=== PATIENT | female | born 1955 | race Caucasian/White ===

== ENCOUNTER → 2016-05-12 | Outpatient (CLI) | payer OTHER ==
[~2016-05-12] MED LIST: CHOL100027 PO; CLC100X PO; CLON1TAB3 PO; CLTP PO; EFFSR75 PO; FURO20TA PO; IBUP-1050 PO; LEVO100T PO; LISI-792 PO; NRN/300 PO; OMEP40CA41 PO; POTA-327 PO; ULT/50 PO
--- NOTE | 2016-05-12 13:16 | MAMMOGRAPHY REPORT ---
BILATERAL DIGITAL SCREENING MAMMOGRAM TOMOSYNTHESIS WITH CAD: 05/12/2016 CLINICAL HISTORY: Routine screening. Patient has no complaints. TECHNIQUE: Breast tomosynthesis in addition to standard 2D mammography was performed. Current study was also evaluated with a Computer Aided Detection (CAD) system. COMPARISON: Comparison is made to exams dated: 04/24/2015 mammogram, 02/10/2014 mammogram, 01/15/2013 mammogram, 01/17/2012 mammogram, 12/24/2010 mammogram, and 12/17/2009 mammogram - [facility]. BREAST COMPOSITION: There are scattered areas of fibroglandular density in both breasts. FINDINGS: No suspicious masses, calcifications, or areas of architectural distortion are noted in e ither breast. There has been no significant interval change compared to prior exams. IMPRESSION: ACR BI-RADS CATEGORY 1: NEGATIVE There is no mammographic evidence of malignancy. A 1 year screening mammogram is recommended. The p atient will receive written notification of the results. Approximately 10% of breast cancers are not detected with mammography. A negative mammographic repor t should not delay biopsy if a clinically suggestive mass is present. Ingris Noble M.D. ah/:05/12/2016 12:46:22 General Cargo Clerk: Shala VILLASENOR(Romero)(M), [facility] letter sent: Normal 1/2 BI-RADS Code: ACR BI-RADS Category 1: Negative
== END | disposition home or self-care (01) ==
LOC: C.MAMM 11:32
PROVIDERS: ATTEND Family Medicine
DX: Z12.31 Encounter for screening mammogram for malignant neoplasm of breast (principal)

== ENCOUNTER 2020-11-02 00:29 | Inpatient (IN) ==
[2020-11-02] MEDS ORDERED: SODIUM CHLORIDE 0.9% 1000ML 1,000 ML IV ONE (00:55)
[2020-11-02] MEDS ORDERED: KETOROLAC TROMETHAMINE 15 MG/ML VIAL IV STA (00:55)
[2020-11-02] MEDS ORDERED: ACETAMINOPHEN 500 MG TAB PO STA (00:55)
--- NOTE | 2020-11-02 01:00 | Emergency Department Note ---
Impression & Plan Pneumonia due to COVID-19 virus, Total body pain, Hypoxia ED Provider Note Name: FILIBERTO SIMMONS Age: 65 Sex: F Arrives Via: Ambulance Informant: Patient ED Provider: Reagan Galeana MD Chief Complaint: Shortness of breath Impression: See Above Medical Decision Makin yr old female with extensive PMH who arrives with 10 days of covid symptoms, weakness and worsening breathing difficulty last few days. Arrives via ems as too shob and weak to get around at home. Exam with diffuse crackles throughout the no wheezing, TTP anywhere on body, and generally weak. Unable to ambulate due to weakness thsu given IV fluids. Labs obtained with elevated dimer. CXR with covid findings. EKG without ischemia. CTA chest with covid pneumonia without pe. Patient a bit improved with fluids though sats starting to trend down. She is not tolerating outpatient management and I do not feel she will do well with attempt to send home. With worsening sats seems reasonable trying steroids thus Decadron given. Prior Medical Record and Triage/Nursing Notes reviewed by Me Additional history obtained from chart Differentials:Reactive airway disease, pneumonia, pneumothorax, COPD, CHF, infections, cardiac ischemia, pulmonary embolism, musculoskeletal, gastrointestinal, as well as other pathologies. Vital Signs: reviewed and remarkable for mild hypoxia Interventions: saline lock, nss bolus, tylenol po, toradol iv, morphine iv, decadron iv Labs:Reviewed and remarkable for +dimer Imaging:X ray results are stated below per my interpretation: Chest: 1 view: Covid pnuemonia pattern [facility] Radiologist interpretation reviewed by me: CT A Chest No acute PE. Diffuse multifocal viral pattern EKG:Per My Interpretation: Indication SOB: NSR 81 bpm, qtc 455. No Ectopy. No Ischemia. Compared to EKG 05/03/11, no significant changes. Cardiac/Tele Monitoring: Cardiac Monitoring: An Order was placed for continuous cardiac monitoring. The monitor shows a rate of 80 with a normal sinus rhythm. Consults:Dr Aram Solomon hospitalist Plan: Disposition:Hospitalization. Condition: Good History of Present Illness:65 yr old female arrives for evaluation of covid symptoms. Patient positive for covid about 10 days ago. She has had coughs, chills, chest pains, headaches, shortness of breath, body aches, fevers, weakness. No syncope, abdominal pain, nausea, vomiting, urinary/bowel symptoms, leg swelling, rashes, nor other symptoms. No medications taken for this. Exertion makes body aches worse, rest makes better. Arrives as symptoms have not yet resolved. Did not receive covid vaccination. ROS: See above HPI for pertinent positives & negatives. A total of 10 systems reviewed and were otherwise negative. Past Medical History:See Below Past Surgical History:See Below Family History:See Below Social History:See Below Home Medications:See Below Allergies:Paroxetine Vitals:Blood Pressure: 165/77, Pulse 79, RR 22, T 37.1C, O2 92% on RA Physical Exam: GENERAL: Patient is tired appearing and in minimal distress. EYES: No scleral icterus, unremarkable pupils. ENT: Mucous membranes moist, no nasal congestion. NECK: No masses appreciated, nomeningismus, trachea is midline. RESPIRATORY: No dyspnea. Clear to auscultation and equal bilaterally. No wheeze, no rhonchi. CARDIOVASCULAR: Regular rate and rhythm.No murmurs, rubs, gallops appreciated. GASTROINTESTINAL: Abdomen soft, non-tender, no peritonitis.Bowel sounds positive.No masses appreciated. BACK: No midline tenderness, no CVA tenderness EXTREMITIES: Normal motion all extremities, no cyanosis, no edema. NEUROLOGIC: Alert and oriented, no acute motor or sensory deficits, no focal weakness, cranial nerves grossly intact. SKIN: No rash, no jaundice, no diaphoresis. PSYCH: Appropriate GCS: 15 ED Course: Times/Reassessments: gradually improving weakness though sats trending down. Too weak to even walk to bathroom unassisted Reagan Galeana MD Past Med/Surg History Medical History Carpal tunnel syndrome Depression Fibromyalgia Heart disease Hypertension Surgical History History of cholecystectomy History of hand surgery Social History Smoking Status: Never smoker Second Hand Exposure: No; Do You Dip or Chew Tobacco: No; Hx Alcohol Use: Yes Alcohol type: wine Hx Substance Use: No Preferred Language: Uzbek Communication Ability: Effective Visual Impairment: No Limitations Hearing Ability: Normal Theatrical Dresser Required: No Beliefs That Will Affect Care: None Current Living Situation: Family current occupational status: unemployed Other Information That Helps Us Care for You: No Feels Safe at Home: Yes Safety Concerns: Feels Safe At This Time Assistive Devices: Denture - Upper, Denture - Lower, Glasses and Hearing Aid - Bilateral Allergies Allergies Allergy/AdvReac Type Severity Reaction Status Date / Time paroxetine AdvReac Unknown Dizziness. Verified 11/02/20 02:11 Home Meds Home Medications Medication Instructions Recorded Confirmed aspirin 81 mg tablet,delayed 81 mg PO DAILY 10/12/18 11/02/20 release (Aspir-) atorvastatin 20 mg tablet 20 mg PO PM 10/12/18 11/02/20 cholecalciferol (vitamin D3) 25 1,000 unit PO DAILY 10/12/18 11/02/20 mcg (1,000 unit) capsule (Vitamin D3) diclofenac sodium 1 % topical gel 2 g TOPICAL QID PRN 10/12/18 11/02/20 (Voltaren) furosemide 20 mg tablet (Lasix) 20 mg PO DAILY 10/12/18 11/02/20 levothyroxine 100 mcg tablet 100 mcg PO QAM 10/12/18 11/02/20 (Synthroid) losartan 25 mg tablet (Cozaar) 25 mg PO DAILY 10/12/18 11/02/20 omeprazole 20 mg capsule,delayed 40 mg PO DAILY 10/12/18 11/02/20 release potassium chloride 10 mEq 10 meq PO DAILY 10/12/18 11/02/20 tablet,extended release(part/cryst) (Klor-Con M) doxepin 50 mg capsule 50 mg PO BID 11/02/20 11/02/20 gabapentin 300 mg capsule 300 mg PO BID 11/02/20 11/02/20 levalbuterol tartrate 45 1 puff INHALATION Q4 PRN 11/02/20 11/02/20 mcg/actuation aerosol inhaler topiramate 100 mg tablet 200 mg PO BID 11/02/20 11/02/20 venlafaxine 150 mg 150 mg PO DAILY 11/02/20 11/02/20 capsule,extended release 24 hr venlafaxine 37.5 mg 37.5 mg PO DAILY 11/02/20 11/02/20 capsule,extended release 24 hr Results & Data (ED) Vital Signs Vital Signs - 24 hr 11/02/20 00:52 11/02/20 01:00 11/02/20 01:11 Temperature 36.8 C Temperature Source Oral Pulse Rate 83 79 Pulse Rate from SpO2 Sensor Respiratory Rate 18 17 Respiratory Effort / Characteristics Short of Breath Respiratory Depth Normal Respiratory Pattern Regular Blood Pressure 147/97 H 124/89 Blood Pressure Mean 113 100 Pulse Oximetry 93 93 93 Oxygen Delivery Method Room Air Room Air Room Air Sepsis Recent Fever Within 48 Hours No Sepsis New/Unexplained Change in Mental Status No Sepsis Action Taken by Nursing No Action Required 11/02/20 01:30 11/02/20 02:00 11/02/20 02:30 Temperature Temperature Source Pulse Rate 74 74 76 Pulse Rate from SpO2 Sensor 76 Respiratory Rate 18 18 14 Respiratory Effort / Characteristics Respiratory Depth Respiratory Pattern Blood Pressure 146/92 H 133/74 135/76 Blood Pressure Mean 110 93 95 Pulse Oximetry 95 97 96 Oxygen Delivery Method Room Air Room Air Sepsis Recent Fever Within 48 Hours Sepsis New/Unexplained Change in Mental Status Sepsis Action Taken by Nursing 11/02/20 03:00 11/02/20 03:30 11/02/20 04:00 Temperature Temperature Source Pulse Rate 71 74 68 Pulse Rate from SpO2 Sensor 71 69 Respiratory Rate 20 23 21 Respiratory Effort / Characteristics Respiratory Depth Respiratory Pattern Blood Pressure 136/78 115/76 136/89 Blood Pressure Mean 97 89 104 Pulse Oximetry 94 95 91 Oxygen Delivery Method Room Air Sepsis Recent Fever Within 48 Hours Sepsis New/Unexplained Change in Mental Status Sepsis Action Taken by Nursing 11/02/20 05:00 Temperature Temperature Source Pulse Rate 67 Pulse Rate from SpO2 Sensor Respiratory Rate 16 Respiratory Effort / Characteristics Respiratory Depth Respiratory Pattern Blood Pressure 149/96 H Blood Pressure Mean 113 Pulse Oximetry 92 Oxygen Delivery Method Sepsis Recent Fever Within 48 Hours Sepsis New/Unexplained Change in Mental Status Sepsis Action Taken by Nursing Laboratory Data Result diagrams: 11/02/20 00:45 11/02/20 00:45 Lab Results 11/02/20 11/02/20 11/02/20 Range/Units 00:45 00:45 00:45 WBC 3.84 L (4.8-10.8) K/uL RBC 4.22 (4.2-5.4) M/uL Hgb 12.3 (12.0-16.0) g/dL Hct 36.6 L (37-47) % MCV 86.7 (80-100) fL MCH 29.1 (25-34) pg MCHC 33.6 (32-36) g/dL RDW Std Deviation 47.5 H (36.4-46.3) fL RDW Coeff of Marielos 14.9 H (11.5-14.5) % Plt Count 230 (130-400) K/uL MPV 10.9 H (7.4-10.4) fL Immature Gran % (Auto) 0.5 % Neut % (Auto) 58.6 % Lymph % (Auto) 29.7 % [place] % (Auto) 10.7 % Eos % (Auto) 0.5 % Baso % (Auto) 0.0 % Neut # (Auto) 2.25 (1.4-6.5) K/uL Lymph # (Auto) 1.14 L (1.2-3.4) K/uL [place] # (Auto) 0.41 (0.11-0.59) K/uL Eos # (Auto) 0.02 (0-0.5) K/uL Baso # (Auto) 0.00 (0-0.2) K/uL Immature Gran # (Auto) 0.02 (0.00-0.02) K/uL D-Dimer 1750 H* (0-500) ug/L FEU Sodium 145 (136-145) mmol/L Potassium 3.5 (3.5-5.1) mmol/L Chloride 117 H (98-107) mmol/L Carbon Dioxide 17 L (21-32) mmol/L Anion Gap 11.0 (3-11) BUN 28 H (7-18) mg/dl Creatinine 1.15 (0.6-1.2) mg/dl Est Cr Clr Drug Dosing Not Reportable Est GFR ( Amer) 58.6 ml/min Est GFR (Non-Af Amer) 50.6 ml/min BUN/Creatinine Ratio 24.3 H (10-20) Glucose 97 (70-99) mg/dl Calcium 8.6 (8.5-10.1) mg/dl Total Bilirubin 0.4 (0.2-1) mg/dl Direct Bilirubin 0.2 (0-0.2) mg/dl AST 68 H (15-37) U/L ALT 57 (12-78) U/L Alkaline Phosphatase 58 (45-117) U/L Troponin I < 0.015 (0-0.045) ng/ml Total Protein 7.8 (6.4-8.2) gm/dl Albumin 3.2 L (3.4-5.0) gm/dl Administered Medications Potassium Chloride 40 meq/ (Lactated Ringer's) 1,020 mls @ 80 mls/hr IV .[id number] ONE Stop: 11/02/20 18:18 Last Admin: 11/02/20 05:55 Dose: 80 mls/hr Documented by: [id number] Remdesivir 200 mg/ Sodium (Chloride) 250 mls @ 125 mls/hr IV ONE STA; Protocol Stop: 11/02/20 07:33 Last Admin: 11/02/20 05:55 Dose: 125 mls/hr Documented by: [id number] Tramadol HCl (Tramadol Hcl 50 Mg Tablet) 25 - 50 mg PO Q4H PRN PRN Reason: Pain Stop: 12/02/20 05:33 Last Admin: 11/02/20 05:42 Dose: 50 mg Documented by: [id number] Discontinued Medications Acetaminophen (Acetaminophen 500 Mg Tab) 1,000 mg PO NOW STA Stop: 11/02/20 00:56 Last Admin: 11/02/20 01:24 Dose: 1,000 mg Documented by: [id number] Dexamethasone Sodium Phosphate (DexamethasonePf 10 Mg/Ml Vial) 10 mg IV NOW ONE Stop: 11/02/20 04:33 Last Admin: 11/02/20 04:40 Dose: 10 mg Documented by: [id number] Doxycycline Hyclate (Doxycycline Hyclate 100 Mg Cap) 100 mg PO NOW STA Stop: 11/02/20 05:35 Last Admin: 11/02/20 05:42 Dose: 100 mg Documented by: [id number] Sodium Chloride (Nss 1000ml) 1,000 mls @ 999 mls/hr IV .Q1H1M ONE Stop: 11/02/20 01:55 Last Infusion: 11/02/20 02:25 Dose: 0 mls/hr Documented by: [id number] Admin: 11/02/20 01:24 Dose: 999 mls/hr Documented by: [id number] Ioversol (Optiray 320 125ml) 125 ml IV ONCE ONE Stop: 11/02/20 02:32 Last Admin: 11/02/20 02:31 Dose: 119 ml Documented by: [id number] Ketorolac Tromethamine (Ketorolac Tromethamine 15 Mg/Ml Vial) 10 mg IV NOW STA Stop: 11/02/20 00:56 Last Admin: 11/02/20 01:23 Dose: 10 mg Documented by: [id number] Morphine Sulfate (Morphine Sulfate 10 Mg/Ml Carp/Vial) 6 mg IV NOW STA Stop: 11/02/20 03:23 Last Admin: 11/02/20 03:30 Dose: 6 mg Documented by: [id number] Ondansetron HCl (Ondansetron Inj 2 Mg/Ml 2 Ml Vial) 4 mg IV NOW STA Stop: 11/02/20 03:23 Last Admin: 11/02/20 03:30 Dose: 4 mg Documented by: [id number] Discharge Plan Visit Data Chief Complaint: Shortness of Breath/Dyspnea Stated Complaint: +COVID; CHEST PAIN;SHORT OF BREATH; DIARRHEA ED Provider: Reagan Galeana Discharge Problem: Pneumonia due to COVID-19 virus, Total body pain, Hypoxia Patient Disposition: Admitted As Inpatient Discharge Instructions Interventions: ED Discharge Assessment Last Done: 11/02/20 06:08
[2020-11-02 01:09] LABS: Eosinophils # (auto) 0.02 K/uL (0-0.5); Eosinophils % (auto) 0.5 %; Hematocrit (blood only) 36.6 % (37-47); Hemoglobin 12.3 g/dL (12.0-16.0); Immature Granulocytes # (auto) 0.02 K/uL (0.00-0.02); Immature Granulocytes % (auto) 0.5 %; Lymphocytes # (auto) 1.14 K/uL (1.2-3.4); Lymphocytes % (auto) 29.7 %; Mean Corpuscular Hemoglobin 29.1 pg (25-34); Mean Corpuscular Hgb Conc 33.6 g/dL (32-36); Mean Corpuscular Volume 86.7 fL (80-100); Mean Platelet Volume 10.9 fL (7.4-10.4); Monocytes # (auto) 0.41 K/uL (0.11-0.59); Monocytes % (auto) 10.7 %; Neutrophils # (auto) 2.25 K/uL (1.4-6.5); Neutrophils % (auto) 58.6 %; Platelet Count 230 K/uL (130-400); RDW Coefficient of Variation 14.9 % (11.5-14.5); RDW Standard Deviation 47.5 fL (36.4-46.3); Red Blood Count 4.22 M/uL (4.2-5.4); White Blood Count 3.84 K/uL (4.8-10.8)
[2020-11-02 01:18] LABS: Alanine Aminotransferase 57 U/L (12-78); Albumin Level 3.2 gm/dl (3.4-5.0); Aspartate Aminotransferase 68 U/L (15-37); BUN Creatinine Ratio 24.3 (10-20); Bilirubin Direct 0.2 mg/dl (0-0.2); Blood Urea Nitrogen 28 mg/dl (7-18); Calcium 8.6 mg/dl (8.5-10.1); Carbon Dioxide 17 mmol/L (21-32); Chloride 117 mmol/L (98-107); Est GFR (African American) 58.6 ml/min; Est GFR (Non-African American) 50.6 ml/min; Glucose 97 mg/dl (70-99); Potassium 3.5 mmol/L (3.5-5.1); Sodium 145 mmol/L (136-145)
[2020-11-02 01:23] LABS: Alkaline Phosphatase 58 U/L (45-117); Bilirubin,Total 0.4 mg/dl (0.2-1); Total Protein 7.8 gm/dl (6.4-8.2); Troponin I < 0.015 ng/ml (0-0.045)
[2020-11-02 01:32] LABS: D Dimer 1750 ug/L FEU (0-500)
[2020-11-02] MEDS ORDERED: OPTIRAY 320 125ml IV ONE (02:31)
[2020-11-02] MEDS ORDERED: MoRPHine SULFATE 10 MG/ML CARP/VIAL IV STA (03:22)
[2020-11-02] MEDS ORDERED: ONDANSETRON INJ 2 MG/ML 2 ML VIAL IV STA (03:22)
[2020-11-02] MEDS ORDERED: dexAMETHasone**PF** 10 MG/ML VIAL IV ONE (04:32)
--- NOTE | 2020-11-02 05:22 | History & Physical Report ---
Date of Service November 02, 2020 Assessment & Plan (1) Pneumonia due to COVID-19 virus: Plan: Severe illness given O2 sats less than 94% Complicated bronchitis, patient not septic chronic diastolic heart failure (EF 55%, TTE 2019), patient on the dry side hx nonocclusive CAD/PVD hypertension, slightly elevated secondary to illness mood disorder/schizophrenia/fibromyalgia, at baseline hypothyroidism, euthyroid as of recent outpatient TSH Medical telemetry Decadron, Remdesivir for severe COVID-19 pneumonia (Patient was counseled regarding potential adverse effects from Remdesivir therapy and provided with patient education sheet.) Facilitate home BP meds, may be dose titration IVF, hold home diuretic until patient euvolemic DVT prophylaxis. Lovenox subcu Full code Text document was generated using iWelcome voice recognition software. It may contain grammatical or spelling errors. Kindly contact undersigned for clarification of any documentation item in question. History of Present Illness Chief Complaint: Worsening shortness of breath, Covid Primary Care Provider: Kennedy Brooks MD History obtained from patient and records. Medical history significant for chronic diastolic heart failure (EF 55%, TTE 2019), nonocclusive CAD, hypertension, PVD, mood disorder/schizophrenia/fibromya lgia, hypothyroidism. Last confinement 2006 for headache, possibly psychogenic. Plan 10 days ago, patient noted flulike illness after being at the [employer] [place] with her daughter. Dry cough symptoms, congestion, body aches and pain. Patient received COVID-19 vaccine at [facility] few months back. Patient seen at the ER. COVID-19 test was positive. Patient discharged home and advised to self quarantine and return to ER for worsening symptoms. Worsening cough symptoms productive of yellow sputum with chills. Worsening shortness of breath. Chest pain from coughing as per patient Patient returned to the ER last night. Lowest O2 sats at the ER was 92 on room air IV Decadron given at the ER. 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 Verified 11/02/20 02:11 Home Medications Medication Instructions Recorded Confirmed Type aspirin 81 mg tablet,delayed 81 mg PO DAILY 10/12/18 11/02/20 History release (Aspir-) atorvastatin 20 mg tablet 20 mg PO PM 10/12/18 11/02/20 History cholecalciferol (vitamin D3) 25 1,000 unit PO DAILY 10/12/18 11/02/20 History mcg (1,000 unit) capsule (Vitamin D3) diclofenac sodium 1 % topical gel 2 g TOPICAL QID PRN 10/12/18 11/02/20 History (Voltaren) furosemide 20 mg tablet (Lasix) 20 mg PO DAILY 10/12/18 11/02/20 History levothyroxine 100 mcg tablet 100 mcg PO QAM 10/12/18 11/02/20 History (Synthroid) losartan 25 mg tablet (Cozaar) 25 mg PO DAILY 10/12/18 11/02/20 History omeprazole 20 mg capsule,delayed 40 mg PO DAILY 10/12/18 11/02/20 History release potassium chloride 10 mEq 10 meq PO DAILY 10/12/18 11/02/20 History tablet,extended release(part/cryst) (Klor-Con M) doxepin 50 mg capsule 50 mg PO BID 11/02/20 11/02/20 History gabapentin 300 mg capsule 300 mg PO BID 11/02/20 11/02/20 History levalbuterol tartrate 45 1 puff INHALATION Q4 PRN 11/02/20 11/02/20 History mcg/actuation aerosol inhaler topiramate 100 mg tablet 200 mg PO BID 11/02/20 11/02/20 History venlafaxine 150 mg 150 mg PO DAILY 11/02/20 11/02/20 History capsule,extended release 24 hr venlafaxine 37.5 mg 37.5 mg PO DAILY 11/02/20 11/02/20 History capsule,extended release 24 hr Past Med/Surg History Medical History Carpal tunnel syndrome Depression Fibromyalgia Heart disease Hypertension Surgical History History of cholecystectomy History of hand surgery Social History Smoking Status: Never smoker Second Hand Exposure: No; Do You Dip or Chew Tobacco: No; Hx Alcohol Use: Yes Alcohol type: wine Hx Substance Use: No Preferred Language: Romanian Communication Ability: Effective Visual Impairment: No Limitations Hearing Ability: Normal Asbestos Cloth Inspector Required: No Beliefs That Will Affect Care: None Current Living Situation: Family current occupational status: unemployed Other Information That Helps Us Care for You: No Feels Safe at Home: Yes Safety Concerns: Feels Safe At This Time Assistive Devices: Denture - Upper, Denture - Lower, Glasses and Hearing Aid - Bilateral Review of Systems Review of Systems: As per HPI, all 10 systems reviewed, all other ROS negative Physical Exam Physical Exam: GENERAL: Anxious, morbidly obese, pleasant, slightly hard of hearing, no respiratory distress SKIN: Normal color, warm HEENT: [place] palpebral conjunctivae, no ptosis, dry buccal mucosa NECK : Supple, short neck, no tenderness CHEST : Decreased breath sounds, no tenderness HEART : RRR, no obvious murmurs ABDOMEN: Some distention, nontender EXTREMITIES : Minimal LE swelling, no LE tenderness, no other conspicuous defo rmities noted NEUROLOGIC : Coherent, no facial asymmetry, mild hearing impairment, no other gross focality Results & Data Results & Data ([facility]) Vital Signs (Past 12 Hours) Vital Signs Temp Pulse Resp BP Pulse Ox 11/02/20 04:00 68 21 136/89 91 11/02/20 03:30 74 23 115/76 95 11/02/20 03:00 71 20 136/78 94 11/02/20 02:30 76 14 135/76 96 11/02/20 02:00 74 18 133/74 97 11/02/20 01:30 74 18 146/92 H 95 11/02/20 01:11 93 11/02/20 01:00 79 17 124/89 93 11/02/20 00:52 36.8 C 83 18 147/97 H 93 Laboratory Results Laboratory Results WBC 3.84 K/uL (4.8-10.8) L 11/02/20 00:45 RBC 4.22 M/uL (4.2-5.4) 11/02/20 00:45 Hgb 12.3 g/dL (12.0-16.0) 11/02/20 00:45 Hct 36.6 % (37-47) L 11/02/20 00:45 MCV 86.7 fL (80-100) 11/02/20 00:45 MCH 29.1 pg (25-34) 11/02/20 00:45 MCHC 33.6 g/dL (32-36) 11/02/20 00:45 RDW Std Deviation 47.5 fL (36.4-46.3) H 11/02/20 00:45 RDW Coeff of Marielos 14.9 % (11.5-14.5) H 11/02/20 00:45 Plt Count 230 K/uL (130-400) 11/02/20 00:45 MPV 10.9 fL (7.4-10.4) H 11/02/20 00:45 Immature Gran % (Auto) 0.5 % 11/02/20 00:45 Neut % (Auto) 58.6 % 11/02/20 00:45 Lymph % (Auto) 29.7 % 11/02/20 00:45 [place] % (Auto) 10.7 % 11/02/20 00:45 Eos % (Auto) 0.5 % 11/02/20 00:45 Baso % (Auto) 0.0 % 11/02/20 00:45 Neut # (Auto) 2.25 K/uL (1.4-6.5) 11/02/20 00:45 Lymph # (Auto) 1.14 K/uL (1.2-3.4) L 11/02/20 00:45 [place] # (Auto) 0.41 K/uL (0.11-0.59) 11/02/20 00:45 Eos # (Auto) 0.02 K/uL (0-0.5) 11/02/20 00:45 Baso # (Auto) 0.00 K/uL (0-0.2) 11/02/20 00:45 Immature Gran # (Auto) 0.02 K/uL (0.00-0.02) 11/02/20 00:45 D-Dimer 1750 ug/L FEU (0-500) H* 11/02/20 00:45 Sodium 145 mmol/L (136-145) 11/02/20 00:45 Potassium 3.5 mmol/L (3.5-5.1) 11/02/20 00:45 Chloride 117 mmol/L (98-107) H 11/02/20 00:45 Carbon Dioxide 17 mmol/L (21-32) L 11/02/20 00:45 Anion Gap 11.0 (3-11) 11/02/20 00:45 BUN 28 mg/dl (7-18) H 11/02/20 00:45 Creatinine 1.15 mg/dl (0.6-1.2) 11/02/20 00:45 Est Cr Clr Drug Dosing Not Reportable 11/02/20 00:45 Est GFR ( Amer) 58.6 ml/min 11/02/20 00:45 Est GFR (Non-Af Amer) 50.6 ml/min 11/02/20 00:45 BUN/Creatinine Ratio 24.3 (10-20) H 11/02/20 00:45 Glucose 97 mg/dl (70-99) 11/02/20 00:45 Calcium 8.6 mg/dl (8.5-10.1) 11/02/20 00:45 Total Bilirubin 0.4 mg/dl (0.2-1) 11/02/20 00:45 Direct Bilirubin 0.2 mg/dl (0-0.2) 11/02/20 00:45 AST 68 U/L (15-37) H 11/02/20 00:45 ALT 57 U/L (12-78) 11/02/20 00:45 Alkaline Phosphatase 58 U/L (45-117) 11/02/20 00:45 Troponin I < 0.015 ng/ml (0-0.045) 11/02/20 00:45 Total Protein 7.8 gm/dl (6.4-8.2) 11/02/20 00:45 Albumin 3.2 gm/dl (3.4-5.0) L 11/02/20 00:45 Diagnostic Findings CTA chest initial read: No previous studyfor comparison. Heart is mildlyenlarged with a left ventricular configuration. Proximal thoracic aorta is mildlydistended measuring 4.6 x 4.2 cm. Evaluation of the pulmonaryarteries is mildlylimited bydelayed phase of contrast enhancement (195 pound 40 units in the main pulmonaryartery. Some contrast is visualized within segmental vessels without filling defect. Thoracic esophagus appears normal. Mediastinal lymph nodes are not enlarged. Central airways appear normal. There are multifocal patchyairspace opacities. There is no pneumothorax or pleural fluid collection. Impression: Multifocal airspace opacitysuggesting multifocal pneumonia such as a Covid pneumonia EKG as per my interpretation rate 80, NSR, LAD, LAFB, LVH, serial abnormalities inferior leads
[2020-11-02] MEDS ORDERED: REMDESIVIR 200 MG in SODIUM CHLORIDE 0.9% 210 ML IV STA (05:34)
[2020-11-02] MEDS ORDERED: POTASSIUM CHLORIDE 40 MEQ in LACTATED RINGER'S 1,000 ML IV ONE (05:34)
[2020-11-02] MEDS ORDERED: DOXYCYCLINE HYCLATE 100 MG CAP PO STA (05:34)
[2020-11-02] MEDS: traMADol HCL 50 MG TABLET PO PRN ×2 (05:42→17:08)
[2020-11-02] MEDS ORDERED: PROMETHAZINE HCL 12.5 MG in SODIUM CHLORIDE 0.9% 50 ML IV PRN (06:28)
[2020-11-02] MEDS ORDERED: ACETAMINOPHEN 325 MG TAB PO PRN (06:28)
[2020-11-02] MEDS: LEVOTHYROXINE SODIUM 100 MCG TABLET PO SCH (07:30)
[2020-11-02] MEDS: PANTOprazole 40 MG TAB PO SCH (07:30)
[2020-11-02] MEDS: LEVALBUTEROL TARTRATE 15 GM HFA.AER.AD INH SCH ×3 (07:53→19:21)
--- NOTE | 2020-11-02 08:46 | XRay Report ---
XR chest 1V portable CLINICAL HISTORY: covid, chest pain COMPARISON STUDY: October 24, 2020 FINDINGS: No pneumothorax. No pleural effusion. Interval worsening of previously seen reticular opacities with interval development of superimposed patchy airspace component involving predominantly bilateral mid to lower lungs. Cardiomediastinal silhouette is slightly enlarged since prior study which could be exaggerated by por table technique and slightly decreased inspiratory effort. Minimal pulmonary vascular congestion is seen. Aorta is tortuous.. Osseous structures: Minimal degenerative changes of the spine. IMPRESSION: 1. Interval worsening of infiltrative opacities within bilateral lungs which might represent multifo reginald pneumonia. 2. Mild interval prominence of cardiomediastinal silhouette and pulmonary vascular congestion. Pleas e correlate above-mentioned findings with clinical presentation of cardiac abnormalities. Attention o n follow-up imaging. ACT 112: Negative or not required by law. The above report was generated using voice recognition software. It may contain grammatical, syntax o r spelling errors. Electronically signed by: Deisy Pérez DO 11/02/2020 8:45 AM
[2020-11-02] MEDS: TOPIRAMATE 100 MG TAB PO SCH ×2 (09:00→19:49)
[2020-11-02] MEDS: ENOXAPARIN INJ 40 MG/0.4 ML SYR SQ SCH (09:00)
[2020-11-02] MEDS: VENLAFAXINE HCL XR 37.5 MG CAPXR PO SCH (09:01)
[2020-11-02] MEDS: ASPIRIN 81 MG ECTAB PO SCH (09:01)
[2020-11-02] MEDS: guaiFENesin 600 MG TABCR PO SCH ×2 (09:01→19:49)
[2020-11-02] MEDS: VENLAFAXINE HCL XR 150 MG CAPXR PO SCH (09:01)
[2020-11-02] MEDS: LOSARTAN POTASSIUM 25 MG TAB PO SCH (09:01)
[2020-11-02] MEDS: GABAPENTIN 300 MG CAP PO SCH ×2 (09:01→19:48)
--- NOTE | 2020-11-02 09:08 | CT Scan Report ---
CT ANGIOGRAM OF THE CHEST CLINICAL HISTORY: PE. COVID + COMPARISON STUDY: No previous studies for comparison. TECHNIQUE: Following the IV administration of 119 mL of Optiray, CT angiogram of the thorax was perfo rmed from the thoracic inlet to the lung bases utilizing the pulmonary embolus protocol. Images are r eviewed in the axial, sagittal, and coronal planes. IV contrast was administered without complication . MIP imaging was performed. A dose lowering technique was utilized adhering to the principles of [place] SHREYA. CT DOSE: 738.07 mGy.cm FINDINGS: No definite pulmonary embolus is seen however opacification within main pulmonary artery is insuffici ent for adequate evaluation for pulmonary embolus. Main pulmonary artery is normal in caliber. Right and left pulmonary arteries are mildly dilated. No evidence of right heart strain. Ascending and descending portion of thoracic aorta are ectatic, measuring up to 4.4 cm within its asc ending portion and 3.1 cm within this descending aspect. No significant atherosclerotic involvement o f aortic wall is seen. No dissection is seen. Visualized greater arteries are patent. There is common origin of the right brachial and and left internal carotid arteries. There is no axillary, supra clavicle or internal mammary lymphadenopathy seen. Mediastinal lymph node s are not significantly enlarged. There is mild prominence of the right hilar lymph node measuring up to 1.6 cm in size, likely reactive. There is mild four-chamber cardiomegaly. No pericardial effusion. Mild coronary calcifications. Visualized portion of thyroid gland shows heterogeneous attenuation, enlarged left thyroid lobe and 1 .4 cm left thyroid nodule. Evaluation of esophagus shows mild hiatal hernia. Tracheobronchial tree is patent. There are multiple irregular centrilobular and peribronchovascular infiltrative opacities with surrou nding groundglass attenuation and minimal septal thickening are seen throughout bilateral lungs, most prominent within left lower lobe in this patient with history of Covid pneumonia. No pleural effusion seen. -4 mm pulmonary nodule is seen within right middle lobe (4/126) Limited evaluation of upper abdominal viscera shows no evidence of acute abnormalities. Concentric ca lcification is seen within subdiaphragmatic aspect of the right liver lobe. Osseous structures: Multilevel degenerative changes of the spine. Multiple subchondral cysts within t he right and left humeral heads. IMPRESSION: 1. No definite evidence of pulmonary embolus however opacification within main pulmonary artery is i nsufficient for adequate evaluation for pulmonary embolus. No evidence of right heart strain. Dilated right and left pulmonary arteries could be seen in pulmonary hypertension. 2. Multifocal pneumonia in this patient with history of Covid pneumonia. Small pulmonary nodule with in the right middle lobe might be due to infectious/inflammatory etiology. Short-term follow-up in 4- [address] of the chest on nonemergency basis is recommended. 3. Ectasia of ascending and descending portion of thoracic aorta without significant atherosclerotic involvement. Attention on follow-up imaging. 4. Large left thyroid lobe and 1.4 cm left thyroid nodule. Please correlate above-mentioned findings with prior history of thyroid disease. Further evaluation with thyroid ultrasound might be considere d. 5. The rest of findings as above. ACT 112: Positive. There are findings on this exam that require communication between the performing entity and the patient following Patient Test Result Information Act ([place] Act 112) guidelines. The above report was generated using voice recognition software. It may contain grammatical, syntax o r spelling errors. Electronically signed by: Deisy Pérez DO 11/02/2020 9:07 AM
[2020-11-02] MEDS: SODIUM CHLORIDE 0.9% 10ML FLUSH IV SCH (11:50)
--- NOTE | 2020-11-02 12:40 | Electrocardiogram Report ---
Test Reason : Blood Pressure : / mmHG Vent. Rate : 081 BPM Atrial Rate : 081 BPM P-R Int : 170 ms QRS Dur : 100 ms QT Int : 392 ms P-R-T Axes : 028 -19 020 degrees QTc Int : 455 ms Poor data quality, interpretation may be adversely affected Normal sinus rhythm Moderate voltage criteria for LVH, may be normal variant Borderline ECG When compared with ECG of 03-MAY-2011 11:40, Borderline criteria for Inferior infarct are no longer Present T wave amplitude has decreased in Anterior leads Confirmed by Jb Jackman ([id number]) on 11/02/2020 12:39:37 PM Referred By: REFERRED SELF Confirmed By:Jb Jackman
[2020-11-02] MEDS ORDERED: LEVALBUTEROL TARTRATE 15 GM HFA.AER.AD INH SCH (15:00)
--- NOTE | 2020-11-02 16:26 | Hospitalist Progress Note ---
Date of Service November 02, 2020 Assessment & Plan (1) Pneumonia due to COVID-19 virus: Plan: present on admission with worsening SOB, dry cough and chills COVID 19 positive on 10/24/20 CTA chest showed no definite evidence of pulmonary embolus however opacification within main pulmonary artery is insufficient for adequate evaluation for pulmonary embolus. No evidence of right heart strain. Multifocal pneumonia in this patient with history of Covid pneumonia. Started on dexamethasone and remdesivir on 11/02 (day#1) Continue oxygen supplement and guaifenesin Will monitor LFT while on Remdesivir Will follow inflammatory marker such as ESR, Ferritin, CRP Continue encourage patient about proning Continue doxycycline for possible bronchitis, will reassess Continue monitor closely Chronic diastolic heart failure No sign of volume overload Most recent EF 55%, TTE 2019) Will resume lasix in am Continue monitor Elevated D-dimer Due to acute illness with COVID 19 CTA chest showed no evidence of PE CAD Will hold statin while on Remdesivir Continue aspirin 81mg daily DVT prophylaxis. Lovenox subq Full code Admission and Anticipated Discharge Date Admission Date: November 02, 2020 Subjective Patient was seen and examined for follow-up of shortness of breath due to Covid 19 Lying in bed with no acute distress Patient said that she is having a hard time to bring up the phlegm She said that she has a dry cough Continue to require oxygen supplement Denies any chest pain, palpitation, dizziness, and fever. Physical Exam Physical Exam: General- No acute distress Head- atraumatic Eyes- PERRL, EOMI, ENT- oropharynx clear Neck- supple, no JVD Lungs- decrease BS Heart- regular rhythm; no murmur Abdomen- normal bowel sounds, soft, nontender Extremities- no calf tenderness Neuro- alert, oriented x 3; PERRL, EOMI; no facial palsy; no dysarthria Skin- warm & dry Results & Data Results & Data ([facility]) Vital Signs (Past 12 Hours) Vital Signs Temp Pulse Pulse Resp BP BP Pulse Ox 11/02/20 15:39 36.7 C 63 19 137/86 95 11/02/20 11:37 73 18 94 11/02/20 11:11 36.9 C 72 19 106/74 93 11/02/20 07:53 68 18 94 11/02/20 07:27 72 18 132/77 92 11/02/20 06:22 37.1 C 79 22 165/77 H 92 11/02/20 06:00 67 18 143/87 H 91 11/02/20 05:30 67 16 125/71 91 11/02/20 05:00 67 16 149/96 H 92
[2020-11-02] MEDS: DOXYCYCLINE HYCLATE 100 MG CAP PO SCH (19:48)
[2020-11-02] MEDS ORDERED: ATORVASTATIN 20 MG TAB PO SCH (21:00)
[2020-11-03] MEDS: LEVOTHYROXINE SODIUM 100 MCG TABLET PO SCH (05:48)
[2020-11-03] MEDS: PANTOprazole 40 MG TAB PO SCH (05:48)
[2020-11-03] MEDS: traMADol HCL 50 MG TABLET PO PRN ×2 (05:55→19:50)
[2020-11-03 06:22] LABS: Eosinophils # (auto) 0.02 K/uL (0-0.5); Eosinophils % (auto) 0.4 %; Hematocrit (blood only) 35.2 % (37-47); Hemoglobin 11.3 g/dL (12.0-16.0); Immature Granulocytes # (auto) 0.02 K/uL (0.00-0.02); Immature Granulocytes % (auto) 0.4 %; Lymphocytes # (auto) 1.23 K/uL (1.2-3.4); Lymphocytes % (auto) 25.4 %; Mean Corpuscular Hemoglobin 28.4 pg (25-34); Mean Corpuscular Hgb Conc 32.1 g/dL (32-36); Mean Corpuscular Volume 88.4 fL (80-100); Mean Platelet Volume 10.9 fL (7.4-10.4); Monocytes # (auto) 0.47 K/uL (0.11-0.59); Monocytes % (auto) 9.7 %; Neutrophils % (auto) 64.1 %; Platelet Count 231 K/uL (130-400); RDW Coefficient of Variation 15.1 % (11.5-14.5); RDW Standard Deviation 49.3 fL (36.4-46.3); Red Blood Count 3.98 M/uL (4.2-5.4); White Blood Count 4.84 K/uL (4.8-10.8)
[2020-11-03 06:52] LABS: Albumin Level 2.7 gm/dl (3.4-5.0); BUN Creatinine Ratio 24.4 (10-20); C Reactive Protein 0.9 mg/dl (0-0.29); Calcium 7.8 mg/dl (8.5-10.1); Creatinine Clr Calc Pharmacy 76.2 ml/min; Est GFR (African American) 71.2 ml/min; Est GFR (Non-African American) 61.4 ml/min; Potassium 3.5 mmol/L (3.5-5.1)
[2020-11-03 06:58] LABS: Albumin Globulin Ratio 0.7 (0.9-2); Bilirubin,Total 0.3 mg/dl (0.2-1); Ferritin 109.4 ng/ml (8-388); Globulin 3.9 gm/dl (2.5-4.0); Total Protein 6.6 gm/dl (6.4-8.2)
[2020-11-03] MEDS: LEVALBUTEROL TARTRATE 15 GM HFA.AER.AD INH SCH ×2 (07:16→19:56)
[2020-11-03] MEDS ORDERED: FUROSEMIDE 20 MG in SYRINGE 0 ML IV ONE (08:45)
[2020-11-03] MEDS: dexAMETHasone 6 MG in SYRINGE 0 ML IV SCH (09:08)
[2020-11-03] MEDS: ASPIRIN 81 MG ECTAB PO SCH (09:08)
[2020-11-03] MEDS: ENOXAPARIN INJ 40 MG/0.4 ML SYR SQ SCH (09:08)
[2020-11-03] MEDS: GABAPENTIN 300 MG CAP PO SCH ×2 (09:09→20:54)
[2020-11-03] MEDS: TOPIRAMATE 100 MG TAB PO SCH ×2 (09:09→20:54)
[2020-11-03] MEDS: guaiFENesin 600 MG TABCR PO SCH ×2 (09:09→20:54)
[2020-11-03] MEDS: VENLAFAXINE HCL XR 150 MG CAPXR PO SCH (09:10)
[2020-11-03] MEDS: LOSARTAN POTASSIUM 25 MG TAB PO SCH (09:10)
[2020-11-03] MEDS: VENLAFAXINE HCL XR 37.5 MG CAPXR PO SCH (09:10)
[2020-11-03] MEDS: FUROSEMIDE 20 MG TAB PO SCH (09:10)
[2020-11-03] MEDS: DOXYCYCLINE HYCLATE 100 MG CAP PO SCH ×2 (09:13→20:54)
[2020-11-03] MEDS: REMDESIVIR 100 MG in SODIUM CHLORIDE 0.9% 230 ML IV SCH (12:42)
[2020-11-03] MEDS: SODIUM CHLORIDE 0.9% 10ML FLUSH IV SCH (14:19)
--- NOTE | 2020-11-03 18:16 | Hospitalist Progress Note ---
Date of Service November 03, 2020 Assessment & Plan (1) Pneumonia due to COVID-19 virus: Plan: present on admission with worsening SOB, dry cough and chills COVID 19 positive on 10/24/20 CTA chest showed no definite evidence of pulmonary embolus however opacification within main pulmonary artery is insufficient for adequate evaluation for pulmonary embolus. No evidence of right heart strain. Multifocal pneumonia in this patient with history of Covid pneumonia. Started on dexamethasone and remdesivir on 11/02 (day#1) Continue oxygen supplement and guaifenesin Continue monitor LFT while on Remdesivir will follow inflammatory marker such as ESR, Ferritin, CRP Continue encourage patient about proning Continue doxycycline for possible bronchitis, will reassess Continue monitor closely Chronic diastolic heart failure No sign of volume overload Most recent EF 55%, TTE 2019) Lasix 20mg IV x1 given Will resume PO lasix Continue monitor Elevated D-dimer Due to acute illness with COVID 19 CTA chest showed no evidence of PE CAD Will hold statin while on Remdesivir Continue aspirin 81mg daily DVT prophylaxis. Lovenox subq Full code Admission and Anticipated Discharge Date Admission Date: November 02, 2020 Subjective Patient was seen and examined for follow-up of shortness of breath due to Covid 19 Lying in bed with no acute distress Patient said that she is having a hard time to bring up the phlegm She was saturated well on RA Denies any chest pain, palpitation, dizziness, and fever. Physical Exam Physical Exam: General- No acute distress Head- atraumatic Eyes- PERRL, EOMI, ENT- oropharynx clear Neck- supple, no JVD Lungs- decrease BS Heart- regular rhythm; no murmur Abdomen- normal bowel sounds, soft, nontender Extremities- no calf tenderness Neuro- alert, oriented x 3; PERRL, EOMI; no facial palsy; no dysarthria Skin- warm & dry Results & Data Results & Data ([facility]) Vital Signs (Past 12 Hours) Vital Signs Temp Pulse Pulse Resp BP Pulse Ox Pulse Ox 11/03/20 15:46 37.1 C 77 18 128/77 94 11/03/20 11:53 36.9 C 73 18 128/78 93 11/03/20 08:00 68 11/03/20 07:29 36.9 C 68 20 111/63 92 11/03/20 07:16 67 18 94 11/03/20 06:28 94
[2020-11-04] MEDS: PANTOprazole 40 MG TAB PO SCH (06:23)
[2020-11-04] MEDS: LEVOTHYROXINE SODIUM 100 MCG TABLET PO SCH (06:24)
[2020-11-04] MEDS: LEVALBUTEROL TARTRATE 15 GM HFA.AER.AD INH SCH (07:19)
[2020-11-04] MEDS ORDERED: LEVALBUTEROL TARTRATE 15 GM HFA.AER.AD INH PRN ×3 (07:38→07:49)
[2020-11-04] MEDS: ASPIRIN 81 MG ECTAB PO SCH (08:12)
[2020-11-04] MEDS: ENOXAPARIN INJ 40 MG/0.4 ML SYR SQ SCH (08:12)
[2020-11-04] MEDS: FUROSEMIDE 20 MG TAB PO SCH (08:12)
[2020-11-04] MEDS: VENLAFAXINE HCL XR 150 MG CAPXR PO SCH (08:12)
[2020-11-04] MEDS: VENLAFAXINE HCL XR 37.5 MG CAPXR PO SCH (08:12)
[2020-11-04] MEDS: TOPIRAMATE 100 MG TAB PO SCH ×2 (08:13→20:13)
[2020-11-04] MEDS: LOSARTAN POTASSIUM 25 MG TAB PO SCH (08:13)
[2020-11-04] MEDS: dexAMETHasone 6 MG in SYRINGE 0 ML IV SCH (08:13)
[2020-11-04] MEDS: DOXYCYCLINE HYCLATE 100 MG CAP PO SCH (08:13)
[2020-11-04] MEDS: guaiFENesin 600 MG TABCR PO SCH ×2 (08:13→20:13)
[2020-11-04] MEDS: GABAPENTIN 300 MG CAP PO SCH ×2 (08:13→20:13)
[2020-11-04] MEDS: traMADol HCL 50 MG TABLET PO PRN ×2 (08:27→20:12)
[2020-11-04 08:47] LABS: Albumin Level 2.9 gm/dl (3.4-5.0); BUN Creatinine Ratio 27.8 (10-20); C Reactive Protein 0.8 mg/dl (0-0.29); Calcium 8.2 mg/dl (8.5-10.1); Creatinine Clr Calc Pharmacy 75.9 ml/min; Est GFR (African American) 70.3 ml/min; Est GFR (Non-African American) 60.6 ml/min; Potassium 3.2 mmol/L (3.5-5.1)
[2020-11-04 08:50] LABS: Albumin Globulin Ratio 0.7 (0.9-2); Bilirubin,Total 0.4 mg/dl (0.2-1); Globulin 3.9 gm/dl (2.5-4.0); Total Protein 6.8 gm/dl (6.4-8.2)
[2020-11-04] MEDS: SODIUM CHLORIDE 0.9% 10ML FLUSH IV SCH (12:10)
[2020-11-04] MEDS: REMDESIVIR 100 MG in SODIUM CHLORIDE 0.9% 230 ML IV SCH (12:10)
[2020-11-04] MEDS ORDERED: POTASSIUM CHLORIDE CRTAB 20 MEQ TABCR PO STA (14:29)
--- NOTE | 2020-11-04 14:36 | Hospitalist Progress Note ---
Date of Service November 04, 2020 Assessment & Plan (1) Pneumonia due to COVID-19 virus: Plan: Presented with worsening SOB, dry cough and chills COVID 19 positive on 10/24/20 CTA chest showed no definite evidence of pulmonary embolus however opacification within main pulmonary artery is insufficient for adequate evaluation for pulmonary embolus. No evidence of right heart strain. Multifocal pneumonia in this patient with history of Covid pneumonia. Started on dexamethasone and remdesivir on 11/03 (day#2) Currently on room air Continue guaifenesin Continue monitor LFT while on Remdesivir Currently on doxycycline. Procal from yesterday is negative, will discontinue for now and monitor Patient encouraged to get OOB to chair PT Chronic diastolic heart failure Euvolemic Most recent EF 55%, TTE 2019) Continue po lasix Hypokalemic this morning. Replete Continue monitor Elevated D-dimer Due to acute illness with COVID 19 CTA chest showed no evidence of PE CAD Statin held while on Remdesivir Continue aspirin 81mg daily DVT prophylaxis. Lovenox subq Full code Admission and Anticipated Discharge Date Admission Date: November 02, 2020 Subjective 65-year-old woman with history of chronic diastolic heart failure, nonocclusive CAD, hypertension, PVD, mood disorder/schizophrenia/fibromyalgia, hypothyroidism who presented with dry cough, congestion, body aches and pains. Being managed for COVID-19 pneumonia. Patient seen and examined this morning. Reports persistent cough. No nausea or vomiting. Reports diffuse abdominal pain. Reports generalized body aches. Denies any diarrhea Review of Systems Review of Systems: Other review of systems negative except as stated in subjective above Physical Exam Constitutional: + well hydrated and + obese; no acute distress Eyes: PERRL, conjunctivae normal, anicteric sclerae ENMT: external ear and nose normal, oropharynx normal Respiratory: normal respiratory effort; no respiratory distress Auscultation: + diminished lung sounds On room air Cardiovascular: Rate/Rhythm: regular rate and regular rhythm S1-S2 Gastrointestinal (Abdomen): normal bowel sounds, soft, nontender, no hepatosplenomegaly Musculoskeletal: no cyanosis or clubbing, extremities motor strength 5/5 Neurologic: PERRL, EOMI, accommodation nl, no face palsy, no dysarthria Psychiatric: A+Ox3, euthymic affect Results & Data Results & Data ([facility]) Vital Signs (Past 12 Hours) Vital Signs Temp Pulse Resp BP Pulse Ox Pulse Ox 11/04/20 12:00 94 11/04/20 11:44 36.6 C 84 24 153/89 H 94 11/04/20 08:01 37.0 C 74 20 131/78 95 11/04/20 07:19 75 16 94 11/04/20 03:00 36.9 C 75 19 145/90 H 95 Laboratory Results Abnormal lab results 11/04/20 11/04/20 Range/Units 07:18 07:18 ESR 49 H (0-30) mm/hr Potassium 3.2 L (3.5-5.1) mmol/L Chloride 120 H (98-107) mmol/L Carbon Dioxide 18 L (21-32) mmol/L BUN 27 H (7-18) mg/dl BUN/Creatinine Ratio 27.8 H (10-20) Calcium 8.2 L (8.5-10.1) mg/dl C-Reactive Protein 0.80 H (0-0.29) mg/dl Albumin 2.9 L (3.4-5.0) gm/dl Albumin/Globulin Ratio 0.7 L (0.9-2)
[2020-11-05] MEDS: PANTOprazole 40 MG TAB PO SCH (05:22)
[2020-11-05] MEDS: LEVOTHYROXINE SODIUM 100 MCG TABLET PO SCH (05:22)
[2020-11-05 06:29] LABS: Hematocrit (blood only) 35.5 % (37-47); Hemoglobin 11.8 g/dL (12.0-16.0); Mean Corpuscular Hemoglobin 28.4 pg (25-34); Mean Corpuscular Hgb Conc 33.2 g/dL (32-36); Mean Corpuscular Volume 85.5 fL (80-100); Mean Platelet Volume 10.5 fL (7.4-10.4); Platelet Count 267 K/uL (130-400); RDW Coefficient of Variation 14.8 % (11.5-14.5); RDW Standard Deviation 46.1 fL (36.4-46.3); Red Blood Count 4.15 M/uL (4.2-5.4); White Blood Count 4.93 K/uL (4.8-10.8)
[2020-11-05 06:55] LABS: BUN Creatinine Ratio 29.7 (10-20); C Reactive Protein 0.44 mg/dl (0-0.29); Calcium 8.4 mg/dl (8.5-10.1); Creatinine Clr Calc Pharmacy 77.8 ml/min; Est GFR (Non-African American) 62.2 ml/min; Potassium 3.3 mmol/L (3.5-5.1)
[2020-11-05 08:13] LABS: Magnesium 1.8 mg/dl (1.8-2.4); Phosphorus 2.5 mg/dl (2.5-4.9)
[2020-11-05] MEDS: TOPIRAMATE 100 MG TAB PO SCH ×2 (08:20→20:19)
[2020-11-05] MEDS: VENLAFAXINE HCL XR 37.5 MG CAPXR PO SCH (08:20)
[2020-11-05] MEDS: ASPIRIN 81 MG ECTAB PO SCH (08:20)
[2020-11-05] MEDS: LOSARTAN POTASSIUM 25 MG TAB PO SCH (08:20)
[2020-11-05] MEDS: GABAPENTIN 300 MG CAP PO SCH ×2 (08:20→20:19)
[2020-11-05] MEDS: FUROSEMIDE 20 MG TAB PO SCH (08:20)
[2020-11-05] MEDS: dexAMETHasone 6 MG in SYRINGE 0 ML IV SCH (08:21)
[2020-11-05] MEDS: ENOXAPARIN INJ 40 MG/0.4 ML SYR SQ SCH (08:21)
[2020-11-05] MEDS: VENLAFAXINE HCL XR 150 MG CAPXR PO SCH (08:21)
[2020-11-05] MEDS: traMADol HCL 50 MG TABLET PO PRN ×2 (08:21→17:20)
[2020-11-05] MEDS: guaiFENesin 600 MG TABCR PO SCH ×2 (08:21→20:19)
[2020-11-05] MEDS: REMDESIVIR 100 MG in SODIUM CHLORIDE 0.9% 230 ML IV SCH (11:31)
[2020-11-05] MEDS: SODIUM CHLORIDE 0.9% 10ML FLUSH IV SCH (11:31)
--- NOTE | 2020-11-05 14:59 | Hospitalist Progress Note ---
Date of Service November 05, 2020 Assessment & Plan (1) Pneumonia due to COVID-19 virus: Plan: Presented with worsening SOB, dry cough and chills COVID 19 positive on 10/24/20 CTA chest showed no definite evidence of pulmonary embolus however opacification within main pulmonary artery is insufficient for adequate evaluation for pulmonary embolus. No evidence of right heart strain. Multifocal pneumonia in this patient with history of Covid pneumonia. Started on dexamethasone and remdesivir on 11/03 (day#4) Currently on room air Continue guaifenesin Continue supportive care Continue monitor LFT while on Remdesivir Will check ambulatory pulse ox in AM Chronic diastolic heart failure Euvolemic Most recent EF 55%, TTE 2019) Continue po lasix Hypokalemic this morning. Replete Continue monitor Elevated D-dimer Due to acute illness with COVID 19 CTA chest showed no evidence of PE CAD Statin held while on Remdesivir Continue aspirin 81mg daily DVT prophylaxis. Lovenox subq Full code Plan: Possible dc tomorrow Admission and Anticipated Discharge Date Admission Date: November 02, 2020 Subjective 65-year-old woman with history of chronic diastolic heart failure, nonocclusive CAD, hypertension, PVD, mood disorder/schizophrenia/fibromyalgia, hypothyroidism who presented with dry cough, congestion, body aches and pains. Being managed for COVID-19 pneumonia. Patient seen and examined this morning. Reports persistent cough. No nausea or vomiting. Reports abd pain is mildly improved Reports poor appetite and food tastes differently Denies any diarrhea Review of Systems Review of Systems: Other review of systems negative except as stated in subjective above Physical Exam Constitutional: + well hydrated and + obese; no acute distress Eyes: PERRL, conjunctivae normal, anicteric sclerae ENMT: external ear and nose normal, oropharynx normal Respiratory: normal respiratory effort; no respiratory distress Auscultation: + diminished lung sounds Cardiovascular: Rate/Rhythm: regular rate and regular rhythm S1 S2 Gastrointestinal (Abdomen): normal bowel sounds, soft, nontender, no hepatosplenomegaly Musculoskeletal: no cyanosis or clubbing, extremities motor strength 5/5 Neurologic: PERRL, EOMI, accommodation nl, no face palsy, no dysarthria Psychiatric: A+Ox3, euthymic affect Results & Data Results & Data ([facility]) Vital Signs (Past 12 Hours) Vital Signs Temp Pulse Pulse Resp BP Pulse Ox Pulse Ox 11/05/20 12:00 94 11/05/20 11:00 36.5 C 93 H 20 165/83 H 94 11/05/20 07:58 61 11/05/20 07:00 36.8 C 75 18 157/81 H 95 11/05/20 03:26 36.7 C 68 17 149/91 H 94 Laboratory Results Abnormal lab results 11/05/20 11/05/20 11/05/20 Range/Units 05:44 05:44 05:44 RBC 4.15 L (4.2-5.4) M/uL Hgb 11.8 L (12.0-16.0) g/dL Hct 35.5 L (37-47) % RDW Coeff of Marielos 14.8 H (11.5-14.5) % MPV 10.5 H (7.4-10.4) fL ESR 42 H (0-30) mm/hr Sodium 146 H (136-145) mmol/L Potassium 3.3 L (3.5-5.1) mmol/L Chloride 121 H (98-107) mmol/L Carbon Dioxide 19 L (21-32) mmol/L BUN 29 H (7-18) mg/dl BUN/Creatinine Ratio 29.7 H (10-20) Calcium 8.4 L (8.5-10.1) mg/dl C-Reactive Protein 0.44 H (0-0.29) mg/dl
[2020-11-05] MEDS: POTASSIUM ACETATE 10 MEQ in 0.9 % SODIUM CHLORIDE 100 ML IV SCH ×2 (15:39→16:43)
[2020-11-06] MEDS: PANTOprazole 40 MG TAB PO SCH (05:55)
[2020-11-06] MEDS: LEVOTHYROXINE SODIUM 100 MCG TABLET PO SCH (05:55)
[2020-11-06 07:40] LABS: Hemoglobin 11.9 g/dL (12.0-16.0); Mean Corpuscular Hemoglobin 28.2 pg (25-34); Mean Corpuscular Hgb Conc 33.1 g/dL (32-36); Mean Corpuscular Volume 85.3 fL (80-100); Mean Platelet Volume 10.6 fL (7.4-10.4); Platelet Count 289 K/uL (130-400); RDW Standard Deviation 46.2 fL (36.4-46.3); Red Blood Count 4.22 M/uL (4.2-5.4); White Blood Count 5.21 K/uL (4.8-10.8)
[2020-11-06 08:09] LABS: BUN Creatinine Ratio 26.3 (10-20); C Reactive Protein 0.31 mg/dl (0-0.29); Calcium 8.6 mg/dl (8.5-10.1); Creatinine Clr Calc Pharmacy 74.5 ml/min; Est GFR (African American) 70.3 ml/min; Est GFR (Non-African American) 60.6 ml/min; Potassium 3.2 mmol/L (3.5-5.1)
[2020-11-06 08:10] LABS: D Dimer 1430 ug/L FEU (0-500)
[2020-11-06] MEDS: VENLAFAXINE HCL XR 37.5 MG CAPXR PO SCH (08:32)
[2020-11-06] MEDS: VENLAFAXINE HCL XR 150 MG CAPXR PO SCH (08:32)
[2020-11-06] MEDS: TOPIRAMATE 100 MG TAB PO SCH (08:32)
[2020-11-06] MEDS: LOSARTAN POTASSIUM 25 MG TAB PO SCH (08:32)
[2020-11-06] MEDS: GABAPENTIN 300 MG CAP PO SCH (08:33)
[2020-11-06] MEDS: ASPIRIN 81 MG ECTAB PO SCH (08:33)
[2020-11-06] MEDS: ENOXAPARIN INJ 40 MG/0.4 ML SYR SQ SCH (08:33)
[2020-11-06] MEDS: dexAMETHasone 6 MG in SYRINGE 0 ML IV SCH (08:33)
[2020-11-06] MEDS: guaiFENesin 600 MG TABCR PO SCH (08:33)
[2020-11-06] MEDS ORDERED: POTASSIUM CHLORIDE CRTAB 20 MEQ TABCR PO STA (08:38)
[2020-11-06 09:14] LABS: Magnesium 1.9 mg/dl (1.8-2.4); Phosphorus 2.9 mg/dl (2.5-4.9)
[2020-11-06] MEDS: POTASSIUM ACETATE/NSS 10 MEQ/105 ML BAG IV SCH ×2 (09:39→10:39)
[2020-11-06] MEDS: FUROSEMIDE 20 MG TAB PO SCH (10:38)
[2020-11-06] MEDS: REMDESIVIR 100 MG in SODIUM CHLORIDE 0.9% 230 ML IV SCH (11:21)
--- NOTE | 2020-11-06 11:42 | XRay Report ---
KUB HISTORY: Generalized abdominal pain. COMPARISON: None. FINDINGS: The bowel gas pattern is unremarkable. There are no dilated loops of small bowel to suggest an obstruction. No renal calculi. No ureteral calculi. No pneumoperitoneum or pneumatosis. Prior ch olecystectomy. Mild osteoarthritis within the bilateral hips. 1.9 cm peripheral calcification overlyi ng the right hepatic dome. The heart is mildly enlarged. IMPRESSION: No evidence for bowel obstruction. ACT 112: Negative or not required by law. Electronically signed by: Geovanni Cheney M.D. 11/06/2020 11:40 AM
[2020-11-06] MEDS: SODIUM CHLORIDE 0.9% 10ML FLUSH IV SCH (13:35)
--- NOTE | 2020-11-06 14:40 | Discharge Summary ---
Date of Service November 06, 2020 Admission HPI Per Admitting Provider History obtained from patient and records. Medical history significant for chronic diastolic heart failure (EF 55%, TTE 2019), nonocclusive CAD, hypertension, PVD, mood disorder/schizophrenia/fibromyalgia, hypothyroidism. Last confinement 2006 for headache, possibly psychogenic. Plan 10 days ago, patient noted flulike illness after being at the [employer] with her daughter. Dry cough symptoms, congestion, body aches and pain. Patient received COVID-19 vaccine at [facility] few months back. Patient seen at the ER. COVID-19 test was positive. Patient discharged home and advised to self quarantine and return to ER for worsening symptoms. Worsening cough symptoms productive of yellow sputum with chills. Worsening shortness of breath. Chest pain from coughing as per patient Patient returned to the ER last night. Lowest O2 sats at the ER was 92 on room air IV Decadron given at the ER. Medical History as above Surgical History : Dental surgery, hand/finger surgery, hysterectomy, laparoscopic cholecystectomy, cataract surgeries, umbilical hernia repair Family History : Lung cancer, ovarian cancer, liver cancer, heart disease Personal/Social history : Non-smoker, no EtOH intake, retired [email or web address] Admission Exam Per Admitting Provider GENERAL: Anxious, morbidly obese, pleasant, slightly hard of hearing, no respiratory distress SKIN: Normal color, warm HEENT: Mccall palpebral conjunctivae, no ptosis, dry buccal mucosa NECK : Supple, short neck, no tenderness CHEST : Decreased breath sounds, no tenderness HEART : RRR, no obvious murmurs ABDOMEN: Some distention, nontender EXTREMITIES : Minimal LE swelling, no LE tenderness, no other conspicuous deformities noted NEUROLOGIC : Coherent, no facial asymmetry, mild hearing impairment, no other gross focality Principal Diagnosis COVID 19 pneumonia Discharge Exam Constitutional + well hydrated and + obese; no acute distress Eyes PERRL, conjunctivae normal, anicteric sclerae ENMT external ear and nose normal, oropharynx normal Respiratory normal respiratory effort; no respiratory distress Auscultation: + diminished lung sounds Cardiovascular Rate/Rhythm: regular rate and regular rhythm S1 S2 Gastrointestinal (Abdomen) normal bowel sounds, soft, nontender, no hepatosplenomegaly Musculoskeletal no cyanosis or clubbing, extremities motor strength 5/5 Neurologic PERRL, EOMI, accommodation nl, no face palsy, no dysarthria Psychiatric A+Ox3, euthymic affect Discharge Data Allergies Allergy/AdvReac Type Severity Reaction Status Date / Time paroxetine AdvReac Unknown Dizziness. Verified 11/02/20 02:11 Consultations 11/02/20 04:37 ED Decision to Admit Stat Ordered Studies 11/02/20 01:51 CT angio chest PE protocol Urgent No definite pulmonary embolus is seen however opacification within main pulmonary artery is insufficient for adequate evaluation for pulmonary embolus. Main pulmonary artery is normal in caliber. Right and left pulmonary arteries are mildly dilated. No evidence of right heart strain. Ascending and descending portion of thoracic aorta are ectatic, measuring up to 4.4 cm within its ascending portion and 3.1 cm within this descending aspect. No significant atherosclerotic involvement of aortic wall is seen. No dissection is seen. Visualized greater arteries are patent. There is common origin of the right brachial and and left internal carotid arteries. There is no axillary, supra clavicle or internal mammary lymphadenopathy seen. Mediastinal lymph nodes are not significantly enlarged. There is mild prominence of the right hilar lymph node measuring up to 1.6 cm in size, likely reactive. There is mild four-chamber cardiomegaly. No pericardial effusion. Mild coronary calcifications. Visualized portion of thyroid gland shows heterogeneous attenuation, enlarged left thyroid lobe and 1.4 cm left thyroid nodule. Evaluation of esophagus shows mild hiatal hernia. Tracheobronchial tree is patent. There are multiple irregular centrilobular and peribronchovascular infiltrative opacities with surrounding groundglass attenuation and minimal septal thickening are seen throughout bilateral lungs, most prominent within left lower lobe in this patient with history of Covid pneumonia. No pleural effusion seen. -4 mm pulmonary nodule is seen within right middle lobe (4/126) Limited evaluation of upper abdominal viscera shows no evidence of acute abnormalities. Concentric calcification is seen within subdiaphragmatic aspect of the right liver lobe. Osseous structures: Multilevel degenerative changes of the spine. Multiple subchondral cysts within the right and left humeral heads. IMPRESSION: 1. No definite evidence of pulmonary embolus however opacification within main pulmonary artery is insufficient for adequate evaluation for pulmonary embolus. No evidence of right heart strain. Dilated right and left pulmonary arteries could be seen in pulmonary hypertension. 2. Multifocal pneumonia in this patient with history of Covid pneumonia. Small pulmonary nodule within the right middle lobe might be due to infectious/inflammatory etiology. Short-term follow-up in 4-[address] of the chest on nonemergency basis is recommended. 3. Ectasia of ascending and descending portion of thoracic aorta without significant atherosclerotic involvement. Attention on follow-up imaging. 4. Large left thyroid lobe and 1.4 cm left thyroid nodule. Please correlate above-mentioned findings with prior history of thyroid disease. Further eval uation with thyroid ultrasound might be considered. 5. The rest of findings as above. Hospital Course (1) Pneumonia due to COVID-19 virus: Presented with worsening SOB, dry cough and chills COVID 19 positive on 10/24/20 CTA chest showed no definite evidence of pulmonary embolus however opacification within main pulmonary artery is insufficient for adequate evaluation for pulmonary embolus. No evidence of right heart strain. Multifocal pneumonia in this patient with history of Covid pneumonia. Was treated with dexamethasone and remdesivir while inpatient Has been on room air Symptoms improving. Patient still has some cough, fatigue and poor appetite due to changes in taste Chronic diastolic heart failure Euvolemic Most recent EF 55%, TTE 2019) Continue home lasix Was hypokalemic and required multiple repletions Home potassium increased to 20mEq daily Elevated D-dimer Due to acute illness with COVID 19 CTA chest showed no evidence of PE CAD Continue home aspirin 81mg daily and statin Patient provided home isolation instructions and advised to follow up with PCP Total Time Total Time Spent Total Time Spent (In Minutes): 50 Total Time Includes: Examination of the Patient, Discharge Planning and Medication Reconciliation Discharge Plan Discharge Items Patient Disposition: Home - Self-Care Reason For Visit: Cough and body aches Discharge Diagnosis: COVID 19 pneumonia Activity: Resume your previous activity Non-emergency contact: Primary Care Provider Call non-emergency contact if: you have any medication questions and your symptoms worsen Follow-up/Referrals: Kennedy Brooks MD [Primary Care Provider] - (Date & Time 11/13/2020 10:00 AM Provider Faraz Youssef MD [facility] PLEASE NOTE THAT THIS IS A TELEPHONE APPOINTMENT. YOUR PROVIDER WILL CALL YOU AT THE APPOINTMENT TIME. IF YOU HAVE ANY QUESTIONS REGARDING THIS APPOINTMENT, PLEASE CALL ) Diet: Heart Healthy Addtl Attending Provider Instructions: Mrs Hendricks. You came to the hospital complaining about cough, shortness of breath and body aches. You were evaluated and managed for COVID 19 pneumonia. You are being discharged home. Please adhere to home isolation instructions as we discussed. Your home potassium was increased to 20mEq daily. Please ensure follow up with your Primary Doctor as we discussed. It was a pleasure taking care of you. Addtl Obgyn Hospitalist Physician Provider Instructions: Home Isolation COVID-19 Instructions The following information about Home Isolation is from the CDC Website: https://www.cdc.gov/coronavirus/2019-ncov/hcp/evajbzwu-cgdjpvk-bahvay.html Stay home except to get medical care People who are mildly ill with COVID-19 are able to isolate at home during their illness. You should restrict activities outside your home, except for getting medical care. Do not go to work, school, or public areas. Avoid using public transportation, ride-sharing, or taxis. Separate yourself from other people and animals in your home People: As much as possible, you should stay in a specific room and away from other people in your home. Also, you should use a separate bathroom, if available. Animals: You should restrict contact with pets and other animals while you are sick with COVID-19, just like you would around other people. Although there have not been reports of pets or other animals becoming sick with COVID-19, it is still recommended that people sick with COVID-19 limit contact with animals until more information is known about the virus. When possible, have another member of your household care for your animals while you are sick. If you are sick with COVID-19, avoid contact with your pet, including petting, snuggling, being kissed or licked, and sharing food. If you must care for your pet or be around animals while you are sick, wash your hands before and after you interact with pets and wear a face mask. Call ahead before visiting your doctor If you have a medical appointment, call the healthcare provider and tell them that you have or may have COVID-19. This will help the healthcare providers office take steps to keep other people from getting infected or exposed. Wear a face mask You should wear a face mask when you are around other people (e.g., sharing a room or vehicle) or pets and before you enter a healthcare providers office. If you are not able to wear a face mask (for example, because it causes trouble br eathing), then people who live with you should not stay in the same room with you, or they should wear a face mask if they enter your room. Cover your coughs and sneezes Cover your mouth and nose with a tissue when you cough or sneeze. Throw used tissues in a lined trash can. Immediately wash your hands with soap and water for at least 20 seconds or, if soap and water are not available, clean your hands with an alcohol-based hand animal husbandry manager that contains at least 60% alcohol. Clean your hands often Wash your hands often with soap and water for at least 20 seconds, especially after blowing your nose, coughing, or sneezing; going to the bathroom; and before eating or preparing food. If soap and water are not readily available, use an alcohol-based hand animal husbandry manager with at least 60% alcohol, covering all surfaces of your hands and rubbing them together until they feel dry. Soap and water are the best option if hands are visibly dirty. Avoid touching your eyes, nose, and mouth with unwashed hands. Avoid sharing personal household items You should not share dishes, drinking glasses, cups, eating utensils, towels, or bedding with other people or pets in your home. After using these items, they should be washed thoroughly with soap and water. Clean all high-touch surfaces everyday High touch surfaces include counters, tabletops, doorknobs, bathroom fixtures, toilets, phones, keyboards, tablets, and bedside tables. Also, clean any surfaces that may have blood, stool, or body fluids on them. Use a household cleaning spray or wipe, according to the label instructions. Labels contain instructions for safe and effective use of the cleaning product including precautions you should take when applying the product, such as wearing gloves and making sure you have good ventilation during use of the product. Monitor your symptoms Seek prompt medical attention if your illness is worsening (e.g., difficulty breathing).Beforeseeking care, call your healthcare provider and tell them that you have, or are being evaluated for, COVID-19. Put on a face mask before you enter the facility. These steps will help the healthcare providers office to keep other people in the office or waiting room from getting infected or exposed. Ask your healthcare provider to call the local or state health department. Persons who are placed under active monitoring or facilitated self- monitoring should follow instructions provided by their local health department or occupational health professionals, as appropriate. When working with your local health department check their available hours. If you have a medical emergency and need to call 911, notify the dispatch personnel that you have, or are being evaluated for COVID-19. If possible, put on a face mask before emergency medical services arrive. Discontinuing home isolation Patients with confirmed COVID-19 should remain under home isolation precautions until the risk of secondary transmission to others is thought to be low. The decision to discontinue home isolation precautions should be made on a [id number] basis, in consultation with healthcare providers and [facility] and local health departments. Pending Studies at Discharge: No Stand-Alone Forms: [facility], Smoking Cessation Medications and DC Order Prescriptions: Continued atorvastatin 20 mg Tablet 20 mg PO PM RF: 0 aspirin [Aspir-81] 81 mg Tablet,Delayed Release (Dr/Ec) 81 mg PO DAILY RF: 0 levothyroxine [Synthroid] 100 mcg tablet 100 mcg PO QAM RF: 0 losartan [Cozaar] 25 mg Tablet 25 mg PO DAILY RF: 0 omeprazole 20 mg Capsule,Delayed Release(Dr/Ec) 40 mg PO DAILY RF: 0 furosemide [Lasix] 20 mg Tablet 20 mg PO DAILY RF: 0 cholecalciferol (vitamin D3) [Vitamin D3] 1,000 unit Capsule 1,000 unit PO DAILY RF: 0 diclofenac sodium [Voltaren] 1 % Gel 2 g TOPICAL QID PRN (Reason: Pain) RF: 0 doxepin 50 mg capsule 50 mg PO BID RF: 0 venlafaxine 37.5 mg capsule,extended release 24hr 37.5 mg PO DAILY RF: 0 venlafaxine 150 mg capsule,extended release 24hr 150 mg PO DAILY RF: 0 gabapentin 300 mg capsule 300 mg PO BID RF: 0 topiramate 100 mg tablet 200 mg PO BID RF: 0 levalbuterol tartrate 45 mcg/actuation HFA aerosol inhaler 1 puff INHALATION Q4 PRN (Reason: Wheezing) RF: 0 Changed potassium chloride [Klor-Con M10] 10 mEq tablet,ER particles/crystals 20 meq PO DAILY Qty: 60 RF: 0 Discharge Orders: Discharge Order (Routine); Ordered 11/06/20 Ordered By: Nasima Torres Admission Data Admit Date/Time: 11/02/20 05:29 Attending Provider: Nasima Torres I. Admit Provider: Nhan Chiu Primary Care Provider: Kennedy Brooks Other Providers: Nhan Chiu ; Harrison Xiao Other Interventions: Discharge Summary Assessment (RN) Last Done: 11/06/20 14:59
== END 2020-11-06 15:48 | disposition home or self-care (01) | DRG 177 ==
LOC: ED 00:29 → SUATTDRO 05:29 → 2E 05:29 → 2S 11-03 18:28

== ENCOUNTER 2024-01-16 19:02 | Inpatient (IN) ==
--- NOTE | 2024-01-16 19:42 | Emergency Department Note ---
Impression & Plan Weakness, Fall, Acute UTI, Foot pain, left, Confusion, Hypokalemia ED Provider Note Provider: Kam Browne MD DATE OF SERVICE: 01/16/2024 CHIEF COMPLAINT: Falls, shakiness, chest pain/shortness of breath HISTORY OF PRESENT ILLNESS: Patient is a 68-year-old female past medical history including hypertension and hypothyroidism presenting here today brought by family for evaluation. There are multiple complaints at play. Injured her left foot and ankle several months ago had some bruising and has had some ongoing issues with intermittent pain here. Has done physical therapy without much improvement and is having pain at times in the ankle and some tenderness here. Patient evidently was to the doctor and had x-rays at some point according to her. No new further injury here. Over the past month has been had several falls. Did strike the head at least 1 occasion but no loss of consciousness. Has been quite shaky according to family. Evidently did get the RSV flu shot around January 02 then family states since then they are unsure if this caused but she did not so much more shaky. Complaining intermittently again of pain in the left ankle. Having increased pain left 3 days across the chest and upper back with some shortness of breath associated. Not eating so well according to family but the patient denies significant abdominal pain to me. Again does report some low back pain. Had some transient numbness in the left leg but that is no longer present after one of the falls. Reports a little bit of neck soreness. Family stated seems at times he seems to be searching for words and will slow respond but no radha elucidation's reported. Patient evidently was at her primary doctor today but did not mention all these complaints and family was not there with her. They were concerned about her and convinced her to come to the emergency department tonight. She has been having issues with the shaking even driving and ended up on the median 1 time but did not lose consciousness. PAST MEDICAL HISTORY: As noted above MEDICATIONS: Reviewed home medication list includes aspirin 81 mg SOCIAL HISTORY: Non-smoker PHYSICAL EXAM: GENERAL: alert and oriented in no acute distress on stretcher family at bedside Head: normocephalic and atraumatic EYES: No injection, discharge or icterus. PERRL, EOMI. NECK: Trachea midline. Supple some slight pain in the posterior neck. ENT: Mucous membranes pink and moist. LUNGS: Airway patent. No retractions. Breath sounds clear with good air entry bilaterally. HEART: Regular rate and rhythm. Upper particulate right chest wall tenderness without crepitus ABDOMEN: Soft and non-tender, without guarding or rebound. No hepatosplenomegaly or masses BACK: No significant flank tenderness with some tenderness in the lumbar spine. No step-off. SKIN: Acyanotic, warm, dry, without rashes EXTREMITIES: Without swelling, tenderness or deformity with some mild tenderness of the left ankle but no crepitus or swelling or erythema appreciable. No significant tenderness of the bilateral calves or knees. NEUROLOGICAL: No focal deficits moving all extremities with occasionally slight tremor with movement. No aphasia. No facial droop or slurred speech. Sensation to gross touch normal. Ambulatory. EK bpm normal sinus rhythm. No PVC or PAC. No acute ST segment elevation or depression QTc of 459. CONTINUOUS CARDIAC MONITORING: was ordered and showed a heart rate of 70s to 90s bpm in normal sinus rhythm with a lot of artifact GCS 15. Patient's laboratory studies and imaging reviewed. Differential includes traumatic injury, fracture, dislocation, ICH, infection, dehydration, metabolic abnormality, hypo/hyperglycemia, electrolyte disturbance, anemia, hypoxia, cardiac sources, neurologic, as well as other pathologies. IMPRESSION/MEDICAL DECISION MAKING: Patient in no acute distress. Some of the symptoms appear to have developed over the course of some weeks to months particular with regard to the ankle and left foot. No clinical evidence of DVT on exam. Does have last several days some upper chest and back pain with some shortness of breath and given her limited mobility strongly considered completing a CTA of the chest to exclude PE. Given the fall CT of the head, cervical spine, chest abdomen pelvis and low back OB obtained. Neurologically intact at this time although occasionally little slow to answer. They states she has had some word finding but this has been again more chronic and not an acute change. No indication for thrombolytics or stroke alert at this point. Denies to me any significant URI symptoms but respiratory viral panel was completed. Blood work here without significant anemia leukocytosis. Normal platelet count. Mild hypokalemia potassium of 3 but otherwise fairly normal electrolytes at the magnesium 1.6 borderline. Creatinine elevated at 2 today BUN 14. It is worse than our prior laboratory studies but looking in the [facility] system with assistance of case management, creatinine 1.7 in the end of November. Thus not that far off from baseline. Laboratory CK and troponin not significantly elevated at this time. Lipase noted no significant transaminitis. Procalcitonin elevated doubt sepsis. Negative respiratory viral panel. Given the elevated creatinine, noncontrast CTs ordered instead of contrasted studies with his poor renal function. This does limit some evaluation of acute PE although my suspicions are bit lower as she is not particularly hypoxic or tachycardic. Chest wall pain is somewhat reproducible on palpation. Patient later requests something to help with the shaking and informed her that I do not have have an anti-shaking medicine. I specifically want to be careful with significant controlled substance in the 68-year-old with renal dysfunction and multiple falls. Will give some IV Tylenol she denied anything for pain does complain of some pain in the left ankle. Ankle x-ray from radiology question navicular fracture. Obtain dedicated foot images but will place in a short splint in the meantime as she does have some pain here. CT reports from radiology without acute intracranial bleed on the head. Age- indeterminate C7 compression fracture on the cervical spine images and believe this is more chronic. No specific neurological deficit the extremity. Family again does report that she seemed just a little bit off or confused at times. UA sent to exclude infection and does have some white blood cells and 3+ leuk esterase. Will give a dose of ceftriaxone pending culture results here but again the patient does not appear septic. Discussed with patient and family findings. Patient again with episodes of shaking and falls and significant difficulty with caring for self at home; family again concerned that the patient seems somewhat confused. Could not walk to the bathroom 1 assist to bedside commode. Patient with multiple flights of steps to get to her home. Discussed possible further observation here and they wish for this very much. Hospitalist team was consulted. DIAGNOSIS: Shakiness, falls, ambulatory dysfunction, left foot pain, chest pain, hypokalemia, UTI DISPOSITION: Hospitalist will evaluate Patient was agreeable with this plan. Past Med/Surg History Problem List (Updated 01/17/24 @ 05:43 by Nhan Chiu MD) Atypical chest pain Chest pain Hypokalemia (Acute) Confusion (Acute) Foot pain, left (Acute) Acute UTI (Acute) Fall (Acute) Weakness (Acute) Hypoxia (Acute) Total body pain (Acute) Pneumonia due to COVID-19 virus (Acute) Medical History Carpal tunnel syndrome Depression Fibromyalgia Heart disease Hypertension Surgical History History of cholecystectomy History of hand surgery Social History Smoking Status: Never smoker Second Hand Exposure: No; Do You Dip or Chew Tobacco: No; Hx Alcohol Use: No Hx Substance Use: No Preferred Language: Romansh Communication Ability: Effective Visual Impairment: No Limitations Hearing Ability: Normal Brake Repairer Required: No Beliefs That Will Affect Care: None Current Living Situation: Alone current occupational status: unemployed Other Information That Helps Us Care for You: No Feels Safe at Home: Yes Safety Concerns: Feels Safe At This Time Assistive Devices: Walker Allergies Allergies Allergy/AdvReac Type Severity Reaction Status Date / Time paroxetine AdvReac Unknown Dizziness. Verified 11/02/20 02:11 Home Meds Home Medications Medication Instructions Recorded Confirmed aspirin 81 mg tablet,delayed 81 mg PO DAILY 10/12/18 01/17/24 release (Aspir-) atorvastatin 20 mg tablet 40 mg PO PM 10/12/18 11/02/20 cholecalciferol (vitamin D3) 25 1,000 unit PO DAILY 10/12/18 01/17/24 mcg (1,000 unit) capsule (Vitamin D3) diclofenac sodium 1 % topical gel 2 g topical QID PRN Pain 10/12/18 11/02/20 (Voltaren) furosemide 20 mg tablet (Lasix) 20 mg PO DAILY 10/12/18 11/02/20 levothyroxine 100 mcg tablet 100 mcg PO QAM 10/12/18 01/16/24 (Synthroid) omeprazole 20 mg capsule,delayed 20 mg PO DAILY 10/12/18 11/02/20 release gabapentin 300 mg capsule 400 mg PO BID 11/02/20 11/02/20 venlafaxine 150 mg 150 mg PO DAILY 11/02/20 11/02/20 capsule,extended release 24 hr venlafaxine 37.5 mg 37.5 mg PO DAILY 11/02/20 11/02/20 capsule,extended release 24 hr amoxicillin 500 mg-potassium tab 01/16/24 clavulanate 125 mg tablet bupropion HCl 100 mg tablet,12 hr 100 mg PO 01/16/24 sustained-release calcium 200 mg (as tab 01/16/24 citrate)-vitamin D3 6.25 mcg (250 unit) tablet (Citracal-D3 Petites) doxepin 25 mg capsule 25 mg PO HS 01/16/24 01/16/24 levocetirizine 5 mg tablet 5 mg 01/16/24 losartan 25 mg tablet mg 01/16/24 multivitamin 01/16/24 nystatin 1 million unit capsule 100,000 unit PO 01/16/24 quetiapine 100 mg tablet 300 mg 01/16/24 semaglutide (weight loss) 0.5 mg subcut 01/16/24 mg/0.5 mL subcutaneous pen injector (Weadrianvy) spironolactone 25 mg tablet 25 mg 01/16/24 tizanidine 4 mg tablet 4 mg 01/16/24 torsemide 20 mg tablet 20 mg 01/16/24 triamcinolone acetonide 0.1 % applic topical 01/16/24 topical cream Probiotic 01/17/24 fluticasone furoate 100 inhalation 01/17/24 mcg-vilanterol 25 mcg/dose inhalation powder fluticasone furoate 100 inhalation 01/17/24 mcg-vilanterol 25 mcg/dose inhalation powder lifitegrast 5 % eye drops in a drp 01/17/24 dropperette (Xiidra) polyethylene glycol ea miscellaneous 01/17/24 Results & Data (ED) Vital Signs Vital Signs - 24 hr 01/16/24 19:05 01/16/24 19:41 01/16/24 19:42 Temperature 36.6 C Temperature Source Temporal Artery Scan Pulse Rate 99 H 88 93 H Pulse Rate [Apical] Pulse Rate from SpO2 Sensor Respiratory Rate 18 Respiratory Effort / Characteristics Non-Labored Spontaneous Respiratory Depth Normal Respiratory Pattern Regular Blood Pressure 121/81 Blood Pressure Mean 94 Blood Pressure Position Sitting Pulse Oximetry 94 94 Oxygen Delivery Method Room Air Room Air Sepsis Recent Fever Within 48 Hours No Sepsis New/Unexplained Change in Mental Status N/A Sepsis Action Taken by Nursing No Action Required 01/16/24 19:57 01/16/24 21:00 01/16/24 21:43 Temperature Temperature Source Pulse Rate 84 Pulse Rate [Apical] 87 86 Pulse Rate from SpO2 Sensor 84 Respiratory Rate 16 16 20 Respiratory Effort / Characteristics Respiratory Depth Respiratory Pattern Blood Pressure 144/86 H Blood Pressure Mean 105 Blood Pressure Position Pulse Oximetry 96 96 Oxygen Delivery Method Room Air Room Air Sepsis Recent Fever Within 48 Hours Sepsis New/Unexplained Change in Mental Status Sepsis Action Taken by Nursing 01/16/24 22:02 01/16/24 22:32 01/16/24 23:39 Temperature Temperature Source Pulse Rate 82 88 90 Pulse Rate [Apical] Pulse Rate from SpO2 Sensor 82 87 Respiratory Rate 15 22 Respiratory Effort / Characteristics Respiratory Depth Respiratory Pattern Blood Pressure 147/86 H Blood Pressure Mean 106 Blood Pressure Position Pulse Oximetry 95 94 Oxygen Delivery Method Room Air Room Air Sepsis Recent Fever Within 48 Hours Sepsis New/Unexplained Change in Mental Status Sepsis Action Taken by Nursing Laboratory Data 01/16/24 19:53 01/16/24 19:53 Lab Results 01/16/24 01/16/24 01/16/24 Range/Units 19:42 19:53 22:12 WBC 6.43 (4.8-10.8) K/ul RBC 4.75 (4.20-5.40) M/uL Hgb 14.2 (12.0-16.0) g/dl Hct 42.1 (37.0-47.0) % MCV 88.6 (80.0-100.0) fL MCH 29.9 (25.0-34.0) pg MCHC 33.7 (32.0-36.0) g/dL RDW Std Deviation 44.5 (36.4-46.3) fL RDW Coeff of Marielos 13.6 (11.5-14.5) % Plt Count 241 (130-400) K/uL MPV 11.0 (9.4-12.4) fL Immature Gran % (Auto) 0.2 % Neut % (Auto) 58.5 % Lymph % (Auto) 28.5 % Geary % (Auto) 12.0 % Eos % (Auto) 0.5 % Baso % (Auto) 0.3 % Neut # (Auto) 3.77 (1.40-6.50) K/uL Lymph # (Auto) 1.83 (1.20-3.40) K/uL Geary # (Auto) 0.77 H (0.11-0.59) K/uL Eos # (Auto) 0.03 (0.00-0.50) K/uL Baso # (Auto) 0.02 (0.00-0.20) K/uL Immature Gran # (Auto) 0.01 (0.01-0.20) K/uL PT 11.8 (9.0-12.0) Seconds INR 1.1 (0.9-1.1) Sodium 142 (136-145) mmol/L Potassium 3.0 L (3.5-5.1) mmol/L Chloride 102 (98-107) mmol/L Carbon Dioxide 31 (21-32) mmol/L Anion Gap 9 (3-11) BUN 14 (6-23) mg/dl Creatinine 2.08 H (0.6-1.2) mg/dl Est Cr Clr Drug Dosing 35.3 ml/min eGFR 25.80 BUN/Creatinine Ratio 6.7 L (10-20) Glucose 105 H (70-99(Fasting)) mg/dl Calcium 9.5 (8.6-10.3) mg/dl Magnesium 1.6 L (1.7-2.4) mg/dl Total Bilirubin 0.9 (0.2-1.0) mg/dl AST 20 (13-39) U/L ALT 14 (7-52) U/L Alkaline Phosphatase 60 (34-104) U/L Total Creatine Kinase 149 (26-192) U/L Troponin I High Sens 16.9 H (0-14) pg/ml Total Protein 6.9 (6.0-8.3) gm/dl Albumin 4.0 (3.4-5.0) gm/dl Globulin 2.9 (2.5-4.0) gm/dl Albumin/Globulin Ratio 1.4 (0.9-2) Lipase 33 (11-82) U/L Procalcitonin < 0.02 (0-0.5) ng/ml TSH 4.520 H (0.300-4.500) uIu/ml Free T4 0.92 (0.61-1.60) ng/dl Urine Color Yellow Urine Appearance Cloudy A (Clear) Urine pH 5.5 (4.5-7.5) Ur Specific [employer] 1.015 (1.000-1.030) Urine Protein Trace H (Negative) Urine Glucose (UA) Negative (Negative) Urine Ketones Trace H (Negative) Urine Blood Negative (Negative) Urine Nitrite Negative (Negative) Urine Bilirubin Negative (Negative) Urine Urobilinogen Negative (Negative) Ur Leukocyte Esterase 3+ H (Negative) Urine WBC (Auto) 21-50 H (0-5) /hpf Urine RBC (Auto) 3-5 H (0-2) /hpf U Hyaline Cast (Auto) >20 H (0-2) /lpf U Epithel Cells (Auto) 3-5 H (0-2) /hpf Urine Bacteria (Auto) None Seen (None Seen) Calcium Oxalate Crystal Present A (None Prsent) Hyaline Casts Present A (None Presnt) /lpf Adenovirus (PCR) Not Detected (NotDetected) B. pertussis DNA (PCR) Not Detected (NotDetected) B.parapertussis DNA PCR Not Detected (NotDetected) C. pneumoniae DNA (PCR) Not Detected (NotDetected) Coronavirus OC43 (PCR) Not Detected (NotDetected) Coronavirus HKU1 (PCR) Not Detected (NotDetected) Coronavirus 229E (PCR) Not Detected (NotDetected) SARS-CoV-2 (PCR) Not Detected (NotDetected) Coronavirus NL63 (PCR) Not Detected (NotDetected) Human Metapneumovir PCR Not Detected (NotDetected) Influenza Type A (PCR) Not Detected (NotDetected) Influenza Type B (PCR) Not Detected (NotDetected) M. pneumoniae (PCR) Not Detected (NotDetected) Parainfluenza 1 (PCR) Not Detected (NotDetected) Parainfluenza 2 (PCR) Not Detected (NotDetected) Parainfluenza 3 (PCR) Not Detected (NotDetected) Parainfluenza 4 (PCR) Not Detected (NotDetected) RSV (PCR) Not Detected (NotDetected) Entero/Rhino (PCR) Not Detected (NotDetected) Administered Medications Potassium Chloride 20 meq/ (Lactated Ringer's) 1,010 mls @ 75 mls/hr IV .[id number] STA Stop: 01/17/24 14:04 Last Admin: 01/17/24 01:58 Dose: 75 mls/hr Documented By: VICTOR HUGO Heparin Sodium/Dextrose (Heparin Sodium/Dextrose) 25,000 units in 500 mls @ 20 mls/hr IV .Q24H SHAWN; Protocol Stop: 02/16/24 02:14 Last Titration: 01/17/24 07:06 Dose: 1,000 units/hr, 20 mls/hr Documented By: VICTOR HUGO Co-signed By: MICHELE Admin: 01/17/24 02:28 Dose: 1,000 units/hr, 20 mls/hr Documented By: VICTOR HUGO Co-signed By: AUBRIE Lorazepam (Lorazepam 0.5 Mg Tab) 0.5 mg PO HS PRN PRN Reason: insomnia Stop: 02/16/24 00:28 Last Admin: 01/17/24 01:24 Dose: 0.5 mg Documented By: VICTOR HUGO Discontinued Medications Acetaminophen (Ofirmev) 1,000 mg in 100 mls @ 400 mls/hr IV NOW STA Stop: 01/16/24 22:00 Last Infusion: 01/16/24 22:37 Dose: Infused Documented By: Admin: 01/16/24 21:57 Dose: 400 mls/hr Documented By: AGATA Ceftriaxone Sodium (Rocephin) 2,000 mg in 50 mls @ 100 mls/hr IV NOW STA Stop: 01/16/24 23:46 Last Infusion: 01/17/24 02:47 Dose: Infused Documented By: VICTOR HUGO Admin: 01/17/24 02:16 Dose: 100 mls/hr Documented By: VICTOR HUGO Magnesium Sulfate/Dextrose (Magnesium Sulfate / D5w) 1 gm in 100 mls @ 50 mls/hr IV ONE STA Stop: 01/17/24 01:48 Last Infusion: 01/17/24 03:38 Dose: Infused Documented By: VICTOR HUGO Admin: 01/17/24 01:24 Dose: 50 mls/hr Documented By: VICTOR HUGO Potassium Chloride (Potassium Chloride Crtab 20 Meq Tabcr) 40 meq PO NOW STA Stop: 01/16/24 23:47 Last Admin: 01/17/24 00:30 Dose: 40 meq Documented By: AGATA Imaging Data Radiologist's Impression: Chest X-Ray 01/16/24 19:19 Exam(s): XR CXR 1 VIEW EXAM: XR Chest, 1 View CLINICAL HISTORY: Reason for exam: weakness. TECHNIQUE: Frontal view of the chest. COMPARISON: X-ray chest: 11/02/2020 FINDINGS: Lungs: Demonstrates prominent perihilar bronchovascular/interstitial markings in both lung de jesus. No consolidation. Pleural space: No pleural effusion. No pneumothorax. Heart: Mild cardiomegaly. Mediastinum: Atherosclerotic tortuosity of the thoracic aorta. Normal mediastinal contour. Bones/joints: Osteopenia. No obvious acute fracture. Degenerative changes of the spine and shoulders. IMPRESSION: Bilateral bronchial wall thickening and perihilar bronchovascular/increased interstitial markings. No consolidation or pleural effusion. . Electronically signed by: Jonathan Thao MD, DABR 01/16/24 21:06 PM Ankle X-Ray 01/16/24 19:37 Exam(s): XR RIGHT ANKLE, 3+ views EXAM: XR Right Ankle Complete, 3 or More Views CLINICAL HISTORY: Reason for exam: fall. TECHNIQUE: Frontal, lateral and oblique views of the right ankle. COMPARISON: None. FINDINGS: Bones/joints: Osseous demineralization. No acute left ankle fracture. No dislocation. Plantar calcaneal spur. Posterior calcaneal enthesophyte. Suspect fracture of the medial cortex of the navicular bone. Soft tissues: Soft tissue swelling of the ankle more medially/anteriorly. IMPRESSION: Suspect fracture of the medial cortex of the left navicular bone. Recommend clinical correlation. No acute left ankle fracture identified. Medially soft tissue edema/swelling of the left ankle. . Electronically signed by: Jonathan Thao MD, DABR 01/16/24 23:[address] 01/16/24 19:37 Exam(s): CT C SPINE EXAM: CT Cervical Spine Without Intravenous Contrast CLINICAL HISTORY: Reason for exam: falls, pain. TECHNIQUE: Axial computed tomography images of the cervical spine without intravenous contrast. CTDI is 29.22 mGy and DLP is 573 mGy-cm. Automated exposure control was utilized for the study. A dose lowering technique was utilized adhering to the principles of ALARA. COMPARISON: None. FINDINGS: Motion-induced image degradation. Vertebrae: Normal alignment of the spine. No malalignment. A C7 vertebral superior endplate mild compression deformity/ fracture of indeterminant age (series 603 image 48). No other cervical vertebral acute fracture identified. Discs/spinal canal/neural foramina: No acute findings. No spinal canal stenosis. Soft tissues: Unremarkable. Lung apices: Interstitial thickening/patchy parenchymal groundglass opacities. IMPRESSION: Demonstrates a C7 vertebral superior endplate mild compression deformity/fracture of indeterminant age. Recommend clinical correlation. Otherwise no acute osseous injury to the cervical spine identified. . Electronically signed by: Jonathan Thao MD, AMADOU 01/16/24 22:[address] 01/16/24 19:37 Exam(s): CT HEAD Without Contrast EXAM: CT Head Without Intravenous Contrast CLINICAL HISTORY: Reason for exam: falls, shaky. TECHNIQUE: Axial computed tomography images of the head/brain without intravenous contrast. CTDI is 65.68 mGy and DLP is 961.59 mGy-cm. Automated exposure control was utilized for the study. A dose lowering technique was utilized adhering to the principles of ALARA. COMPARISON: MRI brain: 10/21/2006 FINDINGS: Image diagnostic quality is reduced by motion and beam hardening artifacts. Brain: There is no acute intracranial hemorrhage, mass-effect or midline shift. Focal zone of decreased attenuation in the left basal ganglia, likely an old infarct. Ventricles: Age-related mild/moderate cerebral atrophy with widening of the extra-axial spaces/ventricular dilatation. Periventricular/subcortical areas of decreased attenuation, from likely chronic microvascular disease. Bones/joints: Unremarkable. No acute fracture. Soft tissues: Unremarkable. Sinuses: Unremarkable as visualized. No acute sinusitis. Mastoid air cells: Unremarkable as visualized. No mastoid effusion.. IMPRESSION: Limited exam No acute intracranial abnormality is evident . Electronically signed by: Jonathan Thao MD, AMADOU 01/16/24 22:45 PM Abdomen/Pelvis CT 01/16/24 20:34 Exam(s): CT ABDOMEN + PELVIS Without Contrast EXAM: CT Abdomen and Pelvis Without Intravenous Contrast CLINICAL HISTORY: Reason for exam: falls, low back pain, MADAN. TECHNIQUE: Axial computed tomography images of the abdomen and pelvis without intravenous contrast. CTDI is 33.6 mGy and DLP is 2248 mGy-cm. Automated exposure control was utilized for the study. A dose lowering technique was utilized adhering to the principles of ALARA. COMPARISON: None. FINDINGS: Lack of IV contrast limits evaluation of soft tissues/vascular structures. Lung bases: No mass. No consolidation. No pleural effusion. Proximal ascending aortic mild aneurysm: 42 mm. Calcified right coronary artery visualized. 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 ABDOMEN: Liver: A 1.9 cm ring calcified structure is seen in the dome of the right hepatic lobe, most likely benign (series 1000 image 44).. Gallbladder and bile ducts: Prior cholecystectomy. No ductal dilation. Pancreas: Pancreatic fatty infiltration , mild/moderate atrophy. No ductal dilation. Spleen: Unremarkable. No splenomegaly. Adrenals: Unremarkable. No mass. Kidneys and ureters: A 2.5 x 2.2 cm ring calcified exophytic structure is seen laterally from the mid right kidney (series 11 image 36, series 1000, image 65). No obstructing stones. No hydronephrosis. Stomach and bowel: A small hiatal hernia. Nonspecific mucosal/wall thickening of the cecum/ascending colon, this could be related to acute colitis versus incomplete distention (series 11 image 54, series 1000 image 52). No obstruction. PELVIS: Appendix: No findings to suggest acute appendicitis. Bladder: Unremarkable. No stones. Reproductive: Prior hysterectomy. ABDOMEN and PELVIS: Intraperitoneal space: No free air. No significant fluid collection. Bones/joints: No acute fracture. No dislocation. At T9-T10: Moderate degenerative spondylitic changes. Lower lumbosacral facet osteoarthropathy. Moderate bilateral hip osteoarthrosis. Soft tissues: Unremarkable. Vasculature: Mild/moderate infrarenal aortic atherosclerosis. No abdominal aortic aneurysm. Lymph nodes: No enlarged lymph nodes.. IMPRESSION: Nonspecific mucosal/wall thickening of the cecum/ascending colon, could be related to acute colitis versus incomplete distention. Recommend clinical correlation. A 2.5 x 2.2 cm ring calcified exophytic structure seen laterally a from the mid right kidney, likely a complex cyst. Renal ultrasound correlation is advised. . Electronically signed by: Jonathan Thao MD, DABR 01/17/24 00:[address] 01/16/24 20:34 Exam(s): CT CHEST Without Contrast EXAM: CT Chest Without Intravenous Contrast CLINICAL HISTORY: Reason for exam: falls, CP. TECHNIQUE: Axial computed tomography images of the chest without intravenous contrast. CTDI is 33.67 mGy and DLP is 2248 mGy-cm. Automated exposure control was utilized for the study. A dose lowering technique was utilized adhering to the principles of ALARA. COMPARISON: CTA chest 11/02/2020 FINDINGS: Lungs: No pulmonary contusion. Unchanged 5 mm pulmonary nodular in the periphery of the right upper lobe. Pleural space: No pleural effusion or pneumothorax. Heart: Unremarkable. Bones/joints: No acute fracture. Soft tissues: Unremarkable. Vasculature: Aneurysmal ascending thoracic aorta up to 4.7 cm. Lymph nodes: Unremarkable. IMPRESSION: 1. No acute abnormality. 2. Aneurysmal ascending thoracic aorta up to 4.7 cm. Electronically signed by: Gurjit Dickson MD 01/17/24 00:[address] 01/16/24 20:39 Exam(s): CT L SPINE EXAM: CT Lumbar Spine Without Intravenous Contrast CLINICAL HISTORY: Reason for exam: fall, pain. TECHNIQUE: Axial computed tomography images of the lumbar spine without intravenous contrast. CTDI is 29 mGy and DLP is 573 mGy-cm. Automated exposure control was utilized for the study. A dose lowering technique was utilized adhering to the principles of ALARA. COMPARISON: No relevant prior studies available. FINDINGS: Vertebrae: No acute fracture or malalignment. Soft tissues: Unremarkable. IMPRESSION: No acute findings in the lumbar spine. Electronically signed by: Gurjit Dickson MD 01/17/24 00:38 AM Foot X-Ray 01/16/24 23:06 Exam(s): XR LEFT FOOT EXAM: XR Left Foot Complete, 3 or More Views CLINICAL HISTORY: Reason for exam: pain ?frx. TECHNIQUE: Frontal, lateral and oblique views of the left foot. COMPARISON: No relevant prior studies available. FINDINGS: Bones/joints: No acute fracture or malalignment. Pes cavus. Calcaneal enthesophytes. Soft tissues: Unremarkable. IMPRESSION: No acute fracture or malalignment. Electronically signed by: Gurjit Dickson MD 01/17/24 00:47 AM Discharge Plan Visit Data Chief Complaint: Illness Stated Complaint: SHAKING, FLU SYMPTOMS, CHEST PAINS, DIARRHEA ED Provider: Kam Browne Discharge Problem: Weakness, Fall, Acute UTI, Foot pain, left, Confusion, Hypokalemia Patient Disposition: Admitted As Inpatient Discharge Instructions Interventions: ED Discharge Assessment Last Done: 01/17/24 00:25 Discharge Problem: Fall Qualifiers: Encounter type: initial encounter Qualified Code(s): W19.XXXA - Unspecified fall, initial encounter
[2024-01-16 20:17] LABS: Basophils # (auto) 0.02 K/uL (0.00-0.20); Basophils % (auto) 0.3 %; Eosinophils # (auto) 0.03 K/uL (0.00-0.50); Eosinophils % (auto) 0.5 %; Hematocrit (blood only) 42.1 % (37.0-47.0); Hemoglobin 14.2 g/dl (12.0-16.0); Immature Granulocytes # (auto) 0.01 K/uL (0.01-0.20); Immature Granulocytes % (auto) 0.2 %; Lymphocytes # (auto) 1.83 K/uL (1.20-3.40); Lymphocytes % (auto) 28.5 %; Mean Corpuscular Hemoglobin 29.9 pg (25.0-34.0); Mean Corpuscular Hgb Conc 33.7 g/dL (32.0-36.0); Mean Corpuscular Volume 88.6 fL (80.0-100.0); Monocytes # (auto) 0.77 K/uL (0.11-0.59); Neutrophils # (auto) 3.77 K/uL (1.40-6.50); Neutrophils % (auto) 58.5 %; Platelet Count 241 K/uL (130-400); RDW Coefficient of Variation 13.6 % (11.5-14.5); RDW Standard Deviation 44.5 fL (36.4-46.3); Red Blood Count 4.75 M/uL (4.20-5.40); White Blood Count 6.43 K/ul (4.8-10.8)
[2024-01-16 20:29] LABS: Albumin Globulin Ratio 1.4 (0.9-2); BUN Creatinine Ratio 6.7 (10-20); Bilirubin,Total 0.9 mg/dl (0.2-1.0); Calcium 9.5 mg/dl (8.6-10.3); Creatinine Clr Calc Pharmacy 35.3 ml/min; Globulin 2.9 gm/dl (2.5-4.0); Magnesium 1.6 mg/dl (1.7-2.4); Total Protein 6.9 gm/dl (6.0-8.3)
[2024-01-16 20:36] LABS: Troponin I High Sensitivity 16.9 pg/ml (0-14)
[2024-01-16 20:37] LABS: Adenovirus PCR Not Detected (NotDetected); Bordetella parapertussis PCR Not Detected (NotDetected); Bordetella pertussis PCR Not Detected (NotDetected); Chlamydia pneumoniae PCR Not Detected (NotDetected); Coronavirus 229E PCR Not Detected (NotDetected); Coronavirus CoV-2 (COVID19)PCR Not Detected (NotDetected); Coronavirus HKU1 PCR Not Detected (NotDetected); Coronavirus NL63 PCR Not Detected (NotDetected); Coronavirus OC43PCR Not Detected (NotDetected); Human Metapneumovirus PCR Not Detected (NotDetected); Influenza A PCR Not Detected (NotDetected); Influenza B PCR Not Detected (NotDetected); Mycoplasma pneumoniae PCR Not Detected (NotDetected); Parainfluenza Virus 1 PCR Not Detected (NotDetected); Parainfluenza Virus 2 PCR Not Detected (NotDetected); Parainfluenza Virus 3 PCR Not Detected (NotDetected); Parainfluenza Virus 4 PCR Not Detected (NotDetected); Respiratory Syncytial VirusPCR Not Detected (NotDetected); Rhinovirus/Enterovirus PCR Not Detected (NotDetected)
[2024-01-16 20:45] LABS: Thyroid Stimulating Hormone 4.52 uIu/ml (0.300-4.500)
[2024-01-16 20:54] LABS: INR 1.1 (0.9-1.1); Prothrombin Time 11.8 Seconds (9.0-12.0)
--- NOTE | 2024-01-16 21:06 | XRay Report ---
Exam(s): XR CXR 1 VIEW EXAM: XR Chest, 1 View CLINICAL HISTORY: Reason for exam: weakness. TECHNIQUE: Frontal view of the chest. COMPARISON: X-ray chest: 11/02/2020 FINDINGS: Lungs: Demonstrates prominent perihilar bronchovascular/interstitial markings in both lung de jesus. No consolidation. Pleural space: No pleural effusion. No pneumothorax. Heart: Mild cardiomegaly. Mediastinum: Atherosclerotic tortuosity of the thoracic aorta. Normal mediastinal contour. Bones/joints: Osteopenia. No obvious acute fracture. Degenerative changes of the spine and shoulders. IMPRESSION: Bilateral bronchial wall thickening and perihilar bronchovascular/increased interstitial markings. No consolidation or pleural effusion. . Electronically signed by: Jonathan Thao MD, SANDEEPR 01/16/24 21:06 PM
[2024-01-16 21:20] LABS: T4 Free Thyroxine 0.92 ng/dl (0.61-1.60)
[2024-01-16] MEDS: ACETAMINOPHEN 1,000 MG/100 ML VIAL IV STA (21:57)
--- NOTE | 2024-01-16 22:46 | CT Scan Report ---
Exam(s): CT HEAD Without Contrast EXAM: CT Head Without Intravenous Contrast CLINICAL HISTORY: Reason for exam: falls, shaky. TECHNIQUE: Axial computed tomography images of the head/brain without intravenous contrast. CTDI is 65.68 mGy and DLP is 961.59 mGy-cm. Automated exposure control was utilized for the study. A dose lowering technique was utilized adhering to the principles of ALARA. COMPARISON: MRI brain: 10/21/2006 FINDINGS: Image diagnostic quality is reduced by motion and beam hardening artifacts. Brain: There is no acute intracranial hemorrhage, mass-effect or midline shift. Focal zone of decreased attenuation in the left basal ganglia, likely an old infarct. Ventricles: Age-related mild/moderate cerebral atrophy with widening of the extra-axial spaces/ventricular dilatation. Periventricular/subcortical areas of decreased attenuation, from likely chronic microvascular disease. Bones/joints: Unremarkable. No acute fracture. Soft tissues: Unremarkable. Sinuses: Unremarkable as visualized. No acute sinusitis. Mastoid air cells: Unremarkable as visualized. No mastoid effusion.. IMPRESSION: Limited exam No acute intracranial abnormality is evident . Electronically signed by: Jonathan Thao MD, DABR 01/16/24 22:45 PM
--- NOTE | 2024-01-16 22:55 | CT Scan Report ---
Exam(s): CT C SPINE EXAM: CT Cervical Spine Without Intravenous Contrast CLINICAL HISTORY: Reason for exam: falls, pain. TECHNIQUE: Axial computed tomography images of the cervical spine without intravenous contrast. CTDI is 29.22 mGy and DLP is 573 mGy-cm. Automated exposure control was utilized for the study. A dose lowering technique was utilized adhering to the principles of ALARA. COMPARISON: None. FINDINGS: Motion-induced image degradation. Vertebrae: Normal alignment of the spine. No malalignment. A C7 vertebral superior endplate mild compression deformity/ fracture of indeterminant age (series 603 image 48). No other cervical vertebral acute fracture identified. Discs/spinal canal/neural foramina: No acute findings. No spinal canal stenosis. Soft tissues: Unremarkable. Lung apices: Interstitial thickening/patchy parenchymal groundglass opacities. IMPRESSION: Demonstrates a C7 vertebral superior endplate mild compression deformity/fracture of indeterminant age. Recommend clinical correlation. Otherwise no acute osseous injury to the cervical spine identified. . Electronically signed by: Jonathan Thao MD, SANDEEPR 01/16/24 22:54 PM
--- NOTE | 2024-01-16 23:01 | XRay Report ---
Exam(s): XR RIGHT ANKLE, 3+ views EXAM: XR Right Ankle Complete, 3 or More Views CLINICAL HISTORY: Reason for exam: fall. TECHNIQUE: Frontal, lateral and oblique views of the right ankle. COMPARISON: None. FINDINGS: Bones/joints: Osseous demineralization. No acute left ankle fracture. No dislocation. Plantar calcaneal spur. Posterior calcaneal enthesophyte. Suspect fracture of the medial cortex of the navicular bone. Soft tissues: Soft tissue swelling of the ankle more medially/anteriorly. IMPRESSION: Suspect fracture of the medial cortex of the left navicular bone. Recommend clinical correlation. No acute left ankle fracture identified. Medially soft tissue edema/swelling of the left ankle. . Electronically signed by: Jonathan Thao MD, SANDEEPR 01/16/24 23:01 PM
[2024-01-16 23:11] LABS: Appearance Urine Cloudy (Clear); Bacteria Urine Automated None Seen (None Seen); Bilirubin Urine Negative (Negative); Blood Urine Negative (Negative); Calcium Oxalate Crystals Urine Present (None Prsent); Cast Urine Automated >20 /lpf (0-2); Color Urine Yellow; Glucose Urine UA Negative (Negative); Hyaline Casts Urine Present /lpf (None Presnt); Ketones Urine Trace (Negative); Leukocyte Esterase Urine 3+ (Negative); Nitrite Urine Negative (Negative); Protein Urine Trace (Negative); Specific Gravity Urine 1.015 (1.000-1.030); Urobilinogen Urine Negative (Negative); WBC Urine Automated 21-50 /hpf (0-5); pH Urine 5.5 (4.5-7.5)
--- NOTE | 2024-01-16 23:53 | History & Physical Report ---
Date of Service January 16, 2024 Assessment & Plan (1) Atypical chest pain: Plan: Atypical chest pain with exertional SOB and troponin elevation Viral bronchitis, no sepsis for now rule out PE given abnormal D-dimer Complicated UTI Diarrhea secondary to viral illness, rule out C. difficile given recent antibiotic Rx chronic diastolic heart failure (EF 61%, TTE 2022), patient on the dry side ARF on CKD secondary to illness nonocclusive CAD/PVD hypertension, stable AMIRA on CPAP GERD, chest pain reminiscent of GERD attack as per patient anxiety/mood disorder/schizophrenia/fibromyalgia hypothyroidism, TSH slightly elevated prediabetes, hemoglobin A1c of 5.9 last June 2023 Right kidney cyst, incidental finding on CT Left navicular fracture Ambulatory dysfunction PCU Supportive management for viral bronchitis IV heparin until PE ruled out by VQ scan and LE venous Dopplers (CT angio precluded by abnormal kidney function) Follow troponin, TTE Urine CS, ceftriaxone Stool C. difficile Monitor creatinine response to IVF, hold home diuretic and losartan until creatinine back to baseline Orthopedics consult Re: Left navicular fracture Outpatient urology eval for right kidney cyst PT OT eval once medically stable DVT prophylaxis. IV heparin Full code Text document was generated using [employer] voice recognition software. It may contain grammatical or spelling errors. Kindly contact undersigned for clarification of any documentation item in question. History of Present Illness Chief Complaint: Shakiness, weakness, chest pain, SOB Primary Care Provider: Kennedy Brooks MD History obtained from patient and records. Medical history significant for chronic diastolic heart failure (EF 61%, TTE 2022), nonocclusive CAD, PVD, hypertension, CRI (baseline creatinine 1.7), AMIRA on CPAP, GERD, anxiety/mood disorder/schizophrenia/fibromyalgia, hypothyroidism, prediabetes. Last confinement November 2020 for COVID-19 pneumonia. Patient received flu and RSV vaccines at local pharmacy 2 weeks ago. A few days later she noted shakiness and upset stomach. Outpatient UA grew E. coli UTI. Patient completed Augmentin course. Symptoms later followed by cough symptoms productive of clear sputum, chest pain similar to heartburn, and SOB symptoms mostly on exertion. Watery loose stools.. Falling at home with resulting head trauma without LOC. Worsening of achy left foot pain which has been bothering her for a few months now. Increased generalized weakness. IV ceftriaxone administered at the ER for possible UTI. 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 Verified 11/02/20 02:11 Home Medications Medication Instructions Recorded Confirmed Type aspirin 81 mg tablet,delayed 81 mg PO DAILY 10/12/18 01/17/24 History release (Aspir-) atorvastatin 20 mg tablet 40 mg PO PM 10/12/18 11/02/20 History cholecalciferol (vitamin D3) 25 1,000 unit PO DAILY 10/12/18 01/17/24 History mcg (1,000 unit) capsule (Vitamin D3) diclofenac sodium 1 % topical gel 2 g topical QID PRN Pain 10/12/18 11/02/20 History (Voltaren) furosemide 20 mg tablet (Lasix) 20 mg PO DAILY 10/12/18 11/02/20 History levothyroxine 100 mcg tablet 100 mcg PO QAM 10/12/18 01/16/24 History (Synthroid) omeprazole 20 mg capsule,delayed 20 mg PO DAILY 10/12/18 11/02/20 History release gabapentin 300 mg capsule 400 mg PO BID 11/02/20 11/02/20 History venlafaxine 150 mg 150 mg PO DAILY 11/02/20 11/02/20 History capsule,extended release 24 hr venlafaxine 37.5 mg 37.5 mg PO DAILY 11/02/20 11/02/20 History capsule,extended release 24 hr amoxicillin 500 mg-potassium tab 01/16/24 History clavulanate 125 mg tablet bupropion HCl 100 mg tablet,12 hr 100 mg PO 01/16/24 History sustained-release calcium 200 mg (as tab 01/16/24 History citrate)-vitamin D3 6.25 mcg (250 unit) tablet (Citracal-D3 Petites) doxepin 25 mg capsule 25 mg PO HS 01/16/24 01/16/24 History levocetirizine 5 mg tablet 5 mg 01/16/24 History losartan 25 mg tablet mg 01/16/24 History multivitamin 01/16/24 History nystatin 1 million unit capsule 100,000 unit PO 01/16/24 History quetiapine 100 mg tablet 300 mg 01/16/24 History semaglutide (weight loss) 0.5 mg subcut 01/16/24 History mg/0.5 mL subcutaneous pen injector (Jenna) spironolactone 25 mg tablet 25 mg 01/16/24 History tizanidine 4 mg tablet 4 mg 01/16/24 History torsemide 20 mg tablet 20 mg 01/16/24 History triamcinolone acetonide 0.1 % applic topical 01/16/24 History topical cream Probiotic 01/17/24 History fluticasone furoate 100 inhalation 01/17/24 History mcg-vilanterol 25 mcg/dose inhalation powder fluticasone furoate 100 inhalation 01/17/24 History mcg-vilanterol 25 mcg/dose inhalation powder lifitegrast 5 % eye drops in a drp 01/17/24 History dropperette (Xiidra) polyethylene glycol ea miscellaneous 01/17/24 History Past Med/Surg History Problem List (Updated 01/17/24 @ 05:43 by Nhan Chiu MD) Atypical chest pain Chest pain Hypokalemia (Acute) Confusion (Acute) Foot pain, left (Acute) Acute UTI (Acute) Fall (Acute) Weakness (Acute) Hypoxia (Acute) Total body pain (Acute) Pneumonia due to COVID-19 virus (Acute) Medical History Carpal tunnel syndrome Depression Fibromyalgia Heart disease Hypertension Surgical History History of cholecystectomy History of hand surgery Social History Smoking Status: Never smoker Second Hand Exposure: No; Do You Dip or Chew Tobacco: No; Hx Alcohol Use: No Hx Substance Use: No Preferred Language: Persian Communication Ability: Effective Visual Impairment: No Limitations Hearing Ability: Normal 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 Beliefs That Will Affect Care: None Current Living Situation: Alone current occupational status: unemployed Feels Safe at Home: Yes Assistive Devices: Walker Review of Systems Review of Systems: As per HPI, all other systems reviewed and negative Physical Exam Physical Exam: GENERAL: Anxious, morbidly obese, pleasant, no respiratory distress SKIN: Normal color, warm HEENT: Luther palpebral conjunctivae, no ptosis, dry buccal mucosa NECK : Supple, short neck, no tenderness CHEST : Decreased breath sounds, no tenderness HEART : RRR, no obvious murmurs ABDOMEN: distention, minimal epigastric tenderness EXTREMITIES : LLE splint, no other conspicuous deformities noted NEUROLOGIC : Coherent, no facial asymmetry, gait and stance not assessed Results & Data Results & Data Vital Signs (Past 12 Hours) Vital Signs Temp Pulse Pulse Resp BP Pulse Ox O2 Del Method 01/16/24 23:39 90 01/16/24 22:32 88 22 94 Room Air 01/16/24 22:02 82 15 147/86 H 95 Room Air 01/16/24 21:43 86 20 96 Room Air 01/16/24 21:00 84 16 144/86 H 96 Room Air 01/16/24 19:57 87 16 01/16/24 19:42 93 H 01/16/24 19:41 88 94 Room Air 01/16/24 19:05 36.6 C 99 H 18 121/81 94 Room Air Laboratory Results Laboratory Results WBC 6.43 K/ul (4.8-10.8) 01/16/24 19:53 RBC 4.75 M/uL (4.20-5.40) 01/16/24 19:53 Hgb 14.2 g/dl (12.0-16.0) 01/16/24 19:53 Hct 42.1 % (37.0-47.0) 01/16/24 19:53 MCV 88.6 fL (80.0-100.0) 01/16/24 19:53 MCH 29.9 pg (25.0-34.0) 01/16/24 19:53 MCHC 33.7 g/dL (32.0-36.0) 01/16/24 19:53 RDW Std Deviation 44.5 fL (36.4-46.3) 01/16/24 19:53 RDW Coeff of Marielos 13.6 % (11.5-14.5) 01/16/24 19:53 Plt Count 241 K/uL (130-400) 01/16/24 19:53 MPV 11.0 fL (9.4-12.4) 01/16/24 19:53 Immature Gran % (Auto) 0.2 % 01/16/24 19:53 Neut % (Auto) 58.5 % 01/16/24 19:53 Lymph % (Auto) 28.5 % 01/16/24 19:53 Villalba % (Auto) 12.0 % 01/16/24 19:53 Eos % (Auto) 0.5 % 01/16/24 19:53 Baso % (Auto) 0.3 % 01/16/24 19:53 Neut # (Auto) 3.77 K/uL (1.40-6.50) 01/16/24 19:53 Lymph # (Auto) 1.83 K/uL (1.20-3.40) 01/16/24 19:53 Villalba # (Auto) 0.77 K/uL (0.11-0.59) H 01/16/24 19:53 Eos # (Auto) 0.03 K/uL (0.00-0.50) 01/16/24 19:53 Baso # (Auto) 0.02 K/uL (0.00-0.20) 01/16/24 19:53 Immature Gran # (Auto) 0.01 K/uL (0.01-0.20) 01/16/24 19:53 PT 11.8 Seconds (9.0-12.0) 01/16/24 19:53 INR 1.1 (0.9-1.1) 01/16/24 19:53 Sodium 142 mmol/L (136-145) 01/16/24 19:53 Potassium 3.0 mmol/L (3.5-5.1) L 01/16/24 19:53 Chloride 102 mmol/L (98-107) 01/16/24 19:53 Carbon Dioxide 31 mmol/L (21-32) 01/16/24 19:53 Anion Gap 9 (3-11) 01/16/24 19:53 BUN 14 mg/dl (6-23) 01/16/24 19:53 Creatinine 2.08 mg/dl (0.6-1.2) H 01/16/24 19:53 Est Cr Clr Drug Dosing 35.3 ml/min 01/16/24 19:53 eGFR 25.80 01/16/24 19:53 BUN/Creatinine Ratio 6.7 (10-20) L 01/16/24 19:53 Glucose 105 mg/dl (70-99(Fasting)) H 01/16/24 19:53 Calcium 9.5 mg/dl (8.6-10.3) 01/16/24 19:53 Magnesium 1.6 mg/dl (1.7-2.4) L 01/16/24 19:53 Total Bilirubin 0.9 mg/dl (0.2-1.0) 01/16/24 19:53 AST 20 U/L (13-39) 01/16/24 19:53 ALT 14 U/L (7-52) 01/16/24 19:53 Alkaline Phosphatase 60 U/L (34-104) 01/16/24 19:53 Total Creatine Kinase 149 U/L (26-192) 01/16/24 19:53 Troponin I High Sens 16.9 pg/ml (0-14) H 01/16/24 19:53 Total Protein 6.9 gm/dl (6.0-8.3) 01/16/24 19:53 Albumin 4.0 gm/dl (3.4-5.0) 01/16/24 19:53 Globulin 2.9 gm/dl (2.5-4.0) 01/16/24 19:53 Albumin/Globulin Ratio 1.4 (0.9-2) 01/16/24 19:53 Lipase 33 U/L (11-82) 01/16/24 19:53 Procalcitonin < 0.02 ng/ml (0-0.5) 01/16/24 19:53 TSH 4.520 uIu/ml (0.300-4.500) H 01/16/24 19:53 Free T4 0.92 ng/dl (0.61-1.60) 01/16/24 19:53 Urine Color Yellow 01/16/24 22:12 Urine Appearance Cloudy (Clear) A 01/16/24 22:12 Urine pH 5.5 (4.5-7.5) 01/16/24 22:12 Ur Specific Loring 1.015 (1.000-1.030) 01/16/24 22:12 Urine Protein Trace (Negative) H 01/16/24 22:12 Urine Glucose (UA) Negative (Negative) 01/16/24 22:12 Urine Ketones Trace (Negative) H 01/16/24 22:12 Urine Blood Negative (Negative) 01/16/24 22:12 Urine Nitrite Negative (Negative) 01/16/24 22:12 Urine Bilirubin Negative (Negative) 01/16/24 22:12 Urine Urobilinogen Negative (Negative) 01/16/24 22:12 Ur Leukocyte Esterase 3+ (Negative) H 01/16/24 22:12 Urine WBC (Auto) 21-50 /hpf (0-5) H 01/16/24 22:12 Urine RBC (Auto) 3-5 /hpf (0-2) H 01/16/24 22:12 U Hyaline Cast (Auto) >20 /lpf (0-2) H 01/16/24 22:12 U Epithel Cells (Auto) 3-5 /hpf (0-2) H 01/16/24 22:12 Urine Bacteria (Auto) None Seen (None Seen) 01/16/24 22:12 Calcium Oxalate Crystal Present (None Prsent) A 01/16/24 22:12 Hyaline Casts Present /lpf (None Presnt) A 01/16/24 22:12 Adenovirus (PCR) Not Detected (NotDetected) 01/16/24 19:42 B. pertussis DNA (PCR) Not Detected (NotDetected) 01/16/24 19:42 B.parapertussis DNA PCR Not Detected (NotDetected) 01/16/24 19:42 C. pneumoniae DNA (PCR) Not Detected (NotDetected) 01/16/24 19:42 Coronavirus OC43 (PCR) Not Detected (NotDetected) 01/16/24 19:42 Coronavirus HKU1 (PCR) Not Detected (NotDetected) 01/16/24 19:42 Coronavirus 229E (PCR) Not Detected (NotDetected) 01/16/24 19:42 SARS-CoV-2 (PCR) Not Detected (NotDetected) 01/16/24 19:42 Coronavirus NL63 (PCR) Not Detected (NotDetected) 01/16/24 19:42 Human Metapneumovir PCR Not Detected (NotDetected) 01/16/24 19:42 Influenza Type A (PCR) Not Detected (NotDetected) 01/16/24 19:42 Influenza Type B (PCR) Not Detected (NotDetected) 01/16/24 19:42 M. pneumoniae (PCR) Not Detected (NotDetected) 01/16/24 19:42 Parainfluenza 1 (PCR) Not Detected (NotDetected) 01/16/24 19:42 Parainfluenza 2 (PCR) Not Detected (NotDetected) 01/16/24 19:42 Parainfluenza 3 (PCR) Not Detected (NotDetected) 01/16/24 19:42 Parainfluenza 4 (PCR) Not Detected (NotDetected) 01/16/24 19:42 RSV (PCR) Not Detected (NotDetected) 01/16/24 19:42 Entero/Rhino (PCR) Not Detected (NotDetected) 01/16/24 19:42 Impressions Chest X-Ray 01/16/24 19:19 Exam(s): XR CXR 1 VIEW EXAM: XR Chest, 1 View CLINICAL HISTORY: Reason for exam: weakness. TECHNIQUE: Frontal view of the chest. COMPARISON: X-ray chest: 11/02/2020 FINDINGS: Lungs: Demonstrates prominent perihilar bronchovascular/interstitial markings in both lung de jesus. No consolidation. Pleural space: No pleural effusion. No pneumothorax. Heart: Mild cardiomegaly. Mediastinum: Atherosclerotic tortuosity of the thoracic aorta. Normal mediastinal contour. Bones/joints: Osteopenia. No obvious acute fracture. Degenerative changes of the spine and shoulders. IMPRESSION: Bilateral bronchial wall thickening and perihilar bronchovascular/increased interstitial markings. No consolidation or pleural effusion. . Electronically signed by: Jonathan Thao MD, DABR 01/16/24 21:06 PM Ankle X-Ray 01/16/24 19:37 Exam(s): XR LEFT ANKLE, 3+ views EXAM: XR Right Ankle Complete, 3 or More Views CLINICAL HISTORY: Reason for exam: fall. TECHNIQUE: Frontal, lateral and oblique views of the left ankle. COMPARISON: None. FINDINGS: Bones/joints: Osseous demineralization. No acute left ankle fracture. No dislocation. Plantar calcaneal spur. Posterior calcaneal enthesophyte. Suspect fracture of the medial cortex of the navicular bone. Soft tissues: Soft tissue swelling of the ankle more medially/anteriorly. IMPRESSION: Suspect fracture of the medial cortex of the left navicular bone. Recommend clinical correlation. No acute left ankle fracture identified. Medially soft tissue edema/swelling of the left ankle. . Electronically signed by: Jonathan Thao MD, DABR 01/16/24 23:[address] 01/16/24 19:37 Exam(s): CT C SPINE EXAM: CT Cervical Spine Without Intravenous Contrast CLINICAL HISTORY: Reason for exam: falls, pain. TECHNIQUE: Axial computed tomography images of the cervical spine without intravenous contrast. CTDI is 29.22 mGy and DLP is 573 mGy-cm. Automated exposure control was utilized for the study. A dose lowering technique was utilized adhering to the principles of ALARA. COMPARISON: None. FINDINGS: Motion-induced image degradation. Vertebrae: Normal alignment of the spine. No malalignment. A C7 vertebral superior endplate mild compression deformity/ fracture of indeterminant age (series 603 image 48). No other cervical vertebral acute fracture identified. Discs/spinal canal/neural foramina: No acute findings. No spinal canal stenosis. Soft tissues: Unremarkable. Lung apices: Interstitial thickening/patchy parenchymal groundglass opacities. IMPRESSION: Demonstrates a C7 vertebral superior endplate mild compression deformity/fracture of indeterminant age. Recommend clinical correlation. Otherwise no acute osseous injury to the cervical spine identified. . Electronically signed by: Jonathan Thao MD, DABR 01/16/24 22:[address] 01/16/24 19:37 Exam(s): CT HEAD Without Contrast EXAM: CT Head Without Intravenous Contrast CLINICAL HISTORY: Reason for exam: falls, shaky. TECHNIQUE: Axial computed tomography images of the head/brain without intravenous contrast. CTDI is 65.68 mGy and DLP is 961.59 mGy-cm. Automated exposure control was utilized for the study. A dose lowering technique was utilized adhering to the principles of ALARA. COMPARISON: MRI brain: 10/21/2006 FINDINGS: Image diagnostic quality is reduced by motion and beam hardening artifacts. Brain: There is no acute intracranial hemorrhage, mass-effect or midline shift. Focal zone of decreased attenuation in the left basal ganglia, likely an old infarct. Ventricles: Age-related mild/moderate cerebral atrophy with widening of the extra-axial spaces/ventricular dilatation. Periventricular/subcortical areas of decreased attenuation, from likely chronic microvascular disease. Bones/joints: Unremarkable. No acute fracture. Soft tissues: Unremarkable. Sinuses: Unremarkable as visualized. No acute sinusitis. Mastoid air cells: Unremarkable as visualized. No mastoid effusion.. IMPRESSION: Limited exam No acute intracranial abnormality is evident . Electronically signed by: Jonathan Thao MD, DABR 01/16/24 22:45 PM Diagnostic Findings EKG as per my interpretation : Rate 90, NSR, LAD, LAFB, T wave abnormality septal leads
--- NOTE | 2024-01-17 00:21 | CT Scan Report ---
Exam(s): CT ABDOMEN + PELVIS Without Contrast EXAM: CT Abdomen and Pelvis Without Intravenous Contrast CLINICAL HISTORY: Reason for exam: falls, low back pain, MADAN. TECHNIQUE: Axial computed tomography images of the abdomen and pelvis without intravenous contrast. CTDI is 33.6 mGy and DLP is 2248 mGy-cm. Automated exposure control was utilized for the study. A dose lowering technique was utilized adhering to the principles of ALARA. COMPARISON: None. FINDINGS: Lack of IV contrast limits evaluation of soft tissues/vascular structures. Lung bases: No mass. No consolidation. No pleural effusion. Proximal ascending aortic mild aneurysm: 42 mm. Calcified right coronary artery visualized. 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 ABDOMEN: Liver: A 1.9 cm ring calcified structure is seen in the dome of the right hepatic lobe, most likely benign (series 1000 image 44).. Gallbladder and bile ducts: Prior cholecystectomy. No ductal dilation. Pancreas: Pancreatic fatty infiltration , mild/moderate atrophy. No ductal dilation. Spleen: Unremarkable. No splenomegaly. Adrenals: Unremarkable. No mass. Kidneys and ureters: A 2.5 x 2.2 cm ring calcified exophytic structure is seen laterally from the mid right kidney (series 11 image 36, series 1000, image 65). No obstructing stones. No hydronephrosis. Stomach and bowel: A small hiatal hernia. Nonspecific mucosal/wall thickening of the cecum/ascending colon, this could be related to acute colitis versus incomplete distention (series 11 image 54, series 1000 image 52). No obstruction. PELVIS: Appendix: No findings to suggest acute appendicitis. Bladder: Unremarkable. No stones. Reproductive: Prior hysterectomy. ABDOMEN and PELVIS: Intraperitoneal space: No free air. No significant fluid collection. Bones/joints: No acute fracture. No dislocation. At T9-T10: Moderate degenerative spondylitic changes. Lower lumbosacral facet osteoarthropathy. Moderate bilateral hip osteoarthrosis. Soft tissues: Unremarkable. Vasculature: Mild/moderate infrarenal aortic atherosclerosis. No abdominal aortic aneurysm. Lymph nodes: No enlarged lymph nodes.. IMPRESSION: Nonspecific mucosal/wall thickening of the cecum/ascending colon, could be related to acute colitis versus incomplete distention. Recommend clinical correlation. A 2.5 x 2.2 cm ring calcified exophytic structure seen laterally a from the mid right kidney, likely a complex cyst. Renal ultrasound correlation is advised. . Electronically signed by: Jonathan Thao MD, DABR 01/17/24 00:19 AM
[2024-01-17] MEDS ORDERED: PROMETHAZINE 12.5 MG/50.5 ML BAG IV PRN (00:29)
[2024-01-17] MEDS: POTASSIUM CHLORIDE CRTAB 20 MEQ TABCR PO STA ×2 (00:30→13:32)
--- NOTE | 2024-01-17 00:36 | CT Scan Report ---
Exam(s): CT CHEST Without Contrast EXAM: CT Chest Without Intravenous Contrast CLINICAL HISTORY: Reason for exam: falls, CP. TECHNIQUE: Axial computed tomography images of the chest without intravenous contrast. CTDI is 33.67 mGy and DLP is 2248 mGy-cm. Automated exposure control was utilized for the study. A dose lowering technique was utilized adhering to the principles of ALARA. COMPARISON: CTA chest 11/02/2020 FINDINGS: Lungs: No pulmonary contusion. Unchanged 5 mm pulmonary nodular in the periphery of the right upper lobe. Pleural space: No pleural effusion or pneumothorax. Heart: Unremarkable. Bones/joints: No acute fracture. Soft tissues: Unremarkable. Vasculature: Aneurysmal ascending thoracic aorta up to 4.7 cm. Lymph nodes: Unremarkable. IMPRESSION: 1. No acute abnormality. 2. Aneurysmal ascending thoracic aorta up to 4.7 cm. Electronically signed by: Gurjit Dickson MD 01/17/24 00:35 AM
--- NOTE | 2024-01-17 00:40 | CT Scan Report ---
Exam(s): CT L SPINE EXAM: CT Lumbar Spine Without Intravenous Contrast CLINICAL HISTORY: Reason for exam: fall, pain. TECHNIQUE: Axial computed tomography images of the lumbar spine without intravenous contrast. CTDI is 29 mGy and DLP is 573 mGy-cm. Automated exposure control was utilized for the study. A dose lowering technique was utilized adhering to the principles of ALARA. COMPARISON: No relevant prior studies available. FINDINGS: Vertebrae: No acute fracture or malalignment. Soft tissues: Unremarkable. IMPRESSION: No acute findings in the lumbar spine. Electronically signed by: Gurjit Dickson MD 01/17/24 00:38 AM
--- NOTE | 2024-01-17 00:48 | XRay Report ---
Exam(s): XR LEFT FOOT EXAM: XR Left Foot Complete, 3 or More Views CLINICAL HISTORY: Reason for exam: pain ?frx. TECHNIQUE: Frontal, lateral and oblique views of the left foot. COMPARISON: No relevant prior studies available. FINDINGS: Bones/joints: No acute fracture or malalignment. Pes cavus. Calcaneal enthesophytes. Soft tissues: Unremarkable. IMPRESSION: No acute fracture or malalignment. Electronically signed by: Gurjit Dickson MD 01/17/24 00:47 AM
[2024-01-17] MEDS: MAGNESIUM SULFATE / D5W 1 GM/100 ML BAG IV STA (01:24)
[2024-01-17] MEDS: LORazepam 0.5 MG TAB PO PRN (01:24)
[2024-01-17 01:52] LABS: D Dimer 650 ug/L FEU (0-500)
[2024-01-17] MEDS ORDERED: Heparin IV Adult Wt-Based Low-Dose *NO* INITIAL Bolus Protocol IV STA (01:55)
[2024-01-17] MEDS: POTASSIUM CHLORIDE 20 MEQ in LACTATED RINGER'S 1,000 ML IV STA (01:58)
[2024-01-17] MEDS: cefTRIAXone SODIUM 2,000 MG/50 ML BAG IV STA (02:16)
[2024-01-17] MEDS: HEPARIN SODIUM/DEXTROSE 25,000 UNITS/500 ML BAG IV SCH (02:28)
[2024-01-17 02:40] LABS: Partial Thromboplastin Ratio 0.9; Partial Thromboplastin Time 23 Seconds (21-31)
--- NOTE | 2024-01-17 05:11 | Ultrasound Report ---
EXAM: US venous doppler LE BI CLINICAL HISTORY: HX: NO PREV. ELEVATED D DIMER. EXAM LIMITED BY INCREASED BODY HABITUS, BMI 42. TECH NOTES: NO OBVIOUS DVT BILAT LOWER EXT. TECHNIQUE: Ultrasound examination of bilateral lower extremity veins was performed in real time and duplex. One or more of the following were performed- spectral analysis, resistive index, waveform analysis, and pulsed Doppler. COMPARISON: None. FINDINGS: Normal phasic, non-pulsatile and spontaneous flow is noted in bilateral GSV, common femoral, superficial femoral, popliteal and posterior tibial, anterior tibial and peroneal veins. Visualized veins of both lower extremities demonstrate normal compressibility. No sonographic evidence of acute deep vein thrombosis (DVT) is detected in the visualized veins of both lower extremities. Compression and Augmentation: All evaluated veins compress fully with applied transducer pressure. Augmentation of venous flow is noted with distal compression. Additional Findings: No evidence of intraluminal thrombus. IMPRESSION: No sonographic evidence of acute DVT detected in bilateral lower extremity veins, at the time of examination. Disclaimer: DVT could be missed early in the disease when clot burden is minimal. For patients with moderate and high pretest probability of DVT and negative ultrasound, the [employer] clinical guidelines recommend testing with a D-dimer assay or repeat ultrasound in 5-7 days. If symptoms worsen, the Society of radiologists in ultrasound recommends repeating ultrasound even earlier. Electronically signed by Bob Adams 01-17-2024 05:11 AM
[2024-01-17 08:59] LABS: Basophils # (auto) 0.03 K/uL (0.00-0.20); Basophils % (auto) 0.5 %; Eosinophils % (auto) 1.7 %; Hematocrit (blood only) 36.9 % (37.0-47.0); Hemoglobin 12.6 g/dl (12.0-16.0); Immature Granulocytes # (auto) 0.06 K/uL (0.01-0.20); Lymphocytes # (auto) 2.08 K/uL (1.20-3.40); Lymphocytes % (auto) 34.8 %; Mean Corpuscular Hemoglobin 30.1 pg (25.0-34.0); Mean Corpuscular Hgb Conc 34.1 g/dL (32.0-36.0); Mean Corpuscular Volume 88.3 fL (80.0-100.0); Mean Platelet Volume 11.4 fL (9.4-12.4); Monocytes # (auto) 0.71 K/uL (0.11-0.59); Monocytes % (auto) 11.9 %; Neutrophils # (auto) 2.99 K/uL (1.40-6.50); Neutrophils % (auto) 50.1 %; Platelet Count 212 K/uL (130-400); RDW Coefficient of Variation 13.7 % (11.5-14.5); RDW Standard Deviation 44.7 fL (36.4-46.3); Red Blood Count 4.18 M/uL (4.20-5.40); White Blood Count 5.97 K/ul (4.8-10.8)
[2024-01-17 09:05] LABS: BUN Creatinine Ratio 8.5 (10-20); Calcium 8.9 mg/dl (8.6-10.3); Creatinine Clr Calc Pharmacy 41.3 ml/min; Magnesium 1.8 mg/dl (1.7-2.4); Potassium 2.9 mmol/L (3.5-5.1)
[2024-01-17 09:18] LABS: ANTI-Xa, UFH(UnfractionatedHep 0.22 IU/ml (0.3-0.7)
--- NOTE | 2024-01-17 09:18 | Orthopedic Consultation ---
Date of Consultation January 17, 2024 Assessment & Plan (1) Foot pain, left: IMPRESSION: Left foot pain secondarily to Accessary Navicular versus sprain Acute vs Acute on chronic Goals: Decrease pain PLAN: RICE. Continue pain control. Will obtain a high tide cam boot, wear net solutions architect except for bathing, icing, and rehab. PT/OT WBAT in the boot Continue care per primary service History of Present Illness Reason for Consultation: Left foot pain Requesting Physician: Soledad Stroud MD Attending Physician: Kathryn Mayen MD History of Present Illness 68 yo female Allergies Allergy/AdvReac Type Severity Reaction Status Date / Time paroxetine AdvReac Unknown Dizziness. Verified 11/02/20 02:11 Home Medications Medication Instructions Recorded Confirmed Type aspirin 81 mg tablet,delayed 81 mg PO DAILY 10/12/18 01/17/24 History release (Aspir-) atorvastatin 20 mg tablet 40 mg PO PM 10/12/18 11/02/20 History cholecalciferol (vitamin D3) 25 1,000 unit PO DAILY 10/12/18 01/17/24 History mcg (1,000 unit) capsule (Vitamin D3) diclofenac sodium 1 % topical gel 2 g topical QID PRN Pain 10/12/18 11/02/20 History (Voltaren) furosemide 20 mg tablet (Lasix) 20 mg PO DAILY 10/12/18 11/02/20 History levothyroxine 100 mcg tablet 100 mcg PO QAM 10/12/18 01/16/24 History (Synthroid) omeprazole 20 mg capsule,delayed 20 mg PO DAILY 10/12/18 11/02/20 History release gabapentin 300 mg capsule 400 mg PO BID 11/02/20 11/02/20 History venlafaxine 150 mg 150 mg PO DAILY 11/02/20 11/02/20 History capsule,extended release 24 hr venlafaxine 37.5 mg 37.5 mg PO DAILY 11/02/20 11/02/20 History capsule,extended release 24 hr amoxicillin 500 mg-potassium tab 01/16/24 History clavulanate 125 mg tablet bupropion HCl 100 mg tablet,12 hr 100 mg PO 01/16/24 History sustained-release calcium 200 mg (as tab 01/16/24 History citrate)-vitamin D3 6.25 mcg (250 unit) tablet (Citracal-D3 Petites) doxepin 25 mg capsule 25 mg PO HS 01/16/24 01/16/24 History levocetirizine 5 mg tablet 5 mg 01/16/24 History losartan 25 mg tablet mg 01/16/24 History multivitamin 01/16/24 History nystatin 1 million unit capsule 100,000 unit PO 01/16/24 History quetiapine 100 mg tablet 300 mg 01/16/24 History semaglutide (weight loss) 0.5 mg subcut 01/16/24 History mg/0.5 mL subcutaneous pen injector (Wegovy) spironolactone 25 mg tablet 25 mg 01/16/24 History tizanidine 4 mg tablet 4 mg 01/16/24 History torsemide 20 mg tablet 20 mg 01/16/24 History triamcinolone acetonide 0.1 % applic topical 01/16/24 History topical cream Probiotic 01/17/24 History fluticasone furoate 100 inhalation 01/17/24 History mcg-vilanterol 25 mcg/dose inhalation powder fluticasone furoate 100 inhalation 01/17/24 History mcg-vilanterol 25 mcg/dose inhalation powder lifitegrast 5 % eye drops in a drp 01/17/24 History dropperette (Xiidra) polyethylene glycol ea miscellaneous 01/17/24 History Patient History Medical History Carpal tunnel syndrome Depression Fibromyalgia Heart disease Hypertension Surgical History History of cholecystectomy History of hand surgery Social History Smoking Status: Never smoker Second Hand Exposure: No; Do You Dip or Chew Tobacco: No; Hx Alcohol Use: No Hx Substance Use: No Preferred Language: Albanian Communication Ability: Effective Visual Impairment: No Limitations Hearing Ability: Normal Glassware Selector Required: No Beliefs That Will Affect Care: None Current Living Situation: Alone current occupational status: unemployed Feels Safe at Home: Yes Assistive Devices: CPAP and Oxygen - at Night Review of Systems Review of Systems: All systems reviewed & are unremarkable except as noted in HPI & below Physical Exam Physical Exam: LLE: Sensation to light touch unchanged. BCR < 2 sec. Able to wiggle toes and ankle. + tenderness to palpation over the Navicular and posterior Tib tendon. - Forefoot squeeze test. + Calf squeeze test. Stable anterior drawer. Results & Data Vital Signs (Past 12 Hours) Vital Signs Temp Pulse Pulse Resp BP BP Pulse Ox 01/17/24 07:38 36.2 C L 73 16 132/72 95 01/17/24 07:17 74 01/17/24 02:45 36.7 C 76 18 112/68 94 01/17/24 01:10 82 01/17/24 01:08 01/17/24 01:08 01/17/24 00:59 36.6 C 82 18 151/85 H 96 01/17/24 00:02 85 14 133/80 94 01/16/24 23:39 90 01/16/24 22:32 88 22 94 01/16/24 22:02 82 15 147/86 H 95 01/16/24 21:43 86 20 96 O2 Del Method O2 Del Method 01/17/24 07:38 Room Air 01/17/24 07:17 01/17/24 02:45 Room Air 01/17/24 01:10 01/17/24 01:08 Room Air 01/17/24 01:08 Room Air 01/17/24 00:59 Room Air 01/17/24 00:02 Room Air 01/16/24 23:39 01/16/24 22:32 Room Air 01/16/24 22:02 Room Air 01/16/24 21:43 Room Air Laboratory Results Laboratory Results WBC 5.97 K/ul (4.8-10.8) 01/17/24 08:31 RBC 4.18 M/uL (4.20-5.40) L 01/17/24 08:31 Hgb 12.6 g/dl (12.0-16.0) 01/17/24 08:31 Hct 36.9 % (37.0-47.0) L 01/17/24 08:31 MCV 88.3 fL (80.0-100.0) 01/17/24 08:31 MCH 30.1 pg (25.0-34.0) 01/17/24 08:31 MCHC 34.1 g/dL (32.0-36.0) 01/17/24 08:31 RDW Std Deviation 44.7 fL (36.4-46.3) 01/17/24 08:31 RDW Coeff of Marielos 13.7 % (11.5-14.5) 01/17/24 08:31 Plt Count 212 K/uL (130-400) 01/17/24 08:31 MPV 11.4 fL (9.4-12.4) 01/17/24 08:31 Immature Gran % (Auto) 1.0 % 01/17/24 08:31 Neut % (Auto) 50.1 % 01/17/24 08:31 Lymph % (Auto) 34.8 % 01/17/24 08:31 [place] % (Auto) 11.9 % 01/17/24 08:31 Eos % (Auto) 1.7 % 01/17/24 08:31 Baso % (Auto) 0.5 % 01/17/24 08:31 Neut # (Auto) 2.99 K/uL (1.40-6.50) 01/17/24 08:31 Lymph # (Auto) 2.08 K/uL (1.20-3.40) 01/17/24 08:31 [place] # (Auto) 0.71 K/uL (0.11-0.59) H 01/17/24 08:31 Eos # (Auto) 0.10 K/uL (0.00-0.50) 01/17/24 08:31 Baso # (Auto) 0.03 K/uL (0.00-0.20) 01/17/24 08:31 Immature Gran # (Auto) 0.06 K/uL (0.01-0.20) 01/17/24 08:31 PT 11.8 Seconds (9.0-12.0) 01/16/24 19:53 INR 1.1 (0.9-1.1) 01/16/24 19:53 APTT 23 Seconds (21-31) 01/17/24 01:01 PTT Ratio 0.9 01/17/24 01:01 D-Dimer 650 ug/L FEU (0-500) H* 01/17/24 01:01 Sodium 142 mmol/L (136-145) 01/17/24 08:31 Potassium 2.9 mmol/L (3.5-5.1) L 01/17/24 08:31 Chloride 105 mmol/L (98-107) 01/17/24 08:31 Carbon Dioxide 29 mmol/L (21-32) 01/17/24 08:31 Anion Gap 8 (3-11) 01/17/24 08:31 BUN 15 mg/dl (6-23) 01/17/24 08:31 Creatinine 1.77 mg/dl (0.6-1.2) H D 01/17/24 08:31 Est Cr Clr Drug Dosing 41.3 ml/min 01/17/24 08:31 eGFR 31.32 01/17/24 08:31 BUN/Creatinine Ratio 8.5 (10-20) L 01/17/24 08:31 Glucose 106 mg/dl (70-99(Fasting)) H 01/17/24 08:31 Calcium 8.9 mg/dl (8.6-10.3) 01/17/24 08:31 Magnesium 1.8 mg/dl (1.7-2.4) 01/17/24 08:31 Total Bilirubin 0.9 mg/dl (0.2-1.0) 01/16/24 19:53 AST 20 U/L (13-39) 01/16/24 19:53 ALT 14 U/L (7-52) 01/16/24 19:53 Alkaline Phosphatase 60 U/L (34-104) 01/16/24 19:53 Total Creatine Kinase 149 U/L (26-192) 01/16/24 19:53 Troponin I High Sens 16.1 pg/ml (0-14) H 01/17/24 08:31 Total Protein 6.9 gm/dl (6.0-8.3) 01/16/24 19:53 Albumin 4.0 gm/dl (3.4-5.0) 01/16/24 19:53 Globulin 2.9 gm/dl (2.5-4.0) 01/16/24 19:53 Albumin/Globulin Ratio 1.4 (0.9-2) 01/16/24 19:53 Lipase 33 U/L (11-82) 01/16/24 19:53 Procalcitonin < 0.02 ng/ml (0-0.5) 01/16/24 19:53 TSH 4.520 uIu/ml (0.300-4.500) H 01/16/24 19:53 Free T4 0.92 ng/dl (0.61-1.60) 01/16/24 19:53 Urine Color Yellow 01/16/24 22:12 Urine Appearance Cloudy (Clear) A 01/16/24 22:12 Urine pH 5.5 (4.5-7.5) 01/16/24 22:12 Ur Specific Reliance 1.015 (1.000-1.030) 01/16/24 22:12 Urine Protein Trace (Negative) H 01/16/24 22:12 Urine Glucose (UA) Negative (Negative) 01/16/24 22:12 Urine Ketones Trace (Negative) H 01/16/24 22:12 Urine Blood Negative (Negative) 01/16/24 22:12 Urine Nitrite Negative (Negative) 01/16/24 22:12 Urine Bilirubin Negative (Negative) 01/16/24 22:12 Urine Urobilinogen Negative (Negative) 01/16/24 22:12 Ur Leukocyte Esterase 3+ (Negative) H 01/16/24 22:12 Urine WBC (Auto) 21-50 /hpf (0-5) H 01/16/24 22:12 Urine RBC (Auto) 3-5 /hpf (0-2) H 01/16/24 22:12 U Hyaline Cast (Auto) >20 /lpf (0-2) H 01/16/24 22:12 U Epithel Cells (Auto) 3-5 /hpf (0-2) H 01/16/24 22:12 Urine Bacteria (Auto) None Seen (None Seen) 01/16/24 22:12 Calcium Oxalate Crystal Present (None Prsent) A 01/16/24 22:12 Hyaline Casts Present /lpf (None Presnt) A 01/16/24 22:12 Adenovirus (PCR) Not Detected (NotDetected) 01/16/24 19:42 B. pertussis DNA (PCR) Not Detected (NotDetected) 01/16/24 19:42 B.parapertussis DNA PCR Not Detected (NotDetected) 01/16/24 19:42 C. pneumoniae DNA (PCR) Not Detected (NotDetected) 01/16/24 19:42 Coronavirus OC43 (PCR) Not Detected (NotDetected) 01/16/24 19:42 Coronavirus HKU1 (PCR) Not Detected (NotDetected) 01/16/24 19:42 Coronavirus 229E (PCR) Not Detected (NotDetected) 01/16/24 19:42 SARS-CoV-2 (PCR) Not Detected (NotDetected) 01/16/24 19:42 Coronavirus NL63 (PCR) Not Detected (NotDetected) 01/16/24 19:42 Human Metapneumovir PCR Not Detected (NotDetected) 01/16/24 19:42 Influenza Type A (PCR) Not Detected (NotDetected) 01/16/24 19:42 Influenza Type B (PCR) Not Detected (NotDetected) 01/16/24 19:42 M. pneumoniae (PCR) Not Detected (NotDetected) 01/16/24 19:42 Parainfluenza 1 (PCR) Not Detected (NotDetected) 01/16/24 19:42 Parainfluenza 2 (PCR) Not Detected (NotDetected) 01/16/24 19:42 Parainfluenza 3 (PCR) Not Detected (NotDetected) 01/16/24 19:42 Parainfluenza 4 (PCR) Not Detected (NotDetected) 01/16/24 19:42 RSV (PCR) Not Detected (NotDetected) 01/16/24 19:42 Entero/Rhino (PCR) Not Detected (NotDetected) 01/16/24 19:42 Impressions Chest X-Ray 01/16/24 19:19 Exam(s): XR CXR 1 VIEW EXAM: XR Chest, 1 View CLINICAL HISTORY: Reason for exam: weakness. TECHNIQUE: Frontal view of the chest. COMPARISON: X-ray chest: 11/02/2020 FINDINGS: Lungs: Demonstrates prominent perihilar bronchovascular/interstitial markings in both lung de jesus. No consolidation. Pleural space: No pleural effusion. No pneumothorax. Heart: Mild cardiomegaly. Mediastinum: Atherosclerotic tortuosity of the thoracic aorta. Normal mediastinal contour. Bones/joints: Osteopenia. No obvious acute fracture. Degenerative changes of the spine and shoulders. IMPRESSION: Bilateral bronchial wall thickening and perihilar bronchovascular/increased interstitial markings. No consolidation or pleural effusion. Electronically signed by: Jonathan Thao MD, DABR 01/16/24 21:06 PM Ankle X-Ray 01/16/24 19:37 Exam(s): XR RIGHT ANKLE, 3+ views EXAM: XR Right Ankle Complete, 3 or More Views CLINICAL HISTORY: Reason for exam: fall. TECHNIQUE: Frontal, lateral and oblique views of the right ankle. COMPARISON: None. FINDINGS: Bones/joints: Osseous demineralization. No acute left ankle fracture. No dislocation. Plantar calcaneal spur. Posterior calcaneal enthesophyte. Suspect fracture of the medial cortex of the navicular bone. Soft tissues: Soft tissue swelling of the ankle more medially/anteriorly. IMPRESSION: Suspect fracture of the medial cortex of the left navicular bone. Recommend clinical correlation. No acute left ankle fracture identified. Medially soft tissue edema/swelling of the left ankle. Electronically signed by: Jonathan Thao MD, DABR 01/16/24 23:01 PM Agree with above findings, except the medial cortex concern is an Accessory Navicular Cervical Spine CT 01/16/24 19:37 Exam(s): CT C SPINE EXAM: CT Cervical Spine Without Intravenous Contrast CLINICAL HISTORY: Reason for exam: falls, pain. TECHNIQUE: Axial computed tomography images of the cervical spine without intravenous contrast. CTDI is 29.22 mGy and DLP is 573 mGy-cm. Automated exposure control was utilized for the study. A dose lowering technique was utilized adhering to the principles of ALARA. COMPARISON: None. FINDINGS: Motion-induced image degradation. Vertebrae: Normal alignment of the spine. No malalignment. A C7 vertebral superior endplate mild compression deformity/ fracture of indeterminant age (series 603 image 48). No other cervical vertebral acute fracture identified. Discs/spinal canal/neural foramina: No acute findings. No spinal canal stenosis. Soft tissues: Unremarkable. Lung apices: Interstitial thickening/patchy parenchymal groundglass opacities. IMPRESSION: Demonstrates a C7 vertebral superior endplate mild compression deformity/fracture of indeterminant age. Recommend clinical correlation. Otherwise no acute osseous injury to the cervical spine identified. Electronically signed by: Jonathan Thao MD, DABR 01/16/24 22:[address] 01/16/24 19:37 Exam(s): CT HEAD Without Contrast EXAM: CT Head Without Intravenous Contrast CLINICAL HISTORY: Reason for exam: falls, shaky. TECHNIQUE: Axial computed tomography images of the head/brain without intravenous contrast. CTDI is 65.68 mGy and DLP is 961.59 mGy-cm. Automated exposure control was utilized for the study. A dose lowering technique was utilized adhering to the principles of ALARA. COMPARISON: MRI brain: 10/21/2006 FINDINGS: Image diagnostic quality is reduced by motion and beam hardening artifacts. Brain: There is no acute intracranial hemorrhage, mass-effect or midline shift. Focal zone of decreased attenuation in the left basal ganglia, likely an old infarct. Ventricles: Age-related mild/moderate cerebral atrophy with widening of the extra-axial spaces/ventricular dilatation. Periventricular/subcortical areas of decreased attenuation, from likely chronic microvascular disease. Bones/joints: Unremarkable. No acute fracture. Soft tissues: Unremarkable. Sinuses: Unremarkable as visualized. No acute sinusitis. Mastoid air cells: Unremarkable as visualized. No mastoid effusion.. IMPRESSION: Limited exam No acute intracranial abnormality is evident Electronically signed by: Jonathan Thao MD, DABR 01/16/24 22:45 PM Abdomen/Pelvis CT 01/16/24 20:34 Exam(s): CT ABDOMEN + PELVIS Without Contrast EXAM: CT Abdomen and Pelvis Without Intravenous Contrast CLINICAL HISTORY: Reason for exam: falls, low back pain, MADAN. TECHNIQUE: Axial computed tomography images of the abdomen and pelvis without intravenous contrast. CTDI is 33.6 mGy and DLP is 2248 mGy-cm. Automated exposure control was utilized for the study. A dose lowering technique was utilized adhering to the principles of ALARA. COMPARISON: None. FINDINGS: Lack of IV contrast limits evaluation of soft tissues/vascular structures. Lung bases: No mass. No consolidation. No pleural effusion. Proximal ascending aortic mild aneurysm: 42 mm. Calcified right coronary artery visualized. 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 ABDOMEN: Liver: A 1.9 cm ring calcified structure is seen in the dome of the right hepatic lobe, most likely benign (series 1000 image 44).. Gallbladder and bile ducts: Prior cholecystectomy. No ductal dilation. Pancreas: Pancreatic fatty infiltration , mild/moderate atrophy. No ductal dilation. Spleen: Unremarkable. No splenomegaly. Adrenals: Unremarkable. No mass. Kidneys and ureters: A 2.5 x 2.2 cm ring calcified exophytic structure is seen laterally from the mid right kidney (series 11 image 36, series 1000, image 65). No obstructing stones. No hydronephrosis. Stomach and bowel: A small hiatal hernia. Nonspecific mucosal/wall thickening of the cecum/ascending colon, this could be related to acute colitis versus incomplete distention (series 11 image 54, series 1000 image 52). No obstruction. PELVIS: Appendix: No findings to suggest acute appendicitis. Bladder: Unremarkable. No stones. Reproductive: Prior hysterectomy. ABDOMEN and PELVIS: Intraperitoneal space: No free air. No significant fluid collection. Bones/joints: No acute fracture. No dislocation. At T9-T10: Moderate degenerative spondylitic changes. Lower lumbosacral facet osteoarthropathy. Moderate bilateral hip osteoarthrosis. Soft tissues: Unremarkable. Vasculature: Mild/moderate infrarenal aortic atherosclerosis. No abdominal aortic aneurysm. Lymph nodes: No enlarged lymph nodes.. IMPRESSION: Nonspecific mucosal/wall thickening of the cecum/ascending colon, could be related to acute colitis versus incomplete distention. Recommend clinical correlation. A 2.5 x 2.2 cm ring calcified exophytic structure seen laterally a from the mid right kidney, likely a complex cyst. Renal ultrasound correlation is advised. Electronically signed by: Jonathan Thao MD, DABR 01/17/24 00:[address] 01/16/24 20:34 Exam(s): CT CHEST Without Contrast EXAM: CT Chest Without Intravenous Contrast CLINICAL HISTORY: Reason for exam: falls, CP. TECHNIQUE: Axial computed tomography images of the chest without intravenous contrast. CTDI is 33.67 mGy and DLP is 2248 mGy-cm. Automated exposure control was utilized for the study. A dose lowering technique was utilized adhering to the principles of ALARA. COMPARISON: CTA chest 11/02/2020 FINDINGS: Lungs: No pulmonary contusion. Unchanged 5 mm pulmonary nodular in the periphery of the right upper lobe. Pleural space: No pleural effusion or pneumothorax. Heart: Unremarkable. Bones/joints: No acute fracture. Soft tissues: Unremarkable. Vasculature: Aneurysmal ascending thoracic aorta up to 4.7 cm. Lymph nodes: Unremarkable. IMPRESSION: 1. No acute abnormality. 2. Aneurysmal ascending thoracic aorta up to 4.7 cm. Electronically signed by: Gurjit Dickson MD 01/17/24 00:[address] 01/16/24 20:39 Exam(s): CT L SPINE EXAM: CT Lumbar Spine Without Intravenous Contrast CLINICAL HISTORY: Reason for exam: fall, pain. TECHNIQUE: Axial computed tomography images of the lumbar spine without intravenous contrast. CTDI is 29 mGy and DLP is 573 mGy-cm. Automated exposure control was utilized for the study. A dose lowering technique was utilized adhering to the principles of ALARA. COMPARISON: No relevant prior studies available. FINDINGS: Vertebrae: No acute fracture or malalignment. Soft tissues: Unremarkable. IMPRESSION: No acute findings in the lumbar spine. Electronically signed by: Gurjit Dickson MD 01/17/24 00:38 AM Foot X-Ray 01/16/24 23:06 Exam(s): XR LEFT FOOT EXAM: XR Left Foot Complete, 3 or More Views CLINICAL HISTORY: Reason for exam: pain ?frx. TECHNIQUE: Frontal, lateral and oblique views of the left foot. COMPARISON: No relevant prior studies available. FINDINGS: Bones/joints: No acute fracture or malalignment. Pes cavus. Calcaneal enthesophytes. Soft tissues: Unremarkable. IMPRESSION: No acute fracture or malalignment. Electronically signed by: Gurjit Dickson MD 01/17/24 00:47 AM Agree with above findings and noted Accessary Navicular. Venous Doppler Study 01/17/24 01:55 EXAM: US venous doppler LE BI CLINICAL HISTORY: HX: NO PREV. ELEVATED D DIMER. EXAM LIMITED BY INCREASED BODY HABITUS, BMI 42. TECH NOTES: NO OBVIOUS DVT BILAT LOWER EXT. TECHNIQUE: Ultrasound examination of bilateral lower extremity veins was performed in real time and duplex. One or more of the following were performed- spectral analysis, resistive index, waveform analysis, and pulsed Doppler. COMPARISON: None. FINDINGS: Normal phasic, non-pulsatile and spontaneous flow is noted in bilateral GSV, common femoral, superficial femoral, popliteal and posterior tibial, anterior tibial and peroneal veins. Visualized veins of both lower extremities demonstrate normal compressibility. No sonographic evidence of acute deep vein thrombosis (DVT) is detected in the visualized veins of both lower extremities. Compression and Augmentation: All evaluated veins compress fully with applied transducer pressure. Augmentation of venous flow is noted with distal compression. Additional Findings: No evidence of intraluminal thrombus. IMPRESSION: No sonographic evidence of acute DVT detected in bilateral lower extremity veins, at the time of examination. Disclaimer: DVT could be missed early in the disease when clot burden is minimal. For patients with moderate and high pretest probability of DVT and negative ultrasound, the [employer] clinical guidelines recommend testing with a D-dimer assay or repeat ultrasound in 5-7 days. If symptoms worsen, the Society of radiologists in ultrasound recommends repeating ultrasound even earlier. Electronically signed by Bob Adams 01-17-2024 05:11 AM
--- OUTSIDE RECORDS SUMMARY | 2024-01-17 10:31 | External Medical Summary | Summary of Care ---
Author Name Unknown Organization [facility] Address [address] [place] [address] Phone [phone] Care Team Providers Care Cardiology Nurse Practitioner Name Role Phone Kennedy Brooks MD Primary Care Provider Reason for Visit * Reason Onset Date Comments Advice 01/04/2024 Encounter Details Date Type Department Care Team (Late st Contact Info) Description 01/04/2024 Telephone [facility] [address] [place] [address] Kennedy Brooks MD [address] [place] [address] Advice Allergies Active Allergy Reactions Criticality Noted Date Comments Paroxetine Hydrochloride Hives 06/07/2007 documented as of this encounter (statuses as of 01/04/2024) Medications Medication Sig Dispensed Refills Start Date End Date Status VITAMIN D 1000 UNIT PO CAPS Take 1 Capsule by mouth in the morning and 1 Capsule before bedtime. 30 Cap 11 08/30/2011 Active aspirin enteric coated 81 MG TBECIndications:Pre-o p testing,Abnormal nuclear stress test,HUGHES (dyspnea on exertion) Take 1 Tablet by mouth at bedtime. 12/07/2017 Active Diclofenac Sodium 1 % gelIndications:CMC arthritis Place 2 g topically on the skin 4 times a day as needed (arthritis). 100 g 11 04/23/2018 Active venlafaxine XR (EFFEXOR XR) 150 MG CP24 Take 1 Capsule by mouth in the morning. Take with 37.5 mg take with food. 30 Cap 5 10/29/2018 Active triamcinolone acetonide (ARISTOCORT) 0.1 % creamIndications:Chig elissa bite Apply topically to affected area 2 times a day. To affected area. 80 g 5 04/29/2019 Active Additional Information Patient taking differently:TopicalPRN, To affected area., Reported on 10/09/2023 Levalbuterol Tartrate 45 MCG/ACT Inhalation Aerosol (Xopenex HFA) Inhale 1 Puff by mouth every 4 hours as needed for Wheezing. 15 g 12 05/11/2020 Active Fluticasone Propionate 50 MCG/ACT Nasal SuspensionIndications :Chronic rhinitis Administer into each nostril 2 Sprays in the morning. 18.2 mL 11 06/04/2021 Active CPAP every night at bedtime . Active Polyethylene Glycol 3350 17 GM Oral Packet Take 1 Packet by mouth in the morning. Active Xiidra 5 % Ophthalmic Solution (Lifitegrast) Instill 1 Drop into eye in the morning and 1 Drop before bedtime. 1 drop each eye in am and at bedtime. Active Probiotic Daily Oral Capsule Take 1 Capsule by mouth in the morning. Active Fluticasone Furoate-Vilanterol 100-25 MCG/ACT Inhalation Aerosol Powder Breath Activated (BREO ellipta)Indications:M ild persistent asthma without complication Inhale 1 Puff by mouth in the morning. 60 Each 5 11/23/2022 Active Nystatin 311253 UNIT/GM External Powder (Nystop) Apply topically to affected area 3 times a day. 60 g 2 06/01/2023 Active Additional Information Patient taking differently:TopicalPRN, Reported on 10/09/2023 tiZANidine HCl 4 MG Oral Tablet (Zanaflex) Take 1 Tablet by mouth every 12 hours as needed for Muscle spasms. 40 Tablet 06/23/2023 Active buPROPion HCl ER (SR) 100 MG Oral Tablet Extended Release 12 Hour (Wellbutrin SR)Indications:HTN, goal below 140/90 Take 1 Tablet by mouth in the morning. 06/16/2023 Active Gabapentin 400 MG Oral Capsule (Neurontin)Indication s:HTN, goal below 140/90 Take 1 Capsule by mouth in the morning and 1 Capsule before bedtime. 06/08/2023 Active oxygen IN GAS 2 LPM bled through auto CPAP 7-12 cm H2O 1 Each 07/06/2023 Active Multi Vitamin Daily Oral Tablet Take 1 Tablet by mouth in the morning. Active Citracal Petites/Vitamin D 200-6.25 MG-MCG Oral Tablet (Calcium Citrate-Vitamin D) Take 1 Tablet by mouth in the morning. Active Atorvastatin Calcium 40 MG Oral Tablet (Lipitor)Indications: Other hyperlipidemia,Dyslip idemia, goal LDL below 70 Take 1 Tablet by mouth every evening. 90 Tablet 3 08/25/2023 Active Omeprazole 20 MG Oral Capsule Delayed Release (PriLOSEC)Indications :Heartburn TAKE 1 CAPSULE BY MOUTH IN THE MORNING AND 1 CAPSULE BEFORE BEDTIME. TAKE 30 MINUTES BEFORE A MEAL.. 180 Capsule 1 09/12/2023 Active Levothyroxine Sodium 100 MCG Oral Tablet (Levoxyl)Indications: Acquired hypothyroidism TAKE 1 TABLET BY MOUTH EVERY DAY FIRST THING IN THE MORNING 90 Tablet 3 09/18/2023 Active Spironolactone 25 MG Oral Tablet (Aldactone)Indication s:Hypertensive heart and kidney disease with chronic diastolic congestive heart failure and stage 3b chronic kidney disease (HCC),Chronic diastolic heart failure (HCC) TAKE 1 TABLET BY MOUTH EVERY DAY IN THE MORNING 90 Tablet 3 11/15/2023 Active Venlafaxine HCl ER 37.5 MG Oral Capsule Extended Release 24 Hour (Effexor XR) Take 1 Capsule by mouth in the morning. 11/11/2023 Active Torsemide 20 MG Oral Tablet (Demadex)Indications: Chronic diastolic heart failure (HCC) 1 tab daily in Morning 90 Tablet 3 12/01/2023 Active Amoxicillin-Pot Clavulanate 500-125 MG Oral Tablet (Augmentin) Take 1 Tablet by mouth in the morning and 1 Tablet before bedtime. 14 Tablet 12/04/2023 Active Losartan Potassium 25 MG Oral Tablet (Cozaar)Indications:H TN, goal below 140/90 TAKE ONE TABLET BY MOUTH EVERY DAY 90 Tablet 2 12/16/2023 Active Levocetirizine Dihydrochloride 5 MG Oral Tablet every evening. 11/26/2023 Active QUEtiapine Fumarate 300 MG Oral Tablet (SEROquel) TAKE 1 TABLET BY MOUTH EVERYDAY AT BEDTIME 12/10/2023 Active Wegovy 0.5 MG/0.5ML Subcutaneous Solution Auto-injector (Semaglutide-Weight Management) Inject 0.5 mg under the skin once a week. 2 mL 3 01/02/2024 Active documented as of this encounter (statuses as of 01/04/2024) Active Problems Problem Noted Date Diagnosed Date Food insecurity 09/11/2023 Overview: Per [facility] Protocol Morbid obesity with BMI of 45.0-49.9, adult 08/05 Atherosclerosis of coronary artery 08/25/2023 Aortic root enlargement 08/22/2023 Prediabetes 07/17/2023 Overview: Per Prediabetes protocol AMIRA (obstructive sleep apnea) 01/13/2023 Overview: aPAP to 8-15 cmH2O with ramp 4 cmH2O when awake Last Assessment & Plan: aPAP to 8-15 cmH2O with ramp 4 cmH2O when awake PAD (peripheral artery disease) 08/12/2022 Major depressive disorder, recurrent, moderate 1 04/23/2021 Lung nodule 06/04/2021 Chronic kidney disease, stage 3b 07/14/2020 Overview: Per CKD protocol Mild persistent asthma without complication 11/2019 Last Assessment & Plan: "RED FLAG" symptoms: Increased shortness of breath at rest ("I struggle to breathe even when watching TV", "I have to wear or turn up my oxygen just when I'm sitting on the couch") Cough ("I get a different kind of cough than what I' have every day") Wheezing ("You can hear the whistling across the room") Medication Regimen Class D, Asthma/COPD Overlap - Inhaled Glucocorticoid-LABA Combination Inhaler Self-Management plan High frequency nebulizer treatments every 4-6 hours around the clock Exacerbation plan Other/Additional Comments: zithromax and medrol dose pack Additional Comments: Hypertensive heart and kidne y disease with chronic diastolic congestive heart failure and stage 3b chronic kidney disease 01/13/2020 Overview: Per CKD protocol Last Assessment & Plan: "RED FLAG" HF Symptoms: Leg Swelling (Examples: "I can't wear certain socks or shoes", "My pants feel tight") Increased dyspnea on exertion (Example: "I can't walk to the kitchen or up the stairs") Orthopnea (Examples: "I have to sleep with more pillows than usual", "I sleep worse than normal") Medication Regimen: Beta Zakiya Therapy: No beta-zakiya secondary to stress testing LISA Inhibitor/ARB Therapy: Losartan Diuretic therapy: Torsemide Aldactone Self - Management Plan Double dose of Torsemide for 3 days Exacerbation Plan Anticipated IV Lasix dose: 80 mg Additional Comments: AMC scale in place Chronic diastolic heart failure 10/29/2019 Bipolar II disorder 04/29/2019 Dyslipidemia, goal LDL below 70 04/29/2019 Other schizophrenia 04/29/2019 Last Assessment & Plan: On effexor and seroquel Follows with non [facility], Rehana MATHIS Seroquel recently increased to 200mg Fibromyalgia 10/29/2018 Posterior interosseous nerve pain 09/30/2015 CMC arthritis 06/25/2015 Acquired autoimmune hypothyroidism 10/02/2014 Vitamin D deficiency 06/24/2014 Non-toxic multinodular goiter 09/26/2013 Gastroesophageal reflux disease without esophagi tis 08/25/2011 Chronic constipation 08/25/2011 Last Assessment & Plan: Encouraged use of miralax up to 2 times daily, can adjust as needed to maintain routine BM HTN, goal below 140/90 06/25/2009 Menopause 05/15/2007 ADVANCE DIRECTIVE INFORMATION 11/30/2006 Overview: No, Advance Directive brochure offered , patient declined. documented as of this encounter (statuses as of 01/04/2024) Resolved Problems Problem Noted Date Diagnosed Date Resolved Date Body mass index (BMI) of 45. 0 to 49.9 in adult 05/15/2023 09/14/2023 Overview: Per Obesity protocol - Per Obesity protocol - Per Obesity protocol - Per Obesity protocol Body mass index (BMI) of 50. 0 to 59.9 in adult 06/13/2022 05/18/2023 Overview: Per Obesity protocol - Per Obesity protocol - Per Obesity protocol Last Assessment & Plan: Following with weight management Consider bariatric surgery if approved Body mass index (BMI) of 45. 0 to 49.9 in adult 08/16/2021 06/16/2022 Overview: Per Obesity protocol - Per Obesity protocol Body mass index (BMI) of 40. 0 to 44.9 in adult 07/12/2021 08/19/2021 Overview: Per Obesity protocol Hilar adenopathy 06/04/2021 11/27/2023 Morbid obesity 06/04/2021 07/15/2021 Overview: Per Obesity protocol Body mass index (BMI) of 40. 0 to 44.9 in adult 04/19/2021 06/17/2021 Overview: Per Obesity protocol - Per Obesity protocol Body mass index (BMI) of 45. 0 to 49.9 in adult 09/14/2020 04/21/2021 Overview: Per Obesity protocol Morbid obesity with body mas s index (BMI) of 40.0 to 44.9 in adult 04/29/2019 09/17/2020 Overview: Per Obesity protocol Aortic root dilatation 04/29/201902/20 Cough 10/29/2018 01/04/2019 Overview: acute Hypertensive kidney disease with chronic kidney disease stage III 05/25/2018 01/16/2020 Overview: Per CKD protocol Body mass index (BMI) of 40. 0 to 44.9 in adult 12/05/2016 05/16/2019 Overview: Per Obesity protocol #1 Schizophrenia 06/24/2014 10/15/2019 Overview: history Shoulder joint pain 04/03/2012 05/26/19 19 KIDNEY DISEASE, CHRONIC, STA GE III (GFR 30-59 ML/MIN) 07/25/2011 06/13/2018 Overview: Per CKD protocol #1 LOC PRIM OSTEOARTH-HAND - CMC grade 1-2 10/22/2010 09/28/2022 Overview: duplicate Cyst of thyroid 05/10/2008 05/25/2018 Obesity, BMI not known 05/15/200712/08 Hypothyroidism 05/15/2007 05/25/2018 Headache 05/15/2007 05/25/2018 Overview: ICD-10 update of inactive term documented as of this encounter (statuses as of 01/04/2024) Immunizations Name Administration Dates Next Due COVID-19 mRNA, LNP-s, No Pre serve, 2-Dose Series (P-Commerce) 01/08/2022,05/06/2021 COVID-19, MRNA-LNP, PF, 50 M CG/0.5 mL, 12 YRS AND ABOVE, IM (MODERNA-Spikevax) 02/28/2023 Pneumococcal Conjugate Vaccine, 20-valent (Prevn ar20) 09/16/2022 Pneumococcal Polysaccharide PPV23 (Pneumovax) Seasonal Influenza, Quadrivalent Hd (Fluzone Hd) 02/22/2023 TD, Preservative Free 10/29/2019 TDAP, Age 7 and older, IM (Adacel) 08/21/2007 Zoster Vaccine Recombinant (Shingrix) 06/04/2020 ,03/03/2020 documented as of this encounter Social History Tobacco Use Types Packs/Day Years Used Date Smoking Tobacco: Never Smokeless Tobacco: Never Alcohol Use Standard Drinks/Week Comments No 0 (1 standard drink = 0.6 oz pur e alcohol) PHQ-2 Answer Date Recorded PHQ Adult Total Score 2 08/30/2023 Hunger Vital Sign Answer Date Recorded Within the past 12 months, y ou worried that your food would run out before you got the money to buy more. Sometimes true Within the past 12 months, t he food you bought just didn't last and you didn't have money to get more. Never true Childcare Answer Date Recorded Do you feel overwhelmed with taking care of a child, family member or friend? No 08/30/2023 Does your family need help f inding childcare? (Household - for ages 0-17 years) Not on file 08/30/2023 Clothing Answer Date Recorded Have you been unable to get clothing when it was really needed? Yes 08/30/2023 Is your family able to get c lothes or diapers when needed? (Household - for ages 0-17 years) Not on file 08/30/2023 Personal Safety Answer Date Recorded Do you feel unsafe or have concerns for your saf ety? No 08/30/2023 Do you have concerns for you r family's safety? (Household - for ages 0-17 years) Not on file 08/30/2023 Utilities Answer Date Recorded Do you have trouble paying y our heating, water, or electric bill? No 08/30/2023 Is your family able to pay t he heat, water, or electric bill? (Household - for ages 0-17 years) Not on file 08/30/2023 Does your family have access to good internet? (Household - for ages 0-17 years) Not on file 08/30/2023 Employment Status Answer Date Recorded Are you unemployed or without regular income? No 08/30/2023 Does the household have a re lar source of income? (Household - for ages 0-17 years) Not on file 08/30/2023 Social Connections Answer Date Recorded How often do you feel lonely or isolated from those around you? Sometimes 08/30/2023 Financial Resource Strain Answer Date R ecorded Do you have any trouble payi ng for your medications, or do you think you might in the future? No 08/30/2023 Does your family have troubl e paying for medicine? (Household - for ages 0-17 years) Not on file 08/30/2023 Transportation Needs Answer Date Record ed READ ONLY Do you have troubl e getting a ride to medical visits or work? Never True 08/30/2023 Does your family have a hard time getting a ride to doctors visits? (Household - for ages 0-17 years) Not on file 08/30/2023 Has lack of transportation k ept you from medical appointments, meetings, work, or from getting things needed for daily living? Check all that apply. No 08/30/2023 Do you (or your family) have trouble finding or paying for a ride (transportation)? (Household - for ages 0-17 years) Not on file 08/30/2023 Housing Stability Answer Date Recorded Do you currently live in a s helter or have no steady place to sleep at night? No 08/30/2023 READ ONLY Do you think you a re at risk of becoming homeless? No 08/30/2023 Does your family worry about paying for your home or becoming homeless? (Household - for ages 0-17 years) Not on file 0 08/30/2023 Are you homeless or worried that you might be in the future? No 08/30/2023 Are you (or your family) grecia eless or worried that you might be in the future? (Household - for ages 0-17 years) Not on file Food Insecurity Answer Date Recorded Do you need food for this week? No 08/30/2023 Are you able to get enough f ood for your family? (Household - for ages 0-17 years) Not on file 08/30/2023 Does your family need food t his week? (Household - for ages 0-17 years) Not on file 08/30/2023 Do you always have enough fo od for your family? (Household - for ages 0-17 years) Not on file 08/30/2023 Sex and Gender Information Value Date Recorded Sex Assigned at Female 10/29/2018 9:59 AM EDT Gender Identity Female 10/29/2018 9:59 AM EDT Sexual Orientation Straight 10/29/2018 9: 59 AM EDT Job Start Date Occupation Industry Not on file Not on file Not on file documented as of this encounter Miscellaneous Notes * Telephone Encounter - Dora Lawton OSA - 01/04/2024 3:29 PM EDT Pt received flu and RSV shot yesterday. Pt says she doesn't feel herself, shot sight is warm to thetouch and it is sore. She is very sleepy. Please advise. Please call daughter [phone] Charley documented in this encounter Plan of Treatment Upcoming Encounters Date Type Department Care Team (Latest Contact Info) Description 02/07/2024 10:15 AM EST Office Visit General Surgery, [facility] [address] [place] [address] Ben Ochoa MD [address] [place] [address] 02/07/2024 12:45 PM EST Pre-Admission Testing [facility] [place], [place] [address] [place] [address] [facility] [address] [place] [address] 02/07/2024 2:00 PM EST Office Visit Cardiology, [facility] [address] [place] [address] Clementine Wang PA-C [address] [place] [address] 02/15/2024 12:40 PM EST Office Visit Podiatry [facility] [address] [place] [address] Samantha Borden DPM [address] [place] [address] 02/21/2024 9:00 AM EST Telemedicine Nutrition & Weight Management, [address] [address] Emi Chandra CRNP [address] [place] [address] 02/26/2024 2:00 PM EST Office Visit [facility] [address] [place] [phone] Kennedy Brooks MD [address] [place] [address] 03/12/2024 7:15 AM EST Hospital Encounter [facility], OPERATING ROOM GM, [facility] [address] [place] [phone] Ben Ochoa MD [address] [place] [address] 03/12/2024 7:15 AM EST - 03/12/2024 11:13 AM EST Surgery [facility], OPERATING ROOM [facility] [address] [place] [phone] Ben Ochoa MD [address] [place] [address] LAPAROSCOPIC GASTRIC RESTRICTIVE BYPASS MALIKA EN Y 03/28/2024 11:30 AM EST Office Visit General Surgery, [facility] [address] [place] [address] Ben Ochoa MD [address] [place] [address] 04/25/2024 2:00 PM EST Nurse Only Ancillary Department, [address] [address] 06/11/2024 12:30 PM EDT Office Visit Sleep Disorders [facility] [address] [place] [phone] Iwona Yanez CRNP [address] [place] [address] 07/03/2024 3:40 PM EDT Office Visit Nephrology, [facility] [address] [place] [address] Joaquin Shelley MD [address] [place] [address] Scheduled Procedures Name Priority Associated Diagnoses Date/Ti me LAPAROSCOPIC GASTRIC RESTRIC TIVE BYPASS MALIKA EN Y Morbid obesity with BMI of 45.0-49.9, adult ([facility]) 03/12/2024 7:15 AM EST ESOPHAGOGASTRODUODENOSCOPY ( EGD), FLEXIBLE, TRANSORAL, DIAGNOSTIC Morbid obesity with BMI of 45.0-49.9, adult ([facility]) 03/12/2024 7:15 AM EST UNLISTED LAPAROSCOPIC PROCEDURE LIVER Morbid obesity with BMI of 45.0-49.9, adult ([facility]) 03/12/2024 7:15 AM EST COLONOSCOPY FLEXIBLE PROXIMA L DIAGNOSTIC Recall History of colon polyps Health Maintenance Due Date Last Done Comments Cologuard 2002 Fecal Occult Blood Test 2002 Sigmoidoscopy 2002 Colonoscopy 05/10/2023 05/09/2018, 05/09/2018 Colorectal Cancer Screening 05/10/2023 Mammogram 09/02/2023 09/01/2022, 08/05, 06/16/2021, Additional history exists COVID-19 Vaccine ( season) 2023 02/28/2023, 01/08/2022, 05/06/2021 Influenza Vaccine (FLU shot) (#1) 2023 02/22/2023 Albumin/Creatinine Ratio 02/04/2024 023, 05/20/2021, 11/13/2017, Additional history exists Adult Wellness Visit 04/21/2024 04/21/2023 GFR 05/30/2024 12/01/2023, 06/05, 04/21/2023, Additional history exists HbA1c 06/26/2024 06/27/2023, 11/18/2010 TSH 06/26/2024 06/27/2023, 05/05, 09/23/2021, Additional history exists Depression Monitoring 08/29/2024 08/30/2023 CKD HGB USE SMARTSET 68461 11/30/202411/30, 12/01/2023, 06/27/2023, Additional history exists CKD PHOS USE SMARTSET 14493 11/30/20242 09/2023, 06/27/2023, 09/09/2020, Additional history exists DTap/Tdap Vaccines (3 - Td or Tdap) 10/28/2029 10/29/2019, 08/21/2007 DXA Scan 08/27/2033 08/28/2023, 08/05, 07/25/2007 RETIRED - COLONOSCOPY-EVERY 5 YRS AGES 18-100 Discontinued 05/09/2018, 05/09/2018 Zoster Vaccines Completed 06/04/2020, 03/03/2020 Pneumococcal Vaccine: 65+ Years Completed 09/16/2022, 09/10/2013 HPV (Gardasil) Vaccine Aged Out No lo nger eligible based on patient's age to complete this topic Hepatitis B Vaccine Aged Out No longe r eligible based on patient's age to complete this topic MENINGOCOCCAL (MENACTRA/MENVEO) Aged Out No longer eligible based on patient's age to complete this topic documented as of this encounter Medical Devices Implanted Type Area [employer] Device Identifier Shelf Expiration Date Model / Serial / Lot Lens Intraoc 20.0 - [id number] - [id number] Implanted:Qty: 1 on 01/02/2020 by Guero Bell MD at OR [facility] Left: Eye [employer] 07/03/2024 [id number] / [id number] / [id number] Lens Intraoc 20.0 - [id number] - [id number] Implanted:Qty: 1 on 01/16/2020 by Guero Bell MD at OR [facility] Right: Eye [employer] 08/03/2024 [id number] / [id number] / [id number] documented as of this encounter Advance Directives * Full Code (Latest Code Status on File) Date Activated Date Inactivated Comments 10/11/2023 1:13 PM 10/11/2023 5:36 PM This order ref lects the patients wishes and were consensually agreed upon. Question Answer Comments Discussion of Advance Direct maciel occurred with: Not Discussed due to patient's condition * Full Code Date Activated Date Inactivated Comments 10/11/2023 12:15 PM 10/11/2023 1:13 PM This order re flects the patients wishes and were consensually agreed upon. Question Answer Comments Discussion of Advance Direct maciel occurred with: Not Discussed due to patient's condition Care Teams Cardiology Nurse Practitioner Relationship Specialty Start Date End Date Kennedy Brooks MD [address] [place] [address] PCP - General Family Medicine 04/23/18 documented as of this encounter
--- OUTSIDE RECORDS SUMMARY | 2024-01-17 10:31 | External Medical Summary | Summary of Care ---
Author Name Unknown Organization [facility] Address [address] [place] [address] Phone [phone] Care Team Providers Care Business Intelligence Manager Name Role Phone Kennedy Brooks MD Primary Care Provider Reason for Visit * Reason Onset Date Comments Health Maintenance 01/01/2024 Encounter Details Date Type Department Care Team (Late st Contact Info) Description 01/01/[address] [facility] [address] [place] [address] Kennedy Brooks MD [address] [place] [address] Health Maintenance Allergies Active Allergy Reactions Criticality Noted Date Comments Paroxetine Hydrochloride Hives 06/07/2007 documented as of this encounter (statuses as of 01/11/2024) Medications Medication Sig Dispensed Refills Start Date End Date Status VITAMIN D 1000 UNIT PO CAPS Take 1 Capsule by mouth in the morning and 1 Capsule before bedtime. 30 Cap 11 2 Active aspirin enteric coated 81 MG TBECIndications:Pre -op testing,Abnormal nuclear stress test,HUGHES (dyspnea on exertion) Take 1 Tablet by mouth at bedtime. 8 Active Diclofenac Sodium 1 % gelIndications:CMC arthritis Place 2 g topically on the skin 4 times a day as needed (arthritis). 100 g 11 9 Active venlafaxine XR (EFFEXOR XR) 150 MG CP24 Take 1 Capsule by mouth in the morning. Take with 37.5 mg take with food. 30 Cap 5 9 Active triamcinolone acetonide (ARISTOCORT) 0.1 % creamIndications:Ch igger bite Apply topically to affected area 2 times a day. To affected area. 80 g 5 0 Active Additional Information Patient taking differently:TopicalPRN, To affected area., Reported on 10/09/2023 Levalbuterol Tartrate 45 MCG/ACT Inhalation Aerosol (Xopenex HFA) Inhale 1 Puff by mouth every 4 hours as needed for Wheezing. 15 g 12 1 Active Fluticasone Propionate 50 MCG/ACT Nasal SuspensionIndicatio ns:Chronic rhinitis Administer into each nostril 2 Sprays in the morning. 18.2 mL 11 2 Active CPAP every night at bedtime . [...] MCG/ACT Inhalation Aerosol Powder Breath Activated (BREO ellipta)Indications :Mild persistent asthma without complication Inhale 1 Puff by mouth in the morning. 60 Each 5 3 Active Nystatin 592989 UNIT/GM External Powder (Nystop) Apply topically to affected area 3 times a day. 60 g 2 4 Active Additional Information Patient taking differently:TopicalPRN, Reported on 10/09/2023 tiZANidine HCl 4 MG Oral Tablet (Zanaflex) Take 1 Tablet by mouth every 12 hours as needed for Muscle spasms. 40 Tablet 4 Active buPROPion HCl ER (SR) 100 MG Oral Tablet Extended Release 12 Hour (Wellbutrin SR)Indications:HTN, goal below 140/90 Take 1 Tablet by mouth in the morning. 4 Active Gabapentin 400 MG Oral Capsule (Neurontin)Indicati ons:HTN, goal below 140/90 Take 1 Capsule by mouth in the morning and 1 Capsule before bedtime. 4 Active oxygen IN GAS 2 LPM bled through auto CPAP 7-12 cm H2O 1 Each 4 Active Multi Vitamin Daily Oral Tablet Take 1 Tablet by mouth in the morning. Active Citracal Petites/Vitamin D 200-6.25 MG-MCG Oral Tablet (Calcium Citrate-Vitamin D) Take 1 Tablet by mouth in the morning. Active Atorvastatin Calcium 40 MG Oral Tablet (Lipitor)Indication s:Other hyperlipidemia,Dysl ipidemia, goal LDL below 70 Take 1 Tablet by mouth every evening. 90 Tablet 3 4 Active Omeprazole 20 MG Oral Capsule Delayed Release (PriLOSEC)Indicatio ns:Heartburn TAKE 1 CAPSULE BY MOUTH IN THE MORNING AND 1 CAPSULE BEFORE BEDTIME. TAKE 30 MINUTES BEFORE A MEAL.. 180 Capsule 1 4 Active Levothyroxine Sodium 100 MCG Oral Tablet (Levoxyl)Indication s:Acquired hypothyroidism TAKE 1 TABLET BY MOUTH EVERY DAY FIRST THING IN THE MORNING 90 Tablet 3 4 Active Spironolactone 25 MG Oral Tablet (Aldactone)Indicati ons:Hypertensive heart and kidney disease with chronic diastolic congestive heart failure and stage 3b chronic kidney disease (HCC),Chronic diastolic heart failure (HCC) TAKE 1 TABLET BY MOUTH EVERY DAY IN THE MORNING 90 Tablet 3 4 Active Venlafaxine HCl ER 37.5 MG Oral Capsule Extended Release 24 Hour (Effexor XR) Take 1 Capsule by mouth in the morning. 4 Active Torsemide 20 MG Oral Tablet (Demadex)Indication s:Chronic diastolic heart failure (HCC) 1 tab daily in Morning 90 Tablet 3 4 Active Amoxicillin-Pot Clavulanate 500-125 MG Oral Tablet (Augmentin) Take 1 Tablet by mouth in the morning and 1 Tablet before bedtime. 14 Tablet 4 Active Losartan Potassium 25 MG Oral Tablet (Cozaar)Indications :HTN, goal below 140/90 TAKE ONE TABLET BY MOUTH EVERY DAY 90 Tablet 2 4 Active QUEtiapine Fumarate 200 MG Oral Tablet (SEROquel) Take 1 Tablet by mouth at bedtime. 90 Tablet 3 4 01/02/20 24 Discontinued Wegovy 0.25 MG/0.5ML Subcutaneous Solution Auto-injector (Semaglutide-Weight Management)Indicati ons:PAD (peripheral artery disease) (HCC) Inject 0.25 mg under the skin once a week. 6 mL 3 4 01/02/20 24 Discontinued Wegovy 0.5 MG/0.5ML Subcutaneous Solution Auto-injector (Semaglutide-Weight Management) Inject 0.5 mg under the skin once a week for 28 days. 2 mL 4 01/02/20 24 Discontinued documented as of this encounter (statuses as of 01/11/2024) Active Problems Problem Noted Date Diagnosed Date [...] HTN, goal below 140/90 06/25/2009 Menopause 05/15/2007 documented as of this encounter (statuses as of 01/11/2024) Resolved Problems Problem Noted Date Diagnosed Date [...] 05/25/2018 Overview: ICD-10 update of inactive term ADVANCE DIRECTIVE INFORMATION 11/30/2006 01/08/2024 Overview: No, Advance Directive brochure offered , patient declined. documented as of this encounter (statuses as of 01/11/2024) Immunizations Name Administration Dates Next Due COVID-19 mRNA, LNP-s, No Pre serve, 2-Dose Series ([employer]zle) 01/08/2022,05/06/2021 COVID-19, MRNA-LNP, PF, 52 M CG/0.5 [...] 08/30/2023 Does the household have a re gular source of income? (Household - for ages [...] encounter Miscellaneous Notes * Telephone Encounter - Gianna CalvoJESUS - 01/11/2024 2:55 PM EST Patient left me a vm. When I try to call her back I just get a busy signal. * Telephone Encounter - Gianna Calvo LPN - 01/01/2024 3:44 PM EDT Patient called back. I tried to return her call. Busy signal * Telephone Encounter - Gianna Calvo LPN - 01/01/2024 9:30 AM EDT Care Gaps Comprehensive Care Outreach Last Office/Telemedicine Visit: 08/25/2023 (in office), 11/13/2020 (telemedicine) Next Office Visit: 02/26/2024 Hemoglobin AIC Results: Lab Results Component Value Date/Time HEMOGLOBIN A1C - [facility] 5.9 (H) 06/27/2023 02:59 PM HEMOGLOBIN A1C - [facility] 5.7 11/18/2010 11:07 AM BP Readings from Last 1 Encounters: 12/07/23 112/66 Reviewed Health Maintenance below: Health Maintenance Topic Date Due Colorectal Cancer Screening 05/10/2023 Mammogram 09/02/2023 Influenza Vaccine (FLU shot) (1) 11/05/2023 COVID-19 Vaccine ( season) 2023 Albumin/Creatinine Ratio 02/04/2024 Colon Mamm urine Care Gap Outreach Action Taken: Left message documented in this encounter Plan of Treatment Upcoming Encounters Date Type Department Care Team (Latest Contact Info) Description 02/07/2024 10:15 AM EST Office Visit General Surgery, [place] [address] [place] [address] Ben Ochoa MD [address] [place] [address] 02/07/2024 12:45 PM EST Pre-Admission Testing [facility] [place] [address] [place] [address] [facility] [address] [place] [address] 02/07/2024 2:00 PM EST Office Visit Cardiology, [facility] [address] [facility] [place] [address] Clementine Wang PA-C [address] [place] [address] 02/15/2024 12:40 PM EST Office Visit Podiatry [facility] [address] [facility] [place] [address] Samantha Borden, DPAndreina [address] [place] [address] 02/21/2024 9:00 AM EST Telemedicine Nutrition & Weight Management, [place] [address], [place] [id number] Emi Chandra CRNP [address] [place] [address] 02/26/2024 2:00 PM EST Office Visit [facility] [address] [place] [address] Kennedy Brooks MD [address] [place] [address] 03/12/2024 7:15 AM EST Hospital Encounter [place] [facility] [facility] [address] [place] [phone] Ben Ochoa MD [address], [place] [phone] 03/12/2024 7:15 AM EST - 03/12/2024 11:13 AM EST Surgery [place] [facility] [address] [place] [address] Ben Ochoa MD [address] [place] [address] LAPAROSCOPIC GASTRIC RESTRICTIVE BYPASS MALIKA EN Y 03/28/2024 11:30 AM EST Office Visit General Surgery, [facility] [address] [place] [address] Ben Ochoa MD [address] [place] [address] 04/25/2024 2:00 PM EST Nurse Only Ancillary Department, [facility] [address] [place] [address] [place], Nurse [facility] [address] [place] [address] 06/11/2024 12:30 PM EDT Office Visit [facility] 132 [facility] [phone] Iwona Yanez CRNP [address] [place] [address] 07/03/2024 3:40 PM EDT Office Visit Nephrology, [facility] [address] [place] [address] Joaquin Shelley MD [address] [place] [address] Scheduled Procedures Name Priority Associated Diagnoses Date/Ti me LAPAROSCOPIC GASTRIC RESTRIC TIVE BYPASS MALIKA EN Y Morbid obesity with BMI of 45.0-49.9, adult ([facility]) 03/12/2024 7:15 AM EST ESOPHAGOGASTRODUODENOSCOPY ( EGD), FLEXIBLE, TRANSORAL, DIAGNOSTIC Morbid obesity with BMI of 45.0-49.9, adult ([facility]) 03/12/2024 7:15 AM EST UNLISTED LAPAROSCOPIC PROCEDURE LIVER Morbid obesity with BMI of 45.0-49.9, adult ([facility]) 03/12/2024 7:15 AM EST COLONOSCOPY FLEXIBLE PROXIMA [...] Monitoring 08/29/2024 08/30/2023 CKD HGB USE SMARTSET 65771 11/30/202411/30, 12/01/2023, 06/27/2023, Additional history exists CKD PHOS USE SMARTSET 57909 11/30/202411/05, 06/27/2023, 09/09/2020, Additional history exists DTap/Tdap Vaccines [...] this encounter Medical Devices Implanted Type Area Changer Fixer Device Identifier Shelf Expiration Date Model / Serial / Lot Lens Intraoc 20.0 - [id number] - [id number] Implanted:Qty: 1 on 01/02/2020 by Guero Bell MD at OR [facility] Left: Eye [employer]OM[employer] 07/03/2024 [id number] / [id number] / [id number] Lens Intraoc 20.0 - [id number] - [id number] Implanted:Qty: 1 on 01/16/2020 by Guero Bell MD at OR [facility] Right: Eye [employer] 08/03/2024 [id number] / [id number] / [id number] documented as of this encounter Advance Directives [...] Discussed due to patient's condition Care Teams Business Intelligence Manager Relationship Specialty Start Date End Date Kennedy Brooks MD [address] [place] [address] PCP - General Family Medicine 04/23/18 documented as of this encounter
--- OUTSIDE RECORDS SUMMARY | 2024-01-17 10:31 | External Medical Summary | Summary of Care ---
Author Name Unknown Organization [facility] Address [address] [place] [address] Phone [phone] Care Team Providers Care Loan Auditor Name Role Phone Kennedy Brooks MD Primary Care Provider Reason for Visit * Reason Onset Date Comments Advice 01/04/2024 Encounter Details Date Type Department Care Team (Late st Contact Info) Description 01/04/2024 Telephone [facility] [address] [place] [facility] [place] [address] Kennedy Brooks MD [address] [place] [address] Advice Allergies Active Allergy Reactions [...] morning. 60 Each 5 11/23/2022 Active Nystatin 458784 UNIT/GM External Powder (Nystop) Apply topically to [...] mRNA, LNP-s, No Pre serve, 2-Dose Series ([employer]) 01/08/2022,05/06/2021 COVID-19, MRNA-LNP, PF, 50 M CG/0.5 [...] encounter Miscellaneous Notes * Telephone Encounter - Ana Gomez LPN - 01/04/2024 3:51 PM EDT Spoke to pt's daughter. Pt is not having any difficulty breathing, no fever. Pt was advised to use a cool compress on her arm and take tylenol or what ever pt uses for discomfort. Also, advised to call us back if she is not getting better after a week or her symptoms would worsen. Pt's daughter stated understanding. * Telephone Encounter - Dora Lawton OSA - 01/04/2024 3:29 PM EDT Pt received flu and RSV shot yesterday. Pt says she doesn't feel herself, shot sight is warm to thetouch and it is sore. She is very sleepy. Please advise. Please call daughter [phone] Charley documented in this encounter Plan of Treatment Upcoming Encounters Date Type Department Care Team (Latest Contact Info) Description 02/07/2024 10:15 AM EST Office Visit General Surgery, [address] [address] Ben Ochoa MD [facility] [place] [address] 02/07/2024 12:45 PM EST Pre-Admission Testing [facility], [id number] [address] 02/07/2024 2:00 PM EST Office Visit Cardiology, [facility] [place] [phone] Clementine Wang PA-C 132 [facility] [place] [address] 02/15/2024 12:40 PM EST Office Visit Podiatry [facility] 132 [facility] [place] [address] Samantha Borden DPM 132 [place] [address] 02/21/2024 9:00 AM EST Telemedicine Nutrition & Weight Management, [address] [phone] Emi Chandra CRNP [address] [place] [phone] 02/26/2024 2:00 PM EST Office Visit [facility] [place] [address] [place] [address] Kennedy Brooks MD [address] [place] [address] 03/12/2024 7:15 AM EST Hospital Encounter [place] [facility] [address] [place] [address] Ben Ochoa MD [address] [place], [place] [address] 03/12/2024 7:15 AM EST - 03/12/2024 11:13 AM EST Surgery [place] [facility] [address] [place] [phone] Ben Ochoa MD [address] [place] [address] LAPAROSCOPIC GASTRIC RESTRICTIVE BYPASS MALIKA EN Y 03/28/2024 11:30 AM EST Office Visit General Surgery, [facility] [address] [place] [address] Ben Ochoa MD [address] [place], [place] [phone] 04/25/2024 2:00 PM EST Nurse Only Ancillary Department, [place] [address] [place] [address] [place], Nurse [facility] [address] [place] [address] 06/11/2024 12:30 PM EDT Office Visit [facility] [phone] Iwona Yanez CRNP [address] [place] [address] 07/03/2024 3:40 PM EDT Office Visit Nephrology, [facility] 200 [facility] [place] [address] Joaquin Shelley MD [address] [facility] [place] [address] Scheduled Procedures Name Priority Associated Diagnoses Date/Ti me LAPAROSCOPIC GASTRIC RESTRIC TIVE BYPASS MALIKA EN Y Morbid obesity with BMI of 45.0-49.9, adult ([facility]) 03/12/2024 7:15 AM EST ESOPHAGOGASTRODUODENOSCOPY ( EGD), FLEXIBLE, TRANSORAL, DIAGNOSTIC Morbid obesity with BMI of 45.0-49.9, adult ([facility]) 03/12/2024 7:15 AM EST UNLISTED LAPAROSCOPIC PROCEDURE LIVER Morbid obesity with BMI of 45.0-49.9, adult ([facility]) 03/12/2024 7:15 AM EST COLONOSCOPY FLEXIBLE PROXIMA [...] Monitoring 08/29/2024 08/30/2023 CKD HGB USE SMARTSET 79103 11/30/202411/30, 12/01/2023, 06/27/2023, Additional history exists CKD PHOS USE SMARTSET 81125 11/30/202411/05, 06/27/2023, 09/09/2020, Additional history exists DTap/Tdap [...] this encounter Medical Devices Implanted Type Area Supervisor Operations Device Identifier Shelf Expiration Date Model / Serial / Lot Lens Intraoc 20.0 - [id number] - [id number] Implanted:Qty: 1 on 01/02/2020 by Guero Bell MD at OR [facility] Left: Eye [employer] 07/03/2024 [id number] / [id number] / [id number] Lens Intraoc 20.0 - [id number] - [id number] Implanted:Qty: 1 on 01/16/2020 by Guero Bell MD at OR [facility] Right: Eye [employer] 08/03/2024 [id number] / [id number] / [id number] documented as of this encounter Advance Directives [...] Discussed due to patient's condition Care Teams Loan Auditor Relationship Specialty Start Date End Date Kennedy Brooks MD [address] [facility] [place] [address] PCP - General Family Medicine 04/23/18 documented as of this encounter
--- OUTSIDE RECORDS SUMMARY | 2024-01-17 10:32 | External Medical Summary | Summary of Care ---
Author Name Unknown Organization [facility] Address [address] [place] [address] Phone [phone] Care Team Providers Care Toll Collector Supervisor Name Role Phone Kennedy Brooks MD Primary Care Provider [phone] Reason for Visit * Reason Onset Date Comments Health Maintenance 01/01/2024 Encounter Details Date Type Department Care Team (Late st Contact Info) Description 01/01/2024 Telephone [facility] [address] [place] [address] Kennedy Brooks MD [address] [place] [address] Health Maintenance Allergies Active Allergy Reactions Criticality Noted Date Comments Paroxetine Hydrochloride Hives 06/07/2007 documented as of this encounter (statuses as of 01/01/2024) Medications Medication Sig Dispensed Refills Start Date End Date Status VITAMIN D 1000 UNIT PO CAPS Take 1 Capsule by mouth in the morning and 1 Capsule before bedtime. 30 Cap 11 08/30/2011 Active aspirin enteric coated 81 MG TBECIndications:Pre- op testing,Abnormal nuclear stress test,HUGHES (dyspnea on exertion) [...] 10/29/2018 Active triamcinolone acetonide (ARISTOCORT) 0.1 % creamIndications:Chi gger bite Apply topically to affected area 2 times a day. To affected area. 80 g 5 04/29/2019 Active Additional Information Patient taking differently:TopicalPRN, To affected area., Reported on 10/09/2023 Levalbuterol Tartrate 45 MCG/ACT Inhalation Aerosol (Xopenex HFA) Inhale 1 Puff by mouth every 4 hours as needed for Wheezing. 15 g 12 05/11/2020 Active Fluticasone Propionate 50 MCG/ACT Nasal SuspensionIndication s:Chronic rhinitis Administer into each nostril 2 Sprays [...] MCG/ACT Inhalation Aerosol Powder Breath Activated (BREO ellipta)Indications: Mild persistent asthma without complication Inhale 1 Puff by mouth in the morning. 60 Each 5 11/23/2022 Active QUEtiapine Fumarate 200 MG Oral Tablet (SEROquel) Take 1 Tablet by mouth at bedtime. 90 Tablet 3 05/04/2023 Active Nystatin 622475 UNIT/GM External Powder (Nystop) Apply topically to affected area 3 times a day. 60 g 2 06/01/2023 Active Additional Information Patient taking differently:TopicalPRN, Reported on 10/09/2023 tiZANidine HCl 4 MG Oral Tablet (Zanaflex) Take 1 Tablet by mouth every 12 hours as needed for Muscle spasms. 40 Tablet 06/23/2023 Active Additional Information Patient not taking.Reported on 12/01/2023 buPROPion HCl ER (SR) 100 MG Oral Tablet Extended Release 12 Hour (Wellbutrin SR)Indications:HTN, goal below 140/90 Take 1 Tablet by mouth in the morning. 06/16/2023 Active Gabapentin 400 MG Oral Capsule (Neurontin)Indicatio ns:HTN, goal below 140/90 Take 1 Capsule by [...] Tablet by mouth in the morning. Active Wegovy 0.25 MG/0.5ML Subcutaneous Solution Auto-injector (Semaglutide-Weight Management)Indicatio ns:PAD (peripheral artery disease) ([facility]) Inject 0.25 mg under the skin once a week. 6 mL 3 08/25/2023 Active Atorvastatin Calcium 40 MG Oral Tablet (Lipitor)Indications :Other hyperlipidemia,Dysli pidemia, goal LDL below 70 Take 1 Tablet by mouth every evening. 90 Tablet 3 08/25/2023 Active Omeprazole 20 MG Oral Capsule Delayed Release (PriLOSEC)Indication s:Heartburn TAKE 1 CAPSULE BY MOUTH IN THE MORNING AND 1 CAPSULE BEFORE BEDTIME. TAKE 30 MINUTES BEFORE A MEAL.. 180 Capsule 1 09/12/2023 Active Levothyroxine Sodium 100 MCG Oral Tablet (Levoxyl)Indications :Acquired hypothyroidism TAKE 1 TABLET BY MOUTH EVERY DAY FIRST THING IN THE MORNING 90 Tablet 3 09/18/2023 Active Wegovy 0.5 MG/0.5ML Subcutaneous Solution Auto-injector (Semaglutide-Weight Management) Inject 0.5 mg under the skin once a week for 28 days. 2 mL 10/17/2023 Active Spironolactone 25 MG Oral Tablet (Aldactone)Indicatio ns:Hypertensive heart and kidney disease with chronic diastolic [...] 11/11/2023 Active Torsemide 20 MG Oral Tablet (Demadex)Indications :Chronic diastolic heart failure (HCC) 1 tab daily in Morning 90 Tablet 3 12/01/2023 Active Amoxicillin-Pot Clavulanate 500-125 MG Oral Tablet (Augmentin) Take 1 Tablet by mouth in the morning and 1 Tablet before bedtime. 14 Tablet 12/04/2023 Active Losartan Potassium 25 MG Oral Tablet (Cozaar)Indications: HTN, goal below 140/90 TAKE ONE TABLET BY MOUTH EVERY DAY 90 Tablet 2 12/16/2023 Active documented as of this encounter (statuses as of 01/01/2024) Active Problems Problem Noted Date Diagnosed Date [...] as of this encounter (statuses as of 01/01/2024) Resolved Problems Problem Noted Date Diagnosed Date [...] as of this encounter (statuses as of 01/01/2024) Immunizations Name Administration Dates Next Due COVID-19 mRNA, LNP-s, No Pre serve, 2-Dose Series (Novavax AB) 01/08/2022,05/06/2021 COVID-19, MRNA-LNP, 23-24, P F, 50 MCG/0.5 mL, 12 YRS AND ABOVE, IM (MODERNA-Spikevax) [...] Miscellaneous Notes * Telephone Encounter - Gianna Calvo LPN [...] Department Care Team (Latest Contact Info) Description 01/02/2024 11:00 AM EDT Office Visit Nutrition & Weight Management, [facility] [address] [place] [address] Sallie Marrero PA-C [address] [place] [address] 02/07/2024 10:15 AM EST Office Visit General Surgery, [address] [address] Ben Ochoa MD [facility] [place] [address] 02/07/2024 12:45 PM EST Pre-Admission Testing Pre Surgery Center, [address] [address] [place] [address] [place] [address] 02/07/2024 2:00 PM EST Office Visit Cardiology, [facility] [address] [place] [address] Clementine Wang, PACadenC [address] [place] [address] 02/15/2024 12:40 PM EST Office Visit Podiatry [facility] [address] [facility] [place] [address] Samantha Borden DPM [address] [place] [address] 02/21/2024 9:00 AM EST Telemedicine Nutrition & Weight Management, [place] [address] [place], [place] [phone] Emi Chandra CRNP [address] [place], [place] [phone] 02/26/2024 2:00 PM EST Office Visit [place] [address] [place] [phone] Kennedy Brooks MD [address] [place] [address] 03/12/2024 7:15 AM EST Hospital Encounter OR [facility], OPERATING ROOM [facility] [address] [place] [phone] Ben Ochoa MD [address] [place], [place] [phone] 03/12/2024 7:15 AM EST - 03/12/2024 11:13 AM EST Surgery OR [facility], OPERATING ROOM [facility] [address] [place] [address] Ben Ochoa MD [address] [place] [address] LAPAROSCOPIC GASTRIC RESTRICTIVE BYPASS MAL[place]A [place] Y 03/28/2024 11:30 AM EST Office Visit General Surgery, [facility] [address] [facility] [place] [address] Ben Ochoa MD [address] [place] [address] 04/25/2024 2:00 PM EST Nurse Only Ancillary Department, [place] [address] [place] [address] [place], Nurse Annual [facility] [address] [place] [address] 06/11/2024 12:30 PM EDT Office Visit Sleep Disorders Ctr [facility] [place] [address] [place] [phone] Iwona Yanez CRNP [facility] [place] [address] 07/03/2024 3:40 PM EDT Office Visit Nephrology, [facility] [address] [facility] [place] [address] Joaquin Shelley MD [address] [facility] [place] [address] Scheduled Procedures Name Priority Associated Diagnoses Date/Ti me LAPAROSCOPIC GASTRIC RESTRIC TIVE BYPASS MALIKA EN Y Morbid obesity with BMI of 45.0-49.9, adult ([facility]) 03/12/2024 7:15 AM EST ESOPHAGOGASTRODUODENOSCOPY ( EGD), FLEXIBLE, TRANSORAL, DIAGNOSTIC Morbid obesity with BMI of 45.0-49.9, adult ([facility]) 03/12/2024 7:15 AM EST UNLISTED LAPAROSCOPIC PROCEDURE LIVER Morbid obesity with BMI of 45.0-49.9, adult ([facility]) 03/12/2024 7:15 AM EST COLONOSCOPY [...] Monitoring 08/29/2024 08/30/2023 CKD HGB USE SMARTSET 43587 11/30/202411/30, 12/01/2023, 06/27/2023, Additional history exists CKD PHOS USE SMARTSET 58861 11/30/202411/05, 06/27/2023, 09/09/2020, Additional history exists DTap/Tdap [...] this encounter Medical Devices Implanted Type Area Plastic Injection Mold Maker Device Identifier Shelf Expiration Date Model / Serial / Lot Lens Intraoc 20.0 - [id number] - [id number] Implanted:Qty: 1 on 01/02/2020 by Guero Bell MD at OR [facility] Left: Eye [employer] LOMB 07/03/2024 [id number] / [id number] / [id number] Lens Intraoc 20.0 - [id number] - [id number] Implanted:Qty: 1 on 01/16/2020 by Guero Bell MD at OR [facility] Right: Eye BAUSCH [employer] LOMB 08/03/2024 [id number] / [id number] / [id number] documented as of this encounter Advance Directives [...] Discussed due to patient's condition Care Teams Toll Collector Supervisor Relationship Specialty Start Date End Date Kennedy Brooks MD [address] [place] [address] PCP - General Family Medicine 04/23/18 documented as of this encounter
--- OUTSIDE RECORDS SUMMARY | 2024-01-17 10:32 | External Medical Summary | Summary of Care ---
Author Name Unknown Organization [facility] Address [address] [place] [address] Phone [phone] Care Team Providers Care Product Marketing Engineer Name Role Phone Kennedy Brooks MD Primary Care Provider Reason for Visit * Reason Onset Date Comments Health Maintenance 01/01/2024 Encounter Details Date Type Department Care Team (Late st Contact Info) Description 01/01/2024 Telephone [facility] [address] [place] [address] Kennedy Brooks MD [address] [place] [address] Health Maintenance Allergies Active Allergy [...] bedtime. 90 Tablet 3 05/04/2023 Active Nystatin 342871 UNIT/GM External Powder (Nystop) Apply topically to [...] Auto-injector (Semaglutide-Weight Management)Indicatio ns:PAD (peripheral artery disease) ([facility]) Inject 0.25 mg under the [...] mRNA, LNP-s, No Pre serve, 2-Dose Series (mangofizz jobs) 01/08/2022,05/06/2021 COVID-19, MRNA-LNP, 23-24, P F, 50 [...] EDT Office Visit Nutrition & Weight Management, [facility] [place] [address] Sallie Marrero PA-C [address] [facility] [place] [address] 02/07/2024 10:15 AM EST Office Visit General Surgery, [place] [address] [place] [address] Ben Ochoa MD [facility] [place] [address] 02/07/2024 12:45 PM EST Pre-Admission Testing Pre Surgery [place], [place] [address] [place] [address] [facility] [place] [address] 02/07/2024 2:00 PM EST Office Visit Cardiology, [facility] [address] [place] [address] Clementine Wang PA-C [address] [place] [address] 02/15/2024 12:40 PM EST Office Visit Podiatry [facility] [address] [facility] [place] [address] Samantha Borden, DPAndreina [address] [place] [address] 02/21/2024 9:00 AM EST Telemedicine Nutrition & Weight Management, [place] [address] [place], [place] [phone] Emi Chandra CRNP [address] [place] [address] 02/26/2024 2:00 PM EST Office Visit [facility] [address] [place] [phone] Kennedy Brooks MD [address] [place] [address] 03/12/2024 7:15 AM EST Hospital Encounter [place] [facility]PER[facility] ROOM [facility] [address] [place] [address] Ben Ochoa MD [address] [place] [address] 03/12/2024 7:15 AM EST - 03/12/2024 11:13 AM EST Surgery OR [facility], OPERATING ROOM [facility] [address] [place] [address] Ben Ochoa MD [address] [place] [address] LAPAROSCOPIC GASTRIC RESTRICTIVE BYPASS MALIKA EN Y 03/28/2024 11:30 AM EST Office Visit General Surgery, [facility] [address] [place] [address] Ben Ochoa MD [address] [place] [address] 04/25/2024 2:00 PM EST Nurse Only Ancillary Department, [place] [address] [place] [address] [facility] [address] [place] [address] 06/11/2024 12:30 PM EDT Office Visit Sleep Disorders [facility] [address] [place] [address] Iwona Yanez CRNP [address] [place] [address] 07/03/2024 3:40 PM EDT Office Visit Nephrology, [facility] [address] [place] [address] Joaquin Shelley MD [address] [place] [address] Scheduled Procedures Name Priority Associated Diagnoses Date/Ti me LAPAROSCOPIC GASTRIC RESTRIC TIVE BYPASS MALIKA EN Y Morbid obesity with BMI of 45.0-49.9, adult ([facility]) 03/12/2024 7:15 AM EST ESOPHAGOGASTRODUODENOSCOPY ( EGD), FLEXIBLE, TRANSORAL, DIAGNOSTIC Morbid obesity with BMI of 45.0-49.9, adult ([facility]) 03/12/2024 7:15 AM EST UNLISTED LAPAROSCOPIC PROCEDURE LIVER Morbid obesity with BMI of 45.0-49.9, adult ([facility]) 03/12/2024 7:15 AM EST COLONOSCOPY [...] Monitoring 08/29/2024 08/30/2023 CKD HGB USE SMARTSET 79722 11/30/202411/30, 12/01/2023, 06/27/2023, Additional history exists CKD PHOS USE SMARTSET 51797 11/30/202411/05, 06/27/2023, 09/09/2020, Additional history exists DTap/Tdap [...] this encounter Medical Devices Implanted Type Area Regulatory Associate Device Identifier Shelf Expiration Date Model / Serial / Lot Lens Intraoc 20.0 - [id number] - [id number] Implanted:Qty: 1 on 01/02/2020 by Guero Bell MD at OR [facility] Left: Eye BAUSCH [employer] LOMB 07/03/2024 [id number] / [id number] / [id number] Lens Intraoc 20.0 - [id number] - [id number] Implanted:Qty: 1 on 01/16/2020 by Guero Bell MD at OR [facility] Right: Eye BAUSCH [employer] LOMB 08/03/2024 [id number] / [id number] / [id number] documented as of this encounter Advance Directives [...] Discussed due to patient's condition Care Teams Product Marketing Engineer Relationship Specialty Start Date End Date Kennedy Brooks MD [address] [place] [address] PCP - General Family Medicine 04/23/18 documented as of this encounter
--- OUTSIDE RECORDS SUMMARY | 2024-01-17 10:32 | External Medical Summary | Summary of Care ---
Author Name Unknown Organization [facility] Address [address] [place] [address] Phone [phone] Care Team Providers Care Bungy Jump Master Name Role Phone Kaitlin Brooks MD Primary Care Provider Reason for Visit * Reason Comments eRx-Medication Refill Encounter Details Date Type Department Care Team (Late st Contact Info) Description 12/15/2023 Refill [facility] [address] [place] [address] Kaitlin Brooks MD [address] [place] [address] HTN, goal below 140/90 Allergies Active Allergy Reactions Criticality Noted Date Comments Paroxetine Hydrochloride Hives 06/07/2007 documented as of this encounter (statuses as of 12/16/2023) Medications Medication Sig Dispensed Refills Start Date [...] the morning. 60 Each 5 3 Active QUEtiapine Fumarate 200 MG Oral Tablet (SEROquel) Take 1 Tablet by mouth at bedtime. 90 Tablet 3 4 Active Nystatin 993730 UNIT/GM External Powder (Nystop) Apply topically to affected area 3 times a day. 60 g 2 4 Active Additional Information Patient taking differently:TopicalPRN, Reported on 10/09/2023 tiZANidine HCl 4 MG Oral Tablet (Zanaflex) Take 1 Tablet by mouth every 12 hours as needed for Muscle spasms. 40 Tablet 4 Active Additional Information Patient not taking.Reported on [...] Auto-injector (Semaglutide-Weight Management)Indicati ons:PAD (peripheral artery disease) ([facility]) Inject 0.25 mg under the skin once a week. 6 mL 3 4 Active Atorvastatin Calcium 40 MG Oral Tablet [...] THE MORNING 90 Tablet 3 4 Active Wegovy 0.5 MG/0.5ML Subcutaneous Solution Auto-injector (Semaglutide-Weight Management) Inject 0.5 mg under the skin once a week for 28 days. 2 mL 4 Active Spironolactone 25 MG Oral Tablet [...] EVERY DAY 90 Tablet 2 4 Active Losartan Potassium 25 MG Oral Tablet (Cozaar)Indications :HTN, goal below 140/90 TAKE ONE TABLET BY MOUTH EVERY DAY 90 Tablet 2 4 12/16/19 24 Discontinued documented as of this encounter (statuses as of 12/16/2023) Active Problems Problem Noted Date Diagnosed Date [...] as of this encounter (statuses as of 12/16/2023) Resolved Problems Problem Noted Date Diagnosed Date [...] as of this encounter (statuses as of 12/16/2023) Immunizations Name Administration Dates Next Due COVID-19 mRNA, LNP-s, No Pre serve, 2-Dose Series (Medi[employer]eting) 01/08/2022,05/06/2021 COVID-19, MRNA-LNP, 23-24, P F, 52 [...] encounter Miscellaneous Notes * Telephone Encounter - Jazzy Beckett RPh - 12/16/2023 2:48 PM EDTSigned Prescriptions: Disp Refills Losartan Potassium 25 MG Oral Tablet (Coza*90 Tab*2 Sig: TAKE ONE TABLET BY MOUTH EVERY DAYAuthorizing Provider: KAITLIN BROOKS User: JAZZY BECKETT----- documented in this encounter Plan of Treatment Upcoming Encounters Date Type Department Care Team (Late st Contact Info) Description 01/02/2024 11:00 AM EDT Office Visit Nutrition & Weight Management, [facility] [address] [facility] [place] [address] Sallie Marrero PA-C [facility] [place] [address] 02/07/2024 2:00 PM EST Office Visit [facility]iology, [facility] [place] [address] Clementine Wang PA-C [address] [place] [address] 02/15/2024 12:40 PM EST Office Visit Podiatry [facility] [place] [address] Samantha Borden DPM [address] [place] [address] 02/26/2024 2:00 PM EST Office Visit [address] [place] [phone] Kaitlin Brooks MD [address] [place] [address] 03/12/2024 7:15 AM EST Hospital Encounter OR [facility], OPERATING ROOM [facility] [address] [place] [address] Ben Ochoa MD [address] [place], [place] [address] 03/12/2024 7:15 AM EST - 03/12/2024 11:13 AM EST Surgery OR [facility], OPERATING ROOM [facility] [address] [place] [phone] Ben Ochoa MD [address] [place], [place] [phone] LAPAROSCOPIC GASTRIC RESTRICTIVE BYPASS MALIKA EN Y 04/25/2024 2:00 PM EST Nurse Only Ancillary Department, [address] [address] [place], [facility] Annual Wellness [address] [place] [address] 06/11/2024 12:30 PM EDT [facility] [address] [place] [phone] Iwona Yanez CRNP [address] [place] [address] 07/03/2024 3:40 PM EDT Office Visit Nephrology, [facility] [address] [place] [address] Joaquin Shelley MD 200 [facility] [place] [address] Scheduled Procedures Name Priority Associated Diagnoses Date/Ti me LAPAROSCOPIC GASTRIC RESTRIC TIVE BYPASS MALIKA EN Y Morbid obesity with BMI of 45.0-49.9, adult (HCC) 03/12/2024 7:15 AM EST ESOPHAGOGASTRODUODENOSCOPY ( EGD), FLEXIBLE, TRANSORAL, DIAGNOSTIC Morbid obesity with BMI of 45.0-49.9, adult ([facility]) 03/12/2024 7:15 AM EST UNLISTED LAPAROSCOPIC PROCEDURE LIVER Morbid obesity with BMI of 45.0-49.9, adult ([facility]) 03/12/2024 7:15 AM EST COLONOSCOPY [...] Monitoring 08/29/2024 08/30/2023 CKD HGB USE SMARTSET 48026 11/30/202411/30, 12/01/2023, 06/27/2023, Additional history exists CKD PHOS USE SMARTSET 69932 11/30/20242 09/2023, 06/27/2023, 09/09/2020, Additional history exists [...] this encounter Medical Devices Implanted Type Area Marketing Project Manager Device Identifier Shelf Expiration Date Model / Serial / Lot Lens Intraoc 20.0 - [id number] - [id number] Implanted:Qty: 1 on 01/02/2020 by Guero Bell MD at OR [facility] Left: Eye [employer]CH [employer] LOMB 07/03/2024 [id number] / [id number] / [id number] Lens Intraoc 20.0 - [id number] - [id number] Implanted:Qty: 1 on 01/16/2020 by Guero Bell MD at OR [facility] Right: Eye BAUSCH & LOMB 08/03/2024 [id number] / [id number] / [id number] documented as of this encounter Visit Diagnoses Diagnosis Morbid obesity with BMI of 45.0-49.9, adult (HCC)- Primary Morbid obesity HTN, goal below 140/90 Unspecified essential hypertension Morbid obesity with BMI of 45.0-49.9, adult (HCC) Morbid obesity documented in this encounter Advance Directives * Full Code [...] Discussed due to patient's condition Care Teams Bungy Jump Master Relationship Specialty Start Date End Date Kaitlin Brooks MD [address] [place] [address] PCP - General Family Medicine 04/23/18 documented as of this encounter
--- OUTSIDE RECORDS SUMMARY | 2024-01-17 10:32 | External Medical Summary | Summary of Care ---
Author Name Unknown Organization [facility] Address [address] [place] [address] Phone [phone] Care Team Providers Care Wheat Buyer Name Role Phone Kennedy Brooks MD Primary Care Provider Reason for Visit * Reason Onset Date Comments Order Request 09/20/2023 CPAP Encounter Details Date Type Department Care Team (Late st Contact Info) Description 09/20/2023 Telephone [facility] [address] [place] [address] Kennedy Brooks MD [address] [place] [address] Order Request (CPAP) Allergies Active Allergy Reactions Criticality Noted Date Comments Paroxetine Hydrochloride Hives 06/07/2007 documented as of this encounter (statuses as of 12/20/2023) Medications Medication Sig Dispensed Refills Start Date [...] bedtime. 90 Tablet 3 05/04/2023 Active Nystatin 460751 UNIT/GM External Powder (Nystop) Apply topically to [...] Auto-injector (Semaglutide-Weight Management)Indicatio ns:PAD (peripheral artery disease) (HCC) Inject 0.25 mg [...] THE MORNING 90 Tablet 3 09/18/2023 Active documented as of this encounter (statuses as of 12/20/2023) Active Problems Problem Noted Date Diagnosed Date [...] as of this encounter (statuses as of 12/20/2023) Resolved Problems Problem Noted Date Diagnosed Date [...] as of this encounter (statuses as of 12/20/2023) Immunizations Name Administration Dates Next Due COVID-19 mRNA, LNP-s, No Pre serve, 2-Dose Series (SportID) 01/08/2022,05/06/2021 COVID-19, MRNA-LNP, 23-24, P F, 52 [...] encounter Miscellaneous Notes * Telephone Encounter - Maia Julio LPN - 09/20/2023 11:52 AM EDT Order was placed by sleep medicine, please have your nurses send DME. * Telephone Encounter - Marisela Batista OSA - 09/20/2023 10:56 AM EDT Order on file for a cpap machine, please sign the order and fax to EDMdesigner. Please put [facility] provider, and attach office notes Office notes on or after apr 2023 documented in this encounter Plan of Treatment Upcoming Encounters Date Type Department Care Team (Latest Contact Info) Description 01/02/2024 11:00 AM EDT Office Visit Nutrition & Weight Management, [facility] [address] [address] Sallie Marrero PA-C [address] [address] 02/07/2024 10:15 AM EST Office Visit General Surgery, [address] [place] [address] Ben Ochoa MD [address] [place] [address] 02/07/2024 12:45 PM EST Pre-Admission Testing [facility], [place] [address] [place] [address] [facility] [address] [place] [address] 02/07/2024 2:00 PM EST Office Visit Cardiology, [facility] [address] [place] [address] Clementine Wang PA-C [address] [facility] [place] [address] 02/15/2024 12:40 PM EST Office Visit Podiatry [facility] [address] [place] [address] Samantha Borden DPM [address] [place] [address] 02/21/2024 9:00 AM EST Telemedicine Nutrition & Weight Management, [place] [address] [place] [address] Emi Chandra CRNP [address] [place] [address] 02/26/2024 2:00 PM EST Office Visit [facility] [address] [place] [phone] Kennedy Brooks MD [address], [place] [phone] 03/12/2024 7:15 AM EST Hospital Encounter [facility], OPERATING ROOM [facility], [facility] [address] [place] [phone] Ben Ochoa MD [address] [place] [address] 03/12/2024 7:15 AM EST - 03/12/2024 11:13 AM EST Surgery OR [facility], OPERATING ROOM [facility], [facility] [address] [place] [address] Ben Ochoa MD [address] [place] [address] LAPAROSCOPIC GASTRIC RESTRICTIVE BYPASS MALIKA EN Y 03/28/2024 11:30 AM EST Office Visit General Surgery, [facility] [address] [place] [address] Ben Ochoa MD [address] [place] [address] 04/25/2024 2:00 PM EST Nurse Only Ancillary Department, [address] [address] [facility] [address] [place] [address] 06/11/2024 12:30 PM EDT Office Visit Sleep Disorders [facility] [address] [place] [phone] Iwona aYnez CRNP [address] [place] [address] 07/03/2024 3:40 PM EDT Office Visit Nephrology, [facility] [address] [place] [address] Joaquin Shelley MD [address] [place] [address] Scheduled Procedures Name Priority Associated Diagnoses Date/Ti [...] Monitoring 08/29/2024 08/30/2023 CKD HGB USE SMARTSET 51937 11/30/202411/30, 12/01/2023, 06/27/2023, Additional history exists CKD PHOS USE SMARTSET 21855 11/30/202411/05, 06/27/2023, 09/09/2020, Additional history exists DTap/Tdap [...] encounter Medical Devices Implanted Type Area Plastic Surgery Coordinator Device Identifier Shelf Expiration Date Model / Serial / Lot Lens Intraoc 20.0 - [id number] - [id number] Implanted:Qty: 1 on 01/02/2020 by Guero Bell MD at OR [facility] Left: Eye [employer] 07/03/2024 [id number] / [id number] / [id number] Lens Intraoc 20.0 - [id number] - [id number] Implanted:Qty: 1 on 01/16/2020 by Guero Bell MD at OR [facility] Right: Eye [employer] 08/03/2024 [id number] / [id number] / [id number] documented as of this encounter Advance Directives [...] Discussed due to patient's condition Care Teams Wheat Buyer Relationship Specialty Start Date End Date Kennedy Brooks MD [address] [place] [address] PCP - General Family Medicine 04/23/18 documented as of this encounter
--- OUTSIDE RECORDS SUMMARY | 2024-01-17 10:32 | External Medical Summary | Summary of Care ---
Author Name Unknown Organization [facility] Address [address] [facility] [place] [address] Phone [phone] Care Team Providers Care Steam Bone Press Tender Name Role Phone Kennedy Brooks MD Primary Care Provider [phone] Reason for Referral * Evaluate & Treat - Unlimited Visits (Within 10 days (routine)) - Authorized Specialty Diagnoses / Procedures Referred By Ana cornelius Referred To Contact Physical Therapy / Physical Medicine And Rehab Diagnoses Acute left ankle pain Injury of left ankle, initial encounter Sprain of anterior talofibular ligament of left ankle, initial encounter Samantha Borden DPM [address] [place] [address] Referral ID Status Reason Start Date Expiration Date Visits Requested Visits Authorized [id number] Authorized Specialty Services Required 12/12/2023 999 999 Question Answer Referral Priority Within 10 days (routine) Where should this appointment be scheduled? Juanito Comments Please evaluate and treat Reason for Visit * Reason Comments Follow Up L ankle Encounter Details Date Type Department Care Team (Late st Contact Info) Description 12/12/2023 12:40 PM EDT Office Visit Podiatry [facility] [address] [place] [address] Samantha Borden DPM [address] [place] [address] Acute left ankle pain*; Injury of left ankle, initial encounter; Sprain of anterior talofibular ligament of left ankle, initial encounter Allergies Active Allergy Reactions Criticality Noted Date Comments Paroxetine Hydrochloride Hives 06/07/2007 documented as of this encounter (statuses as of 12/12/2023) Medications Medication Sig Dispensed Refills Start Date [...] the morning. 60 Each 5 11/23/2022 Active Losartan Potassium 25 MG Oral Tablet (Cozaar)Indications: HTN, goal below 140/90 TAKE ONE TABLET BY MOUTH EVERY DAY 90 Tablet 2 04/03/2023 Active Additional Information Patient taking differently: 25 mg Oral Daily(AM), Reported on 12/01/2023 QUEtiapine Fumarate 200 MG Oral Tablet (SEROquel) Take 1 Tablet by mouth at bedtime. 90 Tablet 3 05/04/2023 Active Nystatin 116468 UNIT/GM External Powder (Nystop) Apply topically to [...] Tablet before bedtime. 14 Tablet 12/04/2023 Active documented as of this encounter (statuses as of 12/12/2023) Active Problems Problem Noted Date Diagnosed Date Food insecurity 09/11/2023 Overview: Per [facility] Protocol Morbid obesity with BMI of 45.0-49.9, adult /2 03/2023 Atherosclerosis of coronary artery 08/25/2023 Aortic root [...] seroquel Follows with non [facility], Rehana DELFINA Seroquel recently increased to 200mg Fibromyalgia 10/29/2018 [...] as of this encounter (statuses as of 12/12/2023) Resolved Problems Problem Noted Date Diagnosed Date [...] as of this encounter (statuses as of 12/12/2023) Immunizations Name Administration Dates Next Due COVID-19 mRNA, LNP-s, No Pre serve, 2-Dose Series ([employer]) 01/08/2022,05/06/2021 COVID-19, MRNA-LNP, 23-24, P F, 52 [...] on file documented as of this encounter Progress Notes * Samantha Borden, KRYSTEN - 12/12/2023 12:42 PM EDT Podiatry Established Patient Note [facility] Name: Paige Hendricks : 1955 Date: 11/07/2023 CHIEF COMPLAINT: Left ankle injury DOI: 10/18/23 HISTORY OF PRESENT ILLNESS: This patient is a 68 year old female who presents today with complaintsof left ankle injury. Pt states she was sitting and her foot fell asleep. When she stood up her ankle twisted and she had immediate pain. She was seen by Dr. Decker who advised her to remain NWB to the LLE and use a CAM boot. She told him at the time that she had a boot, but was unable to locate this. She is still having some pain and swelling. Not wearing compression, but states she was given a compression sock to wear. Presents today walking to tolerance in flip flops. Denies any other complaints. 12/12/2023- Today, pt presents for follow up. She states she was doing well in the brace until it broke last week. Still has pain when standing. She did not bring the brace with her today. Denies any other complaints. Past Medical History: Diagnosis Date Acquired absence of both cervix and uterus 2001 ovaries removed Depressive disorder, not elsewhere classified Fibromyalgia GERD (gastroesophageal reflux disease) HTN, goal below 130/80 Hypothyroidism LOC PRIM OSTEOARTH-HAND - [facility] grade 1-2 10/22/2010 duplicate Osteoarthrosis involving, or with mention of more than one site, but not specified as generalized, site unspecified(715.80) Sleep apnea, obstructive Past Surgical History: Procedure Laterality Date COLONOSCOPY, DIAGNOSTIC (RECTUM) 05/09/2018 adenomatous polyp, repeat 5 yrs/COLONOSCOPY FLEXIBLE PROXIMAL DIAGNOSTIC performed by Edgardo Messer MD at ENDOSCOPY [facility] DENTAL SURGERY PROCEDURE NEC Dental Surgery Procedure EGD, FLEXIBLE, DIAGNOSTIC N/A 10/11/2023 biopsies show mild gastritis/ESOPHAGOGASTRODUODENOSCOPY (EGD), FLEXIBLE, TRANSORAL, DIAGNOSTIC performed by Jan Haynes DO at OR [facility] HAND/FINGER SURGERY NEC 06/01/2011 right hand--Dr. Fuentes INJECT DX/THER SUBSTANCE INTERLAMINAR CERVICAL/THORACIC W IMAGE GUIDE 04/07/2022 INJECTION SPINE LUMBAR CERVICAL OR THORACIC performed by Ezra Harris DO at OR [facility] INJECT DX/THER SUBSTANCE INTERLAMINAR LUMBAR/SACRAL W IMAGE GUIDE 12/06/2021 INJECTION SPINE LUMBAR OR SACRAL performed by Ezra Harris DO at OR [facility] INJECT DX/THER SUBSTANCE INTERLAMINAR LUMBAR/SACRAL W IMAGE GUIDE 10/10/2022 INJECTION SPINE LUMBAR OR SACRAL performed by Ezra Harris DO at OR [facility] LAP;W/HYSTERECTOMY 2001 Hysterectomy Complete LAPAROSCOPY; CHOLECYSTECTOMY 2001 Cholecystectomy, Laproscopic MISCELLANEOUS ORDER ([facility] ONLY) colonoscopy 2011 [place] EXCISION OF LESION OF EYELID,(EXCEPT CHALAZION) WITHOUT CLOSURE OR WITH SIMPLE DIRECT CLOSURE. Bilateral 06/22/2022 Dr. Braun-excision both eyes REMOVAL OF EYELID LESION Bilateral 11/09/2022 Dr. Braun-excision of lesion OU REMOVE CATARACT, INSERT LENS PROSTH Left 01/02/2020 leftEXTRACAPSULAR CATARACT REMOVAL WITH INTRAOCULAR LENS performed by Guero Bell MD at[facility] REMOVE CATARACT, INSERT LENS PROSTH Right 01/16/2020 rightEXTRACAPSULAR CATARACT REMOVAL WITH INTRAOCULAR LENS performed by Guero Bell MD at OR [facility] UMBIL HERNIA REPAIR (REDUCIBLE) AGE 5+YR 2001 Umbilical Hernia Repair, age 5+ yr Family History Problem Relation Name Age of Onset Cancer Mother ovarian, liver Cancer Father lung, esophageal, liver ca Heart Disorder Father Heart disease Sister Stents Social History Socioeconomic History Marital status: Number of children: 2 Occupational History Occupation: [employer] Employer: [employer] Tobacco Use Smoking status: Never Smokeless tobacco: Never Vaping Use Vaping status: Never Used Substance and Sexual Activity Alcohol use: No Drug use: No Social Determinants of Health Financial Resource Strain: Low Risk (08/30/2023) Financial Resource Strain Do you have any trouble paying for your medications, or do you think you might in the future? (Adult - for ages 18 years and over): No Food Insecurity: No Food Insecurity (08/30/2023) Food Insecurity Do you need food for this week? (Adult - for ages 18 years and over): No Recent Concern: Food Insecurity - Food Insecurity Present (08/30/2023) Hunger Vital Sign Worried About Running Out of Food in the Last Year: Sometimes true Ran Out of Food in the Last Year: Never true Transportation Needs: No Transportation Needs (08/30/2023) Transportation Needs Do you have trouble getting a ride to medical visits or work? (Adult - for ages 18 years and over):Never True Has lack of transportation kept you from medical appointments, meetings, work, or from getting things needed for daily living? Check all that apply. (Adult - for ages 18 years and over): No Social Connections: Socially Integrated (08/30/2023) Social Connections How often do you feel lonely or isolated from those around you? (Adult - for ages 18 years and over): Sometimes Housing Stability: Low Risk (08/30/2023) Housing Stability Do you currently live in a long term or have no steady place to sleep at night? (Adult - for ages 18 years and over): No Do you think you are at risk of becoming homeless? (Adult - for ages 18 years and over): No Are you homeless or worried that you might be in the future? (Adult - for ages 18 years and over): No Current Outpatient Medications Medication Sig Dispense Refill VITAMIN D 1000 UNIT PO CAPS Take 1 Capsule by mouth in the morning and 1 Capsule before bedtime. 30Cap 11 aspirin enteric coated 81 MG TBEC Take 1 Tablet by mouth at bedtime. Diclofenac Sodium 1 % gel Place 2 g topically on the skin 4 times a day as needed (arthritis). 100 g 11 venlafaxine XR (EFFEXOR XR) 150 MG CP24 Take 1 Capsule by mouth in the morning. Take with 37.5 mg take with food. (Patient not taking: Reported on 12/01/2023) 30 Cap 5 triamcinolone acetonide (ARISTOCORT) 0.1 % cream Apply topically to affected area 2 times a day. Toaffected area. (Patient taking differently: Apply topically to affected area as needed. To affectedarea.) 80 g 5 Levalbuterol Tartrate 45 MCG/ACT Inhalation Aerosol (Xopenex HFA) Inhale 1 Puff by mouth every 4 hours as needed for Wheezing. 15 g 12 Fluticasone Propionate 50 MCG/ACT Nasal Suspension Administer into each nostril 2 Sprays in the morning. 18.2 mL 11 CPAP every night at bedtime . Polyethylene Glycol 3350 17 GM Oral Packet Take 1 Packet by mouth in the morning. Xiidra 5 % Ophthalmic Solution (Lifitegrast) Instill 1 Drop into eye in the morning and 1 Drop before bedtime. 1 drop each eye in am and at bedtime. Probiotic Daily Oral Capsule Take 1 Capsule by mouth in the morning. Fluticasone Furoate-Vilanterol 100-25 MCG/ACT Inhalation Aerosol Powder Breath Activated (BREO ellipta) Inhale 1 Puff by mouth in the morning. 60 Each 5 Losartan Potassium 25 MG Oral Tablet (Cozaar) TAKE ONE TABLET BY MOUTH EVERY DAY (Patient taking differently: Take 1 Tablet by mouth in the morning.) 90 Tablet 2 QUEtiapine Fumarate 200 MG Oral Tablet (SEROquel) Take 1 Tablet by mouth at bedtime. 90 Tablet 3 Nystatin 845001 UNIT/GM External Powder (Nystop) Apply topically to affected area 3 times a day. (Patient taking differently: Apply topically to affected area as needed.) 60 g 2 tiZANidine HCl 4 MG Oral Tablet (Zanaflex) Take 1 Tablet by mouth every 12 hours as needed for Muscle spasms. (Patient not taking: Reported on 12/01/2023) 40 Tablet 0 buPROPion HCl ER (SR) 100 MG Oral Tablet Extended Release 12 Hour (Wellbutrin SR) Take 1 Tablet by mouth in the morning. Gabapentin 400 MG Oral Capsule (Neurontin) Take 1 Capsule by mouth in the morning and 1 Capsule before bedtime. oxygen IN GAS 2 LPM bled through auto CPAP 7-12 cm H2O 1 Each 0 Multi Vitamin Daily Oral Tablet Take 1 Tablet by mouth in the morning. Citracal Petites/Vitamin D 200-6.25 MG-MCG Oral Tablet (Calcium Citrate-Vitamin D) Take 1 Tablet bymouth in the morning. Wegovy 0.25 MG/0.5ML Subcutaneous Solution Auto-injector (Semaglutide-Weight Management) Inject 0.25 mg under the skin once a week. 6 mL 3 Atorvastatin Calcium 40 MG Oral Tablet (Lipitor) Take 1 Tablet by mouth every evening. 90 Tablet 3 Omeprazole 20 MG Oral Capsule Delayed Release (PriLOSEC) TAKE 1 CAPSULE BY MOUTH IN THE MORNING AND1 CAPSULE BEFORE BEDTIME. TAKE 30 MINUTES BEFORE A MEAL.. 180 Capsule 1 Levothyroxine Sodium 100 MCG Oral Tablet (Levoxyl) TAKE 1 TABLET BY MOUTH EVERY DAY FIRST THING IN THE MORNING 90 Tablet 3 Wegovy 0.5 MG/0.5ML Subcutaneous Solution Auto-injector (Semaglutide-Weight Management) Inject 0.5 mg under the skin once a week for 28 days. 2 mL 0 Spironolactone 25 MG Oral Tablet (Aldactone) TAKE 1 TABLET BY MOUTH EVERY DAY IN THE MORNING 90 Tablet 3 Venlafaxine HCl ER 37.5 MG Oral Capsule Extended Release 24 Hour (Effexor XR) Take 1 Capsule by mouth in the morning. Torsemide 20 MG Oral Tablet (Demadex) 1 tab daily in Morning 90 Tablet 3 Amoxicillin-Pot Clavulanate 500-125 MG Oral Tablet (Augmentin) Take 1 Tablet by mouth in the morning and 1 Tablet before bedtime. 14 Tablet 0 No current facility-administered medications for this visit. ALLERGIES: Review of patient's allergies indicates: Allergen Reactions Paxil [Paroxetine Hydrochloride] Hives REVIEW OF SYSTEMS: CONSTITUTIONAL: No change in weight, No weakness, No fatigue, and No fevers, sweats, or chills EYE: No recent significant change in vision and No eye pain, redness, discharge NOSE: No history of frequent colds or sinusitis and No nasal stuffiness PULMONARY: No cough, sputum, or hemoptysis and No recent change in breathing CARDIOVASCULAR: No chest pain and No shortness of breath EXTREMITIES: Left ankle pain SKIN/INTEGUMENTARY: No rash and No itching NEUROLOGIC: Normal balance, No headaches, No seizures, and No weakness PSYCHIATRIC: No depression, No anxiety, and No psychosis LEFT FOCUSED PODIATRIC EXAM: Vitals: There were no vitals filed for this visit. General: Patient is awake alert oriented to person place time. No apparent distress. Vascular: DP/PT pulses palpable. CFT < 3 sec 1-5. Edema noted. Temperature gradient is normal warm to cold. Neurologic: Protective sensation intact to light touch. Sensation to sharp/dull is intact. Dermatological: Skin is normal in appearance with no open lesions or interdigital macerations. Nails 1-5 are normalin length and thickness. Pedal hair is noted. Musculoskeletal: POP noted to the ATFL and with inversion. No pain with active or passive ROM of the digits or anklejoint. Muscle strength is 5/5 for all muscle groups of the lower extremity. DIAGNOSTIC STUDIES: 3 views of the left foot/ankle (11/02/23) FINDINGS: Bones/joints: Multiple views were obtained. The osseous structures appear intact with no evidence of acute fracture, dislocation, or malalignment. Degenerative changes are noted, consistent with age-related wear and tear. Joint spaces are generally preserved. No abnormal bone density or destructive lesions are noted. Soft tissues: Soft tissue swelling is observed, warranting further clinical correlation. IMPRESSION IMPRESSION: At the time of imaging, the skeletal radiograph demonstrates no acute osseous abnormalities but shows signs of degenerative changes and soft tissue swelling. ASSESSMENT: Left ankle pain Left ankle injury Left ankle sprain- ATFL PLAN: - Xrays personally reviewed and discussed with the pt. All questions answered. - Will have patient bring in brace to have this replaced. - Referral for PT placed. - WBAT in good, supportive shoes. - OTC pain medication PRN. - Note given for work. - Pt to RTC in 8 weeks. Instructed to call with any problems or questions. Possible PT if no improvement. Samantha Borden DPM documented in this encounter Nursing Notes * Karuna Zazueta LPN - 12/12/2023 12:33 PM EDT Pt presents for 4 week follow up L ankle sprain, DOI: 10/18/23. Received lace up ankle brace 11/07/2023, wore it until it 'came apart' last week. Has pain when going without the brace. documented in this encounter Plan of Treatment Upcoming Encounters Date Type Department Care Team (Late st Contact Info) Description 01/02/2024 11:00 AM EDT Office Visit Nutrition & Weight Management, [facility] [address] [facility] [place] [address] Sallie Marrero PA-C [facility] [address] 02/07/2024 2:00 PM EST Office Visit Cardiology, [facility] [address] [facility] [address] Clementine Wang PA-C [address] [facility] [address] 02/15/2024 12:40 PM EST Office Visit Podiatry [facility] [address] [place] [address] Samantha [facility]orden DPM [facility] [address] 02/26/2024 2:00 PM EST Office Visit [facility] [address] [place] [id number] Kennedy Brooks MD [address] [place] [address] 03/12/2024 7:15 AM EST Hospital Encounter [facility], [facility] [address] [place] [address] Ben Ocoha MD [address] [place] [address] 03/12/2024 7:15 AM EST - 03/12/2024 11:13 AM EST Surgery OR [facility], OPERATING ROOM [facility], [facility] [address] [place] [address] Ben Ochoa MD [address] [place], [place] [id number] LAPAROSCOPIC GASTRIC RESTRICTIVE BYPASS MALIKA EN Y 04/25/2024 2:00 PM EST Nurse Only Ancillary Department, [address] [address] [place], [facility] [address] [place] [address] 06/11/2024 12:30 PM EDT Office Visit Sleep Disorders [facility] [address] [place] [id number] Iwona Yanez CRNP [address] [place] [address] 07/03/2024 3:40 PM EDT Office Visit Nephrology, [facility] [address] [facility] [place] [address] Joaquin Shelley MD [address] [facility] [place] [address] Scheduled Procedures Name Priority Associated Diagnoses Date/Ti me LAPAROSCOPIC GASTRIC RESTRIC TIVE BYPASS MALIKA EN Y Morbid obesity with BMI of 45.0-49.9, adult ([facility]) 03/12/2024 7:15 AM EST ESOPHAGOGASTRODUODENOSCOPY ( EGD), FLEXIBLE, TRANSORAL, DIAGNOSTIC Morbid obesity with BMI of 45.0-49.9, adult ([facility]) 03/12/2024 7:15 AM EST UNLISTED LAPAROSCOPIC PROCEDURE LIVER Morbid obesity with BMI of 45.0-49.9, adult ([facility]) 03/12/2024 7:15 AM EST COLONOSCOPY FLEXIBLE PROXIMA L DIAGNOSTIC Recall History of colon polyps Scheduled Referrals Name Type Priority Associated Diagnoses Orde r Schedule PHYSICAL THERAPY REFERRAL OP Referral Within 10 days (routine) Acute left ankle pain Injury of left ankle, initial encounter Sprain of anterior talofibular ligament of left ankle, initial encounter Ordered: 12/12/2023 Health Maintenance Due Date Last Done Comments [...] Monitoring 08/29/2024 08/30/2023 CKD HGB USE SMARTSET 17629 11/30/202411/30, 12/01/2023, 06/27/2023, Additional history exists CKD PHOS USE SMARTSET 17724 11/30/202411/05, 06/27/2023, 09/09/2020, Additional history exists DTap/Tdap [...] this encounter Medical Devices Implanted Type Area Assistant Media Planner Device Identifier Shelf Expiration Date Model / Serial / Lot Lens Intraoc 20.0 - [id number] - [id number] Implanted:Qty: 1 on 01/02/2020 by Guero Bell MD at OR [facility] Left: Eye [employer] 07/03/2024 [id number] / [id number] / [id number] Lens Intraoc 20.0 - [id number] - [id number] Implanted:Qty: 1 on 01/16/2020 by Guero Bell MD at OR [facility] Right: Eye [employer] 08/03/2024 [id number] / [id number] / [id number] documented as of this encounter Visit Diagnoses Diagnosis Morbid obesity with BMI of 45.0-49.9, adult (HCC)- Primary Morbid obesity Acute left ankle pain- Primary Injury of left ankle, initial encounter Sprain of anterior talofibular ligament of left ankle, initial encounter Morbid obesity with BMI of 45.0-49.9, adult [...] Discussed due to patient's condition Care Teams Steam Bone Press Tender Relationship Specialty Start Date End Date Kennedy Brooks MD [address] [place] [address] PCP - General Family Medicine 04/23/18 documented as of this encounter
--- OUTSIDE RECORDS SUMMARY | 2024-01-17 10:32 | External Medical Summary | Summary of Care ---
Author Name Unknown Organization [facility] Address [address] [place] [address] Phone [phone] Care Team Providers Care Reimbursement Spec Name Role Phone Kennedy Brooks MD Primary Care Provider [phone] Reason for Visit * Reason Comments NEW PATIENT Evaluation of morbid obesity. * Evaluate & Treat - Unlimited Visits (Within 30 days (routine)) - Authorized Specialty Diagnoses / Procedures Referred By Ana cornelius Referred To Contact General Surgery Diagnoses Morbid obesity with BMI of 45.0-49.9, adult (HCC) Madhu Portillo DO [address] [place] [address] Ben Ochoa MD [address] [facility] [place] [address] Referral ID Status Reason Start Date Expiration Date Visits Requested Visits Authorized [id number] Authorized Specialty Services Required 11/28/2023 [id number] Encounter Details Date Type Department Care Team (Late st Contact Info) Description 12/07/2023 12:45 PM EDT Office Visit General Surgery, [facility] [address] [place] [facility] [place] [address] Ben Ochoa MD [address] [place] [address] Morbid obesity with BMI of 45.0-49.9, adult (HCC)*; Atherosclerosis of ak chin coronary artery of ak chin heart without angina pectoris; Bipolar II disorder (HCC); Chronic diastolic heart failure (HCC); Chronic kidney disease, stage 3b (HCC); Dyslipidemia, goal LDL below 70; Gastroesophageal reflux disease without esophagitis; HTN, goal below 140/90; Major depressive disorder, recurrent, moderate ([facility]); AMIRA (obstructive sleep apnea); PAD (peripheral artery disease) ([facility]); Prediabetes; Vitamin D deficiency Allergies Active Allergy Reactions Criticality Noted Date Comments Paroxetine Hydrochloride Hives 06/07/2007 documented as of this encounter (statuses as of 12/11/2023) Medications Medication Sig Dispensed Refills Start Date [...] bedtime. 90 Tablet 3 05/04/2023 Active Nystatin 927372 UNIT/GM External Powder (Nystop) Apply topically to [...] Auto-injector (Semaglutide-Weight Management)Indicatio ns:PAD (peripheral artery disease) ([facility]) Inject 0.25 mg under the skin once [...] as of this encounter (statuses as of 12/11/2023) Active Problems Problem Noted Date Diagnosed Date [...] as of this encounter (statuses as of 12/11/2023) Resolved Problems Problem Noted Date Diagnosed Date [...] as of this encounter (statuses as of 12/11/2023) Immunizations Name Administration Dates Next Due COVID-19 mRNA, LNP-s, No Pre serve, 2-Dose Series ([employer]) 01/08/2022,05/06/2021 COVID-19, MRNA-LNP, 23-24, P F, 52 [...] on file documented as of this encounter Last Filed Vital Signs Vital Sign Reading Time Taken Comments Blood Pressure 112/66 12/07/2023 12:37 PM EDT Pulse 88 12/07/2023 12:37 PM EDT Temperature - - Respiratory Rate - - Oxygen Saturation - - Inhaled Oxygen Concentration - - Weight 126.1 kg (278 lb) 12/07/2023 12:37 PM EDT Height - - Body Mass Index 49.4 11/27/2023 10:12 AM EDT documented in this encounter Progress Notes * Ben Ochoa MD - 12/07/2023 12:45 PM EDT Images from the original note were not included. [facility] VISIT AT [facility] 12/07/2023 Paige Hendricks [id number] 68 year old PCP: Kennedy Brooks MD Consult requested by: JACKIE Dover PA-C CC: Paige Hendricks comes to see me in Bariatric Surgical Clinic for evaluation of morbid obesity. HPI: This patient has been successfully treated in the [facility] for the past (Duration) 7 months and now presents for consideration of bariatric surgery. H/O Previous Bariatric Surgery: NONE Modifying Factor: Are you exercising? YES walking; Associated Signs and Symptoms: The patient suffers from Heartburn, Regurgitation, and Constipation. In addition, she experiences Dry cough and Sputum. This patient denies any history of Water brash, Abdominal Pain , Chest Pain , Sore throat or mouth,chronic, Ear pain, Sinusitis, chronic, Anorexia, Early satiety, Diarrhea, Globus, Dysphagia, Odynophagia, Gas bloat, Nausea, Vomiting, Hoarseness, Hallitosis, and Poor dentition or Dyspnea at rest, Dyspnea with exertion, Fatigue, Hematemesis, Hematochezia, Hemoptysis, Jaundice, Melena, Len coloredor light stools, Tea colored or dark urine, Productive cough, and Wheezing. DIAGNOSTIC TESTS: 07/27/23: US ABDOMEN LIMITED FINDINGS: Gallbladder: Not identified compatible with patient's history of prior cholecystectomy. There is no intrahepatic biliary dilatation. No extrahepatic biliary dilatation with common duct measuring approximally 7 mm. This is mildly prominent but within normal limits post cholecystectomy state. There is no gross choledocholithiasis. Liver: Size length: Right lobe approximate 16.2 cm; prominent Visualized parenchyma relatively homogeneous but somewhat diffusely increased in echotexture; a nonspecific finding but often can reflect fatty infiltration among other etiologies including chronic inflammation, cirrhosis and etc.. Currently, however, visualized surface contour is smooth without nodularity. Again in the right lobe there is a echogenic focus compatible with prior ascribed calcification measuring approximally 1.7 cm greatest diameter no new focal lesion identified. Ascites: None demonstrated right upper quadrant Pancreas: Unfortunately, pancreatic bed somewhat obscured by overlying bowel and particularly distal body/tail of pancreas obscured. Visualized parenchyma demonstrates no discrete focal lesion or pancreatic ductal dilatation. Right Kidney: Size length: 10.6 cm. Contour maintained. Cortex relatively maintained as to thickness/echotexture. In the mid aspect kidney there is again an ovoid peripherally calcified lesion which has previouslybeen felt to be complicated cyst such as Bosniak CT class 2 on prior studies i.e. MRI dated 08/08/2022. This measures approximally 3.0 cm x 2.3 cm x 2.1 cm. No other focal lesion identified. No hydronephrosis. Right renal pelvis mildly prominent which may reflect extrarenal pelvis. Again no significant hydronephrosis. No demonstrable intrarenal calculus or perinephric abnormality. Right pleural effusion: None demonstrated. IMPRESSION IMPRESSION: Status post cholecystectomy. Suspect element of hepatic parenchymal fatty infiltration. Right hepatic lobe calcification redemonstrated. Calcified lesion redemonstrated right kidney previously ascribed to be complicated cyst. Patient Name: Paige Hendricks Procedure Date: 10/11/2023 12:56 PM Procedure: Upper GI endoscopy Findings & Specimens: The examined esophagus was normal. The Z-line was regular and was found 36 cm from the incisors. The entire examined stomach was normal. Biopsies were taken with a cold forceps for histology. The pathology specimen was placed into Bottle A. Estimated blood loss was minimal. The examined duodenum was normal. Impression: - Normal esophagus. - Z-line regular, 36 cm from the incisors. - Normal stomach. Biopsied. - Normal examined duodenum. A. Stomach, biopsy for HP: Gastric antral and oxyntic mucosa with focal hyperemia and feature consistent with mild reactive/chemical gastropathy. Immunostain for H.pylori is negative with appropriate control. Results for orders placed or performed in visit on 06/27/23 COMPREHENSIVE METABOLIC PANEL Result Value Ref Range BUN 15 6 - 20 mg/dL CREATININE 1.6 (H) 0.5 - 1.0 mg/dL EGFR 36 (L) >=60 mL/min SODIUM 141 135 - 146 mmol/L POTASSIUM 3.8 3.5 - 5.1 mmol/L CHLORIDE 102 98 - 107 mmol/L CO2 29 22 - 32 mmol/L ANION GAP 10 7 - 15 mmol/L GLUCOSE 105 70 - 120 mg/dL Albumin 3.9 3.8 - 5.0 g/dL AST 18 10 - 35 U/L Alkaline Phosphatase 105 35 - 130 U/L Bilirubin, Total 0.4 <=1.2 mg/dL CALCIUM 9.3 8.4 - 10.2 mg/dL Protein 6.6 6.0 - 8.3 g/dL ALT 19 10 - 35 U/L Results for orders placed or performed in visit on 03/24/20 LIPID PANEL WITHOUT DIRECT LDL Result Value Ref Range HOURS FASTING >8 HOURS hours Triglycerides 128 0 - 174 mg/dL Cholesterol 171 <200 mg/dL HDL Cholesterol 63 >49 mg/dL NON-HDL CHOLESTEROL 108 0 - 159 mg/dL LDL Cholesterol 82 0 - 129 mg/dL Results for orders placed or performed in visit on 06/27/23 LIPID PANEL WITH DIRECT LDL IF TG IS HIGH Result Value Ref Range Triglycerides 113 <=174 mg/dL Cholesterol 132 <200 mg/dL HDL Cholesterol 58 >49 mg/dL Non-HDL Cholesterol 74 <=159 mg/dL LDL Cholesterol 51 <=129 mg/dL Results for orders placed or performed in visit on 06/27/23 HEMOGLOBIN A1C Result Value Ref Range Hemoglobin A1C 5.9 (H) 4.0 - 5.6 % Estimated Average Glucose 123 <126 mg/dL HgBA1C greater than 8? No Current Outpatient Medications Medication Sig Dispense [...] mouth at bedtime. 90 Tablet 3 Nystatin [id number] UNIT/GM External Powder (Nystop) Apply topically to [...] No current facility-administered medications for this visit. Vitamins and Minerals: MVI, Calcium, and Vitamin D Allergies as of 12/07/2023 - Reviewed 12/07/2023 Allergen Reaction Noted Paxil [paroxetine hydrochloride] Hives 06/07/2007 Past Medical History: Diagnosis Date Acquired absence [...] performed by Edgardo Messer MD at ENDOSCOPY [facility] DENTAL SURGERY PROCEDURE NEC Dental Surgery Procedure EGD, FLEXIBLE, DIAGNOSTIC N/A 10/11/2023 biopsies show mild gastritis/ESOPHAGOGASTRODUODENOSCOPY (EGD), FLEXIBLE, TRANSORAL, DIAGNOSTIC performed by Jan Haynes DO at OR [facility] HAND/FINGER SURGERY NEC 06/01/2011 right hand--Dr. Fuentes INJECT DX/THER SUBSTANCE INTERLAMINAR CERVICAL/THORACIC W IMAGE GUIDE 04/07/2022 INJECTION SPINE LUMBAR CERVICAL OR THORACIC performed by Ezra Harris DO at OR [facility] INJECT DX/THER SUBSTANCE INTERLAMINAR LUMBAR/SACRAL W IMAGE GUIDE 12/06/2021 INJECTION SPINE LUMBAR OR SACRAL performed by Ezra Harris DO at OR [facility] INJECT DX/THER SUBSTANCE INTERLAMINAR LUMBAR/SACRAL W IMAGE GUIDE 10/10/2022 INJECTION SPINE LUMBAR OR SACRAL performed by Ezra Harris DO at OR [facility] LAP;W/HYSTERECTOMY 2001 Hysterectomy Complete LAPAROSCOPY; CHOLECYSTECTOMY 2002 Cholecystectomy, Laproscopic MISCELLANEOUS ORDER ([facility] ONLY) colonoscopy 2011 [place] EXCISION OF LESION OF EYELID,(EXCEPT CHALAZION) WITHOUT CLOSURE OR WITH SIMPLE DIRECT CLOSURE. Bilateral 06/22/2022 Dr. Braun-excision both eyes REMOVAL OF EYELID LESION Bilateral 11/09/2022 Dr. Braun-excision of lesion OU REMOVE CATARACT, INSERT LENS PROSTH Left 01/02/2020 leftEXTRACAPSULAR CATARACT REMOVAL WITH INTRAOCULAR LENS performed by Guero Bell MD at[facility] REMOVE CATARACT, INSERT LENS PROSTH Right 01/16/2020 rightEXTRACAPSULAR CATARACT REMOVAL WITH INTRAOCULAR LENS performed by Guero Bell MD at OR [facility] UMBIL HERNIA REPAIR (REDUCIBLE) AGE 5+YR 2001 Umbilical Hernia Repair, age 7+ yr Social History Socioeconomic History Marital status: Spouse name: Not on file Number of children: 2 Years of education: Not on file Highest education level: Not on file Occupational History 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 (Adult - for ages 18 years and over): No Does your family have trouble paying for medicine? (Household - for ages 0-17 years): Not on file Food Insecurity: No Food Insecurity (08/30/2023) Food Insecurity Do you need food for this week? (Adult - for ages 18 years and over): No Are you able to get enough food for your family? (Household - for ages 0-17 years): Not on file Does your family need food this week? (Household - for ages 0-17 years): Not on file Do you always have enough food for your family? (Household - for ages 0-17 years): Not on file Recent Concern: Food Insecurity - Food Insecurity Present (08/30/2023) Hunger Vital Sign Worried About Running Out of Food in the Last Year: Sometimes true Ran Out of Food in the Last Year: Never true Transportation Needs: No Transportation Needs (08/30/2023) Transportation Needs Do you have trouble getting a ride to medical visits or work? (Adult - for ages 18 years and over):Never True Does your family have a hard time getting a ride to doctors visits? (Household - for ages 0-17 years): Not on file Has lack of transportation kept you from medical appointments, meetings, work, or from getting things needed for daily living? Check all that apply. (Adult - for ages 18 years and over): No Do you (or your family) have trouble finding or paying for a ride (transportation)? (Household - for ages 0-17 years): Not on file Social Connections: Socially Integrated (08/30/2023) Social Connections How often do you feel lonely or isolated from those around you? (Adult - for ages 18 years and over): Sometimes Housing Stability: Low Risk (08/30/2023) Housing Stability Do you currently live in a mcc or have no steady place to sleep at night? (Adult - for ages 18 years and over): No Do you think you are at risk of becoming homeless? (Adult - for ages 18 years and over): No Does your family worry about paying for your home or becoming homeless? (Household - for ages 0-17 years): Not on file Are you homeless or worried that you might be in the future? (Adult - for ages 18 years and over): No Are you (or your family) homeless or worried that you might be in the future? (Household - for ages0-17 years): Not on file Family History Problem Relation Name Age of Onset Cancer Mother ovarian, liver Cancer Father lung, esophageal, liver ca Heart Disorder Father Heart disease Sister Stents Family history non contributory Psychosocial Current smoker within 1 year? No History of tobacco use? No Using nicotine replacement? No Current ETOH Use? No Substance Abuse None; Functional health status? Independent Depression Moderate, accompanied by some impairment, may require treatment Confirmed Mental Health Diagnosis NO History EMPLOYMENT; part time, . REVIEW OF SYSTEMS: Endocrine Diabetes Mellitis? No Gout Hyperuricemia NO symptoms gout or hyperuricemia Other Endocrine abnormalities: Thyroid Pulmonary History of severe COPD? No Oxygen dependent? Yes- 2 L at night History of Pulmonary Embolism? No Obstructive Sleep Apnea? Yes, Sleep Apnea with significant hypoxia or oxygen dependant ; CPAP Obesity Hypoventilation with pulmonary hypertension? No Pulmonary Hypertension? No Asthma? Well controlled with ongoing daily meds GI GERD requiring medication within 30 days prior to surgery? Yes, High dose PPI Cholelithiasis H/O cholecystectomy with no symptoms at this time; Liver Disease* NAFLD (Nonalcoholic Fatty Liver Disease) Musculoskeletal Is the patient's ambulation limited most or all of the time? No Back Pain Sxs requiring non-narcotic meds Musculoskeletal Dz Non narcotic analgesia required Fibromyalgia NO History Cardiac Ischemic Heart Disease? Yes, No History History of Myocardial Infarction? No Previous PCI/PTCA? No Previous Cardiac Surgery? No Hypertension requiring medication? Yes. Number of Anti-Hypertensive medications: 1 Hyperlipidemia requiring medication? Yes CHF? Yes Vascular Vein thrombosis requiring therapy? No Venous Stasis? No Does the patient have an IVC filter? No Coagulopathy? No PVD/Stroke*; No Renal Currently requiring or on dialysis? No Renal insufficiency (GFR less than 60)? No Other Steroid/Immunosuppression for chronic condition? No Therapeutic anticoagulation? No Previous Obesity/Foregut surgery? No Stress urinary incontinence? NO History Pseudotumor Cerebri Headache? NO History of chronic headaches Reproductive Polycystic Ovarian Syndrome NO History Menstrual Irregularities Prior hysterectomy All other ROS negative. PHYSICAL EXAM: Highest weight within one year: 301 lbs; Date: 04/26/23 Blood pressure 112/66, pulse 88, weight 126.1 kg (278 lb), not currently ., Body mass index is 49.4 kg/m. General: Alert and appropriate. Well-appearing and in no distress Skin: Warm, dry, anicteric Lymphatics: No neither Axillary nor Supraclavicular nor Cervical nor Infraclavicular nor Inguinal nor Umbilical adenopathy. HEENT: PERRLA, EOMI, Sclera clear, anicteric, Oropharynx clear, no lesions, Neck supple with midline trachea, and Thyroid without masses Chest/Lungs: Clear Auscultation, No Wheezes, No dullness to percussions, and Chest Wall without masses Scar None Breast: Not examined Cardiovascular: Cor RRR and No murmurs Carotid Bruit NO Femoral Bruit NO Abdomen: Soft; Nontender; NO Distention; NO Organomegaly; NO Masses; Normal active bowel sounds Abdominal Wall Hernia NOT present Abdominal Skin/Pannus: No Sxs Scars include Midline Below umbilicus Rectal/Genital: Not examined Neurologic: No motor abnormalities, No sensory abnormalities, and Cranial Nerves intact Musculoskeletal: Normal ROM and Normal strength and tone Extremities: Warm and well perfused, No cyanosis, No clubbing, and Edema; 1+ pitting edema IMPRESSION: 1) Body mass index is 49.4 kg/m. 2) Obesity related comorbid conditions include HYPERTENSION HYPERLIPIDEMIA CHF LOWER EXTREMITY EDEMA OBSTRUCTIVE SLEEP APNEA ASTHMA GERD DJD EXTREMITY DJD BACK AND NECK PLAN: 1) Checklist from most recent Nutrition and Weight Management Clinic visit reviewed? Yes 2) Schedule the following... None 3) Patient Education Material Did patient receive HELP card? Yes 4) Treatment options including indications and alternatives (open or laparoscopic, gastric bypass, sleeve gastrectomy and malabsorptive procedures) have been discussed with the patient and or sales account representative who seem to understand and agree to proceed with the following surgical procedure(s) which has/have been scheduled for 03/12/2024 Laparoscopy, gastric restrictive procedure with gastric bypass and Malika en Y gastroenterosotomy, 150 cm or less Upper GI endoscopy including esophagus, stomach and or duodenum and jejunum, diagnostic, without collection of specimen Laparoscopy procedure, liver; Wedge Biopsy In the case of multiple procedures, secondary procedures are contingent on the safe and effective performance of the primary bariatric procedure. This will be determined by Dr. Ben Ochoa based on intraoperative findings and the progress of the case. A diagram of the procedure has been reviewed and copy given to this patient. Anticipated benefits include weight loss up to greater than 50 percent of excess body weight and significant improvement in most medical comorbidities. This patient seems to understand that our goal is to ameliorate their medical problems and not a specific total weight loss. The importance of long-term follow up with our Bariatric Surgical Clinic and High-Risk Obesity Clinic has been emphasized. This includes following up with our service in [place] at [facility] for any and all post operative complications and/or problems. We have clearly emphasized that failure to follow up with our Bariatric program for questions, diagnostictests, treatment and admissions may result in more serious complications or . Patient has been counseled as to the importance of lifetime abstinence from tobacco use as well as supplementation with MVI including Iron, Calcium and Vitamin B12 injections as necessary. 03/12/ Malika-en Y Gastric (RYGB): The patient has been apprised of the relative advantages and disadvantages of Laparoscopic Malika-en Y Gastric Bypass relative to other weight loss operations and the following surgical and post-operative risks have been discussed with the patient or the patient's sales account representative. No promises or guarantees have been offered the patient regarding weight loss or improvement/resolution of their comorbid conditions. All questions have been answered at this time: The patient must commit to long-term follow-up to avoid potential complications. Importance of avoidance of for the first year postoperatively if patient is of childbearing age. Failure to lose the amount of weight expected by the patient or physician (at least 50% of excess body weight). Weight regain. Nutritional deficiencies, acute or chronic causing either subtle or overt symptoms, including various neurological symptoms. Malnutrition potentially requiring IV nutrition or nutrition via a feeding tube. Changes in bowel function including diarrhea, constipation, or increased flatus. Food intolerances. Decreased appetite or difficulty taking normal amount of food. Dumping syndrome symptoms. Marginal ulceration including complications of bleeding, perforation, recalcitrance, recurrence, gastro-gastric or gastri-colic fistula which may require surgical revision. Stricture of any anastomosis that may require endoscopic treatment or reoperation; these may be acute or occur months to years post operatively. Early or late small bowel obstruction potentially requiring early or late surgical. intervention; causes can included adhesions, issues with the jejunojejunostomy (small bowel connection), internal hernias, and incisional hernias. Unexplained, persistent, potentially debilitating chronic nausea, vomiting, or abdominal pain possibly requiring mcc medications. Bleeding possible requiring transfusion of blood or blood products, possibly requiring reoperation. Injury to intra-abdominal structures (including but not limited to the spleen, liver, intestines, or blood vessels) due to trocar placement or surgical manipulation potentially requiring return to the operating room or open incision for repair or removal of injured organs or tissue. Enteric or anastomotic leaks. Bile leaks or bleeding from liver biopsy sites if applicable. Infections of: wound, urine, bloodstream, or pneumonia. Need for an Open (traditional) incision. Life threatening cardiac, thromboembolic, neurologic, or respiratory complications including but not limited to stroke, heart attack, abnormal heart rhythms, blood clot in the veins or lungs (pulmonary embolism), prolonged ventilator dependency, up to and including . Preoperative PROVEN CARE Pathway Instructions and Plan: 1) Diet: Patient instructed to begin high protein liquid diet 14 days preop. Patient should drink a20-24 oz sports drink the evening before surgery. 2) Medications: Follow instruction from preadmission testing visit and Nutrition and Weight Management. 3) Following prescriptions will be given at preop visit. Omeprazole Acetaminophen Zofran 4) Laila-operative multi-modal pain Control to include: Order APAP (Tylenol) 975mg PO once Celecoxib (Celebrex) 400mg PO once (Do not use if GFR less than 60, ASA Allergy, or if using Ketorolac) Gabapentin as indicated 5) Hold anticoagulants: N/A. 6) Hold all LISA Inhibitors and Angiotensin receptor blockers for 72 hours prior to surgery. Do NOT take for 72 hours before your surgery, Cozaar (losartan) 7) Hold all SGLT2 Inhibitors for 2 weeks prior to surgery. NOT Applicable (patient on NO SGLT2 inhibitors) 8) Hold all GLP-1 agonists for one week prior to surgery Do not take for 1 week before your surgery, Semaglutide (Ozempic, Rybelsus, Wegovy) 9) PreOp EKG? Yes age >45 10) Preop Cardiology evaluation; Cardiology consult for 3 or more risk factors; Age greater than 65and H/O CHF Indicated Consult completed and cleared 11) VTE Risk: Does the patient have any of the following contraindications to VTE Prophylaxis? No contraindications to VTE prophylaxis 12) DVT/PE Risk; The patient has each of the following risk factors: Surgery (anticipated equal to or greater than 2 hours), Obesity (BMI greater than 30), and Immobility (inability to ambulate 200 feet with or without assistance including LE paresis). How many VTE risk factors are present? 3 VTE Risk Factors (10 days extended VTE prophylaxis indicated) 13) If NO contraindications to VTE Prophylaxis then will plan on Enoxaparin dosed by pharmacy for 10 days post-op, Lovenox 30 mg prior to Surgery, and Knee High SCD's 14) Order Preop DVT Prophylaxis: Knee high teds, SCD Stockings with teds, and Enoxaparin 30 mg subcutaneously on arrival to hospital 15) Order Preop Antibiotics: Ancef 3 gm IV to be infused within one hour of incision time. 16) Is the patient on a Beta Zakiya? No 17) Order Perioperative Stress Dose Steroids: NO 18) Order Perioperative SBE prophylaxis (See Smart Set #[id number]): NO 19) Pacemaker clinic evaluation perioperatively: NO 20) Bring own CPAP/BiPAP mask and tubing from home if desired: YES 21) Clip and prep surgical site: NO 22) Preop orders placed in EPIC with H&P: NO 23) Pre-anesthesia orders placed: NO 24) Consent completed: YES; Date 12/07/2023 25) Patient instruction sheet completed: YES 26) Is the patient being considered for Ambulatory Surgery (Same Day Discharge)? No. 27) Postop Day #1 Discharge Candidate? Is the patient less than 60 years of age? NO Does the patient live within 90 minutes of the hospital? YES Is the patient committed to calling with any clinical problems and returning to [facility] if problems develop or they are advised by our staff? YES Patient has NO history of active cardiac problems or history of stent/CABG? YES Patient has NO history of renal insufficiency? YES Patient has NO active pulmonary problems and does NOT require home oxygen? NO Can the patient ambulate 200 feet without assistance? YES Patient has NO coagulopathy and is NOT on anticoagulants/antiplatelet medication? NO Patient has NO other medical problems or conditions that preclude consideration of Postop Day #1 Discharge? NO NO; Patient is NOT a Postop Day #1 Discharge Candidate at this time. Ben Ochoa MD, FACS, [facility] [employer] [facility] Minimally Invasive/ Bariatric Surgery Fellowship documented in this encounter Nursing Notes * Carlos Jimenes MED ASSIST - 12/07/2023 12:38 PM EDT Chief Complaint Patient presents with NEW PATIENT Evaluation of morbid obesity. Verified patient. documented in this encounter Plan of Treatment Upcoming Encounters Date Type Department Care Team (Late st Contact Info) Description 12/12/2023 12:40 PM EDT Office Visit Podiatry [facility] [address] [address] Samantha Borden DPM [address] [address] 01/02/2024 11:00 AM EDT Office Visit Nutrition & Weight Management, [facility] [address] [address] Sallie Marrero PA-C [address] [address] 02/07/2024 2:00 PM EST Office Visit Cardiology, [facility] [address] [address] [facility]ment[facility] Wang [facility]C [facility] [address] [address] 02/26/2024 2:00 PM EST Office Visit [facility], [place] [address] [place] [phone] Kennedy Brooks MD [address] [place] [address] 03/12/2024 7:15 AM EST Hospital Encounter OR [facility], OPERATING ROOM [facility], [facility] [address] [place] [phone] Ben Ochoa MD [address], [place] [phone] 03/12/2024 7:15 AM EST - 03/12/2024 11:13 AM EST Surgery OR [facility], OPERATING ROOM [facility], [facility] [address] [place] [phone] Ben Ochoa MD [address], [place] [phone] LAPAROSCOPIC GASTRIC RESTRICTIVE BYPASS MALIKA EN Y 04/25/2024 2:00 PM EST Nurse Only Ancillary Department, [place] [address] [place] [address] [place], Nurse [facility] [address] [place] [address] 06/11/2024 12:30 PM EDT Office Visit Sleep Disorders Ctr [facility] [address] [facility] [place] [phone] Iwona Yanez CRNP [address] [address] 07/03/2024 3:40 PM EDT Office Visit Nephrology, Kiley Gavin [address] [place] [address] Joaquin Shelley MD [address] [place] [address] Scheduled Procedures Name Priority Associated Diagnoses Date/Ti me LAPAROSCOPIC GASTRIC RESTRIC TIVE BYPASS MALIKA EN Y Morbid obesity with BMI of 45.0-49.9, adult ([facility]) 03/12/2024 7:15 AM EST ESOPHAGOGASTRODUODENOSCOPY ( EGD), FLEXIBLE, TRANSORAL, DIAGNOSTIC Morbid obesity with BMI of 45.0-49.9, adult ([facility]) 03/12/2024 7:15 AM EST UNLISTED LAPAROSCOPIC PROCEDURE LIVER Morbid obesity with BMI of 45.0-49.9, adult ([facility]) 03/12/2024 7:15 AM EST COLONOSCOPY FLEXIBLE [...] Monitoring 08/29/2024 08/30/2023 CKD HGB USE SMARTSET 03070 11/30/202411/30, 12/01/2023, 06/27/2023, Additional history exists CKD PHOS USE SMARTSET 53628 11/30/202411/05, 06/27/2023, 09/09/2020, Additional history exists DTap/Tdap [...] this encounter Medical Devices Implanted Type Area Oracle Application Architect Device Identifier Shelf Expiration Date Model / Serial / Lot Lens Intraoc 20.0 - [id number] - [id number] Implanted:Qty: 1 on 01/02/2020 by Guero Bell MD at OR [facility] Left: Eye [employer] 07/03/2024 [id number] / [id number] / [id number] Lens Intraoc 20.0 - [id number] - [id number] Implanted:Qty: 1 on 01/16/2020 by Guero Bell MD at OR [facility] Right: Eye [employer] 08/03/2024 [id number] / [id number] / [id number] documented as of this encounter Visit Diagnoses Diagnosis Morbid obesity with BMI of 45.0-49.9, adult (HCC)- Primary Morbid obesity Atherosclerosis of [place] coronary artery of [place] heart without angina pectoris Bipolar II disorder (HCC) Other bipolar disorders Chronic diastolic heart failure (HCC) Chronic diastolic heart failure Chronic kidney disease, stage 3b (HCC) Dyslipidemia, goal LDL below 70 Other and unspecified hyperlipidemia Gastroesophageal reflux disease without esophagitis Esophageal reflux HTN, goal below 140/90 Unspecified essential hypertension Major depressive disorder, recurrent, moderate (HCC) Major depressive disorder, recurrent episode, moderate AMIRA (obstructive sleep apnea) Obstructive sleep apnea (adult) (pediatric) PAD (peripheral artery disease) (HCC) Peripheral vascular disease, unspecified Prediabetes Other abnormal glucose Vitamin D deficiency Unspecified vitamin D deficiency Morbid obesity with BMI of 45.0-49.9, adult (HCC)- Primary Morbid obesity Morbid obesity with BMI of 45.0-49.9, adult [...] Discussed due to patient's condition Care Teams Reimbursement Spec Relationship Specialty Start Date End Date Kennedy Brooks MD [address] [place] [address] PCP - General Family Medicine 04/23/18 documented as of this encounter
--- OUTSIDE RECORDS SUMMARY | 2024-01-17 10:32 | External Medical Summary | Summary of Care ---
Author Name Unknown Organization [facility] [address] [address] Phone [phone] Care Team Providers Care Police Records Clerk Name Role Phone Kennedy Brooks MD Primary Care Provider [phone] Reason for Visit * Reason Comments Appointment The pt stated she is here to discuss her Wegovy because "lately when ever I take it my stomach gets upset and I shake all over." She said she took a few weeks off from the medication and just recently started taking it again. Encounter Details Date Type Department Care Team (Late st Contact Info) Description 01/02/2024 11:00 AM EDT Office Visit Nutrition & Weight Management, [facility] [address] [facility] [facility] [place] [address] Sallie Marrero PA-C [address] [facility] [place] [address] Morbid obesity due to excess calories (HCC)*; Abnormal weight gain Allergies Active Allergy Reactions Criticality Noted Date Comments Paroxetine Hydrochloride Hives 06/07/2007 documented as of this encounter (statuses as of 01/02/2024) Medications Medication Sig Dispensed Refills Start Date End Date Status VITAMIN D 1000 UNIT PO CAPS Take 1 Capsule by mouth in the morning and 1 Capsule before bedtime. 30 Cap 11 2 Active aspirin enteric coated 81 MG TBECIndications:Pre -op testing,Abnormal nuclear stress test,HUGHES (dyspnea on exertion) Take 1 Tablet by mouth at bedtime. 10/04/201 8 Active Diclofenac Sodium 1 % gelIndications:CMC [...] morning. 60 Each 5 3 Active Nystatin 800853 UNIT/GM External Powder (Nystop) Apply topically to [...] EVERY DAY 90 Tablet 2 4 Active Levocetirizine Dihydrochloride 5 MG Oral Tablet every evening. 4 Active QUEtiapine Fumarate 300 MG Oral Tablet (SEROquel) TAKE 1 TABLET BY MOUTH EVERYDAY AT BEDTIME 4 Active Wegovy 0.5 MG/0.5ML Subcutaneous Solution Auto-injector (Semaglutide-Weight Management) Inject 0.5 mg under the skin once a week. 2 mL 3 4 Active QUEtiapine Fumarate 200 MG Oral [...] as of this encounter (statuses as of 01/02/2024) Active Problems Problem Noted Date Diagnosed Date [...] as of this encounter (statuses as of 01/02/2024) Resolved Problems Problem Noted Date Diagnosed Date [...] as of this encounter (statuses as of 01/02/2024) Immunizations Name Administration Dates Next Due COVID-19 mRNA, LNP-s, No Pre serve, 2-Dose Series ([employer]) 01/08/2022,05/06/2021 COVID-19, MRNA-LNP, 23-24, P F, 52 [...] Sign Reading Time Taken Comments Blood Pressure 114/64 01/02/2024 11:00 AM EDT Pulse 80 01/02/2024 11:00 AM EDT Temperature 36.6 C (97.9 F) 01/02/2024 1 1:00 AM EDT Respiratory Rate - - Oxygen Saturation 93% 01/02/2024 11: 00 AM EDT Inhaled Oxygen Concentration - - Weight 122.6 kg (270 lb 4.8 oz) 024 11:00 AM EDT Height 159.8 cm (5' 2.9") 01/02/2024 11 :00 AM EDT Body Mass Index 48.03 01/02/2024 11:00 AM EDT documented in this encounter Patient Instructions * Patient Instructions* Sallie Marrero PA-C - 01/02/2024 11:32 AM EDT Schedule 7-10 day post op in clinic appointment with RD and provider Schedule 1 month post op video with RD and provider Schedule 2 month post op in clinic with RD and provider for BOLD (40min) Surgery is 03/12/24 documented in this encounter Progress Notes * Sallie Marrero PA-C - 01/02/2024 11:20 AM EDT Follow up Nursing Notes: Anastacio Brown LPN 01/02/24 1102 Signed Chief Complaint Patient presents with Appointment The pt stated she is here to discuss her Wegovy because "lately when ever I take it my stomach getsupset and I shake all over." She said she took a few weeks off from the medication and just recently started taking it again. Paige Hendricks is a pleasant 68 year old year old female seen in the [facility] for an initial evaluation for bariatric surgery. Patient is interested in Gastric Bypass HPI Patient is receiving ongoing education regarding dietary and physical modifications for weight loss. - Initial clinic visit 04/26/2023 Weight 301 lbs Height 65" Body mass index is 50.19 kg/m. - Today's weight: 270 lbs - Total weight loss of -31 lbs since initial weight in clinic Wt Readings from Last 6 Encounters: 01/02/24 122.6 kg (270 lb 4.8 oz) 12/07/23 126.1 kg (278 lb) 12/01/23 125.8 kg (277 lb 6.4 oz) 11/27/23 122.9 kg (271 lb) 10/11/23 126.6 kg (279 lb) 10/09/23 126.9 kg (279 lb 12.8 oz) 01/02/2024 -fell twice both times her foot gave out or was asleep. She denies syncope, dizziness, lightheadedness -gets upset stomach and shaky with wegovy-- but has not had any of those symptoms over the last 2 weeks -stopped for 2 weeks and then started again 11/23/23 -upgraded to green rdn -stopped wegovy, feels better off it 10/09/23 -light status, still yellow from RD -No show for surgery class, will get her rescheduled -Green from psych 08/31/23 06/28/2023 BME -not drinking with a straw -working on getting in protein -HB eggs 06/06/23 -Behavior class -increasing protein, grains, dairy -working on smaller portions -not using straw -added exercise - walking around the driveway 05/24/23 -Nutrition class -called about the shots-- [phone] (phone) [phone] (fax) Visit 04/26/23 The patient suffers from Morbid obesity Past Medical History Glaucoma No Hypertension: Yes, multiple medications CAD: No Congestive heart failure Yes Dyslipidemia: Yes, on treatment Lipid Panel Results: Results for orders placed or performed in [...] <=159 mg/dL LDL Cholesterol 51 <=129 mg/dL DVT/PE, clotting disorder: No Stroke: No Seizures: No Sleep Apnea: Yes, on CPAP Asthma: Yes COPD: No Patient denies personal or family history of medullary thyroid carcinoma. Patient denies personal or family history of multiple endocrine neoplasia syndrome type II Patient denies personal history of pancreatitis Fatty Liver: no Diabetes: No Hemoglobin A1C last 3 results: Lab Results Component Value Date/Time HEMOGLOBIN A1C - [facility] 5.9 (H) 06/27/2023 02:59 PM HEMOGLOBIN A1C - [facility] 5.7 11/18/2010 11:07 AM Insulin Resistance: No PCOS: No GERD: Yes: Requiring medications: Yes History of nephrolithiasis: No. 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 Fibromyalgia Bipolar II disorder (HCC) Dyslipidemia, goal LDL below 70 Other schizophrenia (HCC) Chronic diastolic heart failure (HCC) Hypertensive heart and kidney disease with chronic diastolic congestive heart failure and stage 3b chronic kidney disease (HCC) Mild persistent asthma without complication Chronic kidney disease, stage 3b (HCC) Lung nodule Major depressive disorder, recurrent, moderate (HCC) PAD (peripheral artery disease) (HCC) AMIRA (obstructive sleep apnea) Prediabetes Aortic root enlargement (HCC) Morbid obesity with BMI of 45.0-49.9, adult ([facility]) Atherosclerosis of coronary artery Food insecurity Current Outpatient Medications Medication Sig Dispense Refill [...] mg take with food. 30 Cap 5 triamcinolone acetonide (ARISTOCORT) 0.1 [...] mouth in the morning. 60 Each 5 Nystatin 546749 UNIT/GM External Powder (Nystop) Apply topically to affected area 3 times a day. (Patient taking differently: Apply topically to affected area as needed.) 60 g 2 tiZANidine HCl 4 MG Oral Tablet (Zanaflex) Take 1 Tablet by mouth every 12 hours as needed for Muscle spasms. 40 Tablet 0 Gabapentin 400 MG Oral Capsule (Neurontin) Take [...] THING IN THE MORNING 90 Tablet 3 Spironolactone 25 MG Oral Tablet (Aldactone) TAKE [...] 1 Tablet before bedtime. 14 Tablet 0 Losartan Potassium 25 MG Oral Tablet (Cozaar) TAKE ONE TABLET BY MOUTH EVERY DAY 90 Tablet 2 Levocetirizine Dihydrochloride 5 MG Oral Tablet every evening. QUEtiapine Fumarate 300 MG Oral Tablet (SEROquel) TAKE 1 TABLET BY MOUTH EVERYDAY AT BEDTIME buPROPion HCl ER (SR) 100 MG Oral Tablet Extended Release 12 Hour (Wellbutrin SR) Take 1 Tablet by mouth in the morning. Wegovy 0.5 MG/0.5ML Subcutaneous Solution Auto-injector (Semaglutide-Weight Management) Inject 0.5 mg under the skin once a week for 28 days. 2 mL 0 No current facility-administered medications for this visit. Past Surgical History: Procedure Laterality Date COLONOSCOPY, DIAGNOSTIC (RECTUM) 05/09/2018 adenomatous polyp, repeat 5 yrs/COLONOSCOPY FLEXIBLE PROXIMAL DIAGNOSTIC performed by Edgardo Messer MD at ENDOSCOPY [facility] DENTAL SURGERY PROCEDURE NEC Dental Surgery Procedure EGD, FLEXIBLE, DIAGNOSTIC N/A 10/11/2023 biopsies show mild gastritis/ESOPHAGOGASTRODUODENOSCOPY (EGD), FLEXIBLE, TRANSORAL, DIAGNOSTIC performed by Jan Haynes DO at OR [facility] HAND/FINGER SURGERY NEC 06/01/2011 right hand--Dr. Fuentes INJECT DX/THER SUBSTANCE INTERLAMINAR CERVICAL/THORACIC W IMAGE GUIDE 04/07/2022 INJECTION SPINE LUMBAR CERVICAL OR THORACIC performed by Ezra Harris DO at OR [facility] INJECT DX/THER SUBSTANCE INTERLAMINAR LUMBAR/SACRAL W IMAGE GUIDE 12/06/2021 INJECTION SPINE LUMBAR OR SACRAL performed by Ezra Harris DO at OR [facility] INJECT DX/THER SUBSTANCE INTERLAMINAR LUMBAR/SACRAL W IMAGE GUIDE 10/10/2022 INJECTION SPINE LUMBAR OR SACRAL performed by Ezra Harris DO at OR [facility] LAP;W/HYSTERECTOMY 2001 Hysterectomy Complete LAPAROSCOPY; CHOLECYSTECTOMY 2001 Cholecystectomy, Laproscopic MISCELLANEOUS ORDER ([facility] ONLY) colonoscopy 2012 [place] EXCISION OF LESION OF EYELID,(EXCEPT CHALAZION) WITHOUT CLOSURE OR WITH SIMPLE DIRECT CLOSURE. Bilateral 06/22/2022 Dr. Braun-excision both eyes REMOVAL OF EYELID LESION Bilateral 11/09/2022 Dr. Braun-excision of lesion OU REMOVE CATARACT, INSERT LENS PROSTH Left 01/02/2020 leftEXTRACAPSULAR CATARACT REMOVAL WITH INTRAOCULAR LENS performed by Guero Bell MD [facility] REMOVE CATARACT, INSERT LENS PROSTH Right 01/16/2020 rightEXTRACAPSULAR CATARACT REMOVAL WITH INTRAOCULAR LENS performed by Guero Bell MD at OR [facility] UMBIL HERNIA REPAIR (REDUCIBLE) AGE 5+YR 2001 Umbilical Hernia Repair, age 7+ yr Review of patient's allergies indicates: Allergen Reactions Paxil [Paroxetine Hydrochloride] Hives Psychosocial Lives at home with grandson. They are supportive of the patient in the surgery process. Adjustment: Issues with No, no Issues with stress management Depression: History of hospitalization 1.5 years ago Other Confirmed Mental Health Diagnosis: no history Alcohol Use: None Tobacco Use: Never Substance Use: None REVIEW OF SYSTEMS: Review of Systems Gastrointestinal: Negative for abdominal pain, diarrhea, nausea and vomiting. Psychiatric/Behavioral: Negative for dysphoric mood. Menstrual Cycle: Post menopausal PHYSICAL EXAMINATION: BP 114/64 | Pulse 80 | Temp 36.6 C (97.9 F) | Ht 1.598 m (5' 2.9") | Wt 122.6 kg (270 lb 4.8 oz) | SpO2 93% | BMI 48.03 kg/m | BSA 2.33 m Physical Exam Vitals and nursing note reviewed. Constitutional: Appearance: Normal appearance. HENT: Head: Normocephalic and atraumatic. Cardiovascular: Normal rate. Pulmonary: Effort: Pulmonary effort is normal. No respiratory distress. Neurological: Mental Status: Alert and oriented to person, place, and time. Psychiatric: Mood and Affect: Mood normal. Paige was seen today for weight management. Diagnoses and all orders for this visit: Morbid obesity due to excess calories ([facility]) Scheduled for surgery 03/12/24 Will have med rec 02/21/24 Non-toxic multinodular goiter PAD (peripheral artery disease) ([facility]) Continue wegovy-- if she has shaking, stomach upset-- she should stop the wegovy HTN, goal below 140/90 Continue current regimen BP 114/64 | Pulse 80 | Temp 36.6 C (97.9 F) | Ht 1.598 m (5' 2.9") | Wt 122.6 kg (270 lb 4.8 oz) | SpO2 93% | BMI 48.03 kg/m | BSA 2.33 m Non-toxic multinodular goiter Gastroesophageal reflux disease without esophagitis -continue PPI Plan for RYGB Hypertensive heart and kidney disease with chronic diastolic congestive heart failure and stage 3b chronic kidney disease ([facility]) Saw cardiology. Note from 11/10/23: Dobutamine stress echo results reviewed Normal LVEF No inducible ischemia. No wall motion abnormalities No significant valvular heart disease Mildly enlarged aortic root at 4.0 cm and ascending aorta measuring 4.3 cm. Will monitor. No further cardiac testing warranted prior to potential bariatric surgery Acquired autoimmune hypothyroidism Continue levothyroxine Bipolar II disorder ([facility]) Switched to wellbutrin Sees Rehana Ramires Dyslipidemia, goal LDL below 70 Continue lipitor Other schizophrenia ([facility]) Reports stable currently Last inpatient admission she reports 1.5 years ago to [facility] Jason AMIRA (obstructive sleep apnea) Continue cpap Paige Hendricks is encouraged to achieve a modest weight loss via diet, exercise, behavior modification, and pharmacotherapy to facilitate metabolic and physiological parameters. The patient will return to the Weight Management Clinic 02/21/24 as scheduled and then for post op appointments. She was instructed to call the clinic in the meantime with any questions or concerns. I spent a total of 35 minutes on the date of service in preparation, delivery, and documentation ofthe care provided to Paige Hendricks excluding any time spent in the performance of separately billed services.This included but was no limited to providing counseling about the benefits of weight loss, about their nutritional status, detailed explanations about calorie count, types of nutrients to choose, and composition of the meals. Motivational interview provided in order to prepare thepatient to achieve future goals. Sallie Marrero PA-C, [facility] Nutrition and Weight Management [facility]) documented in this encounter Nursing Notes * Anastacio Brown LPN - 01/02/2024 11:00 AM EDT Chief Complaint Patient presents with Appointment The pt stated she is here to discuss her Wegovy because "lately when ever I take it my stomach getsupset and I shake all over." She said she took a few weeks off from the medication and just recently started taking it again. documented in this encounter Plan of Treatment Upcoming Encounters Date Type Department Care Team (Latest Contact Info) Description 02/07/2024 10:15 AM EST Office Visit General Surgery, [address] [address] Ben Ochoa MD [address] [place] [address] 02/07/2024 12:45 PM EST Pre-Admission Testing Pre Surgery [address] [address] [place] [address] [place] [address] 02/07/2024 2:00 PM EST Office Visit Cardiology, [facility] [address] [facility] [place] [address] Clementine Wang PA-C [address] [place] [address] 02/15/2024 12:40 PM EST Office Visit Podiatry [facility] [address] [facility] [place] [address] Samantha Borden DPM [address] [place] [address] 02/21/2024 9:00 AM EST [facility] [address] [place] [address] Emi Chandra CRNP [address] [place] [address] 02/26/2024 2:00 PM EST Office Visit [facility] [address] [place] [address] Kennedy Brooks MD [address] [place], [place] [id number] 03/12/2024 7:15 AM EST Hospital Encounter OR [facility], OPERATING ROOM [facility] [address] [place] [phone] Ben Ochoa MD [address] [place] [address] 03/12/2024 7:15 AM EST - 03/12/2024 11:13 AM EST Surgery OR [facility], OPERATING ROOM [facility], [facility] [address] [place] [phone] Ben Ochoa MD [address] [place], [place] [address] LAPAROSCOPIC GASTRIC RESTRICTIVE BYPASS MALIKA EN Y 03/28/2024 11:30 AM EST Office Visit General Surgery, [facility] [address] [facility] [place] [address] Ben Ochoa MD [address] [place] [address] 04/25/2024 2:00 PM EST Nurse Only Ancillary Department, [place] [address] [place] [address] Donna, Nurse [facility] [address] [place] [address] 06/11/2024 12:30 PM EDT [facility] [address] [place] [address] Iwona Yanez CRNP [address] [facility] [place] [address] 07/03/2024 3:40 PM EDT Office Visit Nephrology, [facility] [address] [place] [address] Joaquin Shelley MD [address] [place] [address] Scheduled Procedures Name Priority Associated Diagnoses Date/Ti me LAPAROSCOPIC GASTRIC RESTRIC TIVE BYPASS MALIKA EN Y Morbid obesity with BMI of 45.0-49.9, adult ([facility]) 03/12/2024 7:15 AM EST ESOPHAGOGASTRODUODENOSCOPY ( EGD), FLEXIBLE, TRANSORAL, DIAGNOSTIC Morbid obesity with BMI of 45.0-49.9, adult ([facility]) 03/12/2024 7:15 AM EST UNLISTED LAPAROSCOPIC PROCEDURE LIVER Morbid obesity with BMI of 45.0-49.9, adult ([facility]) 03/12/2024 7:15 AM EST COLONOSCOPY FLEXIBLE [...] Monitoring 08/29/2024 08/30/2023 CKD HGB USE SMARTSET 29289 11/30/202411/30, 12/01/2023, 06/27/2023, Additional history exists CKD PHOS USE SMARTSET 87799 11/30/202411/05, 06/27/2023, 09/09/2020, Additional history exists DTap/Tdap [...] this encounter Medical Devices Implanted Type Area Director Career Device Identifier Shelf Expiration Date Model / Serial / Lot Lens Intraoc 20.0 - [id number] - [id number] Implanted:Qty: 1 on 01/02/2020 by Guero Bell MD at OR [facility] Left: Eye [employer] 07/03/2024 [id number] / [id number] / [id number] Lens Intraoc 20.0 - [id number] - [id number] Implanted:Qty: 1 on 01/16/2020 by Guero Bell MD at OR [facility] Right: Eye [employer] 08/03/2024 [id number] / [id number] / [id number] documented as of this encounter Visit Diagnoses Diagnosis Morbid obesity with BMI of 45.0-49.9, adult (HCC)- Primary Morbid obesity Morbid obesity due to excess calories (HCC)- Primary Abnormal weight gain Morbid obesity with BMI of 45.0-49.9, adult [...] Discussed due to patient's condition Care Teams Police Records Clerk Relationship Specialty Start Date End Date Kennedy Brooks MD [address] [place] [address] PCP - General Family Medicine 04/23/18 documented as of this encounter
--- OUTSIDE RECORDS SUMMARY | 2024-01-17 10:33 | External Medical Summary | Summary of Care ---
Author Name Unknown Organization [facility] Address [address] [place] [address] Phone [phone] Care Team Providers Care Director Of Market Research Name Role Phone Kennedy Brooks MD Primary Care Provider [phone] Reason for Visit * Reason Comments Return Visit Chronic Kidney Disease (CKD) Hypertension Encounter Details Date Type Department Care Team (Late st Contact Info) Description 12/01/2023 11:40 AM EDT Office Visit Nephrology, [facility] [address] [place] [address] Joaquin Shelley MD [address] [facility] [place] [address] Stage 3b chronic kidney disease (HCC)*; Chronic diastolic heart failure (HCC); HTN, goal below 130/80 Allergies Active Allergy Reactions Criticality Noted Date Comments Paroxetine Hydrochloride Hives 06/07/2007 documented as of this encounter (statuses as of 12/01/2023) Medications Medication Sig Dispensed Refills Start Date [...] the morning. 60 Each 5 3 Active Losartan Potassium 25 MG Oral Tablet (Cozaar)Indications :HTN, goal below 140/90 TAKE ONE TABLET BY MOUTH EVERY DAY 90 Tablet 2 4 Active Additional Information Patient taking differently: 25 mg Oral Daily(AM), Reported on 12/01/2023 QUEtiapine Fumarate 200 MG Oral Tablet (SEROquel) Take 1 Tablet by mouth at bedtime. 90 Tablet 3 4 Active Nystatin 146912 UNIT/GM External Powder (Nystop) Apply topically to [...] in Morning 90 Tablet 3 4 Active Torsemide 20 MG Oral Tablet (Demadex)Indication s:Chronic diastolic heart failure (HCC) Take 1 Tablet by mouth daily AND 0.5 Tablets daily at noon. 135 Tablet 3 4 12/01/19 24 Discontinued documented as of this encounter (statuses as of 12/01/2023) Active Problems Problem Noted Date Diagnosed Date [...] as of this encounter (statuses as of 12/01/2023) Resolved Problems Problem Noted Date Diagnosed Date [...] as of this encounter (statuses as of 12/01/2023) Immunizations Name Administration Dates Next Due COVID-19 mRNA, LNP-s, No Pre serve, 2-Dose Series (LynxFit for [employer]) 01/08/2022,05/06/2021 COVID-19, MRNA-LNP, 23-24, P F, 52 [...] Sign Reading Time Taken Comments Blood Pressure 95/56 12/01/2023 11:56 AM EDT Pulse 88 12/01/2023 11:56 AM EDT Temperature 36.8 C (98.3 F) 12/01/2023 1 1:53 AM EDT Respiratory Rate 20 12/01/2023 11:5 3 AM EDT Oxygen Saturation 93% 12/01/2023 11: 53 AM EDT Inhaled Oxygen Concentration - - Weight 125.8 kg (277 lb 6.4 oz) 024 11:53 AM EDT Height - - Body Mass Index 49.3 11/27/2023 10:12 AM EDT documented in this encounter Progress Notes * Joaquin Shelley MD - 12/01/2023 11:55 AM EDT Chief Complaint Patient presents with Return Visit Chronic Kidney Disease (CKD) Hypertension SUBJECTIVE: HPI:Patient is a 68 year old female with hypertension, hypothyroidism, osteoarthritis, fibromyalgia, depression, and gastroesophageal reflux. She had cardiac catheterization December 2017 and was found to have no significant obstructive coronary disease. She was taking etodolac but this was stopped in for by [address] Brooks. She complains of SOB especially when walking up the stairs but occasionally even at rest. She has leg swelling. Her BP is controlled, does not check. She gets dizzy at times when she gets up. She denies any urinary symptoms. No kidney stones. Since last visit ----had fall and injured but no fracture. -Denies any recent hospitalizations, procedures or infections.Lives alone - grandson moved out but he does visit her frequently. Blood pressure is running low and she feels lightheaded. She was briefly on Mounjaro but she stopped taking it because she felt lightheaded while she was taking it NSAID: No Renal Stone: No Herbal Medication: Vit d HISTORY: Current Outpatient Medications Medication Sig Dispense Refill VITAMIN D 1000 UNIT PO CAPS Take 1 Capsule by mouth in the morning and 1 Capsule before bedtime. 30Cap 11 aspirin enteric coated 81 MG TBEC Take 1 Tablet by mouth at bedtime. Diclofenac Sodium 1 % gel Place 2 g topically on the skin 4 times a day as needed (arthritis). 100 g 11 triamcinolone acetonide (ARISTOCORT) 0.1 % cream Apply [...] mouth at bedtime. 90 Tablet 3 Nystatin 804650 UNIT/GM External Powder (Nystop) Apply topically to affected area 3 times a day. (Patient taking differently: Apply topically to affected area as needed.) 60 g 2 Torsemide 20 MG Oral Tablet (Demadex) Take 1 Tablet by mouth daily AND 0.5 Tablets daily at noon. 135 Tablet 3 buPROPion HCl ER (SR) 100 MG Oral [...] 1 Capsule by mouth in the morning. venlafaxine XR (EFFEXOR XR) 150 MG CP24 Take 1 Capsule by mouth in the morning. Take with 37.5 mg take with food. (Patient not taking: Reported on 12/01/2023) 30 Cap 5 tiZANidine HCl 4 MG Oral Tablet (Zanaflex) Take 1 Tablet by mouth every 12 hours as needed for Muscle spasms. (Patient not taking: Reported on 12/01/2023) 40 Tablet 0 Wegovy 0.5 MG/0.5ML Subcutaneous Solution Auto-injector (Semaglutide-Weight Management) Inject 0.5 mg under the skin once a week for 28 days. 2 mL 0 No current facility-administered medications for this visit. Review of patient's allergies indicates: Allergen Reactions Paxil [Paroxetine Hydrochloride] Hives Past Medical History: Diagnosis Date Acquired absence of both cervix and uterus 2001 ovaries removed Depressive disorder, not elsewhere classified Fibromyalgia GERD (gastroesophageal reflux disease) HTN, goal below 130/80 Hypothyroidism LOC PRIM OSTEOARTH-HAND - [facility] grade 1-2 10/22/2010 duplicate Osteoarthrosis involving, or with mention of more than one site, but not specified as generalized, site unspecified(185.80) Sleep apnea, obstructive Past Surgical History: Procedure Laterality Date COLONOSCOPY, DIAGNOSTIC (RECTUM) 05/09/2018 adenomatous polyp, repeat 5 yrs/COLONOSCOPY FLEXIBLE PROXIMAL DIAGNOSTIC performed by Edgardo Messer MD at ENDOSCOPY [facility] DENTAL SURGERY PROCEDURE NEC Dental Surgery Procedure EGD, FLEXIBLE, DIAGNOSTIC N/A 10/11/2023 biopsies show mild gastritis/ESOPHAGOGASTRODUODENOSCOPY (EGD), FLEXIBLE, TRANSORAL, DIAGNOSTIC performed by Jan Haynes DO at OR [facility] HAND/FINGER SURGERY NEC 06/01/2011 right hand--Dr. Fuentes INJECT DX/THER SUBSTANCE INTERLAMINAR CERVICAL/THORACIC W IMAGE GUIDE 04/07/2022 INJECTION SPINE LUMBAR CERVICAL OR THORACIC performed by Ezra Harris DO at OR [facility] INJECT DX/THER SUBSTANCE INTERLAMINAR LUMBAR/SACRAL W IMAGE GUIDE 12/06/2021 INJECTION SPINE LUMBAR OR SACRAL performed by Ezra Harris DO at OR [facility] INJECT DX/THER SUBSTANCE INTERLAMINAR LUMBAR/SACRAL W IMAGE GUIDE 10/10/2022 INJECTION SPINE LUMBAR OR SACRAL performed by Ezra Harris DO at OR [facility] LAP;W/HYSTERECTOMY 2001 Hysterectomy Complete LAPAROSCOPY; CHOLECYSTECTOMY 2001 Cholecystectomy, Laproscopic MISCELLANEOUS ORDER ([facility] ONLY) colonoscopy 2011 [place] EXCISION OF LESION OF EYELID,(EXCEPT CHALAZION) WITHOUT CLOSURE OR WITH SIMPLE DIRECT CLOSURE. Bilateral 06/22/2022 Dr. Braun-excision both eyes REMOVAL OF EYELID LESION Bilateral 11/09/2022 Dr. Braun-excision of lesion OU REMOVE CATARACT, INSERT LENS PROSTH Left 01/02/2020 leftEXTRACAPSULAR CATARACT REMOVAL WITH INTRAOCULAR LENS performed by Guero Bell MD at[facility] REMOVE CATARACT, INSERT LENS PROSTH Right 01/16/2020 rightEXTRACAPSULAR CATARACT REMOVAL WITH INTRAOCULAR LENS performed by Guero Bell MD at OR [facility] UMBIL HERNIA REPAIR (REDUCIBLE) AGE 5+YR 2001 Umbilical Hernia Repair, age 5+ yr Family History Problem Relation Name Age of Onset Cancer Mother ovarian, liver Cancer Father lung, esophageal, liver ca Heart Disorder Father Heart disease Sister Stents Social History Socioeconomic History Marital status: Spouse name: Not on file Number of children: 2 Years of education: Not on file Highest education level: Not on file Occupational History 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 No flank pain Musculoskeletal: No muscle/joint pains , +edema Skin: No itching All other systems were reviewed and were negative. OBJECTIVE: BP 95/56 (BP Site: Right Arm, BP Position: Standing, BP Cuff Size: Large) | Pulse 88 | Temp 36.8 C (98.3 F) (Tympanic) | Resp 20 | Wt 125.8 kg (277 lb 6.4 oz) | SpO2 93% | BMI 49.30 kg/m | BSA 2.36 m Wt Readings from Last 1 Encounters: 12/01/23 125.8 kg (277 lb 6.4 oz) General appearance: alert, no apparent distress. HEAD: Normocephalic, No masses, lesions, tenderness Respiratory: clear to auscultation, no rhonchi, no wheezes, and no crackles Heart: regular rate and regular rhythm Abdomen: abdomen soft, non-tender, and no CVA tenderness EXTREMITIES: + edema related with obesity Skin: skin color, texture, turgor are normal NEURO: alert & oriented x 3 with fluent speech, no focal motor/sensory deficits No tremor Patient is a reliable historian of events Last 4 BP Readings: BP Readings from Last 4 Encounters: 12/01/23 95/56 11/27/23 140/80 10/11/23 134/99 10/09/23 108/64 Last 3 Weights: Wt Readings from Last 3 Encounters: 12/01/23 125.8 kg (277 lb 6.4 oz) 11/27/23 122.9 kg (271 lb) 10/11/23 126.6 kg (279 lb) Estimated body mass index is 49.3 kg/m as calculated from the following: Height as of 11/27/23: 1.598 m (5' 2.9"). Weight as of this encounter: 125.8 kg (277 lb 6.4 oz). LABS: MRI KIDNEY W WO CONTRAST08/08/2022 3:11 pm HISTORY ? R kidney lesion TECHNIQUE Multisequence multiplanar MRI of the abdomen was performed before and after administration of intravenous contrast. Contrast: 13.7 mL Gadavist COMPARISON Abdominal ultrasound dated 06/14/2022, CT of the chest dated 06/21/2021, and CT of the abdomen and pelvis dated 12/22/2009 FINDINGS LOWER CHEST: Within normal limits. LIVER: Normal size and smooth contour. No evidence of hepatic steatosis. Stable size of a 2.2 cm peripherally calcified lesion superiorly in segment 8, which does not demonstrate enhancement and likely represents a calcified cyst from prior inflammation or infection. Subcentimeter simple cysts in the left hepatic lobe. No suspicious lesion. BILE DUCTS: Normal size and contour. No filling defects GALLBLADDER: Absent. PANCREAS: Within normal limits. No pancreatic duct dilatation. SPLEEN: Within normal limits. ADRENALS: Within normal limits. KIDNEYS: Stable size of a 2.3 cm exophytic peripherally calcified lesion in the interpolar region of the right kidney. This lesion was not calcified on the CT from 2009, but is stable in size since that study and is therefore benign. The lesion is composed of T1 hypointense and T2 hyperintense fluid and is consistent with a cyst. Smooth progressive peripheral enhancement likely represents fibrosis. No solid component or septation. No hydronephrosis. BOWEL: Decompressed stomach. Normal caliber of the visualized small and large bowel. No wall thickening. LYMPH NODES: No enlarged lymph nodes. VESSELS: Within normal limits. PERITONEUM: No ascites or fluid collection. RETROPERITONEUM: Within normal limits. ABDOMINAL WALL: Within normal limits. BONES: No suspicious lesion. IMPRESSION IMPRESSION Benign peripherally calcified cyst in the interpolar right kidney, which is stable in size since 2009. There is no suspicious renal lesion. IMAGING: Latest Reference Range & Units 05/27/22 14:20 06/07/22 15:11 06/14/22 10:23 07/27/22 13:15 08/31/22 13:26 09/26/22 13:54 Sodium 135 - 146 mmol/L 143 140 144 143 142 143 Potassium 3.5 - 5.1 mmol/L 5.2 (H) 3.6 4.3 4.4 4.4 3.9 Chloride 98 - 107 mmol/L 103 99 106 103 105 104 CO2 22 - 32 mmol/L 29 33 (H) 32 30 27 25 BUN 6 - 20 mg/dL 24 (H) 29 (H) 17 19 17 21 (H) Creatinine 0.5 - 1.0 mg/dL 1.8 (H) 1.8 (H) 1.5 (H) 1.4 (H) 1.4 (H) 1.5 (H) Estimated Glomerular Filtration Rate >=60 mL/min 30 (L) 32 (L) 39 (L) 44 (L) 42 (L) 40 (L) Anion Gap 7 - 15 mmol/L 11 8 6 (L) 10 10 14 Glucose 70 - 120 mg/dL 100 126 (H) 91 95 95 105 Calcium 8.4 - 10.2 mg/dL 9.5 9.2 8.9 9.0 8.9 9.3 (H): Data is abnormally high (L): Data is abnormally low Latest Reference Range & Units 11/09/16 08:57 11/13/17 11:38 03/24/20 11:57 05/20/21 13:48 Albumin / Creatinine Ratio, Urine <30 mg/g Creat 8 <3 <6 ALBUMIN / CREATININE RATIO, URINE Rpt Rpt Rpt PROTEIN/CREAT RATIO <150 mg/g 125 Rpt: View report in Results Review for more information ASSESSMENT/PLAN: Chronic kidney disease, stage 3b (HCC) (Primary) The patient's most recent labs (from ) were reviewed and the assessment/plan is as follows: Patient with the CKD stage 3 without proteinuria likely due to longstanding hypertension. I do believe there is room to lower the dose of the diuretics. Chemistries look good. Risk of ESRD is low. She is having low blood pressure with lightheadedness including her episode of fall in October 2023.Given this will decrease the dose of torsemide to once daily. Labs as below to be done today. We will be checking her hemoglobin for anemia of CKD as well as renal osteodystrophy labs and the renal panel as well as electrolytes. Medications will be adjusted after the results of this test available. - CBC WITH WBC DIFFERENTIAL; Future; Expected date: 12/01/2023 - PTH; Future; Expected date: 12/01/2023 - PROTEIN/ CREATININE RATIO, URINE; Future; Expected date: 12/01/2023 - RENAL FUNCTION PANEL; Future; Expected date: 12/01/2023 - URINALYSIS WITH MICROSCOPIC EXAM; Future; Expected date: 12/01/2023 - 25-HYDROXY VITAMIN D; Future; Expected date: 12/01/2023 Chronic diastolic heart failure (HCC) HTN, goal below 130/80 Her blood pressure is currently low at 95 x 56. She feels lightheaded at times and also had fall inAugu2023. Given this will decrease the dose of torsemide to 20 mg daily. She does have lot of edema but most of it is because of obesity related lymphedema. - Torsemide 20 MG Oral Tablet (Demadex); 1 tab daily in Morning Follow Up: Return in about 6 months (around 05/30/2024) for Clinic Visit. | For: Clinic Visit Joaquin Shelley MD documented in this encounter Nursing Notes * Kriss Aguirre LPN - 12/01/2023 11:51 AM EDT Patient identified by verbal name and date of . Chief Complaint Patient presents with Return Visit Chronic Kidney Disease (CKD) Hypertension No recent inpatient hospital stays or ED visits No surgery Denies SOB but notes bilateral ankle edema left worse after fall in October 2023 Last labs 07/04/23 documented in this encounter Plan of Treatment Upcoming Encounters Date Type Department Care Team (Late st Contact Info) Description 12/05/2023 12:40 PM EDT Office Visit Podiatry [facility] [address] [place] [address] Samantha Borden, KRYSTEN [address] [place] [address] 01/02/2024 11:00 AM EDT Office Visit Nutrition & Weight Management, [facility] [address] [place] [address] Sallie Marrero, PACadenC [address] [place] [address] 02/07/2024 2:00 PM EST Office Visit Cardiology, [facility] [address] [place] [address] Clementine Wang, PA-C [address] [place] [address] 02/26/2024 2:00 PM EST Office Visit Family Practice, [place] [address] [place] [phone] Kennedy Brooks MD [address] [place] [address] 04/25/2024 2:00 PM EST Nurse Only Ancillary Department, [place] [address] [place] [address] [place], Nurse [facility] [address] [place] [address] 06/11/2024 12:30 PM EDT Office Visit Sleep Disorders [facility] [address] [place] [phone] Iwona Yanez CRNP [address] [place] [address] 07/03/2024 3:40 PM EDT Office Visit Nephrology, [facility] [address] [place] [address] Joaquin Shelley MD [address] [place] [address] Pending Results Name Type Priority Associated Diagnoses Date /Time CBC WITH WBC DIFFERENTIAL Lab Routine Stage 3b chronic kidney disease (HCC) 12/01/2023 12:57 PM EDT PTH Lab Routine Stage 3b chronic kidney disease (HCC) 12/01/2023 12:57 PM EDT PROTEIN/ CREATININE RATIO, URINE Lab Routine Stage 3b chronic kidney disease (HCC) 12/01/2023 12:57 PM EDT RENAL FUNCTION PANEL Lab Routine Stage 3b chronic kidney disease (HCC) 12/01/2023 12:57 PM EDT URINALYSIS WITH MICROSCOPIC EXAM Lab Routine Stage 3b chronic kidney disease (HCC) 12/01/2023 12:57 PM EDT 25-HYDROXY VITAMIN D Lab Routine Stage 3b chronic kidney disease (HCC) 12/01/2023 12:57 PM EDT Scheduled Orders Name Type Priority Associated Diagnoses Orde r Schedule CBC WITH WBC DIFFERENTIAL Lab Routine Stage 3b chronic kidney disease (HCC) Expected: 12/01/2023 (Approximate), Expires: 05/29/2024 PTH Lab Routine Stage 3b chronic kidney disease (HCC) Expected: 12/01/2023 (Approximate), Expires: 05/29/2024 PROTEIN/ CREATININE RATIO, URINE Lab Routine Stage 3b chronic kidney disease (HCC) Expected: 12/01/2023 (Approximate), Expires: 05/29/2024 RENAL FUNCTION PANEL Lab Routine Stage 3b chronic kidney disease (HCC) Expected: 12/01/2023 (Approximate), Expires: 05/29/2024 URINALYSIS WITH MICROSCOPIC EXAM Lab Routine Stage 3b chronic kidney disease (HCC) Expected: 12/01/2023 (Approximate), Expires: 05/29/2024 25-HYDROXY VITAMIN D Lab Routine Stage 3b chronic kidney disease (HCC) Expected: 12/01/2023 (Approximate), Expires: 05/29/2024 Scheduled Procedures Name Priority Associated Diagnoses Date/Ti me COLONOSCOPY FLEXIBLE PROXIMAL DIAGNOSTIC Recall History of colon polyps Health Maintenance Due Date Last Done Comments Cologuard 2002 Fecal Occult Blood Test 2002 Sigmoidoscopy 2002 Colonoscopy 05/10/2023 05/09/2018, 05/09/2018 Colorectal Cancer Screening 05/10/2023 Mammogram 09/02/2023 09/01/2022, 08/05, 06/16/2021, Additional history exists COVID-19 Vaccine ( season) 2023 02/28/2023, 01/08/2022, 05/06/2021 Influenza Vaccine (FLU shot) (#1) 2023 02/22/2023 GFR 12/27/2023 06/27/2023, 04/06, 01/25/2023, Additional history exists Albumin/Creatinine Ratio 02/04/2024 023, 05/20/2021, 11/13/2017, Additional history exists Adult Wellness Visit 04/21/2024 04/21/2023 CKD HGB USE SMARTSET 45536 06/26/202406/26, 06/27/2023, 08/31/2022, Additional history exists CKD PHOS USE SMARTSET 74309 06/26/202406/05, 09/09/2020, 03/24/2020, Additional history exists HbA1c 06/26/2024 06/27/2023, 11/18/2010 TSH 06/26/2024 06/27/2023, 05/05, 09/23/2021, Additional history exists Depression Monitoring 08/29/2024 08/30/2023 DTap/Tdap Vaccines (3 - Td or Tdap) [...] this encounter Medical Devices Implanted Type Area Embossing Machine Tender Device Identifier Shelf Expiration Date Model / Serial / Lot Lens Intraoc 20.0 - [id number] - [id number] Implanted:Qty: 1 on 01/02/2020 by Guero Bell MD at OR [facility] Left: Eye [employer] 07/03/2024 [id number] / [id number] / [id number] Lens Intraoc 20.0 - [id number] - [id number] Implanted:Qty: 1 on 01/16/2020 by Guero Bell MD at OR [facility] Right: Eye [employer] 08/03/2024 [id number] / [id number] / [id number] documented as of this encounter Visit Diagnoses Diagnosis Stage 3b chronic kidney disease (HCC)- Primary Chronic diastolic heart failure (HCC) Chronic diastolic heart failure HTN, goal below 130/80 Unspecified essential hypertension documented in this encounter Advance Directives * [...] Discussed due to patient's condition Care Teams Director Of Market Research Relationship Specialty Start Date End Date Kennedy Brooks MD [address] [place] [address] PCP - General Family Medicine 04/23/18 documented as of this encounter
--- OUTSIDE RECORDS SUMMARY | 2024-01-17 10:33 | External Medical Summary | Summary of Care ---
Author Name Unknown Organization [facility] Address [address] [place] [address] Phone [phone] Care Team Providers Care Business Transformation Manager Name Role Phone Kennedy Brooks MD Primary Care Provider [phone] Reason for Visit * Reason Comments Return Visit Chronic Kidney Disease (CKD) Hypertension Encounter Details Date Type Department Care Team (Late st Contact Info) Description 12/01/2023 11:40 AM EDT Office Visit Nephrology, Kiley Gavin [address] [place] [address] Joaquin Shelley MD [address] [place] [address] Stage 3b chronic kidney disease (HCC)*; Chronic diastolic heart failure (HCC); HTN, goal below 130/80; HTN, goal below 140/90; Chronic kidney disease, stage 3b (HCC); Dysuria Allergies Active Allergy Reactions Criticality Noted Date [...] bedtime. 90 Tablet 3 4 Active Nystatin 299412 UNIT/GM External Powder (Nystop) Apply topically to [...] mRNA, LNP-s, No Pre serve, 2-Dose Series ([employer]) 01/08/2022,05/06/2021 COVID-19, MRNA-LNP, 23-24, P F, 52 [...] documented in this encounter Progress Notes * Joaquni Shelley MD - 12/01/2023 11:55 AM EDT [...] mouth at bedtime. 90 Tablet 3 Nystatin 179987 UNIT/GM External Powder (Nystop) Apply topically to [...] performed by Edgardo Messer MD at ENDOSCOPY [facility] DENTAL SURGERY PROCEDURE NEC Dental Surgery Procedure EGD, FLEXIBLE, DIAGNOSTIC N/A 10/11/2023 biopsies show mild gastritis/ESOPHAGOGASTRODUODENOSCOPY (EGD), FLEXIBLE, TRANSORAL, DIAGNOSTIC performed by Jan Haynes DO at OR [facility] HAND/FINGER SURGERY NEC 06/01/2011 right hand--Dr. Fuentes INJECT DX/THER SUBSTANCE INTERLAMINAR CERVICAL/THORACIC W IMAGE GUIDE 04/07/2022 INJECTION SPINE LUMBAR CERVICAL OR THORACIC performed by Ezra Harris DO at OR [facility] INJECT DX/THER SUBSTANCE INTERLAMINAR LUMBAR/SACRAL W IMAGE GUIDE 12/06/2021 INJECTION SPINE LUMBAR OR SACRAL performed by Ezra Harris DO at OR [facility] INJECT DX/THER SUBSTANCE INTERLAMINAR LUMBAR/SACRAL W IMAGE GUIDE 10/10/2022 INJECTION SPINE LUMBAR OR SACRAL performed by Ezra Harris DO at OR [facility] LAP;W/HYSTERECTOMY 2001 Hysterectomy Complete LAPAROSCOPY; CHOLECYSTECTOMY 2001 Cholecystectomy, Laproscopic MISCELLANEOUS ORDER ([facility] ONLY) colonoscopy 2011 [place] EXCISION OF LESION OF EYELID,(EXCEPT CHALAZION) WITHOUT CLOSURE OR WITH SIMPLE DIRECT CLOSURE. Bilateral 06/22/2022 Dr. Braun-excision both eyes REMOVAL OF EYELID LESION Bilateral 11/09/2022 Dr. 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 Given this will decrease the dose of [...] 12/05/2023 12:40 PM EDT Office Visit Podiatry [facility] [address] [facility] [place] [address] Samantha Borden, DPAndreina 132 [facility] [address] 12/07/2023 12:45 PM EDT Office Visit General Surgery, [facility] [address] [place] [address] Ben Ochoa MD [address] [place] [address] 01/02/2024 11:00 AM EDT Office Visit Nutrition & Weight Management, [facility] [address] [place] [address] Sallie Marrero PACadenC 132 [place] [address] 02/07/2024 2:00 PM EST Office Visit Cardiology, [facility] [address] [place] [address] Clementine Wang, PA-C 132 [place] [address] 02/26/2024 2:00 PM EST Office Visit Family Practice, [place] [address] [place] [phone] Kennedy Brooks MD [address] [place] [address] 04/25/2024 2:00 PM EST Nurse Only Ancillary Department, [place] [address] [place] [facility] [place] [address] [place], Nurse [facility] [address] [place] [address] 06/11/2024 12:30 PM EDT Office Visit [facility] Disorders [facility]tr [facility] [place] [address] [place] [phone] Iwona Yanez CRNP [address] [place] [address] 07/03/2024 3:40 PM EDT Office Visit Nephrology, [facility] 200 [facility] [place] [address] Joaquin Shelley MD 200 [facility] [place] [address] Pending Results Name Type Priority Associated Diagnoses Date /Time PTH Lab Routine Stage 3b chronic kidney disease (HCC) 12/01/2023 12:57 PM EDT PROTEIN/ CREATININE RATIO, URINE Lab Routine Stage 3b chronic kidney disease (HCC) 12/01/2023 12:57 PM EDT RENAL FUNCTION PANEL Lab Routine Stage 3b chronic kidney disease (HCC) 12/01/2023 12:57 PM EDT 25-HYDROXY VITAMIN D Lab Routine Stage 3b chronic kidney disease (HCC) 12/01/2023 12:57 PM EDT CULTURE, URINE, QUANTITATIVE Lab Routine HTN, goal below 140/90 Chronic kidney disease, stage 3b (HCC) Dysuria 12/01/2023 2:24 PM EDT Scheduled Orders Name Type Priority Associated Diagnoses Orde r Schedule PTH Lab Routine Stage 3b chronic kidney [...] exists Adult Wellness Visit 04/21/2024 04/21/2023 CKD PHOS USE SMARTSET 56534 06/26/202406/05, 09/09/2020, 03/24/2020, Additional history exists HbA1c 06/26/2024 06/27/2023, 11/18/2010 TSH 06/26/2024 06/27/2023, 05/05, 09/23/2021, Additional history exists Depression Monitoring 08/29/2024 08/30/2023 CKD HGB USE SMARTSET 24695 11/30/202411/30, 12/01/2023, 06/27/2023, Additional history exists DTap/Tdap Vaccines (3 - [...] this encounter Medical Devices Implanted Type Area Dental Front Office Assistant Device Identifier Shelf Expiration Date Model / Serial / Lot Lens Intraoc 20.0 - [id number] - [id number] Implanted:Qty: 1 on 01/02/2020 by Guero Bell MD at OR [facility] Left: Eye BAUSCH & LOMB 07/03/2024 [id number] / [id number] / [id number] Lens Intraoc 20.0 - [id number] - [id number] Implanted:Qty: 1 on 01/16/2020 by Guero Bell MD at OR [facility] Right: Eye BAUSCH & LOMB 08/03/2024 [id number] / [id number] / [id number] documented as of this encounter Results * (ABNORMAL) URINALYSIS WITH MICROSCOPIC EXAM (12/01/2023 12:57 PM EDT) Color, Urine Yellow Light Yellow, Yellow, Dark Yellow 12/01/2023 2:01 PM EDT [facility]- Clarity, Urine Clear Clear 12/01/2023 2:01 PM EDT [facility]- Glucose, Urine Negative Negative mg/dL 12/01/2023 2:01 PM EDT [facility] 56- Bilirubin, Urine Negative Negative 12/01/2023 2:01 PM EDT [facility] 56- Ketone, Urine Negative Negative mg/dL 12/01/2023 2:01 PM EDT [facility]- Specific [place], Urine 1.015 1.003 - 1.030 12/01/2023 2:01 PM EDT [facility] 56- Blood, Urine Trace(A) Negative 12/01/2023 2:01 PM EDT [facility] 56- pH, Urine 6.0 5.0 - 7.5 Units 12/01/2023 2:01 PM EDT [facility] 56- Protein, Urine Negative Negative mg/dL 12/01/2023 2:01 PM EDT [place] [address] Urobilinogen, Urine 0.2 0.2, 1.0 mg/dL 12/01/2023 2:01 PM EDT [place] [address] Nitrite, Urine Positive(A) Negative 12/01/2023 2:[address] Esterase, Urine Moderate(A) Negative 12/01/2023 2:[address] RBC, Urine 0-2 0 - 2 /HPF 12/01/2023 2:[address] WBC, Urine 10-19(A) 0 - 2 /HPF 12/01/2023 2:[address] Bacteria, Urine 151-200(A) 0 - 25 /HPF 12/01/2023 2:[address] PM EDT [address] Hyaline, Cast, Urine 5-9(A) None /LPF 12/01/2023 2:01 PM EDT [address] Urine Non-blood Collection / Unknown 12/01/2023 12:57 PM EDT 12/01/2023 12:57 PM EDT Joaquin Shelley MD LAB URINE ORDERABLES [place] [address] [place] [address] documented in this encounter Visit Diagnoses Diagnosis Stage 3b chronic kidney disease (HCC)- Primary Chronic diastolic heart failure (HCC) Chronic diastolic heart failure HTN, goal below 130/80 Unspecified essential hypertension HTN, goal below 140/90 Unspecified essential hypertension Chronic kidney disease, stage 3b (HCC) Dysuria documented in this encounter Advance Directives * [...] due to patient's condition Care Teams Business Transformation Manager Relationship Specialty Start Date End Date Kennedy Brooks MD [address] [place] [address] PCP - General Family Medicine 04/23/18 documented as of this encounter
--- OUTSIDE RECORDS SUMMARY | 2024-01-17 10:33 | External Medical Summary | Summary of Care ---
Author Name Unknown Organization [facility] Address [address] [place] [address] Phone [phone] Care Team Providers Care Receiving Associate Name Role Phone Kennedy Brooks MD Primary Care Provider [phone] Reason for Visit * Reason Onset Date Comments Test Results 12/04/2023 Encounter Details Date Type Department Care Team (Late st Contact Info) Description 12/04/2023 Telephone Nephrology, Kiley Toano 200 [facility] [place] [address] Joaquin Shelley MD 200 [facility] [place] [facility] [place] [address] Test Results Allergies Active Allergy Reactions Criticality Noted Date Comments Paroxetine Hydrochloride Hives 06/07/2007 documented as of this encounter (statuses as of 12/04/2023) Medications Medication Sig Dispensed Refills Start Date [...] bedtime. 90 Tablet 3 05/04/2023 Active Nystatin 181042 UNIT/GM External Powder (Nystop) Apply topically to [...] Management)Indicatio ns:PAD (peripheral artery disease) ([facility]) Inject 0.25 mg under the skin [...] as of this encounter (statuses as of 12/04/2023) Active Problems Problem Noted Date Diagnosed Date [...] as of this encounter (statuses as of 12/04/2023) Resolved Problems Problem Noted Date Diagnosed Date [...] as of this encounter (statuses as of 12/04/2023) Immunizations Name Administration Dates Next Due COVID-19 mRNA, LNP-s, No Pre serve, 2-Dose Series ([employer]) 01/08/2022,05/06/2021 COVID-19, MRNA-LNP, 23-24, P F, 52 [...] encounter Miscellaneous Notes * Telephone Encounter - Kriss Aguirre LPN - 12/04/2023 12:40 PM EDT Rx please approve Rx * Telephone Encounter - Kriss Aguirre LPN - 12/04/2023 12:35 PM EDT Pt is advised results of CKD labs and Urine/culture results Pt denies allergies to antibiotic will start Augmentin 500 mg tid x 7 days till finished Pt currently does take probiotic but will also addyogurt Request rx [facility] [place] Pt will return call to our office to discuss * Telephone Encounter - Kriss Aguirre LPN - 12/04/2023 12:31 PM EDT ----- Message from Joaquin Shelley MD sent at 12/04/2023 12:22 PM EDT ----- Urine culture positive for bacteria. Will need to use antibiotics. Based on the sensitivity pattern will do Augmentin 500 twice daily for 7 day. Remind her to take some probiotic could be anything over the counter or even extra yogurt to decrease the antibiotic associated diarrhea * Telephone Encounter - Kriss Aguirre LPN - 12/04/2023 12:30 PM EDT ----- Message from Joaquin Shelley MD sent at 12/04/2023 12:23 PM EDT ----- See the other note regarding urine culture being positive. These labs are stable with CKD at baseline range documented in this encounter Plan of Treatment Upcoming Encounters Date Type Department Care Team (Late st Contact Info) Description 12/05/2023 12:40 PM EDT Office Visit Podiatry [facility] [address] [place] [address] Samantha Borden DPM [address] [place] [address] 12/07/2023 12:45 PM EDT Office Visit General Surgery, [facility] 132 [facility] [place] [address] Ben Ochoa MD [address] [place] [address] 01/02/2024 11:00 AM EDT Office Visit Nutrition & Weight Management, [facility] 132 [facility] [place] [address] Sallie Marrero, PA-C 132 [facility] [place] [address] 02/07/2024 2:00 PM EST Office Visit Cardiology, [facility] 132 [facility] [place] [address] Clementine Wang, PA-C 132 [facility] [place] [address] 02/26/2024 2:00 PM EST Office Visit Family Practice, [place] [address] [place] [phone] Kennedy Brooks MD [address] [place] [address] 04/25/2024 2:00 PM EST Nurse Only Ancillary Department, [place] [address] [place] [address] [place], Nurse [facility] [address] [place] [address] 06/11/2024 12:30 PM EDT Office Visit Sleep Disorders Ctr [facility] 132 [facility] [place] [phone] Iwona Yanez CRNP 132 [facility] [place] [address] 07/03/2024 3:40 PM EDT Office Visit Nephrology, Kiley Gavin 200 [facility] [place] [address] Joaquin Shelley MD 200 [facility] [place] [address] Scheduled Procedures Name Priority Associated Diagnoses Date/Ti [...] Monitoring 08/29/2024 08/30/2023 CKD HGB USE SMARTSET 97695 11/30/202411/30, 12/01/2023, 06/27/2023, Additional history exists CKD PHOS USE SMARTSET 22283 11/30/20242 09/2023, 06/27/2023, 09/09/2020, Additional history exists [...] this encounter Medical Devices Implanted Type Area Area Manager Device Identifier Shelf Expiration Date Model / Serial / Lot Lens Intraoc 20.0 - [id number] - [id number] Implanted:Qty: 1 on 01/02/2020 by Guero Bell MD at OR [facility] Left: Eye BAUSCH [employer] LOMB 07/03/2024 [id number] / [id number] / [id number] Lens Intraoc 20.0 - [id number] - [id number] Implanted:Qty: 1 on 01/16/2020 by Guero Bell MD at OR [facility] Right: Eye BAUSCH & LOMB 08/03/2024 [id number] / [id number] / [id number] documented as of this encounter Advance Directives [...] Discussed due to patient's condition Care Teams Receiving Associate Relationship Specialty Start Date End Date Kennedy Brooks MD [address] [place] [address] PCP - General Family Medicine 04/23/18 documented as of this encounter
--- OUTSIDE RECORDS SUMMARY | 2024-01-17 10:33 | External Medical Summary | Summary of Care ---
Author Name Unknown Organization [facility] Address [address] [place] [address] Phone [phone] Care Team Providers Care Kardex Clerk Name Role Phone Kennedy Brooks MD Primary Care Provider [phone] Reason for Visit * Reason Onset Date Comments Outpatient Testing 12/01/2023 Encounter Details Date Type Department Care Team (Late st Contact Info) Description 12/01/2023 Telephone Nephrology, Kiley Gavin 200 [place] [address] Joaquin Shelley MD 200 [place] [address] Outpatient Testing Allergies Active Allergy Reactions Criticality Noted Date [...] bedtime. 90 Tablet 3 05/04/2023 Active Nystatin 322392 UNIT/GM External Powder (Nystop) Apply topically to [...] Management)Indicatio ns:PAD (peripheral artery disease) ([facility]) Inject 0.25 mg under the skin [...] in Morning 90 Tablet 3 12/01/2023 Active documented as of this encounter (statuses [...] mRNA, LNP-s, No Pre serve, 2-Dose Series ([employer]) 01/08/2022,05/06/2021 COVID-19, MRNA-LNP, 23-24, P F, 52 [...] Telephone Encounter - Kriss Aguirre LPN - 12/01/2023 2:23 PM EDT Order for urine C&S placed in adjust system Yaima in lab fariha aware * Telephone Encounter - Kriss Aguirre LPN - 12/01/2023 2:19 PM EDT ----- Message from Joaquin Shelley MD sent at 12/01/2023 2:19 PM EDT ----- Add urine c/s to this sample documented in this encounter Plan of Treatment Upcoming Encounters Date Type Department Care Team (Late st Contact Info) Description 12/05/2023 12:40 PM EDT Office Visit Podiatry [facility] [address] [place] [address] Samantha Borden DPM [address] [place] [address] 12/07/2023 12:45 PM EDT Office Visit General Surgery, [facility] [place] [address] Ben Ochoa MD [address] [place] [address] 01/02/2024 11:00 AM EDT Office Visit Nutrition & Weight Management, [facility] 132 [facility] [place] [address] Sallie Marrero PA-C [address] [place] [address] 02/07/2024 2:00 PM EST Office Visit Cardiology, [facility] 132 [facility] [place] [address] Clementine Wang PA-C [address] [place] [address] 02/26/2024 2:00 PM EST Office Visit [address] [phone] Kennedy Brooks MD [address] [place] [address] 04/25/2024 2:00 PM EST Nurse Only Ancillary Department, [place] [address] [place] [facility] [place] [address] [place], Nurse Annual [facility] [address] [place] [address] 06/11/2024 12:30 PM EDT [facility] [address] [facility] [phone] Iwona Yanez CRNP 132 [facility] [address] 07/03/2024 3:40 PM EDT Office Visit Nephrology, [facility] 200 [place] [address] Joaquin Shelley MD 200 [place] [address] Pending Results Name Type Priority Associated Diagnoses Date /Time CULTURE, URINE, QUANTITATIVE Lab Routine HTN, goal below 140/90 Chronic kidney disease, stage 3b (HCC) Dysuria 12/01/2023 2:24 PM EDT Scheduled Orders Name Type Priority Associated Diagnoses Orde r Schedule CULTURE, URINE, QUANTITATIVE Lab Routine HTN, goal below 140/90 Chronic kidney disease, stage 3b (HCC) Dysuria Expected: 12/01/2023, Expires: 11/30/2024 Scheduled Procedures Name Priority Associated Diagnoses Date/Ti [...] Visit 04/21/2024 04/21/2023 CKD PHOS USE SMARTSET 51580 06/26/202406/05, 09/09/2020, 03/24/2020, Additional history exists HbA1c 06/26/2024 06/27/2023, 11/18/2010 TSH 06/26/2024 06/27/2023, 05/05, 09/23/2021, Additional history exists Depression Monitoring 08/29/2024 08/30/2023 CKD HGB USE SMARTSET 68062 11/30/202411/30, 12/01/2023, 06/27/2023, Additional history exists DTap/Tdap [...] this encounter Medical Devices Implanted Type Area Iron Pellet Tester Device Identifier Shelf Expiration Date Model / Serial / Lot Lens Intraoc 20.0 - [id number] - [id number] Implanted:Qty: 1 on 01/02/2020 by Guero Bell MD at OR [facility] Left: Eye BAUSCH & LOMB 07/03/2024 [id number] / [id number] / [id number] Lens Intraoc 20.0 - [id number] - [id number] Implanted:Qty: 1 on 01/16/2020 by Guero Bell MD at OR [facility] Right: Eye BAUSCH & LOMB 08/03/2024 [id number] / [id number] / [id number] documented as of this encounter Visit Diagnoses Diagnosis HTN, goal below 140/90- Primary Unspecified essential hypertension Chronic kidney disease, stage [...] Discussed due to patient's condition Care Teams Kardex Clerk Relationship Specialty Start Date End Date Kennedy Brooks MD [address] [place] [address] PCP - General Family Medicine 04/23/18 documented as of this encounter
--- OUTSIDE RECORDS SUMMARY | 2024-01-17 10:33 | External Medical Summary ---
Author Name Unknown Address Unknown Organization K[facility] [place] [address] Laboratory Report Ordering Provider Test Date Status ELIDIA PLUNKETT 12/01/2023 12:57:59 Final Observation Date Value Abnormality Reference (Units ) Status Color of Urine by Auto 12/01/2023 12:57:59 Yellow Light Yellow, Yellow, Dark Yellow Final Clarity, Urine 12/01/2023 12:57:59 Clear Clear Final Glucose [Mass/volume] in Urine by Automated test strip 12/01/2023 12:57:59 Negative Negative (mg/dL) Final Bilirubin.total [Presence] in Urine by Automated test strip 12/01/2023 12:57:59 Negative Negative Final Ketones [Mass/volume] in Urine by Automated test strip 12/01/2023 12:57:59 Negative Negative (mg/dL) Final Specific gravity, Urine 12/01/2023 12:57:59 1.015 1.003-1.030 Final Hemoglobin [Presence] in Urine by Automated test strip 12/01/2023 12:57:59 Trace Abnormal Negative Final pH, Urine 12/01/2023 12:57:59 6.0 5.0-7.5 (Units) Final Protein [Mass/volume] in Urine by Automated test strip 12/01/2023 12:57:59 Negative Negative (mg/dL) Final Urobilinogen [Mass/volume] in Urine by Automated test strip 12/01/2023 12:57:59 0.2 0.2, 1.0 (mg/dL) Final Nitrite [Presence] in Urine by Automated test strip 12/01/2023 12:57:59 Positive Abnormal Negative Final Leukocyte esterase [Presence] in Urine by Automated test strip 12/01/2023 12:57:59 Moderate Abnormal Negative Final RBC, Urine 12/01/2023 12:57:59 0-2 0-2 (/HPF) Final WBC, Urine 12/01/2023 12:57:59 10-19 Abnormal 0-2 (/HPF) Final Bacteria [#/area] in Urine sediment by Microscopy high power field 12/01/2023 12:57:59 151-200 Abnormal 0-25 (/HPF) Final Hyaline casts, Urine 12/01/2023 12:57:59 5-9 Abnormal None (/LPF) Final Performing Location [facility] [address] [place] [address]
--- OUTSIDE RECORDS SUMMARY | 2024-01-17 10:33 | External Medical Summary ---
Author Name Unknown Address Unknown Organization K01:[facility] [place] [address] [place] [id number] Laboratory Report Ordering Provider Test Date Status ELIDIA PLUNKETT 12/01/2023 12:57:59 Final Normal: <150 mg/ g creatinine
High: 150-500 mg/g creatinine
Very High: >500 mg/g creatinine
Nephrotic: >3000 mg/g creatinine Observation Date Value Abnormality Reference (Units ) Status Protein/Creatinine [Ratio] in Urine 12/01/2023 12:57:59 <125 <150 (mg/g ) Final Protein, Urine 12/01/2023 12:57:59 <6 (mg/dL) Final Creatinine, Urine 12/01/2023 12:57:59 48 (mg/dL) Final Performing Location [facility] [place] - [address] [place] [id number]
--- OUTSIDE RECORDS SUMMARY | 2024-01-17 10:33 | External Medical Summary | Summary of Care ---
Author Name Unknown Organization [facility] Address [address] [place] [address] Phone [phone] Care Team Providers Care Dry Wall Installations Mechanic Name Role Phone Kennedy Brooks MD Primary Care Provider Reason for Visit * Reason Onset Date Comments Test Results 12/04/2023 Encounter Details Date Type Department Care Team (Late st Contact Info) Description 12/04/2023 Telephone Nephrology, [place] 200 [facility] [place] [address] Joaquin Shelley MD 200 [place] [address] Test Results Allergies Active Allergy Reactions Criticality [...] bedtime. 90 Tablet 3 05/04/2023 Active Nystatin 202938 UNIT/GM External Powder (Nystop) Apply topically to [...] Auto-injector (Semaglutide-Weight Management)Indicatio ns:PAD (peripheral artery disease) ([facility]) Inject 0.25 mg under the skin once [...] mRNA, LNP-s, No Pre serve, 2-Dose Series (QBuy) 01/08/2022,05/06/2021 COVID-19, MRNA-LNP, 23-24, P F, 52 [...] 12:40 PM EDT Office Visit Podiatry [facility] [address] [address] Samantha Borden DPM [address] [place] [address] 12/07/2023 12:45 PM EDT Office Visit General Surgery, [facility] 132 [facility] [place] [address] Ben Ochoa MD [address] [place] [address] 01/02/2024 11:00 AM EDT Office Visit Nutrition & Weight Management, [facility] 132 [facility] [place] [address] Sallie Marrero, PA-C 132 [facility] [place] [address] 02/07/2024 2:00 PM EST Office Visit Cardiology, [facility] 132 [facility] [place] [address] Clementine Wang, PA-C 132 [facility] [place] [address] 02/26/2024 2:00 PM EST Office Visit Family Practice, [place] [address] [place] [address] Kennedy Brooks MD [address] [place] [address] 04/25/2024 2:00 PM EST Nurse Only Ancillary Department, [place] [address] [place] [address] [place], Nurse Annual Wellness [address] [place] [address] 06/11/2024 12:30 PM EDT Office Visit Sleep Disorders Ctr [facility] 132 [facility] [place] [phone] Iwona Yanez CRNP 132 [facility] [place] [address] 07/03/2024 3:40 PM EDT Office Visit Nephrology, [place] 200 [facility] [place] [address] Joaquin Shleley MD 200 [facility] [place] [address] Scheduled Procedures Name Priority Associated Diagnoses Date/Ti [...] Monitoring 08/29/2024 08/30/2023 CKD HGB USE SMARTSET 11276 11/30/202411/30, 12/01/2023, 06/27/2023, Additional history exists CKD PHOS USE SMARTSET 41091 11/30/20242 09/2023, 06/27/2023, 09/09/2020, Additional history exists [...] this encounter Medical Devices Implanted Type Area Configurator Device Identifier Shelf Expiration Date Model / Serial / Lot Lens Intraoc 20.0 - [id number] - [id number] Implanted:Qty: 1 on 01/02/2020 by Guero Bell MD at OR [facility] Left: Eye BAUSCH & LOMB 07/03/2024 [id number] / [id number] / [id number] Lens Intraoc 20.0 - [id number] - [id number] Implanted:Qty: 1 on 01/16/2020 by Guero Bell MD at OR [facility] Right: Eye BAUSCH & LOMB 08/03/2024 [id number] / [id number] / [id number] documented as of this encounter Advance Directives [...] Discussed due to patient's condition Care Teams Dry Wall Installations Mechanic Relationship Specialty Start Date End Date Kennedy Brooks MD [address] [place] [address] PCP - General Family Medicine 04/23/18 documented as of this encounter
--- OUTSIDE RECORDS SUMMARY | 2024-01-17 10:33 | External Medical Summary ---
Author Name Unknown Address Unknown Organization K01:[facility] - [address] [facility] [address] Laboratory Report Ordering Provider Test Date Status ELIDIA PLUNKETT 12/01/2023 14:24:24 Final <10,000 colonies/ml mixed no rmal stephen Observation Date Value Abnormality Reference (Units ) Status Bacteria identified in Specimen by Culture 12/01/2023 14:24:24 [id number]^ESCHE RICHIA COLI Abnormal Final >100,000 colonies/mL Escheri phillip coli Performing Location [facility] - [address] [facility] [address] Ordering Provider Test Date Status ELIDIA PLUNKETT 12/01/2023 14:24:24 Final Observation Date Value Abnormality Reference (Units ) Status Ampicillin 12/01/2023 14:24:24 <=2 Susceptible Final Cefazolin 12/01/2023 14:24:24 <=4 Susceptible Final Cefepime susceptibility 12/01/2023 14:24:24 <=1 Susceptible Final Ceftriaxone suceptibility 12/01/2023 14:24:24 <=1 Susceptible Final Ciprofloxacin 12/01/2023 14:24:24 <=0.25 Susceptible Final Due to serious side effects, the FDA has advised against using Ciprofloxacin to treat uncomplicated UTIs and respiratory tract infections unless there are no alternative treatment options. Gentamicin susceptibility 12/01/2023 14:24:24 <=1 Susc eptible Final Nitrofurantoin susceptibility 12/01/2023 14:24:24 <=16 Susceptible Final Piperacillin + Tazobactamsusceptibility 12/01/2023 14:24:24 <=4 Susceptible Final TMP-SMZ susceptibility 12/01/2023 14:24:24 <=20 Suscept ible Final Test: Culture, Urine, Quanti tative
Specimen Source: Urine, Clean Catch
Specimen Type: Urine
Specimen Date: 12/01/2023 1424
Result Date: 12/03/2023 0741
Result Status: Final result
Abnormal: Yes
Resulting Lab: [facility]
[address]
[facility] [address]

CULTURE

>100,000 colonies/mL Escherichia coli (Abnormal)

<10,000 colonies/ml mixed normal stephen

SUSCEPTIBILITY

Escherichia coli
METHOD MICROBROTH
DILUTIONS

AMPICILLIN <=2 Susceptible
CEFAZOLIN <=4 Susceptible
CEFEPIME <=1 Susceptible
CEFTRIAXONE <=1 Susceptible
CIPROFLOXACIN <=0.25 Susceptible
[1]
GENTAMICIN <=1 Susceptible
NITROFURANTOIN <=16 Susceptible
PIPERACILLIN TAZOBACTAM <=4 Susceptible
TRIMETH/SULFAMETHOXAZOLE <=20 Susceptible

[1] Due to serious side effects, the FDA has advised against using
Ciprofloxacin to treat uncomplicated UTIs and respiratory tract infections
unless there are no alternative treatment options.

null Performing Location [facility] - [address] [facility] [address]
--- OUTSIDE RECORDS SUMMARY | 2024-01-17 10:33 | External Medical Summary | Summary of Care ---
Author Name Unknown Organization [facility] Address [address] [place] [address] Phone [phone] Care Team Providers Care Operating Room Specialist Name Role Phone Kennedy Brooks MD Primary Care Provider [phone] Reason for Visit * Reason Comments Outpatient Testing Encounter Details Date Type Department Care Team (Late st Contact Info) Description 12/01/2023 12:40 PM EDT Laboratory Laboratory [facility] [place] [address] [place] [address] [place], Lab Scenery [address] [place] [address] Stage 3b chronic kidney disease (HCC) Allergies Active Allergy Reactions Criticality Noted Date [...] bedtime. 90 Tablet 3 05/04/2023 Active Nystatin 105646 UNIT/GM External Powder (Nystop) Apply topically to [...] Management)Indicatio ns:PAD (peripheral artery disease) ([facility]) Inject 0.25 mg under the skin once [...] mRNA, LNP-s, No Pre serve, 2-Dose Series (SkilledWizard) 01/08/2022,05/06/2021 COVID-19, MRNA-LNP, 23-24, P F, 52 [...] on file documented as of this encounter Plan of Treatment Upcoming Encounters Date Type Department Care Team (Late st Contact Info) Description 12/05/2023 12:40 PM EDT Office Visit Podiatry [facility] [address] [address] Samantha Borden DPM [address] [address] 01/02/2024 11:00 AM EDT Office Visit Nutrition & Weight Management, [facility] 132 [facility] [place] [address] Sallie Marrero PA-C 132 [place] [address] 02/07/2024 2:00 PM EST Office Visit Cardiology, [facility] 132 [facility] [place] [address] Clementine Wang PA-C [facility] [address] 02/26/2024 2:00 PM EST Office Visit Family [facility], [place] [address] [place] [phone] Kennedy Brooks MD [address] [place] [address] 04/25/2024 2:00 PM EST Nurse Only Ancillary Department, [place] [address] [place] [address] [place], Nurse Annual Wellness [address] [place] [address] 06/11/2024 12:30 PM EDT Office Visit Sleep Disorders Ctr [facility] [address] [place] [phone] Iwona Yanez CRNP 132 [facility] [place] [address] 07/03/2024 3:40 PM EDT Office Visit Nephrology, [facility] [address] [place] [address] Joaquin Shelley MD [address] [place] [address] Pending Results Name Type Priority Associated Diagnoses [...] disease (HCC) 12/01/2023 12:57 PM EDT Scheduled Procedures Name Priority Associated Diagnoses Date/Ti [...] Visit 04/21/2024 04/21/2023 CKD PHOS USE SMARTSET 00634 06/26/202406/05, 09/09/2020, 03/24/2020, Additional history exists HbA1c 06/26/2024 06/27/2023, 11/18/2010 TSH 06/26/2024 06/27/2023, 05/05, 09/23/2021, Additional history exists Depression Monitoring 08/29/2024 08/30/2023 CKD HGB USE SMARTSET 50985 11/30/202411/30, 12/01/2023, 06/27/2023, Additional history exists DTap/Tdap [...] this encounter Medical Devices Implanted Type Area Progress Developer Device Identifier Shelf Expiration Date Model / Serial / Lot Lens Intraoc 20.0 - [id number] - [id number] Implanted:Qty: 1 on 01/02/2020 by Guero Bell MD at OR [facility] Left: Eye BAUSCH & LOMB 07/03/2024 [id number] / [id number] / [id number] Lens Intraoc 20.0 - [id number] - [id number] Implanted:Qty: 1 on 01/16/2020 by Guero Bell MD at OR [facility] Right: Eye BAUSCH & LOMB 08/03/2024 [id number] / [id number] / [id number] documented as of this encounter Procedures Procedure Name Priority Date/Time Associated Diagnosis Comments DIFFERENTIAL, AUTOMATED Routine 12/01/2023 12:57 PM EDT Stage 3b chronic kidney disease (HCC) CBC Routine 12/01/2023 12:57 PM EDT Stage 3b chronic kidney disease (HCC) CBC Routine 12/01/2023 12:57 PM EDT Stage 3b chronic kidney disease (HCC) documented in this encounter Results * DIFFERENTIAL, AUTOMATED (12/01/2023 12:57 PM EDT) WBC 5.37 4.00 - 10.80 K/uL 12/01/2023 1:16 PM EDT [facility] 56-02 Neutrophils % 63.7 40.0 - 75.0 % 12/01/2023 1:16 PM EDT [facility] 56- Lymphocytes % 23.8 18.0 - 42.0 % 12/01/2023 1:16 PM EDT [facility] 56- Monocytes % 10.4 1.0 - 11.0 % 12/01/2023 1:16 PM EDT [facility] 56- Eosinophils % 1.9 0.0 - 6.0 % 12/01/2023 1:16 PM EDT [facility] 56- Basophils % 0.2 0.0 - 2.0 % 12/01/2023 1:16 PM EDT [facility] 56-02 Absolute Neutrophils 3.42 1.80 - 7.70 K/uL 12/01/2023 1:16 PM EDT [facility] 56-02 Absolute Lymphocytes 1.28 1.00 - 4.80 K/ul 12/01/2023 1:16 PM EDT [facility] 56-02 Absolute Monocytes 0.56 0.00 - 1.10 K/uL 12/01/2023 1:16 PM EDT [facility] 56-02 Absolute Eosinophils 0.10 0.00 - 0.70 K/uL 12/01/2023 1:16 PM EDT [facility] 56-02 Absolute Basophils 0.01 0.00 - 0.20 K/uL 12/01/2023 1:16 PM EDT [facility] 56-02 Blood Venous blood specimen / Unknown Venipuncture / Unknown 12/01/2023 12:57 PM EDT 12/01/2023 12:57 PM EDT Joaquin Shelley MD LAB BLOOD ORDERABLES [facility] 56-02 [address] [place] [address] * CBC (12/01/2023 12:57 PM EDT) WBC 5.37 4.00 - 10.80 K/uL 12/01/2023 1:16 PM EDT [facility] 56 RBC 4.14 3.85 - 5.15 M/uL 12/01/2023 1:16 PM EDT [address] HGB 13.1 12.0 - 15.3 g/dL 12/01/2023 1:[address]T [address] HCT 38.5 36.0 - 45.2 % 12/01/2023 1:16 PM EDT [address] MCV 93.0 81.5 - 97.5 fL 12/01/2023 1:16 PM EDT [address] MCH 31.6 27.0 - 34.0 pg 12/01/2023 1:16 PM EDT [place] [address] MCHC 34.0 32.0 - 36.0 g/dL 12/01/2023 1:16 PM EDT [address] RDW 14.8 11.5 - 15.5 % 12/01/2023 1:16 PM EDT [facility] 56 PLT 236 140 - 400 K/uL 12/01/2023 1:16 PM EDT [facility] 56 MPV 11.0 6.6 - 11.1 fL 12/01/2023 1:16 PM EDT [facility] 56 Blood Venous blood specimen / Unknown Venipuncture / Unknown 12/01/2023 12:57 PM EDT 12/01/2023 12:57 PM EDT Joaquin Shelley MD LAB BLOOD ORDERABLES [facility] 56- [address] [place] [address] documented in this encounter Visit Diagnoses Diagnosis Stage 3b chronic kidney disease (HCC) documented in this encounter Advance Directives * [...] Discussed due to patient's condition Care Teams Operating Room Specialist Relationship Specialty Start Date End Date Kennedy Brooks MD [address] [place] [address] PCP - General Family Medicine 04/23/18 documented as of this encounter
--- OUTSIDE RECORDS SUMMARY | 2024-01-17 10:33 | External Medical Summary ---
Author Name Unknown Address Unknown Organization K01:[facility] - [address] [place] [address] Laboratory Report Ordering Provider Test Date Status ELIDIA PLUNKETT 12/01/2023 12:57:59 Final Observation Date Value Abnormality Reference (Units ) Status Parathyrin.intact [Mass/volume] in Serum or Plasma 12/01/2023 12:57:59 52 15-65 (pg/mL) Final Performing Location [facility] - [address] [place] [address]
--- OUTSIDE RECORDS SUMMARY | 2024-01-17 10:33 | External Medical Summary | Summary of Care ---
Author Name Unknown Organization [facility] Address [address] [place] [address] Phone [phone] Care Team Providers Care Awning Finisher Name Role Phone Kennedy Brooks MD Primary Care Provider [phone] Reason for Visit * Reason Onset Date Comments Referral 11/28/2023 Encounter Details Date Type Department Care Team ([facility] st Contact Info) Description 11/28/2023 Telephone General Surgery, [place] [address] [place] [address] Services, [facility] [place] [address] [place] [address] Referral Allergies Active Allergy Reactions Criticality Noted Date [...] on exertion) Take 1 Tablet by mouth in the morning. 12/07/2017 Active Diclofenac Sodium 1 % gelIndications:CMC [...] EVERY DAY 90 Tablet 2 04/03/2023 Active QUEtiapine Fumarate 200 MG Oral Tablet (SEROquel) Take 1 Tablet by mouth at bedtime. 90 Tablet 3 05/04/2023 Active Nystatin 877421 UNIT/GM External Powder (Nystop) Apply topically to affected area 3 times a day. 60 g 2 06/01/2023 Active Additional Information Patient taking differently:TopicalPRN, Reported on 10/09/2023 Torsemide 20 MG Oral Tablet (Demadex)Indications :Chronic diastolic heart failure (HCC) Take 1 Tablet by mouth daily AND 0.5 Tablets daily at noon. 135 Tablet 3 06/13/2023 Active tiZANidine HCl 4 MG Oral Tablet (Zanaflex) [...] Active Multi Vitamin Daily Oral Tablet Take by mouth daily. Active Citracal Petites/Vitamin D 200-6.25 MG-MCG Oral [...] THE MORNING 90 Tablet 3 11/15/2023 Active documented as of this encounter (statuses [...] mRNA, LNP-s, No Pre serve, 2-Dose Series (Pfizer) 01/08/2022,05/06/2021 COVID-19, MRNA-LNP, 23-24, P F, 52 [...] encounter Miscellaneous Notes * Telephone Encounter - Eloisa Page LPN - 12/01/2023 9:35 AM EDT Vmail received on INN line after business hours. Attempted contact again, with following results: Third attempt to contact pt - left messages on both primary number and secondary number asking for return call. Letter sent. Maame Page LPN Intake Nurse Navigator General Surgery [facility] 12/01/2023 * Telephone Encounter - Patty Workman OSA - 11/30/2023 9:32 AM EDT 2nd Attempted to contact patient to schedule appointment - left message on primary phone for patient toreturn call. Will offer appointment with first available provider. * Telephone Encounter - Patty Workman OSA - 11/28/2023 1:04 PM EDT Referral from: GI Nutrition Consult: [facility] Surgery For: Dr. Ochoa Attempted to contact patient to schedule appointment - left message on primary phone for patient toreturn call. Will offer appointment with first available provider. Patty Workman General Surgery and Breast Clinic [facility] documented in this encounter Plan of Treatment Upcoming Encounters Date Type Department Care Team (Late st Contact Info) Description 12/01/2023 11:40 AM EDT Office Visit Nephrology, [place] [address] [place] [address] Joaquin Shelley MD [facility] [place] [address] 12/05/2023 12:40 PM EDT Office Visit Podiatry [facility] [address] [place] [address] Samantha Borden DPM [address] [place] [address] 01/02/2024 11:00 AM EDT Office Visit Nutrition & Weight Management, [facility] [address] [place] [address] Sallie Marrero PA-C [address] [place] [address] 02/07/2024 2:00 PM EST Office Visit Cardiology, [facility] [address] [place] [address] Clementine Wang PA-C [address] [place] [address] 02/26/2024 2:00 PM EST Office Visit Family Practice, [place] [address] [facility], [place] [phone] Kennedy Brooks MD [address] [place] [address] 04/25/2024 2:00 PM EST Nurse Only Ancillary Department, [place] [address] [facility], [place] [address] [place], Nurse Annual Wellness [address] [place] [address] 06/11/2024 12:30 PM EDT Office Visit [facility] Disorders Ctr [facility] [place] [phone] Iwona Yanez CRNP [address] [place] [address] Scheduled Procedures Name Priority Associated Diagnoses Date/Ti [...] Visit 04/21/2024 04/21/2023 CKD HGB USE SMARTSET 35006 06/26/202406/26, 06/27/2023, 08/31/2022, Additional history exists CKD PHOS USE SMARTSET 19498 06/26/202406/05, 09/09/2020, 03/24/2020, Additional history exists HbA1c [...] this encounter Medical Devices Implanted Type Area Sfdc Technical Architect Device Identifier Shelf Expiration Date Model / Serial / Lot Lens Intraoc 20.0 - [id number] - [id number] Implanted:Qty: 1 on 01/02/2020 by Guero Bell MD at OR [facility] Left: Eye BAUSCH & LOMB 07/03/2024 [id number] / [id number] / [id number] Lens Intraoc 20.0 - [id number] - [id number] Implanted:Qty: 1 on 01/16/2020 by Guero Bell MD at OR [facility] Right: Eye BAUSCH & LOMB 08/03/2024 [id number] / [id number] / [id number] documented as of this encounter Advance Directives [...] Discussed due to patient's condition Care Teams Awning Finisher Relationship Specialty Start Date End Date Kennedy Brooks MD [address] [place] [address] PCP - General Family Medicine 04/23/18 documented as of this encounter
--- OUTSIDE RECORDS SUMMARY | 2024-01-17 10:34 | External Medical Summary | Summary of Care ---
Author Name Unknown Organization [facility] Address [address] [place] [address] Phone [phone] Care Team Providers Care Oil Heater Installer Name Role Phone Kennedy Brooks MD Primary Care Provider [phone] Reason for Referral * Evaluate & Treat - Unlimited Visits (Within 30 days (routine)) - Authorized Specialty Diagnoses / Procedures Referred By Contac t Referred To Contact General Surgery Diagnoses Morbid obesity with BMI of 45.0-49.9, adult (HCC) Madhu Portillo DO [address] [place] [address] Ben Ochoa MD [address] [place] [address] Referral ID Status Reason Start Date Expiration Date Visits Requested Visits Authorized [id number] Authorized Specialty Services Required 11/28/2023 999 999 Question Answer Referral Priority Within 30 days (routine) Where should this appointment be scheduled? [facility] What condition is the patient being seen for? MIS/Bariatric What condition is the patient being seen for? Bariatric Surgery Comments Green Light Status [facility] pt Encounter Details Date Type Department Care Team (Late st Contact Info) Description 11/28/2023 Orders Only General Surgery, [place] [address] [place] [address] Madhu Portillo DO [address] [place] [address] Morbid obesity with BMI of 45.0-49.9, adult ([facility])* Allergies Active Allergy Reactions Criticality Noted Date Comments Paroxetine Hydrochloride Hives 06/07/2007 documented as of this encounter (statuses as of 11/28/2023) Medications Medication Sig Dispensed Refills Start Date [...] bedtime. 90 Tablet 3 05/04/2023 Active Nystatin 788741 UNIT/GM External Powder (Nystop) Apply topically to [...] as of this encounter (statuses as of 11/28/2023) Active Problems Problem Noted Date Diagnosed Date [...] as of this encounter (statuses as of 11/28/2023) Resolved Problems Problem Noted Date Diagnosed Date [...] as of this encounter (statuses as of 11/28/2023) Immunizations Name Administration Dates Next Due COVID-19 mRNA, LNP-s, No Pre serve, 2-Dose Series ([place]) 01/08/2022,05/06/2021 COVID-19, MRNA-LNP, 23-24, P F, 52 [...] Visit Nephrology, [place] [address] [place] [address] Joaquin Shelley MD [address] [place] [address] 12/05/2023 12:40 PM EDT Office Visit Podiatry [facility] [address] [place] [address] Samantha Borden DPM [address] [facility] [place] [address] 01/02/2024 11:00 AM EDT Office Visit Nutrition & Weight Management, [facility] [place] [address] Sallie Marrero, PAJonna [address] [place] [address] 02/07/2024 2:00 PM EST Office Visit Cardiology, [facility] [address] [facility] [place] [address] Clementine Wang, PA-C [address] [place] [address] 02/26/2024 2:00 PM EST Office Visit [facility] [address] [place] [phone] Kennedy Brooks MD [address] [place], [place] [address] 04/25/2024 2:00 PM EST Nurse Only Ancillary Department, [place] [address] [facility] [address] [place], Nurse Annual Wellness [address] [facility] [place] [address] 06/11/2024 12:30 PM EDT Office Visit Sleep Disorders Ctr [facility] [address] [place] [phone] Iwona Yanez CRNP [address] [place] [address] Scheduled Procedures Name Priority Associated Diagnoses Date/Ti me COLONOSCOPY FLEXIBLE PROXIMAL DIAGNOSTIC Recall History of colon polyps Scheduled Referrals Name Type Priority Associated Diagnoses Orde r Schedule SURGERY REFERRAL OP Referral Within 30 da ys (routine) Morbid obesity with BMI of 45.0-49.9, adult (HCC) Ordered: 11/28/2023 Health Maintenance Due Date Last Done Comments [...] Visit 04/21/2024 04/21/2023 CKD HGB USE SMARTSET 72477 06/26/202406/26, 06/27/2023, 08/31/2022, Additional history exists CKD PHOS USE SMARTSET 36011 06/26/202406/05, 09/09/2020, 03/24/2020, Additional history exists HbA1c [...] this encounter Medical Devices Implanted Type Area Facilities Maintenance Technician Device Identifier Shelf Expiration Date Model / Serial / Lot Lens Intraoc 20.0 - [id number] - [id number] Implanted:Qty: 1 on 01/02/2020 by Guero Bell MD at OR [facility] Left: Eye BAUSCH & LOMB 07/03/2024 [id number] / [id number] / [id number] Lens Intraoc 20.0 - [id number] - [id number] Implanted:Qty: 1 on 01/16/2020 by Guero Bell MD at OR [facility] Right: Eye BAUSCH & LOMB 08/03/2024 [id number] / [id number] / [id number] documented as of this encounter Visit Diagnoses Diagnosis Morbid obesity with BMI of 45.0-49.9, adult (HCC)- Primary Morbid obesity documented in this encounter Advance [...] Discussed due to patient's condition Care Teams Oil Heater Installer Relationship Specialty Start Date End Date Kennedy Brooks MD [address] [place] [facility] [place] [address] PCP - General Family Medicine 04/23/18 documented as of this encounter
--- OUTSIDE RECORDS SUMMARY | 2024-01-17 10:34 | External Medical Summary ---
Author Name Unknown Address Unknown Organization [id number]:LABORATORY [facility] [place] - [address] [place] [id number] Laboratory Report Ordering Provider Test Date Status ELIDIA PLUNKETT 12/01/2023 12:57:59 Final Deficient: <20 ng/mL
Ins ufficient: 20-29 ng/mL
Recommended/Optimum:30-50 ng/mL

Vitamin D intoxication is rare. If suspicious of Vitamin D toxicity, evaluation of serum Calcium and PTH is recommended. Observation Date Value Abnormality Reference (Units ) Status 25-OH Vitamin D total 12/01/2023 12:57:59 103 >19 (ng/mL) Final Performing Location LABORATORY [facility] - [address] [place] [address]
--- OUTSIDE RECORDS SUMMARY | 2024-01-17 10:34 | External Medical Summary | Summary of Care ---
Author Name Unknown Organization [facility] Address [address] [place] [address] Phone [phone] Care Team Providers Care Hand Brim Ironer Name Role Phone Kennedy Brooks MD Primary Care Provider [phone] Reason for Visit * Reason Comments Follow Up Sleep Apnea Asthma Encounter Details Date Type Department Care Team (Late st Contact Info) Description 11/27/2023 10:00 AM EDT Office Visit Sleep Disorders Ctr [facility] [address] [place] [phone] Iwona Yanez CRNP [address] [place] [id number] Obstructive sleep apnea*; Nocturnal hypoxemia; Sleep-wake schedule disorder, delayed phase type; Restless legs syndrome (RLS); Chronic rhinitis; Chronic cough; Gastroesophageal reflux disease, unspecified whether esophagitis present; Chronic heart failure with preserved ejection fraction (HFpEF) ([facility]) Allergies Active Allergy Reactions Criticality Noted Date Comments Paroxetine Hydrochloride Hives 06/07/2007 documented as of this encounter (statuses as of 11/27/2023) Medications Medication Sig Dispensed Refills Start Date [...] bedtime. 90 Tablet 3 05/04/2023 Active Nystatin 118086 UNIT/GM External Powder (Nystop) Apply topically to [...] Auto-injector (Semaglutide-Weight Management)Indicatio ns:PAD (peripheral artery disease) ([facility]) Inject 0.25 mg under the skin once [...] as of this encounter (statuses as of 11/27/2023) Active Problems Problem Noted Date Diagnosed Date [...] Therapy: No beta-zakiya secondary to stress testing LIAS Inhibitor/ARB Therapy: Losartan Diuretic therapy: Torsemide Aldactone [...] as of this encounter (statuses as of 11/27/2023) Resolved Problems Problem Noted Date Diagnosed Date [...] as of this encounter (statuses as of 11/27/2023) Immunizations Name Administration Dates Next Due COVID-19 mRNA, LNP-s, No Pre serve, 2-Dose Series (Stratasan) 01/08/2022,05/06/2021 COVID-19, MRNA-LNP, 23-24, P F, 52 [...] Date Smoking Tobacco: Never Smokeless Tobacco: Never Tobacco Cessation:Counseling Given: Not Answered Alcohol Use Standard Drinks/Week Comments No 0 [...] Sign Reading Time Taken Comments Blood Pressure 140/80 11/27/2023 10:12 AM EDT Pulse 92 11/27/2023 10:12 AM EDT Temperature 36.2 C (97.1 F) 11/27/2023 10:12 AM E DT Respiratory Rate 16 11/27/2023 10:12 AM EDT Oxygen Saturation 92% 11/27/2023 10:12 AM EDT Inhaled Oxygen Concentration - - Weight 122.9 kg (271 lb) 11/27/2023 10:12 AM EDT Height 159.8 cm (5' 2.9") 11/27/2023 10:12 AM ED T Body Mass Index 48.16 11/27/2023 10:12 AM EDT documented in this encounter Patient Instructions * Patient Instructions* Iwona Yanez CRNP - 11/27/2023 10:57 AM EDT Check to see if you are taking levocetirizine for allergies - if not restart. Consider cutting back on Breo after fall allergies resolve. Restart if symptoms worsen. Check to make sure the humidifier tank is on correctly if the machine doesn't turn on. [facility] can help trouble shoot this and the oxygen concentrator not turning off When eligible for new headgear, change to DreamWear nasal pillow to see if this stays on better documented in this encounter Progress Notes * Iwnoa Yanez CRNP - 11/27/2023 10:00 AM EDT [facility] Paige Hendricks is a 68 year old female never smoker with chronic cough, mild persistent asthma, history of Covid 19 pnx requiring hospitalization in 2020, <6 mm lung nodules, resolved righthilar adenopathy from 10/2020 to 06/2021 and mild AMIRA with hypoxemia prescribed CPAP 7-12 cmH2O with 2 LPM oxygen. Medical history also includes multinodular goiter, autoimmune hypothyroidism, hyperlipidemia, hypertension, HFpEF, aortic enlargement, obesity, GERD, CKD, fibromyalgia with chronic diffuse pain, bipolar 2 disorder, depression. Pulmonary Symptoms: Notes recently starting with cough when she repositions to her sides when laying down. One recent episode of expectorating white phlegm, described as snotty, when sitting upright She denies wheezes. She denies hemoptysis She becomes short of breath with stairs at baseline or when sitting still. She has had 0 ER visits/hospitalization and 0 courses of prednisone related to their breathing in the past year Current inhalers are breo 100 qam and prn levalbuterol hFA (1-2x/week with noted benefit). She denies history of hay fever/seasonal allergies- doesn't think she's taking levocetirizine-previously reported as helpful, taking flonase daily, notes PND and rhinorrhea just recently starting She denies symptoms of acid reflux. Taking PPI BID, which continues to be helpful. Weight is down 27 lb since last visit, notes fluid retention in her feet, currently 271 lbs. Working with Nutrition/Weight Management. She is undecided on whether she wants to have weight loss surgery. Continues diuretics as prescribed. Sleep Symptoms & Treatment: CPAP is turning off after 4-5 seconds, occurring about 50% of the nights. She tried to get a hold of [employer] She's intolerant to use during hot weather. Fans used, has no AC. Continues to remove the mask during sleep, unknowingly. Wakes with it off. Bedtime is 3-4a Wakes 11a on off days - notes that she slept until 4p recently Has been off of work since October. Was waking at 7a on work days once a week (working 9-2p). Total sleep time is 7 hours. Rested on waking. Follows with Psychiatry. Quetiapine 300 mg and gabapentin 400 mg dosed around 10p. She watches tv, plays card game on computer, or does chores until she gets tired. Compliance Data: Report date: 11/21/2023 % total days used: 63 % days used > 4 hours: 7 Average hours per day used: 3 hours 9 mins Large leak: 28 L/min AHI: 6.2 Equipment: DME Provider: [employer] [facility] Device: [id number] aCPAP Settings: 7-12 cmH20 (previously lowered from 7 due to intolerance) Interface Type: ResMed P10 VALUE ENGINEER, didn't tolerate a DreamWear FFM in past Humidifier: 4 Cleaning: Washing by hand only Oxygen: 2 LPM bled through CPAP Problem List: Patient Active Problem List Diagnosis ADVANCE DIRECTIVE [...] kidney disease, stage 3b (HCC) Lung nodule Hilar adenopathy Major depressive disorder, recurrent, moderate (HCC) PAD (peripheral artery disease) (HCC) AMIRA (obstructive sleep apnea) Prediabetes Aortic root enlargement (HCC) Morbid obesity with BMI of 45.0-49.9, adult (HCC) Atherosclerosis of coronary artery Food insecurity Medications: Current Outpatient Medications Medication Sig Dispense Refill Spironolactone 25 MG Oral Tablet (Aldactone) TAKE 1 TABLET BY MOUTH EVERY DAY IN THE MORNING 90 Tablet 3 Wegovy 0.5 MG/0.5ML Subcutaneous Solution Auto-injector (Semaglutide-Weight Management) Inject 0.5 mg under the skin once a week for 28 days. 2 mL 0 Levothyroxine Sodium 100 MCG Oral Tablet (Levoxyl) TAKE 1 TABLET BY MOUTH EVERY DAY FIRST THING IN THE MORNING 90 Tablet 3 Omeprazole 20 MG Oral Capsule Delayed Release (PriLOSEC) TAKE 1 CAPSULE BY MOUTH IN THE MORNING AND1 CAPSULE BEFORE BEDTIME. TAKE 30 MINUTES BEFORE A MEAL.. 180 Capsule 1 Atorvastatin Calcium 40 MG Oral Tablet (Lipitor) Take 1 Tablet by mouth every evening. 90 Tablet 3 Wegovy 0.25 MG/0.5ML Subcutaneous Solution Auto-injector (Semaglutide-Weight Management) Inject 0.25 mg under the skin once a week. 6 mL 3 Citracal Petites/Vitamin D 200-6.25 MG-MCG Oral Tablet (Calcium Citrate-Vitamin D) Take 1 Tablet bymouth in the morning. Multi Vitamin Daily Oral Tablet Take by mouth daily. oxygen IN GAS 2 LPM bled through auto CPAP 7-12 cm H2O 1 Each 0 buPROPion HCl ER (SR) 100 MG Oral Tablet Extended Release 12 Hour (Wellbutrin SR) Take 1 Tablet by mouth in the morning. Gabapentin 400 MG Oral Capsule (Neurontin) Take 1 Capsule by mouth in the morning and 1 Capsule before bedtime. tiZANidine HCl 4 MG Oral Tablet (Zanaflex) Take 1 Tablet by mouth every 12 hours as needed for Muscle spasms. 40 Tablet 0 Torsemide 20 MG Oral Tablet (Demadex) Take 1 Tablet by mouth daily AND 0.5 Tablets daily at noon. 135 Tablet 3 Nystatin 737258 UNIT/GM External Powder (Nystop) Apply topically to affected area 3 times a day. (Patient taking differently: Apply topically to affected area as needed.) 60 g 2 QUEtiapine Fumarate 200 MG Oral Tablet (SEROquel) Take 1 Tablet by mouth at bedtime. 90 Tablet 3 Losartan Potassium 25 MG Oral Tablet (Cozaar) TAKE ONE TABLET BY MOUTH EVERY DAY 90 Tablet 2 Fluticasone Furoate-Vilanterol 100-25 MCG/ACT Inhalation Aerosol Powder Breath Activated (BREO ellipta) Inhale 1 Puff by mouth in the morning. 60 Each 5 Probiotic Daily Oral Capsule Take 1 Capsule by mouth in the morning. Xiidra 5 % Ophthalmic Solution (Lifitegrast) Instill 1 Drop into eye in the morning and 1 Drop before bedtime. 1 drop each eye in am and at bedtime. Polyethylene Glycol 3350 17 GM Oral Packet Take 1 Packet by mouth in the morning. CPAP every night at bedtime . Fluticasone Propionate 50 MCG/ACT Nasal Suspension Administer into each nostril 2 Sprays in the morning. 18.2 mL 11 Levalbuterol Tartrate 45 MCG/ACT Inhalation Aerosol (Xopenex HFA) Inhale 1 Puff by mouth every 4 hours as needed for Wheezing. 15 g 12 triamcinolone acetonide (ARISTOCORT) 0.1 % cream Apply topically to affected area 2 times a day. Toaffected area. (Patient taking differently: Apply topically to affected area as needed. To affectedarea.) 80 g 5 venlafaxine XR (EFFEXOR XR) 150 MG CP24 Take 1 Capsule by mouth in the morning. Take with 37.5 mg take with food. 30 Cap 5 Diclofenac Sodium 1 % gel Place 2 g topically on the skin 4 times a day as needed (arthritis). 100 g 11 aspirin enteric coated 81 MG TBEC Take 1 Tablet by mouth in the morning. VITAMIN D 1000 UNIT PO CAPS Take 1 Capsule by mouth in the morning and 1 Capsule before bedtime. 30Cap 11 No current facility-administered medications for this visit. Diagnostics: Sleep History/Testing: -Initially seen February 2021 with fatigue, long sleep times, likely snoring, RLS sxs. Marienthal 9, FOSQ 22. On doxepin 200 mg nightly for sleep per Psychiatry. -HST 03/25/2021: MIREILLE 5.7, SpO2 kervin 70% with 69 minutes <89%- poor airflow and oximetry signals for portions of the night which may have resulted in under- estimation of the MIREILLE -> started CPAP 4-20 cmH2O -low profile FFM felt too tight, mask fitting with nasal interface ordered, consider CPAP pillow 07/19/21 -Improved tolerance with nasal interface, nosebleeds once a month, was seen by ENT->nasal salinewith fluticasone nasal spray was helpful 10/2021 -Nocturnal oximetry ordered 03/2022 -> never completed -PSG 05/15/2023 (wt 298 lb): nasal CPAP 7 cm H2O with 1 LPM, no supine or REM sleep on final settingwith rAHI 5.1 with SpO2 <89% for 4 minutes, loss of REM atonia noted Labs: 09/2021: NE Rast and IgE wnl Pulmonary Function Test Results: Performed on 11/24/2021 BMI 47. Flow loops obstructive. Spirometry is normal. There is no significant bronchodilator response. Compared to prior PFT from 09/2019 there has been a significant improvement in the FVC.This interpretation has been electronically signed: Tin Cooper 11/30/2021 03:29:[address] scan: Performed on 06/21/2021 and 11/02/2020 Near resolution of multilobe pneumonia with only minimal residual mosaic pattern. Resolved hilar adenopathy. Nodules that could be seen are stable in comparison. Few nodules not see on earlier film likely due to pneumonia obscuring the nodule. Echocardiogram: Performed on 11/08/2023 Normal LVEF No inducible ischemia. No wall motion abnormalities No significant valvular heart disease Mildly enlarged aortic root at 4.0 cm and ascending aorta measuring 4.3 cm. No evidence of pulmonary hypertension Marienthal Sleepiness Scale Question 11/27/2023 10:20 AM EDT - Filed by Luciana Ortega LPN What is the chance you will doze off in the following situation? Sitting and reading Slight chance of dozing Watching TV High chance of dozing Sitting inactive in a public place, such as a theater or meeting No chance of dozing As a passenger in a car for an hour without a break Moderate chance of dozing Lying down to rest in the afternoon when circumstances permit No chance of dozing When sitting and talking to someone No chance of dozing When sitting quietly after lunch without alcohol Moderate chance of dozing In a car, while stopped for a few minutes in traffic No chance of dozing Score (range: 0 - 24) 8 Asthma Control Test Question 11/27/2023 10:21 AM EDT - Filed by Luciana Ortega LPN Please select the best response to the five questions below, by clicking the appropriate option button. In the past 4 weeks, how much of the time did your asthma keep you from getting as much done at work, school or at home? (3) Some of the time During the past 4 weeks, how often have you had shortness of breath? (1) More than once a day During the past 4 weeks, how often did your asthma symptoms (wheezing, coughing, shortness of breath, chest tightness or pain) wake you up at night or earlier than usual in the morning? (3) Once a week During the past 4 weeks, how often have you used your rescue inhaler or nebulizer medication (such as albuterol)? (2) 1 or 2 times per day How would you rate your asthma control during the past 4 weeks? (4) Well controlled Total ACT Adult Score (range: 5 - 25) 13 (Moderately Controlled) Total ACT Child Score (range: 0 - 27) Incomplete BP 140/80 | Pulse 92 | Temp 36.2 C (97.1 F) (Tympanic) | Resp 16 | Ht 1.598 m (5' 2.9") | Wt 122.9 kg (271 lb) | SpO2 92% | BMI 48.16 kg/m | BSA 2.34 m Assessment and Plan: Obstructive sleep apnea (Primary) Nocturnal hypoxemia - DURABLE MEDICAL EQUIPMENT *Fit for LivBlendsar VALUE ENGINEER interface *Service or replace CPAP unit as it is turning off after initially turning it on *Oxygen concentrator keeps running after she aparicio it off. Please service. -compliance is low as unit isn't turning on- instructed to remove humidifier and replace it as the machine may be powering off if the seals are not lined up right -usage is short as the mask is being removed in her sleep despite headgear fit being good- trial different mask, consider pinning hair up to prevent headgear from sliding up -increase use of CPAP with oxygen to include all periods of sleep opportunity -routine cleaning and change of supplies as needed was encouraged -continue to avoid engaging in activities that require full alertness when feeling sleepy or tired Sleep-wake schedule disorder, delayed phase type Can advance time forward to help realign her body clock but will need to be strict with her scheduling. Bright light exposure recommended on waking Restless legs syndrome (RLS) Reports good symptom control with gabapentin Ferritin 20 - iron would likely be helpful if symptoms worsen Chronic cough Reports symptom onset late summer early fall Restart levocetirizine as below Consider trial off of Breo, restart if needed - may benefit from this seasonally Chronic rhinitis Previously benefited from levocetirizine, unsure if she is currently taking it If she isn't taking it, would recommend restarting to see if again it is felt to be beneficial Continue sinus regimen with nasal saline, using fluticasone nasal OTC Gastroesophageal reflux disease, unspecified whether esophagitis present Encouraged lifestyle modifications Continues PPI BID per PCP Chronic heart failure with preserved ejection fraction (HFpEF) (HCC) Continue diuretics and lifestyle modifications per Cardiology Follow Up: Return in about 6 months (around 05/26/2024) for pulm/sleep return DELFINA Rios [facility] I spent a total of Greater than 55 mins (exact time 60 mins) on the date of service in preparation,delivery, and documentation of the care provided to Paige Hendricks excluding any time spent in the performance of separately billed services or time spent by another provider/QHP. documented in this encounter Nursing Notes * Luciana Ortega LPN - 11/27/2023 10:12 AM EDT Chief Complaint Patient presents with Follow Up Sleep Apnea Asthma MMRC Dyspnea Scale = 3 (I stop for breath after walking about 100 yards or after a few minutes on ground level) Interm History/Respiratory Symptoms Cough: occ-white Hemoptysis: no Sinus Symptoms: no Hospitalizations: no ED Trips: no Triggers: exertion Nocturnal: laying on side -SOB,wheeze and cough CPAP/BiPAP/O2: Cpap-O2 @ 2 lpm DME Supplier: [employer] Flu Vaccine: declined Travel Screening Question 11/27/2023 10:05 AM EDT - Filed by Patient Do you have any of the following new or worsening symptoms? None of these Have you recently been in contact with someone who was sick? No / Unsure Marienthal Sleepiness Scale Question 11/27/2023 10:20 AM EDT - Filed by Luciana Ortega LPN What is the chance you will doze off in the following situation? Sitting and reading Slight chance of dozing Watching TV High chance of dozing Sitting inactive in a public place, such as a theater or meeting No chance of dozing As a passenger in a car for an hour without a break Moderate chance of dozing Lying down to rest in the afternoon when circumstances permit No chance of dozing When sitting and talking to someone No chance of dozing When sitting quietly after lunch without alcohol Moderate chance of dozing In a car, while stopped for a few minutes in traffic No chance of dozing Score (range: 0 - 24) 8 Asthma Control Test Question 11/27/2023 10:21 AM EDT - Filed by Luciana Ortega LPN Please select the best response to the five questions below, by clicking the appropriate option button. In the past 4 weeks, how much of the time did your asthma keep you from getting as much done at work, school or at home? (3) Some of the time During the past 4 weeks, how often have you had shortness of breath? (1) More than once a day During the past 4 weeks, how often did your asthma symptoms (wheezing, coughing, shortness of breath, chest tightness or pain) wake you up at night or earlier than usual in the morning? (3) Once a week During the past 4 weeks, how often have you used your rescue inhaler or nebulizer medication (such as albuterol)? (2) 1 or 2 times per day How would you rate your asthma control during the past 4 weeks? (4) Well controlled Total ACT Adult Score (range: 5 - 25) 13 (Moderately Controlled) Total ACT Child Score (range: 0 - 27) Incomplete documented in this encounter Plan of Treatment Upcoming Encounters Date Type Department Care Team (Late st Contact Info) Description 12/01/2023 11:40 AM EDT Office Visit Nephrology, [address] [place] [address] Joaquin Shelley MD [address] [facility] [place] [address] 12/05/2023 12:40 PM EDT Office Visit Podiatry [facility] [address] [facility] [place] [address] Samantha Borden, DPAndreina [address] [place] [address] 01/02/2024 11:00 AM EDT Office Visit Nutrition & Weight Management, [facility] [address] [facility] [place] [address] Sallie Marrero, PA-C [address] [facility] [address] 02/07/2024 2:00 PM EST Office Visit Cardiology, [facility] [address] [facility] [place] [address] Clementine Wang, PA-C [address] [place] [address] 02/26/2024 2:00 PM EST Office Visit Family Practice, [place] [address] [place] [phone] Kennedy Brooks MD [address] [place] [address] 04/25/2024 2:00 PM EST Nurse Only Ancillary Department, [place] [address] [facility] [place] [address] [place], Nurse [facility] [address] [place] [address] 06/11/2024 12:30 PM EDT Office Visit Sleep Disorders Ctr [facility] [address] [place] [phone] Iwona Yanez CRNP [address] [place] [address] Scheduled Procedures Name Priority Associated Diagnoses Date/Ti [...] Visit 04/21/2024 04/21/2023 CKD HGB USE SMARTSET 64167 06/26/202406/26, 06/27/2023, 08/31/2022, Additional history exists CKD PHOS USE SMARTSET 29194 06/26/202406/05, 09/09/2020, 03/24/2020, Additional history exists HbA1c [...] this encounter Medical Devices Implanted Type Area Railroad Brake Repairer Device Identifier Shelf Expiration Date Model / Serial / Lot Lens Intraoc 20.0 - [id number] - [id number] Implanted:Qty: 1 on 01/02/2020 by Guero Bell MD at [facility] Left: Eye [employer] 07/03/2024 [id number] / [id number] / [id number] Lens Intraoc 20.0 - [id number] - [id number] Implanted:Qty: 1 on 01/16/2020 by Guero Bell MD at [facility] Right: Eye [employer] 08/03/2024 [id number] / [id number] / [id number] documented as of this encounter Visit Diagnoses Diagnosis Obstructive sleep apnea- Primary Obstructive sleep apnea (adult) (pediatric) Nocturnal hypoxemia Hypoxemia Sleep-wake schedule disorder, 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) documented in this encounter Advance Directives * [...] Discussed due to patient's condition Care Teams Hand Brim Ironer Relationship Specialty Start Date End Date Kennedy Brooks MD [address] [place] [address] PCP - General Family Medicine 04/23/18 documented as of this encounter
--- OUTSIDE RECORDS SUMMARY | 2024-01-17 10:34 | External Medical Summary | Summary of Care ---
Author Name Unknown Organization [facility] Address [address] [facility] [place] [address] Phone [phone] Care Team Providers Care Account Executive Metalworking Name Role Phone Kennedy Brooks MD Primary Care Provider [phone] Reason for Visit * Reason Onset Date Comments Durable Medical Equipment 11/27/2023 CPAP s ervice and mask Encounter Details Date Type Department Care Team (Late st Contact Info) Description 11/27/2023 Telephone Sleep Disorders Ctr [facility] [address] [place] [phone] Iwona Yanez CRNP [address] [place] [address] Durable Medical Equipment (CPAP service an... Allergies Active Allergy Reactions Criticality Noted Date [...] bedtime. 90 Tablet 3 05/04/2023 Active Nystatin 488307 UNIT/GM External Powder (Nystop) Apply topically to [...] sleep worse than normal") Medication Regimen: Beta Zakiay Therapy: No beta-zakiya secondary to stress testing [...] mRNA, LNP-s, No Pre serve, 2-Dose Series ([employer]) 01/08/2022,05/06/2021 COVID-19, MRNA-LNP, 23-24, P F, 52 [...] encounter Miscellaneous Notes * Telephone Encounter - Yohana Luu OSA - 11/27/2023 1:02 PM EDT DME order for CPAP mask fitting and service submitted to [employer]. documented in this encounter Plan of Treatment Upcoming Encounters Date Type Department Care Team (Late st Contact Info) Description 12/01/2023 11:40 AM EDT Office Visit [facility] [address] [place] [address] Joaquin Shelley MD 200 [facility] [place] [address] 12/05/2023 12:40 PM EDT Office Visit Podiatry [facility] [address] Samantha Borden, DPAndreina 132 [facility] [address] 01/02/2024 11:00 AM EDT Office Visit Nutrition & Weight Management, [facility] 132 [facility] [place] [address] Sallie Marrero, PA-C 132 [facility] [place] [address] 02/07/2024 2:00 PM EST Office Visit Cardiology, [facility] 132 [facility] [place] [address] Clementine Wang, PA-C 132 [facility] [address] 02/26/2024 2:00 PM EST Office Visit Family Practice, [place] [address] [place] [address] Kennedy Brooks MD [address] [place] [address] 04/25/2024 2:00 PM EST Nurse Only Ancillary Department, [place] [address] [place] [address] [place], Nurse [facility] [address] [place] [address] 06/11/2024 12:30 PM EDT Office Visit Sleep Disorders Ctr [facility] [address] [place] [phone] Iwona Yanez CRNP 132 [place] [address] Scheduled Procedures Name Priority Associated Diagnoses Date/Ti [...] Visit 04/21/2024 04/21/2023 CKD HGB USE SMARTSET 56537 06/26/202406/26, 06/27/2023, 08/31/2022, Additional history exists CKD PHOS USE SMARTSET 41121 06/26/202406/05, 09/09/2020, 03/24/2020, Additional history exists HbA1c [...] this encounter Medical Devices Implanted Type Area Capsule Machine Operator Device Identifier Shelf Expiration Date Model / Serial / Lot Lens Intraoc 20.0 - [id number] - [id number] Implanted:Qty: 1 on 01/02/2020 by Guero Bell MD at OR [facility] Left: Eye BAUSCH [employer] LOMB 07/03/2024 [id number] / [id number] / [id number] Lens Intraoc 20.0 - [id number] - [id number] Implanted:Qty: 1 on 01/16/2020 by Guero Bell MD at OR [facility] Right: Eye BAUSCH & LOMB 08/03/2024 [id number] / [id number] / [id number] documented as of this encounter Advance Directives [...] Discussed due to patient's condition Care Teams Account Executive Metalworking Relationship Specialty Start Date End Date Kennedy Brooks MD [address] [place] [address] PCP - General Family Medicine 04/23/18 documented as of this encounter
--- OUTSIDE RECORDS SUMMARY | 2024-01-17 10:34 | External Medical Summary ---
Author Name Unknown Address Unknown Organization K[facility] [place] [address] Laboratory Report Ordering Provider Test Date Status ELIDIA PLUNKETT 12/01/2023 12:57:59 Final Observation Date Value Abnormality Reference (Units ) Status SYNC LEUKOCYTES IN BLOOD BY AUTOMATED COUNT 12/01/2023 12:57:59 5.37 4.00-10.80 (K/uL) Final Segs 12/01/2023 12:57:59 63.7 40.0-75.0 (%) Final Lymphs % 12/01/2023 12:57:59 23.8 18.0-42.0 (%) Final Monos 12/01/2023 12:57:59 10.4 1.0-11.0 (%) Final Eosinophils 12/01/2023 12:57:59 1.9 0.0-6.0 (%) Final Basos 12/01/2023 12:57:59 0.2 0.0-2.0 (%) Final Absolute Segs 12/01/2023 12:57:59 3.42 1.80-7.70 (K/uL) Final Lymphs, absolute 12/01/2023 12:57:59 1.28 1.00-4.80 (K/ul) Final Monos, Abs 12/01/2023 12:57:59 0.56 0.00-1.10 (K/uL) Final Eos, Abs 12/01/2023 12:57:59 0.10 0.00-0.70 (K/uL) Final Basos, Abs 12/01/2023 12:57:59 0.01 0.00-0.20 (K/uL) Final Performing Location [facility] [place] [address]
--- OUTSIDE RECORDS SUMMARY | 2024-01-17 10:34 | External Medical Summary | Summary of Care ---
Author Name Unknown Organization [facility] Address [address] [place] [address] Phone [phone] Care Team Providers Care Pole Peeling Machine Operator Helper Name Role Phone Kennedy Brooks MD Primary Care Provider [phone] Reason for Visit * Reason Onset Date Comments [facility] 11/23/2023 Encounter Details Date Type Department Care Team (Late st Contact Info) Description 11/23/2023 Telephone Nutrition and Weight Management, [place] [address] [place], [place] [id number] Brianna Diehl RDN [address] [place] [address] [facility] Allergies Active Allergy Reactions Criticality Noted Date Comments Paroxetine Hydrochloride Hives 06/07/2007 documented as of this encounter (statuses as of 11/23/2023) Medications Medication Sig Dispensed Refills Start Date [...] bedtime. 90 Tablet 3 05/04/2023 Active Nystatin 240646 UNIT/GM External Powder (Nystop) Apply topically to [...] Auto-injector (Semaglutide-Weight Management)Indicatio ns:PAD (peripheral artery disease) ([facility]) Inject 0.25 mg under the skin once [...] as of this encounter (statuses as of 11/23/2023) Active Problems Problem Noted Date Diagnosed Date [...] recurrent, moderate 1 04/23/2021 Lung nodule 06/04/2021 Hilar adenopathy 06/04/2021 Chronic kidney disease, stage 3b 07/14/2020 [...] as of this encounter (statuses as of 11/23/2023) Resolved Problems Problem Noted Date Diagnosed Date [...] adult 07/12/2021 08/19/2021 Overview: Per Obesity protocol Morbid obesity 06/04/2021 07/15/2021 Overview: Per Obesity [...] as of this encounter (statuses as of 11/23/2023) Immunizations Name Administration Dates Next Due COVID-19 mRNA, LNP-s, No Pre serve, 2-Dose Series ([employer]ien [employer]) 01/08/2022,05/06/2021 COVID-19, MRNA-LNP, 23-24, P F, 52 [...] No 08/30/2023 Does the household have a caro centerr source of income? (Household - for ages [...] encounter Miscellaneous Notes * Telephone Encounter - Brianna Diehl RDN - 11/23/2023 2:38 PM EDT This patient has completed the 6 month pre-operative bariatric surgery process. The patient's insurance coverage is as follows: Payor: [employer]HP GOLD Plan: GHP GOLD SECURE 1 AND 3 MC-ND Product Type: *No Product type* Payor: [facility] Plan: [facility] PSYCH CARVEOUT Product Type: *No Product type* Payor: [employer] (formerly [employer]) [place] Plan: [employer]formerly [employer]) [facility] Product Type: HMO [facility]. Biranna Diehl RDN 11/23/2023 2:38 PM documented in this encounter Plan of Treatment Upcoming Encounters Date Type Department Care Team (Late st Contact Info) Description 11/27/2023 10:00 AM EDT Office Visit Sleep Disorders Ctr [facility] [address] [place] [phone] Iwona Yanez CRNP [address] [place] [address] 12/01/2023 11:40 AM EDT Office Visit Nephrology, [place] [address] [place] [address] Joaquin Shelley MD [address] [place] [address] 12/05/2023 12:40 PM EDT Office Visit Podiatry [facility] [place] [address] Samantha Borden DPM [address] [place] [address] 01/02/2024 11:00 AM EDT Office Visit Nutrition & Weight Management, [facility] [address] [place] [address] Sallie Marrero PA-C [address] [place] [address] 02/07/2024 2:00 PM EST Office Visit Cardiology, [facility] [address] [place] [address] Clementine Wang PA-C [address] [place] [address] 02/26/2024 2:00 PM EST Office Visit Family Practice, [place] [address] [place] [phone] Kennedy Brooks MD [address] [place] [address] 04/25/2024 2:00 PM EST Nurse Only Ancillary Department, [place] [address] [place] [address] [place], Nurse Annual Wellness [address] [facility] [place] [phone] Scheduled Procedures Name Priority Associated Diagnoses Date/Ti [...] Visit 04/21/2024 04/21/2023 CKD HGB USE SMARTSET 44059 06/26/202406/26, 06/27/2023, 08/31/2022, Additional history exists CKD PHOS USE SMARTSET 60971 06/26/202406/05, 09/09/2020, 03/24/2020, Additional history exists HbA1c [...] this encounter Medical Devices Implanted Type Area Heel Breaster Device Identifier Shelf Expiration Date Model / Serial / Lot Lens Intraoc 20.0 - [id number] - [id number] Implanted:Qty: 1 on 01/02/2020 by Guero Bell MD at OR [facility] Left: Eye BAUSCH & LOMB 07/03/2024 [id number] / [id number] / [id number] Lens Intraoc 20.0 - [id number] - [id number] Implanted:Qty: 1 on 01/16/2020 by Guero Bell MD at OR [facility] Right: Eye BAUSCH & LOMB 08/03/2024 [id number] / [id number] / [id number] documented as of this encounter Advance Directives [...] Discussed due to patient's condition Care Teams Pole Peeling Machine Operator Helper Relationship Specialty Start Date End Date Kennedy Brooks MD [address] [facility] [place] [address] PCP - General Family Medicine 04/23/18 documented as of this encounter
--- OUTSIDE RECORDS SUMMARY | 2024-01-17 10:34 | External Medical Summary | Summary of Care ---
Author Name Unknown Organization [facility] Address [address] [place] [address] Phone [phone] Care Team Providers Care Truck Driver Heavy Name Role Phone Kennedy Brooks MD Primary Care Provider [phone] Reason for Visit * Reason Onset Date Comments Referral 11/28/2023 Encounter Details Date Type Department Care Team (Late st Contact Info) Description 11/28/2023 Telephone General Surgery, [place] [address] [place] [address] Services, [facility] [address] [place] [address] Referral Allergies Active Allergy Reactions Criticality Noted [...] bedtime. 90 Tablet 3 05/04/2023 Active Nystatin 955750 UNIT/GM External Powder (Nystop) Apply topically to [...] encounter Miscellaneous Notes * Telephone Encounter - Patty Workman OSA - 11/28/2023 1:04 PM EDT Referral from: GI Nutrition Consult: [facility] Surgery For: Dr. Ochoa Attempted to contact patient to schedule appointment - left message on primary phone for patient toreturn call. Will offer appointment with first available provider. Patty Workman General Surgery and Breast Clinic [facility] documented in this encounter Plan of Treatment Upcoming Encounters Date Type Department Care Team (Late st Contact Info) Description 12/01/2023 11:40 AM EDT Office Visit [facility] [address] [place] [address] Joaquin Shelley MD [address] [place] [address] 12/05/2023 12:40 PM EDT Office Visit Podiatry [facility] 132 [place] [address] Samantha Borden DPM [address] [place] [address] 01/02/2024 11:00 AM EDT Office Visit Nutrition & Weight Management, [facility] 132 [place] [address] Sallie Marrero, JACKIE 132 [facility] [place] [address] 02/07/2024 2:00 PM EST Office Visit Cardiology, [facility] 132 [place] [address] Clementine Wang, PACadenC 132 [facility] [place] [address] 02/26/2024 2:00 PM EST Office Visit Family Practice, [place] [address] [place] [address] Kennedy Brooks MD [address] [place] [address] 04/25/2024 2:00 PM EST Nurse Only Ancillary Department, [place] [address] [place] [address] [place], Nurse Annual Wellness [address] [place] [address] 06/11/2024 12:30 PM EDT Office Visit Sleep Disorders Ctr [facility] [address] [place] [phone] Iwona Yanez CRNP [address] [place] [address] Scheduled Procedures Name Priority Associated Diagnoses Date/Ti [...] Visit 04/21/2024 04/21/2023 CKD HGB USE SMARTSET 86104 06/26/202406/26, 06/27/2023, 08/31/2022, Additional history exists CKD PHOS USE SMARTSET 36440 06/26/202406/05, 09/09/2020, 03/24/2020, Additional history exists HbA1c [...] this encounter Medical Devices Implanted Type Area Environmental Epidemiologist Device Identifier Shelf Expiration Date Model / Serial / Lot Lens Intraoc 20.0 - [id number] - [id number] Implanted:Qty: 1 on 01/02/2020 by Guero Bell MD at OR [facility] Left: Eye BAUSCH & LOMB 07/03/2024 [id number] / [id number] / [id number] Lens Intraoc 20.0 - [id number] - [id number] Implanted:Qty: 1 on 01/16/2020 by Guero Bell MD at OR [facility] Right: Eye BAUSCH & LOMB 08/03/2024 [id number] / [id number] / [id number] documented as of this encounter Advance Directives [...] Discussed due to patient's condition Care Teams Truck Driver Heavy Relationship Specialty Start Date End Date Kennedy Brooks MD [address] [place] [address] PCP - General Family Medicine 04/23/18 documented as of this encounter
--- OUTSIDE RECORDS SUMMARY | 2024-01-17 10:34 | External Medical Summary ---
Author Name Unknown Address Unknown Organization [facility] [place] [address] Laboratory Report Ordering Provider Test Date Status ELIDIA PLUNKETT 12/01/2023 12:57:59 Final Observation Date Value Abnormality Reference (Units ) Status BUN 12/01/2023 12:57:59 14 6-20 (mg/dL) Final Creatinine 12/01/2023 12:57:59 1.7 Above high normal 0.5-1.0 (mg/dL) Final Glomerular filtration rate/1.73 sq M.predicted [Volume Rate/Area] in Serum, Plasma or Blood by Creatinine-based formula (CKD-EPI) 12/01/2023 12:57:59 32 Below low normal >=60 (mL/min) Final eGFR is calculated based on the CKD-EPI 2020 equation. Sodium 12/01/2023 12:57:59 143 135-146 (m mol/L) Final Potassium 12/01/2023 12:57:59 4.4 3.5-5.1 (m mol/L) Final Cl 12/01/2023 12:57:59 103 98-107 (mm ol/L) Final CO2 12/01/2023 12:57:59 28 22-32 (mmo l/L) Final Anion gap 12/01/2023 12:57:59 12 7-15 (mmol /L) Final Glucose 12/01/2023 12:57:59 88 70-120 (mg /dL) Final Calcium 12/01/2023 12:57:59 9.2 8.4-10.2 ( mg/dL) Final Albumin 12/01/2023 12:57:59 3.7 Below low normal 3.8 -5.0 (g/dL) Final Phosphate 12/01/2023 12:57:59 3.8 2.5-4.8 (m g/dL) Final Performing Location [facility] [place] [address]
--- OUTSIDE RECORDS SUMMARY | 2024-01-17 10:34 | External Medical Summary | Summary of Care ---
Author Name Unknown Organization [facility] Address [address] [place] [address] Phone [phone] Care Team Providers Care Mastic Sprayer Name Role Phone Kennedy Brooks MD Primary Care Provider [phone] Reason for Visit * Reason Onset Date Comments Referral 11/28/2023 Encounter Details Date Type Department Care Team ([facility] st Contact Info) Description 11/28/2023 Telephone General Surgery, [place] [address] [place] [address] Services, [facility] [address] [place] [address] Referral Allergies Active Allergy Reactions Criticality Noted Date Comments Paroxetine Hydrochloride Hives 06/07/2007 documented as of this encounter (statuses as of 11/30/2023) Medications Medication Sig Dispensed Refills Start Date [...] bedtime. 90 Tablet 3 05/04/2023 Active Nystatin 911855 UNIT/GM External Powder (Nystop) Apply topically to [...] as of this encounter (statuses as of 11/30/2023) Active Problems Problem Noted Date Diagnosed Date [...] as of this encounter (statuses as of 11/30/2023) Resolved Problems Problem Noted Date Diagnosed Date [...] as of this encounter (statuses as of 11/30/2023) Immunizations Name Administration Dates Next Due COVID-19 [...] PM EDT Referral from: GI Nutrition Consult: [facility] Surgery For: Dr. Ochoa Attempted to contact patient to schedule appointment - left message on primary phone for patient toreturn call. Will offer appointment with first available provider. Patty Workman General Surgery and Breast Clinic [facility] documented in this encounter Plan of Treatment Upcoming Encounters Date Type Department Care Team (Late st Contact Info) Description 12/01/2023 11:40 AM EDT Office Visit Nephrology, [facility] [address] [place] [address] Joaquin Shelley MD 200 [facility] [place] [address] 12/05/2023 12:40 PM EDT Office Visit Podiatry [facility] [address] [place] [address] Samantha Borden DPM [address] [place] [address] 01/02/2024 11:00 AM EDT Office Visit Nutrition & Weight Management, [facility] [address] [place] [address] Sallie Marrero, PA-C [address] [place] [address] 02/07/2024 2:00 PM EST Office Visit Cardiology, [facility] 132 [place] [address] Clementine Wang, PA-C [address] [place] [address] 02/26/2024 2:00 PM EST Office Visit [place] [address] [place] [phone] Kennedy Brooks MD [address] [place] [address] 04/25/2024 2:00 PM EST Nurse Only Ancillary Department, [place] [address] [place] [address] [place], Nurse [facility] [address] [place] [address] 06/11/2024 12:30 PM EDT [facility] [address] [place] [phone] Iwona Yanez CRNP [address] [place] [address] Scheduled Procedures Name Priority Associated Diagnoses Date/Ti [...] Visit 04/21/2024 04/21/2023 CKD HGB USE SMARTSET 65846 06/26/202406/26, 06/27/2023, 08/31/2022, Additional history exists CKD PHOS USE SMARTSET 96316 06/26/202406/05, 09/09/2020, 03/24/2020, Additional history exists HbA1c [...] this encounter Medical Devices Implanted Type Area Tour Bus Driver/Guide Device Identifier Shelf Expiration Date Model / Serial / Lot Lens Intraoc 20.0 - [id number] - [id number] Implanted:Qty: 1 on 01/02/2020 by Guero Bell MD at OR [facility] Left: Eye BAUSCH & LOMB 07/03/2024 [id number] / [id number] / [id number] Lens Intraoc 20.0 - [id number] - [id number] Implanted:Qty: 1 on 01/16/2020 by Guero Bell MD at OR [facility] Right: Eye BAUSCH & LOMB 08/03/2024 [id number] / [id number] / [id number] documented as of this encounter Advance Directives [...] Discussed due to patient's condition Care Teams Mastic Sprayer Relationship Specialty Start Date End Date Kennedy Brooks MD [address] [facility] [place] [address] PCP - General Family Medicine 04/23/18 documented as of this encounter
--- OUTSIDE RECORDS SUMMARY | 2024-01-17 10:34 | External Medical Summary ---
Author Name Unknown Address Unknown Organization K09[facility] [place] [address] Laboratory Report Ordering Provider Test Date Status ELIDIA PLUNKETT 12/01/2023 12:57:59 Final Observation Date Value Abnormality Reference (Units ) Status WBC, Total 12/01/2023 12:57:59 5.37 4.00-10.8 0 (K/uL) Final RBC 12/01/2023 12:57:59 4.14 3.85-5.15 (M/uL) Final Hemoglobin 12/01/2023 12:57:59 13.1 12.0-15.3 (g/dL) Final HCT 12/01/2023 12:57:59 38.5 36.0-45.2 (%) Final MCV 12/01/2023 12:57:59 93.0 81.5-97.5 (fL) Final MCH 12/01/2023 12:57:59 31.6 27.0-34.0 (pg) Final MCHC 12/01/2023 12:57:59 34.0 32.0-36.0 (g/dL) Final RDW 12/01/2023 12:57:59 14.8 11.5-15.5 (%) Final Platelets 12/01/2023 12:57:59 236 140-400 (K /uL) Final MPV 12/01/2023 12:57:59 11.0 6.6-11.1 ( fL) Final Performing Location [facility] [place] [address]
--- OUTSIDE RECORDS SUMMARY | 2024-01-17 10:35 | External Medical Summary | Summary of Care ---
Author Name Unknown Organization [facility] Address [address] [place] [address] Phone [phone] Care Team Providers Care Mulcher Operator Name Role Phone Kennedy Brooks MD Primary Care Provider [phone] Reason for Referral * Evaluate & Treat - Unlimited Visits (Within 10 days (routine)) - Authorized Specialty Diagnoses / Procedures Referred By Ana cornelius Referred To Contact Podiatry Diagnoses Left foot pain Geraldo Decker MD [address] [place] [address] Referral ID Status Reason Start Date Expiration Date Visits Requested Visits Authorized [id number] Authorized Specialty Services Required 11/02/[phone] Question Answer Referral Priority Within 10 days (routine) Where should this appointment be scheduled? [facility] Which condition are you referring this patient for? General Foot Pain Reason for Visit * Reason Comments NEW PATIENT Left foot pain. Encounter Details Date Type Department Care Team (Late st Contact Info) Description 11/02/2023 1:00 PM EDT Office Visit Orthopaedics [facility] [address] [place] [address] Geraldo Decker MD [address] [place] [address] Foot sprain, left, initial encounter* Allergies Active Allergy Reactions Criticality Noted Date Comments Paroxetine Hydrochloride Hives 06/07/2007 documented as of this encounter (statuses as of 11/02/2023) Medications Medication Sig Dispensed Refills Start Date [...] the morning. 60 Each 5 11/23/2022 Active Spironolactone 25 MG Oral Tablet (Aldactone)Indicatio ns:Hypertensive heart and kidney disease with chronic diastolic congestive heart failure and stage 3b chronic kidney disease (HCC),Chronic diastolic heart failure (HCC) TAKE ONE TABLET BY MOUTH EVERY MORNING 90 Tablet 3 02/13/2023 Active Losartan Potassium 25 MG Oral Tablet (Cozaar)Indications: HTN, goal below 140/90 TAKE ONE TABLET BY MOUTH EVERY DAY 90 Tablet 2 04/03/2023 Active QUEtiapine Fumarate 200 MG Oral Tablet (SEROquel) Take 1 Tablet by mouth at bedtime. 90 Tablet 3 05/04/2023 Active Nystatin 961277 UNIT/GM External Powder (Nystop) Apply topically to [...] Auto-injector (Semaglutide-Weight Management)Indicatio ns:PAD (peripheral artery disease) ([facility]) Inject 0.25 mg under the skin [...] for 28 days. 2 mL 10/17/2023 Active documented as of this encounter (statuses as of 11/02/2023) Active Problems Problem Noted Date Diagnosed Date [...] as of this encounter (statuses as of 11/02/2023) Resolved Problems Problem Noted Date Diagnosed Date [...] as of this encounter (statuses as of 11/02/2023) Immunizations Name Administration Dates Next Due COVID-19 mRNA, LNP-s, No Pre serve, 2-Dose Series ([place]) 01/08/2022,05/06/2021 COVID-19, MRNA-LNP, 23-24, P F, 52 [...] as of this encounter Progress Notes * Geraldo Decker MD - 11/02/2023 1:42 PM EDT ORTHOPAEDIC SURGERY - Clinic Note SUBJECTIVE: Paige Hendricks is a 68 year old female. Chief Complaint Patient presents with NEW PATIENT Left foot pain. ASSESSMENT: (S94.792Z) Foot sprain, left, initial encounter (primary encounter diagnosis) PLAN: We discussed diagnosis and treatment options with the patient today. At this time we recommend thatshe go in a short walker boot with protected weight- bearing. Patient may use a knee scooter for ambulation. Although we do not see any evidence of significant fracture or Lisfranc injury we feel the patient would benefit from seeing podiatry for re-evaluation and further treatment management. There are no Patient Instructions on file for this visit. Follow Up: Return for Referral to podiatry. | For: Referral to podiatry HPI: This is a 68 year old female seen for consultation at the request of Kennedy Brooks MD with a 2 week(s) Hx of Left foot pain. Patient states that she got up after sitting for long period of timeand twisted her left foot. She states since the injury she has had difficulty with walking. She complains of pain over the midfoot region. Interval history - Nursing Notes: Yumiko Valentine LPN 11/02/23 1301 Signed Pt presents for left foot injury. 10/18/23. States she stood up but her foot was "asleep" twisted foot. Yumiko Rocha LPN. Review of Systems: Constitutional ROS: No fevers, sweats, or chills Cardiovascular ROS: No chest pain Gastrointestinal ROS: No abdominal pain Musculoskeletal/Extremities ROS: Chief Complaint Patient presents with NEW PATIENT Left foot pain. Neurologic ROS: Denies numbness and tingling Review of patient's allergies indicates: Allergen Reactions Paxil [Paroxetine Hydrochloride] Hives Current Outpatient Medications Medication Sig Dispense Refill VITAMIN D 1000 UNIT PO CAPS Take 1 Capsule by mouth in the morning and 1 Capsule before bedtime. 30Cap 11 aspirin enteric coated 81 MG TBEC Take 1 Tablet by mouth in the morning. Diclofenac Sodium 1 % gel Place 2 [...] mouth in the morning. 60 Each 5 Spironolactone 25 MG Oral Tablet (Aldactone) TAKE ONE TABLET BY MOUTH EVERY MORNING 90 Tablet 3 Losartan Potassium 25 MG Oral Tablet (Cozaar) TAKE ONE TABLET BY MOUTH EVERY DAY 90 Tablet 2 QUEtiapine Fumarate 200 MG Oral Tablet (SEROquel) Take 1 Tablet by mouth at bedtime. 90 Tablet 3 Nystatin 349917 UNIT/GM External Powder (Nystop) Apply topically to affected area 3 times a day. (Patient taking differently: Apply topically to affected area as needed.) 60 g 2 Torsemide 20 MG Oral Tablet (Demadex) Take 1 Tablet by mouth daily AND 0.5 Tablets daily at noon. 135 Tablet 3 tiZANidine HCl 4 MG Oral Tablet (Zanaflex) Take 1 Tablet by mouth every 12 hours as needed for Muscle spasms. 40 Tablet 0 buPROPion HCl ER (SR) [...] 0 Multi Vitamin Daily Oral Tablet Take by mouth daily. Citracal Petites/Vitamin D 200-6.25 MG-MCG Oral Tablet [...] No current facility-administered medications for this visit. Patient Active Problem List Diagnosis ADVANCE DIRECTIVE [...] (HCC) Atherosclerosis of coronary artery Food insecurity Past Medical History: Diagnosis Date Acquired absence of both cervix and uterus 2001 ovaries removed Depressive disorder, not elsewhere classified Fibromyalgia GERD (gastroesophageal reflux disease) HTN, goal below 130/80 Hypothyroidism LOC PRIM OSTEOARTH-HAND - [facility] grade 1-2 10/22/2010 duplicate Osteoarthrosis involving, or with mention of more than one site, but not specified as generalized, site unspecified(515.80) Sleep apnea, obstructive Past Surgical History: Procedure Laterality Date COLONOSCOPY, DIAGNOSTIC (RECTUM) 05/09/2018 adenomatous polyp, repeat 5 yrs/COLONOSCOPY FLEXIBLE PROXIMAL DIAGNOSTIC performed by Edgardo Messer MD at ENDOSCOPY [facility] DENTAL SURGERY PROCEDURE NEC Dental Surgery Procedure EGD, FLEXIBLE, DIAGNOSTIC N/A 10/11/2023 biopsies show mild gastritis/ESOPHAGOGASTRODUODENOSCOPY (EGD), FLEXIBLE, TRANSORAL, DIAGNOSTIC performed by Jan Haynes DO at OR [facility] HAND/FINGER SURGERY NEC 06/01/2011 right hand--Dr. Fuentes INJECT DX/THER SUBSTANCE INTERLAMINAR CERVICAL/THORACIC W IMAGE GUIDE 04/07/2022 INJECTION SPINE LUMBAR CERVICAL OR THORACIC performed by Ezra Harris DO at OR [facility] INJECT DX/THER SUBSTANCE INTERLAMINAR LUMBAR/SACRAL W IMAGE GUIDE 12/06/2021 INJECTION SPINE LUMBAR OR SACRAL performed by Ezra Harris DO at OR [facility] INJECT DX/THER SUBSTANCE INTERLAMINAR LUMBAR/SACRAL W IMAGE GUIDE 10/10/2022 INJECTION SPINE LUMBAR OR SACRAL performed by Ezra Harris DO at OR [facility] LAP;W/HYSTERECTOMY 2001 Hysterectomy Complete LAPAROSCOPY; CHOLECYSTECTOMY 2001 Cholecystectomy, Laproscopic MISCELLANEOUS ORDER ([facility] ONLY) colonoscopy 2011 [place] EXCISION OF LESION OF EYELID,(EXCEPT CHALAZION) WITHOUT CLOSURE OR WITH SIMPLE DIRECT CLOSURE. Bilateral 06/22/2022 Dr. Braun-excision both eyes REMOVAL OF EYELID LESION Bilateral 11/09/2022 Dr. Braun-excision of lesion OU REMOVE CATARACT, INSERT LENS PROSTH Left 01/02/2020 leftEXTRACAPSULAR CATARACT REMOVAL WITH INTRAOCULAR LENS performed by Guero Bell MD atOR [facility] REMOVE CATARACT, INSERT LENS PROSTH Right 01/16/2020 rightEXTRACAPSULAR CATARACT REMOVAL WITH INTRAOCULAR LENS performed by Guero Bell MD at OR [facility] UMBIL HERNIA REPAIR (REDUCIBLE) AGE 5+YR 2001 Umbilical Hernia Repair, age 7+ yr Social History Tobacco Use Smoking status: Never Smokeless tobacco: Never Vaping Use Vaping status: Never Used Substance Use Topics Alcohol use: No Drug use: No Family history: Noncontributory OBJECTIVE: Diagnostic Testing: Patient underwent x-rays of the left ankle. Those x-rays show no evidence fracture, no dislocation,no loose bodies. No degenerative changes. Patient also underwent x-rays of the left foot. The x-rays of the left foot not show any evidence fracture or dislocation. There is evidence of enthesopathy of the calcaneus. ROS: Constitional: No change in weight, No weakness, No fatigue, and No fevers, sweats, or chills Skin: No edema, No rash, and No itching Psychiatric: No depression, No anxiety, and No psychosis Examination: General: generally well-nourished and in no acute distress HEENT: normocephalic, atraumatic, EOMI, sclera anicteric. Psych: mood and affect normal , cooperative Card: Peripheral pulses: normal in affected extremity (s) Resp: equal chest rise, non-tachypneic, non-labored breathing Skin: no rash, normal Neuro: Coordination: normal; Sensation: normal on affected extremity (s) Skin: normal. Vital Signs: There were no vitals taken for this visit. Physical Exam: Right Ankle Exam Right ankle exam is normal. Range of Motion The patient has normal right ankle ROM. Muscle Strength The patient has normal right ankle strength. Left Ankle Exam Tenderness The patient is experiencing tenderness in the medial malleolus, deltoid, ATF and lateral malleolus. Swelling: mild (Ecchymosis and bruising over the MTP joints) Range of Motion Dorsiflexion: normal Plantar flexion: normal Eversion: normal Inversion: normal Muscle Strength The patient has normal left ankle strength. Other Erythema: present Sensation: normal Pulse: present Comments: Patient is diffusely tender over the midfoot and the ankle of the left. This chart was completed in part utilizing [employer] Speech Voice Recognition Software. Grammatical errors, random word insertions, pronoun errors, and incomplete sentences are an occasional consequence of this system due to software limitations, ambient noise, and hardware issues. Any formal questions or concerns about the content, text, or information contained within the body of this dictation should be directly addressed to the provider for clarification. Geraldo Decker MD Orthopaedics [address] [address] Orthopedic Sports Medicine Surgery 11/02/2023 documented in this encounter Nursing Notes * Yumiko Valentine LPN - 11/02/2023 12:56 PM EDT Pt presents for left foot injury. 10/18/23. States she stood up but her foot was "asleep" twisted foot. Yumiko Rocha LPN. documented in this encounter Plan of Treatment Upcoming Encounters Date Type Department Care Team (Late st Contact Info) Description 11/07/2023 1:20 PM EDT Office Visit Podiatry [facility] [address] [facility] [place] [address] Samantha Borden DPM 132 [facility] [place] [address] 11/08/2023 10:35 AM EDT [facility] 132 [facility] [place] [address] 11/23/2023 2:00 PM EDT Telemedicine Nutrition and Weight Management, [place] [address] [place] [address] Brianna Diehl, MARY [address] [place] [address] 11/27/2023 10:00 AM EDT Office Visit Sleep Disorders Ctr [facility] 132 [facility] [place] [phone] Iwona Yanez CRNP [facility] [place] [address] 12/01/2023 11:40 AM EDT Office Visit Nephrology, [place] [address] [place] [address] Joaquin Shelley MD [address] [place] [address] 01/02/2024 11:00 AM EDT Office Visit Nutrition & Weight Management, [facility] [address] [place] [address] Sallie Marrero PACadenC 132 [facility] [address] 02/07/2024 2:00 PM EST Office Visit Cardiology, [facility] 132 [facility] [place] [address] Clementine Wang PA-C [address] [facility] [place] [address] 02/26/2024 2:00 PM EST Office Visit Family Practice, [place] [address] [place] [address] Kennedy Brooks MD [address] [place] [address] 04/25/2024 2:00 PM EST Nurse Only Ancillary Department, [place] [address] [place] [address] [facility] Nurse Annual Wellness [address] [place] [address] Pending Results Name Type Priority Associated Diagnoses Date /Time XR FOOT 3 OR MORE VIEWS Medical Imaging Routine 11/02/2023 1:16 PM EDT XR ANKLE 3 OR MORE VIEWS Medical Imaging Routine 11/02/2023 1:35 PM EDT Scheduled Procedures Name Priority Associated Diagnoses Date/Ti me COLONOSCOPY FLEXIBLE PROXIMAL DIAGNOSTIC Recall History of colon polyps Scheduled Referrals Name Type Priority Associated Diagnoses Orde r Schedule PODIATRY REFERRAL OP Referral Within 10 days (routine) Ordered: 11/02/2023 Health Maintenance Due Date Last Done Comments Cologuard 2002 Fecal Occult Blood Test 2002 Sigmoidoscopy 2002 Colonoscopy 05/10/2023 05/09/2018, 05/09/2018 Colorectal Cancer Screening 05/10/2023 COVID-19 Vaccine ( season) 2023 02/28/2023, 01/08/2022, 05/06/2021 Mammogram 09/02/2023 09/01/2022, 08/05, 06/16/2021, Additional history exists Influenza Vaccine (FLU shot) (#1) 2023 02/22/2023 GFR 12/27/2023 06/27/2023, 04/06, 01/25/2023, Additional history exists Albumin/Creatinine Ratio 02/04/2024 023, 05/20/2021, 11/13/2017, Additional history exists Adult Wellness Visit 04/21/2024 04/21/2023 CKD HGB USE SMARTSET 81213 06/26/202406/26, 06/27/2023, 08/31/2022, Additional history exists CKD PHOS USE SMARTSET 16026 06/26/202406/05, 09/09/2020, 03/24/2020, Additional history exists HbA1c [...] this encounter Medical Devices Implanted Type Area Clerk Television Production Device Identifier Shelf Expiration Date Model / Serial / Lot Lens Intraoc 20.0 - [id number] - [id number] Implanted:Qty: 1 on 01/02/2020 by Guero Bell MD at OR [facility] Left: Eye [employer] 07/03/2024 [id number] / [id number] / [id number] Lens Intraoc 20.0 - [id number] - [id number] Implanted:Qty: 1 on 01/16/2020 by Guero Bell MD at OR [facility] Right: Eye [employer]CH [employer]OMB 08/03/2024 [id number] / [id number] / [id number] documented as of this encounter Visit Diagnoses Diagnosis Foot sprain, left, initial encounter- Primary documented in this encounter Advance Directives * [...] Discussed due to patient's condition Care Teams Mulcher Operator Relationship Specialty Start Date End Date Kennedy Brooks MD [address] [place] [facility] [place] [address] PCP - General Family Medicine 04/23/18 documented as of this encounter
--- OUTSIDE RECORDS SUMMARY | 2024-01-17 10:35 | External Medical Summary | Summary of Care ---
Author Name Unknown Organization [facility] Address [address] [facility] [address] Phone [phone] Care Team Providers Care Railroad Supervisor Of Engines Name Role Phone Kennedy Brooks MD Primary Care Provider [phone] Reason for Visit * Reason Onset Date Comments Test Results 11/10/2023 Encounter Details Date Type Department Care Team (Late st Contact Info) Description 11/10/2023 Telephone Cardiology, [facility] [address] [place] [address] Clementine Wang PA-C [address] [place] [address] Test Results Allergies Active Allergy Reactions Criticality Noted Date Comments Paroxetine Hydrochloride Hives 06/07/2007 documented as of this encounter (statuses as of 11/10/2023) Medications Medication Sig Dispensed Refills Start Date [...] bedtime. 90 Tablet 3 05/04/2023 Active Nystatin 429401 UNIT/GM External Powder (Nystop) Apply topically to [...] Management)Indicatio ns:PAD (peripheral artery disease) ([facility]) Inject 0.25 mg under the skin [...] as of this encounter (statuses as of 11/10/2023) Active Problems Problem Noted Date Diagnosed Date [...] as of this encounter (statuses as of 11/10/2023) Resolved Problems Problem Noted Date Diagnosed Date [...] as of this encounter (statuses as of 11/10/2023) Immunizations Name Administration Dates Next Due COVID-19 mRNA, LNP-s, No Pre serve, 2-Dose Series ([employer]) 01/08/2022,05/06/2021 COVID-19, MRNA-LNP, 23-24, P F, 52 [...] No 08/30/2023 Does the household have a [facility] source of income? (Household - for ages [...] Miscellaneous Notes * Telephone Encounter - Brianna Mercado CMA - 11/10/2023 3:37 PM EDT Letter mailed. * Telephone Encounter - Brianna Mercado CMA - 11/10/2023 3:37 PM EDT ----- Message from Clementine Wang sent at 11/09/2023 4:55 PM EDT ----- Dobutamine stress echo results reviewed Normal LVEF No inducible ischemia. No wall motion abnormalities No significant valvular heart disease Mildly enlarged aortic root at 4.0 cm and ascending aorta measuring 4.3 cm. Will monitor. No further cardiac testing warranted prior to potential bariatric surgery documented in this encounter Plan of Treatment Upcoming Encounters Date Type Department Care Team (Late st Contact Info) Description 11/23/2023 2:00 PM EDT Telemedicine Nutrition and Weight Management, [place] [address] [place] [address] Brianna Diehl, RDN [address] [place] [address] 11/27/2023 10:00 AM EDT Office Visit Sleep Disorders Ctr [facility] [place], [place] 132 [facility] [place] [phone] Iwona Yanez CRNP 132 [facility] [place] [address] 12/01/2023 11:40 AM EDT Office Visit Nephrology, [facility] 200 [facility] [place] [address] Joaquin Shelley MD [address] [facility] [place] [address] 12/05/2023 12:40 PM EDT Office Visit Podiatry [facility] 132 [facility] [place] [address] Samantha Borden DPM [address] [place] [address] 01/02/2024 11:00 AM EDT Office Visit Nutrition & Weight Management, [facility] [address] [facility] [place] [address] Sallie Marrero PA-C 132 [facility] [place] [address] 02/07/2024 2:00 PM EST Office Visit Cardiology, [facility] [address] [place] [address] Clementine Wang PA-C [address] [place] [address] 02/26/2024 2:00 PM EST Office Visit Family Practice, [place] [address] [place] [facility] [place] [phone] Kennedy Brooks MD [address] [place] [address] 04/25/2024 2:00 PM EST Nurse Only Ancillary Department, [place] [address] [facility] [place] [id number] [place], Nurse Annual Wellness [address] [place], [place] [id number] Scheduled Procedures Name Priority Associated Diagnoses Date/Ti [...] Visit 04/21/2024 04/21/2023 CKD HGB USE SMARTSET 28758 06/26/202406/26, 06/27/2023, 08/31/2022, Additional history exists CKD PHOS USE SMARTSET 69180 06/26/202406/05, 09/09/2020, 03/24/2020, Additional history exists HbA1c [...] this encounter Medical Devices Implanted Type Area Service Car Operator Device Identifier Shelf Expiration Date Model / Serial / Lot Lens Intraoc 20.0 - [id number] - [id number] Implanted:Qty: 1 on 01/02/2020 by Guero Bell MD at OR [facility] Left: Eye [employer] 07/03/2024 [id number] / [id number] / [id number] Lens Intraoc 20.0 - [id number] - [id number] Implanted:Qty: 1 on 01/16/2020 by Guero Bell MD at OR [facility] Right: Eye [employer]OM[employer] 08/03/2024 [id number] / [id number] / [id number] documented as of this encounter Advance Directives [...] Discussed due to patient's condition Care Teams Railroad Supervisor Of Engines Relationship Specialty Start Date End Date Kennedy Brooks MD [address] [facility] [place] [address] PCP - General Family Medicine 04/23/18 documented as of this encounter
--- OUTSIDE RECORDS SUMMARY | 2024-01-17 10:35 | External Medical Summary | Summary of Care ---
Author Name Unknown Organization [facility] Address [address] [place] [facility] [place] [address] Phone [phone] Care Team Providers Care Dry Color Tester Name Role Phone Kennedy Brooks MD Primary Care Provider [phone] Reason for Visit * Reason Onset Date Comments Advice 11/03/2023 Encounter Details Date Type Department Care Team (Late st Contact Info) Description 11/03/2023 Telephone Orthopaedics [facility] [address] [place] [address] Geraldo Decker MD [address] [place] [address] Advice Allergies Active Allergy Reactions Criticality Noted Date Comments Paroxetine Hydrochloride Hives 06/07/2007 documented as of this encounter (statuses as of 11/03/2023) Medications Medication Sig Dispensed Refills Start Date [...] bedtime. 90 Tablet 3 05/04/2023 Active Nystatin 353636 UNIT/GM External Powder (Nystop) Apply topically to [...] Management)Indicatio ns:PAD (peripheral artery disease) ([facility]) Inject 0.25 mg under the skin [...] as of this encounter (statuses as of 11/03/2023) Active Problems Problem Noted Date Diagnosed Date [...] as of this encounter (statuses as of 11/03/2023) Resolved Problems Problem Noted Date Diagnosed Date [...] as of this encounter (statuses as of 11/03/2023) Immunizations Name Administration Dates Next Due COVID-19 mRNA, LNP-s, No Pre serve, 2-Dose Series ([employer]) 01/08/2022,05/06/2021 COVID-19, MRNA-LNP, 23-24, P F, 52 [...] No 08/30/2023 Does the household have a [facility] source of income? (Household - for [...] encounter Miscellaneous Notes * Telephone Encounter - Yumiko Valentine LPN - 11/03/2023 4:18 PM EDT Completed [employer] knee scooter form and printed 11/02/[address] office note. Placed in Dr Decker desazael for signature. Yumiko kirk LPN * Telephone Encounter - Lilia Romero OSA - 11/03/2023 12:53 PM EDT Pt has [employer], order for Electric Knee Scooter needs [facility] go to [facility] andNeeds to be changed to Electronically Signed. documented in this encounter Plan of Treatment Upcoming Encounters Date Type Department Care Team (Late st Contact Info) Description 11/07/2023 1:20 PM EDT Office Visit Podiatry [facility] 132 [facility] [place] [address] Samantha Borden DPM 132 [facility] [place] [address] 11/08/2023 10:35 AM EDT Imaging Cardiac Studies, [facility] 132 [facility] [place] [address] 11/23/2023 2:00 PM EDT Telemedicine Nutrition and Weight Management, [place] [address] [place] [address] Brianna Diehl, MARY [address] [place] [address] 11/27/2023 10:00 AM EDT Office Visit Sleep Disorders Ctr [facility] 132 [facility] [place] [phone] Iwona Yanez CRNP [facility] [address] 12/01/2023 11:40 AM EDT Office Visit Nephrology, [facility] [address] [place] [address] Joaquin Shelley MD [address] [place] [address] 01/02/2024 11:00 AM EDT Office Visit Nutrition & Weight Management, [facility] 132 [facility] [place] [address] Sallie Marrero PA-C 132 [facility] [address] 02/07/2024 2:00 PM EST Office Visit Cardiology, [facility] [address] [place] [address] Clementine Wang PA-C [address] [place] [address] 02/26/2024 2:00 PM EST Office Visit Family Practice, [place] [address] [place] [phone] Kennedy Boroks MD [address] [place] [address] 04/25/2024 2:00 PM EST Nurse Only Ancillary Department, [place] [address] [place] [address] [place], Nurse Annual Well[facility] [address] [place] [address] Scheduled Procedures Name Priority Associated Diagnoses Date/Ti [...] Visit 04/21/2024 04/21/2023 CKD HGB USE SMARTSET 69747 06/26/202406/26, 06/27/2023, 08/31/2022, Additional history exists CKD PHOS USE SMARTSET 52303 06/26/202406/05, 09/09/2020, 03/24/2020, Additional history exists HbA1c [...] this encounter Medical Devices Implanted Type Area Fund Manager Device Identifier Shelf Expiration Date Model / Serial / Lot Lens Intraoc 20.0 - [id number] - [id number] Implanted:Qty: 1 on 01/02/2020 by Guero Bell MD at OR [facility] Left: Eye [employer]USCH [employer] LOMB 07/03/2024 [id number] / [id number] / [id number] Lens Intraoc 20.0 - [id number] - [id number] Implanted:Qty: 1 on 01/16/2020 by RayGuero menjivar MD at OR [facility] Right: Eye BAUSCH [employer] LOMB 08/03/2024 [id number] / [id number] / [id number] documented as of this encounter Advance Directives [...] due to patient's condition Care Teams Dry Color Tester Relationship Specialty Start Date End Date Kennedy Brooks MD [address] [place] [address] PCP - General Family Medicine 04/23/18 documented as of this encounter
--- OUTSIDE RECORDS SUMMARY | 2024-01-17 10:35 | External Medical Summary | Summary of Care ---
Author Name Unknown Organization [facility] Address [address] [place] [address] Phone [phone] Care Team Providers Care Finance Business Partner Name Role Phone Kennedy Brooks MD Primary Care Provider [phone] Reason for Visit * Reason Comments Weight Management Encounter Details Date Type Department Care Team (Late st Contact Info) Description 11/23/2023 2:00 PM EDT Telemedicine Nutrition and Weight Management, [place] [address] [place], [place] [id number] Brianna Diehl RDN [address] [place] [address] Morbid obesity due to excess calories (HCC)*; Body mass index (BMI) of 45.0-49.9 in adult (HCC) Allergies Active Allergy Reactions Criticality Noted [...] bedtime. 90 Tablet 3 05/04/2023 Active Nystatin 495382 UNIT/GM External Powder (Nystop) Apply topically to [...] mRNA, LNP-s, No Pre serve, 2-Dose Series ([employer]) 01/08/2022,05/06/2021 COVID-19, MRNA-LNP, 23-24, P F, 52 [...] as of this encounter Progress Notes * Brianna Diehl, MARY - 11/23/2023 2:07 PM EDT NUTRITION & WEIGHT MANAGEMENT PROGRESS NOTE Pre-operative Bariatric Surgery Program [facility] Name: Paige Hendricks Location: NUTRITION & WEIGHT MANAGEMENT, [facility] Date:11/23/23 Time: 2 pm Patient was identified at visit by name and date. Patient location: HOME. I was in a hospital or clinic location. After connecting through [employer],patient was verified with two unique identifiers. Patient (or authorized legal inside account representative) was then informed that this was a Telemedicine visit and being conducted confidentially over secure lines. Methods to assure confidentiality were taken. Patient acknowledged consent and understanding of pr ivacy and security of the Telemedicine visit. The patient agreed to participate. NUTRITION ASSESSMENT Social Demographics: Lives with grandson. Grandson is supportive of weight loss goals. Pt does the cooking and does the grocery shopping. 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 Barriers To Learning: None Special Education Needs: None The patient is preparing for bariatric surgery: Considering RYGB procedure Food allergies: No Supplements: Vit D Taking a MVI women's blend from [employer] one a day Citrical one a day Previous Challenges/Barriers to Healthier Lifestyle: Lost >50 lbs through a Wt loss program in [place] (supplements/bars, exercise,) Gobi supplement, trying to reduce portions. 11/23/23 -upgraded to green rdn -stopped wegovy, feels better off it 10/09/23 -light status, still yellow from RD -No show for surgery class, will get her rescheduled -Green from psych 08/31/23 06/28/23 -BME, Yellow today from RD -"Tired of being fat and not wear my clothes" -PCP told pt she could from having MBS -Will be starting semaglutide .25 mg -->Pt is off to a good start. She struggled with the quiz in the book despite RD providing the answers during our visit. I advised her to read the book and become very familiar and comfortable with the materials. I suspect obtaining the green status from RD could take a bit longer than most to ensure pt fully understands the necessary behaviors and complications that could arise if not followed after surgery. RD tried to keep conversation as simple as possible to help with pt understanding. 06/06/23 -Behavior class -increasing protein, grains, dairy -working on smaller portions -not using straw -added exercise - walking around the driveway 05/24/23 -Nutrition class Visit 04/26/23 The patient suffers from Morbid obesity Progress on goals from the previous visit: Needs to work on: Chewing Well: aim to follow 90% of the time (50% of the time now)--> following 75% of the time, goal is 90% of the time : Aim to follow 90% of the time (50% of the time now) ---> following 75% of the time, goal is 90% of the time Meal time to lasting 30 min (15-20 min right now) -->30 min meals Eliminating carbonation and caffeine --> no carbonation, drinking decaf tea No straws Describes typical diet history/24 hr recall Breakfast: Nothing gets up later in the morning None, gets up 11-1130 Snacks: gets up alter in the morning Lunch: cereal 1% milk 8 g Snacks: protein shake CIB 30 g Dinner: salad, frozen dinner 15-20 g Snacks: fruit, cheese stick, yogurt 6-12 g Drinks: 64 oz water Alcohol: None -->Continues to measure foods, finding it beneficial Restaurant meals: rare Protein: 60 g Water: 64 oz DIET RECALL INDICATES: Inadequate fiber intake Inadequate fruit and vegetable intake Portion control Good meal distribution Low caffeine intake Adequate fluid intake Adequate protein intake PHYSICAL ACTIVITY: injured her foot, some swelling ANTHROPOMETRICS: Initial clinic visit 04/26/2023 Weight 301 lbs Height 65" Body mass index is 50.19 kg/m. Current weight: 273 lbs MAXIM Weight: 279 lbs Date: 10/27 Weight changes: -6 lbs in last month Wt Readings from Last 10 Encounters: 10/11/23 126.6 kg (279 lb) 10/09/23 126.9 kg (279 lb 12.8 oz) 08/25/23 129 kg (284 lb 6.4 oz) 08/21/23 129.1 kg (284 lb 11.2 oz) 08/08/23 130 kg (286 lb 8 oz) 06/28/23 134.3 kg (296 lb) 06/23/23 133.4 kg (294 lb) 05/24/23 (!) 136.5 kg (301 lb) 05/11/23 135.6 kg (298 lb 14.4 oz) 04/26/23 (!) 136.8 kg (301 lb 9.6 oz) MNT: Calorie Controlled Diet, Low Fat Diet, High Fiber Diet, Good Nutrition, Nutrient Dense Diet, at least 60 grams Protein Patient is interested in the following treatment options for obesity: surgical options including Phuc-en-Y gastric bypass. NUTRITION PRESCRIPTION: RMR = 1526 --> x 1.2 activity factor = 1831 Kcals/day for weight maintenance -Calorie goal for weight loss = 1300 Kcals/day KNOWLEDGE ASSESSMENT: adequate knowledge BARRIERS TO LEARNING: None SPECIAL EDUCATION NEEDS: None NUTRITION DIAGNOSIS: Overweight/obesity related to excessive energy intake and physical inactivity as evidenced by BMI of 49.56 kg/m, Class III Obesity. NUTRITION INTERVENTION READINESS: GREEN Light. It is my professional opinion that there are no dietary contraindications to Paige Hendricks proceeding with the bariatric surgery process at this time. Patient is awarethat continued progress towards achieving and or maintaining weight loss goals and behaviors is expected and that failure to do so may result in a readiness change to a Yellow light. INSTRUCTED PT ON THESE NUTRITION HANDOUTS: None given PATIENT GOALS: Continue compliance with behavior changes Will check with medical team if cleared to be passed on to surgeon EXPECTED OUTCOMES: Demonstrated interest in learning. Expect compliance with diet recommendations. PLAN: return with anyone 1 month 15 minute return Brianna Diehl RD 11/23/2023 documented in this encounter Plan of Treatment Upcoming Encounters Date Type Department Care Team (Late st Contact Info) Description 11/27/2023 10:00 AM EDT Office Visit [facility]tr [facility] 132 [facility] [place] [phone] Iwona Yanez CRNP [address] [place] [address] 12/01/2023 11:40 AM EDT Office Visit NephKiely bailey [address] [place] [address] Joaquin Shelley MD 200 [facility] [place] [address] 12/05/2023 12:40 PM EDT Office [facility] [place] [address] Samantha Borden, KRYSTEN [address] [place] [address] 01/02/2024 11:00 AM EDT Office Visit Nutrition & Weight Management, [facility] 132 [facility] [place] [address] Sallie Marrero PA-C [address] [place] [address] 02/07/2024 2:00 PM EST Office Visit Cardiology, [facility] 132 [facility] [place] [address] Clementine Wang PA-C [facility] [place] [address] 02/26/2024 2:00 PM EST Office Visit Family Practice, [place] [address] [place] [address] Kennedy Brooks MD [address] [place] [address] 04/25/2024 2:00 PM EST Nurse Only Ancillary Department, [place] [address] [place] [address] [place], Nurse Annual Wellness [address] [place] [address] Scheduled Procedures Name Priority Associated Diagnoses Date/Ti [...] Visit 04/21/2024 04/21/2023 CKD HGB USE SMARTSET 05460 06/26/202406/26, 06/27/2023, 08/31/2022, Additional history exists CKD PHOS USE SMARTSET 01051 06/26/202406/05, 09/09/2020, 03/24/2020, Additional history exists HbA1c [...] this encounter Medical Devices Implanted Type Area Eeg Tech Device Identifier Shelf Expiration Date Model / Serial / Lot Lens Intraoc 20.0 - [id number] - [id number] Implanted:Qty: 1 on 01/02/2020 by Guero Bell MD at OR [facility] Left: Eye BAUSCH [employer] LOMB 07/03/2024 [id number] / [id number] / [id number] Lens Intraoc 20.0 - [id number] - [id number] Implanted:Qty: 1 on 01/16/2020 by Guero Bell MD at OR [facility] Right: Eye BAUSCH & LOMB 08/03/2024 [id number] / [id number] / [id number] documented as of this encounter Visit Diagnoses Diagnosis Morbid obesity due to excess calories (HCC)- Primary Body mass index (BMI) of 45.0-49.9 in adult (HCC) Body Mass Index 45.0-49.9, adult documented in this encounter Advance Directives * [...] Discussed due to patient's condition Care Teams Finance Business Partner Relationship Specialty Start Date End Date Kennedy Brooks MD [address] [facility] [place] [address] PCP - General Family Medicine 04/23/18 documented as of this encounter
--- OUTSIDE RECORDS SUMMARY | 2024-01-17 10:35 | External Medical Summary | Summary of Care ---
Author Name Unknown Organization [facility] Address [address] [place] [address] Phone [phone] Care Team Providers Care Online User Experience Strategist Name Role Phone Kennedy Brooks MD Primary Care Provider [phone] Reason for Visit * Reason Comments eRx-Medication Refill Encounter Details Date Type Department Care Team (Late st Contact Info) Description 11/14/2023 Refill Cardiology[facility] [address] [place] [address] Sony Olvera PA-C [address] [place] [address] Hypertensive heart and kidney disease with chronic diastolic congestive heart failure and stage 3b chronic kidney disease (HCC); Chronic diastolic heart failure (HCC) Allergies Active Allergy Reactions Criticality Noted Date Comments Paroxetine Hydrochloride Hives 06/07/2007 documented as of this encounter (statuses as of 11/15/2023) Medications Medication Sig Dispensed Refills Start Date End Date Status VITAMIN D 1000 UNIT PO CAPS Take 1 Capsule by mouth in the morning and 1 Capsule before bedtime. 30 Cap 11 2 Active aspirin enteric coated 81 MG TBECIndications:Pre -op testing,Abnormal nuclear stress test,HUGHES (dyspnea on exertion) Take 1 Tablet by mouth in the morning. 8 Active Diclofenac Sodium 1 % gelIndications:CMC [...] bedtime. 90 Tablet 3 4 Active Nystatin 300735 UNIT/GM External Powder (Nystop) Apply topically to affected area 3 times a day. 60 g 2 4 Active Additional Information Patient taking differently:TopicalPRN, Reported on 10/09/2023 Torsemide 20 MG Oral Tablet (Demadex)Indication s:Chronic diastolic heart failure (HCC) Take 1 Tablet by mouth daily AND 0.5 Tablets daily at noon. 135 Tablet 3 4 Active tiZANidine HCl 4 MG Oral Tablet [...] Auto-injector (Semaglutide-Weight Management)Indicati ons:PAD (peripheral artery disease) ([facility]) Inject 0.25 mg under the skin once [...] BY MOUTH EVERY MORNING 90 Tablet 3 3 11/15/19 24 Discontinued documented as of this encounter (statuses as of 11/15/2023) Active Problems Problem Noted Date Diagnosed Date [...] as of this encounter (statuses as of 11/15/2023) Resolved Problems Problem Noted Date Diagnosed Date [...] as of this encounter (statuses as of 11/15/2023) Immunizations Name Administration Dates Next Due COVID-19 mRNA, LNP-s, No Pre serve, 2-Dose Series ([employer]) 01/08/2022,05/06/2021 COVID-19, MRNA-LNP, 23-24, P F, 52 [...] encounter Miscellaneous Notes * Telephone Encounter - Sony Olvera PA-C - 11/15/2023 12:24 PM EDT Signed Prescriptions: Disp Refills Spironolactone 25 MG Oral Tablet (Aldacton*90 Tab*3 Sig: TAKE 1 TABLET BY MOUTH EVERY DAY IN THE MORNING Authorizing Provider: SONY OLVERA * Telephone Encounter - Tessie Tran CMA - 11/15/2023 12:07 PM EDTPending Prescriptions: Disp Refills Spironolactone 25 MG Oral Tablet [Pharmacy*90 Tab*3 Sig: TAKE 1 TABLET BY MOUTH EVERY DAY IN THE MORNING * Telephone Encounter - Tessie Tran CMA - 11/15/2023 12:06 PM EDT Did you pend patient's preferred pharmacy and medication before forwarding?yes Pharmacy: [id number] [address] [facility] Pending Prescriptions: Disp Refills Spironolactone 25 MG Oral Tablet (Aldacto*90 Tab*3 Sig: TAKE 1 TABLET BY MOUTH EVERY DAY IN THE MORNING Last Visit: 08/08/2023 (in office), Visit date not found (telemedicine) Next Visit: 02/07/2024 If no future appointments scheduled, and last appointment is greater than a year ago, please schedule patient for a follow-up appointment Last date the medication was ordered: 02-13-2023 Is this request for a controlled substance?No Urine Drug Screen:No results found. However, due to the size of the patient record, not all encounters were searched. Please check Results Review for a complete set of results. Patient Phone Numbers Labs: Lab Results Component Value Date/Time CREAT 1.6 (H) 06/27/2023 02:59 PM CREAT 1.15 11/02/2020 12:00 AM CREAT 1.5 (H) 03/24/2020 11:43 AM POTASSIUM 3.8 06/27/2023 02:59 PM POTASSIUM 3.5 11/02/2020 12:00 AM POTASSIUM 4.3 03/24/2020 11:43 AM TSH 0.44 06/27/2023 02:59 PM TSH 6.43 (H) 03/24/2020 11:43 AM LDL 51 06/27/2023 02:59 PM LDL 82 03/24/2020 11:36 AM LDLCALC 49.80 10/14/2018 12:00 AM ALT 19 06/27/2023 02:59 PM ALT 13 08/07/2018 11:35 AM HGBA1C 5.9 (H) 06/27/2023 02:59 PM HGBA1C 5.7 11/18/2010 11:07 AM documented in this encounter Plan of Treatment Upcoming Encounters Date Type Department Care Team (Late st Contact Info) Description 11/23/2023 2:00 PM EDT Telemedicine Nutrition and Weight Management, [place] [address] [address] [place] [address] Brianna Diehl RDN [address] [place] [address] 11/27/2023 10:00 AM EDT [facility] [place] [phone] Iwona Yanez CRNP [address] [place] [id number] 12/01/2023 11:40 AM EDT Office Visit Nephrology, [place] [address] [place] [address] Joaquin Shelley MD [address] [place] [address] 12/05/2023 12:40 PM EDT Office Visit [facility] 132 [facility] [place] [address] Samantha Borden, DPM 132 [facility] [place] [address] 01/02/2024 11:00 AM EDT Office Visit Nutrition & [facility], [facility] 132 [facility] [place] [address] Sallie Marrero, JACKIE 132 [facility] [place] [address] 02/07/2024 2:00 PM EST Office Visit Cardiology, [facility] 132 [facility] [place] [address] Sony lOvera, PAJonna 132 [facility] [address] 02/26/2024 2:00 PM EST Office Visit Family [facility], [place] [address] [place] [address] Kennedy Brooks MD [address] [place] [address] 04/25/2024 2:00 PM EST Nurse Only Ancillary Department, [place] [address] [place] [address] [place], Nurse Annual Wellness [address] [place] [address] Scheduled Procedures Name Priority Associated Diagnoses Date/Ti [...] Visit 04/21/2024 04/21/2023 CKD HGB USE SMARTSET 67953 06/26/202406/26, 06/27/2023, 08/31/2022, Additional history exists CKD PHOS USE SMARTSET 88863 06/26/202406/05, 09/09/2020, 03/24/2020, Additional history exists HbA1c [...] this encounter Medical Devices Implanted Type Area Machine Shop Instructor Device Identifier Shelf Expiration Date Model / Serial / Lot Lens Intraoc 20.0 - [id number] - [id number] Implanted:Qty: 1 on 01/02/2020 by Guero Bell MD at OR [facility] Left: Eye [employer]OM[employer] 07/03/2024 [id number] / [id number] / [id number] Lens Intraoc 20.0 - [id number] - [id number] Implanted:Qty: 1 on 01/16/2020 by Guero Bell MD at OR [facility] Right: Eye [employer]OMB 08/03/2024 [id number] / [id number] / [id number] documented as of this encounter Visit Diagnoses Diagnosis Hypertensive heart and kidney disease with chronic diastolic congestive heart failure and stage 3b chronic kidney disease (HCC) Chronic diastolic heart failure (HCC) Chronic diastolic heart failure documented in this encounter Advance Directives * [...] Discussed due to patient's condition Care Teams Online User Experience Strategist Relationship Specialty Start Date End Date Kennedy Brooks MD [address] [facility] [place] [address] PCP - General Family Medicine 04/23/18 documented as of this encounter
--- OUTSIDE RECORDS SUMMARY | 2024-01-17 10:35 | External Medical Summary | Summary of Care ---
Author Name Unknown Organization [facility] Address [address] [place] [address] Phone [phone] Care Team Providers Care Auto Washer Name Role Phone Kennedy Brooks MD Primary Care Provider [phone] Reason for Visit * Reason Comments NEW PATIENT L foot * Evaluate & Treat - Unlimited Visits (Within 10 days (routine)) - Authorized Specialty Diagnoses / Procedures Referred By Ana cornelius Referred To Contact Podiatry Diagnoses Left foot pain Geraldo Decker MD [address] [place] [address] Referral ID Status Reason Start Date Expiration Date Visits Requested Visits Authorized [id number] Authorized Specialty Services Required 11/02/[phone] Encounter Details Date Type Department Care Team (Late st Contact Info) Description 11/07/2023 1:20 PM EDT Office Visit Podiatry [facility] [address] [place] [address] Samantha Borden DPM [address] [place] [address] Acute left ankle pain*; Injury of left ankle, initial encounter; Sprain of anterior talofibular ligament of left ankle, initial encounter Allergies Active Allergy Reactions Criticality Noted Date Comments Paroxetine Hydrochloride Hives 06/07/2007 documented as of this encounter (statuses as of 11/08/2023) Medications Medication Sig Dispensed Refills Start Date [...] bedtime. 90 Tablet 3 05/04/2023 Active Nystatin 021467 UNIT/GM External Powder (Nystop) Apply topically to [...] Auto-injector (Semaglutide-Weight Management)Indicatio ns:PAD (peripheral artery disease) ([facility]) Inject 0.25 mg under the [...] as of this encounter (statuses as of 11/08/2023) Active Problems Problem Noted Date Diagnosed Date [...] as of this encounter (statuses as of 11/08/2023) Resolved Problems Problem Noted Date Diagnosed Date [...] as of this encounter (statuses as of 11/08/2023) Immunizations Name Administration Dates Next Due COVID-19 mRNA, LNP-s, No Pre serve, 2-Dose Series ([employer]) 01/08/2022,05/06/2021 COVID-19, MRNA-LNP, 23-24, P F, 52 [...] of this encounter Progress Notes * Samantha Borden DPM - 11/07/2023 1:36 PM EDT Podiatry New Patient Note [employer] (mytaxi)[facility] Name: Paige Hendricks : 1955 Date: 11/07/2023 [...] in flip flops. Denies any other complaints. Past Medical History: [...] performed by Edgardo Messer MD at ENDOSCOPY [facility] DENTAL SURGERY PROCEDURE NEC Dental Surgery Procedure EGD, FLEXIBLE, DIAGNOSTIC N/A 10/11/2023 biopsies show mild gastritis/ESOPHAGOGASTRODUODENOSCOPY (EGD), FLEXIBLE, TRANSORAL, DIAGNOSTIC performed by Jan Haynes DO at OR [facility] HAND/FINGER SURGERY NEC 06/01/2011 right hand--Dr. Fuentes INJECT DX/THER SUBSTANCE INTERLAMINAR CERVICAL/THORACIC W IMAGE GUIDE 04/07/2022 INJECTION SPINE LUMBAR CERVICAL OR THORACIC performed by Ezra Harris DO at OR [facility] INJECT DX/THER SUBSTANCE INTERLAMINAR LUMBAR/SACRAL W IMAGE GUIDE 12/06/2021 INJECTION SPINE LUMBAR OR SACRAL performed by Ezra Harris DO at OR [facility] INJECT DX/THER SUBSTANCE INTERLAMINAR LUMBAR/SACRAL W IMAGE GUIDE 10/10/2022 INJECTION SPINE LUMBAR OR SACRAL performed by Ezra Harris DO at OR [facility] LAP;W/HYSTERECTOMY 2001 Hysterectomy Complete LAPAROSCOPY; CHOLECYSTECTOMY 2001 Cholecystectomy, Laproscopic MISCELLANEOUS ORDER (HS ONLY) colonoscopy 2012 [place] EXCISION OF LESION OF EYELID,(EXCEPT CHALAZION) WITHOUT CLOSURE OR WITH SIMPLE DIRECT CLOSURE. Bilateral 06/22/2022 Dr. Braun-excision both eyes REMOVAL OF EYELID LESION Bilateral 11/09/2022 Dr. Braun-excision of lesion OU REMOVE CATARACT, INSERT LENS PROSTH Left 01/02/2020 leftEXTRACAPSULAR CATARACT REMOVAL WITH INTRAOCULAR LENS performed by Guero Bell MD atOR [facility] REMOVE CATARACT, INSERT LENS PROSTH Right 01/16/2020 rightEXTRACAPSULAR CATARACT REMOVAL WITH INTRAOCULAR LENS performed by Guero Bell MD at OR [facility] UMBIL HERNIA REPAIR (REDUCIBLE) AGE 5+YR 2001 Umbilical Hernia Repair, age 7+ yr Family History Problem Relation Name Age of Onset Cancer Mother ovarian, liver Cancer Father lung, esophageal, liver ca Heart Disorder Father Heart disease Sister Stents Social History Socioeconomic History Marital status: Number of children: 2 Occupational History Occupation: [employer] Employer: [employer] Tobacco Use Smoking status: Never Smokeless tobacco: [...] Stability Do you currently live in a jail or have no steady place to sleep [...] mouth at bedtime. 90 Tablet 3 Nystatin 040481 UNIT/GM External Powder (Nystop) Apply topically to [...] with the pt. All questions answered. - Dispensed a black lace up ankle brace and educated pt on the importance of compression. - WBAT in good, supportive shoes. - OTC pain medication PRN. - Pt to RTC in 4 weeks. Instructed to call with any problems or questions. Possible PT if no improvement. Samantha Borden DPM Referring: Geraldo Decker MD documented in this encounter Nursing Notes * Karuna Zazueta LPN - 11/07/2023 1:15 PM EDT Pt presents for new vsiit, referred by Dr Decker. On 10/18/2023, pt got up after sitting for long period of time and twisted her L foot. Had x-ray 11/02/2023. Was advised to wear a boot, thought she had one, is unable to locate it. documented in this encounter Miscellaneous Notes * Addendum Note - Lara Ibarra LPN - 11/08/2023 3:10 PM EDTAddended by: LARA IBARRA on: 11/08/2023 03:10 PM Modules accepted: Orders documented in this encounter Plan of Treatment Upcoming Encounters Date Type Department Care Team (Late st Contact Info) Description 11/23/2023 2:00 PM EDT [facility] [place] [address] [place] [address] Brianna Diehl RDN [address] [place] [address] 11/27/2023 10:00 AM EDT Office Visit Sleep Disorders Ctr Mamta Zarate [place] [address] [place] [address] Iwona Yanez CRNP [address] [facility] [place] [address] 12/01/2023 11:40 AM EDT Office Visit Nephrology, [address] [place], [place] [address] Joaquin Shelley MD [address] [facility] [place] [address] 12/05/2023 12:40 PM EDT Office Visit Podiatry [facility] [address] [facility] [place] [address] Samantha Borden DPM [address] [place] [address] 01/02/2024 11:00 AM EDT Office Visit Nutrition & Weight Management, [facility] [address] [place] [address] Sallie Marrero, PACadenC [address] [place] [address] 02/07/2024 2:00 PM EST Office Visit Cardiology, [facility] [address] [place] [address] Clementine Wang, PA-C [address] [facility] [address] 02/26/2024 2:00 PM EST Office Visit Family Practice, [place] [address] [place] [address] Kennedy Brooks MD [address] [place] [address] 04/25/2024 2:00 PM EST Nurse Only Ancillary Department, [place] [address] [place] [address] [place], Nurse Annual Wellness [address] [place] [address] Scheduled Procedures Name Priority Associated Diagnoses Date/Ti [...] Visit 04/21/2024 04/21/2023 CKD HGB USE SMARTSET 02476 06/26/202406/26, 06/27/2023, 08/31/2022, Additional history exists CKD PHOS USE SMARTSET 13895 06/26/202406/05, 09/09/2020, 03/24/2020, Additional history exists HbA1c [...] this encounter Medical Devices Implanted Type Area Small Products Ii Assembler Device Identifier Shelf Expiration Date Model / Serial / Lot Lens Intraoc 20.0 - [id number] - [id number] Implanted:Qty: 1 on 01/02/2020 by Guero Bell MD at OR [facility] Left: Eye BAUSCH & LOMB 07/03/2024 [id number] / [id number] / [id number] Lens Intraoc 20.0 - [id number] - [id number] Implanted:Qty: 1 on 01/16/2020 by Guero Bell MD at OR [facility] Right: Eye BAUSCH & LOMB 08/03/2024 [id number] / [id number] / [id number] documented as of this encounter Visit Diagnoses Diagnosis Acute left ankle pain- Primary Injury of left ankle, initial encounter Sprain of anterior talofibular ligament of left ankle, initial encounter documented in this encounter Advance Directives * [...] Discussed due to patient's condition Care Teams Auto Washer Relationship Specialty Start Date End Date Kennedy Brooks MD [address] [place] [address] PCP - General Family Medicine 04/23/18 documented as of this encounter
--- OUTSIDE RECORDS SUMMARY | 2024-01-17 10:35 | External Medical Summary | Summary of Care ---
Author Name Unknown Organization [facility] Address [address] [place] [facility] [place] [address] Phone [phone] Care Team Providers Care Account Manager Employee Benefits Name Role Phone Kennedy Brooks MD Primary Care Provider [phone] Reason for Visit * Reason Onset Date Comments Test Results 11/10/2023 Encounter Details Date Type Department Care Team (Late st Contact Info) Description 11/10/2023 Telephone Cardiology, [facility] [address] [place] [address] Clementine Wang PA-C [address] [place] [address] Test Results Allergies Active Allergy Reactions Criticality [...] bedtime. 90 Tablet 3 05/04/2023 Active Nystatin 937275 UNIT/GM External Powder (Nystop) Apply topically to [...] Auto-injector (Semaglutide-Weight Management)Indicatio ns:PAD (peripheral artery disease) ([facility]) Inject 0.25 mg under the [...] mRNA, LNP-s, No Pre serve, 2-Dose Series ([employer]) 01/08/2022,05/06/2021 COVID-19, MRNA-LNP, 23-24, P F, 52 [...] No 08/30/2023 Does the household have a [facility] hospital[facility] source of income? (Household - for [...] encounter Miscellaneous Notes * Telephone Encounter - Hayde Garibay LPN - 11/10/2023 3:33 PM EDT letter * Telephone Encounter - Hayde Garibay LPN - 11/10/2023 3:31 PM EDT ----- Message from Clementine Wang [...] PM EDT Telemedicine Nutrition and Weight Management, [place] [address] [place] [address] Brianna Diehl, RDN [address] [place] [address] 11/27/2023 10:00 AM EDT Office Visit Sleep Disorders Ctr Mamta Zarate, [place] 132 [facility] [place] [phone] Iwona Yanez CRNP 132 [facility] [place] [address] 12/01/2023 11:40 AM EDT Office Visit Nephrology, [facility] [address] [facility] [place] [address] Joaquin Shelley MD [address] [facility] [place] [address] 12/05/2023 12:40 PM EDT Office Visit Podiatry [facility] [address] [facility] [place] [address] Samantha Borden DPM [address] [place] [address] 01/02/2024 11:00 AM EDT Office Visit Nutrition & Weight Management, [facility] [address] [facility] [place] [address] Sallie Marrero PA-C 132 [facility] [place] [address] 02/07/2024 2:00 PM EST Office Visit Cardiology, [facility] [address] [place] [address] Clementine Wang PA-C [address] [place] [address] 02/26/2024 2:00 PM EST Office Visit Family Practice, [place] [address] [place] [facility] [place] [phone] Kennedy Brooks MD [address] [place] [address] 04/25/2024 2:00 PM EST Nurse Only Ancillary Department, [place] [address] [facility] [place] [phone] [place], Nurse Annual Wellness [address] [place], [place] [phone] Scheduled Procedures Name Priority Associated Diagnoses Date/Ti [...] Visit 04/21/2024 04/21/2023 CKD HGB USE SMARTSET 15953 06/26/202406/26, 06/27/2023, 08/31/2022, Additional history exists CKD PHOS USE SMARTSET 33356 06/26/202406/05, 09/09/2020, 03/24/2020, Additional history exists HbA1c [...] this encounter Medical Devices Implanted Type Area Structural Steel Worker Apprentice Device Identifier Shelf Expiration Date Model / Serial / Lot Lens Intraoc 20.0 - [id number] - [id number] Implanted:Qty: 1 on 01/02/2020 by Guero Bell MD at OR [facility] Left: Eye BAUSCH & LOMB 07/03/2024 [id number] / [id number] / [id number] Lens Intraoc 20.0 - [id number] - [id number] Implanted:Qty: 1 on 01/16/2020 by Guero Bell MD at OR [facility] Right: Eye BAUSCH & LOMB 08/03/2024 [id number] / [id number] / [id number] documented as of this encounter Advance Directives [...] due to patient's condition Care Teams Account Manager Employee Benefits Relationship Specialty Start Date End Date Kennedy Brooks MD [address] [facility] [place] [address] PCP - General Family Medicine 04/23/18 documented as of this encounter
--- OUTSIDE RECORDS SUMMARY | 2024-01-17 10:35 | External Medical Summary | Summary of Care ---
Author Name Unknown Organization [facility] Address [address] [place] [place] [address] Phone [phone] Care Team Providers Care Manager Enterprise Name Role Phone Kennedy Brooks MD Primary Care Provider [phone] Reason for Visit * Reason Comments NEW PATIENT L foot * Evaluate & Treat - Unlimited Visits (Within 10 days (routine)) - Authorized Specialty Diagnoses / Procedures Referred By Ana cornelius Referred To Contact Podiatry Diagnoses Left foot pain Geraldo Decker MD [address] [place] [address] Referral ID Status Reason Start Date Expiration Date Visits Requested Visits Authorized [id number] Authorized Specialty Services Required 11/02/[phone] Encounter Details Date Type Department Care Team (Late st Contact Info) Description 11/07/2023 1:20 PM EDT Office Visit Podiatry [facility] [address] [place] [address] Samantha Borden DPM [address] [place] [...] bedtime. 90 Tablet 3 05/04/2023 Active Nystatin 737720 UNIT/GM External Powder (Nystop) Apply topically to [...] mRNA, LNP-s, No Pre serve, 2-Dose Series ([employer]) 01/08/2022,05/06/2021 COVID-19, MRNA-LNP, 23-24, P F, 52 [...] 9:59 AM EDT Sexual Orientation Straight 10/29/2018 9 :59 AM EDT Job Start Date Occupation Industry Not on file Not on file Not on file documented as of this encounter Progress Notes * Samantha Borden DPM - 11/07/2023 1:36 PM EDT Podiatry New [email or web address] [facility] Name: Paige Hendricks : 1955 Date: 11/07/2023 [...] performed by Edgardo Messer MD at ENDOSCOPY [facility] DENTAL SURGERY PROCEDURE NEC Dental Surgery Procedure EGD, FLEXIBLE, DIAGNOSTIC N/A 10/11/2023 biopsies show mild gastritis/ESOPHAGOGASTRODUODENOSCOPY (EGD), FLEXIBLE, TRANSORAL, DIAGNOSTIC performed by Jan Haynes DO at OR [facility] HAND/FINGER SURGERY NEC 06/01/2011 right hand--Dr. Fuentes INJECT DX/THER SUBSTANCE INTERLAMINAR CERVICAL/THORACIC W IMAGE GUIDE 04/07/2022 INJECTION SPINE LUMBAR CERVICAL OR THORACIC performed by Ezra Harris DO at OR [facility] INJECT DX/THER SUBSTANCE INTERLAMINAR LUMBAR/SACRAL W IMAGE GUIDE 12/06/2021 INJECTION SPINE LUMBAR OR SACRAL performed by Ezra Harris DO at OR [facility] INJECT DX/THER SUBSTANCE INTERLAMINAR LUMBAR/SACRAL W IMAGE GUIDE 10/10/2022 INJECTION SPINE LUMBAR OR SACRAL performed by Ezra Harris DO at OR [facility] LAP;W/HYSTERECTOMY 2001 Hysterectomy Complete LAPAROSCOPY; CHOLECYSTECTOMY 2001 Cholecystectomy, Laproscopic MISCELLANEOUS ORDER (HS ONLY) colonoscopy 2012 [place] EXCISION OF LESION OF EYELID,(EXCEPT CHALAZION) WITHOUT CLOSURE OR WITH SIMPLE DIRECT CLOSURE. Bilateral 06/22/2022 Dr. Braun-excision both eyes REMOVAL OF EYELID LESION Bilateral 11/09/2022 Dr. Braun-excision of lesion OU REMOVE CATARACT, INSERT LENS PROSTH Left 01/02/2020 leftEXTRACAPSULAR CATARACT REMOVAL WITH INTRAOCULAR LENS performed by Guero Bell MD atOR [facility] REMOVE CATARACT, INSERT LENS PROSTH Right 01/16/2020 rightEXTRACAPSULAR CATARACT REMOVAL WITH INTRAOCULAR LENS performed by Guero Bell MD at OR [facility] UMBIL HERNIA REPAIR (REDUCIBLE) AGE 5+YR 2001 Umbilical Hernia Repair, age 7+ yr Family History Problem Relation Name Age of Onset Cancer Mother ovarian, liver Cancer Father lung, esophageal, liver ca Heart Disorder Father Heart disease Sister Stents Social History Socioeconomic History Marital status: Number of children: 2 Occupational History Occupation: [employer] Employer: [employer] Tobacco Use Smoking status: Never Smokeless tobacco: [...] mouth at bedtime. 90 Tablet 3 Nystatin 413978 UNIT/GM External Powder (Nystop) Apply topically to [...] to locate it. documented in this encounter Plan of Treatment Upcoming Encounters Date Type Department Care Team (Late st Contact Info) Description 11/08/2023 10:35 AM EDT Imaging Cardiac Studies, [facility] [address] 11/23/2023 2:00 PM EDT Telemedicine Nutrition and Weight Management, [place] [address] [place] [address] Brianna Diehl RDN [address] [place] [address] 11/27/2023 10:00 AM EDT Office Visit Sleep Disorders Ctr Mamta Zarate, [place] [address] [facility] [place] [phone] Iwona Yanez CRNP [facility] [place] [address] 12/01/2023 11:40 AM EDT Office Visit Nephrology, [place] [address] [place] [address] Joaquin Shelley MD [address] [place] [address] 12/05/2023 12:40 PM EDT Office Visit Podiatry [facility] [address] [place] [address] Samantha Borden, DPAndreina [address] [facility] [place] [address] 01/02/2024 11:00 AM EDT Office Visit Nutrition & Weight Management, [facility] [address] [place] [address] Sallie Marrero, PACadenC [address] [facility] [place] [address] 02/07/2024 2:00 PM EST Office Visit Cardiology, [facility] [address] [place] [address] Clementine Wang, PAJonna [address] [facility] [place] [address] 02/26/2024 2:00 PM EST Office Visit Family Practice, [place] [address] [place] [address] Kennedy Brooks MD [address] [place] [address] 04/25/2024 2:00 PM EST Nurse Only Ancillary Department, [place] [address] [place] [address] [place], Nurse Annual Wellness [address] [place] [address] Scheduled Procedures Name Priority Associated Diagnoses Date/Ti [...] Visit 04/21/2024 04/21/2023 CKD HGB USE SMARTSET 74195 06/26/202406/26, 06/27/2023, 08/31/2022, Additional history exists CKD PHOS USE SMARTSET 08569 06/26/202406/05, 09/09/2020, 03/24/2020, Additional history exists HbA1c [...] this encounter Medical Devices Implanted Type Area Electronic Publishing Specialist Device Identifier Shelf Expiration Date Model / Serial / Lot Lens Intraoc 20.0 - [id number] - [id number] Implanted:Qty: 1 on 01/02/2020 by Guero Bell MD at OR [facility] Left: Eye BAUSCH & LOMB 07/03/2024 [id number] / [id number] / [id number] Lens Intraoc 20.0 - [id number] - [id number] Implanted:Qty: 1 on 01/16/2020 by Guero Bell MD at OR [facility] Right: Eye BAUSCH & LOMB 08/03/2024 [id number] / [id number] / [id number] documented as of this encounter Visit Diagnoses [...] Discussed due to patient's condition Care Teams Manager Enterprise Relationship Specialty Start Date End Date Kennedy Brooks MD [address] [place] [address] PCP - General Family Medicine 04/23/18 documented as of this encounter
--- OUTSIDE RECORDS SUMMARY | 2024-01-17 10:36 | External Medical Summary | Summary of Care ---
Author Name Unknown Organization [facility] Address [address] [place] [address] Phone [phone] Care Team Providers Care Channel Marketing Program Manager Name Role Phone Kennedy Brooks MD Primary Care Provider Reason for Visit * Reason Onset Date Comments Advice 10/17/2023 Re: CPAP orders Encounter Details Date Type Department Care Team (Late st Contact Info) Description 10/17/2023 Telephone [facility] [address] [place] [address] Kennedy Brooks MD [address] [place] [address] Advice (Re: CPAP orders) Allergies Active Allergy Reactions Criticality Noted Date Comments Paroxetine Hydrochloride Hives 06/07/2007 documented as of this encounter (statuses as of 10/23/2023) Medications Medication Sig Dispensed Refills Start Date [...] bedtime. 90 Tablet 3 05/04/2023 Active Nystatin 515126 UNIT/GM External Powder (Nystop) Apply topically to [...] Auto-injector (Semaglutide-Weight Management)Indicatio ns:PAD (peripheral artery disease) ([facility]) Inject 0.25 mg under the [...] as of this encounter (statuses as of 10/23/2023) Active Problems Problem Noted Date Diagnosed Date [...] as of this encounter (statuses as of 10/23/2023) Resolved Problems Problem Noted Date Diagnosed Date [...] as of this encounter (statuses as of 10/23/2023) Immunizations Name Administration Dates Next Due COVID-19 mRNA, LNP-s, No Pre serve, 2-Dose Series ([employer]) 01/08/2022,05/06/2021 COVID-19, MRNA-LNP, 23-24, P F, 52 [...] Telephone Encounter - Yohana Luu OSA - 10/23/2023 1:14 PM EDT DME order entered into [employer] * Telephone Encounter - Maggie Stubbs LPN - 10/23/2023 12:37 PM EDT From [employer], "The office notes for resupply have to be sent through [employer] dai * Telephone Encounter - Yohana Luu OSA - 10/23/2023 11:31 AM EDT Waiting to submit DME until the answer to this is received. * Telephone Encounter - Maggie Stubbs LPN - 10/20/2023 9:22 AM EDT Email sent to Dai at [facility], asking for clarification. * Telephone Encounter - Iwona Yanez CRNP - 10/20/2023 8:50 AM EDT Current machine is from 2021, AirSense 11. Compliance reviewed in [employer]. Compliance hasn't been met. Please clarifiy the need for CPAP order. Does she need to requalify due to low compliance with new sleep testing and F2F? Or do they just need a new order? Order written for supplies. * Telephone Encounter - Kennedy Brooks MD - 10/18/2023 8:32 PM EDT This request should go to sleep medicine * Telephone Encounter - Yue Cuenca LPN - 10/18/2023 4:25 PM EDT Patient aware and verbalized understanding, States that sleep medicine is who initially ordered theCPAP and supplies. Could these orders be completed by Sleep Medicine? Please advise. * Telephone Encounter - Ana Gomez LPN - 10/18/2023 11:41 AM EDT left message on machine for pt to call office Attempted to call patient, there was no answer, left voicemail. When patient returns call, ok for AMIRA to relay message, please refer to below documentation. If needed, can transfer to dedicated nurse line. We need a new DME order for a C-pap machine and the supplies the go with it. Pended two DME's one for the C-pap machine and one for the supplies. Thanks * Telephone Encounter - Adrian Andrade OSA - 10/17/2023 11:17 AM EDT Reji from [employer] calling in to speak to a provider in reference to patient's C-Pap machine. documented in this encounter Plan of Treatment Upcoming Encounters Date Type Department Care Team (Late st Contact Info) Description 10/27/2023 1:00 PM EDT Imaging Cardiac Studies, [facility] [place] [facility] [address] 11/23/2023 2:00 PM EDT Telemedicine Nutrition and Weight Management, [place] [address] [place] [address] Brianna Diehl, MARY [address] [place] [address] 11/27/2023 10:00 AM EDT Office Visit [facility] Ctr [facility] [place] [facility] [id number] Iwona Yanez CRNP [facility] [address] 12/01/2023 11:40 AM EDT Office Visit Nephrology, Kiley Gavin [address] [place] [address] Joaquin Shelley MD [address] [place] [address] 01/02/2024 11:00 AM EDT Office Visit Nutrition & Weight Management, [facility] [place] [address] Sallie Marrero PA-C [address] [place] [address] 02/07/2024 2:00 PM EST Office Visit Cardiology, [facility] [address] [place] [address] Clementine Wang, JACKIE [facility] [place] [address] 02/26/2024 2:00 PM EST Office Visit Family Practice, [place] [address] [place] [address] Kennedy Brooks MD [address] [place] [address] 04/25/2024 2:00 PM EST Nurse Only Ancillary Department, [place] [address] [place] [address] [place], Nurse [facility] [address] [place] [address] Scheduled Procedures Name Priority Associated Diagnoses Date/Ti [...] Visit 04/21/2024 04/21/2023 CKD HGB USE SMARTSET 96937 06/26/202406/26, 06/27/2023, 08/31/2022, Additional history exists CKD PHOS USE SMARTSET 49081 06/26/202406/05, 09/09/2020, 03/24/2020, Additional history exists HbA1c 06/26/2024 06/27/2023, 11/18/2010 TSH 06/26/2024 06/27/2023, 05/05, 09/23/2021, Additional history exists Depression Monitoring 08/29/2024 08/30/2023 DTaP,Tdap,and Td Vaccines (3 - Td or Tdap) 10/28/2029 [...] this encounter Medical Devices Implanted Type Area Administration Specialist Device Identifier Shelf Expiration Date Model / Serial / Lot Lens Intraoc 20.0 - [id number] - [id number] Implanted:Qty: 1 on 01/02/2020 by Guero Bell MD at OR [facility] Left: Eye BAUSCH & LOMB 07/03/2024 [id number] / [id number] / [id number] Lens Intraoc 20.0 - [id number] - [id number] Implanted:Qty: 1 on 01/16/2020 by Guero Bell MD at OR [facility] Right: Eye BAUSCH & LOMB 08/03/2024 [id number] / [id number] / [id number] documented as of this encounter Advance Directives [...] Discussed due to patient's condition Care Teams Channel Marketing Program Manager Relationship Specialty Start Date End Date Kennedy Brooks MD [address] [facility] [place] [address] PCP - General Family Medicine 04/23/18 documented as of this encounter
--- OUTSIDE RECORDS SUMMARY | 2024-01-17 10:36 | External Medical Summary | Summary of Care ---
Author Name Unknown Organization [facility] Address [address] [place] [facility] [place] [address] Phone [phone] Care Team Providers Care Career Technical Counselor Name Role Phone Kennedy Brooks MD Primary Care Provider [phone] Encounter Details Date Type Department Care Team (Late st Contact Info) Description 10/20/2023 Orders Only Sleep Disorders Ctr [facility] [address] [place] [address] Iwona Yanez CRNP [address] [place] [address] Obstructive sleep apnea* Allergies Active Allergy Reactions Criticality Noted Date Comments Paroxetine Hydrochloride Hives 06/07/2007 documented as of this encounter (statuses as of 10/20/2023) Medications Medication Sig Dispensed Refills Start Date [...] bedtime. 90 Tablet 3 05/04/2023 Active Nystatin 422589 UNIT/GM External Powder (Nystop) Apply topically to [...] Auto-injector (Semaglutide-Weight Management)Indicatio ns:PAD (peripheral artery disease) ([facility]) Inject 0.25 mg under the skin once [...] as of this encounter (statuses as of 10/20/2023) Active Problems Problem Noted Date Diagnosed Date [...] as of this encounter (statuses as of 10/20/2023) Resolved Problems Problem Noted Date Diagnosed Date [...] as of this encounter (statuses as of 10/20/2023) Immunizations Name Administration Dates Next Due COVID-19 mRNA, LNP-s, No Pre serve, 2-Dose Series ([employer]) 01/08/2022,05/06/2021 COVID-19, MRNA-LNP, 23-24, P F, 52 [...] No 08/30/2023 Does the household have a [facility] source of income? (Household - for [...] 10/27/2023 1:00 PM EDT Imaging Cardiac Studies, [facility] 132 [facility] [place] [address] 11/23/2023 2:00 PM EDT Telemedicine Nutrition and Weight Management, [place] [address] [place] [address] Brianna Diehl RDN [address] [facility] [place] [address] 12/01/2023 11:40 AM EDT Office Visit Nephrology, Kiley Gavin [address] [place] [address] Joaquin Shelley MD [address] [place] [address] 01/02/2024 11:00 AM EDT Office Visit Nutrition & Weight Management, [facility] [address] [facility] [place] [address] Sallie Marrero PAJonna [address] [place] [address] 02/07/2024 2:00 PM EST Office Visit Cardiology, [facility] 132 [place] [address] Clementine Wang, PAJonna [address] [facility] [place] [address] 02/26/2024 2:00 PM EST Office Visit Family Practice, [place] [address] [place] [address] Kennedy Brooks MD [address] [place] [address] 04/25/2024 2:00 PM EST Nurse Only Ancillary Department, [place] [address] [place] [address] [place], Nurse Annual [facility] [address] [place] [address] Scheduled Procedures Name Priority Associated Diagnoses Date/Ti [...] Visit 04/21/2024 04/21/2023 CKD HGB USE SMARTSET 52630 06/26/202406/26, 06/27/2023, 08/31/2022, Additional history exists CKD PHOS USE SMARTSET 29222 06/26/202406/05, 09/09/2020, 03/24/2020, Additional history exists HbA1c [...] this encounter Medical Devices Implanted Type Area Golf Professional Device Identifier Shelf Expiration Date Model / Serial / Lot Lens Intraoc 20.0 - [id number] - [id number] Implanted:Qty: 1 on 01/02/2020 by Guero Bell MD at OR [facility] Left: Eye BAUSCH & LOMB 07/03/2024 [id number] / [id number] / [id number] Lens Intraoc 20.0 - [id number] - [id number] Implanted:Qty: 1 on 01/16/2020 by Guero Bell MD at OR [facility] Right: Eye BAUSCH & LOMB 08/03/2024 [id number] / [id number] / [id number] documented as of this encounter Visit Diagnoses Diagnosis Obstructive sleep apnea- Primary Obstructive sleep apnea (adult) (pediatric) documented in this encounter Advance Directives * [...] Discussed due to patient's condition Care Teams Career Technical Counselor Relationship Specialty Start Date End Date Kennedy Brooks MD [address] [place] [address] PCP - General Family Medicine 04/23/18 documented as of this encounter
--- OUTSIDE RECORDS SUMMARY | 2024-01-17 10:36 | External Medical Summary | Summary of Care ---
Author Name Unknown Organization [facility] Address [address] [place] [place] [address] Phone [phone] Care Team Providers Care Window Shade Cutter Name Role Phone Kennedy Brooks MD Primary Care Provider [phone] Reason for Visit * Reason Comments Obesity Encounter Details Date Type Department Care Team (Late st Contact Info) Description 10/17/2023 9:40 AM EDT Telemedicine Nutrition and Weight Management [address] [facility] [place] [address] Rosendo Oscar PA-C [address] [place] [address] Obesity, Class III, BMI 40-49.9 (morbid obesity) ([facility])* Allergies Active Allergy Reactions Criticality Noted Date Comments Paroxetine Hydrochloride Hives 06/07/2007 documented as of this encounter (statuses as of 10/17/2023) Medications Medication Sig Dispensed Refills Start Date End Date Status VITAMIN D 1000 UNIT PO CAPS Take 1 Capsule by mouth in the morning and 1 Capsule before bedtime. 30 Cap 11 2 Active aspirin enteric coated 81 MG TBECIndications:Pre- [...] 9 Active triamcinolone acetonide (ARISTOCORT) 0.1 % creamIndications:Chi [...] 1 Active Fluticasone Propionate 50 MCG/ACT Nasal SuspensionIndication [...] the morning. 60 Each 5 3 Active Spironolactone 25 MG Oral Tablet (Aldactone)Indicatio ns:Hypertensive heart and kidney disease with chronic diastolic congestive heart failure and stage 3b chronic kidney disease (HCC),Chronic diastolic heart failure (HCC) TAKE ONE TABLET BY MOUTH EVERY MORNING 90 Tablet 3 3 Active Losartan Potassium 25 MG Oral Tablet (Cozaar)Indications: HTN, goal below 140/90 TAKE ONE TABLET BY MOUTH EVERY DAY 90 Tablet 2 4 Active QUEtiapine Fumarate 200 MG Oral Tablet (SEROquel) Take 1 Tablet by mouth at bedtime. 90 Tablet 3 4 Active Nystatin 370706 UNIT/GM External Powder (Nystop) Apply topically to [...] 4 Active Gabapentin 400 MG Oral Capsule (Neurontin)Indicatio [...] Auto-injector (Semaglutide-Weight Management)Indicatio ns:PAD (peripheral artery disease) ([facility]) Inject 0.25 mg under the [...] week for 28 days. 2 mL 4 11/14/19 Active Saline Nasal [place] 0.65 % Nasal Solution Administer 1 [place] into nostril as needed (nasal dryness, epistaxis). 10/17/19 Discontinu ed(Medicat ion List Clean Up) DIURETIC TITRATION PLAN If no improvement on day 3, contact [facility] 1 Each 3 10/17/19 Discontinu ed(Medicat ion List Clean Up) Levocetirizine Dihydrochloride 5 MG Oral TabletIndications:Ch ronic rhinitis TAKE 1 TABLET BY MOUTH EVERY DAY IN THE EVENING 90 Tablet 3 4 10/17/19 Discontinu ed(Medicat ion List Clean Up) documented as of this encounter (statuses as of 10/17/2023) Active Problems Problem Noted Date Diagnosed Date [...] seroquel Follows with [facility], Rehana MAHTIS Seroquel recently increased to 200mg Fibromyalgia 10/29/2018 [...] as of this encounter (statuses as of 10/17/2023) Resolved Problems Problem Noted Date Diagnosed Date [...] as of this encounter (statuses as of 10/17/2023) Immunizations Name Administration Dates Next Due COVID-19 mRNA, LNP-s, No Pre serve, 2-Dose Series ([employer]) 01/08/2022,05/06/2021 COVID-19, MRNA-LNP, 23-24, P F, 52 [...] as of this encounter Progress Notes * Rosendo Oscar PA-C - 10/17/2023 9:28 AM EDT Comprehensive Weight Management Clinic Note Patient location: HOME. I was in a hospital or clinic location. After connecting through [employer],patient was verified with two unique identifiers. 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 Methods to assure confidentiality were taken. Patient acknowledged consent and understanding of pr ivacy and security of the Telemedicine visit. The patient agreed to participate. Paige Hendricks presents in follow up to the comprehensive weight management clinic. The patient is a 68 year old female with PMH significant for Patient Active Problem List Diagnosis ADVANCE DIRECTIVE [...] (HCC) Atherosclerosis of coronary artery Food insecurity whom we have been following since 04/26/23. Her weight at that time was 301 lbs. Current self-reported weight is 278 lbs. Wt Readings from Last 6 Encounters: 10/11/23 126.6 kg (279 lb) 10/09/23 126.9 kg (279 lb 12.8 oz) 08/25/23 129 kg (284 lb 6.4 oz) 08/21/23 129.1 kg (284 lb 11.2 oz) 08/08/23 130 kg (286 lb 8 oz) 06/28/23 134.3 kg (296 lb) Patient is receiving ongoing education regarding dietary and physical modifications for weight loss. Patient is interested in the following treatment options for obesity: medical management, possiblemedication use, and surgical options including Phuc-en-Y gastric bypass or laparoscopic sleeve gastrectomy. The patient was last seen in this clinic 10/09/23. Since that time the patient's weight has decreased 1 pounds. The patient's total weight change is -23 pounds. Current Medications: Current Outpatient Medications Medication Sig Dispense Refill Wegovy 0.5 MG/0.5ML Subcutaneous Solution Auto-injector (Semaglutide-Weight Management) Inject 0.5 mg under the skin once a week for 28 days. 2 mL 0 VITAMIN D 1000 UNIT PO CAPS Take [...] mouth at bedtime. 90 Tablet 3 Nystatin 863411 UNIT/GM External Powder (Nystop) Apply topically to [...] THING IN THE MORNING 90 Tablet 3 No current facility-administered medications for this visit. Water intake: yes Current diet: Breakfast-- cereal with decaf tea Lunch-- skipped Snack-- protein shake Dinner-- salad Drinks-- water Type of exercise: Cleaning house, ADL PT for back Weight loss Pharmacotherapy: Wegovy 0.25 mg weekly There were no vitals taken for this visit. PHYSICAL EXAMINATION: Awake, alert, NAD Assessment and Plan: HTN, CAD, Chronic CHF, CKD, PAD - on Losartan, Spironolactone, Demadex, ASA 81 mg, saw cardiology 08/08/23, abnormal EKG, plan for dobutamine stress test, scheduled 10/27/23 Asthma - on Breo Ellipta, Xopenex, Flonase GERD - on Prilosec, EGD done Chronic constipation - on Miralax, probiotic Goiter, Hypothyroidism - on Levoxyl Vit D deficiency - on supplementation Fibromyalgia, Back pain - on Diclofenac gel, Zanaflex, Neurontin Bipolar disorder, Schizophrenia, Depression - on Seroquel, Wellbutrin, Effexor AMIRA - on CPAP Dyslipidemia - on Lipitor Prediabetes - diet and weight loss recommended Morbid obesity - Currently on Wegovy 0.25 mg, no side effects reported. Patient asking for increase. Will increase to Wegovy 0.5 mg weekly. Patient will require informed consent for GLP1 therapy. Abnormal weight gain /Morbid obesity : - Would like to proceed with medical management, possible medication use, and surgical options including Phuc-en-Y gastric bypass - Patient self-reported that she had attended surgery class previously, was not scheduled today. Things to Complete: - Green light from RD, currently yellow, has f/u on 11/23/23 - Cardiology clearance, needs stress test, scheduled 10/27/23 The Possibility of bariatric surgery: The patient attended the third of our group sessions today regarding bariatric surgery. Information regarding medical complications of obesity and medical outcomes following surgery was included. A description of the different types of bariatric surgeries, introduction to the surgeons, risks and complications of bariatric surgery as well as surgical outcomes was provided. Patient respo nsibilities were reviewed. A question and answer session followed. The bariatric checklist was reviewed with patient and updated in addition to review of labs, imaging, and potential referrals. The patient agreed to try the plan as discussed and return in one month. They were encouraged to call or send a patient portal message in the meantime with any questions or concerns prior to their next clinic visit. I spent a total of 20-29 minutes (exact time 20 mins) on the date of service in preparation, delivery, and documentation of the care provided to Paige Hendricks excluding any time spent in the performance of separately billed services. This included but was no limited to providing counseling about the benefits of weight loss, about their nutritional status, detailed explanations about calorie count, types of nutrients to choose, and composition of the meals. Motivational interview provided in order to prepare the patient to achieve future goals. Rosendo Oscar PA-C documented in this encounter Plan of Treatment Upcoming Encounters Date Type Department Care Team (Late st Contact Info) Description 10/27/2023 1:30 PM EDT Imaging Cardiac Studies, [facility] [place] [address] 11/22/2023 10:00 AM EDT Office Visit Sleep Disorders Ctr [facility] 132 [facility] [place] [address] Iwona Yanez CRNP [address] [place] [address] 11/23/2023 2:00 PM EDT Telemedicine Nutrition and Weight Management, [place] [address] [place] [address] Brianna Diehl, RDN [address] [place] [address] 12/01/2023 11:40 AM EDT Office Visit Nephrology, [facility] [address] [facility] [address] [place] [address] Joaquin Shelley MD 200 [facility] [place] [address] 01/02/2024 11:00 AM EDT Office Visit Nutrition & Weight Management, [facility] 132 [facility] [place] [address] Sallie Marrero PA-C [address] [place] [address] 02/07/2024 2:00 PM EST Office Visit Cardiology, [facility] 132 [facility] [place] [address] Clementine Wang PA-C [address] [place] [address] 02/26/2024 2:00 PM EST Office Visit Family Practice, [place] [address] [facility] [phone] Kennedy Brooks MD [address] [place] [facility] [place] [address] 04/25/2024 2:00 PM EST Nurse Only Ancillary Department, [place] [address] [facility] [address] [place], Nurse Annual Wellness [address] [facility] [address] Scheduled Procedures Name Priority Associated Diagnoses Date/Ti [...] Visit 04/21/2024 04/21/2023 CKD HGB USE SMARTSET 59299 06/26/202406/26, 06/27/2023, 08/31/2022, Additional history exists CKD PHOS USE SMARTSET 77956 06/26/202406/05, 09/09/2020, 03/24/2020, Additional history exists HbA1c [...] this encounter Medical Devices Implanted Type Area Rotary Machine Operator Device Identifier Shelf Expiration Date Model / Serial / Lot Lens Intraoc 20.0 - [id number] - [id number] Implanted:Qty: 1 on 01/02/2020 by Guero Bell MD at OR [facility] Left: Eye BAUSCH & LOMB 07/03/2024 [id number] / [id number] / [id number] Lens Intraoc 20.0 - [id number] - [id number] Implanted:Qty: 1 on 01/16/2020 by Guero Bell MD at OR [facility] Right: Eye BAUSCH & LOMB 08/03/2024 [id number] / [id number] / [id number] documented as of this encounter Visit Diagnoses Diagnosis Obesity, Class III, BMI 40-49.9 (morbid obesity) (HCC)- Primary Morbid obesity documented in this [...] Discussed due to patient's condition Care Teams Window Shade Cutter Relationship Specialty Start Date End Date Kennedy Brooks MD [address] [facility] [place] [address] PCP - General Family Medicine 04/23/18 documented as of this encounter
--- OUTSIDE RECORDS SUMMARY | 2024-01-17 10:36 | External Medical Summary | Summary of Care ---
Author Name Unknown Organization [facility] Address [address] [facility] [place] [address] Phone [phone] Care Team Providers Care Major Case Detective Name Role Phone Kennedy Brooks MD Primary Care Provider Reason for Visit * Auth/Cert Specialty Diagnoses / Procedures Referred By Ana t Referred To Contact Diagnoses Morbid obesity due to excess calories (HCC) Morbid obesity due to excess calories (HCC) [E66.01] Procedures EGD, FLEXIBLE, DIAGNOSTIC ESOPHAGOGASTRODUODENOSCOPY (EGD), FLEXIBLE, TRANSORAL, DIAGNOSTIC Jan Haynes DO [address] [place] [address] Or [facility] [address] [place] [address] Referral ID Status Reason Start Date Expiration Date Visits Re quested Visits Authorized [id number] Encounter Details Date Type Department Care Team (Latest Contact Info) Description 10/11/2023 11:39 AM EDT - 10/11/2023 1:35 PM EDT Hospital Encounter OR [facility], Operating Room, [facility] - 4th Floor [address] [place] [address] Jan Haynes DO [address] [place] [address] Upper GI Endoscopy Discharge Disposition: Home - Self Care Allergies Active Allergy Reactions Criticality Noted Date Comments Paroxetine Hydrochloride Hives 06/07/2007 documented as of this encounter (statuses as of 10/12/2023) Medications Medication Sig Dispensed Refills Start Date [...] a day. To affected area. 80 g 04/29/2019 Active Additional Information Patient taking differently:TopicalPRN, [...] CPAP every night at bedtime . Active Saline Nasal Claunch 0.65 % Nasal Solution Administer 1 Claunch into nostril as needed (nasal dryness, epistaxis). Active Polyethylene Glycol 3350 17 GM Oral Packet Take 1 Packet by mouth in the morning. Active DIURETIC TITRATION PLAN If no improvement on day 3, contact [facility] 1 Each 06/14/2022 Active Additional Information Patient not taking.Reported on 10/11/2023 Xiidra 5 % Ophthalmic Solution (Lifitegrast) Instill [...] 11/23/2022 Active Spironolactone 25 MG Oral Tablet (Aldactone)Indication [...] bedtime. 90 Tablet 3 05/04/2023 Active Nystatin 197590 UNIT/GM External Powder (Nystop) Apply topically to affected area 3 times a day. 60 g 2 06/01/2023 Active Additional Information Patient taking differently:TopicalPRN, Reported on 10/09/2023 Torsemide 20 MG Oral Tablet (Demadex)Indications: Chronic diastolic heart failure (HCC) Take 1 Tablet [...] Wegovy 0.25 MG/0.5ML Subcutaneous Solution Auto-injector (Semaglutide-Weight Management)Indication s:PAD (peripheral artery disease) (HCC) Inject 0.25 mg under the skin once a week. 6 mL 3 08/25/2023 Active Atorvastatin Calcium 40 MG Oral Tablet (Lipitor)Indications: Other hyperlipidemia,Dyslip idemia, goal LDL below 70 Take 1 Tablet by mouth every evening. 90 Tablet 3 08/25/2023 Active Levocetirizine Dihydrochloride 5 MG Oral TabletIndications:Chr onic rhinitis TAKE 1 TABLET BY MOUTH EVERY DAY IN THE EVENING 90 Tablet 3 08/29/2023 Active Additional Information Patient not taking.Reported on 10/11/2023 Omeprazole 20 MG Oral Capsule Delayed Release [...] as of this encounter (statuses as of 10/12/2023) Active Problems Problem Noted Date Diagnosed Date [...] as of this encounter (statuses as of 10/12/2023) Resolved Problems Problem Noted Date Diagnosed Date [...] as of this encounter (statuses as of 10/12/2023) Immunizations Name Administration Dates Next Due COVID-19 mRNA, LNP-s, No Pre serve, 2-Dose Series ([employer]) 01/08/2022,05/06/2021 COVID-19, MRNA-LNP, 23-24, P F, 52 [...] Sign Reading Time Taken Comments Blood Pressure 134/99 10/11/2023 1:30 PM EDT Pulse 83 10/11/2023 1:30 PM EDT Temperature 36.2 C (97.2 F) 10/11/2023 1:30 PM ED T Respiratory Rate 18 10/11/2023 1:30 PM EDT Oxygen Saturation 94% 10/11/2023 1:30 PM EDT Inhaled Oxygen Concentration - - Weight 126.6 kg (279 lb) 10/11/2023 11:49 AM EDT Height 160 cm (5' 2.99") 10/11/2023 11:49 AM EDT Body Mass Index 49.44 10/11/2023 11:49 AM EDT documented in this encounter H&P Notes * Jan Haynes, - 10/11/2023 12:21 PM EDT Endoscopy Pre-Procedure Assessment Name: Paige Hendricks Date: 10/11/2023 Time: 12:21 PM Procedure(s): Upper GI Endoscopy; with Indication(s) of pre-op for gastric bypass Endoscopy Pre-Procedure Assessment: Prior to the procedure, the patient is identified. The patient's history, medications and allergieshave been reviewed. The patient is competent. The risks and benefits of the proposed procedure and the planned sedation have been discussed with the patient. All questions have been answered and informed consent for the procedure has been obtained. Prior to Admission medications Medication Sig Last Dose Discont. Levothyroxine Sodium 100 MCG Oral Tablet (Levoxyl) TAKE 1 TABLET BY MOUTH EVERY DAY FIRST THING IN THE MORNING 10/10/2023 Omeprazole 20 MG Oral Capsule Delayed Release (PriLOSEC) TAKE 1 CAPSULE BY MOUTH IN THE MORNING AND1 CAPSULE BEFORE BEDTIME. TAKE 30 MINUTES BEFORE A MEAL.. 10/10/2023 Atorvastatin Calcium 40 MG Oral Tablet (Lipitor) Take 1 Tablet by mouth every evening. 10/10/2023 Wegovy 0.25 MG/0.5ML Subcutaneous Solution Auto-injector (Semaglutide-Weight Management) Inject 0.25 mg under the skin once a week. Past Week Citracal Petites/Vitamin D 200-6.25 MG-MCG Oral Tablet (Calcium Citrate-Vitamin D) Take 1 Tablet bymouth in the morning. 10/10/2023 Multi Vitamin Daily Oral Tablet Take by mouth daily. 10/10/2023 oxygen IN GAS 2 LPM bled through auto CPAP 7-12 cm H2O 10/11/2023 buPROPion HCl ER (SR) 100 MG Oral Tablet Extended Release 12 Hour (Wellbutrin SR) Take 1 Tablet by mouth in the morning. 10/10/2023 Gabapentin 400 MG Oral Capsule (Neurontin) Take 1 Capsule by mouth in the morning and 1 Capsule before bedtime. 10/10/2023 Torsemide 20 MG Oral Tablet (Demadex) Take 1 Tablet by mouth daily AND 0.5 Tablets daily at noon. 10/10/2023 Nystatin 269366 UNIT/GM External Powder (Nystop) Apply topically to affected area 3 times a day. Patient taking differently: Apply topically to affected area as needed. 10/11/2023 QUEtiapine Fumarate 200 MG Oral Tablet (SEROquel) Take 1 Tablet by mouth at bedtime. 10/10/2023 Losartan Potassium 25 MG Oral Tablet (Cozaar) TAKE ONE TABLET BY MOUTH EVERY DAY 10/10/2023 Spironolactone 25 MG Oral Tablet (Aldactone) TAKE ONE TABLET BY MOUTH EVERY MORNING 10/10/2023 Fluticasone Furoate-Vilanterol 100-25 MCG/ACT Inhalation Aerosol Powder Breath Activated (BREO ellipta) Inhale 1 Puff by mouth in the morning. Past Week Probiotic Daily Oral Capsule Take 1 Capsule by mouth in the morning. 10/10/2023 Xiidra 5 % Ophthalmic Solution (Lifitegrast) Instill 1 Drop into eye in the morning and 1 Drop before bedtime. 1 drop each eye in am and at bedtime. 10/10/2023 Polyethylene Glycol 3350 17 GM Oral Packet Take 1 Packet by mouth in the morning. 10/10/2023 CPAP every night at bedtime . 10/11/2023 Fluticasone Propionate 50 MCG/ACT Nasal Suspension Administer into each nostril 2 Sprays in the morning. 10/10/2023 Levalbuterol Tartrate 45 MCG/ACT Inhalation Aerosol (Xopenex HFA) Inhale 1 Puff by mouth every 4 hours as needed for Wheezing. Past Week triamcinolone acetonide (ARISTOCORT) 0.1 % cream Apply topically to affected area 2 times a day. Toaffected area. Patient taking differently: Apply topically to affected area as needed. To affected area. 10/11/2023 venlafaxine XR (EFFEXOR XR) 150 MG CP24 Take 1 Capsule by mouth in the morning. Take with 37.5 mg take with food. 10/10/2023 Diclofenac Sodium 1 % gel Place 2 g topically on the skin 4 times a day as needed (arthritis). 10/10/2023 aspirin enteric coated 81 MG TBEC Take 1 Tablet by mouth in the morning. 10/10/2023 VITAMIN D 1000 UNIT PO CAPS Take 1 Capsule by mouth in the morning and 1 Capsule before bedtime. 10/10/2023 Levocetirizine Dihydrochloride 5 MG Oral Tablet TAKE 1 TABLET BY MOUTH EVERY DAY IN THE EVENING Patient not taking: Reported on 10/11/2023 Not Taking tiZANidine HCl 4 MG Oral Tablet (Zanaflex) Take 1 Tablet by mouth every 12 hours as needed for Muscle spasms. Over 30 Days DIURETIC TITRATION PLAN If no improvement on day 3, contact [facility] Patient not taking: Reported on 10/11/2023 Not Taking Saline Nasal Claunch 0.65 % Nasal Solution Administer 1 Claunch into nostril as needed (nasal dryness, epistaxis). Patient not taking: Reported on 10/11/2023 Not Taking Review of patient's allergies indicates: Allergen Reactions Paxil [Paroxetine Hydrochloride] Hives BP 122/94 | Pulse 89 | Temp 36.1 C (97 F) (Temporal Artery) | Resp 18 | Ht 1.6 m (5' 2.99") | Wt 126.6 kg (279 lb) | SpO2 92% | BMI 49.44 kg/m | BSA 2.37 m Physical Exam: Mental Status Examination: alert and oriented. Airway Examination: normal oropharyngeal airway and neck mobility. Respiratory Examination: clear to auscultation. CV Examination: regular rate and rhythm. ASA Grade: III - A patient with severe systemic disease. Abdomen: soft This patient has undergone a preprocedural evaluation. A determination has been made to proceed with the planned procedure under [facility] procedural guidelines and the [facility] Non-Emergent, Elective Medical Services and Treatment Recommendations (published on 06-11-19). The community and hospital prevalence of COVID-19 has been discussed as well as this patient's specific risks associated with SARS-CoV-19 infection. Based upon the clinical acuity and patient-specific care considerations, this procedure is deemed a Tier II - Intermediate acuity treatment or service with either progression or the threat of progressive disease related to the delay in treatment. Not providing the service has the potential for increasing morbidity or mortality. After reviewing the risks and benefits, the patient is deemed in satisfactory condition to undergo the procedure. The anesthesia plan is to use general anesthesia. We have discussed the risks and benefits of upper endoscopy to include bleeding, infection, perforation, discomfort, aspiration and need for follow-up studies. Jan Haynes DO 10/11/2023 documented in this encounter Procedure Notes * Kennedy Brooks MD - 10/11/2023 12:56 PM EDTAssociated Order(s): UPPER GI ENDOSCOPY [facility] Patient Name: Paige Hendricks Procedure Date: 10/11/2023 12:56 PM Date of : 1955 Admit Type: Outpatient Note Status: Finalized Date of : 1955 Admit Type: Outpatient Age: 68 Room: OR 5 Gender: Female Note Status: Finalized Procedure: Upper GI endoscopy Indications: Preoperative assessment for bariatric surgery to treat morbid obesity Providers: Jan Haynes DO (Doctor) Referring MD: Kennedy Brooks MD, Emi Diego Medicines: General Anesthesia Complications: No immediate complications. Estimated blood loss: Minimal. Procedure: Pre-Anesthesia Assessment: - Prior to the procedure, a History and Physical was performed, and patient medications, allergies and sensitivities were reviewed. The patient's tolerance of previous anesthesia was reviewed. - The risks and benefits of the procedure and the sedation options and risks were discussed with the patient. All questions were answered and informed consent was obtained. - Pre-procedure physical examination revealed no contraindications to sedation. - ASA Grade Assessment: III - A patient with severe systemic disease. - After reviewing the risks and benefits, the patient was deemed in satisfactory condition to undergo the procedure. - The anesthesia plan was to use general anesthesia. - Immediately prior to administration of medications, the patient was re- assessed for adequacy to receive sedatives. - The heart rate, respiratory rate, oxygen saturations, blood pressure, adequacy of pulmonary ventilation, and response to care were monitored throughout the procedure. - The physical status of the patient was re-assessed after the procedure. After obtaining informed consent, the endoscope was passed under direct vision. All instruments were visually inspected immediately before and after removal from the patient to ensure they are fully intact. Throughout the procedure, the patient's blood pressure, pulse, and oxygen saturations were monitored continuously. The [id number]-Q190 Endoscope ([id number]) was introduced through the mouth, and advanced to the third part of duodenum. The upper GI endoscopy was accomplished without difficulty. The patient tolerated the procedure well. Findings & Specimens: The examined esophagus was [...] Normal stomach. Biopsied. - Normal examined duodenum. Recommendation: - The patient will be observed post-procedure, until all discharge criteria are met. - Advance diet as tolerated today. - Await pathology results. Jan Haynes DO 10/11/2023 1:15:16 PM This report has been signed electronically. Estimated Blood Loss: Estimated blood loss was minimal. documented in this encounter Nursing Notes * Aracelis Isaac RN - 10/11/2023 1:34 PM EDT [facility]-[address] [address] SameDay Surgery Discharge Note Name: Paige Hendricks Date: 10/11/2023 Time: 1:34 PM Discharge Disposition: Home Responsible adult as escort home: grandson Transport Mode: Ambulatory Accompanied by: Gentry Isaac RN To: Car Belongings with patient: Yes Patient meets criteria to be transferred or discharged. * Krissy Haley RN - 10/11/2023 12:59 PM EDT EGD completed ion [facility] OR. Sedated by [employer]. See anesthesia record for VS and medications given. Pt tolerated procedure well with minimal gagging. Abd soft. Airway patent. Pt to recovery on L side withHOB elevated. Report to recovery room nurse. Specimen and location verified with physician. Bedside cleaning done by Kiesha Tapia RN. documented in this encounter Plan of Treatment Upcoming Encounters Date Type Department Care Team (Late st Contact Info) Description 10/17/2023 9:40 AM EDT Telemedicine Nutrition and Weight Management [facility] Gris Bejarano [address] [facility] [place] [address] Rosendo Oscar PA-C [address] [place] [address] 10/27/2023 1:30 PM EDT Imaging Cardiac Studies, Health system [address] [facility] [place] [address] 11/22/2023 10:00 AM EDT Office Visit Sleep Disorders Ctr [facility] [address] [facility] [place] [phone] Iwona Yanez CRNP [address] [facility] [place] [address] 11/23/2023 2:00 PM EDT Telemedicine Nutrition and Weight Management, [place] [address] [place] [address] Brianna Diehl RDN [address] [place] [address] 12/01/2023 11:40 AM EDT Office Visit Nephrology, [facility] [address] [facility] [place] [address] Joaquin Shelley MD [address] [facility] [place] [address] 01/02/2024 11:00 AM EDT Office Visit Nutrition & Weight Management, Health system [address] [facility] [place] [address] Sallie Marrero PA-C [address] [place] [address] 02/07/2024 2:00 PM EST Office Visit Cardiology, Health system [address] [place] [address] Clementine Wang PA-C [address] [place] [address] 02/26/2024 2:00 PM EST Office Visit Family [facility], [place] [address] [place] [phone] Kennedy Brooks MD [address] [place] [address] 04/25/2024 2:00 PM EST Nurse Only Ancillary Department, [place] [address] [place] [address] [place], Nurse [facility] [address] [place] [address] Pending Results Name Type Priority Associated Diagnoses Date /Time SURGICAL PATHOLOGY Pathology Routine 2023 12:59 PM EDT Scheduled Orders Name Type Priority Associated Diagnoses Orde r Schedule SURGICAL PATHOLOGY Pathology Routine One Ti me for 1 Occurrences starting 10/11/2023 until 10/11/2023, 1 completed Scheduled Procedures Name Priority Associated Diagnoses Date/Ti [...] Visit 04/21/2024 04/21/2023 CKD HGB USE SMARTSET 01657 06/26/202406/26, 06/27/2023, 08/31/2022, Additional history exists CKD PHOS USE SMARTSET 34897 06/26/202406/05, 09/09/2020, 03/24/2020, Additional history exists HbA1c [...] this encounter Medical Devices Implanted Type Area Sustainability Communicator Device Identifier Shelf Expiration Date Model / Serial / Lot Lens Intraoc 20.0 - [id number] - [id number] Implanted:Qty: 1 on 01/02/2020 by Guero Bell MD at OR [facility] Left: Eye [employer] 07/03/2024 [id number] / [id number] / [id number] Lens Intraoc 20.0 - [id number] - [id number] Implanted:Qty: 1 on 01/16/2020 by Guero Bell MD at OR [facility] Right: Eye [employer] 08/03/2024 [id number] / [id number] / [id number] documented as of this encounter Procedures Procedure Name Priority Date/Time Associated Diagnosis Comments UPPER GI ENDOSCOPY 10/11/2023 12 :56 PM EDT documented in this encounter Results * UPPER GI ENDOSCOPY (10/11/2023 12:56 PM EDT) 10/11/2023 12:5 6 PM EDT Narrative Procedure Note Kennedy Brooks MD - 10/11/2023 12:56 PM EDT [facility] Patient Name: Paige Hendricks Procedure Date: 10/11/2023 12:56 PMMRN: [id number] Date of : 1955 Admit Type: Outpatient Note Status:Finalized Date of : 1955 Admit Type: Outpatient Age: 68 Room: OR 5 Gender: Female Note Status: Finalized Procedure: Upper GI endoscopy Indications: Preoperative assessment for bariatric surgery totreat morbid obesity Providers: Jan Haynes DO (Doctor) Referring MD: Kennedy Brooks MD, Emi Diego Medicines: General Anesthesia Complications: No immediate complications. Estimated blood loss:Minimal. Procedure: Pre-Anesthesia Assessment: - Prior to the procedure, a History and Physicalwas performed, and patient medications, allergies and sensitivities werereviewed. The patient's tolerance of previous anesthesia was reviewed. - The risks and benefits of the procedure and thesedation options and risks were discussed with the patient. All questions wereanswered and informed consent was obtained. - Pre-procedure physical examination revealed nocontraindications to sedation. - ASA Grade Assessment: III - A patient with severesystemic disease. - After reviewing the risks and benefits, thepatient was deemed in satisfactory condition to undergo the procedure. - The anesthesia plan was to use generalanesthesia. - Immediately prior to administration ofmedications, the patient was re-assessed for adequacy to receive sedatives. - The heart rate, respiratory rate, oxygensaturations, blood pressure, adequacy of pulmonary ventilation, and response to care weremonitored throughout the procedure. - The physical status of the patient wasre-assessed after the procedure. After obtaining informed consent, the endoscope waspassed under direct vision. All instruments were visually inspected immediatelybefore and after removal from the patient to ensure they are fully intact. Throughoutthe procedure, the patient's blood pressure, pulse, and oxygen saturations weremonitored continuously. The GIF-Q190 Endoscope ([id number]) was introduced throughthe mouth, and advanced to the third part of duodenum. The upper GI endoscopy wasaccomplished without difficulty. The patient tolerated the procedure well. Findings & Specimens: The examined esophagus was normal. The Z-line was regular and was found 36 cm from the incisors. The entire examined stomach was normal. Biopsies were taken with acold forceps for histology. The pathology specimen was placed into Bottle A. Estimated blood loss wasminimal. The examined duodenum was normal. Impression: - Normal esophagus. - Z-line regular, 36 cm from the incisors. - Normal stomach. Biopsied. - Normal examined duodenum. Recommendation: - The patient will be observed post-procedure,until all discharge criteria are met. - Advance diet as tolerated today. - Await pathology results. Jan Rg Haynes, DO 10/11/2023 1:15:16 PM This report has been signed electronically. Estimated Blood Loss: Estimated blood loss was minimal. Kennedy Brooks MD GASTRO UPPER documented in this encounter Visit Diagnoses Diagnosis Morbid obesity with BMI of 45.0-49.9, adult (HCC)- Primary Morbid obesity documented in this encounter Administered Medications Inactive Administered Medications - up to 3 most recent administrations Medication Order MAR Action Action Date Dose Rate Site isolyte-S pH 7.4 infusion Intravenous, at 10 mL/hr, Plasma-LYTE 148, isolyte-S, and isolyte-S pH 7.4 are considered equivalent - including for MAR barcode scanning., CONTINUOUS, Starting on Mon10/11/23 at 1215, Until Mon10/11/23 at 1736 Restarted 10/11/2023 12:55 PM EDT Continue from Pre-Op 10/11/2023 12:50 PM EDT 10 mL/hr New Bag 10/11/2023 12:11 PM EDT 10 mL/hr isolyte-S pH 7.4 infusion Intravenous, at 100 mL/hr, Plasma-LYTE 148, isolyte-S, and isolyte-S pH 7.4 are considered equivalent - including for MAR barcode scanning., CONTINUOUS, Starting on Mon10/11/23 at 1300, Until Mon10/11/23 at 1736, Pre-Op documented in this encounter Active and Recently Administered Medications Times are shown in EDT. Continuous Medication Order 10/09/2023 10/10/2023 10/11/2023 isolyte-S pH 7.4 infusion Intravenous, at 10 mL/hr, Plasma-LYTE 148, isolyte-S, and isolyte-S pH 7.4 are considered equivalent - including for MAR barcode scanning., CONTINUOUS, Starting on Mon10/11/23 at 1215, Until Mon10/11/23 at 1736 1211 (New Bag - Prov ider: Eloisa Correa RN)1250 (Continue from Pre-Op - Provider: Ben Rodriguez CRNA)1254 (Paused - Provider: Ben Rodriguez CRNA - Comment: Switch to gravity)1255 (Restarted - Provider: Ben Rodriguez CRNA)1307 (Stopped - Provider: Ben Rodriguez CRNA) isolyte-S pH 7.4 infusion Intravenous, at 100 mL/hr, Plasma-LYTE 148, isolyte-S, and isolyte-S pH 7.4 are considered equivalent - including for MAR barcode scanning., CONTINUOUS, Starting on Mon10/11/23 at 1300, Until Mon10/11/23 at 1736, Pre-Op 1255 (Entry Error - Provider: Ben Rodriguez CRNA) documented in this encounter Advance Directives * [...] Discussed due to patient's condition Care Teams Major Case Detective Relationship Specialty Start Date End Date Kennedy Brooks MD [address] [place] [address] PCP - General Family Medicine 04/23/18 documented as of this encounter
--- OUTSIDE RECORDS SUMMARY | 2024-01-17 10:36 | External Medical Summary | Summary of Care ---
Author Name Unknown Organization [facility] Address [address] [place] [place] [place] [address] Phone [phone] Care Team Providers Care Senior Policy Associate Name Role Phone Kennedy Brooks MD Primary Care Provider [phone] Reason for Visit * Reason Comments Obesity Encounter Details Date Type Department Care Team (Late st Contact Info) Description 10/17/2023 9:40 AM EDT Telemedicine Nutrition and Weight Management [address] [facility] [place] [address] Rosendo Oscar PA-C [address] [place] [address] Obesity, Class III, BMI 40-49.9 (morbid obesity) ([facility])* Allergies Active Allergy Reactions Criticality Noted Date [...] bedtime. 90 Tablet 3 4 Active Nystatin 486221 UNIT/GM External Powder (Nystop) Apply topically to [...] Auto-injector (Semaglutide-Weight Management)Indicatio ns:PAD (peripheral artery disease) ([facility]) Inject 0.25 mg under [...] 2 mL 4 11/14/19 Active Saline Nasal Andrews 0.65 % Nasal Solution Administer 1 Andrews into nostril as needed (nasal dryness, epistaxis). [...] mRNA, LNP-s, No Pre serve, 2-Dose Series ([employer]) 01/08/2022,05/06/2021 COVID-19, MRNA-LNP, 23-24, P F, 52 [...] hospital or clinic location. After connecting through [employer],patient was verified with two unique identifiers. 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 90 Tablet 3 Nystatin 359183 UNIT/GM External Powder (Nystop) Apply topically to [...] 10/27/2023 1:30 PM EDT Imaging Cardiac Studies, [facility] [place] [address] 11/22/2023 10:00 AM EDT Office Visit Sleep Disorders Ctr [facility] 132 [facility] [place] [address] Iwona Yanez CRNP [address] [place] [address] 11/23/2023 2:00 PM EDT Telemedicine Nutrition and Weight Management, [place] [address] [address] [place] [address] Brianna Diehl, RDN [address] [place] [address] 12/01/2023 11:40 AM EDT Office Visit Nephrology, [facility] [address] [facility] [place] [address] Joaquin Shelley MD 200 [facility] [place] [address] 01/02/2024 11:00 AM EDT Office Visit Nutrition & Weight Management, [facility] 132 [facility] [place] [address] Sallie Marrero PA-C [address] [place] [address] 02/07/2024 2:00 PM EST Office Visit Cardiology, [facility] 132 [facility] [place] [address] Clementine Wang PA-C [address] [place] [address] 02/26/2024 2:00 PM EST Office Visit [facility] Practice, [place] [address] [facility] [phone] Kennedy Brooks MD [address] [place] [place] [address] 04/25/2024 2:00 PM EST Nurse Only Ancillary Department, [place] [address] [facility] [address] [place], Nurse Annual Well[facility] [address] [facility] [address] Scheduled Procedures Name Priority Associated Diagnoses Date/Ti [...] Visit 04/21/2024 04/21/2023 CKD HGB USE SMARTSET 71696 06/26/202406/26, 06/27/2023, 08/31/2022, Additional history exists CKD PHOS USE SMARTSET 39528 06/26/202406/05, 09/09/2020, 03/24/2020, Additional history exists HbA1c [...] this encounter Medical Devices Implanted Type Area Automation Qa Tester Device Identifier Shelf Expiration Date Model / Serial / Lot Lens Intraoc 20.0 - [id number] - [id number] Implanted:Qty: 1 on 01/02/2020 by Guero Bell MD at [facility] Left: Eye BAUSCH & LOMB 07/03/2024 [id number] / [id number] / [id number] Lens Intraoc 20.0 - [id number] - [id number] Implanted:Qty: 1 on 01/16/2020 by Guero Bell MD at [facility] Right: Eye BAUSCH & LOMB 08/03/2024 [id number] / [id number] / [id number] documented as of this encounter Visit Diagnoses [...] Discussed due to patient's condition Care Teams Senior Policy Associate Relationship Specialty Start Date End Date Kennedy Brooks MD [address] [facility] [place] [address] PCP - General Family Medicine 04/23/18 documented as of this encounter
--- OUTSIDE RECORDS SUMMARY | 2024-01-17 10:37 | External Medical Summary | Summary of Care ---
Author Name Unknown Organization [facility] Address [address] [place] [address] Phone [phone] Care Team Providers Care Wildlife Refuge Specialist Name Role Phone Kennedy Brooks MD Primary Care Provider [phone] Reason for Visit * Reason Onset Date Comments Appointment 09/19/2023 Encounter Details Date Type Department Care Team (Late st Contact Info) Description 09/19/2023 Telephone Nutrition & Weight Management, [facility] [address] [place] [address] Chanda Bah PA-C [address] [place] [address] Appointment Allergies Active Allergy Reactions Criticality Noted Date Comments Paroxetine Hydrochloride Hives 06/07/2007 documented as of this encounter (statuses as of 09/19/2023) Medications Medication Sig Dispensed Refills Start Date [...] affected area. 80 g 5 04/29/2019 Active Levalbuterol Tartrate 45 MCG/ACT Inhalation Aerosol (Xopenex HFA) Inhale 1 Puff by mouth every 4 hours as needed for Wheezing. 15 g 12 05/11/2020 Active Fluticasone Propionate 50 MCG/ACT Nasal SuspensionIndications :Chronic rhinitis Administer into each nostril 2 Sprays in the morning. 18.2 mL 11 06/04/2021 Active CPAP every night at bedtime . Active Saline Nasal Pinedale 0.65 % Nasal Solution Administer 1 [place]ined[place] into nostril as needed (nasal dryness, epistaxis). Active Polyethylene Glycol 3350 17 GM Oral Packet Take 1 Packet by mouth in the morning. Active DIURETIC TITRATION PLAN If no improvement on day 3, contact [facility] 1 Each 06/14/2022 Active Xiidra 5 % Ophthalmic Solution (Lifitegrast) [...] bedtime. 90 Tablet 3 05/04/2023 Active Nystatin 432515 UNIT/GM External Powder (Nystop) Apply topically to affected area 3 times a day. 60 g 2 06/01/2023 Active Torsemide 20 MG Oral Tablet (Demadex)Indications: [...] Auto-injector (Semaglutide-Weight Management)Indication s:PAD (peripheral artery disease) ([facility]) Inject 0.25 mg under the [...] THE EVENING 90 Tablet 3 08/29/2023 Active Omeprazole 20 MG Oral Capsule Delayed [...] as of this encounter (statuses as of 09/19/2023) Active Problems Problem Noted Date Diagnosed Date [...] as of this encounter (statuses as of 09/19/2023) Resolved Problems Problem Noted Date Diagnosed Date [...] as of this encounter (statuses as of 09/19/2023) Immunizations Name Administration Dates Next Due COVID-19 mRNA, LNP-s, No Pre serve, 2-Dose Series ([employer]) 01/08/2022,05/06/2021 COVID-19, MRNA-LNP, 23-24, P F, 52 [...] No 08/30/2023 Does the household have a [facility] source of income? (Household - for [...] encounter Miscellaneous Notes * Telephone Encounter - Alanna Taveras OSA - 09/19/2023 8:15 AM EDT Called pt to offer her earlier appts for the classes today since there were cancellations. Please transfer pt to dept when returning call. documented in this encounter Plan of Treatment Upcoming Encounters Date Type Department Care Team (Latest Contact Info) Description 1:30 PM EDT Telemedicine Nutrition & Weight Management, [facility] [address] [place] [address] [facility], Surgery Class Provider [place] 132 [place] [address] 4 2:40 PM EDT Telemedicine Nutrition & Weight Management, [facility] [address] [place] [address] Chanda Bah PA-C [address] [place] [address] 4 4:00 PM EDT Home Visit Care Coordination and Integration [address] [place] [address] Eloisa Beard, Community Health Title Manager [address] [place] [address] 4 1:50 PM EDT Nutrition Services Nutrition & Weight Management, [facility] [address] [place] [address] Laura Hinds RDN [address] [place] [address] 4 9:23 AM EDT Hospital Encounter OR [facility], Operating Room, [facility] - 4th Floor [address] [place] [address] Jan Haynes, DO [address] [place] [address] 4 9:23 AM EDT - 4 9:54 AM EDT Surgery OR [facility], Operating Room, [facility] - 4th Floor [address] [place] [address] Jan Haynes, DO [address] [place] [address] ESOPHAGOGASTRODUODENOSCOPY (EGD), FLEXIBLE, TRANSORAL, DIAGNOSTIC 4 1:30 PM EDT Imaging Cardiac Studies, [facility] 132 [facility] [place] [address] 4 10:00 AM EDT Office Visit Sleep Disorders Ctr [facility] 132 [facility] [place] [phone] Iwona Yanez CRNP 132 [facility] [place] [address] 4 11:40 AM EDT Office Visit Nephrology, [facility] [address] [facility] [place] [address] Joaquin Shelley MD [address] [facility] [place] [address] 4 11:00 AM EDT Office Visit Nutrition & Weight Management, [facility] 132 [facility] [place] [address] Sallie Marrero PA-C 132 [facility] [place] [address] 4 2:00 PM EST Office Visit Cardiology, [facility] [address] [facility] [place] [address] Clementine Wang, PA-C 132 [facility] [place] [address] 4 2:00 PM EST Office Visit Family Practice, [place] [address] [place] [facility] [place] [phone] Kennedy Brooks MD [address] [place] [address] 5 2:00 PM EST Nurse Only Ancillary Department, [place] [address] [place] [address] [place], Nurse Annual Wellness [address] [place] [address] Scheduled Procedures Name Priority Associated Diagnoses Date/Ti me ESOPHAGOGASTRODUODENOSCOPY ( EGD), FLEXIBLE, TRANSORAL, DIAGNOSTIC Morbid obesity due to excess calories (HCC) 10/11/2023 9:23 AM EDT COLONOSCOPY FLEXIBLE PROXIMA L DIAGNOSTIC Recall History of colon polyps Health Maintenance Due Date Last Done Comments Cologuard 2002 Fecal Occult Blood Test 2002 Sigmoidoscopy 2002 Colonoscopy 05/10/2023 05/09/2018, 05/09/2018 Colorectal Cancer Screening 05/10/2023 COVID-19 Vaccine ( season) 2023 02/28/2023, 01/08/2022, 05/06/2021 Mammogram 09/02/2023 09/01/2022, 08/05, 06/16/2021, Additional history exists *SPIROMETRY ONCE FOR ASTHMA-ADULT 09/17/2023 Influenza Vaccine (FLU shot) (#1) 2023 02/22/2023 GFR 12/27/2023 06/27/2023, 04/06, 01/25/2023, Additional history exists Albumin/Creatinine Ratio 02/04/2024 023, 05/20/2021, 11/13/2017, Additional history exists CKD HGB USE SMARTSET 38936 06/26/202406/26, 06/27/2023, 08/31/2022, Additional history exists CKD PHOS USE SMARTSET 38417 06/26/202406/05, 09/09/2020, 03/24/2020, Additional history exists HbA1c [...] this encounter Medical Devices Implanted Type Area Coder Operator Device Identifier Shelf Expiration Date Model / Serial / Lot Lens Intraoc 20.0 - [id number] - [id number] Implanted:Qty: 1 on 01/02/2020 by Guero Bell MD at OR [facility] Left: Eye BAUSCH & LOMB 07/03/2024 [id number] / [id number] / [id number] Lens Intraoc 20.0 - [id number] - [id number] Implanted:Qty: 1 on 01/16/2020 by Guero Bell MD at OR [facility] Right: Eye BAUSCH & LOMB 08/03/2024 [id number] / [id number] / [id number] documented as of this encounter Care Teams Wildlife Refuge Specialist Relationship Specialty Start Date End Date Kennedy Brooks MD [address] [place] [address] PCP - General Family Medicine 04/23/18 documented as of this encounter
--- OUTSIDE RECORDS SUMMARY | 2024-01-17 10:37 | External Medical Summary | Summary of Care ---
Author Name Unknown Organization [facility] Address [address] [place] [address] Phone [phone] Care Team Providers Care Magnetic Tester Name Role Phone Kaitlin Brooks MD Primary Care Provider Reason for Visit * Reason Comments eRx-Medication Refill Encounter Details Date Type Department Care Team ([facility] st Contact Info) Description 09/18/[address] [facility] [address] [place] [address] Kaitlin Brooks MD [address] [place] [address] Acquired hypothyroidism Allergies Active Allergy Reactions Criticality Noted Date Comments Paroxetine Hydrochloride Hives 06/07/2007 documented as of this encounter (statuses as of 09/18/2023) Medications Medication Sig Dispensed Refills Start Date [...] affected area. 80 g 5 0 Active Levalbuterol Tartrate 45 MCG/ACT Inhalation Aerosol (Xopenex HFA) Inhale 1 Puff by mouth every 4 hours as needed for Wheezing. 15 g 12 1 Active Fluticasone Propionate 50 MCG/ACT Nasal SuspensionIndicatio ns:Chronic rhinitis Administer into each nostril 2 Sprays in the morning. 18.2 mL 11 2 Active CPAP every night at bedtime . Active Saline Nasal Davy 0.65 % Nasal Solution Administer 1 Davy into nostril as needed (nasal dryness, epistaxis). Active Polyethylene Glycol 3350 17 GM Oral Packet Take 1 Packet by mouth in the morning. Active DIURETIC TITRATION PLAN If no improvement on day 3, contact [facility] 1 Each 3 Active Xiidra 5 % Ophthalmic Solution (Lifitegrast) [...] 3 Active Spironolactone 25 MG Oral Tablet (Aldactone)Indicati [...] bedtime. 90 Tablet 3 4 Active Nystatin 006392 UNIT/GM External Powder (Nystop) Apply topically to affected area 3 times a day. 60 g 2 4 Active Torsemide 20 MG Oral Tablet [...] Auto-injector (Semaglutide-Weight Management)Indicati ons:PAD (peripheral artery disease) ([facility]) Inject 0.25 mg under the skin once a week. 6 mL 3 4 Active Atorvastatin Calcium 40 MG Oral Tablet (Lipitor)Indication s:Other hyperlipidemia,Dysl ipidemia, goal LDL below 70 Take 1 Tablet by mouth every evening. 90 Tablet 3 4 Active Levocetirizine Dihydrochloride 5 MG Oral TabletIndications:C hronic rhinitis TAKE 1 TABLET BY MOUTH EVERY DAY IN THE EVENING 90 Tablet 3 4 Active Omeprazole 20 [...] THE MORNING 90 Tablet 3 4 Active Levothyroxine Sodium 100 MCG Oral Tablet (Levoxyl)Indication s:Acquired hypothyroidism TAKE 1 TABLET BY MOUTH EVERY DAY FIRST THING IN THE MORNING 90 Tablet 4 09/18/19 24 Discontinued documented as of this encounter (statuses as of 09/18/2023) Active Problems Problem Noted Date Diagnosed Date [...] as of this encounter (statuses as of 09/18/2023) Resolved Problems Problem Noted Date Diagnosed Date [...] as of this encounter (statuses as of 09/18/2023) Immunizations Name Administration Dates Next Due COVID-19 mRNA, LNP-s, No Pre serve, 2-Dose Series ([employer]) 01/08/2022,05/06/2021 COVID-19, MRNA-LNP, 23-24, P F, 52 [...] No 08/30/2023 Does the household have a [facility] source of income? (Household - for ages [...] encounter Miscellaneous Notes * Telephone Encounter - Opal Fajardo, [facility] - 09/18/2023 6:19 PM EDTSigned Prescriptions: Disp Refills Levothyroxine Sodium 100 MCG Oral Tablet (*90 Tab*3 Sig: TAKE 1 TABLET BY MOUTH EVERY DAY FIRST THING IN THE MORNINGAuthorizing Provider: KAITLIN BROOKS User: OPAL FAJARDO documented in this encounter Plan of Treatment Upcoming Encounters Date Type Department Care Team (Latest Contact Info) Description 4 1:30 PM EDT Telemedicine Nutrition & Weight Management, [facility] [address] [place] [address] [facility], Surgery Class Provider [facility] [address] [place] [address] 4 2:40 PM EDT Telemedicine Nutrition & Weight Management, [facility] [address] [place] [address] Chanda Bah PA-C [address] [place] [address] 4 4:00 PM EDT Home Visit Care Coordination and Integration [address] [place] [address] Eloisa Beard, Community Health Coordinator Of Genetic Services [address] [place] [address] 4 1:50 PM EDT Nutrition Services Nutrition & Weight Management, [facility] [address] [place] [address] Laura Hinds RDN [address] [place] [address] 4 9:23 AM EDT Hospital Encounter OR [facility], Operating Room, [facility] - 4th Floor [address] [place] [address] Jan Haynes DO [address] [place] [address] 4 9:23 AM EDT - 4 9:54 AM EDT Surgery OR [facility], Operating Room, [facility] - 4th Floor [address] [place] [address] Jan Haynes DO [address] [place] [address] ESOPHAGOGASTRODUODENOSCOPY (EGD), FLEXIBLE, TRANSORAL, DIAGNOSTIC 4 1:30 PM EDT Imaging Cardiac Studies, [facility] [address] [place] [address] 4 10:00 AM EDT Office Visit Sleep Disorders Ctr [facility] [address] [place] [phone] Iwona Yanez CRNP [address] [place] [address] 4 11:40 AM EDT Office Visit Nephrology, [facility] [address] [place] [place] [address] Joaquin Shelley MD 200 [facility] [place] [address] 4 11:00 AM EDT Office Visit Nutrition & Weight Management, [facility] [address] [place] [address] Sallie Marrero PA-C [address] [place] [address] 4 2:00 PM EST Office Visit Cardiology, [facility] [address] [place] [address] Clementine Wang PA-C [address] [place] [address] 4 2:00 PM EST Office Visit Family Practice, [place] [address] [place] [address] Kaitlin Brooks MD [address] [place] [address] 5 2:00 PM EST Nurse Only Ancillary Department, [place] [address] [place], [place] [phone] [place], Nurse Annual Wellness [address] [place] [address] Scheduled Procedures Name Priority Associated Diagnoses Date/Ti [...] Additional history exists CKD HGB USE SMARTSET 95694 06/26/202406/26, 06/27/2023, 08/31/2022, Additional history exists CKD PHOS USE SMARTSET 17707 06/26/202406/05, 09/09/2020, 03/24/2020, Additional history exists HbA1c [...] this encounter Medical Devices Implanted Type Area Chisel Mortiser Operator Device Identifier Shelf Expiration Date Model / Serial / Lot Lens Intraoc 20.0 - [id number] - [id number] Implanted:Qty: 1 on 01/02/2020 by Guero Bell MD at OR [facility] Left: Eye BAUSCH & LOMB 07/03/2024 [id number] / [id number] / [id number] Lens Intraoc 20.0 - [id number] - [id number] Implanted:Qty: 1 on 01/16/2020 by Guero Bell MD at OR [facility] Right: Eye BAUSCH & LOMB 08/03/2024 [id number] / [id number] / [id number] documented as of this encounter Visit Diagnoses Diagnosis Acquired hypothyroidism Unspecified hypothyroidism Morbid obesity due to excess calories (HCC) documented in this encounter Care Teams Magnetic Tester Relationship Specialty Start Date End Date Kaitlin Brooks MD [address] [place] [address] PCP - General Family Medicine 04/23/18 documented as of this encounter
--- OUTSIDE RECORDS SUMMARY | 2024-01-17 10:37 | External Medical Summary | Summary of Care ---
Author Name Unknown Organization [facility] Address [address] [place] [facility] [place] [address] Phone [phone] Care Team Providers Care Pace Analyst Name Role Phone Kennedy Brooks MD Primary Care Provider [phone] Encounter Details Date Type Department Care Team (Late st Contact Info) Description 09/19/2023 2:40 PM EDT Telemedicine Nutrition and Weight Management [address] [place] [address] Emi Diego CRNP [address] [place] [address] Abnormal weight gain* Allergies Active Allergy Reactions Criticality Noted Date [...] night at bedtime . Active Saline Nasal Delmar 0.65 % Nasal Solution Administer 1 [place] into nostril as needed (nasal dryness, epistaxis). [...] bedtime. 90 Tablet 3 05/04/2023 Active Nystatin 244770 UNIT/GM External Powder (Nystop) Apply topically to [...] Auto-injector (Semaglutide-Weight Management)Indication s:PAD (peripheral artery disease) ([facility]) Inject 0.25 mg under the skin once [...] mRNA, LNP-s, No Pre serve, 2-Dose Series ([employer]) 01/08/2022,05/06/2021 COVID-19, MRNA-LNP, 23-24, P F, 50 [...] Care Team (Latest Contact Info) Description 4 4:00 PM EDT Home Visit Care Coordination and Integration [address] [place] [address] Eloisa Beard, Community Health Spool Hauler [address] [place] [address] 4 1:50 PM EDT Nutrition Services Nutrition & Weight Management, [facility] [address] [place] [address] Laura Hinds RDN [address] [place] [address] 4 9:23 AM EDT Hospital Encounter [place] [facility], Operating Room, [facility] - 4th Floor [address] [place] [address] Jan Haynes, DO [address] [place] [address] 4 9:23 AM EDT - 4 9:54 AM EDT Surgery OR [facility], Operating Room, [facility] - 4th Floor [address] [place] [address] Jan Haynes, DO [address] [place] [address] ESOPHAGOGASTRODUODENOSCOPY (EGD), FLEXIBLE, TRANSORAL, DIAGNOSTIC 4 9:40 AM EDT Telemedicine Nutrition and Weight Management [place] [address] [facility] [place] [address] Rosendo Oscar PA-C [address] [place] [address] 4 1:30 PM EDT Imaging Cardiac Studies, [facility] [place] [address] [place] [address] 4 10:00 AM EDT Office Visit Sleep Disorders Ctr [facility] [place] [address] [place] [phone] Iwona Yanez CRNP [address] [place] [address] 4 11:40 AM EDT Office Visit Nephrology, [place] [address] [place] [address] Joaquin Shelley MD [address] [place] [address] 4 11:00 AM EDT Office Visit Nutrition & Weight Management, [facility] [address] [facility] [place] [address] Sallie Marrero PA-C [address] [place] [address] 4 2:00 PM EST Office Visit Cardiology, [facility] [address] [place] [address] Clementine Wang PA-C [address] [place] [address] 4 2:00 PM EST Office Visit Family [facility], [place] [address] [place] [address] Kennedy Brooks MD [address] [place] [address] 5 2:00 PM EST Nurse Only Ancillary Department, [place] [address] [place] [address] [place], Nurse Annual Wellness [address] [place] [address] Scheduled Procedures Name Priority Associated Diagnoses Date/Ti [...] Additional history exists CKD HGB USE SMARTSET 79333 06/26/202406/26, 06/27/2023, 08/31/2022, Additional history exists CKD PHOS USE SMARTSET 53564 06/26/202406/05, 09/09/2020, 03/24/2020, Additional history exists HbA1c [...] this encounter Medical Devices Implanted Type Area Account Executive Device Identifier Shelf Expiration Date Model / Serial / Lot Lens Intraoc 20.0 - [id number] - [id number] Implanted:Qty: 1 on 01/02/2020 by Guero Bell MD at OR [facility] Left: Eye BAUSCH & LOMB 07/03/2024 [id number] / [id number] / [id number] Lens Intraoc 20.0 - [id number] - [id number] Implanted:Qty: 1 on 01/16/2020 by Guero Bell MD at OR [facility] Right: Eye BAUSCH & LOMB 08/03/2024 [id number] / [id number] / [id number] documented as of this encounter Visit Diagnoses Diagnosis Abnormal weight gain- Primary Morbid obesity due to excess calories (HCC) documented in this encounter Care Teams Pace Analyst Relationship Specialty Start Date End Date Kennedy Brooks MD [address] [place] [address] PCP - General Family Medicine 04/23/18 documented as of this encounter
--- OUTSIDE RECORDS SUMMARY | 2024-01-17 10:37 | External Medical Summary | Summary of Care ---
Author Name Unknown Organization [facility] Address [address] [place] [address] Phone [phone] Care Team Providers Care Location Director Name Role Phone Kennedy Brooks MD Primary Care Provider [phone] Encounter Details Date Type Department Care Team (Late st Contact Info) Description 09/21/2023 4:00 PM EDT Home Visit Care Coordination and Integration [address] [place] [address] Eloisa Beard, [facility] [address], [place] [id number] Allergies Active Allergy Reactions Criticality Noted Date Comments Paroxetine Hydrochloride Hives 06/07/2007 documented as of this encounter (statuses as of 09/26/2023) Medications Medication Sig Dispensed Refills Start Date [...] night at bedtime . Active Saline Nasal [place] 0.65 % Nasal Solution Administer 1 [place] into nostril as needed (nasal dryness, epistaxis). [...] bedtime. 90 Tablet 3 05/04/2023 Active Nystatin 671695 UNIT/GM External Powder (Nystop) Apply topically to [...] Auto-injector (Semaglutide-Weight Management)Indication s:PAD (peripheral artery disease) ([facility]) Inject 0.25 mg under the skin [...] as of this encounter (statuses as of 09/26/2023) Active Problems Problem Noted Date Diagnosed Date [...] as of this encounter (statuses as of 09/26/2023) Resolved Problems Problem Noted Date Diagnosed Date [...] as of this encounter (statuses as of 09/26/2023) Immunizations Name Administration Dates Next Due COVID-19 mRNA, LNP-s, No Pre serve, 2-Dose Series ([employer]) 01/08/2022,05/06/2021 COVID-19, MRNA-LNP, 23-24, P F, [...] as of this encounter Progress Notes * Eloisa Beard, [facility] - 09/21/2023 4:45 PM EDT Telemedicine visit: No [facility] ([facility]) documentation: CHW initiated home visit with patient. 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 Patient reported that she does not get a full nights sleep, even with her CPAP. She has o2 in with her CPAP. Patient does not get sleepy until 3am and sleeps until 11-11:30am if she does not have to go to work. Patient is considering getting weight lose surgery however she is still unsure whether or not to get it done. CHW provided verbal education on safety in the bathroom and suggested getting a shower chair and anti scid strips for on the bottom of the bathtub. CHW suggested going to [facility] for a shower chair and using her OTC card for the shower strips at [facility]. Also suggested [employer] for shower chair if [facility] does not have one. documented in this encounter Plan of Treatment Upcoming Encounters Date Type Department Care Team (Latest Contact Info) Description 4 1:50 PM EDT Nutrition Services Nutrition & Weight Management, [facility] [address] [place] [address] Laura Hinds RDN [address] [place] [address] 4 9:23 AM EDT Hospital Encounter OR [facility], Operating Room, [facility] - 4th Floor [address] [place] [address] Jan Haynes, DO [address] [address] 4 9:23 AM EDT - 4 9:54 AM EDT Surgery OR [facility], Operating Room, [facility] - 4th Floor [address] [place] [address] Jan Haynes, DO [address] [address] ESOPHAGOGASTRODUODENOSCOPY (EGD), FLEXIBLE, TRANSORAL, DIAGNOSTIC 4 9:40 AM EDT Telemedicine Nutrition and Weight Management [address] [place] [address] Rosendo Oscar PAJonna [address] [place] [address] 4 1:30 PM EDT Imaging Cardiac Studies, [facility] [address] [place] [address] 4 10:00 AM EDT Office Visit Sleep Disorders Ctr [facility] 132 [facility] [place] [phone] Iwona Yanez CRNP [address] [place] [address] 4 11:40 AM EDT Office Visit Nephrology, [facility] 200 [facility] [place] [address] Joaquin Shelley MD [address] [facility] [place] [address] 4 11:00 AM EDT Office Visit Nutrition & Weight Management, [facility] 132 [facility] [place] [address] Sallie Marrero, JACKIE [address] [facility] [place] [address] 4 2:00 PM EST Office Visit Cardiology, [facility] 132 [facility] [place] [address] Clementine Wang, PAJonna [address] [facility] [place] [address] 4 2:00 PM EST Office Visit Family Practice, [place] [address] [place] [facility] [place] [id number] Kennedy Brooks MD [address] [place] [address] 5 2:00 PM EST Nurse Only Ancillary Department, [place] [address] [facility] [address] [place], Nurse Annual Wellness [address] [place] [address] Scheduled Procedures Name Priority Associated Diagnoses Date/Ti [...] shot) (#1) 2023 02/22/2023 GFR 12/27/2023 06/27/2023, 0208/2023, 01/25/2023, Additional history exists Albumin/Creatinine Ratio 02/04/2024 023, 05/20/2021, 11/13/2017, Additional history exists CKD HGB USE SMARTSET 82487 06/26/202406/26, 06/27/2023, 08/31/2022, Additional history exists CKD PHOS USE SMARTSET 99791 06/26/202406/05, 09/09/2020, 03/24/2020, Additional history exists HbA1c [...] this encounter Medical Devices Implanted Type Area Ground Systems Engineer Device Identifier Shelf Expiration Date Model / Serial / Lot Lens Intraoc 20.0 - [id number] - [id number] Implanted:Qty: 1 on 01/02/2020 by Guero Bell MD at OR [facility] Left: Eye BAUSCH & LOMB 07/03/2024 [id number] / [id number] / [id number] Lens Intraoc 20.0 - [id number] - [id number] Implanted:Qty: 1 on 01/16/2020 by Guero Bell MD at OR [facility] Right: Eye BAUSCH & LOMB 08/03/2024 [id number] / [id number] / [id number] documented as of this encounter Care Teams Location Director Relationship Specialty Start Date End Date Kennedy Brooks MD [address] [place] [address] PCP - General Family Medicine 04/23/18 documented as of this encounter
--- OUTSIDE RECORDS SUMMARY | 2024-01-17 10:37 | External Medical Summary | Summary of Care ---
Author Name Unknown Organization [facility] Address [address] [place] [address] Phone [phone] Care Team Providers Care Director Surgical Name Role Phone Kennedy Brooks MD Primary Care Provider [phone] Encounter Details Date Type Department Care Team (Late st Contact Info) Description 09/19/2023 2:40 PM EDT Telemedicine Nutrition and Weight Management [address] [place] [address] Emi Diego CRNP [address] [place] [address] Abnormal weight gain* Allergies Active Allergy Reactions [...] night at bedtime . Active Saline Nasal [place] 0.65 % Nasal Solution Administer 1 [place] into nostril as needed (nasal dryness, epistaxis). [...] bedtime. 90 Tablet 3 05/04/2023 Active Nystatin 230253 UNIT/GM External Powder (Nystop) Apply topically to [...] Auto-injector (Semaglutide-Weight Management)Indication s:PAD (peripheral artery disease) ([facility]) Inject 0.25 mg under the skin [...] mRNA, LNP-s, No Pre serve, 2-Dose Series ([employer]) 01/08/2022,05/06/2021 COVID-19, MRNA-LNP, 23-24, P F, 52 [...] Visit Care Coordination and Integration [address] [place] [address] Eloisa Beard, [facility] [address] [place] [address] 4 1:50 PM EDT Nutrition Services Nutrition & Weight Management, [facility] [address] [place] [address] Laura Hinds RDN [address] [address] 4 9:23 AM EDT Hospital Encounter OR [facility], Operating Room, [facility] - 4th Floor [address] [place] [address] Jan Haynes, DO [address] [place] [address] 4 9:23 AM EDT - 4 9:54 AM EDT Surgery OR [facility], Operating Room, [facility] - 4th Floor [address] [place] [address] Jan Haynes, DO [address] [place] [address] ESOPHAGOGASTRODUODENOSCOPY (EGD), FLEXIBLE, TRANSORAL, DIAGNOSTIC 4 9:40 AM EDT Telemedicine Nutrition and Weight Management Tn [address] [facility] [place] [address] Rosendo Oscar PA-C [address] [place] [address] 4 1:30 PM EDT Imaging Cardiac Studies, [facility] [place] [address] [place] [address] 4 10:00 AM EDT Office Visit Sleep Disorders Ctr Mamta [facility] [place] [address] [place] [phone] Iwona Yanez CRNP [address] [address] 4 11:40 AM EDT Office Visit Nephrology, Kiley Gavin [address] [place] [address] Joaquin Shelley MD [address] [place] [address] 4 11:00 AM EDT Office Visit Nutrition & Weight Management, [facility] [address] [facility] [place] [address] Sallie Marrero PA-C [address] [place] [address] 4 2:00 PM EST Office Visit Cardiology, [facility] [address] [place] [address] Clementine Wang PA-C [address] [place] [address] 4 2:00 PM EST Office Visit Family [facility], [place] [address] [place] [address] Kennedy Brooks MD [address] [place] [address] 5 2:00 PM EST Nurse Only Ancillary Department, [place] [address] [place] [address] [place], Nurse Annual Wellness [address] [place] [address] Scheduled Procedures Name Priority Associated Diagnoses Date/Ti [...] Additional history exists CKD HGB USE SMARTSET 89054 06/26/202406/26, 06/27/2023, 08/31/2022, Additional history exists CKD PHOS USE SMARTSET 64010 06/26/202406/05, 09/09/2020, 03/24/2020, Additional history exists HbA1c [...] this encounter Medical Devices Implanted Type Area Furniture Decals Inspector Device Identifier Shelf Expiration Date Model / Serial / Lot Lens Intraoc 20.0 - [id number] - [id number] Implanted:Qty: 1 on 01/02/2020 by Guero Bell MD at OR [facility] Left: Eye BAUSCH & LOMB 07/03/2024 [id number] / [id number] / [id number] Lens Intraoc 20.0 - [id number] - [id number] Implanted:Qty: 1 on 01/16/2020 by Guero Bell MD at OR [facility] Right: Eye BAUSCH & LOMB 08/03/2024 [id number] / [id number] / [id number] documented as of this encounter Visit Diagnoses Diagnosis Abnormal weight gain- Primary Morbid obesity due to excess calories (HCC) documented in this encounter Care Teams Director Surgical Relationship Specialty Start Date End Date Kennedy Brooks MD [address] [place] [address] PCP - General Family Medicine 04/23/18 documented as of this encounter
--- OUTSIDE RECORDS SUMMARY | 2024-01-17 10:37 | External Medical Summary | Summary of Care ---
Author Name Unknown Organization [facility] Address [address] [place] [facility] [place] [address] Phone [phone] Care Team Providers Care Inhalation Therapist Name Role Phone Kennedy Brooks MD Primary Care Provider [phone] Reason for Visit * Reason Comments Weight Management The pt stated she is here to follow up regarding weight loss. Encounter Details Date Type Department Care Team (Latest Contact Info) Description 10/09/2023 1:50 PM EDT Nutrition Services Nutrition & Weight Management, [facility] [address] [place] [place] [address] Laura Hinds RDN [address] [place] [address] Abnormal weight gain*; Zinc deficiency; Obesity, Class III, BMI 40-49.9 (morbid obesity) (HCC) Allergies Active Allergy Reactions Criticality Noted Date Comments Paroxetine Hydrochloride Hives 06/07/2007 documented as of this encounter (statuses as of 10/09/2023) Medications Medication Sig Dispensed Refills Start Date [...] night at bedtime . Active Saline Nasal [place] 0.65 % Nasal Solution Administer 1 [place] into nostril as needed (nasal dryness, epistaxis). [...] bedtime. 90 Tablet 3 05/04/2023 Active Nystatin 479964 UNIT/GM External Powder (Nystop) Apply topically to [...] Auto-injector (Semaglutide-Weight Management)Indication s:PAD (peripheral artery disease) ([facility]) [...] as of this encounter (statuses as of 10/09/2023) Active Problems Problem Noted Date Diagnosed Date [...] as of this encounter (statuses as of 10/09/2023) Resolved Problems Problem Noted Date Diagnosed Date [...] as of this encounter (statuses as of 10/09/2023) Immunizations Name Administration Dates Next Due COVID-19 mRNA, LNP-s, No Pre serve, 2-Dose Series ([employer]) 01/08/2022,05/06/2021 COVID-19, MRNA-LNP, 23-24, P F, 52 [...] Sign Reading Time Taken Comments Blood Pressure 108/64 10/09/2023 1:48 PM EDT Pulse 89 10/09/2023 1:48 PM EDT Temperature 36.5 C (97.7 F) 10/09/2023 1:48 PM ED T Respiratory Rate - - Oxygen Saturation 93% 10/09/2023 1:48 PM EDT Inhaled Oxygen Concentration - - Weight 126.9 kg (279 lb 12.8 oz) 10/09/2023 1:48 PM EDT Height 160 cm (5' 3") 10/09/2023 1:48 PM EDT Body Mass Index 49.56 10/09/2023 1:48 PM EDT documented in this encounter Progress Notes * Rosy Hindsn, PRADIPN - 10/09/2023 1:50 PM EDT NUTRITION & WEIGHT MANAGEMENT PROGRESS NOTE Pre-operative Bariatric Surgery Program [facility] Name: Paige Hendricks Location: NUTRITION & WEIGHT MANAGEMENT, [facility] Date: 10/09/2023 Time: 12:27 PM Patient was identified at visit by name and date. Patient was seen [id number] in the clinic. NUTRITION ASSESSMENT Social Demographics: Lives with grandson will be 21 in September. Grandson is supportive of weight loss goals. Pt does the cooking and does the grocery shopping. 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 Barriers To Learning: None Special Education Needs: None The patient is preparing for bariatric surgery: Considering RYGB procedure Food allergies: No Supplements: Vit D Taking a MVI women's blend from [employer] one a day Citrical one a day Previous Challenges/Barriers to Healthier Lifestyle: Lost >50 lbs through a Wt loss program in [place] (supplements/bars, exercise,) Gobi supplement, trying to reduce portions. 10/09/23 -light status, still yellow from RD [...] fluid intake Adequate protein intake PHYSICAL ACTIVITY: going to PT for back pain, walking every other day for 10-15 min with heat and humidity ANTHROPOMETRICS: Initial clinic visit 04/26/2023 Weight 301 lbs Height 65" Body mass index is 50.19 kg/m. Current weight: 279 lbs MAXIM Weight: 296 lbs Date: 06/28/23 Weight changes: -27 lbs since BME Wt Readings from Last 10 Encounters: 08/25/23 129 kg (284 lb 6.4 oz) 08/21/23 129.1 kg (284 lb 11.2 oz) 08/08/23 130 kg (286 lb 8 oz) 06/28/23 134.3 kg (296 lb) 06/23/23 133.4 kg (294 lb) 05/24/23 (!) 136.5 kg (301 lb) 05/11/23 135.6 kg (298 lb 14.4 oz) 04/26/23 (!) 136.8 kg (301 lb 9.6 oz) 04/21/23 (!) 138.6 kg (305 lb 9.6 oz) 03/29/23 (!) 138.8 kg (306 lb) MNT: Calorie Controlled Diet, Low Fat Diet, High Fiber Diet, Good Nutrition, Nutrient Dense Diet, at least 60 grams Protein Patient is interested in the following treatment options for obesity: surgical options including Phuc-en-Y gastric bypass. LABS: Latest Reference Range & Units 06/28/23 10:38 Folic Acid >4.5 ng/mL 13.2 Vitamin A (Retinol) 38 - 98 mcg/dL 56 ZINC 60 - 130 mcg/dL 55 (L) COPPER 70 - 175 mcg/dL 83 PTH 15 - 65 pg/mL 104 (H) PTH Rpt ! 25-Hydroxy Vitamin D >19 ng/mL 62 25-HYDROXY VITAMIN D Rpt Insulin 3 - 25 uU/mL 13 (L): Data is abnormally low (H): Data is abnormally high !: Data is abnormal Rpt: View report in Results Review for more information NUTRITION PRESCRIPTION: RMR = 1526 --> x 1.2 activity factor = 1831 Kcals/day for weight maintenance -Calorie goal for weight loss = 1300 Kcals/day KNOWLEDGE ASSESSMENT: adequate knowledge BARRIERS TO LEARNING: None SPECIAL EDUCATION NEEDS: None NUTRITION DIAGNOSIS: Overweight/obesity related to excessive energy intake and physical inactivity as evidenced by BMI of 49.56 kg/m, Class III Obesity. NUTRITION INTERVENTION READINESS: YELLOW. It is my professional opinion that there are dietary contraindications to proceeding with the bariatric surgery process. There are additional recommendations noted in 'eating behaviors to modify/continue' at the end of the report that should be implemented to enhance this patient's success. INSTRUCTED PT ON THESE NUTRITION HANDOUTS: None given PATIENT GOALS: Chewing Well: aim to follow 90% of the time (50% of the time now)--> following 75% of the time, goal is 90% of the time : Aim to follow 90% of the time (50% of the time now) ---> following 75% of the time, goal is 90% of the time EXPECTED OUTCOMES: Demonstrated interest in learning. Expect compliance with diet recommendations. PLAN: [address] 30 min visit Laura Hinds RDN documented in this encounter Nursing Notes * Anastacio Brown LPN - 10/09/2023 1:48 PM EDT Chief Complaint Patient presents with Weight Management The pt stated she is here to follow up regarding weight loss. documented in this encounter Plan of Treatment Upcoming Encounters Date Type Department Care Team (Latest Contact Info) Description 4 9:23 AM EDT Hospital Encounter OR [facility], Operating Room, [facility] Floor [address] [place] [address] Jan Haynes, DO [address] [place] [address] 4 9:23 AM EDT - 4 9:54 AM EDT Surgery OR [facility], Operating Room, [facility] Floor [address] [place] [address] Jan Haynes, DO [address] [place] [address] ESOPHAGOGASTRODUODENOSCOPY (EGD), FLEXIBLE, TRANSORAL, DIAGNOSTIC 4 9:40 AM EDT Telemedicine Nutrition and Weight Management [address] [place] [address] Rosendo Oscar PA-C [address] [place] [address] 4 1:30 PM EDT Imaging Cardiac Studies, [facility] 132 [facility] [place] [address] 4 10:00 AM EDT Office [facility] [place] [phone] Iwona Yanez CRNP 132 [facility] [place] [address] 4 2:00 PM EDT Telemedicine Nutrition and Weight Management, [place] [address] [place] [address] Brianna Diehl, RDN [address] [place] [address] 4 11:40 AM EDT Office Visit Nephrology, [facility] [address] [facility] [place] [address] Joaquin Shelley MD 200 [facility] [place] [address] 4 11:00 AM EDT Office Visit Nutrition & Weight Management, [facility] 132 [facility] [place] [address] Sallie Marrero PA-C [address] [facility] [place] [address] 4 2:00 PM EST Office Visit Cardiology, [facility] 132 [facility] [place] [address] Clementine Wang PA-C [address] [place] [address] 4 2:00 PM EST Office Visit [address] [phone] Kennedy Brooks MD [address] [place] [facility] [place] [address] 2:00 PM EST Nurse Only Ancillary Department, [place] [address] [facility], [place] [address] [place], Nurse Annual Wellness [address] [place] [facility] [place] [address] Scheduled Procedures Name Priority Associated Diagnoses Date/Ti [...] Additional history exists CKD HGB USE SMARTSET 49720 06/26/202406/26, 06/27/2023, 08/31/2022, Additional history exists CKD PHOS USE SMARTSET 03128 06/26/202406/05, 09/09/2020, 03/24/2020, Additional history exists HbA1c [...] this encounter Medical Devices Implanted Type Area Otr Refrigerated Cdl Truck Driver Device Identifier Shelf Expiration Date Model / Serial / Lot Lens Intraoc 20.0 - [id number] - [id number] Implanted:Qty: 1 on 01/02/2020 by Guero Bell MD at OR [facility] Left: Eye BAUSCH & LOMB 07/03/2024 [id number] / [id number] / [id number] Lens Intraoc 20.0 - [id number] - [id number] Implanted:Qty: 1 on 01/16/2020 by Guero Bell MD at OR [facility] Right: Eye BAUSCH & LOMB 08/03/2024 [id number] / [id number] / [id number] documented as of this encounter Visit Diagnoses Diagnosis Abnormal weight gain- Primary Zinc deficiency Mineral deficiency, not elsewhere classified Obesity, Class III, BMI 40-49.9 (morbid obesity) (HCC) Morbid obesity Morbid obesity due to excess calories (HCC) documented in this encounter Care Teams Inhalation Therapist Relationship Specialty Start Date End Date Kennedy Brooks MD [address] [place] [address] PCP - General Family Medicine 04/23/18 documented as of this encounter
--- OUTSIDE RECORDS SUMMARY | 2024-01-17 10:38 | External Medical Summary | Summary of Care ---
Author Name Unknown Organization [facility] Address [address] [place] [address] Phone [phone] Care Team Providers Care Payable Representative Name Role Phone Kennedy Brooks MD Primary Care Provider [phone] Reason for Visit * Reason Onset Date Comments FYI 05/24/2023 Encounter Details Date Type Department Care Team ([facility] st Contact Info) Description 05/24/2023 Telephone Access Center, [place] [address] [facility] *DO NOT REMOVE THIS DEPARTMENT* [place] [phone] Services, Scheduling [address] [place] [address] Allergies Active Allergy Reactions Criticality Noted Date Comments Paroxetine Hydrochloride Hives 06/07/2007 documented as of this encounter (statuses as of 08/23/2023) Medications Medication Sig Dispensed Refills Start Date [...] night at bedtime . Active Saline Nasal Bolt 0.65 % Nasal Solution Administer 1 Bolt into nostril as needed (nasal dryness, epistaxis). [...] eye in am and at bedtime. Active Levocetirizine Dihydrochloride 5 MG Oral TabletIndications:Chr onic rhinitis Take 1 Tablet by mouth every evening. 90 Tablet 3 08/02/2022 Active Probiotic Daily Oral Capsule Take 1 [...] EVERY MORNING 90 Tablet 3 02/13/2023 Active Omeprazole 20 MG Oral Capsule Delayed Release (PriLOSEC)Indications :Heartburn TAKE 1 CAPSULE BY MOUTH IN THE MORNING AND 1 CAPSULE BEFORE BEDTIME. TAKE 30 MINUTES BEFORE A MEAL.. 180 Capsule 1 03/01/2023 Active Atorvastatin Calcium 40 MG Oral Tablet (Lipitor)Indications: Other hyperlipidemia,Dyslip idemia, goal LDL below 70 TAKE ONE TABLET BY MOUTH EVERY EVENING 90 Tablet 3 03/01/2023 Active Losartan Potassium 25 MG Oral Tablet (Cozaar)Indications:H TN, goal below 140/90 TAKE ONE TABLET BY MOUTH EVERY DAY 90 Tablet 2 04/03/2023 Active QUEtiapine Fumarate 200 MG Oral Tablet (SEROquel) Take 1 Tablet by mouth at bedtime. 90 Tablet 3 05/04/2023 Active documented as of this encounter (statuses as of 08/23/2023) Active Problems Problem Noted Date Diagnosed Date Aortic root enlargement 08/22/2023 Prediabetes 07/17/2023 Overview: Per Prediabetes protocol Body mass index (BMI) of 45.0 to 49.9 in adult 0 05/15/2023 Overview: Per Obesity protocol - Per Obesity protocol - Per Obesity protocol - Per Obesity protocol AMIRA (obstructive sleep apnea) 01/13/2023 Overview: [...] as of this encounter (statuses as of 08/23/2023) Resolved Problems Problem Noted Date Diagnosed Date Resolved Date Body mass index (BMI) of 50. 0 [...] as of this encounter (statuses as of 08/23/2023) Immunizations Name Administration Dates Next Due COVID-19 mRNA, LNP-s, No Pre serve, 2-Dose Series ([employer]) 01/08/2022,05/06/2021 COVID-19, MRNA-LNP, 23-24, P F, 52 [...] Answer Date Recorded PHQ Adult Total Score 0 04/21/2023 Hunger Vital Sign Answer Date Recorded Within the past 12 months, y ou worried that your food would run out before you got the money to buy more. Never true 04/21/19 24 Within the past 12 months, t he food you bought just didn't last and you didn't have money to get more. Never true 04/21/2023 Childcare Answer Date Recorded Do you feel overwhelmed with taking care of a child, family member or friend? No 04/21/2023 Does your family need help f inding childcare? (Household - for ages 0-17 years) Not on file 04/21/2023 Clothing Answer Date Recorded Have you been unable to get clothing when it was really needed? No 04/21/2023 Is your family able to get c lothes or diapers when needed? (Household - for ages 0-17 years) Not on file 04/21/2023 Personal Safety Answer Date Recorded Do you feel unsafe or have concerns for your saf ety? No 04/21/2023 Do you have concerns for you r family's safety? (Household - for ages 0-17 years) Not on file 04/21/2023 Utilities Answer Date Recorded Do you have trouble paying y our heating, water, or electric bill? No 04/21/2023 Is your family able to pay t he heat, water, or electric bill? (Household - for ages 0-17 years) Not on file 04/21/2023 Does your family have access to good internet? (Household - for ages 0-17 years) Not on file 04/21/2023 Employment Status Answer Date Recorded Are you unemployed or without regular income? No 04/21/2023 Does the household have a [facility] source [facility] income? (Household - for ages 0-17 years) Not on file 04/21/2023 Social Connections Answer Date Recorded How often do you feel lonely or isolated from those around you? Sometimes 04/21/2023 Financial Resource Strain Answer Date R ecorded Do you have any trouble payi ng for your medications, or do you think you might in the future? No 04/21/2023 Does your family have troubl e paying for medicine? (Household - for ages 0-17 years) Not on file 04/21/2023 Transportation Needs Answer Date Record ed READ ONLY Do you have troubl e getting a ride to medical visits or work? Never True 04/21/2023 Does your family have a hard time getting a ride to doctors visits? (Household - for ages 0-17 years) Not on file 04/21/2023 Has lack of transportation k ept you from medical appointments, meetings, work, or from getting things needed for daily living? Check all that apply. (Adult - for ages 18 years and over) Not on file 04/21/2023 Do you (or your family) have trouble finding or paying for a ride (transportation)? (Household - for ages 0-17 years) Not on file 04/21/2023 Housing Stability Answer Date Recorded Do you currently live in a s helter or have no steady place to sleep at night? No 04/21/2023 READ ONLY Do you think you a re at risk of becoming homeless? No 04/21/2023 Does your family worry about paying for your home or becoming homeless? (Household - for ages 0-17 years) Not on file 0 04/21/2023 Are you homeless or worried that you might be in the future? (Adult - for ages 18 years and over) Not on file Are you (or your family) grecia eless or worried that you might be in the future? (Household - for ages 0-17 years) Not on file Food Insecurity Answer Date Recorded Do you need food for this week? No 04/21/2023 Are you able to get enough f ood for your family? (Household - for ages 0-17 years) Not on file 04/21/2023 Does your family need food t his week? (Household - for ages 0-17 years) Not on file 04/21/2023 Do you always have enough fo od for your family? (Household - for ages 0-17 years) Not on file 04/21/2023 Sex and Gender Information Value Date Recorded Sex Assigned at Female 10/29/2018 9:59 AM EDT Gender Identity Female 10/29/2018 9:59 AM EDT Sexual Orientation Straight 10/29/2018 9: 59 AM EDT Job Start Date Occupation Industry Not on file Not on file Not on file documented as of this encounter Miscellaneous Notes * Telephone Encounter - Kaye Yoder OSA - 05/24/2023 3:54 PM EDT Paige calling back, missed a call from Nutrition and weight management today 05/23, agent did not specify what she needed to call back for, no TE's were found either in regards to the call she received today. Paige stated that if it is important to please call her back documented in this encounter Plan of Treatment Upcoming Encounters Date Type Department Care Team (Latest Contact Info) Description 4 2:20 PM EDT Office Visit [facility], [place] [address] [place] [facility] [place] [id number] Kennedy Brooks MD [address] [facility] [place] [address] 4 1:00 PM EDT Imaging Radiology, [facility] [address] [facility] [place] [address] 4 9:00 AM EDT Therapy Psychology, [facility] [address] [facility] [place] [address] Luz Carranza, [facility] [address] [place] [address] 4 1:30 PM EDT Telemedicine Nutrition & Weight Management, [facility] [address] [place] [address] [facility], Surgery Class Provider Mamta [address] [place] [address] 4 2:40 PM EDT Telemedicine Nutrition & Weight Management, [facility] [address] [address] Chanda Bah PA-C [address] [place] [address] 4 1:50 PM EDT Nutrition Services Nutrition & Weight Management, [facility] [address] [address] Laura Hinds RDN [address] [place] [address] 4 10:35 AM EDT [facility], [facility] - 4th Floor [address] [place] [address] Jan Haynes, DO [address] [place] [address] 4 10:35 AM EDT - 4 11:06 AM EDT [facility], [facility] Room, [facility] - 4th Floor [address] [place] [address] Jan Haynes, DO [address] [place] [address] ESOPHAGOGASTRODUODENOSCOPY (EGD), FLEXIBLE, TRANSORAL, DIAGNOSTIC 4 1:30 PM EDT Imaging Cardiac Studies, [facility] [address] [place] [address] 4 10:00 AM EDT Office Visit [facility] Disorders Ctr [facility] [address] [place] [phone] Iwona Yanez CRNP [address] [place] [address] 4 11:40 AM EDT Office Visit Nephrology, [facility] [address] [place] [address] Joaquin Shelley MD [address] [place] [address] 4 11:00 AM EDT Office Visit Nutrition & Weight Management, [facility] [address] [place] [address] Sallie Marrero PA-C [address] [place] [address] 4 2:00 PM EST Office Visit Cardiology, [facility] [address] [place] [address] Clementine Wang, JACKIE [address] [place] [address] 2:00 PM EST Nurse Only Ancillary Department, [place] [address] [facility] [address] [place], Nurse [facility] Well[facility] [address] [facility] [address] Scheduled Procedures Name Priority Associated Diagnoses Date/Ti me ESOPHAGOGASTRODUODENOSCOPY ( EGD), FLEXIBLE, TRANSORAL, DIAGNOSTIC Morbid obesity due to excess calories (HCC) 10/11/2023 10:35 AM EDT COLONOSCOPY FLEXIBLE PROXIMA L DIAGNOSTIC Recall History of colon polyps Health Maintenance Due Date Last Done Comments Cologuard 2002 Fecal Occult Blood Test 2002 Sigmoidoscopy 2002 DXA Scan 2022 07/25/2007 Colonoscopy 05/10/2023 05/09/2018, 05/09/2018 Colorectal Cancer Screening 05/10/2023 COVID-19 Vaccine ( season) 2023 02/28/2023, 01/08/2022, 05/06/2021 Mammogram 09/02/2023 09/01/2022, 08/05, 06/16/2021, Additional history exists GFR 12/27/2023 06/27/2023, 04/06, 01/25/2023, Additional history exists Albumin/Creatinine Ratio 02/04/2024 023, 05/20/2021, 11/13/2017, Additional history exists Depression Monitoring 04/21/2024 04/21/2023 CKD HGB USE SMARTSET 78102 06/26/202406/26, 06/27/2023, 08/31/2022, Additional history exists CKD PHOS USE SMARTSET 05225 06/26/202406/05, 09/09/2020, 03/24/2020, Additional history exists HbA1c 06/26/2024 06/27/2023, 11/18/2010 TSH 06/26/2024 06/27/2023, 05/05, 09/23/2021, Additional history exists Lipid Panel 06/26/2028 06/27/2023, 09/04, 05/20/2021, Additional history exists DTaP,Tdap,and Td Vaccines (3 - Td or Tdap) 10/28/2029 10/29/2019, 08/21/2007 RETIRED - COLONOSCOPY-EVERY 5 YRS AGES 18-100 Discontinued 05/09/2018, 05/09/2018 Zoster Vaccines Completed 06/04/2020, 03/03/2020 Pneumococcal Vaccine: 65+ Years Completed 09/16/2022, 09/10/2013 Influenza Vaccine (FLU shot) Completed 02/22/2023 GARDASIL-HPV IMMUNIZATION SERIES Aged Out No longer eligible based on patient's age to complete this topic Hepatitis B Aged Out No longer eligi ble based on patient's age to complete this topic MENINGOCOCCAL (MENACTRA/MENVEO) Aged Out No longer eligible based on patient's age to complete this topic documented as of this encounter Medical Devices Implanted Type Area Second Helper Device Identifier Shelf Expiration Date Model / Serial / Lot Lens Intraoc 20.0 - [id number] - [id number] Implanted:Qty: 1 on 01/02/2020 by Guero Bell MD at OR [facility] Left: Eye [employer]USCH [employer] LOMB 07/03/2024 [id number] / [id number] / [id number] Lens Intraoc 20.0 - [id number] - [id number] Implanted:Qty: 1 on 01/16/2020 by Guero Bell MD at OR [facility] Right: Eye BAUSCH & LOMB 08/03/2024 [id number] / [id number] / [id number] documented as of this encounter Care Teams Payable Representative Relationship Specialty Start Date End Date Kennedy Brooks MD [address] [place] [address] PCP - General Family Medicine 04/23/18 documented as of this encounter
--- OUTSIDE RECORDS SUMMARY | 2024-01-17 10:38 | External Medical Summary | Summary of Care ---
Author Name Unknown Organization [facility] Address [address] [place] [address] Phone [phone] Care Team Providers Care Porcelain Waxer Name Role Phone Kaitlin Brooks MD Primary Care Provider [phone] Reason for Visit * Reason Comments eRx-Medication Refill Encounter Details Date Type Department Care Team ([facility] st Contact Info) Description 09/10/2023 Refill [facility] [address] [place] [address] Kaitlin Brooks MD [address] [place] [address] Heartburn Allergies Active Allergy Reactions Criticality Noted Date Comments Paroxetine Hydrochloride Hives 06/07/2007 documented as of this encounter (statuses as of 09/12/2023) Medications Medication Sig Dispensed Refills Start Date [...] night at bedtime . Active Saline Nasal [place] 0.65 % Nasal Solution Administer 1 [place] into nostril as needed (nasal dryness, epistaxis). [...] bedtime. 90 Tablet 3 4 Active Nystatin 884587 UNIT/GM External Powder (Nystop) Apply topically to affected area 3 times a day. 60 g 2 4 Active Torsemide 20 MG Oral Tablet (Demadex)Indication s:Chronic diastolic heart failure (HCC) Take 1 Tablet by mouth daily AND 0.5 Tablets daily at noon. 135 Tablet 3 4 Active Levothyroxine Sodium 100 MCG Oral Tablet (Levoxyl)Indication s:Acquired hypothyroidism TAKE 1 TABLET BY MOUTH EVERY DAY FIRST THING IN THE MORNING 90 Tablet 4 Active tiZANidine HCl 4 MG Oral [...] Auto-injector (Semaglutide-Weight Management)Indicati ons:PAD (peripheral artery disease) ([facility]) [...] A MEAL.. 180 Capsule 1 4 Active Omeprazole 20 MG Oral Capsule Delayed Release (PriLOSEC)Indicatio ns:Heartburn TAKE 1 CAPSULE BY MOUTH IN THE MORNING AND 1 CAPSULE BEFORE BEDTIME. TAKE 30 MINUTES BEFORE A MEAL.. 180 Capsule 1 3 09/12/19 24 Discontinued documented as of this encounter (statuses as of 09/12/2023) Active Problems Problem Noted Date Diagnosed Date Morbid obesity with BMI of 45.0-49.9, adult 06/03/2023 Atherosclerosis of coronary artery 08/25/2023 Aortic root [...] as of this encounter (statuses as of 09/12/2023) Resolved Problems Problem Noted Date Diagnosed Date [...] as of this encounter (statuses as of 09/12/2023) Immunizations Name Administration Dates Next Due COVID-19 mRNA, LNP-s, No Pre serve, 2-Dose Series ([employer]) 01/08/2022,05/06/2021 COVID-19, MRNA-LNP, 23-24, P F, 52 [...] encounter Miscellaneous Notes * Telephone Encounter - Ronit Valenzuela, [facility] - 09/12/2023 4:16 PM EDT Signed Prescriptions: Disp Refills Omeprazole 20 MG Oral Capsule Delayed Rele*180 Ca*1 Sig: TAKE 1CAPSULE BY MOUTH IN THE MORNING AND 1 CAPSULE BEFORE BEDTIME. TAKE 30 MINUTES BEFORE A MEAL..Authorizing Provider: KAITLIN BROOKS User: RONIT VALENZUELA documented in this encounter Plan of Treatment Upcoming Encounters Date Type Department Care Team (Latest Contact Info) Description 4 1:30 PM EDT Telemedicine Nutrition & Weight Management, [facility] [address] [place] [address] [facility], Surgery Class Provider [facility] [address] [place] [address] 4 2:40 PM EDT Telemedicine Nutrition & Weight Management, [facility] [address] [place] [address] Chanda Bah PA-C [address] [place] [address] 4 4:00 PM EDT Home Visit Care Coordination and Integration [address] [place] [address] Eloisa Beard, [facility] Speech Therapist [address] [place] [address] 4 1:50 PM EDT Nutrition Services Nutrition & Weight Management, [facility] [address] [place] [address] Laura Hinds RDN [address] [place] [address] 4 9:23 AM EDT Hospital Encounter [facility], Operating Room, [facility] - 4th Floor [address] [place] [address] Jan Haynes DO [address] [place] [address] 4 9:23 AM EDT - 4 9:54 AM EDT Surgery [facility], Operating Room, [facility] - 4th Floor [address] [place] [address] Jan Haynes DO [address] [place] [address] ESOPHAGOGASTRODUODENOSCOPY (EGD), FLEXIBLE, TRANSORAL, DIAGNOSTIC 4 1:30 PM EDT Imaging Cardiac Studies, [facility] [address] [place] [address] 4 10:00 AM EDT [facility] [place] [address] [place] [phone] Iwona Yanez CRNP [address] [place] [address] 4 11:40 AM EDT Office Visit Nephrology, [facility] [address] [place] [address] Joaquin Shelley MD [address] [facility] [place] [address] 4 11:00 AM EDT Office Visit Nutrition & Weight Management, [facility] [address] [place] [address] Sallie Marrero PA-C [address] [place] [address] 4 2:00 PM EST Office Visit Cardiology, [facility] [address] [place] [address] Clementine Wang PACadenC [address] [place] [address] 4 2:00 PM EST Office Visit Family Practice, [place] [address] [place] [facility] [place] [address] Kaitlin Brooks MD [address] [place] [address] 5 2:00 PM EST Nurse Only Ancillary Department, [place] [address] [place] [address] [place], Nurse Annual Wellness [address] [place] [address] Scheduled Procedures Name Priority Associated [...] Additional history exists CKD HGB USE SMARTSET 86362 06/26/202406/26, 06/27/2023, 08/31/2022, Additional history exists CKD PHOS USE SMARTSET 51397 06/26/202406/05, 09/09/2020, 03/24/2020, Additional history exists HbA1c 06/26/2024 06/27/2023, 11/18/2010 TSH 06/26/2024 06/27/2023, 05/05, 09/23/2021, Additional history exists Depression Monitoring 08/29/2024 08/30/2023 DTaP,Tdap,and Td Vaccines (3 - Td or Tdap) 10/28/2029 10/29/2019, 08/21/2007 DXA Scan 08/27/2033 08/28/2023, 07/25/2007 RETIRED - COLONOSCOPY-EVERY 5 YRS AGES [...] this encounter Medical Devices Implanted Type Area Conveyor Console Operator Device Identifier Shelf Expiration Date Model / Serial / Lot Lens Intraoc 20.0 - [id number] - [id number] Implanted:Qty: 1 on 01/02/2020 by Guero Bell MD at OR [facility] Left: Eye BAUSCH & LOMB 07/03/2024 [id number] / [id number] / [id number] Lens Intraoc 20.0 - [id number] - [id number] Implanted:Qty: 1 on 01/16/2020 by Guero Bell MD at OR [facility] Right: Eye BAUSCH & LOMB 08/03/2024 [id number] / [id number] / [id number] documented as of this encounter Visit Diagnoses Diagnosis Heartburn Morbid obesity due to excess calories (HCC) documented in this encounter Care Teams Porcelain Waxer Relationship Specialty Start Date End Date Kaitlin Brooks MD [address] [place] [address] PCP - General Family Medicine 04/23/18 documented as of this encounter
--- OUTSIDE RECORDS SUMMARY | 2024-01-17 10:38 | External Medical Summary | Summary of Care ---
Author Name Unknown Organization [facility] Address [address] [place] [address] Phone [phone] Care Team Providers Care Reconditioner Name Role Phone Kennedy Brooks MD Primary Care Provider [phone] Reason for Visit * Reason Onset Date Comments [facility]: Maintenance 09/05/2023 Encounter Details Date Type Department Care Team (Late st Contact Info) Description 09/05/2023 Telephone [facility], [facility] [address] [employer] [place] [id number] Kim Piper, RN [address] [employer] [place] [address] [facility]: Maintenance Allergies Active Allergy Reactions Criticality Noted Date Comments Paroxetine Hydrochloride Hives 06/07/2007 documented as of this encounter (statuses as of 09/05/2023) Medications Medication Sig Dispensed Refills Start Date [...] night at bedtime . Active Saline Nasal Campbell 0.65 % Nasal Solution Administer 1 Campbell into nostril as needed (nasal dryness, epistaxis). [...] A MEAL.. 180 Capsule 1 03/01/2023 Active Losartan Potassium 25 MG Oral Tablet (Cozaar)Indications:H TN, goal below 140/90 TAKE ONE TABLET BY MOUTH EVERY DAY 90 Tablet 2 04/03/2023 Active QUEtiapine Fumarate 200 MG Oral Tablet (SEROquel) Take 1 Tablet by mouth at bedtime. 90 Tablet 3 05/04/2023 Active Nystatin 724552 UNIT/GM External Powder (Nystop) Apply topically to affected area 3 times a day. 60 g 2 06/01/2023 Active Torsemide 20 MG Oral Tablet (Demadex)Indications: Chronic diastolic heart failure (HCC) Take 1 Tablet by mouth daily AND 0.5 Tablets daily at noon. 135 Tablet 3 06/13/2023 Active Levothyroxine Sodium 100 MCG Oral Tablet (Levoxyl)Indications: Acquired hypothyroidism TAKE 1 TABLET BY MOUTH EVERY DAY FIRST THING IN THE MORNING 90 Tablet 06/23/2023 Active tiZANidine HCl 4 MG Oral Tablet [...] Auto-injector (Semaglutide-Weight Management)Indication s:PAD (peripheral artery disease) ([facility]) Inject 0.25 mg under the [...] THE EVENING 90 Tablet 3 08/29/2023 Active documented as of this encounter (statuses as of 09/05/2023) Active Problems Problem Noted Date Diagnosed Date Morbid obesity with BMI of 45.0-49.9, adult /03/2023 Atherosclerosis of coronary artery 08/25/2023 Aortic root [...] as of this encounter (statuses as of 09/05/2023) Resolved Problems Problem Noted Date Diagnosed Date [...] as of this encounter (statuses as of 09/05/2023) Immunizations Name Administration Dates Next Due COVID-19 mRNA, LNP-s, No Pre serve, 2-Dose Series ([employer]) 01/08/2022,05/06/2021 COVID-19, MRNA-LNP, 23-24, P F, 52 [...] encounter Miscellaneous Notes * Telephone Encounter - Melida Vaughan LPN - 09/05/2023 5:48 PM EDT Done * Telephone Encounter - Kim iPper RN - 09/05/2023 7:29 AM EDT Lida, Can you please make sure that pt's CM is changed to Melida Melton in [facility]? [facility] Thank you! documented in this encounter Plan of Treatment Upcoming Encounters Date Type Department Care Team (Latest Contact Info) Description 1:30 PM EDT Telemedicine Nutrition & Weight Management, [facility] [address] [place] [address] [facility], Surgery Class Provider Mamta [address] [place] [id number] 4 2:40 PM EDT Telemedicine Nutrition & Weight Management, [facility] [address] [place] [address] Chanda Bah PA-C [address] [place] [address] 4 1:50 PM EDT Nutrition Services Nutrition & Weight Management, [facility] [address] [place] [address] Laura Hinds RDN [address] [place] [address] 4 10:35 AM EDT Hospital Encounter OR GL, Operating Room, [facility] - 4th Floor [address] [place] [address] Jan Haynes, DO [address] [place] [address] 4 10:35 AM EDT - 4 11:06 AM EDT Surgery OR [facility], Operating Room, [facility] - 4th Floor [address] [place] [address] Jan Haynes, DO [address] [place] [address] ESOPHAGOGASTRODUODENOSCOPY (EGD), FLEXIBLE, TRANSORAL, DIAGNOSTIC 4 1:30 PM EDT Imaging Cardiac Studies, [facility] [address] [place] [address] 4 10:00 AM EDT Office Visit Sleep Disorders Ctr [facility] 132 [facility] [place] [id number] Iwona Yanez CRNP 132 [facility] [place] [address] 4 11:40 AM EDT Office Visit Nephrology, [facility] [address] [facility] [place] [address] Joaquin Shelley MD [address] [facility] [place] [address] 4 11:00 AM EDT Office Visit Nutrition & Weight Management, [facility] 132 [facility] [place] [address] Sallie Marrero PA-C 132 [place] [address] 4 2:00 PM EST Office Visit [facility], [facility] [address] Clementine Wang, PA-Josefina [facility] [address] 4 2:00 PM EST Office Visit Family Practice, [facility] [address] [place] [address] Kennedy Brooks MD [address] [place] [address] 5 2:00 PM EST Nurse Only Ancillary Department, [facility] [address] [place] [address] [facility], Nurse Annual Wellness [address] [place] [address] Scheduled Procedures Name Priority Associated Diagnoses Date/Ti [...] Additional history exists CKD HGB USE SMARTSET 24698 06/26/202406/26, 06/27/2023, 08/31/2022, Additional history exists CKD PHOS USE SMARTSET 74929 06/26/202406/05, 09/09/2020, 03/24/2020, Additional history exists HbA1c [...] this encounter Medical Devices Implanted Type Area Cloth Winding Supervisor Device Identifier Shelf Expiration Date Model / Serial / Lot Lens Intraoc 20.0 - [id number] - [id number] Implanted:Qty: 1 on 01/02/2020 by Guero Bell MD at OR [facility] Left: Eye [employer] 07/03/2024 [id number] / [id number] / [id number] Lens Intraoc 20.0 - [id number] - [id number] Implanted:Qty: 1 on 01/16/2020 by Guero Bell MD at OR [facility] Right: Eye [employer] 08/03/2024 [id number] / [id number] / [id number] documented as of this encounter Care Teams Reconditioner Relationship Specialty Start Date End Date Kennedy Brooks MD [address] [place] [address] PCP - General Family Medicine 04/23/18 documented as of this encounter
--- OUTSIDE RECORDS SUMMARY | 2024-01-17 10:38 | External Medical Summary | Summary of Care ---
Author Name Unknown Organization [facility] Address [address] [place] [address] Phone [phone] Care Team Providers Care Procurement Clerk Name Role Phone Kennedy Brooks MD Primary Care Provider [phone] Reason for Visit * Reason Comments Follow Up Patient is here toda y for a follow up. Patient states no new concerns today. Encounter Details Date Type Department Care Team (Late st Contact Info) Description 08/25/2023 2:20 PM EDT Office Visit [facility] [address] [place] [address] Kennedy Brooks MD [address] [place] [address] Special screening for malignant neoplasms, colon*; PAD (peripheral artery disease) ([facility]); Other hyperlipidemia; Dyslipidemia, goal LDL below 70; Morbid obesity with BMI of 45.0-49.9, adult ([facility]); Atherosclerosis of coronary artery, unspecified vessel or lesion type, unspecified whether angina present, unspecified whether northern [place] or transplanted heart Allergies Active Allergy Reactions Criticality Noted Date Comments Paroxetine Hydrochloride Hives 06/07/2007 documented as of this encounter (statuses as of 08/25/2023) Medications Medication Sig Dispensed Refills Start Date [...] night at bedtime . Active Saline Nasal Reading 0.65 % Nasal Solution Administer 1 Reading into nostril as needed (nasal dryness, epistaxis). [...] bedtime. Active Levocetirizine Dihydrochloride 5 MG Oral TabletIndications:Ch ronic rhinitis Take 1 Tablet by mouth every evening. 90 Tablet 3 3 Active Probiotic Daily Oral Capsule Take 1 [...] EVERY MORNING 90 Tablet 3 3 Active Omeprazole 20 MG Oral Capsule Delayed Release (PriLOSEC)Indication s:Heartburn TAKE 1 CAPSULE BY MOUTH IN THE MORNING AND 1 CAPSULE BEFORE BEDTIME. TAKE 30 MINUTES BEFORE A MEAL.. 180 Capsule 1 3 Active Losartan Potassium 25 MG Oral Tablet (Cozaar)Indications: HTN, goal below 140/90 TAKE ONE TABLET BY MOUTH EVERY DAY 90 Tablet 2 4 Active QUEtiapine Fumarate 200 MG Oral Tablet (SEROquel) Take 1 Tablet by mouth at bedtime. 90 Tablet 3 4 Active Nystatin 092311 UNIT/GM External Powder (Nystop) Apply topically to affected area 3 times a day. 60 g 2 4 Active Torsemide 20 MG Oral Tablet (Demadex)Indications [...] MG-MCG Oral Tablet (Calcium Citrate-Vitamin D) Take 2 Tablets by mouth in the morning. Active Wegovy 0.25 MG/0.5ML Subcutaneous Solution Auto-injector (Semaglutide-Weight Management)Indicatio ns:PAD (peripheral artery disease) ([facility]) Inject 0.25 mg under the skin once a week. 6 mL 3 4 Active Atorvastatin Calcium 40 MG Oral Tablet (Lipitor)Indications :Other hyperlipidemia,Dysli pidemia, goal LDL below 70 Take 1 Tablet by mouth every evening. 90 Tablet 3 4 Active Atorvastatin Calcium 40 MG Oral Tablet (Lipitor)Indications :Other hyperlipidemia,Dysli pidemia, goal LDL below 70 TAKE ONE TABLET BY MOUTH EVERY EVENING 90 Tablet 3 3 08/25/19 24 Discontinu ed(Refill) Wegovy 0.25 MG/0.5ML Subcutaneous Solution Auto-injector (Semaglutide-Weight Management)Indicatio ns:PAD (peripheral artery disease) (HCC) Inject 0.25 mg under the skin once a week. 2 mL 5 4 08/25/19 24 Discontinu ed(Refill) documented as of this encounter (statuses as of 08/25/2023) Active Problems Problem Noted Date Diagnosed Date [...] as of this encounter (statuses as of 08/25/2023) Resolved Problems Problem Noted Date Diagnosed Date [...] as of this encounter (statuses as of 08/25/2023) Immunizations Name Administration Dates Next Due COVID-19 mRNA, LNP-s, No Pre serve, 2-Dose Series ([employer]) 01/08/2022,05/06/2021 COVID-19, MRNA-LNP, 23-24, P F, 50 [...] No 04/21/2023 Does the household have a re lar [...] Sign Reading Time Taken Comments Blood Pressure 112/72 08/25/2023 2:11 PM EDT Pulse 101 08/25/2023 2:11 PM EDT Temperature 36.6 C (97.9 F) 08/25/2023 2:11 PM ED T Respiratory Rate 16 08/25/2023 2:11 PM EDT Oxygen Saturation 95% 08/25/2023 2:11 PM EDT Inhaled Oxygen Concentration - - Weight 129 kg (284 lb 6.4 oz) 08/25/2023 2:11 PM EDT Height 160 cm (5' 3") 08/25/2023 2:11 PM EDT Body Mass Index 50.38 08/25/2023 2:11 PM EDT documented in this encounter Patient Instructions * Patient Instructions* Maia Julio LPN - 08/25/2023 2:11 PM EDT Images from the original note were not included. Colorectal Cancer Screening Colorectal cancer (cancer in the colon or rectum) is a leading cause of cancer deaths in the [place] But it doesnt have to be. When this cancer is found and removed early, the chances of a full recovery are very good. Because colorectal cancer rarely causes symptoms in its early stages, screening for the disease is important. Its even more crucial if you have risk factors for the disease. Learn more about colorectal cancer and its risk factors. Then talk to your healthcare provider about being screened. You could be saving your own life. Risk factors for colorectal cancer Your risk of having colorectal cancer increases if you: Are 50 years of age or older Have a family history or personal history of colorectal cancer or polyps Have a personal history of type 2 diabetes, Crohns disease, or ulcerative colitis Have an inherited genetic syndrome like Li syndrome (also known as HNPCC) or familial adenomatous polyposis (FAP) Are very overweight Are not physically active Smoke Drink a lot of alcohol Eat a lot of red or processed meat The colon and rectum Waste from food you eat enters the colon from the small intestine. As it travels through the colon,the waste (stool) loses water and becomes more solid. Intestinal muscles push it toward the sigmoid--the last section of the colon. Stool then moves into the rectum, where its stored until its ready to leave the body during a bowel movement. How cancer develops Polyps are growths that form on the inner lining of the colon or rectum. Most are benign, which means they arent cancerous. But over time, some polyps can become cancer (malignant). This happens when cells in these polyps begin growing abnormally. In time, malignant cells invade more and more ofthe colon and rectum. The cancer may also spread to nearby organs or lymph nodes or to other parts of the body. Finding and removing polyps can help prevent cancer from ever forming. Your screening Screening means looking for a health problem before you have symptoms. During screening for colorectal cancer, your healthcare provider will ask about your health history, examine you, and do one or more tests. History and exam The history and exam involve the following: Health history. Your healthcare provider will ask about your health history. Mention if a family member has had colon cancer or polyps. Also mention any health problems you have had in the past. Digital rectal exam (XIOMARA). During a XIOMARA, the healthcare provider inserts a lubricated gloved fingerinto the rectum. The test is painless and takes less than a minute. Healthcare providers agree thatthis test alone is not enough to screen for colorectal cancer. Screening test choices: Fecal occult blood test (FOBT) or fecal immunochemical test (FIT) These tests check for occult blood in stool (blood you cant see). Hidden blood may be a sign of colon polyps or cancer. A small sample of stool is tested for blood in a laboratory. Most often, youcollect this sample at home using a kit your healthcare provider gives you. Follow the instructionscarefully for using this kit. You might need to avoid certain foods and medicines before the test, as directed. Barium enema with contrast (double-contrast barium enema) This test uses X-rays to provide images of the entire colon and rectum. The day before this test, you will need to do a bowel prep to clean out the colon and rectum. A bowel prep is a liquid diet plus strong laxatives or enemas. You will be awake for the test, but you may be given medicine to help you relax. At the start of the test, a radiologist (a healthcare provider who specializes in imagingtests) places a soft tube into the rectum. The tube is used to fill the colon with a contrast liquid (barium) and air. This can be uncomfortable for some people. The liquid helps the colon show up clearly on the X-rays. Because the test uses X-rays, it exposes you to a small amount of radiation. Virtual colonoscopy This exam is also called a CT colonography. It uses a series of X-ray photographs to create a 3-D view of the colon and rectum. The day before the test, you will need to do a bowel prep to clean out your colon. Your healthcare provider will give you instructions on how to do this. During the procedure, you will lie on a table that is part of a special X-ray machine called a CT scanner. A small tube will be placed into your rectum to fill the colon and rectum with air. This can be uncomfortable for some people. Then, the table will move into the machine and pictures will be taken of your colonand rectum. A computer will combine these photos to create a 3-D picture. Because the test uses X-rays, it exposes you to a small amount of radiation. Cologuard Cologuard is an easy to use, noninvasive colon cancer screening test that you can use in the privacy of your own home. It identifies altered DNA and/or blood in stool, which are associated with the possibility of colon cancer or precancer. DNA is continuously shed from cells in the intestinal lining, where it is passed into the stool. Ifcancer or precancer is present, abnormal cells will shed into the colon and stool along with normalcells. A molecular biology process is used to capture specific pieces of DNA for further analysis. Scope exams Here are two types of scope exams: Colonoscopy. This test can be used to find and remove polyps anywhere in the colon or rectum. The day before the test, you will do a bowel prep. This is a liquid diet plus a strong laxative solution or an enema. The bowel prep will cleanse your colon. You will be given instructions for this. Just before the test, you are given a medicine to make you sleepy. Then, a long, flexible, lighted tube called a colonoscope is gently inserted into the rectum and guided through the entire colon. Images ofthe colon are viewed on a video screen. Any polyps that are found are removed and sent to a lab fortesting. If a polyp cant be removed, a sample of tissue is taken and the polyp might be removed l ater during surgery. You will need to bring someone with you to drive you home after this test. Sigmoidoscopy. This test is similar to colonoscopy, but focuses only on the sigmoid colon and rectum. As with colonoscopy, bowel prep must be done the day before this test. It might not need to be ascomplete as the bowel prep for a colonoscopy. You are awake during the procedure, but you may be given medicine to help you relax. During the test, the healthcare provider guides a thin, flexible, lighted tube called a sigmoidoscope through your rectum and lower colon. The images are displayed on avideo screen. Polyps are removed, if possible, and sent to a lab for testing. Colonoscopy is the only screening test that lets your healthcare provider see the entire colon and rectum. This test also lets your healthcare provider remove any pieces of tissue that need to be looked at by a lab. If something suspicious is found using any other tests, you will likely need a colonoscopy. When to call your healthcare provider after a test Call your healthcare provider if you have any of the following after any screening test: Bleeding Fever of 100.4F (38C) or higher, or as directed by your healthcare provider Abdominal pain Vomiting Date Last Reviewed: 01/07/201519996572-2143 [employer]. [address] [place] [address], [place] [address]. All rights reserved. This information is not intended as a substitute for professional medical care. Always follow your healthcare professional's instructions. documented in this encounter Progress Notes * Kennedy Brooks MD - 08/25/2023 3:03 PM EDT Subjective: Paige Hendricks is a 68 year old female. Chief Complaint Patient presents with Follow Up Patient is here today for a follow up. Patient states no new concerns today. HPI: 68-year-old seen today as a routine recheck. She now is followed with GI nutrition. She is on Wegovy as prescribed through GI nutrition. They have talked to her about bariatric surgery and according to the patient they are pushing the bariatric surgery. It should be noted her weight is down 20lb compared to a year ago. She has been followed by [facility] but they discharged her. She follows with Nephrology. Her latest GFR is slightly above 30 which is pretty stable. She notes that there was nothing that she can take for pain. Because of her kidney function she asked to avoid nonsteroidal anti-inflammatory agents and she has not found Tylenol to be affective. 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 Fibromyalgia Bipolar II disorder ([facility]) Dyslipidemia, goal LDL below 70 Other schizophrenia ([facility]) Chronic diastolic heart failure ([facility]) Hypertensive heart and kidney disease with chronic diastolic congestive heart failure and stage 3b chronic kidney disease ([facility]) Mild persistent asthma without complication Chronic kidney disease, stage 3b ([facility]) Lung nodule Hilar adenopathy Major depressive disorder, recurrent, moderate ([facility]) PAD (peripheral artery disease) ([facility]) AMIRA (obstructive sleep apnea) Body mass index (BMI) of 45.0 to 49.9 in adult ([facility]) Prediabetes Aortic root enlargement ([facility]) Current Outpatient Medications Medication Sig Dispense Refill [...] area 2 times a day. Toaffected area. 80 g 5 Levalbuterol Tartrate 45 MCG/ACT Inhalation Aerosol (Xopenex HFA) Inhale 1 Puff by mouth every 4 hours as needed for Wheezing. 15 g 12 Fluticasone Propionate 50 MCG/ACT Nasal Suspension Administer into each nostril 2 Sprays in the morning. 18.2 mL 11 CPAP every night at bedtime . Saline Nasal Reading 0.65 % Nasal Solution Administer 1 Reading into nostril as needed (nasal dryness, epistaxis). Polyethylene Glycol 3350 17 GM Oral Packet Take 1 Packet by mouth in the morning. DIURETIC TITRATION PLAN If no improvement on day 3, contact [facility] 1 Each 0 Xiidra 5 % Ophthalmic Solution (Lifitegrast) Instill 1 Drop into eye in the morning and 1 Drop before bedtime. 1 drop each eye in am and at bedtime. Levocetirizine Dihydrochloride 5 MG Oral Tablet Take 1 Tablet by mouth every evening. 90 Tablet 3 Probiotic Daily Oral Capsule Take 1 Capsule by mouth in the morning. Fluticasone Furoate-Vilanterol 100-25 MCG/ACT Inhalation Aerosol Powder Breath Activated (BREO ellipta) Inhale 1 Puff by mouth in the morning. 60 Each 5 Spironolactone 25 MG Oral Tablet (Aldactone) TAKE ONE TABLET BY MOUTH EVERY MORNING 90 Tablet 3 Omeprazole 20 MG Oral Capsule Delayed Release (PriLOSEC) TAKE 1 CAPSULE BY MOUTH IN THE MORNING AND1 CAPSULE BEFORE BEDTIME. TAKE 30 MINUTES BEFORE A MEAL.. 180 Capsule 1 Atorvastatin Calcium 40 MG Oral Tablet (Lipitor) TAKE ONE TABLET BY MOUTH EVERY EVENING 90 Tablet 3 Losartan Potassium 25 MG Oral Tablet (Cozaar) TAKE ONE TABLET BY MOUTH EVERY DAY 90 Tablet 2 QUEtiapine Fumarate 200 MG Oral Tablet (SEROquel) Take 1 Tablet by mouth at bedtime. 90 Tablet 3 Nystatin 680037 UNIT/GM External Powder (Nystop) Apply topically to affected area 3 times a day. 60g 2 Torsemide 20 MG Oral Tablet (Demadex) Take 1 Tablet by mouth daily AND 0.5 Tablets daily at noon. 135 Tablet 3 Levothyroxine Sodium 100 MCG Oral Tablet (Levoxyl) TAKE 1 TABLET BY MOUTH EVERY DAY FIRST THING IN THE MORNING 90 Tablet 0 tiZANidine HCl 4 MG Oral Tablet (Zanaflex) [...] CPAP 7-12 cm H2O 1 Each 0 Wegovy 0.25 MG/0.5ML Subcutaneous Solution Auto-injector (Semaglutide-Weight Management) Inject 0.25 mg under the skin once a week. 2 mL 5 Multi Vitamin Daily Oral Tablet Take by mouth daily. Citracal Petites/Vitamin D 200-6.25 MG-MCG Oral Tablet (Calcium Citrate-Vitamin D) Take 2 Tablets by mouth in the morning. No current facility-administered medications for this visit. Review of patient's allergies indicates: Allergen Reactions Paxil [Paroxetine Hydrochloride] Hives Objective: BP 112/72 | Pulse 101 | Temp 36.6 C (97.9 F) (Tympanic) | Resp 16 | Ht 1.6 m (5' 3") | Wt 129 kg (284 lb 6.4 oz) | SpO2 95% | BMI 50.38 kg/m | BSA 2.39 m Physical Exam: CONST: alert, pleasant, no acute distress HEAD: normocephalic, atraumatic NECK: supple, soft, no adenopathy Eyes - PERRLA, EOM'I OROPHARYNX: clear, no swelling or erythema, moist CV: regular rate and rhythm, no murmur CHEST: clear to auscultation bilaterally, no rales or wheezing ABD: soft, non tender, non distended, no masses or hepatosplenomegaly EXT: no edema, no joint swelling or deformities, NEURO: AAOx3, no gross focal deficits, cerebellar signs normal, affect appropriate MENTAL STATUS: no evidence of thought disorder, no delusional thought, no evidence of paranoia, thought is non-tangential. SKIN: no rash or significant lesions ASSESSMENT/PLAN: Special screening for malignant neoplasms, colon (Primary)-she is already scheduled for colonoscopy PAD (peripheral artery disease) (HCC)-stable-currently no signs of claudication Other hyperlipidemia colon cancer screening-she is already set up for colonoscopy in October Dyslipidemia, goal LDL below 70 CKD 3-continue follow with Dr. Guadalupe. He mentioned possibly backing off on torsemide. She is currently using 30 mg daily. She tells me she is having ongoing problems with fluid retention in particular she stands for prolonged time which he is doing more currently as she is working at [employer]. Routine health maintenance-highly encouraged her to get flu shot in RSV in the fall. See again 6 months she will need routine blood work at that time. Kennedy Brooks MD documented in this encounter Nursing Notes * Maia Julio LPN - 08/25/2023 2:20 PM EDT The patient has been properly identified by confirmation of name and date of . Chief Complaint Patient presents with Follow Up Patient is here today for a follow up. Patient states no new concerns today. documented in this encounter Plan of Treatment Upcoming Encounters Date Type Department Care Team (Latest Contact Info) Description 4 1:00 PM EDT Imaging Radiology, [facility] [address] [facility] [place] [address] 4 9:00 AM EDT Therapy Psychology, [facility] [address] [facility] [place] [address] Luz Carranza, [facility] [address] [facility] [place] [address] 4 1:30 PM EDT Telemedicine Nutrition & Weight Management, [facility] [address] [place] [address] [facility], Surgery Class Provider Mam[place] [address] [place] [address] 4 2:40 PM EDT Telemedicine Nutrition & Weight Management, [facility] [address] [address] Chanda Bah PA-C [address] [place] [address] 4 1:50 PM EDT Nutrition Services Nutrition & Weight Management, [facility] [address] [address] Laura Hinds RDN [address] [place] [address] 4 10:35 AM EDT Hospital Encounter OR GL, Operating Room, [facility] - 4th Floor [address] [place] [address] Jan Haynes, DO [address] [place] [address] 4 10:35 AM EDT - 4 11:06 AM EDT Surgery OR [facility], Operating Room, [facility] - 4th Floor [address] [address] Jan Haynes, DO [address] [place] [address] ESOPHAGOGASTRODUODENOSCOPY (EGD), FLEXIBLE, TRANSORAL, DIAGNOSTIC 4 1:30 PM EDT Imaging Cardiac Studies, [facility] [address] [place] [address] 4 10:00 AM EDT Office Visit Sleep Disorders Ctr [facility] [address] [place] [phone] Iwona Yanez CRNP [address] [place] [address] 4 11:40 AM EDT Office Visit Nephrology, [facility] [address] [place] [address] Joaquin Shelley MD [address] [place] [address] 4 11:00 AM EDT Office Visit Nutrition & Weight Management, [facility] [address] [address] Sallie Marrero PA-C [address] [place] [address] 4 2:00 PM EST Office Visit Cardiology, [facility] [address] [place] [address] Clementine Wang PA-C [address] [place] [address] 4 2:00 PM EST Office Visit [facility], [place] [address] [facility] [id number] Kennedy Brooks [facility] [address] [facility] [address] 5 2:00 PM EST Nurse Only Ancillary Department, [place] [address] [facility] [id number] [place], Nurse Annual Wellness [address] [facility] [id number] Scheduled Procedures Name Priority Associated Diagnoses Date/Ti [...] Monitoring 04/21/2024 04/21/2023 CKD HGB USE SMARTSET 64282 06/26/202406/26, 06/27/2023, 08/31/2022, Additional history exists CKD PHOS USE SMARTSET 28620 06/26/202406/05, 09/09/2020, 03/24/2020, Additional history exists HbA1c 06/26/2024 06/27/2023, 11/18/2010 TSH 06/26/2024 06/27/2023, 05/05, 09/23/2021, Additional history exists DTaP,Tdap,and Td Vaccines (3 [...] this encounter Medical Devices Implanted Type Area Medical Assistant Float Device Identifier Shelf Expiration Date Model / Serial / Lot Lens Intraoc 20.0 - [id number] - [id number] Implanted:Qty: 1 on 01/02/2020 by Guero Bell MD at OR [facility] Left: Eye [employer] 07/03/2024 [id number] / [id number] / [id number] Lens Intraoc 20.0 - [id number] - [id number] Implanted:Qty: 1 on 01/16/2020 by Guero Bell MD at OR [facility] Right: Eye [employer]OM[employer] 08/03/2024 [id number] / [id number] / [id number] documented as of this encounter Visit Diagnoses Diagnosis Special screening for malignant neoplasms, colon- Primary PAD (peripheral artery disease) (HCC) Peripheral vascular disease, unspecified Other hyperlipidemia Dyslipidemia, goal LDL below 70 Other and unspecified hyperlipidemia Morbid obesity with BMI of 45.0-49.9, adult (HCC) Morbid obesity Atherosclerosis of coronary artery, unspecified vessel or lesion type, unspecified whether angina present, unspecified whether [place] or transplanted heart Morbid obesity due to excess calories (HCC) documented in this encounter Care Teams Procurement Clerk Relationship Specialty Start Date End Date Kennedy Brooks MD [address], [place] [id number] PCP - General Family Medicine 04/23/18 documented as of this encounter
--- OUTSIDE RECORDS SUMMARY | 2024-01-17 10:38 | External Medical Summary | Summary of Care ---
Author Name Unknown Organization [facility] Address [address] [place] [address] Phone [phone] Care Team Providers Care Jet Wiper Name Role Phone Kennedy Brooks MD Primary Care Provider [phone] Reason for Visit * Reason Comments Follow Up * - Authorized Specialty Diagnoses / Procedures Referred By Contac t Referred To Contact Referral ID Status Reason Start Date Expiration Date V isits Requested Visits Authorized [id number] Authorized 07/30/2024 999 [id number] Encounter Details Date Type Department Care Team (Late st Contact Info) Description 08/31/2023 9:00 AM EDT Therapy Psychology, [facility] [address] [place] [address] Luz Carranza O, [facility] [address] [place] [address] Major depressive disorder, recurrent episode, mild (HCC)*; Class 3 severe obesity due to excess calories with body mass index (BMI) of 45.0 to 49.9 in adult, unspecified whether serious comorbidity present (HCC); Psychological factors affecting medical condition Allergies Active Allergy Reactions Criticality Noted Date Comments Paroxetine Hydrochloride Hives 06/07/2007 documented as of this encounter (statuses as of 08/31/2023) Medications Medication Sig Dispensed Refills Start Date [...] night at bedtime . Active Saline Nasal [place] 0.65 % Nasal Solution Administer 1 [place] into nostril as needed (nasal dryness, epistaxis). [...] bedtime. 90 Tablet 3 05/04/2023 Active Nystatin 920774 UNIT/GM External Powder (Nystop) Apply topically to [...] as of this encounter (statuses as of 08/31/2023) Active Problems Problem Noted Date Diagnosed Date [...] as of this encounter (statuses as of 08/31/2023) Resolved Problems Problem Noted Date Diagnosed Date [...] as of this encounter (statuses as of 08/31/2023) Immunizations Name Administration Dates Next Due COVID-19 mRNA, LNP-s, No Pre serve, 2-Dose Series ([employer]) 01/08/2022,05/06/2021 COVID-19, MRNA-LNP, 23-24, P F, 52 [...] on file documented as of this encounter Patient Instructions * Patient Instructions* Luz Carranza, PrabhjotyD - 08/31/2023 9:38 AM EDT You have a Green light from Behavioral Medicine. There are recommendations noted below that should be followed to enhance success. The follow up plan is as follows: No follow-up with behavioral medicine at this time. Continue to follow-up with Nutrition and WeightManagement. Recommendations: -Continue all behavioral changes, especially: -Eating three meals, and two snacks per day. Set a regular schedule to the extent possible, use liquid meals as a substitute if you don't like heavy food in the morning, talk with boss/coworkers/family about the need for regular eating times, talk with the dieticians about planning snacks throughout the day -Increasing exercise. Park further away, take steps instead of elevators, swimming is great for those with pain/difficulty walking, walking is cheap and easy, get an exercise partner (family, friend,or pet will do), listen to music while you exercise, try different types of exercise to find one you like (e.g., walking, riding bike, going to gym, swimming, exercise videos), get on a regular exercise schedule, do chair exercises for upper body if knees/legs/back are problems If you have any questions, you can contact Luz Carranza PsyD at . documented in this encounter Progress Notes * Luz Carranza PsyD - 08/31/2023 9:00 AM EDT Patient location: CLINIC. I was in the same facility as the patient. After connecting through [employer], patient was verified with two unique identifiers. Patient (or authorized legal access service representative)was then informed that this was a Telemedicine visit and being conducted confidentially over securelines. My office door was closed. No one else was in the room with me. Patient acknowledged consentand understanding of privacy and security of the Telemedicine visit, and gave permission to have a telemedicine presenter stay in the room in order to assist with the history and to conduct the exam as needed. I informed the patient that I have reviewed their record in [employer] and presented the opportunity for them to ask any questions regarding the visit today. The patient agreed to participate. Provider reviewed elements of Outpatient Services Description including limits of confidentiality, how to contact the department, risks and benefits of treatment and consent for treatment. Start Time: 9:10am (Pt arrived late) Stop Time: 9:40am Total direct [id number]-xt-[id number] time: 30 minutes BEHAVIORAL MEDICINE ASSESSMENT FOR BARIATRIC SURGERY: LIGHT STATUS REVIEW Kiley Davis [address] [place] [address] 08/31/2023 9:00 AM Paige Hendricks ([id number]) is a 68 year old female who comes on referral from Nutrition and Weight Management for psychological evaluation and preparation for potential bariatric surgery. Paige's primary care provider is Kennedy Brooks MD. Paige was previously evaluated on 08/01/23 and concerns were expressed about bariatric surgery readiness. Time spent on this evaluation was 30 minutes. Paige was accompanied by her grandson, whom she requested and verbally consented to being presentduring the appointment. RECOMMENDATION BASED ON PSYCHOLOGICAL EVALUATION You have a Green light from Behavioral Medicine. There are recommendations noted below that should be followed to enhance success. The follow up plan is as follows: No follow-up with behavioral medicine at this time. Continue to follow-up with Nutrition and WeightManagement. Recommendations: -Continue all behavioral changes, especially: -Eating three meals, and two snacks per day. Set a regular schedule to the extent possible, use liquid meals as a substitute if you don't like heavy food in the morning, talk with boss/coworkers/family about the need for regular eating times, talk with the dieticians about planning snacks throughout the day -Increasing exercise. Park further away, take steps instead of elevators, swimming is great for those with pain/difficulty walking, walking is cheap and easy, get an exercise partner (family, friend,or pet will do), listen to music while you exercise, try different types of exercise to find one you like (e.g., walking, riding bike, going to gym, swimming, exercise videos), get on a regular exercise schedule, do chair exercises for upper body if knees/legs/back are problems If you have any questions, you can contact Luz Carranza PsyD at . SUMMARY The decision noted above is based on the following: Paige has made significant weight loss attempts in the past, but without lasting success. Paige experienced mild mental health problems in the past year. Paige experienced serious mental health problems earlier in life. Paige is not engaging in problematic eating behaviors. Paige is knowledgeable about the surgery and related risks. Paige is knowledgeable about the 4-step diet following surgery. Paige's motivation for surgery is: Good Paige's social support is: Fair Paige is aware of expected surgery weight loss with surgery. Paige is aware of the habit changes that will need to occur and is actively engaged in changing those now. Paige is making progress towards weight goal and there is not a medical indication for weight gain. MENTAL HEALTH PROVIDER COMMUNICATION (IF NEEDED) N/A Of note, now connected with [facility] for assistance finding outside OP individual therapy/counseling. PREVIOUS BEHAVIORAL RECOMMENDATIONS WITH UPDATES Recommendations from initial evaluation are listed below with updates in italics: -Continue behavioral changes, especially: -Eating slowly, chewing food to applesauce consistency. Take between 20-40 chews depending on food,set aside plenty of time for the meal, take smaller bites (children's utensils can help with this),leave reminders for yourself (e.g., notes, signs) in the places you eat At initial evaluation: 50% for 6 weeks; Currently: 80-90% -Increasing exercise. Park further away, take steps instead of elevators, swimming is great for those with pain/difficulty walking, walking is cheap and easy, get an exercise partner (family, friend,or pet will do), listen to music while you exercise, try different types of exercise to find one you like (e.g., walking, riding bike, going to gym, swimming, exercise videos), get on a regular exercise schedule, do chair exercises for upper body if knees/legs/back are problems At initial evaluation: no intentional exercise other than physical therapy; Currently: still attending physical therapy and does the exercises at home on days not at physical therapy -Eating three meals, and two snacks per day. Set a regular schedule to the extent possible, use liquid meals as a substitute if you don't like heavy food in the morning, talk with boss/coworkers/family about the need for regular eating times, talk with the dieticians about planning snacks throughout the day At initial evaluation: 2 meals 1 snack per day; Currently: same -Determine who will be caregiver after surgery Grandson, Socrates, will be caregiver. She discussed what she will need from him as a caregiver, and hedescribed understanding. OTHER UPDATES: Paige denied any changes to her mental health, substance use, or social support. She noted some changes to her motivation for surgery, such as increased motivation from the initial appointment. Type of Service: Psychological Evaluation Crisis Planning: What I can do if I ever experience a crisis (much worse symptoms, severe distress or thoughts of self-harm): Art/Music, Watching Show/Movie, Relaxation/Breathing exercises/Yoga, and Talking to loved one or friend or trusted person People I can call in the event of a crisis: grandson. Additional resources I can utilize if the previous steps are ineffective (e.g: ED, hotlines): Suicide and Crisis [facility] - [facility], Clinic number: [phone], and [facility] Hotlines for Help Patients Strengths and Facilitating Factors to care: Recognizes need for change, Seeking help, Knowledge of medications, Cooperative, and Able to care for own personal hygiene The assessment and plan for Pagie Hendricks are detailed at the beginning of this report. Luz Carranza PsyD Division of Psychiatry and Behavioral Medicine [facility], 13-35 documented in this encounter Plan of Treatment Upcoming Encounters Date Type Department Care Team (Latest Contact Info) Description 4 1:30 PM EDT Telemedicine Nutrition & Weight Management, [facility] [address] [address] [facility], Surgery Class Provider Mamta [address] [address] 4 2:40 PM EDT Telemedicine Nutrition & Weight Management, [facility] [address] [address] Chanda Bah PA-C [address] [address] 4 1:50 PM EDT Nutrition Services Nutrition & Weight Management, [facility] [address] [address] Laura Hinds RDN [address] [address] 4 10:35 AM EDT Hospital Encounter OR [facility], Operating Room, [facility] - 4th Floor [address] [address] Jan Haynes, DO [address] [place] [address] 4 10:35 AM EDT - 4 11:06 AM EDT Surgery OR [facility], Operating Room, [facility] - 4th Floor [address] [address] Jan Haynes, DO [address] [place] [address] ESOPHAGOGASTRODUODENOSCOPY (EGD), FLEXIBLE, TRANSORAL, DIAGNOSTIC 4 1:30 PM EDT Imaging Cardiac Studies, [facility] [address] [address] 4 10:00 AM EDT Office Visit Sleep Disorders Ctr [facility] [address] [phone] Iwona Yanez CRNP [address] [place] [address] 4 11:40 AM EDT Office Visit Nephrology, [facility] [address] [place] [address] Joaquin Shelley MD [address] [place] [address] 4 11:00 AM EDT Office Visit Nutrition & Weight Management, [facility] [address] [address] Sallie Marrero PA-C [address] [facility] [address] [address] 4 2:00 PM EST Office Visit Cardiology, [facility] [address] [place] [address] Clementine Wang PA-C [address] [place] [address] 4 2:00 PM EST Office Visit Family Practice, [place] [address] [facility] [phone] Kennedy Brooks MD [address] [place], [place] [id number] 5 2:00 PM EST Nurse Only Ancillary Department, [place] [address] [facility] [id number] [place], Nurse Annual Wellness [address] [facility] [place] [id number] Scheduled Procedures Name Priority Associated Diagnoses Date/Ti [...] Additional history exists CKD HGB USE SMARTSET 01349 06/26/202406/26, 06/27/2023, 08/31/2022, Additional history exists CKD PHOS USE SMARTSET 20047 06/26/202406/05, 09/09/2020, 03/24/2020, Additional history exists HbA1c [...] this encounter Medical Devices Implanted Type Area Bereavement Counselor Device Identifier Shelf Expiration Date Model / Serial / Lot Lens Intraoc 20.0 - [id number] - [id number] Implanted:Qty: 1 on 01/02/2020 by Guero Bell MD at OR [facility] Left: Eye BAUSCH & LOMB 07/03/2024 [id number] / [id number] / [id number] Lens Intraoc 20.0 - [id number] - [id number] Implanted:Qty: 1 on 01/16/2020 by Guero Bell MD at OR [facility] Right: Eye BAUSCH & LOMB 08/03/2024 [id number] / [id number] / [id number] documented as of this encounter Visit Diagnoses Diagnosis Major depressive disorder, recurrent episode, mild (HCC)- Primary Major depressive disorder, recurrent episode, mild Class 3 severe obesity due to excess calories with body mass index (BMI) of 45.0 to 49.9 in adult, unspecified whether serious comorbidity present (HCC) Psychological factors affecting medical condition Psychic factors associated with diseases classified elsewhere Morbid obesity due to excess calories (HCC) documented in this encounter Care Teams Jet Wiper Relationship Specialty Start Date End Date Kennedy Brooks MD [address] [facility] [place] [address] PCP - General Family Medicine 04/23/18 documented as of this encounter
--- OUTSIDE RECORDS SUMMARY | 2024-01-17 10:38 | External Medical Summary | Summary of Care ---
Author Name Unknown Organization [facility] Address [address] [place] [address] Phone [phone] Care Team Providers Care Commercial Review Appraiser Name Role Phone Kennedy Brooks MD Primary Care Provider [phone] Reason for Visit * Reason Comments Follow Up * - Authorized Specialty Diagnoses / Procedures Referred By Contac t Referred To Contact Referral ID Status Reason Start Date Expiration Date V isits Requested Visits Authorized [id number] Authorized 07/30/2024 999 999 Encounter Details Date Type Department Care Team (Late st Contact Info) Description 08/31/2023 9:00 AM EDT Therapy Psychology, [facility] [address] [place] [address] Luz Carranza O, [facility] [address] [place] [address] Major depressive disorder, recurrent episode, mild (HCC)*; [...] night at bedtime . Active Saline Nasal [place] 0.65 % Nasal Solution Administer 1 [place] into nostril as needed (nasal dryness, epistaxis). [...] bedtime. 90 Tablet 3 05/04/2023 Active Nystatin 824131 UNIT/GM External Powder (Nystop) Apply topically to [...] mRNA, LNP-s, No Pre serve, 2-Dose Series ([employer]) 01/08/2022,05/06/2021 COVID-19, MRNA-LNP, 23-24, P F, 52 [...] facility as the patient. After connecting through [employer], patient was verified with two unique identifiers. Patient (or authorized legal district representative)was then informed that this was a [...] that I have reviewed their record in [employer] and presented the opportunity for them to ask any questions regarding the visit today. The patient agreed to participate. Provider reviewed elements of Outpatient Services Description including limits of confidentiality, how to contact the department, risks and benefits of treatment and consent for treatment. Start Time: 9:10am (Pt arrived late) Stop Time: 9:40am Total direct [id number] time: 30 minutes BEHAVIORAL MEDICINE ASSESSMENT FOR BARIATRIC SURGERY: LIGHT STATUS REVIEW Kiley Davis [address] [place] [address] 08/31/2023 9:00 AM Paige Hendricks ([id number]) is a 68 year old female who [...] NEEDED) N/A Of note, now connected with [facility] for assistance finding outside OP individual therapy/counseling. [...] ineffective (e.g: ED, hotlines): Suicide and Crisis [facility] - [facility], Clinic number: [phone], and [facility] Hotlines for Help Patients Strengths and Facilitating Factors to care: Recognizes need for change, Seeking help, Knowledge of medications, Cooperative, and Able to care for own personal hygiene The assessment and plan for Paige Hendricks are detailed at the beginning of this report. Luz Carranza PsyD Division of Psychiatry and Behavioral Medicine [facility], 13-35 documented in this encounter Plan of Treatment Upcoming Encounters Date Type Department Care Team (Latest Contact Info) Description 4 1:30 PM EDT Telemedicine Nutrition & Weight Management, [facility] [address] [address] [facility], Surgery Class Provider Mamta [address] [address] 4 2:40 PM EDT Telemedicine Nutrition & Weight Management, [facility] [address] [address] Chanda Bah PA-C [address] [address] 4 1:50 PM EDT Nutrition Services Nutrition & Weight Management, [facility] [address] [address] Laura Hinds RDN [address] [address] 4 10:35 AM EDT Hospital Encounter OR [facility], Operating Room, [facility] - 4th Floor [address] [address] Jan Haynes, DO [address] [place] [address] 4 10:35 AM EDT - 4 11:06 AM EDT Surgery OR [facility], Operating Room, [facility] - 4th Floor [address] [address] Jan Haynes, DO [address] [place] [address] ESOPHAGOGASTRODUODENOSCOPY (EGD), FLEXIBLE, TRANSORAL, DIAGNOSTIC 4 1:30 PM EDT Imaging Cardiac Studies, [facility] [address] [place] [address] 4 10:00 AM EDT Office Visit Sleep Disorders Ctr [facility] [address] [phone] Iwona Yanez CRNP [address] [place] [address] 4 11:40 AM EDT Office Visit Nephrology, [facility] [address] [place] [address] Joaquin Shelley MD [address] [place] [address] 4 11:00 AM EDT Office Visit Nutrition & Weight Management, [facility] [address] [address] Sallie Marrero PA-C 132 [facility] [place] [address] 4 2:00 PM EST Office Visit Cardiology, [facility] [address] [place] [address] Clementine Wang PA-C [address] [place] [address] 4 2:00 PM EST [facility] Visit [facility], [place] [address] [facility] [phone] Kennedy Brooks MD [address] [place], [place] [id number] 5 2:00 PM EST Nurse Only Ancillary Department, [place] [address] [facility] [id number] [place], Nurse Annual Wellness [address] [facility] [place] [id number] Scheduled Procedures Name Priority Associated Diagnoses Date/Ti [...] Additional history exists CKD HGB USE SMARTSET 73887 06/26/202406/26, 06/27/2023, 08/31/2022, Additional history exists CKD PHOS USE SMARTSET 58959 06/26/202406/05, 09/09/2020, 03/24/2020, Additional history exists HbA1c [...] this encounter Medical Devices Implanted Type Area Search Engineer Device Identifier Shelf Expiration Date Model / Serial / Lot Lens Intraoc 20.0 - [id number] - [id number] Implanted:Qty: 1 on 01/02/2020 by Guero Bell MD at OR [facility] Left: Eye BAUSCH & LOMB 07/03/2024 [id number] / [id number] / [id number] Lens Intraoc 20.0 - [id number] - [id number] Implanted:Qty: 1 on 01/16/2020 by Guero Bell MD at OR [facility] Right: Eye BAUSCH & LOMB 08/03/2024 [id number] / [id number] / [id number] documented as of this encounter Visit Diagnoses [...] (HCC) documented in this encounter Care Teams Commercial Review Appraiser Relationship Specialty Start Date End Date Kennedy Brooks MD [address] [place] [facility] [facility] [place] [address] PCP - General Family Medicine 04/23/18 documented as of this encounter
--- OUTSIDE RECORDS SUMMARY | 2024-01-17 10:38 | External Medical Summary | Summary of Care ---
Author Name Unknown Organization [facility] Address [address] [place] [address] Phone [phone] Care Team Providers Care Flame Cutting Machine Operator Name Role Phone Kennedy Brooks MD Primary Care Provider [phone] Reason for Visit * Reason Comments eRx-Medication Refill Encounter Details Date Type Department Care Team (Late st Contact Info) Description 08/26/2023 Refill Sleep Disorders Ctr [facility] [address] [place] [address] Iwona Swanson CRNP [address] [place] [address] Chronic rhinitis Allergies Active Allergy Reactions Criticality Noted Date Comments Paroxetine Hydrochloride Hives 06/07/2007 documented as of this encounter (statuses as of 08/29/2023) Medications Medication Sig Dispensed Refills Start Date [...] night at bedtime . Active Saline Nasal [place] 0.65 % Nasal Solution Administer 1 [place] into nostril as needed (nasal dryness, epistaxis). [...] bedtime. 90 Tablet 3 4 Active Nystatin 709026 UNIT/GM External Powder (Nystop) Apply topically to [...] (Semaglutide-Weight Management)Indicati ons:PAD (peripheral artery disease) ([facility]) Inject 0.25 mg under the [...] THE EVENING 90 Tablet 3 4 Active Levocetirizine Dihydrochloride 5 MG Oral TabletIndications:C hronic rhinitis Take 1 Tablet by mouth every evening. 90 Tablet 3 3 08/29/19 24 Discontinued documented as of this encounter (statuses as of 08/29/2023) Active Problems Problem Noted Date Diagnosed Date [...] as of this encounter (statuses as of 08/29/2023) Resolved Problems Problem Noted Date Diagnosed Date [...] as of this encounter (statuses as of 08/29/2023) Immunizations Name Administration Dates Next Due COVID-19 mRNA, LNP-s, No Pre serve, 2-Dose Series (ParasitX) 01/08/2022,05/06/2021 COVID-19, MRNA-LNP, 23-24, P F, 52 [...] No 04/21/2023 Does the household have a [facility] source of income? (Household - for [...] encounter Miscellaneous Notes * Telephone Encounter - Iwona Swanson CRNP - 08/29/2023 8:36 AM EDT Signed Prescriptions: Disp Refills Levocetirizine Dihydrochloride 5 MG Oral T*90 Tab*3 Sig: TAKE 1 TABLET BY MOUTH EVERY DAY IN THE EVENINGAuthorizing Provider: IWONA SWANSON documented in this encounter Plan of Treatment Upcoming Encounters Date Type Department Care Team (Latest Contact Info) Description 4 9:00 AM EDT Therapy Psychology, [facility] [address] [place] [address] Luz Carranza, [facility] 200 [facility] [place] [address] 4 1:30 PM EDT Telemedicine Nutrition & Weight Management, [facility] [address] [address] [facility], Surgery Class Provider Mamta [address] [place] [address] 4 2:40 PM EDT Telemedicine Nutrition & Weight Management, [facility] [address] [place] [address] Chanda Bah PA-C [address] [place] [address] 4 1:50 PM EDT Nutrition Services Nutrition & Weight Management, [facility] [address] [place] [address] Laura Hinds RDN [address] [place] [address] 4 10:35 AM EDT Hospital Encounter OR [facility], Operating [facility], [facility] - 4th Floor [address] [place] [id number] Jan Haynes DO [address] [place] [address] 4 10:35 AM EDT - 4 11:06 AM EDT Surgery OR GL, Operating Room, [place] - 4th Floor [address] [place] [address] Jan Haynes DO [address] [place] [address] ESOPHAGOGASTRODUODENOSCOPY (EGD), FLEXIBLE, TRANSORAL, DIAGNOSTIC 4 1:30 PM EDT [facility], [facility] [address] [place] [address] 4 10:00 AM EDT Office Visit Sleep Disorders Ctr [facility] [place] [address] [place] [address] Iwona Swanson CRNP [address] [place] [address] 4 11:40 AM EDT Office Visit Nephrology, [facility] [address] [place] [address] Joaquin Shelley MD [address] [place] [address] 4 11:00 AM EDT Office Visit Nutrition & Weight Management, [facility] [address] [place] [address] Sallie Marrero PA-C [address] [place] [address] 4 2:00 PM EST Office Visit Cardiology, [facility] [address] [place] [address] Clementine Wang, JACKIE [address] [place] [address] 4 2:00 PM EST Office Visit [address] [facility] [phone] Kennedy Brooks MD [address] [place] [facility] [place] [address] 2:00 PM EST Nurse Only Ancillary Department, [place] [address] [place] [facility] [place] [address] [place], Nurse Annual Wellness [address] [place] [facility] [place] [address] Scheduled Procedures Name Priority Associated Diagnoses Date/Ti [...] Monitoring 04/21/2024 04/21/2023 CKD HGB USE SMARTSET 69141 06/26/202406/26, 06/27/2023, 08/31/2022, Additional history exists CKD PHOS USE SMARTSET 31803 06/26/202406/05, 09/09/2020, 03/24/2020, Additional history exists HbA1c [...] this encounter Medical Devices Implanted Type Area Clinical Research Physician Device Identifier Shelf Expiration Date Model / Serial / Lot Lens Intraoc 20.0 - [id number] - [id number] Implanted:Qty: 1 on 01/02/2020 by Guero Bell MD at OR [facility] Left: Eye BAUSCH & LOMB 07/03/2024 [id number] / [id number] / [id number] Lens Intraoc 20.0 - [id number] - [id number] Implanted:Qty: 1 on 01/16/2020 by Guero Bell MD at OR [facility] Right: Eye BAUSCH & LOMB 08/03/2024 [id number] / [id number] / [id number] documented as of this encounter Visit Diagnoses Diagnosis Chronic rhinitis Morbid obesity due to excess calories (HCC) documented in this encounter Care Teams Flame Cutting Machine Operator Relationship Specialty Start Date End Date Kennedy Brooks MD [address] [place] [address] PCP - General Family Medicine 04/23/18 documented as of this encounter
--- OUTSIDE RECORDS SUMMARY | 2024-01-17 10:39 | External Medical Summary | Summary of Care ---
Author Name Unknown Organization [facility] Address [address] [place] [address] Phone [phone] Care Team Providers Care Tinsel Machine Operator Name Role Phone Kennedy Brooks MD Primary Care Provider [phone] Reason for Visit * Reason Onset Date Comments Advice 07/20/2023 Med Request 07/20/2023 Encounter Details Date Type Department Care Team (Late st Contact Info) Description 07/20/2023 Telephone [facility] [address] [place] [address] Kennedy Brooks MD [address] [place] [address] Advice; Med Request Allergies Active Allergy Reactions Criticality Noted Date Comments Paroxetine Hydrochloride Hives 06/07/2007 documented as of this encounter (statuses as of 08/04/2023) Medications Medication Sig Dispensed Refills Start Date [...] night at bedtime . Active Saline Nasal [place] 0.65 % Nasal Solution Administer 1 [place] into nostril as needed (nasal dryness, epistaxis). [...] bedtime. Active Levocetirizine Dihydrochloride 5 MG Oral TabletIndications:C [...] A MEAL.. 180 Capsule 1 3 Active Atorvastatin Calcium 40 MG Oral Tablet (Lipitor)Indication s:Other hyperlipidemia,Dysl ipidemia, goal LDL below 70 TAKE ONE TABLET BY MOUTH EVERY EVENING 90 Tablet 3 3 Active Venlafaxine HCl ER 37.5 MG Oral Tablet Extended Release 24 Hour Take 1 Tablet by mouth in the morning. Active Losartan Potassium 25 MG Oral Tablet (Cozaar)Indications :HTN, goal below 140/90 TAKE ONE TABLET BY MOUTH EVERY DAY 90 Tablet 2 4 Active QUEtiapine Fumarate 200 MG Oral Tablet (SEROquel) Take 1 Tablet by mouth at bedtime. 90 Tablet 3 4 Active Nystatin 439201 UNIT/GM External Powder (Nystop) Apply topically to [...] mouth in the morning and 1 Capsule at noon and 1 Capsule before bedtime. 4 Active oxygen IN GAS 2 LPM bled through auto CPAP 7-12 cm H2O 1 Each 4 Active Wegovy 0.25 MG/0.5ML Subcutaneous Solution Auto-injector (Semaglutide-Weight Management)Indicati ons:PAD (peripheral artery disease) ([facility]) Inject 0.25 mg under the skin once a week. 2 mL 5 4 Active Wegovy 0.5 MG/0.5ML Subcutaneous Solution Auto-injector (Semaglutide-Weight Management) Inject 0.5 mg under the skin once a week. 6 mL 4 08/04/19 24 Discontinued documented as of this encounter (statuses as of 08/04/2023) Active Problems Problem Noted Date Diagnosed Date Prediabetes 07/17/2023 Overview: Per Prediabetes protocol Body [...] as of this encounter (statuses as of 08/04/2023) Resolved Problems Problem Noted Date Diagnosed Date [...] as of this encounter (statuses as of 08/04/2023) Immunizations Name Administration Dates Next Due COVID-19 [...] money to get more. Never true 04/21/2023 Sex and Gender Information Value Date Recorded Sex Assigned at Female 10/29/2018 9:59 AM EDT Gender Identity Female 10/29/2018 9:59 AM EDT Sexual Orientation Straight 10/29/2018 9: 59 AM EDT Job Start Date Occupation Industry Not on file Not on file Not on file documented as of this encounter Miscellaneous Notes * Addendum Note - Sallie Mills PA-C - 08/04/2023 10:58 AM EDTAddended by: SALLIE MILLS on: 08/04/2023 10:58 AM Modules accepted: Orders * Telephone Encounter - Sallie Mills PA-C - 08/04/2023 10:56 AM EDT I will send in 0.25mg wegovy * Addendum Note - Anastacio Brown LPN - 08/04/2023 8:59 AM EDTAddended by: ANASTACIO BROWN on: 08/04/2023 08:59 AM Modules accepted: Orders * Telephone Encounter - Anastacio Brown LPN - 08/04/2023 8:28 AM EDT Spoke with pt. She Stated that [facility] was having problems filling her prescription and [facility] script pended. * Telephone Encounter - Alanna Taveras OSA - 08/03/2023 12:06 PM EDT See below pt was seen for the bme on 06/28/23 and has upcoming appt with travis 09/19/23. * Telephone Encounter - Tessie Chew OSA - 07/20/2023 3:15 PM EDT Patient calling in stating that [facility] will not fill the Wegovy until patient sees her PCP. [facility] [place] [facility] her [facility]. documented in this encounter Plan of Treatment Upcoming Encounters Date Type Department Care Team (Latest Contact Info) Description 4 9:30 AM EDT Office Visit Cardiology, [facility] 132 [place] [address] Clementine Wang PA-C 132 [place] [address] 4 1:45 PM EDT Office Visit Orthopaedics [facility] 132 [place] [address] Hans Cruz DO 132 [facility] [place] [address] 4 8:30 AM EDT Home Visit [facility] 132 [place] [address] Kim Piper, RN 132 [place] [address] 4 2:20 PM EDT Office Visit Orthopaedics [facility] [address] [place] [phone] Jayce Curtis MD [address] [place] [address] 4 2:20 PM EDT Office Visit [facility] [address] [place] [address] Kennedy Brooks MD [address] [place] [address] 4 1:00 PM EDT Imaging Radiology, [facility] [address] [facility] [place] [address] 4 9:00 AM EDT Therapy Psychology, [facility] 200 [facility] [place] [address] Luz Carranza, [facility] [address] [facility] [place] [address] 4 1:30 PM EDT Telemedicine Nutrition & Weight Management, [facility] [address] [place] [address] [facility], Surgery Class Provider [facility] [address] [place] [address] 4 2:40 PM EDT Telemedicine Nutrition & Weight Management, [facility] [address] [place] [address] Chanda Bah PA-C [address] [place] [address] 4 1:50 PM EDT Nutrition Services Nutrition & Weight Management, [facility] [address] [place] [address] Laura Hinds RDN [address] [place] [address] 4 12:04 PM EDT Hospital Encounter OR GL, Operating Room, [facility] - 4th Floor [address] [place] [address] Jan Haynes DO [address] [place] [address] 4 12:04 PM EDT - 4 12:35 PM EDT Surgery OR [facility], Operating Room, [facility] - 4th Floor [address] [place] [address] Jan Haynes DO [facility] [place] [address] ESOPHAGOGASTRODUODENOSCOPY (EGD), FLEXIBLE, TRANSORAL, DIAGNOSTIC 4 10:00 AM EDT Office Visit [facility] 132 [facility] [place] [phone] Iwona Yanez CRNP 132 [facility] [place] [address] 4 11:40 AM EDT Office Visit Nephrology, [facility] [address] [facility] [place] [address] Joaquin Shelley MD [address] [facility] [place] [address] 4 11:00 AM EDT Office Visit Nutrition & Weight Management, [facility] 132 [facility] [place] [address] Sallie Mills PA-C 132 [facility] [place] [address] 5 2:00 PM EST Nurse Only Ancillary Department, [address] [address] [place], Nurse Annual Wellness [address] [place] [address] Scheduled Procedures Name Priority Associated Diagnoses Date/Ti me ESOPHAGOGASTRODUODENOSCOPY ( EGD), FLEXIBLE, TRANSORAL, DIAGNOSTIC Morbid obesity due to excess calories (HCC) 10/11/2023 12:04 PM EDT COLONOSCOPY FLEXIBLE PROXIMA L DIAGNOSTIC Recall [...] Additional history exists CKD HGB USE SMARTSET 55284 06/26/202406/26, 06/27/2023, 08/31/2022, Additional history exists CKD PHOS USE SMARTSET 84747 06/26/202406/05, 09/09/2020, 03/24/2020, Additional history exists HbA1c [...] this encounter Medical Devices Implanted Type Area Boiler Coverer Device Identifier Shelf Expiration Date Model / Serial / Lot Lens Intraoc 20.0 - [id number] - [id number] Implanted:Qty: 1 on 01/02/2020 by Guero Bell MD at OR [facility] Left: Eye BAUSCH & LOMB 07/03/2024 [id number] / [id number] / [id number] Lens Intraoc 20.0 - [id number] - [id number] Implanted:Qty: 1 on 01/16/2020 by Guero Bell MD at OR [facility] Right: Eye BAUSCH & LOMB 08/03/2024 [id number] / [id number] / [id number] documented as of this encounter Visit Diagnoses Diagnosis PAD (peripheral artery disease) (HCC)- Primary Peripheral vascular disease, unspecified Morbid obesity due to excess calories (HCC) documented in this encounter Care Teams Tinsel Machine Operator Relationship Specialty Start Date End Date Kennedy Brooks MD [address] [place] [address] PCP - General Family Medicine 04/23/18 documented as of this encounter
--- OUTSIDE RECORDS SUMMARY | 2024-01-17 10:39 | External Medical Summary | Summary of Care ---
Author Name Unknown Organization [facility] Address [address] [place] [address] Phone [phone] Care Team Providers Care Photoradio Operator Name Role Phone Kennedy Brooks MD Primary Care Provider [phone] Reason for Visit * Reason Onset Date Comments Advice 07/20/2023 Med Request 07/20/2023 Encounter Details Date Type Department Care Team (Late st Contact Info) Description 07/20/[address] [facility] [address] [place] [address] Kennedy Brooks MD [address] [place] [address] Advice; Med Request Allergies Active [...] night at bedtime . Active Saline Nasal [place] 0.65 % Nasal Solution Administer 1 [place] into nostril as needed (nasal dryness, epistaxis). [...] EVERY EVENING 90 Tablet 3 03/01/2023 Active Venlafaxine HCl ER 37.5 MG Oral [...] bedtime. 90 Tablet 3 05/04/2023 Active Nystatin 763380 UNIT/GM External Powder (Nystop) Apply topically to [...] at noon and 1 Capsule before bedtime. 06/08/2023 Active Wegovy 0.5 MG/0.5ML Subcutaneous Solution Auto-injector (Semaglutide-Weight Management) Inject 0.5 mg under the skin once a week. 6 mL 06/28/2023 Active oxygen IN GAS 2 LPM bled through auto CPAP 7-12 cm H2O 1 Each 07/06/2023 Active documented as of this encounter (statuses [...] encounter Miscellaneous Notes * Addendum Note - Anastacio Brown LPN [...] her PCP. Can we send it to [facility] pharmacy in [place] for her instead. documented in this encounter Plan of Treatment Upcoming Encounters Date Type Department Care Team (Latest Contact Info) Description 4 9:30 AM EDT Office Visit Cardiology, [facility] [address] [place] [address] Clementine Wang PA-C [address] [place] [address] 4 1:45 PM EDT Office Visit Orthopaedics [facility] [address] [place] [address] Hans Cruz DO [address] [place] [address] 4 8:30 AM EDT Home Visit [facility], [facility] [address] [place] [address] iKm Piper, RN [address] [place] [address] 4 2:20 PM EDT Office Visit Orthopaedics [facility] [address] [place] [address] Jayce Curtis MD [address] [place] [address] 4 2:20 PM EDT Office Visit Family [facility] [address] [place] [phone] Kennedy Brooks MD [address] [place] [address] 4 1:00 PM EDT Imaging Radiology, [address] [place] [address] 4 9:00 AM EDT Therapy Psychology, [facility] 200 [facility] [place] [address] Luz Carranza, Michelle 200 [facility] [place] [address] 4 1:30 PM EDT Telemedicine Nutrition & Weight Management, [facility] 132 [facility] [place] [address] [facility], Surgery Class Provider [facility] [address] [place] [address] 4 2:40 PM EDT Telemedicine Nutrition & Weight Management, [facility] [address] [place] [address] Chanda Bah PA-C [address] [place] [address] 4 1:50 PM EDT Nutrition Services Nutrition & Weight Management, [facility] [address] [place] [address] Laura Hinds RDN [address] [place] [address] 4 12:04 PM EDT Hospital Encounter OR [facility], Operating Room, [facility] - 4th Floor 400 [facility] [place] [address] Jan Haynes, DO [address] [place] [address] 4 12:04 PM EDT - 4 12:35 PM EDT Surgery OR [facility], Operating Room, [facility] - 4th Floor [address] [facility] [place] [address] Jan Haynes, DO [address] [place] [address] ESOPHAGOGASTRODUODENOSCOPY (EGD), FLEXIBLE, TRANSORAL, DIAGNOSTIC 4 10:00 AM EDT Office Visit Sleep Disorders Ctr [facility] [address] [place] [phone] Iwona Yanez CRNP [address] [place] [address] 4 11:40 AM EDT Office Visit Nephrology, [facility] [address] [place] [address] Joaquin Shelley MD [address] [place] [address] 4 11:00 AM EDT Office Visit Nutrition & Weight Management, [facility] [address] [place] [address] Sallie Marrero PA-C [address] [place] [address] 2:00 PM EST Nurse Only Ancillary Department, [place] [address] [facility] [address] [place], Nurse Annual Wellness [address] [facility] [place] [address] Scheduled Procedures Name Priority Associated Diagnoses Date/Ti [...] Additional history exists CKD HGB USE SMARTSET 41188 06/26/202406/26, 06/27/2023, 08/31/2022, Additional history exists CKD PHOS USE SMARTSET 28636 06/26/202406/05, 09/09/2020, 03/24/2020, Additional history exists HbA1c [...] this encounter Medical Devices Implanted Type Area Roofer Applicator Device Identifier Shelf Expiration Date Model / Serial / Lot Lens Intraoc 20.0 - [id number] - [id number] Implanted:Qty: 1 on 01/02/2020 by Guero Bell MD at OR [facility] Left: Eye BAUSCH & LOMB 07/03/2024 [id number] / [id number] / [id number] Lens Intraoc 20.0 - [id number] - [id number] Implanted:Qty: 1 on 01/16/2020 by Guero Bell MD at OR [facility] Right: Eye BAUSCH & LOMB 08/03/2024 [id number] / [id number] / [id number] documented as of this encounter Care Teams Photoradio Operator Relationship Specialty Start Date End Date Kennedy Brooks MD [address] [place] [address] PCP - General Family Medicine 04/23/18 documented as of this encounter
--- OUTSIDE RECORDS SUMMARY | 2024-01-17 10:39 | External Medical Summary | Summary of Care ---
Author Name Unknown Organization [facility] Address [address] [place] [address] Phone [phone] Care Team Providers Care Perforating Machine Operator Name Role Phone Kennedy Brooks MD Primary Care Provider [phone] Reason for Visit * Reason Onset Date Comments Advice 07/20/2023 Med Request 07/20/2023 Encounter Details Date Type Department Care Team (Late st Contact Info) Description 07/20/2023 Telephone [facility] [address] [place] [address] Kennedy Brooks MD [address] [place] [address] Advice; Med Request Allergies Active [...] night at bedtime . Active Saline Nasal [place] 0.65 % Nasal Solution Administer 1 [place] into nostril as needed (nasal dryness, epistaxis). [...] bedtime. 90 Tablet 3 05/04/2023 Active Nystatin 749158 UNIT/GM External Powder (Nystop) Apply topically to [...] - 08/04/2023 8:28 AM EDT Spoke with pt, script pended. * Telephone Encounter - Alanna Taveras OSA - 08/03/2023 12:06 PM EDT See below pt was seen for the bme on 06/28/23 and has upcoming appt with travis 09/19/23. * Telephone Encounter - Tessie Chew OSA - 07/20/2023 3:15 PM EDT Patient calling in stating that [facility] will not fill the Wegovy until patient sees her PCP. Can we send it to [facility] pharmacy in [place] for her instead. documented in this encounter Plan of Treatment Upcoming Encounters Date Type Department Care Team (Latest Contact Info) Description 4 9:30 AM EDT Office Visit Cardiology, [facility] [address] [address] Clementine Wang PA-C [address] [place] [address] 4 1:45 PM EDT Office Visit Orthopaedics [facility] [address] [address] Hans Cruz DO [address] [address] 4 8:30 AM EDT Home Visit [facility] at Home, [facility] [address] [place] [address] Kim Piper RN 132 [facility] [place] [address] 4 2:20 PM EDT Office Visit Orthopaedics [facility] [address] [place] [phone] Jayce Curtis MD [address] [place] [address] 4 2:20 PM EDT Office Visit [facility] [address] [place] [phone] Kennedy Brooks MD [address] [place] [address] 4 1:00 PM EDT Imaging Radiology, [address] [place] [address] 4 9:00 AM EDT Therapy Psychology, [facility] 200 [facility] [place] [address] Luz Carranza, [facility] 200 [facility] [place] [address] 4 1:30 PM EDT Telemedicine Nutrition & Weight Management, [facility] 132 [facility] [place] [address] [facility], Surgery Class Provider [facility] [place] [address] 4 2:40 PM EDT Telemedicine Nutrition & Weight Management, [facility] [address] [place] [address] Chanda Bah PA-C [address] [place] [address] 4 1:50 PM EDT Nutrition Services Nutrition & Weight Management, [facility] [address] [place] [address] Laura Hinds RDN [address] [address] 4 12:04 PM EDT Hospital Encounter OR GL, Operating Room, [facility] - 4th Floor [facility] [address] Jan Haynes, DO [address] [address] 4 12:04 PM EDT - 4 12:35 PM EDT Surgery OR [facility], Operating Room, [facility] - 4th Floor 400 [facility] [place] [address] Jan Haynes, DO [address] [place] [address] ESOPHAGOGASTRODUODENOSCOPY (EGD), FLEXIBLE, TRANSORAL, DIAGNOSTIC 4 10:00 AM EDT Office Visit Sleep Disorders Ctr [facility] [address] [phone] Iwona Yanez CRNP [address] [place] [address] 4 11:40 AM EDT Office Visit Nephrology, Kiley Gavin [address] [place] [address] Joaquin Shelley MD [address] [place] [address] [address] 4 11:00 AM EDT Office Visit Nutrition & Weight Management, [facility] [address] [place] [address] Sallie Marrero PA-C [address] [place] [address] 2:00 PM EST Nurse Only Ancillary Department, [place] [address] [facility] [address] [place], Nurse Annual Wellness [address] [facility] [address] Scheduled Procedures Name Priority Associated Diagnoses Date/Ti [...] Additional history exists CKD HGB USE SMARTSET 85772 06/26/202406/26, 06/27/2023, 08/31/2022, Additional history exists CKD PHOS USE SMARTSET 93945 06/26/202406/05, 09/09/2020, 03/24/2020, Additional history exists HbA1c [...] this encounter Medical Devices Implanted Type Area Payroll Benefits Administrator Device Identifier Shelf Expiration Date Model / Serial / Lot Lens Intraoc 20.0 - [id number] - [id number] Implanted:Qty: 1 on 01/02/2020 by Guero Bell MD at OR [facility] Left: Eye BAUSCH & LOMB 07/03/2024 [id number] / [id number] / [id number] Lens Intraoc 20.0 - [id number] - [id number] Implanted:Qty: 1 on 01/16/2020 by Guero Bell MD at OR [facility] Right: Eye BAUSCH & LOMB 08/03/2024 [id number] / [id number] / [id number] documented as of this encounter Care Teams Perforating Machine Operator Relationship Specialty Start Date End Date Kennedy Brooks MD [address] [place] [address] PCP - General Family Medicine 04/23/18 documented as of this encounter
--- OUTSIDE RECORDS SUMMARY | 2024-01-17 10:39 | External Medical Summary | Summary of Care ---
Author Name Unknown Organization [facility] Address [address] [place] [address] Phone [phone] Care Team Providers Care Rn First Assist Name Role Phone Kennedy Brooks MD Primary Care Provider [phone] Encounter Details Date Type Department Care Team (Late st Contact Info) Description 08/17/2023 Referral Triage Care Coordination and Integration [address] [place], [place] [phone] Funmi Garcia, AMIRA [address] [place], [place] [phone] Allergies Active Allergy Reactions Criticality Noted Date Comments Paroxetine Hydrochloride Hives 06/07/2007 documented as of this encounter (statuses as of 08/17/2023) Medications Medication Sig Dispensed Refills Start Date [...] night at bedtime . Active Saline Nasal [place] 0.65 % Nasal Solution Administer 1 [place] into nostril as needed (nasal dryness, epistaxis). [...] bedtime. 90 Tablet 3 05/04/2023 Active Nystatin 430851 UNIT/GM External Powder (Nystop) Apply topically to [...] 7-12 cm H2O 1 Each 07/06/2023 Active Wegovy 0.25 MG/0.5ML Subcutaneous Solution Auto-injector (Semaglutide-Weight Management)Indication s:PAD (peripheral artery disease) ([facility]) Inject 0.25 mg under the skin once a week. 2 mL 5 08/04/2023 Active Multi Vitamin Daily Oral Tablet Take by mouth daily. Active Citracal Petites/Vitamin D 200-6.25 MG-MCG Oral Tablet (Calcium Citrate-Vitamin D) Take 2 Tablets by mouth in the morning. Active documented as of this encounter (statuses as of 08/17/2023) Active Problems Problem Noted Date Diagnosed Date [...] as of this encounter (statuses as of 08/17/2023) Resolved Problems Problem Noted Date Diagnosed Date [...] as of this encounter (statuses as of 08/17/2023) Immunizations Name Administration Dates Next Due COVID-19 [...] Description 4 2:20 PM EDT Office Visit Orthopaedics [facility] [address] [place] [phone] Jayce Curtis MD [address] [facility] [place] [address] 4 2:20 PM EDT Office Visit [facility] [address] [facility] [place], [place] [phone] Kennedy Brooks MD [address] [facility] [place] [address] 4 1:00 PM EDT Imaging Radiology, [address] [place] [address] 4 9:00 AM EDT Therapy Psychology, [facility] 200 [facility] [place] [address] Luz Carranza, [facility] 200 [facility] [place] [address] 4 1:30 PM EDT Telemedicine Nutrition & Weight Management, [facility] [address] [place] [address] [facility], Surgery Class Provider [facility] [address] [place] [address] 4 2:40 PM EDT Telemedicine Nutrition & Weight Management, [facility] [address] [address] Chanda Bah PA-C [address] [place] [address] 4 1:50 PM EDT Nutrition Services Nutrition & Weight Management, [facility] [address] [place] [address] Laura Hinds RDN [address] [place] [address] 4 10:35 AM EDT Hospital Encounter OR [facility], Operating Room, [facility] - 4th Floor [address] [place] [address] [place] [address] Jan Haynes, DO [address] [place] [address] 4 10:35 AM EDT - 4 11:06 AM EDT Surgery OR [facility], Operating Room, [facility] - 4th Floor [address] [place] [address] Jan Haynes, DO [address] [place] [address] ESOPHAGOGASTRODUODENOSCOPY (EGD), FLEXIBLE, TRANSORAL, DIAGNOSTIC 4 1:30 PM EDT Imaging Cardiac Studies, [facility] [address] [place] [address] 4 10:00 AM EDT Office Visit Sleep Disorders Ctr [facility] [place] [address] Iwona Yanez CRNP [address] [place] [address] 4 11:40 AM EDT Office Visit Nephrology, [facility] [address] [place] [address] Joaquin Shelley MD 200 [facility] [address] [place] [address] 4 11:00 AM EDT Office Visit Nutrition & Weight Management, [facility] [address] [address] Sallie Marrero PA-C [address] [place] [address] 4 2:00 PM EST Office Visit Cardiology, [facility] [address] [place] [address] Clementine Wang, JACKIE [address] [place] [address] 5 2:00 PM EST Nurse Only Ancillary Department, [place] [address] [facility] [address] [place], Nurse Annual Wellness [address] [facility] [address] Scheduled Procedures Name Priority Associated Diagnoses Date/Ti [...] Monitoring 04/21/2024 04/21/2023 CKD HGB USE SMARTSET 57223 06/26/202406/26, 06/27/2023, 08/31/2022, Additional history exists CKD PHOS USE SMARTSET 55947 06/26/202406/05, 09/09/2020, 03/24/2020, Additional history exists HbA1c [...] this encounter Medical Devices Implanted Type Area Subsurface Augmentee Operator Device Identifier Shelf Expiration Date Model / Serial / Lot Lens Intraoc 20.0 - [id number] - [id number] Implanted:Qty: 1 on 01/02/2020 by Guero Bell MD at OR [facility] Left: Eye BAUSCH & LOMB 07/03/2024 [id number] / [id number] / [id number] Lens Intraoc 20.0 - [id number] - [id number] Implanted:Qty: 1 on 01/16/2020 by Guero Bell MD at OR [facility] Right: Eye BAUSCH & LOMB 08/03/2024 [id number] / [id number] / [id number] documented as of this encounter Care Teams Rn First Assist Relationship Specialty Start Date End Date Kennedy Brooks MD [address] [place] [address] PCP - General Family Medicine 04/23/18 documented as of this encounter
--- OUTSIDE RECORDS SUMMARY | 2024-01-17 10:39 | External Medical Summary | Summary of Care ---
Author Name Unknown Organization [facility] Address [address] [place] [address] Phone [phone] Care Team Providers Care Portfolio Specialist Name Role Phone Kennedy Brooks MD Primary Care Provider [phone] Reason for Visit * Reason Comments NEW PATIENT L knee pain * Evaluate & Treat - Unlimited Visits (Within 30 days (routine)) - Authorized Specialty Diagnoses / Procedures Referred By Contac t Referred To Contact Orthopaedic Surgery / Orthopedics Diagnoses Primary osteoarthritis of left knee Hans Cruz, DO [address] [place] [address] Referral ID Status Reason Start Date Expiration Date Visits Requested Visits Authorized [id number] Authorized Specialty Services Required 07/18/[phone] Encounter Details Date Type Department Care Team (Late st Contact Info) Description 08/21/2023 2:20 PM EDT Office Visit Orthopaedics [facility] [address] [place] [address] Jayce Curtis MD [address] [place] [address] Chronic pain of left knee* Allergies Active Allergy Reactions Criticality Noted Date Comments Paroxetine Hydrochloride Hives 06/07/2007 documented as of this encounter (statuses as of 08/21/2023) Medications Medication Sig Dispensed Refills Start Date [...] night at bedtime . Active Saline Nasal [place] 0.65 % Nasal Solution Administer 1 [place] into nostril as needed (nasal dryness, epistaxis). [...] bedtime. 90 Tablet 3 05/04/2023 Active Nystatin 570898 UNIT/GM External Powder (Nystop) Apply topically to [...] Auto-injector (Semaglutide-Weight Management)Indication s:PAD (peripheral artery disease) ([facility]) Inject 0.25 mg under the skin once a week. 2 mL 5 08/04/2023 Active Multi Vitamin Daily Oral Tablet Take by mouth daily. Active Citracal Petites/Vitamin D 200-6.25 MG-MCG Oral Tablet (Calcium Citrate-Vitamin D) Take 2 Tablets by mouth in the morning. Active documented as of this encounter (statuses as of 08/21/2023) Active Problems Problem Noted Date Diagnosed Date [...] as of this encounter (statuses as of 08/21/2023) Resolved Problems Problem Noted Date Diagnosed Date [...] as of this encounter (statuses as of 08/21/2023) Immunizations Name Administration Dates Next Due COVID-19 mRNA, LNP-s, No Pre serve, 2-Dose Series ([email or web address]) 01/08/2022,05/06/2021 COVID-19, MRNA-LNP, 23-24, P F, 50 [...] Sign Reading Time Taken Comments Blood Pressure 108/75 08/21/2023 2:30 PM EDT Pulse - - Temperature - - Respiratory Rate - - Oxygen Saturation - - Inhaled Oxygen Concentration - - Weight 129.1 kg (284 lb 11.2 oz) 08/21/2023 2:30 PM EDT Height 161.5 cm (5' 3.58") 08/21/2023 2:30 PM ED T Body Mass Index 49.51 08/21/2023 2:30 PM EDT documented in this encounter Progress Notes * Jayce Curtis MD - 08/21/2023 3:07 PM EDT Moderate knee djd left knee I interpreted xrays from today and reviewed xrays from today and medications with the patient Bmi 49.5 Sitting pain left medial knee 10/13 Back problems back injections 01/26 No numbness tingling or falling asleep in the leg foot or ankle If rides in the car for an hour has to straighten the knee out on the left Smoking none Etoh none Dental 1.5 years ago and has dentures No infections no antibiotics Pain between shoulders and low back pain Lasegue with pain sciatic nerve and she does get sciatic every once in a while but most of the painis on the insdie of the left knee Walks with minimal limp She says less pain with flip flops than with sneakers Rom 5-120 Stable bilat Tender diffusely and nonfocally in both knees and both pes bursae Dp positive Ta ehl and gastroc 5/5 Creatinine 1.6 Cbc ok Lose 70 pounds and tylenol 2 es q8 Will lose 150 pounds with Marsha jessica Dr and then will return Jayce Curtis MD documented in this encounter Plan of Treatment Upcoming Encounters Date Type Department Care Team (Latest Contact Info) Description 2:20 PM EDT Office Visit [place] [address] [address] [facility] [place] [phone] Kennedy Brooks MD [address] [facility] [place] [address] 4 1:00 PM EDT Imaging Radiology, [place] [address] [facility] [address] 4 9:00 AM EDT Therapy Psychology, [facility] 200 [facility] [place] [address] Luz Carranza O, Ps 200 [facility] [place] [address] 4 1:30 PM EDT Telemedicine Nutrition & Weight Management, [facility] [address] [address] [facility], Surgery Class Provider [facility] [address] [place] [address] 4 2:40 PM EDT Telemedicine Nutrition & Weight Management, [facility] [address] [address] Chanda Bah PA-C [address] [place] [address] 4 1:50 PM EDT Nutrition Services Nutrition & Weight Management, [facility] [address] [place] [address] Laura Hinds RDN [address] [place] [address] 4 10:35 AM EDT Hospital Encounter OR [facility], [facility], [facility] - 4th Floor [address] [place] [address] [place] [id number] Jan Haynes DO [address] [place] [address] 4 10:35 AM EDT - 4 11:06 AM EDT Surgery OR GL, Operating Room, [facility] - 4th Floor [address] [place] [address] aJn Haynes, [address] [place] [address] ESOPHAGOGASTRODUODENOSCOPY (EGD), FLEXIBLE, TRANSORAL, DIAGNOSTIC 4 1:30 PM EDT Imaging Cardiac Studies, [facility] [address] [place] [address] 4 10:00 AM EDT Office Visit Sleep Disorders Ctr [facility] [address] [place] [phone] Iwona Yanez CRNP [address] [place] [address] 4 11:40 AM EDT Office Visit Nephrology, [facility] 200 [facility] [place] [address] Joaquin Shelley MD 200 [facility] [place] [address] 4 11:00 AM EDT Office Visit Nutrition & Weight Management, [facility] [address] [place] [address] Sallie Marrero PA-C [address] [place] [address] 4 2:00 PM EST Office Visit Cardiology, [facility] [address] [place] [address] Clementine Wang PA-C [address] [place] [address] 2:00 PM EST Nurse Only Ancillary Department, [place] [address] [place] [address] [place], Nurse Annual Wellness [address] [facility] [place] [address] Pending Results Name Type Priority Associated Diagnoses Date /Time XR KNEE 1-2 VIEWS Medical Imaging Routine Chronic pain of left knee 08/21/2023 2:45 PM EDT Scheduled Procedures Name Priority Associated [...] Monitoring 04/21/2024 04/21/2023 CKD HGB USE SMARTSET 61322 06/26/202406/26, 06/27/2023, 08/31/2022, Additional history exists CKD PHOS USE SMARTSET 85495 06/26/202406/05, 09/09/2020, 03/24/2020, Additional history exists HbA1c [...] this encounter Medical Devices Implanted Type Area Senior Administrative Assistant Device Identifier Shelf Expiration Date Model / Serial / Lot Lens Intraoc 20.0 - [id number] - [id number] Implanted:Qty: 1 on 01/02/2020 by Guero Bell MD at OR [facility] Left: Eye BAUSCH & LOMB 07/03/2024 [id number] / [id number] / [id number] Lens Intraoc 20.0 - [id number] - [id number] Implanted:Qty: 1 on 01/16/2020 by Guero Bell MD at OR [facility] Right: Eye BAUSCH & LOMB 08/03/2024 [id number] / [id number] / [id number] documented as of this encounter Visit Diagnoses Diagnosis Chronic pain of left knee- Primary Pain in joint, lower leg Morbid obesity due to excess calories (HCC) documented in this encounter Care Teams Portfolio Specialist Relationship Specialty Start Date End Date Kennedy Brooks MD [address] [place] [address] PCP - General Family Medicine 04/23/18 documented as of this encounter
--- OUTSIDE RECORDS SUMMARY | 2024-01-17 10:39 | External Medical Summary | Summary of Care ---
Author Name Unknown Organization [facility] Address [address] [place] [address] Phone [phone] Care Team Providers Care Rn Diabetes Educator Name Role Phone Kennedy Brooks MD Primary Care Provider [phone] Reason for Referral * Precert (Within 10 days (routine)) - Authorized Specialty Diagnoses / Procedures Referred By Contac t Referred To Contact Cardiac Studies Diagnoses Pre-operative cardiovascular examination Dyslipidemia, goal LDL below 70 Aortic root enlargement (HCC) Chronic diastolic heart failure (HCC) Dyspnea on exertion Nonspecific abnormal electrocardiogram (ECG) (EKG) Procedures ECHO, STRESS (DOBUTAMINE) W/ PHYSICIAN Clementine Wang PA-C [address] [place] [address] Referral ID Status Reason Start Date Expiration Date V isits Requested Visits Authorized [id number] Authorized Precert 08/08/2023 999 999 Reason for Visit * Reason Comments Follow Up Pre-op Clearance Risk stratification for bariatric surgery * Evaluate & Treat - Unlimited Visits (Within 10 days (routine)) - Authorized Specialty Diagnoses / Procedures Referred By Contact Referred To Contact Cardiovascular Medicine / Cardiology Diagnoses Morbid obesity due to excess calories (HCC) HTN, goal below 140/90 Sallie Marrero PA-C [address] [place] [address] Referral ID Status Reason Start Date Expiration Date Visits Requested Visits Authorized [id number] Authorized Specialty Services Required 06/28/2023 999 999 Encounter Details Date Type Department Care Team (Latest Contact Info) Description 08/08/2023 9:30 AM EDT Office Visit Cardiology, [facility] [address] [place] [address] Clementine Wang PA-C [address] [place] [address] Pre-operative cardiovascular examination*; Dyslipidemia, goal LDL below 70; Aortic root enlargement (HCC); Chronic diastolic heart failure (HCC); Dyspnea on exertion; Nonspecific abnormal electrocardiogram (ECG) (EKG) Allergies Active Allergy Reactions Criticality Noted Date Comments Paroxetine Hydrochloride Hives 06/07/2007 documented as of this encounter (statuses as of 08/22/2023) Medications Medication Sig Dispensed Refills Start Date [...] night at bedtime . Active Saline Nasal [place] 0.65 % Nasal Solution Administer 1 [place] into nostril as needed (nasal dryness, epistaxis). [...] EVERY EVENING 90 Tablet 3 3 Active Losartan Potassium 25 MG Oral Tablet (Cozaar)Indications: HTN, goal below 140/90 TAKE ONE TABLET BY MOUTH EVERY DAY 90 Tablet 2 4 Active QUEtiapine Fumarate 200 MG Oral Tablet (SEROquel) Take 1 Tablet by mouth at bedtime. 90 Tablet 3 4 Active Nystatin 634370 UNIT/GM External Powder (Nystop) Apply topically to [...] Auto-injector (Semaglutide-Weight Management)Indicatio ns:PAD (peripheral artery disease) ([facility]) Inject 0.25 mg under the skin once a week. 2 mL 5 4 Active Multi Vitamin Daily Oral Tablet Take by mouth daily. Active Venlafaxine HCl ER 37.5 MG Oral Tablet Extended Release 24 Hour Take 1 Tablet by mouth in the morning. 08/11/19 24 Discontinu ed(Medicat ion List Clean Up) Citrucel 500 MG Oral Tablet (Methylcellulose (Laxative)) Take 1 Tablet by mouth in the morning. 08/11/19 24 Discontinu ed(Medicat ion List Clean Up) documented as of this encounter (statuses as of 08/22/2023) Active Problems Problem Noted Date Diagnosed Date [...] as of this encounter (statuses as of 08/22/2023) Resolved Problems Problem Noted Date Diagnosed Date [...] as of this encounter (statuses as of 08/22/2023) Immunizations Name Administration Dates Next Due COVID-19 mRNA, LNP-s, No Pre serve, 2-Dose Series (Nacuii) 01/08/2022,05/06/2021 COVID-19, MRNA-LNP, 23-24, P F, 52 [...] 04/21/2023 Does the household have a re gular [...] Sign Reading Time Taken Comments Blood Pressure 112/78 08/08/2023 9:33 AM EDT Pulse 96 08/08/2023 9:33 AM EDT Temperature - - Respiratory Rate 12 08/08/2023 9:33 AM EDT Oxygen Saturation - - Inhaled Oxygen Concentration - - Weight 130 kg (286 lb 8 oz) 08/08/2023 9:33 AM E DT Height - - Body Mass Index 47.68 06/23/2023 2:27 PM EDT documented in this encounter Progress Notes * Clementine Wang PA-C - 08/08/2023 9:38 AM EDT Cardiology F/U and Preoperative Evaluation and Risk Assessment: SUBJECTIVE: Paige Hendricks is a 68 year old female here today for routine cardiology f/u visit. Last clinic evaluation approximately 3 months ago with the undersigned. Primary horse farm manager is Dr. Grissom. History includes: 1. Longstanding hypertension diastolic dysfunction 2. Chronic diffuse pain with fibromyalgia 3. Hyperlipidemia 4. Familial history of ischemic heart disease 5. Chronic cough 6. Cardiac catheterization December 21, 2017 mild coronary atherosclerosis and luminal irregularities but no obstruction 7. Mild aortic root enlargement 4.0 cm and ascending aorta dilatation at 4.4 cm 8. Chronic renal insufficiency 9. Obstructive sleep apnea/obesity hypoventilation Patient presents today feeling relatively well. She does report shortness of breath with activity such as climbing 1-2 flights of steps or walking up a small incline. She denies exertional chest pain. She notes GERD like symptoms when lying supine in bed. She is considering future bariatric surgery. She is appointment later this month with GI weight loss clinic. No chest pain, palpitations, dizziness, syncope or near syncope. No orthopnea, PND, or increased lower extremity edema. No fever, chills, cough, hematochezia, melena, or hemoptysis. Review of Systems: See HPI for pertinent positives. All others negative, other than those noted in HPI. Patient Active Problem List Diagnosis ADVANCE DIRECTIVE [...] artery disease) (HCC) AMIRA (obstructive sleep apnea) Body mass index (BMI) of 45.0 to 49.9 in adult (HCC) Prediabetes Social History Tobacco Use Smoking status: Never Smokeless tobacco: Never Vaping Use Vaping status: Never Used Substance Use Topics Alcohol use: No Drug use: No Family History Problem Relation Name Age of Onset Cancer Mother ovarian, liver Cancer Father lung, esophageal, liver ca Heart Disorder Father Heart disease Sister Stents Past Surgical History: Procedure Laterality Date COLONOSCOPY, DIAGNOSTIC (RECTUM) 05/09/2018 adenomatous polyp, repeat 5 yrs/COLONOSCOPY FLEXIBLE PROXIMAL DIAGNOSTIC performed by Edgardo Messer MD at ENDOSCOPY [facility] DENTAL SURGERY PROCEDURE NEC Dental Surgery Procedure HAND/FINGER SURGERY NEC 06/01/2011 right hand--Dr. Fuentes INJECT DX/THER SUBSTANCE INTERLAMINAR CERVICAL/THORACIC W IMAGE GUIDE 04/07/2022 INJECTION SPINE LUMBAR CERVICAL OR THORACIC performed by Ezra Harris DO at OR [facility] INJECT DX/THER SUBSTANCE INTERLAMINAR LUMBAR/SACRAL W IMAGE GUIDE 12/06/2021 INJECTION SPINE LUMBAR OR SACRAL performed by Ezra Harris DO at OR [facility] INJECT DX/THER SUBSTANCE INTERLAMINAR LUMBAR/SACRAL W IMAGE GUIDE 10/10/2022 INJECTION SPINE LUMBAR OR SACRAL performed by Ezra Harris DO at OR [facility] LAP;W/HYSTERECTOMY 2001 Hysterectomy Complete LAPAROSCOPY; CHOLECYSTECTOMY [...] INTRAOCULAR LENS performed by Guero Bell MD [facility] REMOVE CATARACT, INSERT LENS PROSTH Right 01/16/2020 rightEXTRACAPSULAR CATARACT REMOVAL WITH INTRAOCULAR LENS performed by Guero Bell MD at OR [facility] UMBIL HERNIA REPAIR (REDUCIBLE) AGE 5+YR [...] every night at bedtime . Saline Nasal [place] 0.65 % Nasal Solution Administer 1 [place] into nostril as needed (nasal dryness, epistaxis). [...] BY MOUTH EVERY EVENING 90 Tablet 3 Venlafaxine HCl ER 37.5 MG Oral Tablet Extended Release 24 Hour Take 1 Tablet by mouth in the morning. Losartan Potassium 25 MG Oral Tablet (Cozaar) TAKE ONE TABLET BY MOUTH EVERY DAY 90 Tablet 2 QUEtiapine Fumarate 200 MG Oral Tablet (SEROquel) Take 1 Tablet by mouth at bedtime. 90 Tablet 3 Nystatin 436009 UNIT/GM External Powder (Nystop) Apply topically to [...] at noon and 1 Capsule before bedtime. oxygen IN GAS 2 LPM bled through auto CPAP 7-12 cm H2O 1 Each 0 Wegovy 0.25 MG/0.5ML Subcutaneous Solution Auto-injector (Semaglutide-Weight Management) Inject 0.25 mg under the skin once a week. 2 mL 5 Multi Vitamin Daily Oral Tablet Take by mouth daily. Citrucel 500 MG Oral Tablet (Methylcellulose (Laxative)) Take 1 Tablet by mouth in the morning. No current facility-administered medications for this visit. OBJECTIVE/PHYSICAL EXAMINATION: BP 112/78 (BP Site: Left Arm, BP Position: Sitting, BP Cuff Size: Large) | Pulse 96 | Resp 12 | Wt 130 kg (286 lb 8 oz) | BMI 47.68 kg/m | BSA 2.44 m Wt Readings from Last 3 Encounters: 08/08/23 130 kg (286 lb 8 oz) 06/28/23 134.3 kg (296 lb) 06/23/23 133.4 kg (294 lb) General: no acute distress and stated age Head: normocephalic, no masses, lesions, tenderness or abnormalities Eyes: conjunctiva are pink and non-injected, sclera clear Throat: clear Nares: without discharge Neck: supple, no adenopathy, no bruits, normal jugular venous pulse, no hepatojugular reflux, no carotid bruits Chest: normal shape and normal respiratory effort, tender to palpation at costochondral junctions Lungs: clear to auscultation and percussion Cardiac Exam: regular rate & rhythm, no murmur, gallop or rub - normal S-1, normal S-2 Abdomen: abdomen soft, moderately large panniculus non-tender, no abnormal masses, no hepatosplenomegaly, no abdominal bruit, no femoral bruit Musculoskeletal: no gait disturbance, no joint inflammation, no deforming arthritis Extremities: No significant edema, soft. no cyanosis, pulses intact 2+/4 Neuro: grossly normal exam Data: EKG performed today and reviewed personally: NSR with voltage criteria for LVH Possible old inferior infarct, newly noted Echo report reviewed dated August 2022: Interpretation Summary The left ventricle was adequately visualized. Calculated LV ejection Fraction = 61% (three dimensional volumes). The left ventricular cavity size is normal. The LV wall thickness is mildly increased (concentric). The leftventricular wall motion is normal.The left ventricular diastolic function is mildly abnormal (grade I). Mild aortic valve regurgitation. The aortic root is mildly enlarged (4.0 cm). The proximal ascending thoracic aorta is moderately enlarged (4.4 cm EKG performed February 15, 2022 , and reviewed personally : Normal sinus rhythm at 96 beats per minute with normal tracing Echocardiogram January 13, 2020 The left ventricular cavity size is normal. The LV wall thickness is moderately increased (concentric). The basal septum is thickened and angulated consistent with sigmoid septum. The left ventricular wall motion is normal. The qualitative LV ejection fraction is 55-59% (normal). The left ventricular diastolic function is mildly abnormal (grade I). Mild aortic valve sclerosis is present. Mild aortic valve regurgitation is present. The aortic root and proximal ascending aorta are mildly enlarged. (4.1/4.3 cm) Compared to prior study of November 24, 2017, there is no significant change. Due for labs ASSESSMENT: 68 year old female Preop possible future bariatric surgery Dyspnea with exertion Mild coronary atherosclerosis per cath in 2018. Med management recommended at that time Abnormal EKG with new inferior and anterior infarct noted. LVH Dilated ascending aorta/aortic root Obesity Chronic diastolic dysfunction/HF -appears euvolemic -normal BNP. 5. HTN 6. Dyslipidemia PLAN: We discussed future bariatric surgery and her ongoing dyspnea, limited functional capacity and abnormal EKG Recommend dobutamine stress echo for further risk stratification, evaluation of LV/RV function, andR/O inducible ischemia. Patient agreeable to proceeding and will arrange. Patient unable to ambulate on a treadmill, therefore dobutamine protocol ordered. Volume status improved form prior evaluations. Continue current diuretics. CHF tools discussed including daily weights, salt/sodium/fluid restriction, and use of diuretic protocol. BP controlled. The patient is to continue all other current meds as listed above Updated labs also requested - orders in place. Patient is being evaluated in the cardiology office for ongoing care/risk management for HTN; HFpEF; dyslipidemia; Mild CAD. I spent a total of 40 minutes on the date of service in preparation, delivery, and documentation ofthe care provided to Paige Hendricks excluding any time spent in the performance of separately billed services. The patient agrees to the above plan and will call with additional questions or concerns. ER with all emergencies advised. Follow-up: Return in about 6 months (around 02/07/2024). | Check-out note: Schedule dobutamine stress echo Clementine Wang PA-C Department of Cardiology This chart was completed in part utilizing [employer] Speech Voice Recognition Software. Grammatical errors, random word insertions, prounoun errors, and incomplete sentences are an occasional consequence of this system due to software limitations, ambient noise, and hardware issues. Any formal questions or concerns about the content, text, or information contained within the body of this dictation should be directly addressed to the provider for clarification. documented in this encounter Procedure Notes * Ramón Grissom MD - 08/08/2023 9:39 AM EDTAssociated Order(s): EKG REASON FOR STUDY: pre-op;pre-op CONCLUSIONS: Normal sinus rhythm Moderate voltage criteria for LVH, may be normal variant Inferior infarct , age undetermined Anterolateral infarct , age undetermined Abnormal ECG When compared with ECG of 15-Feb-2022 14:17, Significant changes have occurred Ventricular Rate: 80 Atrial Rate: 80 SC Interval: 174 QRS Duration: 92 QT/QTc: 374/431 ms P-R-T Union: 38 : -5 : 11 degrees documented in this encounter Nursing Notes * Brianna Bañuelos CMA - 08/08/2023 9:30 AM EDT Chief Complaint Patient presents with Follow Up Pre-op Clearance Risk stratification for bariatric surgery Examination Room: 6 Name: Paige Hendricks Date of : (1955). Reason for Visit: 13M f/u Interim Hospitalization(s): none Problems/Concerns: denies Chest Pain/SOB: Denies CP or unusual SOB [facility] Discussed: No [facility] is a way you can talk to your provider online through e-mail. Would you like to sign up? I can activate it for you? DECLINES Patient was instructed to not get up on the exam table until directed and assisted by their provider; patient is to remain seated in the chair/ wheelchair/ exam table for fall prevention and safety reasons. Patient is aware to have assistance to step down off exam table with personnel. Patient voiced full comprehension of instructions. documented in this encounter Plan of Treatment Upcoming Encounters Date Type Department Care Team (Latest Contact Info) Description 4 2:20 PM EDT Office Visit [facility], [place] [address] [facility] [phone] Kennedy Brooks [facility] [address] [facility] [address] 4 1:00 PM EDT Imaging Radiology, [facility] [address] [facility] [place] [address] 4 9:00 AM EDT Therapy Psychology, [facility] [address] [facility] [place] [address] Luz Carranza, [facility] [address] [facility] [place] [address] 4 1:30 PM EDT Telemedicine Nutrition & Weight Management, [facility] [address] [place] [address] [facility], Surgery Class Provider [facility] [address] [place] [address] 4 2:40 PM EDT Telemedicine Nutrition & Weight Management, [facility] [address] [place] [address] Chanda Bah PA-C [address] [place] [address] 4 1:50 PM EDT Nutrition Services Nutrition & Weight Management, [facility] [address] [place] [address] Laura Hinds RDN [address] [place] [address] 4 10:35 AM EDT Hospital Encounter OR [facility], Operating Room, [facility] - 4th Floor [address] [place] [address] Jan Haynes, DO [address] [place] [address] 4 10:35 AM EDT - 4 11:06 AM EDT Surgery OR [facility], Operating Room, [facility] - 4th Floor [address] [place] [address] Jan Haynes, DO [address] [place] [address] ESOPHAGOGASTRODUODENOSCOPY (EGD), FLEXIBLE, TRANSORAL, DIAGNOSTIC 4 1:30 PM EDT Imaging Cardiac Studies, [facility] [address] [place] [address] 4 10:00 AM EDT Office Visit [facility] [address] [place] [phone] Iwona Yanez CRNP [address] [place] [address] 4 11:40 AM EDT Office Visit Nephrology, Kiley Gavin [address] [place] [address] Joaquin Shelley MD [address] [place] [address] 4 11:00 AM EDT Office Visit Nutrition & Weight Management, [facility] [address] [place] [address] Sallie Marrero PA-C [address] [facility] [place] [address] 4 2:00 PM EST Office Visit Cardiology, [facility] [address] [place] [address] Clementine Wang PA-C [address] [place] [address] 5 2:00 PM EST Nurse Only Ancillary Department, [place] [address] [facility] [place] [address] [place], Nurse [facility] [address] [place] [address] Scheduled Orders Name Type Priority Associated Diagnoses Orde r Schedule ECHO, STRESS (DOBUTAMINE) W/ PHYSICIAN Echocardiology Routine Pre-operative cardiovascular examination Dyslipidemia, goal LDL below 70 Aortic root enlargement (HCC) Chronic diastolic heart failure (HCC) Dyspnea on exertion Nonspecific abnormal electrocardiogram (ECG) (EKG) Expected: 08/08/2023, Expires: 08/07/2024 Scheduled Procedures Name Priority Associated Diagnoses Date/Ti [...] Monitoring 04/21/2024 04/21/2023 CKD HGB USE SMARTSET 18056 06/26/202406/26, 06/27/2023, 08/31/2022, Additional history exists CKD PHOS USE SMARTSET 80524 06/26/202406/05, 09/09/2020, 03/24/2020, Additional history exists HbA1c [...] this encounter Medical Devices Implanted Type Area Quality Control Chemist Device Identifier Shelf Expiration Date Model / Serial / Lot Lens Intraoc 20.0 - [id number] - [id number] Implanted:Qty: 1 on 01/02/2020 by Guero Bell MD at OR [facility] Left: Eye [employer] 07/03/2024 [id number] / [id number] / [id number] Lens Intraoc 20.0 - [id number] - [id number] Implanted:Qty: 1 on 01/16/2020 by Guero Bell MD at [facility] Right: Eye [employer] 08/03/2024 [id number] / [id number] / [id number] documented as of this encounter Procedures Procedure Name Priority Date/Time Associated Diagnosis Comments SC ECG ROUTINE ECG W/LEAST 12 LDS W/I&R Routine 08/08/2023 9:39 AM EDT Pre-operative cardiovascular examination documented in this encounter Results * EKG (08/08/2023 9:39 AM EDT) 08/08/2023 9:39 AM EDT Narrative Procedure Note Ramón Grissom MD - 08/08/2023 9:39 AM EDT REASON FOR STUDY: pre-op;pre-op CONCLUSIONS: Normal sinus rhythm Moderate voltage criteria for LVH, may be normal variant Inferior infarct , age undetermined Anterolateral infarct , age undetermined Abnormal ECG When compared with ECG of 15-Feb-2022 14:17, Significant changes have occurred Ventricular Rate: 80 Atrial Rate: 80 SC Interval: 174 QRS Duration: 92 QT/QTc: 374/431 ms P-R-T Union: 38 : -5 : 11 degrees Clementine Wang PA-C EKG [facility] documented in this encounter Visit Diagnoses Diagnosis Pre-operative cardiovascular examination- Primary Dyslipidemia, goal LDL below 70 Other and unspecified hyperlipidemia Aortic root enlargement (HCC) Other specified disorders of arteries and arterioles Chronic diastolic heart failure (HCC) Chronic diastolic heart failure Dyspnea on exertion Other dyspnea and respiratory abnormality Nonspecific abnormal electrocardiogram (ECG) (EKG) Morbid obesity due to excess calories (HCC) documented in this encounter Care Teams Rn Diabetes Educator Relationship Specialty Start Date End Date Kennedy Brooks MD [address] [place] [address] PCP - General Family Medicine 04/23/18 documented as of this encounter
--- OUTSIDE RECORDS SUMMARY | 2024-01-17 10:39 | External Medical Summary | Summary of Care ---
Author Name Unknown Organization [facility] Address [address] [place] [address] Phone [phone] Care Team Providers Care Phototypesetting Equipment Monitor Name Role Phone Kennedy Brooks MD Primary Care Provider [phone] Encounter Details Date Type Department Care Team (Latest Contact Info) Description 08/21/2023 2:34 PM EDT - 08/21/2023 11:59 PM EDT Hospital Encounter [facility]iology [facility] [address] [place], [place] [id number] Arrived Discharge Disposition: Home - Self Care Allergies [...] night at bedtime . Active Saline Nasal [place] 0.65 % Nasal Solution Administer 1 [place] into nostril as needed (nasal dryness, epistaxis). [...] bedtime. 90 Tablet 3 05/04/2023 Active Nystatin [id number] UNIT/GM External Powder (Nystop) Apply topically to [...] Auto-injector (Semaglutide-Weight Management)Indication s:PAD (peripheral artery disease) ([facility]) [...] mRNA, LNP-s, No Pre serve, 2-Dose Series ([employer]) 01/08/2022,05/06/2021 COVID-19, MRNA-LNP, 23-24, P F, 52 [...] 18 years and over) Not on file 02/16/202 4 Are you (or your family) grecia eless [...] Description 4 2:20 PM EDT Office Visit [facility] [address] [place] [address] Kennedy Brooks MD [address] [place] [address] 4 1:00 PM EDT Imaging Radiology, [place] 529670 [facility] [address] 4 9:00 AM EDT Therapy Psychology, [facility] [address] [place] [address] Luz Carranza, Michelle [address] [place] [address] 4 1:30 PM EDT Telemedicine Nutrition & [facility], [facility] [address] [place] [address] [facility], Surgery Class Provider Mamta [address] [place] [address] 4 2:40 PM EDT Telemedicine Nutrition & Weight Management, [facility] [address] [place] [address] Chanda Bah PA-C [address] [place] [address] 4 1:50 PM EDT Nutrition Services Nutrition & Weight Management, [facility] [address] [place] [address] Laura Hinds RDN [address] [place] [address] 4 10:35 AM EDT Hospital Encounter OR GL, Operating Room, [facility] - 4th Floor [address] [place] [address] [place] [address] Jan Haynes, DO [address] [place] [address] 4 10:35 AM EDT - 4 11:06 AM EDT Surgery OR [facility], Operating Room, [facility] - 4th Floor [address] [place] [place] [address] Jan Haynes, DO [address] [place] [address] ESOPHAGOGASTRODUODENOSCOPY (EGD), FLEXIBLE, TRANSORAL, DIAGNOSTIC 4 1:30 PM EDT Imaging Cardiac Studies, [facility] [address] [place] [address] 4 10:00 AM EDT Office Visit Sleep Disorders Ctr [facility] [address] [place] [address] Iwona Yanez CRNP [address] [place] [address] 4 11:40 AM EDT Office Visit Nephrology, [facility] 200 [facility] [address] Joaquin Shelley MD 200 [facility] [address] 4 11:00 AM EDT Office Visit Nutrition & Weight Management, [facility] [place] [address] Sallie Marrero PA-C [address] [place] [address] 4 2:00 PM EST Office Visit Cardiology, [facility] [place] [address] Clementine Wang PA-C [address] [place] [address] 5 2:00 PM EST Nurse Only Ancillary Department, [place] [address] [place] [address] [place], Nurse Annual Wellness [address] [place] [address] Pending Results Name Type Priority Associated Diagnoses Date /Time XR KNEE 1-2 VIEWS Medical Imaging Routine Chronic pain of left knee 08/21/2023 2:45 PM EDT Scheduled Procedures Name Priority Associated Diagnoses Date/Ti hi ESOPHAGOGASTRODUODENOSCOPY ( EGD), FLEXIBLE, TRANSORAL, DIAGNOSTIC Morbid [...] Monitoring 04/21/2024 04/21/2023 CKD HGB USE SMARTSET 47941 06/26/202406/26, 06/27/2023, 08/31/2022, Additional history exists CKD PHOS USE SMARTSET 35421 06/26/202406/05, 09/09/2020, 03/24/2020, Additional history exists HbA1c [...] this encounter Medical Devices Implanted Type Area Research Psychologist Device Identifier Shelf Expiration Date Model / Serial / Lot Lens Intraoc 20.0 - [id number] - [id number] Implanted:Qty: 1 on 01/02/2020 by Guero Bell MD at OR [facility] Left: Eye BAUSCH & LOMB 07/03/2024 [id number] / [id number] / [id number] Lens Intraoc 20.0 - [id number] - [id number] Implanted:Qty: 1 on 01/16/2020 by Guero Bell MD at OR [facility] Right: Eye BAUSCH & LOMB 08/03/2024 [id number] / [id number] / [id number] documented as of this encounter Care Teams Phototypesetting Equipment Monitor Relationship Specialty Start Date End Date Kennedy Brooks MD [address] [place] [address] PCP - General Family Medicine 04/23/18 documented as of this encounter
--- OUTSIDE RECORDS SUMMARY | 2024-01-17 10:40 | External Medical Summary | Summary of Care ---
Author Name Unknown Organization [facility] Address [address] [place] [address] Phone [phone] Care Team Providers Care Power Supply Engineer Name Role Phone Kennedy Brooks MD Primary Care Provider [phone] Reason for Visit * Reason Onset Date Comments Referral 08/01/2023 Encounter Details Date Type Department Care Team ([facility] st Contact Info) Description 08/01/2023 Telephone [facility] [address] [place] [address] [facility] Referral Allergies Active Allergy Reactions Criticality Noted Date Comments Paroxetine Hydrochloride Hives 06/07/2007 documented as of this encounter (statuses as of 08/03/2023) Medications Medication Sig Dispensed Refills Start Date [...] night at bedtime . Active Saline Nasal [place] 0.65 % Nasal Solution Administer 1 [place] into nostril as needed (nasal dryness, epistaxis). [...] bedtime. 90 Tablet 3 05/04/2023 Active Nystatin 631604 UNIT/GM External Powder (Nystop) Apply topically to [...] as of this encounter (statuses as of 08/03/2023) Active Problems Problem Noted Date Diagnosed Date [...] as of this encounter (statuses as of 08/03/2023) Resolved Problems Problem Noted Date Diagnosed Date [...] as of this encounter (statuses as of 08/03/2023) Immunizations Name Administration Dates Next Due COVID-19 mRNA, LNP-s, No Pre serve, 2-Dose Series ([employer]) 01/08/2022,05/06/2021 COVID-19, MRNA-LNP, 23-24, P F, 52 [...] Miscellaneous Notes * Telephone Encounter - Eloisa Buchanan BS - 08/03/2023 3:00 PM EDT Member returning a call back in regards to the referral I will be mailing her a list of providers out for talk therapy mailing address was confirmed * Telephone Encounter - Eloisa Buchanan BS - 08/01/2023 2:50 PM EDT Epic 178 referral Reason for the referral Major depressive disorder, recurrent episode, mild Primary Class 3 severe obesity due to excess calories with body mass index (BMI) of 45.0 to 49.9 inadult, unspecified whether serious comorbidity present (HCC) Psychological factors affecting medical condition Pt would like assistance getting connected to in-person OP Therapy/Counseling and in-person OP Psychiatry services covered by her insurance. Outcome: called [phone] and had to leave a VM for the member. If call is returned please assist with the referral resources. 2nd attempt call will be on 08/04/2023 documented in this encounter Plan of Treatment Upcoming Encounters Date Type Department Care Team (Latest Contact Info) Description 4 9:30 AM EDT Office Visit Cardiology, [facility] [place] [address] Clementnie Wang, JACKIE [facility] [place] [address] 4 1:45 PM EDT Office Visit Orthopaedics [facility] [place] [address] Hans Cruz DO [address] [facility] [place] [address] 4 8:30 AM EDT Home Visit [facility] [address] [place] [address] Kim Piper, RN [address] [place] [address] 4 2:20 PM EDT Office Visit Orthopaedics [address] [address] Jayce Curtis MD [address] [place] [address] 4 2:20 PM EDT Office Visit Family Practice, [place] [address] [facility] [place] [phone] Kennedy Brooks MD [address] [place] [facility] [place] [address] 4 1:00 PM EDT Imaging Radiology, [place] 777040 [facility] [place] [address] 4 9:00 AM EDT Therapy Psychology, [facility] 200 [facility] [place] [address] Luz Carranza O, [facility] 200 [facility] [place] [address] 4 1:30 PM EDT Telemedicine Nutrition & Weight Management, [facility] [address] [place] [address] [facility], Surgery Class Provider Mamta [address] [place] [address] 4 2:40 PM EDT Telemedicine Nutrition & Weight Management, [facility] [address] [place] [address] Chanda Bah PA-C 132 [place] [address] 4 1:50 PM EDT Nutrition Services Nutrition & Weight Management, [facility] [address] [place] [address] Laura Hinds RDN 132 [place] [address] 4 12:04 PM EDT Hospital Encounter OR [facility], Operating Room, [facility] - 4th Floor [address] [place], [place] [address]F[place] [phone] Jan Haynes, DO [address] [place] [address] 4 12:04 PM EDT - 4 12:35 PM EDT Surgery OR GL, Operating Room, [facility] - 4th Floor [address] [place] [address] Jan Haynes, DO [address] [place] [address] ESOPHAGOGASTRODUODENOSCOPY (EGD), FLEXIBLE, TRANSORAL, DIAGNOSTIC 4 10:00 AM EDT Office Visit Sleep Disorders Ctr Mamta [place] [facility] [place] [address] Iwona Yanez CRNP [address] [place] [address] 4 11:40 AM EDT Office Visit Nephrology, [facility] 200 [facility] [place] [address] Joaquin Shelley MD 200 [facility] [place] [address] 4 11:00 AM EDT Office Visit [facility] & [facility] Management, [facility] [address] [place] [address] Sallie Marrero PA-C 132 [facility] [place] [address] 5 2:00 PM EST Nurse Only Ancillary Department, [address] [place] [address] [place], Nurse Annual Wellness [address] [facility] [place] [address] Scheduled Procedures Name Priority Associated Diagnoses Date/Ti [...] Additional history exists CKD HGB USE SMARTSET 83185 06/26/202406/26, 06/27/2023, 08/31/2022, Additional history exists CKD PHOS USE SMARTSET 29689 06/26/202406/05, 09/09/2020, 03/24/2020, Additional history exists HbA1c [...] this encounter Medical Devices Implanted Type Area Farmworker Cranberry Device Identifier Shelf Expiration Date Model / Serial / Lot Lens Intraoc 20.0 - [id number] - [id number] Implanted:Qty: 1 on 01/02/2020 by Guero Bell MD at OR [facility] Left: Eye BAUSCH & LOMB 07/03/2024 [id number] / [id number] / [id number] Lens Intraoc 20.0 - [id number] - [id number] Implanted:Qty: 1 on 01/16/2020 by Guero Bell MD at OR [facility] Right: Eye BAUSCH & LOMB 08/03/2024 [id number] / [id number] / [id number] documented as of this encounter Care Teams Power Supply Engineer Relationship Specialty Start Date End Date Kennedy Brooks MD [address] [place] [address] PCP - General Family Medicine 04/23/18 documented as of this encounter
--- OUTSIDE RECORDS SUMMARY | 2024-01-17 10:40 | External Medical Summary | Summary of Care ---
Author Name Unknown Organization [facility] Address [address] [place] [address] Phone [phone] Care Team Providers Care Marine Services Technician Name Role Phone Kennedy Brooks MD Primary Care Provider [phone] Reason for Visit * Reason Onset Date Comments Advice 07/20/2023 Med Request 07/20/2023 Encounter Details Date Type Department Care Team (Late st Contact Info) Description 07/20/2023 Telephone [facility] [address] [place] [address] Kennedy Brooks MD [address] [place] [address] Advice; Med Request Allergies Active [...] night at bedtime . Active Saline Nasal [place] 0.65 % Nasal Solution Administer 1 [place] into nostril as needed (nasal dryness, epistaxis). [...] bedtime. 90 Tablet 3 05/04/2023 Active Nystatin 924460 UNIT/GM External Powder (Nystop) Apply topically to [...] her PCP. Can we send it to [facility] pharmacy in [place] for her instead. documented in this encounter Plan of Treatment Upcoming Encounters Date Type Department Care Team (Latest Contact Info) Description 4 9:30 AM EDT Office Visit Cardiology, [facility] [address] [place] [address] Clementine Wang PA-C [address] [place] [address] 4 1:45 PM EDT Office Visit Orthopaedics [facility] [address] [place] [address] Hans Cruz DO [address] [place] [address] 4 8:30 AM EDT Home Visit [facility] at Home, [facility] [address] [place] [address] Kim Piper RN [address] [place] [address] 4 2:20 PM EDT Office Visit Orthopaedics [facility] [place] [place] [address] Jayce Curtis MD [address] [facility] [address] 4 2:20 PM EDT Office Visit [address] [place] [address] Kennedy Brooks MD [address] [facility] [place] [address] 4 1:00 PM EDT Imaging Radiology, [facility] [address] [facility] [address] 4 9:00 AM EDT Therapy Psychology, [facility] 200 [facility] [place] [address] Luz Carranza, [facility] 200 [facility] [place] [address] 4 1:30 PM EDT Telemedicine Nutrition & Weight Management, [facility] [address] [place] [address] [employer], Surgery Class Provider Mamta [address] [place] [address] 4 2:40 PM EDT Telemedicine Nutrition & Weight Management, [facility] [address] [place] [address] Chanda Bah PA-C [address] [place] [address] 4 1:50 PM EDT Nutrition Services Nutrition & Weight Management, [facility] [address] [place] [address] Laura Hinds RDN [address] [place] [address] 4 12:04 PM EDT Hospital Encounter [facility], Operating Room, [facility] - 4th Floor [address] [place] [address] [place] [phone] Jan Haynes DO [address] [place] [address] 4 12:04 PM EDT - 4 12:35 PM EDT Surgery OR [facility], Operating Room, [facility] - 4th Floor [address] [place] [address] Jan Haynes DO [address] [place] [address] ESOPHAGOGASTRODUODENOSCOPY (EGD), FLEXIBLE, TRANSORAL, DIAGNOSTIC 4 10:00 AM EDT Office Visit Sleep Disorders Ctr [facility] 132 [facility] [place] [address] Iwona Yanez CRNP [address] [place] [address] 4 11:40 AM EDT Office Visit Nephrology, [facility] 200 [facility] [place] [address] Joaquin Shelley MD 200 [facility] [place] [address] 4 11:00 AM EDT Office Visit Nutrition & Weight Management, [facility] 132 [facility] [place] [address] Sallie Marrero PA-C [address] [place] [address] 5 2:00 PM EST Nurse Only Ancillary Department, [address] [address] [place], Nurse Annual Wellness [address] [facility] [address] Scheduled Procedures Name Priority Associated Diagnoses Date/Ti [...] Additional history exists CKD HGB USE SMARTSET 62778 06/26/202406/26, 06/27/2023, 08/31/2022, Additional history exists CKD PHOS USE SMARTSET 13135 06/26/202406/05, 09/09/2020, 03/24/2020, Additional history exists HbA1c [...] this encounter Medical Devices Implanted Type Area Safety And Skill Based Pay Manager Device Identifier Shelf Expiration Date Model / Serial / Lot Lens Intraoc 20.0 - [id number] - [id number] Implanted:Qty: 1 on 01/02/2020 by Guero Bell MD at OR [facility] Left: Eye BAUSCH & LOMB 07/03/2024 [id number] / [id number] / [id number] Lens Intraoc 20.0 - [id number] - [id number] Implanted:Qty: 1 on 01/16/2020 by Guero Bell MD at OR [facility] Right: Eye BAUSCH & LOMB 08/03/2024 [id number] / [id number] / [id number] documented as of this encounter Care Teams Marine Services Technician Relationship Specialty Start Date End Date Kennedy Brooks MD [address] [place] [address] PCP - General Family Medicine 04/23/18 documented as of this encounter
--- OUTSIDE RECORDS SUMMARY | 2024-01-17 10:40 | External Medical Summary | Summary of Care ---
Author Name Unknown Organization [facility] Address [address] [place] [address] Phone [phone] Care Team Providers Care Bridge Mechanic Name Role Phone Kennedy Brooks MD Primary Care Provider [phone] Encounter Details Date Type Department Care Team (Late st Contact Info) Description 08/01/2023 Telephone Psychology [facility] [address] [place] [address] Luz Carranza O, PsyD [address] [place], [place] [phone] Allergies Active Allergy Reactions Criticality Noted Date [...] night at bedtime . Active Saline Nasal [place] 0.65 % Nasal Solution Administer 1 [place] into nostril as needed (nasal dryness, epistaxis). [...] bedtime. 90 Tablet 3 05/04/2023 Active Nystatin 487644 UNIT/GM External Powder (Nystop) Apply topically to [...] mRNA, LNP-s, No Pre serve, 2-Dose Series ([employer]) 01/08/2022,05/06/2021 COVID-19, MRNA-LNP, 23-24, P F, 52 [...] encounter Miscellaneous Notes * Telephone Encounter - Anastacio Brown LPN - 08/03/2023 3:42 PM EDT Issue resolved in another ENC * Telephone Encounter - Anastacio Brown LPN - 08/03/2023 8:29 AM EDT Left message for patient to return call. * Telephone Encounter - Anastacio Brown LPN - 08/02/2023 2:08 PM EDT Left message for patient to return call. See 07/27 ENC as well * Telephone Encounter - Isha Schwarz MED ASSIST - 08/01/2023 3:54 PM EDT Patient contacting Gastro. Please contact patient. documented in this encounter Plan of Treatment Upcoming Encounters Date Type Department Care Team (Latest Contact Info) Description 4 9:30 AM EDT Office Visit Cardiology, [facility] [address] [place] [address] Clementine Wang PA-C [address] [place] [address] 4 1:45 PM EDT Office Visit Orthopaedics [facility] [address] [place] [address] Hans Cruz, [address] [place] [address] 4 8:30 AM EDT Home Visit [facility] [address] [place] [address] Kim Piper, RN [address] [place] [address] 4 2:20 PM EDT Office Visit Orthopaedics [place], [place] [place] [address] Jayce Curtis MD [address] [place] [address] 4 2:20 PM EDT Office Visit [facility] [address] [place] [facility] [place] [address] Kennedy Brooks MD [address] [place] [address] 4 1:00 PM EDT Imaging Radiology, [place] [address] [facility] [place] [address] 4 9:00 AM EDT Therapy Psychology, [facility] 200 [facility] [place] [address] Luz Carranza, [facility] 200 [facility] [place] [address] 4 1:30 PM EDT Telemedicine Nutrition & Weight Management, [facility] [address] [place] [address] [facility], Surgery Class Provider Mamta [address] [place] [address] 4 2:40 PM EDT Telemedicine Nutrition & Weight Management, [facility] [address] [place] [address] Chanda Bah PA-C [address] [place] [address] 4 1:50 PM EDT Nutrition Services Nutrition & Weight Management, [facility] [address] [address] Laura Hinds RDN [address] [place] [address] 4 12:04 PM EDT Hospital Encounter OR [facility], Operating Room, [facility] - 4th Floor [address] [place] [address] Jan Haynes, DO [address] [place] [address] 4 12:04 PM EDT - 4 12:35 PM EDT Surgery OR GL, Operating Room, [facility] - 4th Floor [address] [place] [address] Jan Haynes, DO [address] [place] [address] ESOPHAGOGASTRODUODENOSCOPY (EGD), FLEXIBLE, TRANSORAL, DIAGNOSTIC 4 10:00 AM EDT Office Visit [facility] Disorders Ctr [facility] [address] [place] [address] Iwona Yanez CRNP [address] [place] [address] 4 11:40 AM EDT Office Visit Nephrology, [facility] 200 [facility] [place] [address] Joaquin Shelley MD 200 [facility] [place] [address] 4 11:00 AM EDT Office Visit Nutrition & Weight Management, [facility] [address] [place] [address] Sallie Marrero PA-C [address] [place] [address] 5 2:00 PM EST Nurse Only Ancillary Department, [address] [address] [place], Nurse Annual Wellness [address] [facility] [place] [address] Scheduled Procedures Name Priority Associated Diagnoses Date/Ti [...] Additional history exists CKD HGB USE SMARTSET 91123 06/26/202406/26, 06/27/2023, 08/31/2022, Additional history exists CKD PHOS USE SMARTSET 77868 06/26/202406/05, 09/09/2020, 03/24/2020, Additional history exists HbA1c [...] this encounter Medical Devices Implanted Type Area Box Blank Machine Feeder Device Identifier Shelf Expiration Date Model / Serial / Lot Lens Intraoc 20.0 - [id number] - [id number] Implanted:Qty: 1 on 01/02/2020 by Guero Bell MD at OR [facility] Left: Eye BAUSCH & LOMB 07/03/2024 [id number] / [id number] / [id number] Lens Intraoc 20.0 - [id number] - [id number] Implanted:Qty: 1 on 01/16/2020 by Guero Bell MD at OR [facility] Right: Eye BAUSCH & LOMB 08/03/2024 [id number] / [id number] / [id number] documented as of this encounter Care Teams Bridge Mechanic Relationship Specialty Start Date End Date Kennedy Brooks MD [address] [place] [address] PCP - General Family Medicine 04/23/18 documented as of this encounter
--- OUTSIDE RECORDS SUMMARY | 2024-01-17 10:40 | External Medical Summary | Summary of Care ---
Author Name Unknown Organization [facility] Address [address] [place] [address] Phone [phone] Care Team Providers Care Catalogue Clerk Name Role Phone Kennedy Brooks MD Primary Care Provider [phone] Reason for Visit * Reason Onset Date Comments Test Results 07/28/2023 Encounter Details Date Type Department Care Team (Late st Contact Info) Description 07/28/2023 Telephone Nutrition & Weight Management, [facility] [address] [place] [address] Sallie Marrero PA-C [address] [place] [address] Test Results Allergies Active Allergy Reactions Criticality [...] night at bedtime . Active Saline Nasal [place] 0.65 % Nasal Solution Administer 1 [place] into nostril as needed (nasal dryness, epistaxis). [...] bedtime. 90 Tablet 3 05/04/2023 Active Nystatin 716659 UNIT/GM External Powder (Nystop) Apply topically to [...] Encounter - Anastacio Brown LPN - 08/03/2023 2:39 PM EDT Patient aware and voiced understanding. She is seeing a specialist regarding her Kidney already. The pt was instructed to see her PCP before the provider would continue her Wegovy. The pt cannot get in with her PCP until 08/25/2023, and she took her last Wegovy shot on 07/24/2023. Please advise. * Telephone Encounter - Kaye Yoder OSA - 08/03/2023 2:36 PM EDT Patient calling back to talk to nurses, transferring to clinic * Telephone Encounter - Sallie Marrero PA-C - 08/03/2023 8:42 AM EDT Noted * Telephone Encounter - Anastacio Brown LPN - 08/03/2023 8:30 AM EDT Left message for patient to return call. Letter Sent * Telephone Encounter - Anastacio Brown LPN - 08/02/2023 2:08 PM EDT Left message for patient to return call. * Telephone Encounter - Melissa Barreto CMA - 08/01/2023 10:54 AM EDT Left voicemail for pt to call back * Telephone Encounter - Sallie Marrero PA-C - 07/28/2023 8:38 AM EDT Please call patient Ultrasound shows fatty liver (weight loss is the treatment) Also shows cyst in the kidney and a little calcification in the liver-- unchanged from previous documented in this encounter Plan of Treatment Upcoming Encounters Date Type Department Care Team (Latest Contact Info) Description 4 9:30 AM EDT Office Visit Cardiology, [facility] [address] [place] [address] Clementine Wang PA-C [address] [place] [address] 4 1:45 PM EDT Office Visit Orthopaedics [facility] [address] [facility] [place] [address] Hans Cruz DO [address] [facility] [facility] [place] [place] [address] 4 8:30 AM EDT Home Visit [facility] [address] [facility] [place] [address] Kim Piper RN [address] [place] [address] 4 2:20 PM EDT [facility] [address] [place] [address] Jayce Curtis MD [address] [place] [address] 4 2:20 PM EDT Office Visit Family [facility] [address] [place] [address] Kennedy Brooks MD [address] [place] [address] 4 1:00 PM EDT Imaging Radiology, [address] [place] [address] 4 9:00 AM EDT Therapy Psychology, [facility] [address] [place] [address] Luz Carranza, [facility] [address] [place] [address] 4 1:30 PM EDT Telemedicine Nutrition & Weight Management, [facility] [address] [place] [address] [facility], Surgery Class Provider [facility] [address] [place] [address] 4 2:40 PM EDT Telemedicine Nutrition & Weight Management, [facility] [address] [place] [address] Chanda Bah PA-C [address] [place] [address] 4 1:50 PM EDT Nutrition Services Nutrition & Weight Management, [facility] [address] [place] [address] Laura Hinds RDN [address] [place] [address] 4 12:04 PM EDT Hospital Encounter OR [facility], Operating Room, [facility] - 4th Floor [address] [place] [address] Jan Haynes, [address] [place] [address] 4 12:04 PM EDT - 4 12:35 PM EDT Surgery OR [facility], Operating Room, [facility] - 4th Floor [address] [place] [address] Jan Haynes, DO [address] [place] [address] ESOPHAGOGASTRODUODENOSCOPY (EGD), FLEXIBLE, TRANSORAL, DIAGNOSTIC 4 10:00 AM EDT Office Visit Sleep Disorders [facility] [place] [address] Iwona Yanez CRNP [address] [place] [address] 4 11:40 AM EDT Office Visit Nephrology, [facility] 200 [facility] [place] [address] Joaquin Shelley MD 200 [facility] [place] [address] 4 11:00 AM EDT Office Visit Nutrition & Weight Management, [facility] [place] [address] Sallie Marrero PA-C 132 [facility] [place] [address] 5 2:00 PM EST Nurse Only Ancillary Department, [address] [address] [place], Nurse Annual Wellness [address] [place] [address] Scheduled Procedures Name Priority Associated Diagnoses Date/Ti [...] Additional history exists CKD HGB USE SMARTSET 40260 06/26/202406/26, 06/27/2023, 08/31/2022, Additional history exists CKD PHOS USE SMARTSET 52830 06/26/202406/05, 09/09/2020, 03/24/2020, Additional history exists HbA1c [...] this encounter Medical Devices Implanted Type Area Netsuite Consultant Device Identifier Shelf Expiration Date Model / Serial / Lot Lens Intraoc 20.0 - [id number] - [id number] Implanted:Qty: 1 on 01/02/2020 by Guero Bell MD at OR [facility] Left: Eye BAUSCH & LOMB 07/03/2024 [id number] / [id number] / [id number] Lens Intraoc 20.0 - [id number] - [id number] Implanted:Qty: 1 on 01/16/2020 by Guero Bell MD at OR [facility] Right: Eye BAUSCH & LOMB 08/03/2024 [id number] / [id number] / [id number] documented as of this encounter Care Teams Catalogue Clerk Relationship Specialty Start Date End Date Kennedy Brooks MD [address] [place] [address] PCP - General Family Medicine 04/23/18 documented as of this encounter
--- OUTSIDE RECORDS SUMMARY | 2024-01-17 10:40 | External Medical Summary | Summary of Care ---
Author Name Unknown Organization [facility] Address [address] [place] [address] Phone [phone] Care Team Providers Care Sound Tester Name Role Phone Kennedy Brooks MD Primary Care Provider [phone] Reason for Visit * Reason Onset Date Comments Test Results 07/28/2023 Encounter Details Date Type Department Care Team (Late st Contact Info) Description 07/28/2023 Telephone Nutrition & Weight Management, [facility] [address] [place] [address] Sallie Marrero PA-C [address] [place] [address] Test Results Allergies Active Allergy Reactions Criticality [...] night at bedtime . Active Saline Nasal [place] 0.65 % Nasal Solution Administer 1 [place] into nostril as needed (nasal dryness, epistaxis). [...] bedtime. 90 Tablet 3 05/04/2023 Active Nystatin 312414 UNIT/GM External Powder (Nystop) Apply topically to [...] encounter Miscellaneous Notes * Telephone Encounter - Sallie Marrero PA-C [...] 4 9:30 AM EDT Office Visit Cardiology, [facility] [address] [place] [address] Clementine Wang PA-C [address] [place] [address] 4 1:45 PM EDT Office Visit Orthopaedics [facility] [address] [place] [address] Hans Cruz DO [address] [place] [address] 4 8:30 AM EDT [facility], [facility] [place] [address] Kim Piper, RN [address] [place] [address] 4 2:20 PM EDT Office Visit Orthopaedics [facility] [address] [place] [address] Jayce Curtis MD [address] [place] [facility] [place] [address] 4 2:20 PM EDT Office Visit [facility] [address] [place] [address] Kennedy Brooks MD [address] [place] [address] 4 1:00 PM EDT Imaging Radiology, [place] [address] [facility] [place] [address] 4 9:00 AM EDT Therapy Psychology, [facility] 200 [facility] [place] [address] Luz Carranza, [facility] 200 [facility] [place] [address] 4 1:30 PM EDT Telemedicine Nutrition & [facility] Management, [facility] 132 [facility] [place] [address] [facility], Surgery Class Provider Mamta [address] [place] [address] 4 2:40 PM EDT Telemedicine Nutrition & Weight Management, [facility] [address] [place] [address] Chanda Bah PA-C [address] [place] [address] 4 1:50 PM EDT Nutrition Services Nutrition & Weight Management, [facility] [address] [place] [address] Laura Hinds RDN [address] [place] [address] 4 1:09 PM EDT Hospital Encounter OR [facility], Operating Room, [facility] - 4th Floor 400 [facility] [place] [address] Jan Haynes, [address] [place] [address] 4 1:09 PM EDT - 4 1:40 PM EDT Surgery OR [facility], Operating Room, [facility] - 4th Floor 400 [facility] [place] [address] Jan Haynes, [address] [place] [address] ESOPHAGOGASTRODUODENOSCOPY (EGD), FLEXIBLE, TRANSORAL, DIAGNOSTIC 4 10:00 AM EDT Office Visit Sleep Disorders C[facility] [address] [place] [address] Iwona Yanez CRNP [address] [place] [address] 4 11:40 AM EDT Office Visit Nephrology, [facility] [address] [place] [address] Joaquin Shelley MD [address] [place] [address] 4 11:00 AM EDT Office Visit Nutrition & Weight Management, [facility] [address] [place] [address] Sallie Marrero PA-C [address] [place] [address] 5 2:00 PM EST Nurse Only Ancillary Department, [place] [address] [facility] [address] [place], Nurse Annual Wellness [address] [facility] [address] Scheduled Procedures Name Priority Associated Diagnoses Date/Ti me ESOPHAGOGASTRODUODENOSCOPY ( EGD), FLEXIBLE, TRANSORAL, DIAGNOSTIC Morbid obesity due to excess calories (HCC) 10/11/2023 1:09 PM EDT COLONOSCOPY FLEXIBLE PROXIMA L DIAGNOSTIC [...] Additional history exists CKD HGB USE SMARTSET 50807 06/26/202406/26, 06/27/2023, 08/31/2022, Additional history exists CKD PHOS USE SMARTSET 37992 06/26/202406/05, 09/09/2020, 03/24/2020, Additional history exists HbA1c [...] this encounter Medical Devices Implanted Type Area Comber Setter Device Identifier Shelf Expiration Date Model / Serial / Lot Lens Intraoc 20.0 - [id number] - [id number] Implanted:Qty: 1 on 01/02/2020 by Guero Bell MD at OR [facility] Left: Eye BAUSCH & LOMB 07/03/2024 [id number] / [id number] / [id number] Lens Intraoc 20.0 - [id number] - [id number] Implanted:Qty: 1 on 01/16/2020 by Guero Bell MD at OR [facility] Right: Eye BAUSCH & LOMB 08/03/2024 [id number] / [id number] / [id number] documented as of this encounter Care Teams Sound Tester Relationship Specialty Start Date End Date Kennedy Brooks MD [address] [place] [address] PCP - General Family Medicine 04/23/18 documented as of this encounter
--- OUTSIDE RECORDS SUMMARY | 2024-01-17 10:40 | External Medical Summary | Summary of Care ---
Author Name Unknown Organization [facility] Address [address] [place] [address] Phone [phone] Care Team Providers Care Basket Assembler Name Role Phone Kennedy Brooks MD Primary Care Provider [phone] Reason for Visit * Reason Onset Date Comments Test Results 07/28/2023 Encounter Details Date Type Department Care Team (Late st Contact Info) Description 07/28/2023 Telephone Nutrition & Weight Management, [facility] [address] [facility] [address] [place] [address] Sallie Marrero PA-C [address] [facility] [place] [address] Test Results Allergies Active Allergy Reactions Criticality [...] night at bedtime . Active Saline Nasal [place] 0.65 % Nasal Solution Administer 1 [place] into nostril as needed (nasal dryness, epistaxis). [...] bedtime. 90 Tablet 3 05/04/2023 Active Nystatin 548612 UNIT/GM External Powder (Nystop) Apply topically to [...] Encounter - Anastacio Brown LPN - 08/03/2023 3:55 PM EDT Spoke with provider Left the pt a detailed message. * Telephone Encounter - Sallie Marrero PA-C - 08/03/2023 2:48 PM EDT I'm not sure what she means? I sent in a 90 day supply of wegovy last month to mail order Wegovy 0.5 MG/0.5ML Subcutaneous Solution Auto-injector (Semaglutide-Weight Management) 6 mL 0 06/28/2023 -- Sig - Route: Inject 0.5 mg under the skin once a week. - Subcutaneous Sent to pharmacy as: Wegovy 0.5 MG/0.5ML Subcutaneous Solution Auto-injector (Semaglutide-Weight Management) Class: ePrescribing Order: [id number] Date/Time Signed: 06/28/2023 08:47 * Telephone Encounter - Anastacio Brown LPN [...] 4 9:30 AM EDT Office Visit Cardiology, [facility] [address] [place] [address] Clementine Wang PA-C [address] [place] [address] 4 1:45 PM EDT Office Visit Orthopaedics [facility] [address] [place] [address] Hans Cruz, [address] [place] [address] 4 8:30 AM EDT [facility], [facility] [place] [address] Kim Piper, RN [address] [place] [address] 4 2:20 PM EDT Office Visit Orthopaedics [facility] [address] [place] [address] Jayce Curtis MD [address] [place] [address] 4 2:20 PM EDT Office Visit [facility] [address] [place] [address] Kennedy Brooks MD [address] [place] [address] 4 1:00 PM EDT Imaging Radiology, [address] [place] [address] 4 9:00 AM EDT Therapy Psychology, [facility] 200 [facility] [place] [address] Luz Carranza, [facility] [address] [facility] [place] [address] 4 1:30 PM EDT Telemedicine Nutrition & Weight Management, [facility] 132 [facility] [place] [address] [facility], Surgery Class Provider Mamta [address] [place] [address] 4 2:40 PM EDT Telemedicine Nutrition & Weight Management, [facility] [address] [place] [address] Chanda Bah PA-C [address] [place] [address] 4 1:50 PM EDT Nutrition Services Nutrition & Weight Management, [facility] [address] [place] [address] Laura Hinds RDN [address] [place] [address] 4 12:04 PM EDT Hospital Encounter OR [facility], Operating Room, [facility] - 4th Floor 400 [facility] [address] Jan Haynes, [address] [place] [address] 4 12:04 PM EDT - 4 12:35 PM EDT Surgery OR [facility], Operating Room, [facility] - 4th Floor [address] [place] [address] Jan Haynes, [address] [place] [address] ESOPHAGOGASTRODUODENOSCOPY (EGD), FLEXIBLE, TRANSORAL, DIAGNOSTIC 4 10:00 AM EDT Office Visit Sleep Disorders Ctr [facility] [address] [place] [address] Iwona Yanez CRNP [address] [place] [address] 4 11:40 AM EDT Office Visit Nephrology, [facility] [address] [place] [address] Joaquin Shelley MD [address] [place] [address] 4 11:00 AM EDT Office Visit Nutrition & Weight Management, [facility] [address] [place] [address] Sallie Marrero PA-C [address] [place] [address] 5 2:00 PM EST Nurse Only Ancillary Department, [place] [address] [facility] [address] [place], Nurse Annual Wellness [address] [facility] [place] [address] Scheduled Procedures Name Priority Associated Diagnoses Date/Ti [...] Additional history exists CKD HGB USE SMARTSET 12862 06/26/202406/26, 06/27/2023, 08/31/2022, Additional history exists CKD PHOS USE SMARTSET 29998 06/26/202406/05, 09/09/2020, 03/24/2020, Additional history exists HbA1c [...] this encounter Medical Devices Implanted Type Area Belt Splicer Device Identifier Shelf Expiration Date Model / Serial / Lot Lens Intraoc 20.0 - [id number] - [id number] Implanted:Qty: 1 on 01/02/2020 by Guero Bell MD at OR [facility] Left: Eye BAUSCH & LOMB 07/03/2024 [id number] / [id number] / [id number] Lens Intraoc 20.0 - [id number] - [id number] Implanted:Qty: 1 on 01/16/2020 by Guero Bell MD at OR [facility] Right: Eye BAUSCH & LOMB 08/03/2024 [id number] / [id number] / [id number] documented as of this encounter Care Teams Basket Assembler Relationship Specialty Start Date End Date Kennedy Brooks MD [address] [place] [address] PCP - General Family Medicine 04/23/18 documented as of this encounter
--- OUTSIDE RECORDS SUMMARY | 2024-01-17 10:40 | External Medical Summary | Summary of Care ---
Author Name Unknown Organization [facility] Address [address] [place] [address] Phone [phone] Care Team Providers Care Tar Pot Man Name Role Phone Kennedy Brooks MD Primary Care Provider Reason for Visit * Reason Onset Date Comments Test Results 07/28/2023 Encounter Details Date Type Department Care Team (Late st Contact Info) Description 07/28/2023 Telephone Nutrition & Weight Management, [facility] [address] [place] [address] Sallie Marrero PA-C [address] [place] [address] Test Results Allergies Active Allergy Reactions Criticality [...] night at bedtime . Active Saline Nasal [place] 0.65 % Nasal Solution Administer 1 [place] into nostril as needed (nasal dryness, epistaxis). [...] bedtime. 90 Tablet 3 05/04/2023 Active Nystatin 746083 UNIT/GM External Powder (Nystop) Apply topically to [...] Department Care Team (Latest Contact Info) Description 9:30 AM EDT Office Visit Cardiology, [facility] [address] [place] [address] Clementine Wang PA-C 132 [place] [address] 4 1:45 PM EDT Office Visit Orthopaedics [facility] [address] [facility] [place] [address] Hans Cruz DO [address] [place] [address] 4 8:30 AM EDT [facility], [facility] [address] [place] [address] Kim Piper, RN [address] [place] [address] 4 2:20 PM EDT Office Visit [facility] [address] [place] [address] Jayce Curtis MD [address] [place] [address] 4 2:20 PM EDT Office Visit [facility] [address] [place] [address] Kennedy Brooks MD [address] [place] [address] 4 1:00 PM EDT Imaging Radiology, [place] [address] [facility] [place] [address] 4 9:00 AM EDT Therapy Psychology, [facility] [address] [place], [place] [address] Luz Carranza, Pr[place]ot [address] [place] [address] 4 1:30 PM EDT Telemedicine Nutrition & [facility] Management, [facility] [address] [place] [address] [facility], Surgery Class Provider [facility] [address] [place] [address] 4 2:40 PM EDT Telemedicine Nutrition & Weight Management, [facility] [address] [place] [address] Chanda Bah PA-C [address] [place] [address] 4 1:50 PM EDT Nutrition Services Nutrition & Weight Management, [facility] [address] [place] [address] Laura Hinds RDN [address] [place] [address] 4 12:04 PM EDT Hospital Encounter OR [facility], Operating Room, [facility] - 4th Floor [address] [place] [address] Jan Haynes, DO [address] [place] [address] 4 12:04 PM EDT - 4 12:35 PM EDT Surgery OR [facility], Operating Room, [facility] - 4th Floor [address] [place] [address] Jan Haynes, DO [address] [place] [address] ESOPHAGOGASTRODUODENOSCOPY (EGD), FLEXIBLE, TRANSORAL, DIAGNOSTIC 4 10:00 AM EDT Office Visit [facility] Disorders Ctr [facility] [address] [place] [address] Iwona Yanez CRNP [address] [place] [address] 4 11:40 AM EDT Office Visit Nephrology, [place] [address] [place] [address] Joaquin Shelley MD [address] [place] [address] 4 11:00 AM EDT Office Visit Nutrition & Weight Management, [facility] [address] [facility] [place] [address] Sallie Marrero PA-C [address] [place] [address] 5 2:00 PM EST Nurse Only Ancillary Department, [place] [address] [place] [address] [place], Nurse Annual Wellness [address] [place] [address] Scheduled Procedures Name Priority Associated Diagnoses Date/Ti [...] Additional history exists CKD HGB USE SMARTSET 29837 06/26/202406/26, 06/27/2023, 08/31/2022, Additional history exists CKD PHOS USE SMARTSET 60464 06/26/202406/05, 09/09/2020, 03/24/2020, Additional history exists HbA1c [...] this encounter Medical Devices Implanted Type Area Steam Setter Device Identifier Shelf Expiration Date Model / Serial / Lot Lens Intraoc 20.0 - [id number] - [id number] Implanted:Qty: 1 on 01/02/2020 by Guero Bell MD at OR [facility] Left: Eye BAUSCH & LOMB 07/03/2024 [id number] / [id number] / [id number] Lens Intraoc 20.0 - [id number] - [id number] Implanted:Qty: 1 on 01/16/2020 by Guero Bell MD at OR [facility] Right: Eye BAUSCH & LOMB 08/03/2024 [id number] / [id number] / [id number] documented as of this encounter Care Teams Tar Pot Man Relationship Specialty Start Date End Date Kennedy Brooks MD [address] [place] [address] PCP - General Family Medicine 04/23/18 documented as of this encounter
--- OUTSIDE RECORDS SUMMARY | 2024-01-17 10:40 | External Medical Summary | Summary of Care ---
Author Name Unknown Organization [facility] Address [address] [place] [address] Phone [phone] Care Team Providers Care Animal Handler Name Role Phone Kennedy Brooks MD Primary Care Provider [phone] Reason for Visit * Reason Onset Date Comments Test Results 07/28/2023 Encounter Details Date Type Department Care Team (Late st Contact Info) Description 07/28/2023 Telephone Nutrition & Weight Management, [facility] [address] [place] [address] Sallie Marrero PA-C [address] [place] [address] Test Results Allergies Active Allergy Reactions Criticality [...] night at bedtime . Active Saline Nasal [place] 0.65 % Nasal Solution Administer 1 [place] into nostril as needed (nasal dryness, epistaxis). [...] bedtime. 90 Tablet 3 05/04/2023 Active Nystatin 565258 UNIT/GM External Powder (Nystop) Apply topically to [...] Solution Auto-injector (Semaglutide-Weight Management) Class: ePrescribing Order: [id number] Date/Time Signed: 06/28/2023 08:47 * Telephone Encounter [...] 4 9:30 AM EDT Office Visit Cardiology, [facility] [address] [place] [address] Clementine Wang PA-C [address] [place] [address] 4 1:45 PM EDT Office Visit Orthopaedics [facility] [address] [place] [address] Hans Cruz DO [address] [place] [address] 4 8:30 AM EDT Home Visit [facility] [address] [place] [address] Kim Piper, RN [address] [place] [address] 4 2:20 PM EDT Office Visit Orthopaedics [place] 16 [facility] [place] [address] Jayce Curtis MD [address] [place] [facility] [place] [address] 4 2:20 PM EDT Office Visit Family [facility] [address] [place] [address] Kennedy Brooks MD [address] [place] [address] 4 1:00 PM EDT Imaging Radiology, [address] [place] [address] 4 9:00 AM EDT Therapy Psychology, [facility] [address] [facility] [place] [address] Luz Carranza, PsyD [address] [facility] [place] [address] 4 1:30 PM EDT Telemedicine Nutrition & Weight Management, [facility] 132 [facility] [place] [address] [facility], Surgery Class Provider Mamta 132 [facility] [place] [address] 4 2:40 PM EDT Telemedicine Nutrition & Weight Management, [facility] [address] [place] [address] Chanda Bah PA-C [address] [place] [address] 4 1:50 PM EDT Nutrition Services Nutrition & Weight Management, [facility] [address] [place] [address] Laura Hinds RDN [address] [place] [address] 4 12:04 PM EDT Hospital Encounter OR [facility], Operating Room, [place] - 4th Floor [address] [place] [address] Jan Haynes, DO [address] [place] [address] 4 12:04 PM EDT - 4 12:35 [address] Surgery [address] [facility], Operating Room, [place] - 4th Floor [address] [place] [address] Jan Haynes, DO [address] [place] [address] ESOPHAGOGASTRODUODENOSCOPY (EGD), FLEXIBLE, TRANSORAL, DIAGNOSTIC 4 10:00 AM EDT Office Visit Sleep Disorders Ctr [facility] [address] [place] [phone] Iwona Yanez CRNP [address] [place] [address] 4 11:40 AM EDT Office Visit Nephrology, [facility] [address] [place] [address] Joaquin Shelley MD [address] [place] [address] 4 11:00 AM EDT Office Visit Nutrition & Weight Management, [facility] [address] [place] [address] Sallie Marrero PA-C [address] [place] [address] 2:00 PM EST Nurse Only Ancillary Department, [place] [address] [facility] [place] [address] Donna, Nurse Annual Wellness [address] [facility] [place] [address] Scheduled Procedures Name Priority Associated Diagnoses Date/Ti [...] Additional history exists CKD HGB USE SMARTSET 43367 06/26/202406/26, 06/27/2023, 08/31/2022, Additional history exists CKD PHOS USE SMARTSET 12973 06/26/202406/05, 09/09/2020, 03/24/2020, Additional history exists HbA1c [...] this encounter Medical Devices Implanted Type Area Car Wiper Device Identifier Shelf Expiration Date Model / Serial / Lot Lens Intraoc 20.0 - [id number] - [id number] Implanted:Qty: 1 on 01/02/2020 by Guero Bell MD at OR [facility] Left: Eye BAUSCH & LOMB 07/03/2024 [id number] / [id number] / [id number] Lens Intraoc 20.0 - [id number] - [id number] Implanted:Qty: 1 on 01/16/2020 by Guero Bell MD at OR [facility] Right: Eye BAUSCH & LOMB 08/03/2024 [id number] / [id number] / [id number] documented as of this encounter Care Teams Animal Handler Relationship Specialty Start Date End Date Kennedy Brooks MD [address] [place] [facility] [place] [address] PCP - General Family Medicine 04/23/18 documented as of this encounter
--- OUTSIDE RECORDS SUMMARY | 2024-01-17 10:41 | External Medical Summary | Summary of Care ---
Author Name Unknown Organization [facility] Address [address] [place] [address] Phone [phone] Care Team Providers Care Nursing Agency Manager Name Role Phone Kennedy Brooks MD Primary Care Provider [phone] Reason for Visit * Reason Onset Date Comments Test Results 07/28/2023 Encounter Details Date Type Department Care Team (Late st Contact Info) Description 07/28/2023 Telephone Nutrition & Weight Management, [facility] [address] [place] [address] Sallie Marrero PA-C [address] [place] [address] Test Results Allergies Active Allergy Reactions Criticality [...] night at bedtime . Active Saline Nasal [place] 0.65 % Nasal Solution Administer 1 [place] into nostril as needed (nasal dryness, epistaxis). [...] bedtime. 90 Tablet 3 05/04/2023 Active Nystatin 258468 UNIT/GM External Powder (Nystop) Apply topically to [...] 4 9:30 AM EDT Office Visit Cardiology, [facility] [address] [place] [address] Clementine Wang PA-C [address] [place] [address] 4 1:45 PM EDT Office Visit Orthopaedics [facility] [address] [place] [address] Hans Cruz DO [address] [place] [address] 4 8:30 AM EDT Home Visit [facility] [address] [place] [address] Kim Piper, RN [address] [place] [address] 4 2:20 PM EDT Office Visit Orthopaedics [place] 16 [place] [address] Jayce Curtis MD [address] [place] [facility] [place] [address] 4 2:20 PM EDT Office Visit Family [facility] [address] [place] [address] Kennedy Brooks MD [address] [place] [address] 4 1:00 PM EDT Imaging Radiology, [address] [place] [address] 4 9:00 AM EDT Therapy Psychology, [facility] 200 [facility] [place] [address] Luz Carranza, Ps [address] [place] [address] 4 1:30 PM EDT Telemedicine Nutrition & Weight Management, [facility] 132 [facility] [place] [address] [facility], Surgery Class Provider Mamta 132 [facility] [place] [address] 4 2:40 PM EDT Telemedicine Nutrition & Weight Management, [facility] [address] [place] [address] Chanda Bah PA-C 132 [facility] [place] [address] 4 1:50 PM EDT Nutrition Services Nutrition & Weight Management, [facility] [address] [place] [address] Laura Hinds RDN [address] [place] [address] 4 1:09 PM EDT Hospital Encounter OR [facility], Operating Room, [facility] - 4th Floor [address] [place] [address] Jan Haynes, DO [address] [place] [address] 4 1:09 PM EDT - 4 1:40 PM EDT Surgery OR [facility], Operating Room, [facility] - 4th Floor [address] [place] [address] Jan Haynes, DO [address] [place] [address] ESOPHAGOGASTRODUODENOSCOPY (EGD), FLEXIBLE, TRANSORAL, DIAGNOSTIC 4 10:00 AM EDT Office Visit Sleep Disorders Ctr [facility] [address] [place] [phone] Iwona Yanez CRNP [address] [place] [address] 4 11:40 AM EDT Office Visit Nephrology, [facility] [address] [place] [address] Joaquin Shelley MD [address] [place] [address] 4 11:00 AM EDT Office Visit Nutrition & Weight Management, [facility] [address] [place] [address] Sallie Marrero PA-C [address] [place] [address] 2:00 PM EST Nurse Only Ancillary Department, [place] [address] [facility] [place] [address] Donna, Nurse Annual Wellness [address] [facility] [place] [address] Scheduled Procedures Name Priority Associated Diagnoses Date/Ti [...] Additional history exists CKD HGB USE SMARTSET 51329 06/26/202406/26, 06/27/2023, 08/31/2022, Additional history exists CKD PHOS USE SMARTSET 58333 06/26/202406/05, 09/09/2020, 03/24/2020, Additional history exists HbA1c 06/26/2024 06/27/2023, 11/18/2010 TSH 06/26/2024 06/27/2023, 05/05, 09/23/2021, Additional history exists Lipid Panel 06/26/2028 06/27/2023, 0706/2022, 05/20/2021, Additional history exists DTaP,Tdap,and Td Vaccines [...] this encounter Medical Devices Implanted Type Area Tobacco Sweeper Device Identifier Shelf Expiration Date Model / Serial / Lot Lens Intraoc 20.0 - [id number] - [id number] Implanted:Qty: 1 on 01/02/2020 by Guero Bell MD at OR [facility] Left: Eye BAUSCH & LOMB 07/03/2024 [id number] / [id number] / [id number] Lens Intraoc 20.0 - [id number] - [id number] Implanted:Qty: 1 on 01/16/2020 by Guero Bell MD at OR [facility] Right: Eye BAUSCH & LOMB 08/03/2024 [id number] / [id number] / [id number] documented as of this encounter Care Teams Nursing Agency Manager Relationship Specialty Start Date End Date Kennedy Brooks MD [address] [place] [address] PCP - General Family Medicine 04/23/18 documented as of this encounter
--- OUTSIDE RECORDS SUMMARY | 2024-01-17 10:41 | External Medical Summary | Summary of Care ---
Author Name Unknown Organization [facility] Address [address] [place] [address] Phone [phone] Care Team Providers Care Steel Loader Name Role Phone Kennedy Brooks MD Primary Care Provider [phone] Reason for Visit * Reason Onset Date Comments Referral 08/01/2023 Encounter Details Date Type Department Care Team ([facility] st Contact Info) Description 08/01/2023 Telephone [facility]OTIC WELDER [address] [place] [address] [facility] Referral Allergies Active Allergy Reactions Criticality Noted Date Comments Paroxetine Hydrochloride Hives 06/07/2007 documented as of this encounter (statuses as of 08/01/2023) Medications Medication Sig Dispensed Refills Start Date [...] night at bedtime . Active Saline Nasal [place] 0.65 % Nasal Solution Administer 1 [place] into nostril as needed (nasal dryness, epistaxis). [...] bedtime. 90 Tablet 3 05/04/2023 Active Nystatin 225825 UNIT/GM External Powder (Nystop) Apply topically to [...] as of this encounter (statuses as of 08/01/2023) Active Problems Problem Noted Date Diagnosed Date [...] as of this encounter (statuses as of 08/01/2023) Resolved Problems Problem Noted Date Diagnosed Date [...] as of this encounter (statuses as of 08/01/2023) Immunizations Name Administration Dates Next Due COVID-19 mRNA, LNP-s, No Pre serve, 2-Dose Series (Source4Style) 01/08/2022,05/06/2021 COVID-19, MRNA-LNP, 23-24, P F, 50 MCG/0.5 mL, 12 YRS AND ABOVE, IM (MODERNA-Spikevax) 02/28/2023 Pneumococcal Conjugate Vaccine, 20-valent (Prevn ar20) 09/16/2022 Pneumococcal Polysaccharide PPV23 (Pneumovax) Seasonal Influenza, Quadrivalent Hd (Fluzone Hd) 02/22/2023 TD, Preservative Free 10/29/2019 TDAP (age 11 and older)(Adacel) 08/21/2007 Zoster Vaccine Recombinant (Shingrix) 06/04/2020 ,03/03/2020 [...] services covered by her insurance. Outcome: called [phone] and had to leave a VM for the member. If call is returned please assist with the referral resources. 2nd attempt call will be on 08/04/2023 documented in this encounter Plan of Treatment Upcoming Encounters Date Type Department Care Team (Latest Contact Info) Description 4 9:30 AM EDT Office Visit Cardiology, [facility] [address] [place] [address] Clementine Wang PA-C [address] [place] [address] 4 1:45 PM EDT Office Visit Orthopaedics [facility] [address] [place] [place] [address] Hans Cruz DO [address] [place] [address] 4 8:30 AM EDT Home Visit [facility] [address] [place] [address] Kim Piper, RN [address] [place] [address] 4 2:20 PM EDT [facility] [address] [place] [address] Jayce Curtis MD [address] [place] [address] 4 2:20 PM EDT Office Visit Family [facility] [address] [place] [address] Kennedy Brooks MD [address] [place] [address] 4 1:00 PM EDT Imaging Radiology, [place] [address] [facility] [place] [address] 4 9:00 AM EDT Therapy Psychology, [facility] [address] [facility] [place] [address] Luz Carranza, [facility] [address] [place] [address] 4 1:30 PM EDT Telemedicine Nutrition & Weight Management, [facility] [address] [place] [address] [facility], Surgery Class Provider [facility] [address] [place] [address] 4 2:40 PM EDT Telemedicine Nutrition & Weight Management, [facility] [address] [place] [address] Chanda Bah PA-C [address] [place] [address] 4 1:50 PM EDT Nutrition Services Nutrition & Weight Management, [facility] [address] [place] [address] Laura Hinds RDN [address] [place] [address] 4 1:09 PM EDT Hospital Encounter OR [facility], Operating Room, [facility] - 4th Floor [address] [place] [address] Jan Haynes DO [address] [place] [address] 4 1:09 PM EDT - 4 1:40 PM EDT Surgery OR [facility], Operating Room, [facility] - 4th Floor [address] [place] [address] Jan Haynes, [address] [place] [address] ESOPHAGOGASTRODUODENOSCOPY (EGD), FLEXIBLE, TRANSORAL, DIAGNOSTIC 4 10:00 AM EDT Office Visit Sleep Disorders Ctr [facility] 132 [facility] [place] [phone] Iwona Yanez CRNP [address] [place] [address] 4 11:40 AM EDT Office Visit Nephrology, [facility] [address] [facility] [place] [address] Joaquin Shelley MD [address] [facility] [place] [address] 4 11:00 AM EDT Office Visit Nutrition & Weight Management, [facility] 132 [facility] [place] [address] Sallie Marrero PA-C 132 [facility] [place] [address] 5 2:00 PM EST Nurse Only Ancillary Department, [address] [address] [place], Nurse Annual Wellness [address] [place] [address] Scheduled Procedures Name Priority Associated Diagnoses Date/Ti [...] Additional history exists CKD HGB USE SMARTSET 01499 06/26/202406/26, 06/27/2023, 08/31/2022, Additional history exists CKD PHOS USE SMARTSET 82297 06/26/202406/05, 09/09/2020, 03/24/2020, Additional history exists HbA1c [...] this encounter Medical Devices Implanted Type Area Peeled Potato Inspector Device Identifier Shelf Expiration Date Model / Serial / Lot Lens Intraoc 20.0 - [id number] - [id number] Implanted:Qty: 1 on 01/02/2020 by Guero Bell MD at OR [facility] Left: Eye BAUSCH & LOMB 07/03/2024 [id number] / [id number] / [id number] Lens Intraoc 20.0 - [id number] - [id number] Implanted:Qty: 1 on 01/16/2020 by Guero Bell MD at OR [facility] Right: Eye BAUSCH & LOMB 08/03/2024 [id number] / [id number] / [id number] documented as of this encounter Care Teams Steel Loader Relationship Specialty Start Date End Date Kennedy Brooks MD [address] [place] [address] PCP - General Family Medicine 04/23/18 documented as of this encounter
--- OUTSIDE RECORDS SUMMARY | 2024-01-17 10:41 | External Medical Summary | Summary of Care ---
Author Name Unknown Organization [facility] Address [address] [place] [address] Phone [phone] Care Team Providers Care Fun House Attendant Name Role Phone Kennedy Brooks MD Primary Care Provider [phone] Reason for Visit * Reason Onset Date Comments Test Results 07/28/2023 Encounter Details Date Type Department Care Team (Late st Contact Info) Description 07/28/2023 Telephone Nutrition & Weight Management, [facility] [address] [place] [address] Sallie Marrero PA-C [address] [place] [address] Test Results Allergies Active Allergy Reactions Criticality [...] night at bedtime . Active Saline Nasal [place] 0.65 % Nasal Solution Administer 1 [place] into nostril as needed (nasal dryness, epistaxis). [...] bedtime. 90 Tablet 3 05/04/2023 Active Nystatin 916893 UNIT/GM External Powder (Nystop) Apply topically to [...] encounter Miscellaneous Notes * Telephone Encounter - Melissa Barreto CMA [...] 4 9:30 AM EDT Office Visit Cardiology, [facility] [address] [place] [address] Clementine Wang PA-C [address] [place] [address] 4 1:45 PM EDT Office Visit Orthopaedics [facility] [address] [place] [address] Hans Cruz DO [address] [place] [address] 4 8:30 AM EDT Home Visit [facility] [address] [place] [address] Kim Piper, RN [address] [place] [address] 4 2:20 PM EDT [facility] [address] [place] [address] Jayce Curtis MD [address] [place] [address] 4 2:20 PM EDT Office Visit [facility] [address] [place] [address] Kennedy Brooks MD [address] [facility] [address] 4 1:00 PM EDT Imaging Radiology, [facility] [address] [facility] [place] [address] 4 9:00 AM EDT Therapy Psychology, [facility] 200 [facility] [place] [address] Luz Carranza, [facility] [address] [facility] [place] [address] 4 1:30 PM EDT Telemedicine Nutrition & Weight Management, [facility] [address] [place] [address] [facility], Surgery Class Provider [facility] [address] [place] [address] 4 2:40 PM EDT Telemedicine Nutrition & Weight Management, [facility] [address] [place] [address] Chanda Bah PA-C [address] [place] [address] 4 1:50 PM EDT Nutrition Services Nutrition & Weight Management, [facility] [address] [place] [address] Laura Hinds RDN [address] [place] [address] 4 1:09 PM EDT Hospital Encounter OR [facility], Operating Room, [facility] - 4th Floor [address] [place] [address] Jan Haynes DO [address] [place] [address] 4 1:09 PM EDT - 4 1:40 PM EDT Surgery OR [facility], Operating Room, [facility] - 4th Floor [address] [place] [address] Jan Haynes DO [address] [place] [address] ESOPHAGOGASTRODUODENOSCOPY (EGD), FLEXIBLE, TRANSORAL, DIAGNOSTIC 4 10:00 AM EDT Office Visit Sleep Disorders Ctr [facility] [address] [place] [phone] Iwona Yanez CRNP [address] [place] [address] 4 11:40 AM EDT Office Visit Nephrology, [facility] 200 [facility] [place] [address] Joaquin Shelley MD 200 [facility] [place] [address] 4 11:00 AM EDT Office Visit Nutrition & Weight Management, [facility] [place] [address] Sallie Marrero PA-C 132 [facility] [place] [address] 5 2:00 PM EST Nurse Only Ancillary Department, [place] [address] [facility] [place] [address] [place], Nurse Annual Wellness [address] [place] [address] Scheduled Procedures Name Priority Associated Diagnoses Date/Ti [...] Additional history exists CKD HGB USE SMARTSET 77393 06/26/202406/26, 06/27/2023, 08/31/2022, Additional history exists CKD PHOS USE SMARTSET 60395 06/26/202406/05, 09/09/2020, 03/24/2020, Additional history exists HbA1c [...] this encounter Medical Devices Implanted Type Area Hospital Receiving Clerk Device Identifier Shelf Expiration Date Model / Serial / Lot Lens Intraoc 20.0 - [id number] - [id number] Implanted:Qty: 1 on 01/02/2020 by Guero Bell MD at OR [facility] Left: Eye BAUSCH & LOMB 07/03/2024 [id number] / [id number] / [id number] Lens Intraoc 20.0 - [id number] - [id number] Implanted:Qty: 1 on 01/16/2020 by Guero Bell MD at OR [facility] Right: Eye BAUSCH & LOMB 08/03/2024 [id number] / [id number] / [id number] documented as of this encounter Care Teams Fun House Attendant Relationship Specialty Start Date End Date Kennedy Brooks MD [address] [place], [place] [id number] PCP - General Family Medicine 04/23/18 documented as of this encounter
--- OUTSIDE RECORDS SUMMARY | 2024-01-17 10:41 | External Medical Summary | Summary of Care ---
Author Name Unknown Organization [facility] Address [address] [place] [address] Phone [phone] Care Team Providers Care Pure Culture Operator Name Role Phone Kennedy Brooks MD Primary Care Provider [phone] Reason for Visit * Reason Comments Follow Up Left knee Encounter Details Date Type Department Care Team (Latest Contact Info) Description 07/25/2023 2:30 PM EDT Office Visit Orthopaedics [facility] [address] [place] [address] Hans Cruz DO [address] [place] [address] Primary osteoarthritis of left knee* Allergies Active Allergy Reactions Criticality Noted Date Comments Paroxetine Hydrochloride Hives 06/07/2007 documented as of this encounter (statuses as of 07/25/2023) Medications Medication Sig Dispensed Refills Start Date [...] night at bedtime . Active Saline Nasal Balaton 0.65 % Nasal Solution Administer 1 Balaton into nostril as needed (nasal dryness, epistaxis). [...] bedtime. 90 Tablet 3 05/04/2023 Active Nystatin 842490 UNIT/GM External Powder (Nystop) Apply topically to [...] 7-12 cm H2O 1 Each 07/06/2023 Active Hospital, Clinic, or Other Facility Administered Medication Ordered Dose Route Frequency Start Date End Date Status lidocaine 1% 1 mL - triamcinolone acetonide 40 mg/mL 1 mL inj 2 mLIndications:Primary osteoarthritis of left knee 2 mL IJ ONCE 07/25/2023 07/25/2023 Discontinued documented as of this encounter (statuses as of 07/25/2023) Active Problems Problem Noted Date Diagnosed Date [...] as of this encounter (statuses as of 07/25/2023) Resolved Problems Problem Noted Date Diagnosed Date [...] as of this encounter (statuses as of 07/25/2023) Immunizations Name Administration Dates Next Due COVID-19 [...] as of this encounter Progress Notes * Hans Cruz DO - 07/25/2023 2:34 PM EDT Paige Hendricks [id number] Paige Hendricks is a 68 year old female who presents for f/u to [facility] for LEFT knee pain. Paige Hendricks is here unaccompanied Date of Injury: pain x years TODAY: She just completed Gelsyn series 07/10/2023. Reports that her right knee is feeling well. Her left knee is only 25-50% better and feels as if it is swollen" She continues to try to be active. Lose weight. In his followed for medically managed weight loss as well. Of note she has a TKA consult 08/21/2023, she is aware that she has not yet at goal BMI. Previous knee injuries include: -no previous knee injuries or surgeries ROS EXAM:Constitional: No change in weight, No weakness, No fatigue and No fevers, sweats, or chills Patient Active Problem List Diagnosis ADVANCE DIRECTIVE [...] 45.0 to 49.9 in adult (HCC) Prediabetes Current Outpatient Medications Medication Sig Dispense Refill [...] every night at bedtime . Saline Nasal Balaton 0.65 % Nasal Solution Administer 1 Balaton into nostril as needed (nasal dryness, epistaxis). [...] mouth at bedtime. 90 Tablet 3 Nystatin 344755 UNIT/GM External Powder (Nystop) Apply topically to [...] at noon and 1 Capsule before bedtime. Wegovy 0.5 MG/0.5ML Subcutaneous Solution Auto-injector (Semaglutide-Weight Management) Inject 0.5 mg under the skin once a week. 6 mL 0 oxygen IN GAS 2 LPM bled through auto CPAP 7-12 cm H2O 1 Each 0 No current facility-administered medications for this visit. Hemoglobin AIC Results: Lab Results Component Value Date/Time [facility]IN [facility]C [facility] 5[facility]9 (H) 06/27/2023 02:59 PM HEMOGLOBIN A1C - [facility] 5.7 11/18/2010 11:07 AM Physical Exam General: in no acute distress, conversant, mild anxious Mood and Affect: normal Gait and Station: antalgic Peripheral pulses: normal in affected extremity (s) Skin examination: normal on affect extremity (s) Knee Exam, LEFT Effusion: Trace on the left verified by ultrasound Palpation: tenderness to palpation at medial joint line on the LEFT ROM: R - Flexion - 110 degrees, Extension - 0 degrees L - Flexion - 110 degrees, Extension -0 degrees Strength is age-appropriate no significant deficits R- Strength: Extension - 5/5 Flexion - 5/5 L - Strength: Extension - 5/5 Flexion - 5/5 Radiology (I have personally reviewed films done 07/18/23: LEFT knee: Tricompartmental osteophytosis. Moderate to severe medial and patellofemoral joint space narrowing. AP: We will give the hyaluronic acids little more time to work. No effusion that requires draining. Didreview [id number] Voltaren gel. We will see back in 2 weeks if needed. No procedures were performed today. Primary osteoarthritis of left knee (Primary) - POINT OF CARE US MAJOR JOINT INJECTION, ORTHO Hans Cruz DO, MBA, FAAFP, RMSK [facility] Sports Political ConsultantPlug Cutter Primary Care Sports Medicine Team Physician [facility] Office locations: Orthopaedics [address] [address] [address] [facility] [address] documented in this encounter Nursing Notes * Samantha Ram MED ASSIST - 07/25/2023 2:28 PM EDT Here for left knee aspiration and inj. documented in this encounter Plan of Treatment Upcoming Encounters Date Type Department Care Team (Latest Contact Info) Description 4 10:30 AM EDT Imaging Radiology [facility] [address] [place] [address] 4 10:30 AM EDT Imaging Radiology[address] [address] 4 8:30 AM EDT Therapy Psychology, [facility] [address] [facility] [place] [address] Luz Carranza, [facility] [address] [facility] [place] [address] 4 9:30 AM EDT Office Visit Cardiology, [facility] [address] [place] [address] Clementine Wang PA-C [address] [place] [address] 4 1:45 PM EDT Office Visit Orthopaedics [facility] [address] [place] [address] Hans Cruz DO [address] [place] [address] 4 8:30 AM EDT Home Visit [facility], [facility] [place] [address] Kim Piper RN [address] [place] [address] 4 2:20 PM EDT Office Visit Orthopaedics [facility] [address] [place] [id number] Jayce Curtis MD [address] [place] [address] 4 2:20 PM EDT Office Visit Family [facility] [address] [place] [id number] Kennedy Brooks MD [address] [place] [address] 4 1:00 PM EDT Imaging Radiology, [address] [address] 4 1:30 PM EDT Telemedicine Nutrition & Weight Management, [facility] [address] [facility] [place] [address] [facility], Surgery Class Provider Mamta [address] [facility] [place] [address] 4 2:40 PM EDT Telemedicine Nutrition & Weight Management, [facility] [address] [facility] [place] [address] Chanda Bah PA-C [address] [place] [address] 4 1:50 PM EDT Nutrition Services Nutrition & Weight Management, [facility] [address] [place] [address] Laura Hinds RDN [address] [place] [address] 4 1:09 PM EDT Hospital Encounter OR [facility], Operating Room, [facility] - 4th Floor [address] [facility] [place] [address] Jan Haynes, DO [address] [place] [address] 4 1:09 PM EDT - 4 1:40 PM EDT Surgery OR [facility], Operating Room, [facility] - 4th Floor [address] [place] [address] Jan Haynes, DO [address] [place] [address] ESOPHAGOGASTRODUODENOSCOPY (EGD), FLEXIBLE, TRANSORAL, DIAGNOSTIC 4 10:00 AM EDT Office Visit Sleep Disorders Ctr [facility] [address] [phone] Iwona Yanez CRNP [address] [place] [address] 4 11:40 AM EDT Office Visit Nephrology, [facility] [address] [place] [address] Joaquin Shelley MD [address] [place] [address] 4 11:00 AM EDT Office Visit Nutrition & Weight Management, [facility] [address] [place] [address] Sallie Marrero PA-C [address] [place] [address] 2:00 PM EST Nurse Only Ancillary Department, [place] [address] [facility] [place] [address] Donna, Nurse Annual Wellness [address] [facility] [place] [address] Scheduled Orders Name Type Priority Associated Diagnoses Orde r Schedule POINT OF CARE US MAJOR JOINT INJECTION, ORTHO Medical Imaging Routine Primary osteoarthritis of left knee Ordered: 07/25/2023 Scheduled Procedures Name Priority Associated Diagnoses Date/Ti [...] Additional history exists CKD HGB USE SMARTSET 29754 06/26/202406/26, 06/27/2023, 08/31/2022, Additional history exists CKD PHOS USE SMARTSET 57395 06/26/202406/05, 09/09/2020, 03/24/2020, Additional history exists HbA1c [...] encounter Medical Devices Implanted Type Area Quality Compliance Consultant Device Identifier Shelf Expiration Date Model / Serial / Lot Lens Intraoc 20.0 - [id number] - [id number] Implanted:Qty: 1 on 01/02/2020 by Guero Bell MD at OR [facility] Left: Eye [employer] 07/03/2024 [id number] / [id number] / [id number] Lens Intraoc 20.0 - [id number] - [id number] Implanted:Qty: 1 on 01/16/2020 by Guero Bell MD at OR [facility] Right: Eye [employer] 08/03/2024 [id number] / [id number] / [id number] documented as of this encounter Visit Diagnoses Diagnosis Primary osteoarthritis of left knee- Primary Primary localized osteoarthrosis, lower leg Morbid obesity due to excess calories (HCC) documented in this encounter Care Teams Pure Culture Operator Relationship Specialty Start Date End Date Kennedy Brooks MD [address] [place] [address] PCP - General Family Medicine 04/23/18 documented as of this encounter
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
--- OUTSIDE RECORDS SUMMARY | 2024-01-17 10:41 | External Medical Summary | Summary of Care ---
Author Name Unknown Organization [facility] Address [address] [place] [address] Phone [phone] Care Team Providers Care Sediment Remediation Consultant Name Role Phone Kennedy Brooks MD Primary Care Provider [phone] Reason for Visit * Reason Onset Date Comments [facility]: Maintenance 07/29/2023 Encounter Details Date Type Department Care Team ([facility] st Contact Info) Description 07/29/2023 Telephone [facility], [facility] [address] [facility] [place] [address] [facility], Nurse [facility] [address] [place] [address] [facility]: Maintenance Allergies Active Allergy Reactions Criticality Noted Date Comments Paroxetine Hydrochloride Hives 06/07/2007 documented as of this encounter (statuses as of 07/29/2023) Medications Medication Sig Dispensed Refills Start Date [...] night at bedtime . Active Saline Nasal [place] 0.65 % Nasal Solution Administer 1 [place] into nostril as needed (nasal dryness, epistaxis). [...] bedtime. 90 Tablet 3 05/04/2023 Active Nystatin 141564 UNIT/GM External Powder (Nystop) Apply topically to [...] as of this encounter (statuses as of 07/29/2023) Active Problems Problem Noted Date Diagnosed Date [...] as of this encounter (statuses as of 07/29/2023) Resolved Problems Problem Noted Date Diagnosed Date [...] as of this encounter (statuses as of 07/29/2023) Immunizations Name Administration Dates Next Due COVID-19 [...] encounter Miscellaneous Notes * Telephone Encounter - Lissy Aponte RN - 07/29/2023 3:13 PM EDT Images from the original note were not included. [facility] Remote Patient Monitoring Unable to contact patient: Trigger type: Left message requesting a call back CRISTEL Dumont Specimen Accessioner [facility] documented in this encounter Plan of Treatment Upcoming Encounters Date Type Department Care Team (Latest Contact Info) Description 4 8:30 AM EDT Therapy Psychology, [facility] [address] [facility] [place] [address] Luz Carranza, Ps [address] [facility] [place] [address] 4 9:30 AM EDT Office Visit Cardiology, [facility] [place] [address] Clementine Wang PA-C [address] [facility] [place] [address] 4 1:45 PM EDT Office Visit Orthopaedics [facility] [address] [facility] [place] [address] Hans Cruz DO [address] [facility] [address] 4 8:30 AM EDT Home Visit [facility] [address] [place] [address] Kim Piper RN [address] [facility] [place] [address] 4 2:20 PM EDT Office Visit Orthopaedics [facility] [address] [place] [address] Jayce Curtis MD [address] [facility] [place] [id number] 4 2:20 PM EDT Office Visit [address] [address] Kennedy Brooks MD [address] [facility] [place] [address] 4 1:00 PM EDT Imaging Radiology, [place] [address] [facility] [address] 4 1:30 PM EDT Telemedicine Nutrition & Weight Management, [facility] [address] [place] [address] [facility], Surgery Class Provider [facility] [address] [place] [address] 4 2:40 PM EDT Telemedicine Nutrition & Weight Management, [facility] [address] [place] [address] Chanda Bah PA-C [address] [place] [address] 4 1:50 PM EDT Nutrition Services Nutrition & Weight Management, [facility] [address] [place] [address] Laura Hinds RDN [address] [place] [address] 4 1:09 PM EDT Hospital Encounter [facility], Operating Room, [facility] - 4th Floor [address] [place] [address] Jan Haynes, [address] [place] [address] 4 1:09 PM EDT - 4 1:40 PM EDT Surgery OR GL, Operating Room, [facility] - 4th Floor [address] [place] [address] Jan Haynes, [address] [place] [address] ESOPHAGOGASTRODUODENOSCOPY (EGD), FLEXIBLE, TRANSORAL, DIAGNOSTIC 4 10:00 AM EDT Office Visit Sleep Disorders [facility] [place] [phone] Iwona Yanez CRNP [facility] [place] [address] 4 11:40 AM EDT Office Visit Nephrology, [facility] [address] [place] [address] Joaquin Shelley MD [address] [facility] [place] [address] 4 11:00 AM EDT Office Visit Nutrition & Weight Management, [facility] [address] [facility] [place] [address] Sallie Marrero PA-C 132 [facility] [place] [address] 5 2:00 PM EST Nurse Only Ancillary Department, [place] [address] [place] [address] [place], Nurse [facility] [address] [place] [address] Scheduled Procedures Name Priority Associated Diagnoses Date/Ti [...] Additional history exists CKD HGB USE SMARTSET 40945 06/26/202406/26, 06/27/2023, 08/31/2022, Additional history exists CKD PHOS USE SMARTSET 68742 06/26/202406/05, 09/09/2020, 03/24/2020, Additional history exists HbA1c [...] encounter Medical Devices Implanted Type Area Machine Tool Mechanic Device Identifier Shelf Expiration Date Model / Serial / Lot Lens Intraoc 20.0 - [id number] - [id number] Implanted:Qty: 1 on 01/02/2020 by Guero Bell MD at OR [facility] Left: Eye BAUSCH & LOMB 07/03/2024 [id number] / [id number] / [id number] Lens Intraoc 20.0 - [id number] - [id number] Implanted:Qty: 1 on 01/16/2020 by Guero Bell MD at OR [facility] Right: Eye BAUSCH & LOMB 08/03/2024 [id number] / [id number] / [id number] documented as of this encounter Care Teams Sediment Remediation Consultant Relationship Specialty Start Date End Date Kennedy Brooks MD [address] [place] [address] PCP - General Family Medicine 04/23/18 documented as of this encounter
--- OUTSIDE RECORDS SUMMARY | 2024-01-17 10:41 | External Medical Summary | Summary of Care ---
Author Name Unknown Organization [facility] Address [address] [place] [address] Phone [phone] Care Team Providers Care Glue Mill Operator Name Role Phone Kennedy Brooks MD Primary Care Provider [phone] Reason for Visit * Reason Onset Date Comments Test Results 07/28/2023 Encounter Details Date Type Department Care Team (Late st Contact Info) Description 07/28/2023 Telephone Nutrition & Weight Management, [facility] [address] [place] [address] Sallie Marrero PA-C [address] [place] [address] Test Results Allergies Active Allergy Reactions Criticality Noted Date Comments Paroxetine Hydrochloride Hives 06/07/2007 documented as of this encounter (statuses as of 08/02/2023) Medications Medication Sig Dispensed Refills Start Date [...] night at bedtime . Active Saline Nasal [place] 0.65 % Nasal Solution Administer 1 [place] into nostril as needed (nasal dryness, epistaxis). [...] bedtime. 90 Tablet 3 05/04/2023 Active Nystatin 000415 UNIT/GM External Powder (Nystop) Apply topically to [...] as of this encounter (statuses as of 08/02/2023) Active Problems Problem Noted Date Diagnosed Date [...] as of this encounter (statuses as of 08/02/2023) Resolved Problems Problem Noted Date Diagnosed Date [...] as of this encounter (statuses as of 08/02/2023) Immunizations Name Administration Dates Next Due COVID-19 [...] 4 9:30 AM EDT Office Visit Cardiology, [facility] [place] [address] Clementine Wang PA-C [address] [facility] [place] [address] 4 1:45 PM EDT Office Visit Orthopaedics [facility] [address] [facility] [place] [address] Hans Cruz DO [address] [place] [address] 4 8:30 AM EDT Home Visit [facility] [address] [place] [address] Kim Piper, RN [address] [place] [address] 4 2:20 PM EDT Office [place] [facility] [place] [address] Jayce Curtis MD [address] [facility] [place] [address] 4 2:20 PM EDT Office Visit Family [facility], [place] [address] [place] [phone] Kennedy Brooks MD [address] [place] [facility] [place] [address] 4 1:00 PM EDT Imaging Radiology, [address] [place] [address] 4 9:00 AM EDT Therapy Psychology, [facility] [address] [facility] [place] [address] Luz Carranza, [facility] [address] [place] [address] 4 1:30 PM EDT Telemedicine Nutrition & Weight Management, [facility] [address] [place] [address] [facility], Surgery Class Provider Mamta [address] [place] [address] 4 2:40 PM EDT Telemedicine Nutrition & Weight Management, [facility] [address] [place] [address] Chanda Bah PA-C [address] [place] [address] 4 1:50 PM EDT Nutrition Services Nutrition & Weight Management, [facility] [address] [place] [address] Laura Hinds RDN [address] [place] [address] 4 1:09 PM EDT Hospital Encounter [facility], Operating Room, [facility] - 4th Floor [address] [place] [address] Jan Haynes, DO [address] [place] [address] 4 1:09 PM EDT - 4 1:40 PM EDT Surgery OR GL, Operating Room, [facility] - 4th Floor [address] [place] [address] Jan Haynes, DO [address] [place] [address] ESOPHAGOGASTRODUODENOSCOPY (EGD), FLEXIBLE, TRANSORAL, DIAGNOSTIC 4 10:00 AM EDT Office Visit Sleep Disorders [facility] [address] [place] [phone] Iwona Yanez CRNP [address] [place] [address] 4 11:40 AM EDT Office Visit Nephrology, [facility] [address] [facility] [place] [address] Joaquin Shelley MD [address] [facility] [place] [address] 4 11:00 AM EDT Office Visit Nutrition & Weight Management, [facility] [address] [place] [address] Sallie Marrero PA-C [address] [place] [address] 5 2:00 PM EST Nurse Only Ancillary Department, [address] [address] [place], Nurse [facility] Wellness [facility] [place] [address] Scheduled Procedures Name Priority Associated Diagnoses Date/Ti [...] Additional history exists CKD HGB USE SMARTSET 07977 06/26/202406/26, 06/27/2023, 08/31/2022, Additional history exists CKD PHOS USE SMARTSET 07770 06/26/202406/05, 09/09/2020, 03/24/2020, Additional history exists HbA1c [...] encounter Medical Devices Implanted Type Area Car Spotter Device Identifier Shelf Expiration Date Model / Serial / Lot Lens Intraoc 20.0 - [id number] - [id number] Implanted:Qty: 1 on 01/02/2020 by Guero Bell MD at OR [facility] Left: Eye BAUSCH & LOMB 07/03/2024 [id number] / [id number] / [id number] Lens Intraoc 20.0 - [id number] - [id number] Implanted:Qty: 1 on 01/16/2020 by Guero Bell MD at OR [facility] Right: Eye BAUSCH & LOMB 08/03/2024 [id number] / [id number] / [id number] documented as of this encounter Care Teams Glue Mill Operator Relationship Specialty Start Date End Date Kennedy Brooks MD [address] [place] [address] PCP - General Family Medicine 04/23/18 documented as of this encounter
--- NOTE | 2024-01-17 10:42 | Nuclear Medicine Report ---
NM pul perfusion HISTORY: 68 years-old Female cp sob; pls call md calderon result once available due to chest pain with shor tness of breath COMPARISON: Duplex venous Doppler study of same day, chest CT 01/16/2024 TECHNIQUE: Nuclear medicine perfusion scan was obtained following the intravenous administration of 5 .2 mCi technetium 99 MDP administered via the right upper extremity. Ventilation images were not obta ined secondary to ongoing droplet precautions. FINDINGS: Comparison chest CT demonstrates no airspace consolidation. Comparison duplex venous Doppler study de monstrates no DVT. No large segmental perfusion defects. IMPRESSION: Low probability for pulmonary embolus. ACT 112: Negative or not required by law. The above report was generated using voice recognition software. It may contain grammatical, syntax o r spelling errors. Electronically signed by: Rishi Romero M.D. 01/17/2024 10:41 AM
--- OUTSIDE RECORDS SUMMARY | 2024-01-17 11:19 | External Medical Summary | Summary of Care ---
Author Name Unknown Organization [facility] Address [address] [place] [address] Phone [phone] Care Team Providers Care Laborer Hoisting Name Role Phone Kennedy Brooks MD Primary Care Provider [phone] Reason for Visit * Reason Comments Acute Had flu and RSV vacc ine (01/10/24) and has been shaking ever since Also has a runny nose Would like to know if there is anything she can take for her finger as well Encounter Details Date Type Department Care Team (Late st Contact Info) Description 01/16/2024 1:20 PM EST Office [facility] [address] [place] [address] Kennedy Brooks MD [address] [place] [address] Insomnia, unspecified type*; Acquired hypothyroidism; Hypertensive heart and kidney disease with chronic diastolic congestive heart failure and stage 3b chronic kidney disease (HCC); Chronic diastolic heart failure (HCC); Chigger bite Allergies Active Allergy Reactions Criticality Noted Date Comments Paroxetine Hydrochloride Hives 06/07/2007 documented as of this encounter (statuses as of 01/16/2024) Medications VITAMIN D 1000 UNIT PO CAPS Take 1 Capsule by mouth in the morning and 1 Capsule before bedtime. 30 Cap 11 08/30/19 12 Active aspirin enteric coated 81 MG TBECIndications:Pre -op testing,Abnormal nuclear stress test,HUGHES (dyspnea on exertion) Take 1 Tablet by mouth at bedtime. 12/08/19 18 Active Diclofenac Sodium 1 % gelIndications:CMC arthritis Place 2 g topically on the skin 4 times a day as needed (arthritis). 100 g 11 04/23/19 19 Active venlafaxine XR (EFFEXOR XR) 150 MG CP24 Take 1 Capsule by mouth in the morning. Take with 37.5 mg take with food. 30 Cap 5 10/30/19 19 Active Levalbuterol Tartrate 45 MCG/ACT Inhalation Aerosol (Xopenex HFA) Inhale 1 Puff by mouth every 4 hours as needed for Wheezing. 15 g 12 05/12/19 21 Active Fluticasone Propionate 50 MCG/ACT Nasal SuspensionIndicatio ns:Chronic rhinitis Administer into each nostril 2 Sprays in the morning. 18.2 mL 11 06/05/19 22 Active CPAP every night at bedtime . [...] mouth in the morning. 60 Each 5 11/24/19 23 Active Nystatin 066708 UNIT/GM External Powder (Nystop) Apply topically to affected area 3 times a day. 60 g 2 06/01/19 24 Active Additional Information Patient taking differently:TopicalPRN, Reported on 01/16/2024 tiZANidine HCl 4 MG Oral Tablet (Zanaflex) Take 1 Tablet by mouth every 12 hours as needed for Muscle spasms. 40 Tablet 06/23/19 24 Active buPROPion HCl ER (SR) 100 MG Oral Tablet Extended Release 12 Hour (Wellbutrin SR)Indications:HTN, goal below 140/90 Take 1 Tablet by mouth in the morning. 06/16/19 24 Active Gabapentin 400 MG Oral Capsule (Neurontin)Indicati ons:HTN, goal below 140/90 Take 1 Capsule by mouth in the morning and 1 Capsule before bedtime. 06/08/19 24 Active oxygen IN GAS 2 LPM bled through auto CPAP 7-12 cm H2O 1 Each 07/06/19 24 Active Multi Vitamin Daily Oral Tablet Take 1 Tablet by mouth in the morning. Active Citracal Petites/Vitamin D 200-6.25 MG-MCG Oral Tablet (Calcium Citrate-Vitamin D) Take 1 Tablet by mouth in the morning. Active Atorvastatin Calcium 40 MG Oral Tablet (Lipitor)Indication s:Other hyperlipidemia,Dysl ipidemia, goal LDL below 70 Take 1 Tablet by mouth every evening. 90 Tablet 3 08/25/19 24 Active Omeprazole 20 MG Oral Capsule Delayed Release (PriLOSEC)Indicatio ns:Heartburn TAKE 1 CAPSULE BY MOUTH IN THE MORNING AND 1 CAPSULE BEFORE BEDTIME. TAKE 30 MINUTES BEFORE A MEAL.. 180 Capsule 1 09/12/19 24 Active Venlafaxine HCl ER 37.5 MG Oral Capsule Extended Release 24 Hour (Effexor XR) Take 1 Capsule by mouth in the morning. 11/11/19 24 Active Torsemide 20 MG Oral Tablet (Demadex)Indication s:Chronic diastolic heart failure (HCC) 1 tab daily in Morning 90 Tablet 3 12/01/19 24 Active Amoxicillin-Pot Clavulanate 500-125 MG Oral Tablet (Augmentin) Take 1 Tablet by mouth in the morning and 1 Tablet before bedtime. 14 Tablet 12/04/19 24 Active Additional Information Patient not taking.Reported on 01/16/2024 Losartan Potassium 25 MG Oral Tablet (Cozaar)Indications :HTN, goal below 140/90 TAKE ONE TABLET BY MOUTH EVERY DAY 90 Tablet 2 12/16/19 24 Active Levocetirizine Dihydrochloride 5 MG Oral Tablet every evening. 11/26/19 24 Active QUEtiapine Fumarate 300 MG Oral Tablet (SEROquel) TAKE 1 TABLET BY MOUTH EVERYDAY AT BEDTIME 12/10/19 24 Active Wegovy 0.5 MG/0.5ML Subcutaneous Solution Auto-injector (Semaglutide-Weight Management) Inject 0.5 mg under the skin once a week. 2 mL 3 01/02/20 24 Active Levothyroxine Sodium 100 MCG Oral Tablet (Levoxyl)Indication s:Acquired hypothyroidism TAKE 1 TABLET BY MOUTH EVERY DAY FIRST THING IN THE MORNING 90 Tablet 3 01/16/20 24 Active Spironolactone 25 MG Oral Tablet (Aldactone)Indicati ons:Hypertensive heart and kidney disease with chronic diastolic congestive heart failure and stage 3b chronic kidney disease (HCC),Chronic diastolic heart failure (HCC) Take 1 Tablet by mouth in the morning. 90 Tablet 3 01/16/20 24 Active Triamcinolone Acetonide 0.1 % External Cream (Aristocort)Indicat ions:Chigger bite Apply topically to affected area as needed for Other (rash). To affected area. 80 g 53 01/16/20 24 Active Doxepin HCl 25 MG Oral Capsule (SINEquan)Indicatio ns:Insomnia, unspecified type Take 1 Capsule by mouth at bedtime. 14 Capsule 01/16/20 24 Active triamcinolone acetonide (ARISTOCORT) 0.1 % creamIndications:Ch igger bite Apply topically to affected area 2 times a day. To affected area. 80 g 5 04/29/19 20 024 Discontin ued(Refil l) Levothyroxine Sodium 100 MCG Oral Tablet (Levoxyl)Indication s:Acquired hypothyroidism TAKE 1 TABLET BY MOUTH EVERY DAY FIRST THING IN THE MORNING 90 Tablet 3 09/18/19 24 024 Discontin ued(Refil l) Spironolactone 25 MG Oral Tablet (Aldactone)Indicati ons:Hypertensive heart and kidney disease with chronic diastolic congestive heart failure and stage 3b chronic kidney disease (HCC),Chronic diastolic heart failure (HCC) TAKE 1 TABLET BY MOUTH EVERY DAY IN THE MORNING 90 Tablet 3 11/15/19 24 024 Discontin ued(Refil l) documented as of this encounter (statuses as of 01/16/2024) Active Problems Problem Noted Date Diagnosed Date Food insecurity 09/11/2023 Overview: Per [facility] Protocol Morbid obesity with BMI of 45.0-49.9, adult 08/05 Atherosclerosis of coronary artery 08/25/2023 Aortic root enlargement 08/22/2023 Prediabetes 07/17/2023 Overview: Per Prediabetes protocol AMIRA (obstructive sleep apnea) 01/13/2023 Overview (05/04/2023): aPAP to 8-15 cmH2O with ramp 4 cmH2O when awake Assessment & Plan (01/13/2023 2:34 PM EST): aPAP to 8-15 cmH2O with ramp 4 cmH2O when awake PAD (peripheral artery disease) 08/12/2022 Major depressive disorder, recurrent, moderate 1 04/23/2021 Lung nodule 06/04/2021 Chronic kidney disease, stage 3b 07/14/2020 Overview: Per CKD protocol Mild persistent asthma without complication 11/2019 Assessment & Plan (01/13/2023 2:29 PM EST): "RED FLAG" symptoms: Increased shortness of breath [...] kidney disease 01/13/2020 Overview: Per CKD protocol Assessment & Plan (05/04/2023 4:13 PM EST): "RED FLAG" HF Symptoms: Leg Swelling (Examples: [...] mg Additional Comments: AMC scale in place Assessment & Plan (01/13/2023 2:19 PM EST): "RED FLAG" HF Symptoms: Leg Swelling (Examples: [...] LDL below 70 04/29/2019 Other schizophrenia 04/29/2019 Assessment & Plan (05/04/2023 4:14 PM EST): On effexor and seroquel Follows with non [facility] psychiatry, Rehana MATHIS Seroquel recently increased to 200mg Assessment & Plan (01/13/2023 2:22 PM EST): On effexor and seroquel Follows with non [facility] psychiatry, Rehana MATHIS Fibromyalgia 10/29/2018 Posterior interosseous nerve pain 09/30/2015 CMC arthritis 06/25/2015 Acquired autoimmune hypothyroidism 10/02/2014 Vitamin D deficiency 06/24/2014 Non-toxic multinodular goiter 09/26/2013 Gastroesophageal reflux disease without esophagi tis 08/25/2011 Chronic constipation 08/25/2011 Assessment & Plan (05/04/2023 4:17 PM EST): Encouraged use of miralax up to 2 times daily, can adjust as needed to maintain routine BM HTN, goal below 140/90 06/25/2009 Menopause 05/15/2007 documented as of this encounter (statuses as of 01/16/2024) Resolved Problems Problem Noted Date Diagnosed Date Resolved Date Body mass index (BMI) of 45. 0 to 49.9 in adult 05/15/2023 09/14/2023 Overview: Per Obesity protocol - Per Obesity protocol - Per Obesity protocol - Per Obesity protocol Body mass index (BMI) of 50. 0 to 59.9 in adult 06/13/2022 05/18/2023 Overview: Per Obesity protocol - Per Obesity protocol - Per Obesity protocol Assessment & Plan (05/04/2023 4:13 PM EST): Following with weight management Consider bariatric surgery [...] Aortic root dilatation 04/29/201902/20 Cough 10/29/2018 01/04/2019 Overview (01/04/2019): acute Hypertensive kidney disease with chronic kidney disease stage III 05/25/2018 01/16/2020 Overview: Per CKD protocol Body mass index (BMI) of 40. 0 to 44.9 in adult 12/05/2016 05/16/2019 Overview: Per Obesity protocol #1 Schizophrenia 06/24/2014 10/15/2019 Overview (10/15/2019): history Shoulder joint pain 04/03/2012 05/26/19 19 KIDNEY DISEASE, CHRONIC, STA GE III (GFR 30-59 ML/MIN) 07/25/2011 06/13/2018 Overview (07/28/2011): Per CKD protocol #1 LOC PRIM OSTEOARTH-HAND - CMC grade 1-2 10/22/2010 09/28/2022 Overview (09/28/2022): duplicate Cyst of thyroid 05/10/2008 05/25/2018 Obesity, BMI not known 05/15/200712/08 Hypothyroidism 05/15/2007 05/25/2018 Headache 05/15/2007 05/25/2018 Overview (05/27/2015): ICD-10 update of inactive term ADVANCE DIRECTIVE INFORMATION 11/30/2006 01/08/2024 Overview (11/30/2006): No, Advance Directive brochure offered , patient declined. 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 Not on file Not on file documented as of this encounter Last Filed Vital Signs Vital Sign Reading Time Taken Comments Blood Pressure 122/74 01/16/2024 1:12 PM EST Pulse 103 01/16/2024 1:12 PM EST Temperature 35.3 C (95.5 F) 01/16/2024 1:12 PM ES T Respiratory Rate 17 01/16/2024 1:12 PM EST Oxygen Saturation 96% 01/16/2024 1:12 PM EST Inhaled Oxygen Concentration - - Weight 118.5 kg (261 lb 3.2 oz) 01/16/2024 1:12 PM EST Height 159.8 cm (5' 2.9") 01/16/2024 1:12 PM EST Body Mass Index 46.42 01/16/2024 1:12 PM EST documented in this encounter Progress Notes * Kennedy Brooks MD - 01/16/2024 1:24 PM EST Subjective: Paige Hendricks is a 68 year old female. Chief Complaint Patient presents with Acute Had flu and RSV vaccine (01/10/24) and has been shaking ever since Also has a runny nose Would like to know if there is anything she can take for her finger as well HPI: 68-year-old seen today with several different concerns. She both flu shot in RSV on 4at [facility] pharmacy. Within 2 days' time she noted several symptoms including shakes and upset stomach. At the same time she was found to have E coli UTI with Dr. Bryant in was started on Augmentin for 7 days. Additionally she normally uses Seroquel 300 mg at bedtime every day. She knows that this helps her sleep but most likely is helpful in regards to her underlying Um schizophrenia. This is prescribed through a physician travel assistant that works where Dr. Franks used to be. She was told I [facility] pharmacy that there records indicate she we see that prescription December 05 but she does not recall having Seroquel now for several weeks. Now bothered with inability to sleep, shakiness, diffuse abdominal discomfort Patient Active Problem List Diagnosis Menopause HTN, goal below 140/90 Gastroesophageal reflux disease without esophagitis Chronic constipation Non-toxic multinodular goiter Vitamin D deficiency Acquired autoimmune hypothyroidism CMC arthritis Posterior interosseous nerve pain Fibromyalgia Bipolar II disorder (HCC) Dyslipidemia, goal LDL below 70 Other schizophrenia (HCC) Chronic diastolic heart failure (HCC) Hypertensive heart and kidney disease with chronic diastolic congestive heart failure and stage 3b chronic kidney disease ([facility]) Mild persistent asthma without complication Chronic kidney disease, stage 3b ([facility]) Lung nodule Major depressive disorder, recurrent, moderate (HCC) PAD (peripheral artery disease) ([facility]) AMIRA (obstructive sleep apnea) Prediabetes Aortic root enlargement ([facility]) Morbid obesity with BMI of 45.0-49.9, adult ([facility]) Atherosclerosis of coronary artery Food insecurity Current [...] in the morning. 60 Each 5 Nystatin 572782 UNIT/GM External Powder (Nystop) Apply topically to [...] Take 1 Tablet bymouth in the morning. Atorvastatin Calcium 40 MG Oral Tablet (Lipitor) [...] tab daily in Morning 90 Tablet 3 Losartan Potassium 25 MG Oral Tablet (Cozaar) TAKE ONE TABLET BY MOUTH EVERY DAY 90 Tablet 2 Levocetirizine Dihydrochloride 5 MG Oral Tablet every evening. QUEtiapine Fumarate 300 MG Oral Tablet (SEROquel) TAKE 1 TABLET BY MOUTH EVERYDAY AT BEDTIME Wegovy 0.5 MG/0.5ML Subcutaneous Solution Auto-injector (Semaglutide-Weight Management) Inject 0.5 mg under the skin once a week. 2 mL 3 Amoxicillin-Pot Clavulanate 500-125 MG Oral Tablet (Augmentin) Take 1 Tablet by mouth in the morning and 1 Tablet before bedtime. (Patient not taking: Reported on 01/16/2024) 14 Tablet 0 No current facility-administered medications for this visit. Review of patient's allergies indicates: Allergen Reactions Paxil [Paroxetine Hydrochloride] Hives Objective: BP 122/74 | Pulse 103 | Temp 35.3 C (95.5 F) | Resp 17 | Ht 1.598 m (5' 2.9") | Wt 118.5 kg (261 lb 3.2 oz) | SpO2 96% | BMI 46.42 kg/m | BSA 2.29 m Physical Exam: CONST: alert, pleasant, no acute distress HEAD: normocephalic, atraumatic Eyes - PERRLA, EOM'I OROPHARYNX: clear, no [...] SKIN: no rash or significant lesions ASSESSMENT/PLAN: Acquired hypothyroidism Hypertensive heart and kidney disease with chronic diastolic congestive heart failure and stage 3b chronic kidney disease (HCC) Chronic diastolic heart failure (HCC) For schizophrenia-she really needs to be on the Seroquel but that is managed by her physician travel assistant psychiatrist. Patient believes that she will be able to get the Seroquel when she has hernext telephonic visit with psychiatry on January 25. So that means she has got about 10 days before she can get medicine. I think when she gets back on the medicine a lot of her symptoms were going to get better Chronic insomnia-in lieu of not having Seroquel, I have prescribed doxepin 25 mg to use 1 daily at nighttime until she gets back on the Seroquel which she would be less than 2 weeks. As far as possible reaction to combination of RSV and flu vaccine, it is impossible to say she had several different things going on including being off of her regular Seroquel, urinary tract infection, addition of 7 days Augmentin all right on the same time she got the RSV and flu shot. I would not be afraid to give her the shots in the future but I would not give him together. She is scheduled to see me next month. Will get blood work at that time. Kennedy Brooks MD documented in this encounter Nursing Notes * Roseanne Killian LPN - 01/16/2024 1:21 PM EST The patient has been properly identified by confirmation of name and date of . Chief Complaint Patient presents with Acute Had flu and RSV vaccine (01/10/24) and has been shaking ever since Also has a runny nose Would like to know if there is anything she can take for her finger as well documented in this encounter Plan of Treatment Upcoming Encounters Date Type Department Care Team (Latest Contact Info) Description 02/07/2024 10:15 AM EST Office Visit General Surgery, [place] [address] [place] [address] Ben Ochoa MD [address] [place] [address] 02/07/2024 12:45 PM EST Pre-Admission Testing Pre Surgery [place], [place] [address] [place] [address] [facility] [address] [place] [address] 02/07/2024 2:00 PM EST Office Visit Cardiology, [facility] [address] [place] [address] Clementine Wang PA-C [address] [place] [address] 02/15/2024 12:40 PM EST Office Visit Podiatry [facility] [address] [place] [address] Samantha Borden DPM [address] [facility] [place], [place] [address] 02/21/2024 9:00 AM EST Telemedicine Nutrition & Weight Management, [place] [address], [place] [id number] Emi Chandra CRNP [address] [place] [address] 02/26/2024 2:00 PM EST Office Visit [facility], [address] [address] Kennedy Brooks MD [address] [place] [address] 03/12/2024 7:15 AM EST Hospital Encounter OR [facility], OPERATING ROOM [facility] [address] [place] [phone] Ben Ochoa MD [address], [place] [address] 03/12/2024 7:15 AM EST - 03/12/2024 11:13 AM EST Surgery OR [facility], OPERATING ROOM [facility], [facility] [address] [place] [phone] Ben Ochoa MD [address], [place] [id number] LAPAROSCOPIC GASTRIC RESTRICTIVE BYPASS MALIKA EN Y 03/28/2024 11:30 AM EST Office Visit General Surgery, [facility] [address] [place], [place] [address] Ben Ochoa MD [address] [place] [address] 04/25/2024 2:00 PM EST Nurse Only Ancillary Department, [address] [address] Donna, Nurse [facility] [address] [place] [address] 06/11/2024 12:30 PM EDT Office Visit [facility] [place] [address] [place] [phone] Iwona Yanez CRNP [address] [place] [address] 07/03/2024 3:40 PM EDT Office Visit Nephrology, [facility] [address] [facility] [place], [place] [address] Joaquin Shelley MD [address] [place], [place] [address] Scheduled Procedures Name Priority Associated Diagnoses Date/Ti me LAPAROSCOPIC GASTRIC RESTRIC TIVE BYPASS MALIKA EN Y Morbid obesity with BMI of 45.0-49.9, adult ([facility]) 03/12/2024 7:15 AM EST ESOPHAGOGASTRODUODENOSCOPY ( EGD), FLEXIBLE, TRANSORAL, DIAGNOSTIC Morbid obesity with BMI of 45.0-49.9, adult ([facility]) 03/12/2024 7:15 AM EST UNLISTED LAPAROSCOPIC PROCEDURE LIVER Morbid obesity with BMI of 45.0-49.9, adult ([facility]) 03/12/2024 7:15 AM EST COLONOSCOPY FLEXIBLE PROXIMA [...] Monitoring 08/29/2024 08/30/2023 CKD HGB USE SMARTSET 98002 11/30/202411/30, 12/01/2023, 06/27/2023, Additional history exists CKD PHOS USE SMARTSET 43429 11/30/202411/05, 06/27/2023, 09/09/2020, Additional history exists DTap/Tdap [...] this encounter Medical Devices Implanted Type Area Raw Products Director Device Identifier Shelf Expiration Date Model / Serial / Lot Lens Intraoc 20.0 - [id number] - [id number] Implanted:Qty: 1 on 01/02/2020 by Guero Bell MD at OR [facility] Left: Eye [employer] 07/03/2024 [id number] / [id number] / [id number] Lens Intraoc 20.0 - [id number] - [id number] Implanted:Qty: 1 on 01/16/2020 by Guero Bell MD at [facility] Right: Eye [employer] 08/03/2024 [id number] / [id number] / [id number] documented as of this encounter Visit Diagnoses Diagnosis Hypertensive heart and kidney disease with chronic diastolic congestive heart failure and stage 3b chronic kidney disease (HCC)- Primary Mild persistent asthma without complication Unspecified asthma Major depressive disorder, recurrent, moderate (HCC) Major depressive disorder, recurrent episode, moderate Bipolar II disorder (HCC) Other bipolar disorders Other schizophrenia (HCC) AMIRA (obstructive sleep apnea) Obstructive sleep apnea (adult) (pediatric) Hypertensive heart and kidney disease with chronic diastolic congestive heart failure and stage 3b chronic kidney disease (HCC)- Primary Major depressive disorder, recurrent, moderate (HCC) Major depressive disorder, recurrent episode, moderate Other schizophrenia (HCC) AMIRA (obstructive sleep apnea) Obstructive sleep apnea (adult) (pediatric) Body mass index (BMI) of 50.0 to 59.9 in adult (HCC) Chronic constipation Unspecified constipation Personal history of fall Morbid obesity with BMI of 45.0-49.9, adult (HCC)- Primary Morbid obesity Insomnia, unspecified type- Primary Acquired hypothyroidism Unspecified hypothyroidism Hypertensive heart and kidney disease with chronic diastolic congestive heart failure and stage 3b chronic kidney disease (HCC) Chronic diastolic heart failure (HCC) Chronic diastolic heart failure Chigger bite Other acariasis Morbid obesity with BMI of 45.0-49.9, adult [...] Discussed due to patient's condition Care Teams Laborer Hoisting Relationship Specialty Start Date End Date Kennedy Brooks MD [address] [place] [address] PCP - General Family Medicine 04/23/18 documented as of this encounter
[2024-01-17] MEDS: ACETAMINOPHEN 500 MG TAB PO PRN (13:33)
--- NOTE | 2024-01-17 14:55 | Hospitalist Progress Note ---
Date of Service January 17, 2024 Assessment & Plan (1) Atypical chest pain: Plan Pt is a 68yoF with Medical history significant for chronic diastolic heart failure (EF 61%, TTE 2022), nonocclusive CAD, PVD, hypertension, CRI (baseline creatinine 1.7), AMIRA on CPAP, GERD, anxiety/mood disorder/schizophrenia/fibromyalgia, hypothyroidism, prediabetes who presents with cough and recent fall. Atypical chest pain with exertional SOB and troponin elevation Trop Downtrended Continue to monitor on telemetry Viral bronchitis Concern for PE no sepsis for now Chest XR and chest CT with no acute abnormality rule out PE given abnormal D-dimer -venous doppler negative -V/Q scan low probability for DVT -IV heparin discontinued Supportive management for viral bronchitis Complicated UTI UA and urine Cx On rocephin Diarrhea secondary to viral illness rule out C. difficile given recent antibiotic Rx ARF on CKD secondary to illness Holding home nephrotoxic meds- diuretics ARB Continue to monitor L navicular fracture ortho consult Right kidney cyst incidental finding on CT Outpt followup Chronic Medical Problems: nonocclusive CAD/PVD hypertension, stable AMIRA on CPAP GERD, chest pain reminiscent of GERD attack as per patient anxiety/mood disorder/schizophrenia/fibromyalgia hypothyroidism, TSH slightly elevated prediabetes, hemoglobin A1c of 5.9 last June 2023 Right kidney cyst, incidental finding on CT Left navicular fracture Ambulatory dysfunction PT OT eval once medically stable DVT prophylaxis. heparin SQ Full code Admission and Anticipated Discharge Date Admission Date: January 16, 2024 Subjective patient was seen laying in bed Was resting comfortably awakened from sleep Stated that she was still shaky Denied any shortness of breath, chest pain Review of Systems Review of Systems: All systems reviewed & are unremarkable except as noted in Subjective Physical Exam Physical Exam: General: Alert, oriented. Skin: No noted rashes or bruises Psych: Appropriate mood and affect HEENT: NC/AT CV: RRR Resp: Breath sounds clear bilaterally, no increased effort of breathing Abdomen:Soft, nontender, nondistended Extremities: edema in lower extremities bilaterally. Results & Data Results & Data Vital Signs (Past 12 Hours) Vital Signs Temp Pulse Pulse Resp BP Pulse Ox O2 Del Method 01/17/24 11:47 36.7 C 78 18 114/65 95 Room Air 01/17/24 10:16 Room Air 01/17/24 07:38 36.2 C L 73 16 132/72 95 Room Air 01/17/24 07:17 74 Diagnostic Findings Chest X-Ray 01/16/24 19:19 Exam(s): XR CXR 1 VIEW EXAM: XR Chest, 1 View CLINICAL HISTORY: Reason for exam: weakness. TECHNIQUE: Frontal view of the chest. COMPARISON: X-ray chest: 11/02/2020 FINDINGS: Lungs: Demonstrates prominent perihilar bronchovascular/interstitial markings in both lung de jesus. No consolidation. Pleural space: No pleural effusion. No pneumothorax. Heart: Mild cardiomegaly. Mediastinum: Atherosclerotic tortuosity of the thoracic aorta. Normal mediastinal contour. Bones/joints: Osteopenia. No obvious acute fracture. Degenerative changes of the spine and shoulders. IMPRESSION: Bilateral bronchial wall thickening and perihilar bronchovascular/increased interstitial markings. No consolidation or pleural effusion. . Electronically signed by: Jonathan Thao MD, DABR 01/16/24 21:06 PM Ankle X-Ray 01/16/24 19:37 Exam(s): XR RIGHT ANKLE, 3+ views EXAM: XR Right Ankle Complete, 3 or More Views CLINICAL HISTORY: Reason for exam: fall. TECHNIQUE: Frontal, lateral and oblique views of the right ankle. COMPARISON: None. FINDINGS: Bones/joints: Osseous demineralization. No acute left ankle fracture. No dislocation. Plantar calcaneal spur. Posterior calcaneal enthesophyte. Suspect fracture of the medial cortex of the navicular bone. Soft tissues: Soft tissue swelling of the ankle more medially/anteriorly. IMPRESSION: Suspect fracture of the medial cortex of the left navicular bone. Recommend clinical correlation. No acute left ankle fracture identified. Medially soft tissue edema/swelling of the left ankle. . Electronically signed by: Jonathan Thao MD, AMADOU 01/16/24 23:[address] 01/16/24 19:37 Exam(s): CT C SPINE EXAM: CT Cervical Spine Without Intravenous Contrast CLINICAL HISTORY: Reason for exam: falls, pain. TECHNIQUE: Axial computed tomography images of the cervical spine without intravenous contrast. CTDI is 29.22 mGy and DLP is 573 mGy-cm. Automated exposure control was utilized for the study. A dose lowering technique was utilized adhering to the principles of ALARA. COMPARISON: None. FINDINGS: Motion-induced image degradation. Vertebrae: Normal alignment of the spine. No malalignment. A C7 vertebral superior endplate mild compression deformity/ fracture of indeterminant age (series 603 image 48). No other cervical vertebral acute fracture identified. Discs/spinal canal/neural foramina: No acute findings. No spinal canal stenosis. Soft tissues: Unremarkable. Lung apices: Interstitial thickening/patchy parenchymal groundglass opacities. IMPRESSION: Demonstrates a C7 vertebral superior endplate mild compression deformity/fracture of indeterminant age. Recommend clinical correlation. Otherwise no acute osseous injury to the cervical spine identified. . Electronically signed by: Jonathan Thao MD, AMADOU 01/16/24 22:[address] 01/16/24 19:37 Exam(s): CT HEAD Without Contrast EXAM: CT Head Without Intravenous Contrast CLINICAL HISTORY: Reason for exam: falls, shaky. TECHNIQUE: Axial computed tomography images of the head/brain without intravenous contrast. CTDI is 65.68 mGy and DLP is 961.59 mGy-cm. Automated exposure control was utilized for the study. A dose lowering technique was utilized adhering to the principles of ALARA. COMPARISON: MRI brain: 10/21/2006 FINDINGS: Image diagnostic quality is reduced by motion and beam hardening artifacts. Brain: There is no acute intracranial hemorrhage, mass-effect or midline shift. Focal zone of decreased attenuation in the left basal ganglia, likely an old infarct. Ventricles: Age-related mild/moderate cerebral atrophy with widening of the extra-axial spaces/ventricular dilatation. Periventricular/subcortical areas of decreased attenuation, from likely chronic microvascular disease. Bones/joints: Unremarkable. No acute fracture. Soft tissues: Unremarkable. Sinuses: Unremarkable as visualized. No acute sinusitis. Mastoid air cells: Unremarkable as visualized. No mastoid effusion.. IMPRESSION: Limited exam No acute intracranial abnormality is evident . Electronically signed by: Jonathan Thao MD, DABR 01/16/24 22:45 PM Abdomen/Pelvis CT 01/16/24 20:34 Exam(s): CT ABDOMEN + PELVIS Without Contrast EXAM: CT Abdomen and Pelvis Without Intravenous Contrast CLINICAL HISTORY: Reason for exam: falls, low back pain, MADAN. TECHNIQUE: Axial computed tomography images of the abdomen and pelvis without intravenous contrast. CTDI is 33.6 mGy and DLP is 2248 mGy-cm. Automated exposure control was utilized for the study. A dose lowering technique was utilized adhering to the principles of ALARA. COMPARISON: None. FINDINGS: Lack of IV contrast limits evaluation of soft tissues/vascular structures. Lung bases: No mass. No consolidation. No pleural effusion. Proximal ascending aortic mild aneurysm: 42 mm. Calcified right coronary artery visualized. 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 ABDOMEN: Liver: A 1.9 cm ring calcified structure is seen in the dome of the right hepatic lobe, most likely benign (series 1000 image 44).. Gallbladder and bile ducts: Prior cholecystectomy. No ductal dilation. Pancreas: Pancreatic fatty infiltration , mild/moderate atrophy. No ductal dilation. Spleen: Unremarkable. No splenomegaly. Adrenals: Unremarkable. No mass. Kidneys and ureters: A 2.5 x 2.2 cm ring calcified exophytic structure is seen laterally from the mid right kidney (series 11 image 36, series 1000, image 65). No obstructing stones. No hydronephrosis. Stomach and bowel: A small hiatal hernia. Nonspecific mucosal/wall thickening of the cecum/ascending colon, this could be related to acute colitis versus incomplete distention (series 11 image 54, series 1000 image 52). No obstruction. PELVIS: Appendix: No findings to suggest acute appendicitis. Bladder: Unremarkable. No stones. Reproductive: Prior hysterectomy. ABDOMEN and PELVIS: Intraperitoneal space: No free air. No significant fluid collection. Bones/joints: No acute fracture. No dislocation. At T9-T10: Moderate degenerative spondylitic changes. Lower lumbosacral facet osteoarthropathy. Moderate bilateral hip osteoarthrosis. Soft tissues: Unremarkable. Vasculature: Mild/moderate infrarenal aortic atherosclerosis. No abdominal aortic aneurysm. Lymph nodes: No enlarged lymph nodes.. IMPRESSION: Nonspecific mucosal/wall thickening of the cecum/ascending colon, could be related to acute colitis versus incomplete distention. Recommend clinical correlation. A 2.5 x 2.2 cm ring calcified exophytic structure seen laterally a from the mid right kidney, likely a complex cyst. Renal ultrasound correlation is advised. . Electronically signed by: Jonathan Thao MD, DABR 01/17/24 00:[address] 01/16/24 20:34 Exam(s): CT CHEST Without Contrast EXAM: CT Chest Without Intravenous Contrast CLINICAL HISTORY: Reason for exam: falls, CP. TECHNIQUE: Axial computed tomography images of the chest without intravenous contrast. CTDI is 33.67 mGy and DLP is 2248 mGy-cm. Automated exposure control was utilized for the study. A dose lowering technique was utilized adhering to the principles of ALARA. COMPARISON: CTA chest 11/02/2020 FINDINGS: Lungs: No pulmonary contusion. Unchanged 5 mm pulmonary nodular in the periphery of the right upper lobe. Pleural space: No pleural effusion or pneumothorax. Heart: Unremarkable. Bones/joints: No acute fracture. Soft tissues: Unremarkable. Vasculature: Aneurysmal ascending thoracic aorta up to 4.7 cm. Lymph nodes: Unremarkable. IMPRESSION: 1. No acute abnormality. 2. Aneurysmal ascending thoracic aorta up to 4.7 cm. Electronically signed by: Gurjit Dickson MD 01/17/24 00:[address] 01/16/24 20:39 Exam(s): CT L SPINE EXAM: CT Lumbar Spine Without Intravenous Contrast CLINICAL HISTORY: Reason for exam: fall, pain. TECHNIQUE: Axial computed tomography images of the lumbar spine without intravenous contrast. CTDI is 29 mGy and DLP is 573 mGy-cm. Automated exposure control was utilized for the study. A dose lowering technique was utilized adhering to the principles of ALARA. COMPARISON: No relevant prior studies available. FINDINGS: Vertebrae: No acute fracture or malalignment. Soft tissues: Unremarkable. IMPRESSION: No acute findings in the lumbar spine. Electronically signed by: Gurjit Dickson MD 01/17/24 00:38 AM Foot X-Ray 01/16/24 23:06 Exam(s): XR LEFT FOOT EXAM: XR Left Foot Complete, 3 or More Views CLINICAL HISTORY: Reason for exam: pain ?frx. TECHNIQUE: Frontal, lateral and oblique views of the left foot. COMPARISON: No relevant prior studies available. FINDINGS: Bones/joints: No acute fracture or malalignment. Pes cavus. Calcaneal enthesophytes. Soft tissues: Unremarkable. IMPRESSION: No acute fracture or malalignment. Electronically signed by: Gurjit Dickson MD 01/17/24 00:47 AM Venous Doppler Study 01/17/24 01:55 EXAM: US venous doppler LE BI CLINICAL HISTORY: HX: NO PREV. ELEVATED D DIMER. EXAM LIMITED BY INCREASED BODY HABITUS, BMI 42. TECH NOTES: NO OBVIOUS DVT BILAT LOWER EXT. TECHNIQUE: Ultrasound examination of bilateral lower extremity veins was performed in real time and duplex. One or more of the following were performed- spectral analysis, resistive index, waveform analysis, and pulsed Doppler. COMPARISON: None. FINDINGS: Normal phasic, non-pulsatile and spontaneous flow is noted in bilateral GSV, common femoral, superficial femoral, popliteal and posterior tibial, anterior tibial and peroneal veins. Visualized veins of both lower extremities demonstrate normal compressibility. No sonographic evidence of acute deep vein thrombosis (DVT) is detected in the visualized veins of both lower extremities. Compression and Augmentation: All evaluated veins compress fully with applied transducer pressure. Augmentation of venous flow is noted with distal compression. Additional Findings: No evidence of intraluminal thrombus. IMPRESSION: No sonographic evidence of acute DVT detected in bilateral lower extremity veins, at the time of examination. Disclaimer: DVT could be missed early in the disease when clot burden is minimal. For patients with moderate and high pretest probability of DVT and negative ultrasound, the [employer] clinical guidelines recommend testing with a D-dimer assay or repeat ultrasound in 5-7 days. If symptoms worsen, the Society of radiologists in ultrasound recommends repeating ultrasound even earlier. Electronically signed by Bob Adams 01-17-2024 05:11 AM Pulmonary Perfusion Imaging 01/17/24 05:38 NM pul perfusion HISTORY: 68 years-old Female cp sob; pls call md calderon result once available due to chest pain with shortness of breath COMPARISON: Duplex venous Doppler study of same day, chest CT 01/16/2024 TECHNIQUE: Nuclear medicine perfusion scan was obtained following the intravenous administration of 5.2 mCi technetium 99 MDP administered via the right upper extremity. Ventilation images were not obtained secondary to ongoing droplet precautions. FINDINGS: Comparison chest CT demonstrates no airspace consolidation. Comparison duplex venous Doppler study demonstrates no DVT. No large segmental perfusion defects. IMPRESSION: Low probability for pulmonary embolus. ACT 112: Negative or not required by law. The above report was generated using voice recognition software. It may contain grammatical, syntax or spelling errors. Electronically signed by: Rishi Romero M.D. 01/17/2024 10:41 AM
[2024-01-17 16:46] LABS: ANTI-Xa, UFH(UnfractionatedHep < 0.10 IU/ml (0.3-0.7)
[2024-01-17] MEDS: ACETAMINOPHEN 325 MG TAB PO ONE (17:14)
[2024-01-17] MEDS: buPROPion SR 100 MG TABCR PO SCH (20:21)
[2024-01-17] MEDS: QUEtiapine FUMARATE 300 MG TABLET PO SCH (20:21)
[2024-01-17] MEDS: HEPARIN SOD 5,000 UNIT/0.5 ML VIAL SQ SCH (22:04)
[2024-01-17] MEDS: cefTRIAXone SODIUM 2,000 MG/50 ML BAG IV SCH (22:05)
[2024-01-18 06:08] LABS: Basophils # (auto) 0.03 K/uL (0.00-0.20); Basophils % (auto) 0.6 %; Eosinophils # (auto) 0.08 K/uL (0.00-0.50); Eosinophils % (auto) 1.7 %; Hematocrit (blood only) 36.6 % (37.0-47.0); Hemoglobin 12.7 g/dl (12.0-16.0); Immature Granulocytes # (auto) 0.01 K/uL (0.01-0.20); Immature Granulocytes % (auto) 0.2 %; Lymphocytes # (auto) 1.93 K/uL (1.20-3.40); Mean Corpuscular Hemoglobin 30.6 pg (25.0-34.0); Mean Corpuscular Hgb Conc 34.7 g/dL (32.0-36.0); Mean Corpuscular Volume 88.2 fL (80.0-100.0); Mean Platelet Volume 11.5 fL (9.4-12.4); Monocytes # (auto) 0.57 K/uL (0.11-0.59); Monocytes % (auto) 11.8 %; Neutrophils # (auto) 2.21 K/uL (1.40-6.50); Neutrophils % (auto) 45.7 %; Platelet Count 205 K/uL (130-400); RDW Coefficient of Variation 13.7 % (11.5-14.5); RDW Standard Deviation 44.4 fL (36.4-46.3); Red Blood Count 4.15 M/uL (4.20-5.40); White Blood Count 4.83 K/ul (4.8-10.8)
[2024-01-18 06:27] LABS: BUN Creatinine Ratio 6.6 (10-20); Creatinine Clr Calc Pharmacy 48.3 ml/min; Magnesium 1.8 mg/dl (1.7-2.4); Phosphorus 3.8 mg/dl (2.5-4.9)
[2024-01-18] MEDS: LEVOTHYROXINE SODIUM 100 MCG TABLET PO SCH (06:32)
[2024-01-18] MEDS: CHOLECALCIFEROL 25 MCG (1000 UNITS) TAB PO SCH (08:38)
[2024-01-18] MEDS: ATORVASTATIN 40 MG TAB PO SCH (08:38)
[2024-01-18] MEDS: VENLAFAXINE HCL XR 150 MG CAPXR PO SCH (08:39)
[2024-01-18] MEDS: VENLAFAXINE HCL XR 37.5 MG CAPXR PO SCH (08:39)
[2024-01-18] MEDS: ASPIRIN 81 MG ECTAB PO SCH (08:39)
[2024-01-18] MEDS ORDERED: LOSARTAN POTASSIUM 25 MG TAB PO SCH (09:00)
--- NOTE | 2024-01-18 10:27 | Orthopedic Progress Note ---
Date of Service January 18, 2024 Assessment & Plan (1) Foot pain, left: Plan: IMPRESSION: Left foot pain secondarily to Accessary Navicular versus sprain Acute vs Acute on chronic Goals: Decrease pain PLAN: RICE. Continue pain control. Will obtain a high tide cam boot, wear multimedia specialist except for bathing, icing, and rehab. PT/OT WBAT in the boot Continue care per primary service Admission and Anticipated Discharge Date Admission Date: January 16, 2024 Supervising Physician Co-Signing Physician Notes I, Dr. Stroud, saw and examined this evening and agree with the findings and plan of care I developed and discussed with my PA. Patient feeling better with wearing the boot while ambulating. PE: LLE, Neurovascular unchanged. Decrease tenderness, now only over the Navicular and posterior Tib. - forefoot squeeze test and calf squeeze test. Subjective This 68-year-old female seen today for follow-up of a left foot navicular fracture and ankle sprain. She was given a high tide Cam walker boot yesterday afternoon. Currently she is resting in bed comfortably without any complaints of chest pain, shortness of breath, numbness or tingling in her extremities. She also denies fever, chills, sweats but states that she was cold last night. She states she has been able to void but has not yet done physical therapy. Review of Systems Review of Systems: All systems reviewed & are unremarkable except as noted in Subjective Physical Exam Physical Exam: Left foot/ankle: Patient has tenderness to palpation over the medial aspect of the navicular bone on the anteromedial surface. There is some mild edema but no erythema ecchymosis or skin breakdown. There is no discoloration or swelling to the plantar surface of her foot. She is able to actively dorsi and plantarflex and only has minimal discomfort with applied resistance. She does experience some slight discomfort with resisted internal and external rotation of her foot. Patient has some mild tenderness to palpation over the medial and lateral malleolus as well as over the peroneal and posterior tibial tendons. Otherwise she is able to detect light sensation to touch over the pads of all digits. Her peripheral pulses are 2+. Results & Data Vital Signs (Past 12 Hours) Vital Signs Temp Pulse Pulse Resp BP Pulse Ox O2 Del Method 01/18/24 07:10 36.7 C 84 19 104/64 95 Room Air 01/18/24 03:37 36.6 C 77 18 141/50 H 98 Room Air 01/18/24 01:08 01/17/24 23:43 36.6 C 77 20 119/67 96 Room Air 01/17/24 22:29 84 O2 Del Method 01/18/24 07:10 01/18/24 03:37 01/18/24 01:08 Room Air 01/17/24 23:43 01/17/24 22:29 Diagnostic Findings Laboratory Results WBC 4.83 K/ul (4.8-10.8) 01/18/24 05:40 RBC 4.15 M/uL (4.20-5.40) L 01/18/24 05:40 Hgb 12.7 g/dl (12.0-16.0) 01/18/24 05:40 Hct 36.6 % (37.0-47.0) L 01/18/24 05:40 MCV 88.2 fL (80.0-100.0) 01/18/24 05:40 MCH 30.6 pg (25.0-34.0) 01/18/24 05:40 MCHC 34.7 g/dL (32.0-36.0) 01/18/24 05:40 RDW Std Deviation 44.4 fL (36.4-46.3) 01/18/24 05:40 RDW Coeff of Marielos 13.7 % (11.5-14.5) 01/18/24 05:40 Plt Count 205 K/uL (130-400) 01/18/24 05:40 MPV 11.5 fL (9.4-12.4) 01/18/24 05:40 Immature Gran % (Auto) 0.2 % 01/18/24 05:40 Neut % (Auto) 45.7 % 01/18/24 05:40 Lymph % (Auto) 40.0 % 01/18/24 05:40 Inyo % (Auto) 11.8 % 01/18/24 05:40 Eos % (Auto) 1.7 % 01/18/24 05:40 Baso % (Auto) 0.6 % 01/18/24 05:40 Neut # (Auto) 2.21 K/uL (1.40-6.50) 01/18/24 05:40 Lymph # (Auto) 1.93 K/uL (1.20-3.40) 01/18/24 05:40 Inyo # (Auto) 0.57 K/uL (0.11-0.59) 01/18/24 05:40 Eos # (Auto) 0.08 K/uL (0.00-0.50) 01/18/24 05:40 Baso # (Auto) 0.03 K/uL (0.00-0.20) 01/18/24 05:40 Immature Gran # (Auto) 0.01 K/uL (0.01-0.20) 01/18/24 05:40 PT 11.8 Seconds (9.0-12.0) 01/16/24 19:53 INR 1.1 (0.9-1.1) 01/16/24 19:53 APTT 23 Seconds (21-31) 01/17/24 01:01 PTT Ratio 0.9 01/17/24 01:01 D-Dimer 650 ug/L FEU (0-500) H* 01/17/24 01:01 Heparin Anti-Xa, Unfract < 0.10 IU/ml (0.3-0.7) L 01/17/24 16:05 Sodium 143 mmol/L (136-145) 01/18/24 05:40 Potassium 3.0 mmol/L (3.5-5.1) L 01/18/24 05:40 Chloride 106 mmol/L (98-107) 01/18/24 05:40 Carbon Dioxide 29 mmol/L (21-32) 01/18/24 05:40 Anion Gap 8 (3-11) 01/18/24 05:40 BUN 10 mg/dl (6-23) 01/18/24 05:40 Creatinine 1.52 mg/dl (0.6-1.2) H 01/18/24 05:40 Est Cr Clr Drug Dosing 48.3 ml/min 01/18/24 05:40 eGFR 37.59 01/18/24 05:40 BUN/Creatinine Ratio 6.6 (10-20) L 01/18/24 05:40 Glucose 95 mg/dl (70-99(Fasting)) 01/18/24 05:40 Calcium 9.0 mg/dl (8.6-10.3) 01/18/24 05:40 Phosphorus 3.8 mg/dl (2.5-4.9) 01/18/24 05:40 Magnesium 1.8 mg/dl (1.7-2.4) 01/18/24 05:40 Total Bilirubin 0.9 mg/dl (0.2-1.0) 01/16/24 19:53 AST 20 U/L (13-39) 01/16/24 19:53 ALT 14 U/L (7-52) 01/16/24 19:53 Alkaline Phosphatase 60 U/L (34-104) 01/16/24 19:53 Total Creatine Kinase 149 U/L (26-192) 01/16/24 19:53 Troponin I High Sens 16.1 pg/ml (0-14) H 01/17/24 08:31 Total Protein 6.9 gm/dl (6.0-8.3) 01/16/24 19:53 Albumin 4.0 gm/dl (3.4-5.0) 01/16/24 19:53 Globulin 2.9 gm/dl (2.5-4.0) 01/16/24 19:53 Albumin/Globulin Ratio 1.4 (0.9-2) 01/16/24 19:53 Lipase 33 U/L (11-82) 01/16/24 19:53 Procalcitonin < 0.02 ng/ml (0-0.5) 01/16/24 19:53 TSH 4.520 uIu/ml (0.300-4.500) H 01/16/24 19:53 Free T4 0.92 ng/dl (0.61-1.60) 01/16/24 19:53 Urine Color Yellow 01/16/24 22:12 Urine Appearance Cloudy (Clear) A 01/16/24 22:12 Urine pH 5.5 (4.5-7.5) 01/16/24 22:12 Ur Specific Xenia 1.015 (1.000-1.030) 01/16/24 22:12 Urine Protein Trace (Negative) H 01/16/24 22:12 Urine Glucose (UA) Negative (Negative) 01/16/24 22:12 Urine Ketones Trace (Negative) H 01/16/24 22:12 Urine Blood Negative (Negative) 01/16/24 22:12 Urine Nitrite Negative (Negative) 01/16/24 22:12 Urine Bilirubin Negative (Negative) 01/16/24 22:12 Urine Urobilinogen Negative (Negative) 01/16/24 22:12 Ur Leukocyte Esterase 3+ (Negative) H 01/16/24 22:12 Urine WBC (Auto) 21-50 /hpf (0-5) H 01/16/24 22:12 Urine RBC (Auto) 3-5 /hpf (0-2) H 01/16/24 22:12 U Hyaline Cast (Auto) >20 /lpf (0-2) H 01/16/24 22:12 U Epithel Cells (Auto) 3-5 /hpf (0-2) H 01/16/24 22:12 Urine Bacteria (Auto) None Seen (None Seen) 01/16/24 22:12 Calcium Oxalate Crystal Present (None Prsent) A 01/16/24 22:12 Hyaline Casts Present /lpf (None Presnt) A 01/16/24 22:12 Adenovirus (PCR) Not Detected (NotDetected) 01/16/24 19:42 B. pertussis DNA (PCR) Not Detected (NotDetected) 01/16/24 19:42 B.parapertussis DNA PCR Not Detected (NotDetected) 01/16/24 19:42 C. pneumoniae DNA (PCR) Not Detected (NotDetected) 01/16/24 19:42 Coronavirus OC43 (PCR) Not Detected (NotDetected) 01/16/24 19:42 Coronavirus HKU1 (PCR) Not Detected (NotDetected) 01/16/24 19:42 Coronavirus 229E (PCR) Not Detected (NotDetected) 01/16/24 19:42 SARS-CoV-2 (PCR) Not Detected (NotDetected) 01/16/24 19:42 Coronavirus NL63 (PCR) Not Detected (NotDetected) 01/16/24 19:42 Human Metapneumovir PCR Not Detected (NotDetected) 01/16/24 19:42 Influenza Type A (PCR) Not Detected (NotDetected) 01/16/24 19:42 Influenza Type B (PCR) Not Detected (NotDetected) 01/16/24 19:42 M. pneumoniae (PCR) Not Detected (NotDetected) 01/16/24 19:42 Parainfluenza 1 (PCR) Not Detected (NotDetected) 01/16/24 19:42 Parainfluenza 2 (PCR) Not Detected (NotDetected) 01/16/24 19:42 Parainfluenza 3 (PCR) Not Detected (NotDetected) 01/16/24 19:42 Parainfluenza 4 (PCR) Not Detected (NotDetected) 01/16/24 19:42 RSV (PCR) Not Detected (NotDetected) 01/16/24 19:42 Entero/Rhino (PCR) Not Detected (NotDetected) 01/16/24 19:42 Impressions Chest X-Ray 01/16/24 19:19 Exam(s): XR CXR 1 VIEW EXAM: XR Chest, 1 View CLINICAL HISTORY: Reason for exam: weakness. TECHNIQUE: Frontal view of the chest. COMPARISON: X-ray chest: 11/02/2020 FINDINGS: Lungs: Demonstrates prominent perihilar bronchovascular/interstitial markings in both lung de jesus. No consolidation. Pleural space: No pleural effusion. No pneumothorax. Heart: Mild cardiomegaly. Mediastinum: Atherosclerotic tortuosity of the thoracic aorta. Normal mediastinal contour. Bones/joints: Osteopenia. No obvious acute fracture. Degenerative changes of the spine and shoulders. IMPRESSION: Bilateral bronchial wall thickening and perihilar bronchovascular/increased interstitial markings. No consolidation or pleural effusion. . Electronically signed by: Jonathan Thao MD, DABR 01/16/24 21:06 PM Ankle X-Ray 01/16/24 19:37 Exam(s): XR RIGHT ANKLE, 3+ views EXAM: XR Right Ankle Complete, 3 or More Views CLINICAL HISTORY: Reason for exam: fall. TECHNIQUE: Frontal, lateral and oblique views of the right ankle. COMPARISON: None. FINDINGS: Bones/joints: Osseous demineralization. No acute left ankle fracture. No dislocation. Plantar calcaneal spur. Posterior calcaneal enthesophyte. Suspect fracture of the medial cortex of the navicular bone. Soft tissues: Soft tissue swelling of the ankle more medially/anteriorly. IMPRESSION: Suspect fracture of the medial cortex of the left navicular bone. Recommend clinical correlation. No acute left ankle fracture identified. Medially soft tissue edema/swelling of the left ankle. . Electronically signed by: Jonathan Thao MD, SANDEEPR 01/16/24 23:[address] 01/16/24 19:37 Exam(s): CT C SPINE EXAM: CT Cervical Spine Without Intravenous Contrast CLINICAL HISTORY: Reason for exam: falls, pain. TECHNIQUE: Axial computed tomography images of the cervical spine without intravenous contrast. CTDI is 29.22 mGy and DLP is 573 mGy-cm. Automated exposure control was utilized for the study. A dose lowering technique was utilized adhering to the principles of ALARA. COMPARISON: None. FINDINGS: Motion-induced image degradation. Vertebrae: Normal alignment of the spine. No malalignment. A C7 vertebral superior endplate mild compression deformity/ fracture of indeterminant age (series 603 image 48). No other cervical vertebral acute fracture identified. Discs/spinal canal/neural foramina: No acute findings. No spinal canal stenosis. Soft tissues: Unremarkable. Lung apices: Interstitial thickening/patchy parenchymal groundglass opacities. IMPRESSION: Demonstrates a C7 vertebral superior endplate mild compression deformity/fracture of indeterminant age. Recommend clinical correlation. Otherwise no acute osseous injury to the cervical spine identified. . Electronically signed by: Jonathan Thao MD, DABR 01/16/24 22:[address] 01/16/24 19:37 Exam(s): CT HEAD Without Contrast EXAM: CT Head Without Intravenous Contrast CLINICAL HISTORY: Reason for exam: falls, shaky. TECHNIQUE: Axial computed tomography images of the head/brain without intravenous contrast. CTDI is 65.68 mGy and DLP is 961.59 mGy-cm. Automated exposure control was utilized for the study. A dose lowering technique was utilized adhering to the principles of ALARA. COMPARISON: MRI brain: 10/21/2006 FINDINGS: Image diagnostic quality is reduced by motion and beam hardening artifacts. Brain: There is no acute intracranial hemorrhage, mass-effect or midline shift. Focal zone of decreased attenuation in the left basal ganglia, likely an old infarct. Ventricles: Age-related mild/moderate cerebral atrophy with widening of the extra-axial spaces/ventricular dilatation. Periventricular/subcortical areas of decreased attenuation, from likely chronic microvascular disease. Bones/joints: Unremarkable. No acute fracture. Soft tissues: Unremarkable. Sinuses: Unremarkable as visualized. No acute sinusitis. Mastoid air cells: Unremarkable as visualized. No mastoid effusion.. IMPRESSION: Limited exam No acute intracranial abnormality is evident . Electronically signed by: Jonathan Thao MD, DABR 01/16/24 22:45 PM Abdomen/Pelvis CT 01/16/24 20:34 Exam(s): CT ABDOMEN + PELVIS Without Contrast EXAM: CT Abdomen and Pelvis Without Intravenous Contrast CLINICAL HISTORY: Reason for exam: falls, low back pain, MADAN. TECHNIQUE: Axial computed tomography images of the abdomen and pelvis without intravenous contrast. CTDI is 33.6 mGy and DLP is 2248 mGy-cm. Automated exposure control was utilized for the study. A dose lowering technique was utilized adhering to the principles of ALARA. COMPARISON: None. FINDINGS: Lack of IV contrast limits evaluation of soft tissues/vascular structures. Lung bases: No mass. No consolidation. No pleural effusion. Proximal ascending aortic mild aneurysm: 42 mm. Calcified right coronary artery visualized. 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 ABDOMEN: Liver: A 1.9 cm ring calcified structure is seen in the dome of the right hepatic lobe, most likely benign (series 1000 image 44).. Gallbladder and bile ducts: Prior cholecystectomy. No ductal dilation. Pancreas: Pancreatic fatty infiltration , mild/moderate atrophy. No ductal dilation. Spleen: Unremarkable. No splenomegaly. Adrenals: Unremarkable. No mass. Kidneys and ureters: A 2.5 x 2.2 cm ring calcified exophytic structure is seen laterally from the mid right kidney (series 11 image 36, series 1000, image 65). No obstructing stones. No hydronephrosis. Stomach and bowel: A small hiatal hernia. Nonspecific mucosal/wall thickening of the cecum/ascending colon, this could be related to acute colitis versus incomplete distention (series 11 image 54, series 1000 image 52). No obstruction. PELVIS: Appendix: No findings to suggest acute appendicitis. Bladder: Unremarkable. No stones. Reproductive: Prior hysterectomy. ABDOMEN and PELVIS: Intraperitoneal space: No free air. No significant fluid collection. Bones/joints: No acute fracture. No dislocation. At T9-T10: Moderate degenerative spondylitic changes. Lower lumbosacral facet osteoarthropathy. Moderate bilateral hip osteoarthrosis. Soft tissues: Unremarkable. Vasculature: Mild/moderate infrarenal aortic atherosclerosis. No abdominal aortic aneurysm. Lymph nodes: No enlarged lymph nodes.. IMPRESSION: Nonspecific mucosal/wall thickening of the cecum/ascending colon, could be related to acute colitis versus incomplete distention. Recommend clinical correlation. A 2.5 x 2.2 cm ring calcified exophytic structure seen laterally a from the mid right kidney, likely a complex cyst. Renal ultrasound correlation is advised. . Electronically signed by: Jonathan Thao MD, DABR 01/17/24 00:[address] 01/16/24 20:34 Exam(s): CT CHEST Without Contrast EXAM: CT Chest Without Intravenous Contrast CLINICAL HISTORY: Reason for exam: falls, CP. TECHNIQUE: Axial computed tomography images of the chest without intravenous contrast. CTDI is 33.67 mGy and DLP is 2248 mGy-cm. Automated exposure control was utilized for the study. A dose lowering technique was utilized adhering to the principles of ALARA. COMPARISON: CTA chest 11/02/2020 FINDINGS: Lungs: No pulmonary contusion. Unchanged 5 mm pulmonary nodular in the periphery of the right upper lobe. Pleural space: No pleural effusion or pneumothorax. Heart: Unremarkable. Bones/joints: No acute fracture. Soft tissues: Unremarkable. Vasculature: Aneurysmal ascending thoracic aorta up to 4.7 cm. Lymph nodes: Unremarkable. IMPRESSION: 1. No acute abnormality. 2. Aneurysmal ascending thoracic aorta up to 4.7 cm. Electronically signed by: Gurjit Dickson MD 01/17/24 00:[address] 01/16/24 20:39 Exam(s): CT L SPINE EXAM: CT Lumbar Spine Without Intravenous Contrast CLINICAL HISTORY: Reason for exam: fall, pain. TECHNIQUE: Axial computed tomography images of the lumbar spine without intravenous contrast. CTDI is 29 mGy and DLP is 573 mGy-cm. Automated exposure control was utilized for the study. A dose lowering technique was utilized adhering to the principles of ALARA. COMPARISON: No relevant prior studies available. FINDINGS: Vertebrae: No acute fracture or malalignment. Soft tissues: Unremarkable. IMPRESSION: No acute findings in the lumbar spine. Electronically signed by: Gurjit Dickson MD 01/17/24 00:38 AM Foot X-Ray 01/16/24 23:06 Exam(s): XR LEFT FOOT EXAM: XR Left Foot Complete, 3 or More Views CLINICAL HISTORY: Reason for exam: pain ?frx. TECHNIQUE: Frontal, lateral and oblique views of the left foot. COMPARISON: No relevant prior studies available. FINDINGS: Bones/joints: No acute fracture or malalignment. Pes cavus. Calcaneal enthesophytes. Soft tissues: Unremarkable. IMPRESSION: No acute fracture or malalignment. Electronically signed by: Gurjit Dickson MD 01/17/24 00:47 AM Venous Doppler Study 01/17/24 01:55 EXAM: US venous doppler LE BI CLINICAL HISTORY: HX: NO PREV. ELEVATED D DIMER. EXAM LIMITED BY INCREASED BODY HABITUS, BMI 42. TECH NOTES: NO OBVIOUS DVT BILAT LOWER EXT. TECHNIQUE: Ultrasound examination of bilateral lower extremity veins was performed in real time and duplex. One or more of the following were performed- spectral analysis, resistive index, waveform analysis, and pulsed Doppler. COMPARISON: None. FINDINGS: Normal phasic, non-pulsatile and spontaneous flow is noted in bilateral GSV, common femoral, superficial femoral, popliteal and posterior tibial, anterior tibial and peroneal veins. Visualized veins of both lower extremities demonstrate normal compressibility. No sonographic evidence of acute deep vein thrombosis (DVT) is detected in the visualized veins of both lower extremities. Compression and Augmentation: All evaluated veins compress fully with applied transducer pressure. Augmentation of venous flow is noted with distal compression. Additional Findings: No evidence of intraluminal thrombus. IMPRESSION: No sonographic evidence of acute DVT detected in bilateral lower extremity veins, at the time of examination. Disclaimer: DVT could be missed early in the disease when clot burden is minimal. For patients with moderate and high pretest probability of DVT and negative ultrasound, the [employer] [employer] clinical guidelines recommend testing with a D-dimer assay or repeat ultrasound in 5-7 days. If symptoms worsen, the Society of radiologists in ultrasound recommends repeating ultrasound even earlier. Electronically signed by Bob Adams 01-17-2024 05:11 AM Pulmonary Perfusion Imaging 01/17/24 05:38 NM pul perfusion HISTORY: 68 years-old Female cp sob; pls call md calderon result once available due to chest pain with shortness of breath COMPARISON: Duplex venous Doppler study of same day, chest CT 01/16/2024 TECHNIQUE: Nuclear medicine perfusion scan was obtained following the intravenous administration of 5.2 mCi technetium 99 MDP administered via the right upper extremity. Ventilation images were not obtained secondary to ongoing droplet precautions. FINDINGS: Comparison chest CT demonstrates no airspace consolidation. Comparison duplex venous Doppler study demonstrates no DVT. No large segmental perfusion defects. IMPRESSION: Low probability for pulmonary embolus. ACT 112: Negative or not required by law. The above report was generated using voice recognition software. It may contain grammatical, syntax or spelling errors. Electronically signed by: Rishi Romero M.D. 01/17/2024 10:41 AM
--- NOTE | 2024-01-18 13:11 | Hospitalist Progress Note ---
Date of Service January 18, 2024 Assessment & Plan (1) Atypical chest pain: Plan Pt is a 68yoF with Medical history significant for chronic diastolic heart failure (EF 61%, TTE 2022), nonocclusive CAD, PVD, hypertension, CRI (baseline creatinine 1.7), AMIRA on CPAP, GERD, anxiety/mood disorder/schizophrenia/fibromyalgia, hypothyroidism, prediabetes who presents with cough and recent fall. Currently awaiting placement at acute rehab Atypical chest pain with exertional SOB and troponin elevation Trop Downtrended Continue to monitor on telemetry Resolved Viral bronchitis Concern for PE no sepsis for now Chest XR and chest CT with no acute abnormality rule out PE given abnormal D-dimer -venous doppler negative -V/Q scan low probability for DVT -IV heparin discontinued Supportive management for viral bronchitis Complicated UTI UA suggestive of infection urine Cx with no significant growth On rocephin, transitioned to p.o. cefdinir Diarrhea secondary to viral illness rule out C. difficile given recent antibiotic Rx ARF on CKD secondary to illness Holding home nephrotoxic meds- diuretics ARB Continue to monitor L navicular fracture ortho consult Right kidney cyst incidental finding on CT Outpt followup Chronic Medical Problems: nonocclusive CAD/PVD hypertension, stable AMIRA on CPAP GERD, chest pain reminiscent of GERD attack as per patient anxiety/mood disorder/schizophrenia/fibromyalgia hypothyroidism, TSH slightly elevated prediabetes, hemoglobin A1c of 5.9 last June 2023 Right kidney cyst, incidental finding on CT Left navicular fracture Ambulatory dysfunction PT OT eval once medically stable -recommending acute rehab DVT prophylaxis. heparin SQ Full code Admission and Anticipated Discharge Date Admission Date: January 16, 2024 Subjective patient was seen laying in bed States that her chest pain had resolved as well as the shortness of breath. States that she is still "shaky" but notes that this is chronic for her and she has been following with her PCP about this. Otherwise denies acute concerns Review of Systems Review of Systems: All systems reviewed & are unremarkable except as noted in Subjective Physical Exam Physical Exam: General: Alert, oriented. No acute distress Psych: Appropriate mood and affect Neuro: tremors noted in the upper extremities with extension HEENT: NC/AT CV: RRR Resp: Breath sounds clear bilaterally, no increased effort of breathing Abdomen: Soft, nontender Extremities: edema in lower extremities bilaterally. Results & Data Results & Data Vital Signs (Past 12 Hours) Vital Signs Temp Pulse Resp BP Pulse Ox O2 Del Method 01/18/24 12:07 36.5 C 81 19 127/84 95 Room Air 01/18/24 07:10 36.7 C 84 19 104/64 95 Room Air 01/18/24 03:37 36.6 C 77 18 141/50 H 98 Room Air
[2024-01-18] MEDS: POTASSIUM CHLORIDE CRTAB 20 MEQ TABCR PO STA (14:01)
--- NOTE | 2024-01-18 16:16 | Electrocardiogram Report ---
Test Reason : Blood Pressure : */* mmHG Vent. Rate : 87 BPM Atrial Rate : 87 BPM P-R Int : 184 ms QRS Dur : 98 ms QT Int : 382 ms P-R-T Axes : 46 -14 26 degrees QTcB Int : 459 ms Poor data quality, interpretation may be adversely affected Normal sinus rhythm Normal ECG When compared with ECG of 02-Nov-2020 00:42, No significant change Confirmed by Elijah Quan ([id number]) on 01/18/2024 4:15:30 PM Referred By: REFERRED SELF Confirmed By: Elijah Quan
[2024-01-18] MEDS: POTASSIUM CHLORIDE CRTAB 20 MEQ TABCR PO SCH (20:28)
[2024-01-18] MEDS: CEFDINIR 300 MG CAP PO SCH (20:31)
[2024-01-18] MEDS: LORazepam 0.5 MG TAB PO PRN (22:43)
[2024-01-19] MEDS: MAGNESIUM SULFATE / D5W 1 GM/100 ML BAG IV ONE (00:11)
[2024-01-19] MEDS: ALBUT/IPRATROP 3MG/0.5MG NEB 3 ML VIAL NEB STA (00:18)
--- NOTE | 2024-01-19 01:22 | XRay Report ---
EXAM: XR chest 1V portable CLINICAL HISTORY: SOB JMF TECHNIQUE: Radiograph of chest was acquired. COMPARISON: 16 January 2024. FINDINGS: Obliquity noted. Ground glassing/haziness is noted in the left lower zone, likely due to obliquity. Prominence of the perihilar markings are noted. Rest of the lungs are clear and well-expanded with no pulmonary infiltrate. No pleural effusion is detected. Cardiomegaly seen. Unfolding of the aorta is noted. Rest of the findings are unchanged compared to the previous radiograph. IMPRESSION: 1. Ground glassing/haziness is noted in the left lower zone, likely due to obliquity. 2. Prominence of the perihilar markings are noted. 3. Cardiomegaly seen. Findings are unchanged compared to the previous radiograph. No significant interval new findings noted as compared to the previous radiograph. Electronically signed by Cosmo Owusu 01-19-2024 01:21 AM
[2024-01-19 06:25] LABS: Basophils # (auto) 0.02 K/uL (0.00-0.20); Basophils % (auto) 0.5 %; Eosinophils # (auto) 0.08 K/uL (0.00-0.50); Hemoglobin 12.3 g/dl (12.0-16.0); Immature Granulocytes # (auto) 0.01 K/uL (0.01-0.20); Immature Granulocytes % (auto) 0.2 %; Lymphocytes # (auto) 1.79 K/uL (1.20-3.40); Lymphocytes % (auto) 44.6 %; Mean Corpuscular Hemoglobin 30.8 pg (25.0-34.0); Mean Corpuscular Hgb Conc 34.2 g/dL (32.0-36.0); Mean Corpuscular Volume 90.2 fL (80.0-100.0); Mean Platelet Volume 11.5 fL (9.4-12.4); Monocytes # (auto) 0.46 K/uL (0.11-0.59); Monocytes % (auto) 11.5 %; Neutrophils # (auto) 1.65 K/uL (1.40-6.50); Neutrophils % (auto) 41.2 %; Platelet Count 200 K/uL (130-400); RDW Standard Deviation 46.3 fL (36.4-46.3); Red Blood Count 3.99 M/uL (4.20-5.40); White Blood Count 4.01 K/ul (4.8-10.8)
[2024-01-19 06:47] LABS: Creatinine Clr Calc Pharmacy 53.3 ml/min; Magnesium 2.2 mg/dl (1.7-2.4); Potassium 3.8 mmol/L (3.5-5.1)
--- NOTE | 2024-01-19 08:56 | Orthopedic Progress Note ---
Date of Service January 19, 2024 Assessment & Plan (1) Foot pain, left: Plan: IMPRESSION: Left foot pain secondarily to Accessary Navicular versus sprain Acute vs Acute on chronic Goals: Decrease pain PLAN: RICE. Continue pain control. Will obtain a high tide cam boot, wear iron assorter except for bathing, icing, and rehab. PT/OT WBAT in the boot Continue care per primary service Orthopedically patient is cleared for discharge. We will sign off Discharge instructions and follow-up have been scheduled Admission and Anticipated Discharge Date Admission Date: January 16, 2024 Subjective This 68-year-old female seen today for follow-up of a left foot navicular fracture and ankle sprain. She is currently laying in bed and seems fairly comfortable. She is not wearing the cam boot. She states she is not able to sleep as long as she has it on in bed. She does put it on as soon as she wakes up and has been weightbearing with it in place to the bathroom and back without significant discomfort. Currently she denies numbness or tingling in her left lower extremity. She denies chest pain, shortness of breath, fever, chills, sweats, nausea, vomiting, diarrhea or difficulty voiding. She states that her only issue is that she feels a little shaky. Review of Systems Review of Systems: All systems reviewed & are unremarkable except as noted in Subjective Physical Exam Physical Exam: Left foot/ankle: Patient has tenderness to palpation over the medial aspect of the navicular bone on the anteromedial surface. There is some mild edema but no erythema ecchymosis or skin breakdown. There is no discoloration or swelling to the plantar surface of her foot. She is able to actively dorsi and plantarflex and only has minimal discomfort with applied resistance. She does experience some slight discomfort with resisted internal and external rotation of her foot. Patient has some mild tenderness to palpation over the medial and lateral malleolus as well as over the peroneal and posterior tibial tendons. Otherwise she is able to detect light sensation to touch over the pads of all digits. Her peripheral pulses are 2+. Results & Data Vital Signs (Past 12 Hours) Vital Signs Temp Pulse Pulse Resp BP Pulse Ox Pulse Ox 01/19/24 07:54 70 01/19/24 07:20 36.7 C 81 20 109/66 98 01/19/24 02:07 36.6 C 78 18 117/75 97 01/19/24 01:00 95 01/19/24 00:18 90 18 94 01/19/24 00:18 90 20 94 01/18/24 22:24 36.8 C 86 16 108/70 96 01/18/24 21:56 103 H O2 Del Method O2 Del Method O2 Flow Rate 01/19/24 07:54 01/19/24 07:20 Nasal CPAP 01/19/24 02:07 CPAP 01/19/24 01:00 Room Air 01/19/24 00:18 2 01/19/24 00:18 Room Air 01/18/24 22:24 Room Air 01/18/24 21:56 Diagnostic Findings Laboratory Results WBC 4.01 K/ul (4.8-10.8) L 01/19/24 05:57 RBC 3.99 M/uL (4.20-5.40) L 01/19/24 05:57 Hgb 12.3 g/dl (12.0-16.0) 01/19/24 05:57 Hct 36.0 % (37.0-47.0) L 01/19/24 05:57 MCV 90.2 fL (80.0-100.0) 01/19/24 05:57 MCH 30.8 pg (25.0-34.0) 01/19/24 05:57 MCHC 34.2 g/dL (32.0-36.0) 01/19/24 05:57 RDW Std Deviation 46.3 fL (36.4-46.3) 01/19/24 05:57 RDW Coeff of Marielos 14.0 % (11.5-14.5) 01/19/24 05:57 Plt Count 200 K/uL (130-400) 01/19/24 05:57 MPV 11.5 fL (9.4-12.4) 01/19/24 05:57 Immature Gran % (Auto) 0.2 % 01/19/24 05:57 Neut % (Auto) 41.2 % 01/19/24 05:57 Lymph % (Auto) 44.6 % 01/19/24 05:57 [place] % (Auto) 11.5 % 01/19/24 05:57 Eos % (Auto) 2.0 % 01/19/24 05:57 Baso % (Auto) 0.5 % 01/19/24 05:57 Neut # (Auto) 1.65 K/uL (1.40-6.50) 01/19/24 05:57 Lymph # (Auto) 1.79 K/uL (1.20-3.40) 01/19/24 05:57 [place] # (Auto) 0.46 K/uL (0.11-0.59) 01/19/24 05:57 Eos # (Auto) 0.08 K/uL (0.00-0.50) 01/19/24 05:57 Baso # (Auto) 0.02 K/uL (0.00-0.20) 01/19/24 05:57 Immature Gran # (Auto) 0.01 K/uL (0.01-0.20) 01/19/24 05:57 PT 11.8 Seconds (9.0-12.0) 01/16/24 19:53 INR 1.1 (0.9-1.1) 01/16/24 19:53 APTT 23 Seconds (21-31) 01/17/24 01:01 PTT Ratio 0.9 01/17/24 01:01 D-Dimer 650 ug/L FEU (0-500) H* 01/17/24 01:01 Heparin Anti-Xa, Unfract < 0.10 IU/ml (0.3-0.7) L 01/17/24 16:05 Sodium 144 mmol/L (136-145) 01/19/24 05:57 Potassium 3.8 mmol/L (3.5-5.1) D 01/19/24 05:57 Chloride 108 mmol/L (98-107) H 01/19/24 05:57 Carbon Dioxide 30 mmol/L (21-32) 01/19/24 05:57 Anion Gap 6 (3-11) 01/19/24 05:57 BUN 11 mg/dl (6-23) 01/19/24 05:57 Creatinine 1.37 mg/dl (0.6-1.2) H 01/19/24 05:57 Est Cr Clr Drug Dosing 53.3 ml/min 01/19/24 05:57 eGFR 42.59 01/19/24 05:57 BUN/Creatinine Ratio 8.0 (10-20) L 01/19/24 05:57 Glucose 93 mg/dl (70-99(Fasting)) 01/19/24 05:57 Calcium 9.0 mg/dl (8.6-10.3) 01/19/24 05:57 Phosphorus 4.0 mg/dl (2.5-4.9) 01/19/24 05:57 Magnesium 2.2 mg/dl (1.7-2.4) 01/19/24 05:57 Total Bilirubin 0.9 mg/dl (0.2-1.0) 01/16/24 19:53 AST 20 U/L (13-39) 01/16/24 19:53 ALT 14 U/L (7-52) 01/16/24 19:53 Alkaline Phosphatase 60 U/L (34-104) 01/16/24 19:53 Total Creatine Kinase 149 U/L (26-192) 01/16/24 19:53 Troponin I High Sens 16.1 pg/ml (0-14) H 01/17/24 08:31 Total Protein 6.9 gm/dl (6.0-8.3) 01/16/24 19:53 Albumin 4.0 gm/dl (3.4-5.0) 01/16/24 19:53 Globulin 2.9 gm/dl (2.5-4.0) 01/16/24 19:53 Albumin/Globulin Ratio 1.4 (0.9-2) 01/16/24 19:53 Lipase 33 U/L (11-82) 01/16/24 19:53 Procalcitonin < 0.02 ng/ml (0-0.5) 01/16/24 19:53 TSH 4.520 uIu/ml (0.300-4.500) H 01/16/24 19:53 Free T4 0.92 ng/dl (0.61-1.60) 01/16/24 19:53 Urine Color Yellow 01/16/24 22:12 Urine Appearance Cloudy (Clear) A 01/16/24 22:12 Urine pH 5.5 (4.5-7.5) 01/16/24 22:12 Ur Specific [place] 1.015 (1.000-1.030) 01/16/24 22:12 Urine Protein Trace (Negative) H 01/16/24 22:12 Urine Glucose (UA) Negative (Negative) 01/16/24 22:12 Urine Ketones Trace (Negative) H 01/16/24 22:12 Urine Blood Negative (Negative) 01/16/24 22:12 Urine Nitrite Negative (Negative) 01/16/24 22:12 Urine Bilirubin Negative (Negative) 01/16/24 22:12 Urine Urobilinogen Negative (Negative) 01/16/24 22:12 Ur Leukocyte Esterase 3+ (Negative) H 01/16/24 22:12 Urine WBC (Auto) 21-50 /hpf (0-5) H 01/16/24 22:12 Urine RBC (Auto) 3-5 /hpf (0-2) H 01/16/24 22:12 U Hyaline Cast (Auto) >20 /lpf (0-2) H 01/16/24 22:12 U Epithel Cells (Auto) 3-5 /hpf (0-2) H 01/16/24 22:12 Urine Bacteria (Auto) None Seen (None Seen) 01/16/24 22:12 Calcium Oxalate Crystal Present (None Prsent) A 01/16/24 22:12 Hyaline Casts Present /lpf (None Presnt) A 01/16/24 22:12 Adenovirus (PCR) Not Detected (NotDetected) 01/16/24 19:42 B. pertussis DNA (PCR) Not Detected (NotDetected) 01/16/24 19:42 B.parapertussis DNA PCR Not Detected (NotDetected) 01/16/24 19:42 C. pneumoniae DNA (PCR) Not Detected (NotDetected) 01/16/24 19:42 Coronavirus OC43 (PCR) Not Detected (NotDetected) 01/16/24 19:42 Coronavirus HKU1 (PCR) Not Detected (NotDetected) 01/16/24 19:42 Coronavirus 229E (PCR) Not Detected (NotDetected) 01/16/24 19:42 SARS-CoV-2 (PCR) Not Detected (NotDetected) 01/16/24 19:42 Coronavirus NL63 (PCR) Not Detected (NotDetected) 01/16/24 19:42 Human Metapneumovir PCR Not Detected (NotDetected) 01/16/24 19:42 Influenza Type A (PCR) Not Detected (NotDetected) 01/16/24 19:42 Influenza Type B (PCR) Not Detected (NotDetected) 01/16/24 19:42 M. pneumoniae (PCR) Not Detected (NotDetected) 01/16/24 19:42 Parainfluenza 1 (PCR) Not Detected (NotDetected) 01/16/24 19:42 Parainfluenza 2 (PCR) Not Detected (NotDetected) 01/16/24 19:42 Parainfluenza 3 (PCR) Not Detected (NotDetected) 01/16/24 19:42 Parainfluenza 4 (PCR) Not Detected (NotDetected) 01/16/24 19:42 RSV (PCR) Not Detected (NotDetected) 01/16/24 19:42 Entero/Rhino (PCR) Not Detected (NotDetected) 01/16/24 19:42 Impressions Ankle X-Ray 01/16/24 19:37 Exam(s): XR RIGHT ANKLE, 3+ views EXAM: XR Right Ankle Complete, 3 or More Views CLINICAL HISTORY: Reason for exam: fall. TECHNIQUE: Frontal, lateral and oblique views of the right ankle. COMPARISON: None. FINDINGS: Bones/joints: Osseous demineralization. No acute left ankle fracture. No dislocation. Plantar calcaneal spur. Posterior calcaneal enthesophyte. Suspect fracture of the medial cortex of the navicular bone. Soft tissues: Soft tissue swelling of the ankle more medially/anteriorly. IMPRESSION: Suspect fracture of the medial cortex of the left navicular bone. Recommend clinical correlation. No acute left ankle fracture identified. Medially soft tissue edema/swelling of the left ankle. . Electronically signed by: Jonathan Thao MD, DABR 01/16/24 23:[address] 01/16/24 19:37 Exam(s): CT C SPINE EXAM: CT Cervical Spine Without Intravenous Contrast CLINICAL HISTORY: Reason for exam: falls, pain. TECHNIQUE: Axial computed tomography images of the cervical spine without intravenous contrast. CTDI is 29.22 mGy and DLP is 573 mGy-cm. Automated exposure control was utilized for the study. A dose lowering technique was utilized adhering to the principles of ALARA. COMPARISON: None. FINDINGS: Motion-induced image degradation. Vertebrae: Normal alignment of the spine. No malalignment. A C7 vertebral superior endplate mild compression deformity/ fracture of indeterminant age (series 603 image 48). No other cervical vertebral acute fracture identified. Discs/spinal canal/neural foramina: No acute findings. No spinal canal stenosis. Soft tissues: Unremarkable. Lung apices: Interstitial thickening/patchy parenchymal groundglass opacities. IMPRESSION: Demonstrates a C7 vertebral superior endplate mild compression deformity/fracture of indeterminant age. Recommend clinical correlation. Otherwise no acute osseous injury to the cervical spine identified. . Electronically signed by: Jonathan Thao MD, DABR 01/16/24 22:[address] 01/16/24 19:37 Exam(s): CT HEAD Without Contrast EXAM: CT Head Without Intravenous Contrast CLINICAL HISTORY: Reason for exam: falls, shaky. TECHNIQUE: Axial computed tomography images of the head/brain without intravenous contrast. CTDI is 65.68 mGy and DLP is 961.59 mGy-cm. Automated exposure control was utilized for the study. A dose lowering technique was utilized adhering to the principles of ALARA. COMPARISON: MRI brain: 10/21/2006 FINDINGS: Image diagnostic quality is reduced by motion and beam hardening artifacts. Brain: There is no acute intracranial hemorrhage, mass-effect or midline shift. Focal zone of decreased attenuation in the left basal ganglia, likely an old infarct. Ventricles: Age-related mild/moderate cerebral atrophy with widening of the extra-axial spaces/ventricular dilatation. Periventricular/subcortical areas of decreased attenuation, from likely chronic microvascular disease. Bones/joints: Unremarkable. No acute fracture. Soft tissues: Unremarkable. Sinuses: Unremarkable as visualized. No acute sinusitis. Mastoid air cells: Unremarkable as visualized. No mastoid effusion.. IMPRESSION: Limited exam No acute intracranial abnormality is evident . Electronically signed by: Jonathan Thao MD, DABR 01/16/24 22:45 PM Abdomen/Pelvis CT 01/16/24 20:34 Exam(s): CT ABDOMEN + PELVIS Without Contrast EXAM: CT Abdomen and Pelvis Without Intravenous Contrast CLINICAL HISTORY: Reason for exam: falls, low back pain, MADAN. TECHNIQUE: Axial computed tomography images of the abdomen and pelvis without intravenous contrast. CTDI is 33.6 mGy and DLP is 2248 mGy-cm. Automated exposure control was utilized for the study. A dose lowering technique was utilized adhering to the principles of ALARA. COMPARISON: None. FINDINGS: Lack of IV contrast limits evaluation of soft tissues/vascular structures. Lung bases: No mass. No consolidation. No pleural effusion. Proximal ascending aortic mild aneurysm: 42 mm. Calcified right coronary artery visualized. 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 ABDOMEN: Liver: A 1.9 cm ring calcified structure is seen in the dome of the right hepatic lobe, most likely benign (series 1000 image 44).. Gallbladder and bile ducts: Prior cholecystectomy. No ductal dilation. Pancreas: Pancreatic fatty infiltration , mild/moderate atrophy. No ductal dilation. Spleen: Unremarkable. No splenomegaly. Adrenals: Unremarkable. No mass. Kidneys and ureters: A 2.5 x 2.2 cm ring calcified exophytic structure is seen laterally from the mid right kidney (series 11 image 36, series 1000, image 65). No obstructing stones. No hydronephrosis. Stomach and bowel: A small hiatal hernia. Nonspecific mucosal/wall thickening of the cecum/ascending colon, this could be related to acute colitis versus incomplete distention (series 11 image 54, series 1000 image 52). No obstruction. PELVIS: Appendix: No findings to suggest acute appendicitis. Bladder: Unremarkable. No stones. Reproductive: Prior hysterectomy. ABDOMEN and PELVIS: Intraperitoneal space: No free air. No significant fluid collection. Bones/joints: No acute fracture. No dislocation. At T9-T10: Moderate degenerative spondylitic changes. Lower lumbosacral facet osteoarthropathy. Moderate bilateral hip osteoarthrosis. Soft tissues: Unremarkable. Vasculature: Mild/moderate infrarenal aortic atherosclerosis. No abdominal aortic aneurysm. Lymph nodes: No enlarged lymph nodes.. IMPRESSION: Nonspecific mucosal/wall thickening of the cecum/ascending colon, could be related to acute colitis versus incomplete distention. Recommend clinical correlation. A 2.5 x 2.2 cm ring calcified exophytic structure seen laterally a from the mid right kidney, likely a complex cyst. Renal ultrasound correlation is advised. . Electronically signed by: Jonathan Thao MD, DABR 01/17/24 00:[address] 01/16/24 20:34 Exam(s): CT CHEST Without Contrast EXAM: CT Chest Without Intravenous Contrast CLINICAL HISTORY: Reason for exam: falls, CP. TECHNIQUE: Axial computed tomography images of the chest without intravenous contrast. CTDI is 33.67 mGy and DLP is 2248 mGy-cm. Automated exposure control was utilized for the study. A dose lowering technique was utilized adhering to the principles of ALARA. COMPARISON: CTA chest 11/02/2020 FINDINGS: Lungs: No pulmonary contusion. Unchanged 5 mm pulmonary nodular in the periphery of the right upper lobe. Pleural space: No pleural effusion or pneumothorax. Heart: Unremarkable. Bones/joints: No acute fracture. Soft tissues: Unremarkable. Vasculature: Aneurysmal ascending thoracic aorta up to 4.7 cm. Lymph nodes: Unremarkable. IMPRESSION: 1. No acute abnormality. 2. Aneurysmal ascending thoracic aorta up to 4.7 cm. Electronically signed by: Gurjit Dickson MD 01/17/24 00:[address] 01/16/24 20:39 Exam(s): CT L SPINE EXAM: CT Lumbar Spine Without Intravenous Contrast CLINICAL HISTORY: Reason for exam: fall, pain. TECHNIQUE: Axial computed tomography images of the lumbar spine without intravenous contrast. CTDI is 29 mGy and DLP is 573 mGy-cm. Automated exposure control was utilized for the study. A dose lowering technique was utilized adhering to the principles of ALARA. COMPARISON: No relevant prior studies available. FINDINGS: Vertebrae: No acute fracture or malalignment. Soft tissues: Unremarkable. IMPRESSION: No acute findings in the lumbar spine. Electronically signed by: Gurjit Dickson MD 01/17/24 00:38 AM Foot X-Ray 01/16/24 23:06 Exam(s): XR LEFT FOOT EXAM: XR Left Foot Complete, 3 or More Views CLINICAL HISTORY: Reason for exam: pain ?frx. TECHNIQUE: Frontal, lateral and oblique views of the left foot. COMPARISON: No relevant prior studies available. FINDINGS: Bones/joints: No acute fracture or malalignment. Pes cavus. Calcaneal enthesophytes. Soft tissues: Unremarkable. IMPRESSION: No acute fracture or malalignment. Electronically signed by: Gurjit Dickson MD 01/17/24 00:47 AM Venous Doppler Study 01/17/24 01:55 EXAM: US venous doppler LE BI CLINICAL HISTORY: HX: NO PREV. ELEVATED D DIMER. EXAM LIMITED BY INCREASED BODY HABITUS, BMI 42. TECH NOTES: NO OBVIOUS DVT BILAT LOWER EXT. TECHNIQUE: Ultrasound examination of bilateral lower extremity veins was performed in real time and duplex. One or more of the following were performed- spectral analysis, resistive index, waveform analysis, and pulsed Doppler. COMPARISON: None. FINDINGS: Normal phasic, non-pulsatile and spontaneous flow is noted in bilateral GSV, common femoral, superficial femoral, popliteal and posterior tibial, anterior tibial and peroneal veins. Visualized veins of both lower extremities demonstrate normal compressibility. No sonographic evidence of acute deep vein thrombosis (DVT) is detected in the visualized veins of both lower extremities. Compression and Augmentation: All evaluated veins compress fully with applied transducer pressure. Augmentation of venous flow is noted with distal compression. Additional Findings: No evidence of intraluminal thrombus. IMPRESSION: No sonographic evidence of acute DVT detected in bilateral lower extremity veins, at the time of examination. Disclaimer: DVT could be missed early in the disease when clot burden is minimal. For patients with moderate and high pretest probability of DVT and negative ultrasound, the [employer] clinical guidelines recommend testing with a D-dimer assay or repeat ultrasound in 5-7 days. If symptoms worsen, the Society of radiologists in ultrasound recommends repeating ultrasound even earlier. Electronically signed by Bob Adams 01-17-2024 05:11 AM Pulmonary Perfusion Imaging 01/17/24 05:38 NM pul perfusion HISTORY: 68 years-old Female cp sob; pls call md calderon result once available due to chest pain with shortness of breath COMPARISON: Duplex venous Doppler study of same day, chest CT 01/16/2024 TECHNIQUE: Nuclear medicine perfusion scan was obtained following the intravenous administration of 5.2 mCi technetium 99 MDP administered via the right upper extremity. Ventilation images were not obtained secondary to ongoing droplet precautions. FINDINGS: Comparison chest CT demonstrates no airspace consolidation. Comparison duplex venous Doppler study demonstrates no DVT. No large segmental perfusion defects. IMPRESSION: Low probability for pulmonary embolus. ACT 112: Negative or not required by law. The above report was generated using voice recognition software. It may contain grammatical, syntax or spelling errors. Electronically signed by: Rishi Romero M.D. 01/17/2024 10:41 AM Chest X-Ray 01/18/24 23:58 EXAM: XR chest 1V portable CLINICAL HISTORY: SOB JMF TECHNIQUE: Radiograph of chest was acquired. COMPARISON: 16 January 2024. FINDINGS: Obliquity noted. Ground glassing/haziness is noted in the left lower zone, likely due to obliquity. Prominence of the perihilar markings are noted. Rest of the lungs are clear and well-expanded with no pulmonary infiltrate. No pleural effusion is detected. Cardiomegaly seen. Unfolding of the aorta is noted. Rest of the findings are unchanged compared to the previous radiograph. IMPRESSION: 1. Ground glassing/haziness is noted in the left lower zone, likely due to obliquity. 2. Prominence of the perihilar markings are noted. 3. Cardiomegaly seen. Findings are unchanged compared to the previous radiograph. No significant interval new findings noted as compared to the previous radiograph. Electronically signed by Cosmo Owusu 01-19-2024 01:21 AM
--- NOTE | 2024-01-19 12:12 | Hospitalist Progress Note ---
Date of Service January 19, 2024 Assessment & Plan (1) Atypical chest pain: Plan Pt is a 68yoF with Medical history significant for chronic diastolic heart failure (EF 61%, TTE 2022), nonocclusive CAD, PVD, hypertension, CRI (baseline creatinine 1.7), AMIRA on CPAP, GERD, anxiety/mood disorder/schizophrenia/fibromyalgia, hypothyroidism, prediabetes who presents with cough and recent fall. Currently awaiting placement at acute rehab Atypical chest pain with exertional SOB and troponin elevation Trop Downtrended Continue to monitor on telemetry Resolved Viral bronchitis Concern for PE no sepsis for now Chest XR and chest CT with no acute abnormality rule out PE given abnormal D-dimer -venous doppler negative -V/Q scan low probability for DVT -IV heparin discontinued Supportive management for viral bronchitis Complicated UTI UA suggestive of infection urine Cx with no significant growth On rocephin, transitioned to p.o. cefdinir Diarrhea secondary to viral illness rule out C. difficile given recent antibiotic Rx ARF on CKD secondary to illness Holding home nephrotoxic meds- diuretics ARB Continue to monitor L navicular fracture ortho consult Right kidney cyst incidental finding on CT Outpt followup Chronic Medical Problems: nonocclusive CAD/PVD hypertension, stable AMIRA on CPAP GERD, chest pain reminiscent of GERD attack as per patient anxiety/mood disorder/schizophrenia/fibromyalgia hypothyroidism, TSH slightly elevated prediabetes, hemoglobin A1c of 5.9 last June 2023 Right kidney cyst, incidental finding on CT Left navicular fracture Ambulatory dysfunction PT OT eval once medically stable -recommending acute rehab DVT prophylaxis. heparin SQ Full code Admission and Anticipated Discharge Date Admission Date: January 16, 2024 Subjective patient was seen in the morning Agreeable to going to acute rehab Denying any shortness of breath or chest tightness or chest pain, noting that those are still resolved. Patient's grandson called and updated. Agreeable to the plan. Review of Systems Review of Systems: All systems reviewed & are unremarkable except as noted in Subjective Physical Exam Physical Exam: General: Alert, oriented. No acute distress Psych: Appropriate mood and affect Neuro: tremors noted in the upper extremities with extension HEENT: NC/AT CV: RRR Resp: Breath sounds clear bilaterally, no increased effort of breathing Abdomen: Soft, nontender Extremities: edema in lower extremities bilaterally. Results & Data Results & Data Vital Signs (Past 12 Hours) Vital Signs Temp Pulse Pulse Resp BP Pulse Ox Pulse Ox 01/19/24 11:11 36.8 C 84 19 109/63 91 01/19/24 07:54 70 01/19/24 07:20 36.7 C 81 20 109/66 98 01/19/24 02:07 36.6 C 78 18 117/75 97 01/19/24 01:00 95 01/19/24 00:18 90 18 94 01/19/24 00:18 90 20 94 O2 Del Method O2 Del Method O2 Flow Rate 01/19/24 11:11 Room Air 01/19/24 07:54 01/19/24 07:20 Nasal CPAP 01/19/24 02:07 CPAP 01/19/24 01:00 Room Air 01/19/24 00:18 2 01/19/24 00:18 Room Air
[2024-01-20 06:15] LABS: BUN Creatinine Ratio 8.6 (10-20); Calcium 8.7 mg/dl (8.6-10.3); Creatinine Clr Calc Pharmacy 52.8 ml/min; Magnesium 1.9 mg/dl (1.7-2.4); Phosphorus 3.8 mg/dl (2.5-4.9); Potassium 3.8 mmol/L (3.5-5.1)
[2024-01-20 06:21] LABS: Basophils # (auto) 0.03 K/uL (0.00-0.20); Basophils % (auto) 0.7 %; Eosinophils # (auto) 0.13 K/uL (0.00-0.50); Eosinophils % (auto) 3.2 %; Hematocrit (blood only) 35.5 % (37.0-47.0); Lymphocytes # (auto) 1.78 K/uL (1.20-3.40); Lymphocytes % (auto) 44.3 %; Mean Corpuscular Hemoglobin 30.2 pg (25.0-34.0); Mean Corpuscular Hgb Conc 33.8 g/dL (32.0-36.0); Mean Corpuscular Volume 89.4 fL (80.0-100.0); Mean Platelet Volume 11.6 fL (9.4-12.4); Monocytes # (auto) 0.52 K/uL (0.11-0.59); Monocytes % (auto) 12.9 %; Neutrophils # (auto) 1.56 K/uL (1.40-6.50); Neutrophils % (auto) 38.9 %; Platelet Count 184 K/uL (130-400); RDW Standard Deviation 45.8 fL (36.4-46.3); Red Blood Count 3.97 M/uL (4.20-5.40); White Blood Count 4.02 K/ul (4.8-10.8)
--- NOTE | 2024-01-20 10:53 | Hospitalist Progress Note ---
Date of Service January 20, 2024 Assessment & Plan (1) Atypical chest pain: Plan Pt is a 68yoF with Medical history significant for chronic diastolic heart failure (EF 61%, TTE 2022), nonocclusive CAD, PVD, hypertension, CRI (baseline creatinine 1.7), AMIRA on CPAP, GERD, anxiety/mood disorder/schizophrenia/fibromyalgia, hypothyroidism, prediabetes who presents with cough and recent fall. Currently awaiting placement at acute rehab Atypical chest pain with exertional SOB and troponin elevation Trop Downtrended Continue to monitor on telemetry Resolved Viral bronchitis Concern for PE no sepsis for now Chest XR and chest CT with no acute abnormality rule out PE given abnormal D-dimer -venous doppler negative -V/Q scan low probability for DVT -IV heparin discontinued Supportive management for viral bronchitis Complicated UTI UA suggestive of infection urine Cx with no significant growth On rocephin, transitioned to p.o. cefdinir Diarrhea secondary to viral illness rule out C. difficile given recent antibiotic Rx Improving ARF on CKD secondary to illness Holding home nephrotoxic meds- diuretics, ARB ARF improved Will resume home torsemide and spironolactone on 01/19 Continue to monitor L navicular fracture ortho consult nonsurgical, pt given boot Right kidney cyst incidental finding on CT Outpt followup Chronic Medical Problems: nonocclusive CAD/PVD hypertension, stable AMIRA on CPAP GERD, chest pain reminiscent of GERD attack as per patient anxiety/mood disorder/schizophrenia/fibromyalgia hypothyroidism, TSH slightly elevated prediabetes, hemoglobin A1c of 5.9 last June 2023 Right kidney cyst, incidental finding on CT Left navicular fracture Ambulatory dysfunction PT OT eval once medically stable -recommending acute rehab DVT prophylaxis. heparin SQ Full code Admission and Anticipated Discharge Date Admission Date: January 16, 2024 Subjective patient was seen in the morning still denying any persistent shortness of breath or chest pain. Currently awaiting placement at rehab Downgraded Review of Systems Review of Systems: All systems reviewed & are unremarkable except as noted in Subjective Physical Exam Physical Exam: General: Alert, oriented. No acute distress Psych: Appropriate mood and affect Neuro: tremors noted in the upper extremities with extension HEENT: NC/AT CV: RRR Resp: Breath sounds clear bilaterally, no increased effort of breathing Abdomen: Soft, nontender Extremities: edema in lower extremities bilaterally. Results & Data Results & Data Vital Signs (Past 12 Hours) Vital Signs Temp Pulse Pulse Resp BP Pulse Ox Pulse Ox 01/20/24 07:51 36.2 C L 72 16 92/59 L 94 01/20/24 03:54 84 16 94 01/20/24 03:49 36.5 C 70 18 100/63 97 01/20/24 01:01 95 01/19/24 22:54 87 16 95 O2 Del Method O2 Del Method O2 Flow Rate 01/20/24 07:51 Room Air 01/20/24 03:54 2 01/20/24 03:49 CPAP 01/20/24 01:01 CPAP 01/19/24 22:54 2
[2024-01-20] MEDS: oxyCODONE HCL IR 5 MG TAB (IMMEDIATE RELEASE) PO PRN (11:55)
[2024-01-20] MEDS: TORSEMIDE 20 MG TAB PO SCH (15:48)
[2024-01-20] MEDS: GABAPENTIN 400 MG CAP PO SCH (22:20)
[2024-01-20] MEDS: CETIRIZINE HCL 10 MG TABLET PO SCH (22:25)
[2024-01-20] MEDS: DOXEPIN HCL 25 MG CAPSULE PO SCH (22:25)
[2024-01-21] MEDS: hydrOXYzine HCl 10 MG TAB PO PRN (08:51)
[2024-01-21] MEDS: SPIRONOLACTONE 25 MG TAB PO SCH (08:52)
--- NOTE | 2024-01-21 11:52 | Hospitalist Progress Note ---
Date of Service January 21, 2024 Assessment & Plan (1) Atypical chest pain: Plan Pt is a 68yoF with Medical history significant for chronic diastolic heart failure (EF 61%, TTE 2022), nonocclusive CAD, PVD, hypertension, CRI (baseline creatinine 1.7), AMIRA on CPAP, GERD, anxiety/mood disorder/schizophrenia/fibromyalgia, hypothyroidism, prediabetes who presents with cough and recent fall. Currently awaiting placement at acute rehab Atypical chest pain with exertional SOB and troponin elevation Trop Downtrended Continue to monitor on telemetry Resolved Viral bronchitis Concern for PE no sepsis for now Chest XR and chest CT with no acute abnormality rule out PE given abnormal D-dimer -venous doppler negative -V/Q scan low probability for DVT -IV heparin discontinued Supportive management for viral bronchitis Complicated UTI UA suggestive of infection urine Cx with no significant growth On rocephin, transitioned to p.o. cefdinir Diarrhea secondary to viral illness rule out C. difficile given recent antibiotic Rx Improving ARF on CKD secondary to illness Holding home nephrotoxic meds- diuretics, ARB ARF improved Will resume home torsemide and spironolactone on 01/19 Continue to monitor L navicular fracture ortho consult nonsurgical, pt given boot Right kidney cyst incidental finding on CT Outpt followup Chronic Medical Problems: nonocclusive CAD/PVD hypertension, stable AMIRA on CPAP GERD, chest pain reminiscent of GERD attack as per patient anxiety/mood disorder/schizophrenia/fibromyalgia hypothyroidism, TSH slightly elevated prediabetes, hemoglobin A1c of 5.9 last June 2023 Right kidney cyst, incidental finding on CT Left navicular fracture Ambulatory dysfunction PT OT eval once medically stable -recommending acute rehab DVT prophylaxis. heparin SQ Full code Admission and Anticipated Discharge Date Admission Date: January 16, 2024 Subjective patient was seen in the a.m. laying in bed resting comfortably She states today she feels very tired Discussion that her home medications of doxepin and cetirizine had been resumed overnight could be contributory. Patient agreeable to holding tonight and monitoring his symptoms States that she wants to either go to rehab tomorrow or be discharged to her daughter's house which she states there are no stairs to navigate. Does note that she has been ambulating with the boot to the bathroom. Review of Systems Review of Systems: All systems reviewed & are unremarkable except as noted in Subjective Physical Exam Physical Exam: General: Alert, oriented. No acute distress Psych: Appropriate mood and affect Neuro: tremors noted in the upper extremities with extension HEENT: NC/AT CV: RRR Resp: Breath sounds clear bilaterally, no increased effort of breathing Abdomen: Soft, nontender Extremities: edema in lower extremities bilaterally. Results & Data Results & Data Vital Signs (Past 12 Hours) Vital Signs Temp Pulse Pulse Resp BP Pulse Ox O2 Del Method 01/21/24 07:01 36.6 C 73 16 113/69 92 Room Air 01/21/24 02:34 72 15 95 O2 Flow Rate 01/21/24 07:01 01/21/24 02:34 2
[2024-01-21] MEDS: DOCUSATE SODIUM/SENNA 50/8.6MG TAB PO SCH (22:02)
[2024-01-21] MEDS: POLYETHYLENE (MIRALAX) 17 GM PACK PO STA (22:02)
[2024-01-22 07:01] LABS: Basophils # (auto) 0.02 K/uL (0.00-0.20); Basophils % (auto) 0.4 %; Eosinophils # (auto) 0.13 K/uL (0.00-0.50); Eosinophils % (auto) 2.4 %; Hemoglobin 12.4 g/dl (12.0-16.0); Immature Granulocytes # (auto) 0.01 K/uL (0.01-0.20); Immature Granulocytes % (auto) 0.2 %; Lymphocytes % (auto) 28.1 %; Mean Corpuscular Hemoglobin 30.6 pg (25.0-34.0); Mean Corpuscular Hgb Conc 33.5 g/dL (32.0-36.0); Mean Corpuscular Volume 91.4 fL (80.0-100.0); Mean Platelet Volume 11.6 fL (9.4-12.4); Monocytes # (auto) 0.63 K/uL (0.11-0.59); Monocytes % (auto) 11.8 %; Neutrophils # (auto) 3.05 K/uL (1.40-6.50); Neutrophils % (auto) 57.1 %; Platelet Count 196 K/uL (130-400); RDW Coefficient of Variation 14.4 % (11.5-14.5); RDW Standard Deviation 48.6 fL (36.4-46.3); Red Blood Count 4.05 M/uL (4.20-5.40); White Blood Count 5.34 K/ul (4.8-10.8)
[2024-01-22 07:20] LABS: BUN Creatinine Ratio 9.7 (10-20); Calcium 9.1 mg/dl (8.6-10.3); Creatinine Clr Calc Pharmacy 41.9 ml/min; Potassium 4.6 mmol/L (3.5-5.1)
[2024-01-22 07:36] VITALS: BP 127/83; PULSE 87; RESP 18; TEMP 98.4; O2SAT 92
[2024-01-22] MEDS: POLYETHYLENE (MIRALAX) 17 GM PACK PO PRN (11:27)
[2024-01-22] MEDS ORDERED: bisacodyL 5 MG TABEC PO PRN (12:37)
--- NOTE | 2024-01-22 16:22 | Discharge Summary ---
Discharge Summary Date of Service January 22, 2024 Principal Dx & Hospital Course #1 = Principal Diagnosis (1) Atypical chest pain: Plan Pt is a 68yoF with Medical history significant for chronic diastolic heart failure (EF 61%, TTE 2022), nonocclusive CAD, PVD, hypertension, CRI (baseline creatinine 1.7), AMIRA on CPAP, GERD, anxiety/mood disorder/schizophrenia/fibromyalgia, hypothyroidism, prediabetes who presents with cough and recent fall. Discharge was prolonged as pt was awaiting discharge to an acute rehab facility due to having multiple sets of stairs at home and having to navigate them with the boot. She stated that her daughter Robert had a home without stairs and would be willing to have her stay at her house. Pt was discharged to the care of her daughter. Atypical chest painresolved with exertional SOB and troponin elevation Chest imaging unremarkable for acute process EKG NSR Trop Downtrended Resolved on discharge Viral bronchitis Concern for PE no sepsis for now Chest XR and chest CT with no acute abnormality rule out PE given abnormal D-dimer -venous doppler negative -V/Q scan low probability for DVT -IV heparin discontinued Supportive management for viral bronchitis Aortic Aneurysm CTA chest noting "Aneurysmal ascending thoracic aorta up to 4.7 cm." PCP followup after discharge Complicated UTI UA suggestive of infection urine Cx with no significant growth On rocephin, transitioned to p.o. cefdinir Completed treatment before discharge Diarrhea secondary to viral illness rule out C. difficile given recent antibiotic Rx Improved on discharge Acute renal failure on CKD secondary to illness Held home nephrotoxic meds- diuretics, ARB Acute renal failure improved Resumed home torsemide and spironolactone on 01/19 Cr 1.7 on discharge Close PCP followup for continued monitoring L navicular fracture ortho consulted, appreciate recs Noted/stated the following: " RICE. Continue pain control. Will obtain a high tide cam boot, wear pull worker except for bathing, icing, and rehab. PT/OT WBAT in the boot Continue care per primary service Orthopedically patient is cleared for discharge. We will sign off Discharge instructions and follow-up have been scheduled" nonsurgical, pt given boot Please ensure followup with orthopedics Right kidney cyst incidental finding on CT Outpt pcp followup Chronic Medical Problems: nonocclusive CAD/PVD hypertension, stable AMIRA on CPAP GERD, chest pain reminiscent of GERD attack as per patient anxiety/mood disorder/schizophrenia/fibromyalgia hypothyroidism, TSH slightly elevated prediabetes, hemoglobin A1c of 5.9 last June 2023 Right kidney cyst, incidental finding on CT Left navicular fracture Ambulatory dysfunction Notes For Next Care Provider PCP FOLLOWUP for :Aneurysmal ascending thoracic aorta up to 4.7 cm. Please ensure followup with Orthopedics Close PCP followup for continued monitoring of kidney function with diuretic use, consider nephrology involvement if worsening Medication Changes From Visit Stop Doxepin and Lasix Admission HPI Per Admitting Provider History obtained from patient and records. Medical history significant for chronic diastolic heart failure (EF 61%, TTE 2022), nonocclusive CAD, PVD, hypertension, CRI (baseline creatinine 1.7), AMIRA on CPAP, GERD, anxiety/mood disorder/schizophrenia/fibromyalgia, hypothyroidism, prediabetes. Last confinement November 2020 for COVID-19 pneumonia. Patient received flu and RSV vaccines at local pharmacy 2 weeks ago. A few days later she noted shakiness and upset stomach. Outpatient UA grew E. coli UTI. Patient completed Augmentin course. Symptoms later followed by cough symptoms productive of clear sputum, chest pain similar to heartburn, and SOB symptoms mostly on exertion. Watery loose stools.. Falling at home with resulting head trauma without LOC. Worsening of achy left foot pain which has been bothering her for a few months now. Increased generalized weakness. IV ceftriaxone administered at the ER for possible UTI. Medical History as above Surgical History : Dental surgery, hand/finger surgery, hysterectomy, laparoscopic cholecystectomy, cataract surgeries, umbilical hernia repair Family History : Lung cancer, ovarian cancer, liver cancer, heart disease Personal/Social history : Non-smoker, no EtOH intake, retired [employer] Admission Exam Per Admitting Provider GENERAL: Anxious, morbidly obese, pleasant, no respiratory distress SKIN: Normal color, warm HEENT: Alda palpebral conjunctivae, no ptosis, dry buccal mucosa NECK : Supple, short neck, no tenderness CHEST : Decreased breath sounds, no tenderness HEART : RRR, no obvious murmurs ABDOMEN: distention, minimal epigastric tenderness EXTREMITIES : LLE splint, no other conspicuous deformities noted NEUROLOGIC : Coherent, no facial asymmetry, gait and stance not assessed Discharge Exam General: Alert, oriented. No acute distress Psych: Appropriate mood and affect Neuro: tremors noted in the upper extremities with extension HEENT: NC/AT CV: RRR Resp: Breath sounds clear bilaterally, no increased effort of breathing Abdomen: Soft, nontender Extremities: edema in lower extremities bilaterally. Updated Medication List Medication Instructions Recorded Confirmed Type aspirin 81 mg tablet,delayed 81 mg PO DAILY 10/12/18 01/17/24 History release (Aspir-) atorvastatin 20 mg tablet 40 mg PO PM 10/12/18 01/17/24 History cholecalciferol (vitamin D3) 25 1,000 unit PO DAILY 10/12/18 01/17/24 History mcg (1,000 unit) capsule (Vitamin D3) diclofenac sodium 1 % topical gel 2 g topical QID PRN Pain 10/12/18 11/02/20 History (Voltaren) levothyroxine 100 mcg tablet 100 mcg PO QAM 10/12/18 01/16/24 History (Synthroid) omeprazole 20 mg capsule,delayed 20 mg PO DAILY 10/12/18 11/02/20 History release gabapentin 300 mg capsule 400 mg PO BID 11/02/20 01/20/24 History venlafaxine 150 mg 150 mg PO DAILY 11/02/20 01/17/24 History capsule,extended release 24 hr venlafaxine 37.5 mg 37.5 mg PO DAILY 11/02/20 01/17/24 History capsule,extended release 24 hr bupropion HCl 100 mg tablet,12 hr 100 mg PO BID 01/16/24 01/17/24 History sustained-release calcium 200 mg (as tab 01/16/24 History citrate)-vitamin D3 6.25 mcg (250 unit) tablet (Citracal-D3 Petites) levocetirizine 5 mg tablet 5 mg PO HS 01/16/24 01/20/24 History losartan 25 mg tablet 25 mg PO DAILY 01/16/24 01/17/24 History multivitamin 01/16/24 History nystatin 1 million unit capsule 100,000 unit PO 01/16/24 History quetiapine 100 mg tablet 300 mg PO HS 01/16/24 01/17/24 History semaglutide (weight loss) 0.5 mg subcut 01/16/24 History mg/0.5 mL subcutaneous pen injector (Wegovy) spironolactone 25 mg tablet 25 mg PO DAILY 01/16/24 01/20/24 History tizanidine 4 mg tablet 4 mg 01/16/24 History torsemide 20 mg tablet 20 mg PO DAILY 01/16/24 01/17/24 History triamcinolone acetonide 0.1 % applic topical 01/16/24 History topical cream Probiotic 01/17/24 History fluticasone furoate 100 inhalation 01/17/24 History mcg-vilanterol 25 mcg/dose inhalation powder fluticasone furoate 100 inhalation 01/17/24 History mcg-vilanterol 25 mcg/dose inhalation powder lifitegrast 5 % eye drops in a drp 01/17/24 History dropperette (Xiidra) polyethylene glycol ea miscellaneous 01/17/24 History venlafaxine 150 mg mg PO 01/17/24 History capsule,extended release 24 hr Hospital Stay Data Consultations 01/16/24 23:18 ED Decision to Admit Stat 01/17/24 00:33 Consult Orthopedic Surgery Routine Diagnostic Imagining Performed 01/16/24 19:37 CT cervical spine wo con Stat CT head/brain wo con Stat 01/16/24 20:34 CT abd pelvis wo con Stat CT chest diagnostic wo con Stat 01/16/24 20:39 CT lumbar spine wo con Stat 01/17/24 01:55 US venous doppler LE BI Stat Chest X-Ray 01/16/24 19:19 Exam(s): XR CXR 1 VIEW EXAM: XR Chest, 1 View CLINICAL HISTORY: Reason for exam: weakness. TECHNIQUE: Frontal view of the chest. COMPARISON: X-ray chest: 11/02/2020 FINDINGS: Lungs: Demonstrates prominent perihilar bronchovascular/interstitial markings in both lung de jesus. No consolidation. Pleural space: No pleural effusion. No pneumothorax. Heart: Mild cardiomegaly. Mediastinum: Atherosclerotic tortuosity of the thoracic aorta. Normal mediastinal contour. Bones/joints: Osteopenia. No obvious acute fracture. Degenerative changes of the spine and shoulders. IMPRESSION: Bilateral bronchial wall thickening and perihilar bronchovascular/increased interstitial markings. No consolidation or pleural effusion. . Electronically signed by: Jonathan Thao MD, DABR 01/16/24 21:06 PM Ankle X-Ray 01/16/24 19:37 Exam(s): XR RIGHT ANKLE, 3+ views EXAM: XR Right Ankle Complete, 3 or More Views CLINICAL HISTORY: Reason for exam: fall. TECHNIQUE: Frontal, lateral and oblique views of the right ankle. COMPARISON: None. FINDINGS: Bones/joints: Osseous demineralization. No acute left ankle fracture. No dislocation. Plantar calcaneal spur. Posterior calcaneal enthesophyte. Suspect fracture of the medial cortex of the navicular bone. Soft tissues: Soft tissue swelling of the ankle more medially/anteriorly. IMPRESSION: Suspect fracture of the medial cortex of the left navicular bone. Recommend clinical correlation. No acute left ankle fracture identified. Medially soft tissue edema/swelling of the left ankle. . Electronically signed by: Jonathan Thao MD, AMADOU 01/16/24 23:[address] 01/16/24 19:37 Exam(s): CT C SPINE EXAM: CT Cervical Spine Without Intravenous Contrast CLINICAL HISTORY: Reason for exam: falls, pain. TECHNIQUE: Axial computed tomography images of the cervical spine without intravenous contrast. CTDI is 29.22 mGy and DLP is 573 mGy-cm. Automated exposure control was utilized for the study. A dose lowering technique was utilized adhering to the principles of ALARA. COMPARISON: None. FINDINGS: Motion-induced image degradation. Vertebrae: Normal alignment of the spine. No malalignment. A C7 vertebral superior endplate mild compression deformity/ fracture of indeterminant age (series 603 image 48). No other cervical vertebral acute fracture identified. Discs/spinal canal/neural foramina: No acute findings. No spinal canal stenosis. Soft tissues: Unremarkable. Lung apices: Interstitial thickening/patchy parenchymal groundglass opacities. IMPRESSION: Demonstrates a C7 vertebral superior endplate mild compression deformity/fracture of indeterminant age. Recommend clinical correlation. Otherwise no acute osseous injury to the cervical spine identified. . Electronically signed by: Jonathan Thao MD, AMADOU 01/16/24 22:[address] 01/16/24 19:37 Exam(s): CT HEAD Without Contrast EXAM: CT Head Without Intravenous Contrast CLINICAL HISTORY: Reason for exam: falls, shaky. TECHNIQUE: Axial computed tomography images of the head/brain without intravenous contrast. CTDI is 65.68 mGy and DLP is 961.59 mGy-cm. Automated exposure control was utilized for the study. A dose lowering technique was utilized adhering to the principles of ALARA. COMPARISON: MRI brain: 10/21/2006 FINDINGS: Image diagnostic quality is reduced by motion and beam hardening artifacts. Brain: There is no acute intracranial hemorrhage, mass-effect or midline shift. Focal zone of decreased attenuation in the left basal ganglia, likely an old infarct. Ventricles: Age-related mild/moderate cerebral atrophy with widening of the extra-axial spaces/ventricular dilatation. Periventricular/subcortical areas of decreased attenuation, from likely chronic microvascular disease. Bones/joints: Unremarkable. No acute fracture. Soft tissues: Unremarkable. Sinuses: Unremarkable as visualized. No acute sinusitis. Mastoid air cells: Unremarkable as visualized. No mastoid effusion.. IMPRESSION: Limited exam No acute intracranial abnormality is evident . Electronically signed by: Jonathan Thao MD, DABR 01/16/24 22:45 PM Abdomen/Pelvis CT 01/16/24 20:34 Exam(s): CT ABDOMEN + PELVIS Without Contrast EXAM: CT Abdomen and Pelvis Without Intravenous Contrast CLINICAL HISTORY: Reason for exam: falls, low back pain, MADAN. TECHNIQUE: Axial computed tomography images of the abdomen and pelvis without intravenous contrast. CTDI is 33.6 mGy and DLP is 2248 mGy-cm. Automated exposure control was utilized for the study. A dose lowering technique was utilized adhering to the principles of ALARA. COMPARISON: None. FINDINGS: Lack of IV contrast limits evaluation of soft tissues/vascular structures. Lung bases: No mass. No consolidation. No pleural effusion. Proximal ascending aortic mild aneurysm: 42 mm. Calcified right coronary artery visualized. 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 ABDOMEN: Liver: A 1.9 cm ring calcified structure is seen in the dome of the right hepatic lobe, most likely benign (series 1000 image 44).. Gallbladder and bile ducts: Prior cholecystectomy. No ductal dilation. Pancreas: Pancreatic fatty infiltration , mild/moderate atrophy. No ductal dilation. Spleen: Unremarkable. No splenomegaly. Adrenals: Unremarkable. No mass. Kidneys and ureters: A 2.5 x 2.2 cm ring calcified exophytic structure is seen laterally from the mid right kidney (series 11 image 36, series 1000, image 65). No obstructing stones. No hydronephrosis. Stomach and bowel: A small hiatal hernia. Nonspecific mucosal/wall thickening of the cecum/ascending colon, this could be related to acute colitis versus incomplete distention (series 11 image 54, series 1000 image 52). No obstruction. PELVIS: Appendix: No findings to suggest acute appendicitis. Bladder: Unremarkable. No stones. Reproductive: Prior hysterectomy. ABDOMEN and PELVIS: Intraperitoneal space: No free air. No significant fluid collection. Bones/joints: No acute fracture. No dislocation. At T9-T10: Moderate degenerative spondylitic changes. Lower lumbosacral facet osteoarthropathy. Moderate bilateral hip osteoarthrosis. Soft tissues: Unremarkable. Vasculature: Mild/moderate infrarenal aortic atherosclerosis. No abdominal aortic aneurysm. Lymph nodes: No enlarged lymph nodes.. IMPRESSION: Nonspecific mucosal/wall thickening of the cecum/ascending colon, could be related to acute colitis versus incomplete distention. Recommend clinical correlation. A 2.5 x 2.2 cm ring calcified exophytic structure seen laterally a from the mid right kidney, likely a complex cyst. Renal ultrasound correlation is advised. . Electronically signed by: Jonathan Thao MD, DABR 01/17/24 00:[address] 01/16/24 20:34 Exam(s): CT CHEST Without Contrast EXAM: CT Chest Without Intravenous Contrast CLINICAL HISTORY: Reason for exam: falls, CP. TECHNIQUE: Axial computed tomography images of the chest without intravenous contrast. CTDI is 33.67 mGy and DLP is 2248 mGy-cm. Automated exposure control was utilized for the study. A dose lowering technique was utilized adhering to the principles of ALARA. COMPARISON: CTA chest 11/02/2020 FINDINGS: Lungs: No pulmonary contusion. Unchanged 5 mm pulmonary nodular in the periphery of the right upper lobe. Pleural space: No pleural effusion or pneumothorax. Heart: Unremarkable. Bones/joints: No acute fracture. Soft tissues: Unremarkable. Vasculature: Aneurysmal ascending thoracic aorta up to 4.7 cm. Lymph nodes: Unremarkable. IMPRESSION: 1. No acute abnormality. 2. Aneurysmal ascending thoracic aorta up to 4.7 cm. Electronically signed by: Gurjit Dickson MD 01/17/24 00:[address] 01/16/24 20:39 Exam(s): CT L SPINE EXAM: CT Lumbar Spine Without Intravenous Contrast CLINICAL HISTORY: Reason for exam: fall, pain. TECHNIQUE: Axial computed tomography images of the lumbar spine without intravenous contrast. CTDI is 29 mGy and DLP is 573 mGy-cm. Automated exposure control was utilized for the study. A dose lowering technique was utilized adhering to the principles of ALARA. COMPARISON: No relevant prior studies available. FINDINGS: Vertebrae: No acute fracture or malalignment. Soft tissues: Unremarkable. IMPRESSION: No acute findings in the lumbar spine. Electronically signed by: Gurjit Dickson MD 01/17/24 00:38 AM Foot X-Ray 01/16/24 23:06 Exam(s): XR LEFT FOOT EXAM: XR Left Foot Complete, 3 or More Views CLINICAL HISTORY: Reason for exam: pain ?frx. TECHNIQUE: Frontal, lateral and oblique views of the left foot. COMPARISON: No relevant prior studies available. FINDINGS: Bones/joints: No acute fracture or malalignment. Pes cavus. Calcaneal enthesophytes. Soft tissues: Unremarkable. IMPRESSION: No acute fracture or malalignment. Electronically signed by: Gurjit Dickson MD 01/17/24 00:47 AM Venous Doppler Study 01/17/24 01:55 EXAM: US venous doppler LE BI CLINICAL HISTORY: HX: NO PREV. ELEVATED D DIMER. EXAM LIMITED BY INCREASED BODY HABITUS, BMI 42. TECH NOTES: NO OBVIOUS DVT BILAT LOWER EXT. TECHNIQUE: Ultrasound examination of bilateral lower extremity veins was performed in real time and duplex. One or more of the following were performed- spectral analysis, resistive index, waveform analysis, and pulsed Doppler. COMPARISON: None. FINDINGS: Normal phasic, non-pulsatile and spontaneous flow is noted in bilateral GSV, common femoral, superficial femoral, popliteal and posterior tibial, anterior tibial and peroneal veins. Visualized veins of both lower extremities demonstrate normal compressibility. No sonographic evidence of acute deep vein thrombosis (DVT) is detected in the visualized veins of both lower extremities. Compression and Augmentation: All evaluated veins compress fully with applied transducer pressure. Augmentation of venous flow is noted with distal compression. Additional Findings: No evidence of intraluminal thrombus. IMPRESSION: No sonographic evidence of acute DVT detected in bilateral lower extremity veins, at the time of examination. Disclaimer: DVT could be missed early in the disease when clot burden is minimal. For patients with moderate and high pretest probability of DVT and negative ultrasound, the [employer] clinical guidelines recommend testing with a D-dimer assay or repeat ultrasound in 5-7 days. If symptoms worsen, the Society of radiologists in ultrasound recommends repeating ultrasound even earlier. Electronically signed by Bob Adams 01-17-2024 05:11 AM Pulmonary Perfusion Imaging 01/17/24 05:38 NM pul perfusion HISTORY: 68 years-old Female cp sob; pls call md calderon result once available due to chest pain with shortness of breath COMPARISON: Duplex venous Doppler study of same day, chest CT 01/16/2024 TECHNIQUE: Nuclear medicine perfusion scan was obtained following the intravenous administration of 5.2 mCi technetium 99 MDP administered via the right upper extremity. Ventilation images were not obtained secondary to ongoing droplet precautions. FINDINGS: Comparison chest CT demonstrates no airspace consolidation. Comparison duplex venous Doppler study demonstrates no DVT. No large segmental perfusion defects. IMPRESSION: Low probability for pulmonary embolus. ACT 112: Negative or not required by law. The above report was generated using voice recognition software. It may contain grammatical, syntax or spelling errors. Electronically signed by: Rishi Romero M.D. 01/17/2024 10:41 AM Chest X-Ray 01/18/24 23:58 EXAM: XR chest 1V portable CLINICAL HISTORY: SOB JMF TECHNIQUE: Radiograph of chest was acquired. COMPARISON: 16 January 2024. FINDINGS: Obliquity noted. Ground glassing/haziness is noted in the left lower zone, likely due to obliquity. Prominence of the perihilar markings are noted. Rest of the lungs are clear and well-expanded with no pulmonary infiltrate. No pleural effusion is detected. Cardiomegaly seen. Unfolding of the aorta is noted. Rest of the findings are unchanged compared to the previous radiograph. IMPRESSION: 1. Ground glassing/haziness is noted in the left lower zone, likely due to obliquity. 2. Prominence of the perihilar markings are noted. 3. Cardiomegaly seen. Findings are unchanged compared to the previous radiograph. No significant interval new findings noted as compared to the previous radiograph. Electronically signed by Cosmo Owusu 01-19-2024 01:21 AM Pending Results Patient Have Any Pending Studies at Discharge: No Discharge Instructions Given to Patient (Per Discharging Provider) Paige, You are admitted and treated. your symptoms improved. Orthopedic surgery has left the following instructions for you. Please keep close follow-up with their office. Please keep close follow up with your primary care provider after discharge. Please do not hesitate to come back to the emergency room if your symptoms worsen or return. It was a pleasure taking care of you while you were here. Total Time Total Time Spent Total Time Spent (In Minutes): 65
== END 2024-01-22 17:13 | disposition home or self-care (01) | DRG 202 ==
LOC: ED 19:02 → 4W 23:55 → 3W 01-20 13:37

== ENCOUNTER 2024-12-23 07:11 | Inpatient (IN) ==
--- NOTE | 2024-11-26 15:22 | PAT Medication Instructions ---
Medication Instructions Date of Service November 26, 2024 Home Medications levothyroxine 100 mcg tablet (Synthroid) 100 mcg PO QAM cyclobenzaprine 5 mg tablet 5 mg PO TID PRN MUSCLE SPASMS gabapentin 400 mg capsule 400 mg PO BID multivitamin 1 tab PO DAILY acetaminophen 500 mg tablet 1,000 mg PO Q8 PRN Pain apixaban 5 mg tablet (Eliquis) 5 mg PO BID aspirin 81 mg chewable tablet 81 mg PO QAM atorvastatin 40 mg tablet 40 mg PO QAM cholecalciferol (vitamin D3) 25 mcg (1,000 unit) tablet (Vitamin D3) 25 mcg PO QAM diclofenac sodium 1 % topical gel 2 g topical QID PRN ARTHRITIS fluticasone furoate 100 mcg-vilanterol 25 mcg/dose inhalation powder (Breo Ellipta) 1 inh inhalation QAM levocetirizine 5 mg tablet 5 mg PO QPM omeprazole 40 mg capsule,delayed release 40 mg PO Q12h ondansetron 4 mg disintegrating tablet 4 mg translingual Q8 PRN Nausea polyethylene glycol 3350 17 gram oral powder packet 17 g PO QAM PRN Constipation quetiapine 300 mg tablet 300 mg PO HS spironolactone 25 mg tablet 25 mg PO QAM torsemide 20 mg tablet 20 mg PO QAM bisacodyl 5 mg tablet,delayed release (Dulcolax (bisacodyl)) 15 mg PO HS bupropion HCl 150 mg tablet,12 hr sustained-release 150 mg PO BID MEDICATION INSTRUCTIONS: Continue as directed diclofenac sodium 1 % topical gel 2 g topical QID PRN ARTHRITIS (do not apply after bathing prior to surgery) fluticasone furoate 100 mcg-vilanterol 25 mcg/dose inhalation powder (Breo Ellipta) 1 inh inhalation QAM ASK your prescriber and surgeon apixaban 5 mg tablet (Eliquis) 5 mg PO BID (for spinal anesthesia: will need to hold Eliquis/apixaban at least 72 hours prior to surgery) aspirin 81 mg chewable tablet 81 mg PO QAM DO NOT take the morning of surgery spironolactone 25 mg tablet 25 mg PO QAM torsemide 20 mg tablet 20 mg PO QAM cholecalciferol (vitamin D3) 25 mcg (1,000 unit) tablet (Vitamin D3) 25 mcg PO QAM multivitamin 1 tab PO DAILY polyethylene glycol 3350 17 gram oral powder packet 17 g PO QAM PRN Constipation Take morning of surgery With a small sip of water, OTHERWISE NOTHING TO EAT OR DRINK AFTER MIDNIGHT: atorvastatin 40 mg tablet 40 mg PO QAM levothyroxine 100 mcg tablet (Synthroid) 100 mcg PO QAM cyclobenzaprine 5 mg tablet 5 mg PO TID PRN MUSCLE SPASMS gabapentin 400 mg capsule 400 mg PO BID omeprazole 40 mg capsule,delayed release 40 mg PO Q12h bupropion HCl 150 mg tablet,12 hr sustained-release 150 mg PO BID ondansetron 4 mg disintegrating tablet 4 mg translingual Q8 PRN Nausea acetaminophen 500 mg tablet 1,000 mg PO Q8 PRN Pain Take evening before surgery cyclobenzaprine 5 mg tablet 5 mg PO TID PRN MUSCLE SPASMS gabapentin 400 mg capsule 400 mg PO BID omeprazole 40 mg capsule,delayed release 40 mg PO Q12h bupropion HCl 150 mg tablet,12 hr sustained-release 150 mg PO BID ondansetron 4 mg disintegrating tablet 4 mg translingual Q8 PRN Nausea quetiapine 300 mg tablet 300 mg PO HS levocetirizine 5 mg tablet 5 mg PO QPM acetaminophen 500 mg tablet 1,000 mg PO Q8 PRN Pain bisacodyl 5 mg tablet,delayed release (Dulcolax (bisacodyl)) 15 mg PO HS (only if needed) Other Notes If you have any questions please call us at [phone] or [phone] or [phone] or [phone]
--- NOTE | 2024-12-03 12:22 | Anesthesiology Consultation ---
Date of Service December 03, 2024 Assessment & Plan (1) Encounter for pre-operative examination: - Infectious disease screening: Per assessment on 12/03/24- No known recent infectious disease contacts or current infectious disease symptoms. - Outpatient joint assessment: Pt currently scheduled for inpatient pathway. If surgeon requests review for outpatient joint pathway, patient is not a recommended candidate for outpatient joint program from anesthesia standpoint based on available information. - Eliquis instructions: patient made aware that for neuraxial anesthesia, Eliquis needs to be held 72 hours prior to surgery. Patient voiced understanding/states she has already received approval/recommendation to hold 72 hours prior to surgery by prescriber. - Heme/onc visit 11/28/24: "right knee joint osteoarthritis, she will need joint replacement in the future. 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 Most likely dehydration occurred following gastric bypass surgery causing thrombotic complications but would like to rule out underlying hypercoagulable state.. Suggested that she should not go for elective surgery for at least 6 months from the blood clot.. She was admitted at [facility], received IV heparin and subsequently she was discharged home with the Eliquis.. no previous history of any kind of thrombotic complications.." 4 month f/u recommended. No further testing ordered at visit. Upcoming surgery > 6 months since thrombosis event* - Cardiology visit 11/29/24: "Hypertension and hypertensive heart disease with resolved diastolic heart failure.. Hypertension and hypertensive heart disease resolved with weight loss. Blood pressure well-controlled without medication. Losartan not needed due to low blood pressure.. Reintroduce losartan if blood pressure increases or for renal protection and aortic root enlargement management.. Mild aortic root enlargement. Last echocardiogram in fall. Monitoring necessary.. Schedule echocardiogram in fall 2025... 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 Cardiovascular clearance for knee surgery. Blood thinner management discussed.. Hold apixaban before right knee surgery and restart postoperatively as per surgical team's guidance.. Proceed with right knee replacement surgery.. Return 1 year" Chart Review Chart Review: Acceptable Risk for Surgery (penidng evaluation DOS) and Patient seen in Pre Admission Testing Teaching & Discussion Pre-Anesthesia Teaching/Discussion Notes: Instructed NPO after midnight before surgery,except medications with 15 cc of water. Medication instructions provided according to the PAT guidelines. History Surgery Operation Date: 12/23/24 07:00 Proposed Procedures p Robotic Assisted Right Total Knee Arthroplasty - Hans Fuentes, Height/Weight Height: 5 ft 5 in Weight: 93.4 kg Allergies Allergy/AdvReac Type Severity Reaction Status Date / Time semaglutide [[facility] Allergy Intermediate Abdominal Verified 11/22/24 14:06 Pain paroxetine AdvReac Mild Dizziness Verified 11/25/24 13:13 Medications Home Medications Medication Instructions Recorded Confirmed Last Taken levothyroxine 100 mcg tablet 100 mcg PO QAM 10/12/18 11/22/24 05/21/24 (Synthroid) cyclobenzaprine 5 mg tablet 5 mg PO TID PRN MUSCLE SPASMS 05/22/24 11/22/24 Unknown gabapentin 400 mg capsule 400 mg PO BID 05/22/24 11/22/24 05/21/24 multivitamin 1 tab PO DAILY 05/22/24 11/22/24 05/21/24 acetaminophen 500 mg tablet 1,000 mg PO Q8 PRN Pain 07/11/24 11/22/24 Unknown apixaban 5 mg tablet (Eliquis) 5 mg PO BID 07/11/24 11/22/24 Unknown aspirin 81 mg chewable tablet 81 mg PO QAM 07/11/24 11/22/24 Unknown atorvastatin 40 mg tablet 40 mg PO QAM 07/11/24 11/22/24 Unknown cholecalciferol (vitamin D3) 25 25 mcg PO QAM 07/11/24 11/22/24 Unknown mcg (1,000 unit) tablet (Vitamin D3) diclofenac sodium 1 % topical gel 2 g topical QID PRN ARTHRITIS 07/11/24 11/22/24 Unknown fluticasone furoate 100 1 inh inhalation QAM 07/11/24 11/22/24 Unknown mcg-vilanterol 25 mcg/dose inhalation powder (Breo Ellipta) levocetirizine 5 mg tablet 5 mg PO QPM 07/11/24 11/22/24 Unknown omeprazole 40 mg capsule,delayed 40 mg PO Q12 07/11/24 11/22/24 Unknown release ondansetron 4 mg disintegrating 4 mg translingual Q8 PRN Nausea 07/11/24 11/22/24 Unknown tablet polyethylene glycol 3350 17 gram 17 g PO QAM PRN Constipation 07/11/24 11/22/24 Unknown oral powder packet quetiapine 300 mg tablet 300 mg PO HS 07/11/24 11/22/24 Unknown bisacodyl 5 mg tablet,delayed 15 mg PO HS 11/22/24 11/22/24 Unknown release (Dulcolax (bisacodyl)) bupropion HCl 150 mg tablet,12 hr 150 mg PO BID 11/22/24 11/22/24 Unknown sustained-release Past Medical History Medical History (Updated 12/03/24 @ 14:56 by Veronique Lau) Aortic root enlargement Follows with [facility] cardio "Mild aortic root enlargement 4.0 cm and ascending aorta dilatation at 4.4 cm" Asthma CAD (coronary artery disease) 2018 cath- nonobstructive "mild coronary atherosclerosis and luminal irregularities but no obstruction" per cardio records Chronic kidney disease Depression Fibromyalgia GERD (gastroesophageal reflux disease) Hearing deficit bilateral hearing aides History of COVID-19 10/2020- Covid PNA per records, [facility] admission for about 1 week, no ventilator > resolved Hx of blood clots Right transverse, sigmoid sinus and right internal jugular artery thrombosis 06/14/2024 Follows with [facility] heme/onc- per 11/28/24 visit, "Most likely dehydration occurred following gastric bypass surgery causing thrombotic complications.." Hyperlipidemia Hypertension Hypothyroidism Renal cyst Right kidney Follows with Dr. Shelley Sleep apnea Hx obesity hypoventilation per [facility] records Did not tolerate device, "only wears a nose piece" Thyroid nodule monitoring Exercise / Class Metabolic Activity II 4-5 Yardwork/Stairs/Walk up hill (one FS: No CP, no SOB) Past Family History Family History Mother FHx: stomach cancer FHx: liver cancer Father FHx: lung cancer Other No family history of adverse response to anesthesia Past Surgical History Surgical History H/O hernia repair History of appendectomy History of cardiac cath (2017) No stents History of cataract surgery R/L History of cholecystectomy History of colonoscopy History of esophagogastroduodenoscopy (EGD) History of tooth extraction all teeth removed Hx of gastric bypass (05/14/24) + hiatal hernia repair [facility] [place] S/P carpal tunnel release bilateral S/P CARROLL (total abdominal hysterectomy) (2001) S/P thyroid biopsy negative Past Anesthesia History No Family Hx of Anesthesia Complications and Other (Emotional/crying with anesthesia emergence) History of PONV No Hx of PONV and No Hx of Motion Sickness Social History Smoking Status: Never smoker Do You Dip or Chew Tobacco: No Hx Alcohol Use: No Hx Substance Use: No substance use type: does not use Review of Systems Patient denies chest pain, shortness of breath, dyspnea on exertion, fever, chills, cough, wheezing. Physical Exam Vital Signs BP 107/73 P 79 TEMP 98.7 SP02 95%RA RESP 18 Physical Full cervical extension range of motion. Full TMJ range of motion. TMD 3 finger breaths Mallampati Score II Dentition: upper/lower full dentures Lungs: clear throughout to auscultation Cardiac: regular rate and rhythm, no murmurs noted Spine: normal Carotid arteries: negative bruit Extremities: no LE edema Lab Results Anesthesia Preop Results Results Anesthesia Widget: WBC 5.75 K/ul (4.8-10.8) 12/03/24 Hgb 11.8 g/dl (12.0-16.0) L 12/03/24 Hct 34.8 % (37.0-47.0) L 12/03/24 Plt 215 K/uL (130-400) 12/03/24 Na 141 mmol/L (136-145) 12/03/24 K 4.2 mmol/L (3.5-5.1) 12/03/24 Cl 113 mmol/L (98-107) H 12/03/24 CO2 24 mmol/L (21-32) 12/03/24 BUN 19 mg/dl (6-23) 12/03/24 Creat 1.38 mg/dl (0.6-1.2) H 12/03/24 Glucose Level 88 mg/dl (70-99(Fasting)) 12/03/24 PT 11.4 Seconds (9.0-12.0) 12/03/24 PTT 24 Seconds (21-31) 12/03/24 INR 1.1 (0.9-1.1) 12/03/24 Blood Type A Positive 12/03/24 Antibody Screen NEGATIVE 12/03/24 Testing Electrocardiogram Date: 07/11/24 NSR. 87bpm. Minimal voltage criteria for LVH, may be normal variant (R in avL). Inferior infarct (cited on or before 01/16/2024). Possible anterolateral infarct, age undetermined. NS TWA. Chest X-Ray Date: 12/03/24 FINDINGS: There is mild cardiomegaly without pulmonary vascular congestion. No consolidation or pleural effusion. No pneumothorax. Lungs are mildly hyperexpanded. IMPRESSION: No acute findings. Echocardiogram Date: 01/17/24 LVEF 65-70%. Grade I DD. No significant valvular disease. Doppler findings do not suggest pulmonary HTN. LV cavity is small. Cardiac Catheterization Date: 12/21/17 Coronary Anatomy Dominant: Right Left Main (% Stenosis): Normal LAD (% Stenosis): Proximal (Mild luminal irregularities) and Mid (Luminal irregularities with 20% narrowing at D2) D1 (% Stenosis): Normal D2 (% Stenosis): Ostial (20%) Circumflex (% Stenosis): Mid and Normal OM1 (% Stenosis): Normal L PL1 (% Stenosis): Normal RCA (% Stenosis): Mid (Mild luminal irregularities) R PDA (% Stenosis): Normal R PL1 (% Stenosis): Normal R PL2 (% Stenosis): Normal AM (% Stenosis): Normal Recommendations: Medical Therapy and/or Counseling
[~2024-12-23 07:11] MED LIST changes: -CHOL100027 PO; -CLC100X PO; -CLON1TAB3 PO; -CLTP PO; -EFFSR75 PO; -FURO20TA PO; -IBUP-1050 PO; -LEVO100T PO; -LISI-792 PO; -NRN/300 PO; -OMEP40CA41 PO; -POTA-327 PO; +PROPOFOL IV EMULSION 10 MG/ML 100 ML VIAL IV ONE; +ROPIVACAINE 0.5% 5 MG/ML 30 ML VIAL ONE; -ULT/50 PO
[2024-12-23] MEDS ORDERED: LIDOCAINE 2% 2 ML VIAL/AMP(20MG/ML) INFIL ONE (07:30)
[2024-12-23] MEDS ORDERED: MIDAZOLAM HCL 1 MG/ML 2ML VIAL ONE (07:31)
[2024-12-23] MEDS: GABAPENTIN 300 MG CAP PO SCH (07:55)
[2024-12-23] MEDS: LR 60ML/HR IV SCH (07:55)
[2024-12-23] MEDS: FAMOTIDINE 20 MG TAB PO SCH (07:56)
[2024-12-23] MEDS: LR 500ML BOLUS, THEN 15ML/HR IV SCH (07:56)
[2024-12-23] MEDS: ACETAMINOPHEN 500 MG TAB PO SCH ×2 (07:56→13:55)
[2024-12-23] MEDS: dexAMETHasone**PF** 10 MG/ML VIAL IV SCH (07:56)
--- NOTE | 2024-12-23 08:27 | History & Physical Bridge Note ---
Date of Service December 23, 2024 History & Physical Bridge Note I have examined the patient, reviewed the History & Physical and in the interval since the performance of the History & Physical I have noted the following changes of clinical significance: no changes noted
[2024-12-23] MEDS ORDERED: ATROPINE SULFATE 0.1 MG/ML 10ML SYR IV PRN (08:31)
[2024-12-23] MEDS ORDERED: ONDANSETRON INJ 2 MG/ML 2 ML VIAL IV PRN (08:31)
[2024-12-23] MEDS ORDERED: HYDROmorphone INJ 1 MG/ML SYRINGE IV PRN (08:31)
--- NOTE | 2024-12-23 08:33 | History & Physical Bridge Note ---
Date of Service December 23, 2024 History & Physical Bridge Note I have examined the patient, reviewed the History & Physical and in the interval since the performance of the History & Physical I have noted the following changes of clinical significance: We will be proceeding with a right total knee arthroplasty. I discussed this with the patient and the surgical site was marked.
[2024-12-23] MEDS: ALBUT/IPRATROP 3MG/0.5MG NEB 3 ML VIAL NEB STA (08:39)
[2024-12-23] MEDS: TRANEXAMIC ACID 1,000 MG **IV Pre-op IV SCH (09:02)
[2024-12-23] MEDS ORDERED: PROPOFOL IV EMULSION 10 MG/ML 20 ML VIAL IV ONE (10:04)
[2024-12-23] MEDS ORDERED: ePHEDrine sulfate 50 MG/5 ML SYR ONE (10:04)
[2024-12-23] MEDS: ROPIV 0.5% 246mg, Ketorolac 30mg, EPINEPHrine 0.5mg in NSS INFIL SCH (10:06)
[2024-12-23] MEDS: ORTHO JOINT ANESTHETIC ONE (10:07)
[2024-12-23] MEDS ORDERED: ONDANSETRON INJ 2 MG/ML 2 ML VIAL ONE (10:20)
--- NOTE | 2024-12-23 10:26 | Operative Report ---
PG Post Operative Report Pre & Post Diagnosis Operation Date: 12/23/24 09:00 Pre-Op Diagnosis: Right Knee Osteoarthritis Post-Op Diagnosis: Right Knee Osteoarthritis I identified the patient and participated in the time-out.: Yes Procedure Operation Date: 12/23/24 09:00 Actual Procedures p Robotic Assisted Right Total Knee Arthroplasty(Right) - Hans Fuentes DO Surgeon Hans Fuentes DO Show Host/Hostess Michelle Pope PA-C Estimated Blood Loss 30 Findings Consistent with Post-Op Diagnosis Specimens Right femoral and tibial bone Description of Procedure Implants used: I used a Brianna Persona total knee arthroplasty system with a size 9 standard PS femur, E tibia, 32 patella, and a size 12 CPS polyethylene bearing. All components were press-fit in place. Kathryn arrived [facility] for the above procedure. She was seen in the preoperative holding area and the operative extremity was identified and signed. She was given a preoperative antibiotic, TXA, a spinal anesthetic and an adductor nerve block. She was taken back to the operating room and laid on the table in supine position. She was given basic sedation. The operative knee was then prepped and draped in sterile fashion. A timeout was done, and the patient and the operative extremity was properly identified. A midline incision was made directly over the patella. Dissection was taken down to the extensor mechanism. A medial parapatellar arthrotomy was used. The medial retinaculum was released and the fat pad was mostly excised. The knee was flexed and the ACL, PCL, and meniscus were removed. The alignment of the knee replacement was assisted with a Jamii robotic knee. The femoral array was pinned in the distal femur and the tibial array was pinned using a percutaneous technique in the upper shaft of the tibia. The robot was appropriately calibrated and the structure of the knee was mapped out. The components were then manipulated on the screen to account for any malalignment and to assist in gap balancing. Once I was happy with the placement of the components on the screen, a distal femoral cutting guide was brought in place. The distal femur was then resected. The femur measured to be a size 9. A 4-in-1 cutting block was then put into place by the robot and 2 peg holes were drilled. The 4-in-1 cutting block was then impacted into place and anterior, posterior, and chamfer cuts were made. The cutting block was then brought down to the tibia and pinned into place. The proximal tibia was then resected. The posterior aspect of the knee was then opened up and any additional meniscus fragments and osteophytes were removed. The tibia measured to be a size E. The tibial plate was then placed in the appropriate rotation and the tibia was drilled and punched. Trial components were then placed. The patella was then everted and 9 mm was resected off the posterior aspect of the patella. The patella measured to be a size 32. 3 peg holes were then drilled. A trial patella was placed. A size 12 CPS polyethylene insert was then trialed. The knee was brought through a full range of motion and felt to be stable. Trial components were then removed. The surrounding soft tissues were injected with 100 cc of an orthopedic pain control cocktail. All components were then press-fit into place. The final polyethylene insert was then snapped into place. The tourniquet was deflated. Hemostasis was obtained. A dilute betadyne lavage was then done for 3 minutes. The joint was then irrigated with normal saline solution. The medial parapatellar arthrotomy was then closed with #1 Vicryl suture. The skin was closed with 2-0 Vicryl, 3-0V lock suture, and [place] Zipline. A soft compressive dressing was placed. She was then transferred to a hospital bed and taken to the postanesthesia care unit in stable condition. She tolerated the procedure well. Michelle Pope PA-C, was present for the entire procedure. He was critical for patient positioning, prepping, draping, retraction exposure, wound closure and application of sterile dressing. I attest to the content of the Intraoperative Record and any orders documented therein. Any exceptions are noted below.
--- NOTE | 2024-12-23 11:43 | XRay Report ---
TWO VIEWS RIGHT KNEE CLINICAL HISTORY: Postoperative examination. FINDINGS: AP and crosstable lateral portable views of the right knee are obtained. A right knee arthr oplasty is in near anatomic alignment. There has been undersurface remodeling of the patella. No acut e fracture is seen. Subcutaneous gas and soft tissue edema are expected postsurgical findings. IMPRESSION: Expected postoperative changes status post right knee arthroplasty. No acute fracture is seen. ACT 112: Negative or not required by law. Electronically signed by: Socrates Fountain M.D. 12/23/2024 11:41 AM
[2024-12-23] MEDS ORDERED: MAGNESIUM HYDROXIDE SUSP 30 ML UDC PO PRN (11:58)
[2024-12-23] MEDS ORDERED: NALOXONE HCL 0.4 MG/1 ML VIAL/CARP IV PRN (11:58)
[2024-12-23] MEDS ORDERED: CYCLOBENZAPRINE HCL 5 MG TAB PO PRN (11:58)
[2024-12-23] MEDS ORDERED: diphenhydrAMINE Capsule 25 MG CAP PO PRN (11:58)
[2024-12-23] MEDS ORDERED: METOCLOPRAMIDE HCL INJ 5 MG/ML 2 ML VIAL IV PRN (11:58)
[2024-12-23] MEDS: ALBUT/IPRATROP 3MG/0.5MG NEB 3 ML VIAL ONE (12:20)
--- NOTE | 2024-12-23 12:24 | Anesthesiology Progress Note ---
Date of Service December 23, 2024 Anesthesia Post Procedure Vital Signs Vital Signs: Temp Pulse Resp BP BP Pulse Ox O2 Del Method 12/23/24 11:59 36.3 C L 93 H 16 116/80 94 Room Air 12/23/24 11:45 36.6 C 94 H 17 122/71 94 Room Air 12/23/24 11:35 90 18 120/71 94 Room Air 12/23/24 11:25 91 H 14 121/71 94 Oxymask 12/23/24 11:15 83 15 120/68 96 Oxymask 12/23/24 11:05 88 14 125/69 100 Oxymask 12/23/24 10:55 36.2 C L 87 13 117/68 100 Oxymask 12/23/24 08:39 74 17 95 Room Air 12/23/24 07:33 37.2 C 98 H 20 106/80 95 Room Air O2 Flow Rate FiO2 12/23/24 11:59 12/23/24 11:45 12/23/24 11:35 12/23/24 11:25 2 12/23/24 11:15 4 12/23/24 11:05 4 12/23/24 10:55 4 12/23/24 08:39 21 12/23/24 07:33 Pain Intensity Right Knee: Pain Intensity: 7 Transfer of Care Handoff Completed per policy Notes Mental Status: alert / awake / arousable and participated in evaluation Patient Amnestic to Procedure: Yes Nausea / Vomiting: adequately controlled Pain: adequately controlled Airway Patency, RR, SpO2: stable & adequate BP & HR: stable & adequate Hydration State: stable & adequate Anesthetic Complications: no major complications apparent and Pt Satisfied with anesthetic care
[2024-12-23] MEDS: SODIUM CHLORIDE 0.9% 1,000 ML IV SCH (12:33)
[2024-12-23] MEDS: SENNA 8.6 MG TAB PO SCH (20:44)
[2024-12-23] MEDS: DOCUSATE SODIUM 100 MG CAP PO SCH (20:45)
[2024-12-23] MEDS: APIXABAN 5 MG TABLET PO SCH (22:00)
[2024-12-23] MEDS: CETIRIZINE HCL 10 MG TABLET PO SCH (22:00)
[2024-12-23] MEDS: GABAPENTIN 400 MG CAP PO SCH (22:00)
[2024-12-23] MEDS: ASPIRIN 81 MG ECTAB PO SCH (22:00)
[2024-12-24] MEDS: LEVOTHYROXINE SODIUM 100 MCG TABLET PO SCH (05:35)
[2024-12-24] MEDS: ONDANSETRON 4 MG OD TAB PO PRN (05:59)
[2024-12-24] MEDS: ATORVASTATIN 40 MG TAB PO SCH (07:57)
[2024-12-24] MEDS: MULTIVITAMIN TAB PO SCH (07:58)
[2024-12-24] MEDS: CHOLECALCIFEROL 25 MCG (1000 UNITS) TAB PO SCH (07:58)
[2024-12-24] MEDS: FLUTICASONE/VILANTEROL 100/25MCG 14 PUFFS/INHALER INH SCH (08:01)
[2024-12-24] MEDS ORDERED: NON-FORMULARY MEDICATION (Multivitamin Tablet) PO SCH (09:00)
--- NOTE | 2024-12-24 09:37 | Orthopedic Progress Note ---
Date of Service December 24, 2024 Assessment & Plan (1) Status post total right knee replacement: * Continue Current Treatment * Disposition: home/rehab * Daily treatment: Physical Therapy/ Occupational Therapy per protocol * Weight bearing status: WNAT * Continue to monitor for ABLA * Pain control * DVT prophylaxis, ASA * Office/hospital f/u 2 weeks for progress check and staple/suture removal * Plan for discharge today pending PT/OT clearance Orthostatic Hypotension, intermittent chest pain * EKG obtained * CXR pending * Labs pending * NSS bolus ordered * Consider cardiology consult pending work-up and course of symptoms throughout the day Subjective . Active Problems: S/p right TKA POD 1 69 y/o female s/p right TKA. Doing well overall, pain managed and improved function. Denies fever/chills, chest pain/SOB, nausea/vomiting. Otherwise no complaints. Update: Intermittent chest pain, diaphoretic, and hypotensive while OOB earlier this morning. EKG obtained, normal sinus rhythm and overall EKG pending formal read. Per report, occasional chest pain with activity at home that improves with rest. Follows with [facility] cardiology Review of Systems All systems reviewed & are unremarkable except as noted in HPI & below. Physical Exam . * General: Alert and oriented, no acute distress * Constitutional: well-developed, well-nourished. * Respiratory: Normal respiratory effort, no distress * Gastrointestinal: No tenderness to palpation, no rigidity or guarding. * Skin: No rash or lesion. * Neurologic: Grossly normal * Musculoskeletal: Right knee surgical dressing CDI, not removed for exam. Otherwise no obvious deformity or overlying skin changes RLE. Diffuse TTP distal thigh and knee region. Otherwise no specific tenderness of proximal thigh, lower leg, foot/ankle. AROM knee flexion 80 degrees. AROM foot/ankle intact. Sensation intact plantar/dorsal foot. Brisk capillary refill. Results & Data Results & Data Laboratory Results . Diagnostic Findings . Knee X-Ray 12/23/24 11:01 TWO VIEWS RIGHT KNEE CLINICAL HISTORY: Postoperative examination. FINDINGS: AP and crosstable lateral portable views of the right knee are obtained. A right knee arthroplasty is in near anatomic alignment. There has been undersurface remodeling of the patella. No acute fracture is seen. Subcutaneous gas and soft tissue edema are expected postsurgical findings. IMPRESSION: Expected postoperative changes status post right knee arthroplasty. No acute fracture is seen. ACT 112: Negative or not required by law. Electronically signed by: Socrates Fountain M.D. 12/23/2024 11:41 AM PG Care Time/CCT Total # of Minutes Spent Total Time Spent with Patient: Total time spent is greater than 50% in coordination of care (as documented) at patient's floor/unit and/or counseling patient: Coding Level of Care Code 28550 Post Operative Follow-Up Diagnoses Status post total right knee replacement Z96.651
[2024-12-24] MEDS: SODIUM CHLORIDE 0.9% 500 ML IV ONE (11:13)
[2024-12-24 11:37] LABS: Hematocrit (blood only) 31.8 % (37.0-47.0); Hemoglobin 10.7 g/dl (12.0-16.0); Mean Corpuscular Hemoglobin 30.9 pg (25.0-34.0); Mean Corpuscular Volume 91.9 fL (80.0-100.0); Platelet Count 162 K/uL (130-400); RDW Standard Deviation 54.3 fL (36.4-46.3); Red Blood Count 3.46 M/uL (4.20-5.40); White Blood Count 5.54 K/ul (4.8-10.8)
--- NOTE | 2024-12-24 11:53 | XRay Report ---
XR chest 1V portable CLINICAL HISTORY: exertional chest pain COMPARISON STUDY: 12/03/2024 FINDINGS: The heart is enlarged. There is aortic tortuosity/ectasia. There is no focal pulmonary cons olidation. There is no failure. There is a stable eggshell calcification projected over the right hep atic dome. There is a stable area of linear scar/atelectasis at the left lung base.. IMPRESSION: Stable mild cardiomegaly. No acute findings. ACT 112: Negative or not required by law. Electronically signed by: Samuel Browning M.D. 12/24/2024 11:52 AM
[2024-12-24 11:59] LABS: Anion Gap 2.0 (3-11); Blood Urea Nitrogen 20.0 mg/dl (6-23); Calcium 8.1 mg/dl (8.6-10.3); Carbon Dioxide 25.0 mmol/L (21-32); Chloride 113.0 mmol/L (98-107); Creatinine Clr Calc Pharmacy 48.7 ml/min; Glucose 112.0 mg/dl (70-99(Fasting)); Potassium 4.5 mmol/L (3.5-5.1); Sodium 140.0 mmol/L (136-145)
--- NOTE | 2024-12-25 06:02 | Electrocardiogram Report ---
Test Reason : Blood Pressure : */* mmHG Vent. Rate : 78 BPM Atrial Rate : 78 BPM P-R Int : 170 ms QRS Dur : 94 ms QT Int : 378 ms P-R-T Axes : 69 22 48 degrees QTcB Int : 430 ms Normal sinus rhythm Normal ECG When compared with ECG of 11-Jul-2024 16:43, Borderline criteria for Anterior infarct are no longer Present Borderline criteria for Anterolateral infarct are no longer Present Nonspecific T wave abnormality no longer evident in Anterior leads Confirmed by Jb Jackman ([id number]) on 12/25/2024 6:02:28 AM Referred By: Hans Fuentes Confirmed By: Jb Jackman
--- NOTE | 2024-12-25 08:12 | Orthopedic Progress Note ---
Date of Service December 25, 2024 Assessment & Plan (1) Status post total right knee replacement: * Continue Current Treatment * Disposition: rehab * Chest pain workup including EKG, CXR, and basic labs unremarkable * Ambulation/orthostatic hypotension improved after NSS bolus * Daily treatment: Physical Therapy/ Occupational Therapy per protocol * Weight bearing status: WNAT * Continue to monitor for ABLA * Pain control * DVT prophylaxis, ASA * Office/hospital f/u 2 weeks for progress check and staple/suture removal * Plan for discharge today pending PT/OT clearance Subjective Active Problems: S/p right TKA POD 2 69 y/o female s/p right TKA. Doing well overall, pain managed and improved function. Denies fever/chills, chest pain/SOB. Continued but improved nausea. Chest pain workup unremarkable yesterday. Review of Systems All systems reviewed & are unremarkable except as noted in HPI & below. Physical Exam * General: Alert and oriented, no acute distress * Constitutional: well-developed, well-nourished. * Respiratory: Normal respiratory effort, no distress * Gastrointestinal: No tenderness to palpation, no rigidity or guarding. * Skin: No rash or lesion. * Neurologic: Grossly normal * Musculoskeletal: Right knee surgical dressing CDI, not removed for exam. Otherwise no obvious deformity or overlying skin changes RLE. Diffuse TTP distal thigh and knee region. Otherwise no specific tenderness of proximal thigh, lower leg, foot/ankle. AROM knee flexion 80 degrees. AROM foot/ankle intact. Sensation intact plantar/dorsal foot. Brisk capillary refill. Results & Data Results & Data Laboratory Results . Diagnostic Findings . PG Care Time/CCT Total # of Minutes Spent Total Time Spent with Patient: Total time spent is greater than 50% in coordination of care (as documented) at patient's floor/unit and/or counseling patient: Coding Level of Care Code 72173 Post Operative Follow-Up Diagnoses Status post total right knee replacement Z96.651
[2024-12-25] MEDS: POLYETHYLENE (MIRALAX) 17 GM PACK PO PRN (17:52)
[2024-12-26 07:50] VITALS: BP 115/79; PULSE 88; RESP 16; TEMP 97.5; O2SAT 96
--- NOTE | 2024-12-26 08:27 | Orthopedic Progress Note ---
Date of Service December 26, 2024 Assessment & Plan (1) Status post total right knee replacement: * Continue Current Treatment * Disposition: rehab, if not available would like to go home with home PT today, patients grandson is not available until after 7 PM to transport home. * Daily treatment: Physical Therapy/ Occupational Therapy per protocol * Weight bearing status: WBAT * Continue to monitor for ABLA * Pain control * DVT prophylaxis, ASA * Office/hospital f/u 2 weeks for progress check and staple/suture removal * Plan for discharge today pending PT/OT clearance Subjective . Active Problems: S/p right TKA POD 3 69 y/o female s/p right TKA. Doing well overall, pain managed and improved function. Denies fever/chills, chest pain/SOB. Patient notes knee is painful this morning but states pain is improved with pain medication. Review of Systems All systems reviewed & are unremarkable except as noted in HPI & below. Physical Exam * General: Alert and oriented, no acute distress * Constitutional: well-developed, well-nourished. * Respiratory: Normal respiratory effort, no distress * Gastrointestinal: No tenderness to palpation, no rigidity or guarding. * Skin: No rash or lesion. * Neurologic: Grossly normal * Musculoskeletal: Right knee surgical dressing CDI, not removed for exam. Otherwise no obvious deformity or overlying skin changes RLE. Diffuse TTP distal thigh and knee region. Otherwise no specific tenderness of proximal thigh, lower leg, foot/ankle. AROM knee flexion 80 degrees. AROM foot/ankle intact. Sensation intact plantar/dorsal foot. Brisk capillary refill. . Results & Data Results & Data Laboratory Results . Diagnostic Findings . Knee X-Ray 12/23/24 11:01 TWO VIEWS RIGHT KNEE CLINICAL HISTORY: Postoperative examination. FINDINGS: AP and crosstable lateral portable views of the right knee are obtained. A right knee arthroplasty is in near anatomic alignment. There has been undersurface remodeling of the patella. No acute fracture is seen. Subcutaneous gas and soft tissue edema are expected postsurgical findings. IMPRESSION: Expected postoperative changes status post right knee arthroplasty. No acute fracture is seen. ACT 112: Negative or not required by law. Electronically signed by: Socrates Fountain M.D. 12/23/2024 11:41 AM Chest X-Ray 12/24/24 10:38 XR chest 1V portable CLINICAL HISTORY: exertional chest pain COMPARISON STUDY: 12/03/2024 FINDINGS: The heart is enlarged. There is aortic tortuosity/ectasia. There is no focal pulmonary consolidation. There is no failure. There is a stable eggshell calcification projected over the right hepatic dome. There is a stable area of linear scar/atelectasis at the left lung base.. IMPRESSION: Stable mild cardiomegaly. No acute findings. ACT 112: Negative or not required by law. Electronically signed by: Samuel Browning M.D. 12/24/2024 11:52 AM PG Care Time/CCT Total # of Minutes Spent Total Time Spent with Patient: Total time spent is greater than 50% in coordination of care (as documented) at patient's floor/unit and/or counseling patient: Coding Level of Care Code 15626 Post Operative Follow-Up Diagnoses Status post total right knee replacement Z96.651
== END 2024-12-26 13:28 | DRG 470 ==
LOC: 3N 07:11 → ASU 07:11

== ENCOUNTER 2025-01-21 21:26 | Inpatient (IN) ==
[2025-01-21 21:59] LABS: Hematocrit (blood only) 37.0 % (37.0-47.0); Hemoglobin 12.7 g/dL (12.0-16.0); Immature Granulocytes # (auto) 0.01 K/uL (0.01-0.20); Immature Granulocytes % (auto) 0.2 %; Mean Corpuscular Hemoglobin 30.6 pg (25.0-34.0); Mean Corpuscular Volume 89.2 fL (80.0-100.0); Platelet Count 268 K/uL (130-400); RDW Standard Deviation 47.2 fL (36.4-46.3); Red Blood Count 4.15 M/uL (4.20-5.40); White Blood Count 6.62 K/ul (4.8-10.8)
[2025-01-21 22:16] LABS: Alanine Aminotransferase 24.0 U/L (7-52); Albumin Globulin Ratio 1.0 (0.9-2); Albumin Level 3.3 gm/dl (3.4-5.0); Alkaline Phosphatase 174.0 U/L (34-104); Anion Gap 11.0 (3-11); Bilirubin,Total 0.6 mg/dl (0.2-1.0); Blood Urea Nitrogen 15.0 mg/dl (6-23); Calcium 9.0 mg/dl (8.6-10.3); Carbon Dioxide 23.0 mmol/L (21-32); Chloride 107.0 mmol/L (98-107); Creatinine Clr Calc Pharmacy 49.3 ml/min; Globulin 3.3 gm/dl (2.5-4.0); Glucose 107.0 mg/dl (70-99(Fasting)); Potassium 3.7 mmol/L (3.5-5.1); Sodium 141.0 mmol/L (136-145); Total Protein 6.6 gm/dl (6.0-8.3)
[2025-01-21 22:34] LABS: INR 1.1 (0.9-1.1); Partial Thromboplastin Time 26 Seconds (21-31); Prothrombin Time 11.9 Seconds (9.0-12.0)
--- NOTE | 2025-01-21 23:36 | XRay Report ---
Exam(s): XR LEFT ANKLE, 3+ views EXAM: XR Left Ankle Complete, 3 or More Views CLINICAL HISTORY: Ankle trauma, no prior imaging. TECHNIQUE: Frontal, lateral and oblique views of the left ankle. COMPARISON: No relevant prior studies available. FINDINGS: Bones/joints: Posterior and plantar calcaneal spurs. No acute osseous abnormality. No dislocation. Soft tissues: No appreciable overlying soft tissue abnormality. Vasculature: Regional arterial calcification. IMPRESSION: No acute findings involving the left ankle. Electronically signed by: Quincy Mendez MD 01/21/25 23:35 PM
--- NOTE | 2025-01-21 23:40 | XRay Report ---
Exam(s): XR LEFT FOOT, 3+ views EXAM: XR Left Foot Complete, 3 or More Views CLINICAL HISTORY: Foot trauma, no prior imaging. TECHNIQUE: Frontal, lateral and oblique views of the left foot. COMPARISON: No relevant prior studies available. FINDINGS: Bones/joints: Posterior and plantar calcaneal spurs noted. No acute fracture. No dislocation. Soft tissues: Unremarkable. No radiopaque foreign body. IMPRESSION: No acute findings involving the left foot. Electronically signed by: Quincy Mendez MD 01/21/25 23:39 PM
--- NOTE | 2025-01-21 23:41 | XRay Report ---
Exam(s): XR LEFT TIB/FIB, 2 views EXAM: XR Left Tibia and Fibula, 2 Views CLINICAL HISTORY: Lower leg trauma. TECHNIQUE: Frontal and lateral views of the left tibia and fibula. COMPARISON: No relevant prior studies available. FINDINGS: Bones/joints: Moderate degenerative changes involving the medial compartment and patellofemoral compartment. No acute osseous abnormality or abnormal alignment. Soft tissues: Mild subcutaneous edema suggested throughout the distal thigh and calf. No radiopaque foreign body or subcutaneous emphysema. IMPRESSION: Mild subcutaneous edema suggested throughout the distal thigh and calf. No radiopaque foreign body or subcutaneous emphysema. No acute osseous abnormality. Electronically signed by: Quincy Mendez MD 01/21/25 23:41 PM
--- NOTE | 2025-01-21 23:41 | XRay Report ---
Exam(s): XR CXR 1 VIEW EXAM: XR Chest, 1 View CLINICAL HISTORY: injury alert, dizziness, weakness.. TECHNIQUE: Frontal view of the chest. COMPARISON: Portable chest single view 12/24/2024 and 01/19/2024 FINDINGS: Lungs: No focal consolidation. The pulmonary vasculature demonstrates no significant radiographic abnormality. Pleural space: Unremarkable. No pneumothorax. No large pleural effusion. Heart: The cardiac silhouette is stable and upper normal limits, accounting for portable technique. Mediastinum: No significant abnormality identified. The trachea is midline. Bones/joints: Unremarkable. No acute fracture. Upper abdomen: The rim calcified rounded structure overlying the diaphragm is presumed in the liver when compared to the prior examinations. IMPRESSION: No focal consolidation or acute cardiopulmonary process identified. Electronically signed by: Quincy Mendez MD 01/21/25 23:40 PM
--- NOTE | 2025-01-21 23:42 | XRay Report ---
Exam(s): XR RIGHT KNEE, 1-2 views EXAM: XR Right Knee, 1 or 2 Views CLINICAL HISTORY: Knee trauma, no prior imaging. TECHNIQUE: Frontal and/or lateral views of the right knee. COMPARISON: Bilateral knees 04/30/2024 FINDINGS: Bones/joints: A right total knee arthroplasties identified, new from the previous examination. No radiographic evidence of a suprapatellar joint effusion. No acute fracture. No dislocation. Soft tissues: Soft tissue fat stranding noted about the knee medially and laterally. No radiopaque foreign body or subcutaneous emphysema. IMPRESSION: Soft tissue fat stranding noted about the knee medially and laterally. No radiopaque foreign body or subcutaneous emphysema. No acute osseous abnormality involving the right knee. Electronically signed by: Quincy Mendez MD 01/21/25 23:41 PM
--- NOTE | 2025-01-21 23:45 | XRay Report ---
Exam(s): XR LEFT KNEE, 1-2 views EXAM: XR Left Knee, 1 or 2 Views CLINICAL HISTORY: Knee trauma, no prior imaging. TECHNIQUE: Frontal and/or lateral views of the left knee. COMPARISON: Bilateral knees dated 04/30/2024 FINDINGS: Bones/joints: Degenerative changes diffusely noted involving the left knee, most prominent involving the medial compartment and patellofemoral compartment. No acute fracture. No dislocation. Soft tissues: Soft tissue fat stranding involving the distal thigh and proximal calf. No radiopaque foreign body or subcutaneous emphysema. IMPRESSION: Soft tissue fat stranding involving the distal thigh and proximal calf. No radiopaque foreign body or subcutaneous emphysema. No acute osseous abnormality involving the left knee. Electronically signed by: Quincy Mendez MD 01/21/25 23:43 PM
[2025-01-22 00:11] LABS: Appearance Urine Clear (Clear); Bacteria Urine Automated None Seen (None Seen); Glucose Urine UA Negative (Negative); WBC Urine Automated 0-5 /hpf (0-5)
[2025-01-22] MEDS: ACETAMINOPHEN 500 MG TAB PO STA (00:21)
--- NOTE | 2025-01-22 02:28 | History & Physical Report ---
Date of Service January 22, 2025 Assessment & Plan (1) Syncope: Plan: Assessment and plan below following discussion of case with ED provider and reviewing patient history/pertinent normal/abnormal diagnostic test results. Syncope possibly secondary to orthostasis from diarrheal illness Rule out C. difficile ARF secondary to illness chronic diastolic heart failure (EF 65-70%, TTE 2023), patient on the dry side hx nonocclusive CAD/PVD hypertension, stable BP off maintenance medications. transverse sinus thrombosis on Eliquis Recent right knee surgery (12/2024) history gastric bypass anxiety/mood disorder/schizophrenia/fibromyalgia, at baseline hypothyroidism, TSH slight elevated with normal free T4 prediabetes, hemoglobin A1c of 5.5 from October 2024 Asymptomatic pyuria, no sepsis for now OBS Admit to med/tele Check orthostatic vitals Monitor creatinine response to IVF Stool C. difficile Hold laxatives for now Orthopedics consult Re: Postop eval as per patient request (Patient known to Dr. Fuentes.) Recheck TSH after 6 weeks Hold off on antibiotics for now for asymptomatic pyuria. PT OT eval DVT prophylaxis. Eliquis DNR as per patient wishes Patient requests for son to be given periodic updates regarding care. Mr. Socrates Hendricks, contact #[phone]. Text document was generated using [employer] voice recognition software. It may contain grammatical or spelling errors. Kindly contact undersigned for clarification of any documentation item in question. History of Present Illness Chief Complaint: Recurrent falls Primary Care Provider: Kennedy Brooks MD History obtained from patient and records. Medical history significant for chronic diastolic heart failure (EF 65-70%, TTE 2023), nonocclusive CAD, PVD, hypertension, transverse sinus thrombosis on Eliquis, AMIRA, GERD, history gastric bypass, anxiety/mood disorder/schizophrenia/fibromyalgia, hypothyroidism, prediabetes. Recent confinement December 242024 under Orthopedics service for elective right total knee arthroplasty. Unremarkable postop course. Patient [facility]. Patient discharged home from rehab 4 days ago. Patient feels she was discharged home too early but she had to leave because of insurance issues. Patient had trouble getting around upon return home. Yesterday, patient was walking when she felt a downward force pulling her down. Patient thinks she may have passed out. No head trauma, no headache, no weakness seizures, no chest pain, no SOB. Increasing weakness since yesterday. Watery diarrhea symptoms without abdominal pain. Fair appetite. Patient had another fall today without LOC, head trauma, chest pain or SOB. Achy leg pain from fall patient had trouble getting up. Patient denies abdominal pain or dysuria symptoms. Patient brought to ER for evaluation. 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 Allergies Allergy/AdvReac Type Severity Reaction Status Date / Time semaglutide [From [facility]] Allergy Intermediate Abdominal Verified 12/23/24 07:34 Pain paroxetine AdvReac Mild Dizziness Verified 12/23/24 07:34 Home Medications Medication Instructions Recorded Confirmed Type levothyroxine 100 mcg tablet 100 mcg PO QAM 10/12/18 01/22/25 History (Synthroid) gabapentin 400 mg capsule 400 mg PO BID 05/22/24 01/22/25 History (Neurontin) multivitamin (Daily Multi-Vitamin 1 tab PO DAILY 05/22/24 01/22/25 History tablet) apixaban 5 mg tablet (Eliquis) 5 mg PO BID 07/11/24 01/22/25 History aspirin 81 mg chewable tablet 81 mg PO QAM 07/11/24 01/22/25 History atorvastatin 40 mg tablet (Lipitor) 40 mg PO QAM 07/11/24 01/22/25 History cholecalciferol (vitamin D3) 25 25 mcg PO QAM 07/11/24 01/22/25 History mcg (1,000 unit) tablet (Vitamin D3) diclofenac sodium 1 % topical gel 2 g topical QID PRN ARTHRITIS 07/11/24 01/22/25 History fluticasone furoate 100 1 inh inhalation QA 07/11/24 01/22/25 History mcg-vilanterol 25 mcg/dose inhalation powder (Breo Ellipta) levocetirizine 5 mg tablet (24HR 5 mg PO QPM 07/11/24 01/22/25 History Allergy Relief) omeprazole 40 mg capsule,delayed 40 mg PO Q12 07/11/24 01/22/25 History release ondansetron 4 mg disintegrating 4 mg translingual Q8 PRN Nausea 07/11/24 01/22/25 History tablet polyethylene glycol 3350 17 gram 17 g PO QAM PRN Constipation 07/11/24 01/22/25 History oral powder packet quetiapine 300 mg tablet (Seroquel) 300 mg PO HS 07/11/24 01/22/25 History bisacodyl 5 mg tablet,delayed 15 mg PO HS 11/22/24 01/22/25 History release (Dulcolax (bisacodyl)) bupropion HCl 150 mg tablet,12 hr 100 mg PO BID 11/22/24 01/22/25 History sustained-release (Wellbutrin SR) oxycodone 5 mg tablet 5 mg PO Q6H PRN pain #30 tabs 12/24/24 01/22/25 Rx sennosides 17.2 mg tablet (Senokot 17.2 mg PO HS PRN constipation #14 12/24/24 01/22/25 Rx Extra Strength) tabs acetaminophen 500 mg tablet 500 mg PO BID 01/22/25 01/22/25 History (Acetaminophen Extra Strength) Past Med/Surg History Problem List (Updated 01/03/25 @ 00:07 by Shahida Strickland) Syncope Acute dehydration (Acute) Weakness (Acute) Fall (Acute) Status post total right knee replacement Medical History (Updated 01/22/25 @ 07:45 by Nhan Chiu MD) Aortic root enlargement Follows with [facility] "Mild aortic root enlargement 4.0 cm and ascending aorta dilatation at 4.4 cm" CAD (coronary artery disease) 2018 cath- nonobstructive "mild coronary atherosclerosis and luminal irregularities but no obstruction" per cardio records Hearing deficit bilateral hearing aides Renal cyst Right kidney Follows with Dr. 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 Follows with [facility]c- per 11/28/24 visit, "Most likely dehydration occurred following gastric bypass surgery causing thrombotic complications.." History of COVID-19 10/2020- Covid PNA per records, [facility] admission for about 1 week, no ventilator > resolved Sleep apnea Hx obesity hypoventilation per [facility] records Did not tolerate device, "only wears a nose piece" Asthma Hypothyroidism Thyroid nodule monitoring Depression Fibromyalgia Hypertension Surgical History (Updated 01/03/25 @ 00:07 by Shahida Strickland) History of cardiac cath (2017) No stents History of colonoscopy History of tooth extraction all teeth removed S/P carpal tunnel release bilateral S/P CARROLL (total abdominal hysterectomy) (2001) H/O hernia repair History of appendectomy History of esophagogastroduodenoscopy (EGD) History of cataract surgery R/L S/P thyroid biopsy negative Hx of gastric bypass (05/14/24) + hiatal hernia repair [facility] History of cholecystectomy Family History Mother FHx: stomach cancer FHx: liver cancer Father FHx: lung cancer Other No family history of adverse response to anesthesia Social History Smoking Status: Never smoker Second Hand Exposure: No; Do You Dip or Chew Tobacco: No; Hx Alcohol Use: No Hx Substance Use: No Preferred Language: Bulgarian Communication Ability: Effective Visual Impairment: No Limitations Hearing Ability: Normal Creative Services Writer Required: No Beliefs That Will Affect Care: None Current Living Situation: Alone current occupational status: unemployed Feels Safe at Home: Yes Assistive Devices: Cane, CPAP, Oxygen - at Night and Walker Review of Systems Review of Systems: As per HPI, all other systems reviewed and negative Physical Exam Physical Exam: GENERAL: morbidly obese, pleasant, no respiratory distress SKIN: Normal color, warm HEENT: [place] palpebral conjunctivae, no ptosis, dry buccal mucosa NECK : Supple, short neck, no tenderness CHEST : Decreased breath sounds, no tenderness HEART : RRR, no obvious murmurs ABDOMEN: distention, no tenderness EXTREMITIES : RLE wrapped, no tenderness NEUROLOGIC : Coherent, no facial asymmetry, occasional rest tremors, gait and stance not assessed Results & Data Results & Data Vital Signs (Past 12 Hours) Vital Signs Temp Pulse Resp BP Pulse Ox O2 Del Method 01/22/25 02:00 87 14 123/84 96 Room Air 01/22/25 02:00 36.6 C Room Air 01/22/25 01:48 87 01/22/25 01:30 90 23 109/83 95 Room Air 01/22/25 01:00 87 21 122/82 97 Room Air 01/22/25 01:00 36.7 C Room Air 01/22/25 00:30 91 H 17 128/93 97 Room Air 01/22/25 00:00 90 16 128/93 99 Room Air 01/22/25 00:00 36.6 C Room Air 01/21/25 23:30 87 16 125/84 98 Room Air 01/21/25 23:00 85 15 128/94 97 Room Air 01/21/25 23:00 36.6 C Room Air 01/21/25 22:14 86 01/21/25 22:00 84 18 114/75 96 Room Air 01/21/25 22:00 36.9 C 01/21/25 21:42 84 23 97 Room Air 01/21/25 21:30 36.9 C 85 18 128/97 97 Room Air Laboratory Results Laboratory Results WBC 6.62 K/ul (4.8-10.8) 01/21/25 21: RBC 4.15 M/uL (4.20-5.40) L 01/21/25 21: Hgb 12.7 g/dL (12.0-16.0) 01/21/25 21: Hct 37.0 % (37.0-47.0) 01/21/25 21: MCV 89.2 fL (80.0-100.0) 01/21/25 21: MCH 30.6 pg (25.0-34.0) 01/21/25 21: MCHC 34.3 g/dL (32.0-36.0) 01/21/25 21: RDW Std Deviation 47.2 fL (36.4-46.3) H 01/21/25 21: RDW Coeff of Marielos 14.5 % (11.5-14.5) 01/21/25 21: Plt Count 268 K/uL (130-400) 01/21/25 21: MPV 11.4 fL (9.4-12.4) 01/21/25 21: Immature Gran % (Auto) 0.2 % 01/21/25: Neut % (Auto) 61.5 % 01/21/25 21: Lymph % (Auto) 23.4 % 01/21/25: [place] % (Auto) 13.4 % 01/21/25: Eos % (Auto) 0.9 % 01/21/25: Baso % (Auto) 0.6 % 01/21/25: Neut # (Auto) 4.07 K/uL (1.40-6.50) 01/21/25: Lymph # (Auto) 1.55 K/uL (1.20-3.40) 01/21/25: [place] # (Auto) 0.89 K/uL (0.11-0.59) H 01/21/25: Eos # (Auto) 0.06 K/uL (0.00-0.50) 01/21/25: Baso # (Auto) 0.04 K/uL (0.00-0.20) 01/21/25: Immature Gran # (Auto) 0.01 K/uL (0.01-0.20) 01/21/25: PT 11.9 Seconds (9.0-12.0) 01/21/25: INR 1.1 (0.9-1.1) 01/21/25: APTT 26 Seconds (21-31) 01/21/25: PTT Ratio 1.0 01/21/25: Sodium 141 mmol/L (136-145) 01/21/25: Potassium 3.7 mmol/L (3.5-5.1) 01/21/25: Chloride 107 mmol/L (98-107) 01/21/25: Carbon Dioxide 23 mmol/L (21-32) 01/21/25: Anion Gap 11 (3-11) 01/21/25: BUN 15 mg/dl (6-23) 01/21/25: Creatinine 1.25 mg/dl (0.6-1.2) H 01/21/25: Est Cr Clr Drug Dosing 49.3 ml/min 01/21/25 21: eGFR 47.24 01/21/25: BUN/Creatinine Ratio 12.0 (10-20) 01/21/25: Glucose 107 mg/dl (70-99(Fasting)) H 01/21/25 21: Calcium 9.0 mg/dl (8.6-10.3) 01/21/25 21: Total Bilirubin 0.6 mg/dl (0.2-1.0) 01/21/25 21:29 AST 22 U/L (13-39) 01/21/25 21: ALT 24 U/L (7-52) 01/21/25 21: Alkaline Phosphatase 174 U/L (34-104) H 01/21/25 21: Troponin I High Sens 11.9 pg/ml (0-14) 01/21/25 21: Total Protein 6.6 gm/dl (6.0-8.3) 01/21/25: Albumin 3.3 gm/dl (3.4-5.0) L 01/21/25 21: Globulin 3.3 gm/dl (2.5-4.0) 01/21/25: Albumin/Globulin Ratio 1.0 (0.9-2) 01/21/25 21: Urine Color Dark Yellow 01/21/25 Unknown Urine Appearance Clear (Clear) 01/21/25 Unknown Urine pH 7.5 (4.5-7.5) 01/21/25 Unknown Ur Specific Gordon 1.027 (1.000-1.030) 01/21/25 Unknown Urine Protein 1+ (Negative) H 01/21/25 Unknown Urine Glucose (UA) Negative (Negative) 01/21/25 Unknown Urine Ketones 2+ (Negative) H 01/21/25 Unknown Urine Blood Negative (Negative) 01/21/25 Unknown Urine Nitrite Negative (Negative) 01/21/25 Unknown Urine Bilirubin 1+ (Negative) H 01/21/25 Unknown Urine Urobilinogen Negative (Negative) 01/21/25 Unknown Ur Leukocyte Esterase 1+ (Negative) H 01/21/25 Unknown Urine WBC (Auto) 0-5 /hpf (0-5) 01/21/25 Unknown Urine RBC (Auto) 6-10 /hpf (0-2) H 01/21/25 Unknown U Hyaline Cast (Auto) 11-20 /lpf (0-2) H 01/21/25 Unknown U Epithel Cells (Auto) 3-5 /hpf (0-2) H 01/21/25 Unknown Urine Bacteria (Auto) None Seen (None Seen) 01/21/25 Unknown Calcium Oxalate Crystal Present (None Prsent) A 01/21/25 Unknown Urine Mucus Present (None Prsent) A 01/21/25 Unknown Urine Comment 01/21/25 Unknown Impressions Ankle X-Ray 01/21/25 21:47 Exam(s): XR LEFT ANKLE, 3+ views EXAM: XR Left Ankle Complete, 3 or More Views CLINICAL HISTORY: Ankle trauma, no prior imaging. TECHNIQUE: Frontal, lateral and oblique views of the left ankle. COMPARISON: No relevant prior studies available. FINDINGS: Bones/joints: Posterior and plantar calcaneal spurs. No acute osseous abnormality. No dislocation. Soft tissues: No appreciable overlying soft tissue abnormality. Vasculature: Regional arterial calcification. IMPRESSION: No acute findings involving the left ankle. Electronically signed by: Quincy Mendez MD 01/21/25 23:35 PM Chest X-Ray 01/21/25 21:47 Exam(s): XR CXR 1 VIEW EXAM: XR Chest, 1 View CLINICAL HISTORY: injury alert, dizziness, weakness.. TECHNIQUE: Frontal view of the chest. COMPARISON: Portable chest single view 12/24/2024 and 01/19/2024 FINDINGS: Lungs: No focal consolidation. The pulmonary vasculature demonstrates no significant radiographic abnormality. Pleural space: Unremarkable. No pneumothorax. No large pleural effusion. Heart: The cardiac silhouette is stable and upper normal limits, accounting for portable technique. Mediastinum: No significant abnormality identified. The trachea is midline. Bones/joints: Unremarkable. No acute fracture. Upper abdomen: The rim calcified rounded structure overlying the diaphragm is presumed in the liver when compared to the prior examinations. IMPRESSION: No focal consolidation or acute cardiopulmonary process identified. Electronically signed by: Quincy Mendez MD 01/21/25 23:40 PM Foot X-Ray 01/21/25 21:47 Exam(s): XR LEFT FOOT, 3+ views EXAM: XR Left Foot Complete, 3 or More Views CLINICAL HISTORY: Foot trauma, no prior imaging. TECHNIQUE: Frontal, lateral and oblique views of the left foot. COMPARISON: No relevant prior studies available. FINDINGS: Bones/joints: Posterior and plantar calcaneal spurs noted. No acute fracture. No dislocation. Soft tissues: Unremarkable. No radiopaque foreign body. IMPRESSION: No acute findings involving the left foot. Electronically signed by: Quincy Mendez MD 01/21/25 23:39 PM Knee X-Ray 01/21/25 21:47 Exam(s): XR LEFT KNEE, 1-2 views EXAM: XR Left Knee, 1 or 2 Views CLINICAL HISTORY: Knee trauma, no prior imaging. TECHNIQUE: Frontal and/or lateral views of the left knee. COMPARISON: Bilateral knees dated 04/30/2024 FINDINGS: Bones/joints: Degenerative changes diffusely noted involving the left knee, most prominent involving the medial compartment and patellofemoral compartment. No acute fracture. No dislocation. Soft tissues: Soft tissue fat stranding involving the distal thigh and proximal calf. No radiopaque foreign body or subcutaneous emphysema. IMPRESSION: Soft tissue fat stranding involving the distal thigh and proximal calf. No radiopaque foreign body or subcutaneous emphysema. No acute osseous abnormality involving the left knee. Electronically signed by: Quincy Mendez MD 01/21/25 23:43 PM Tibia/Fibula X-Ray 01/21/25 21:47 Exam(s): XR LEFT TIB/FIB, 2 views EXAM: XR Left Tibia and Fibula, 2 Views CLINICAL HISTORY: Lower leg trauma. TECHNIQUE: Frontal and lateral views of the left tibia and fibula. COMPARISON: No relevant prior studies available. FINDINGS: Bones/joints: Moderate degenerative changes involving the medial compartment and patellofemoral compartment. No acute osseous abnormality or abnormal alignment. Soft tissues: Mild subcutaneous edema suggested throughout the distal thigh and calf. No radiopaque foreign body or subcutaneous emphysema. IMPRESSION: Mild subcutaneous edema suggested throughout the distal thigh and calf. No radiopaque foreign body or subcutaneous emphysema. No acute osseous abnormality. Electronically signed by: Quincy Mendez MD 01/21/25 23:41 PM Diagnostic Findings EKG as per my interpretation : Rate 85, NSR, normal axis, LVH, no ischemia
[2025-01-22] MEDS: LACTATED RINGER'S 1,000 ML IV ONE (02:33)
[2025-01-22] MEDS: SODIUM CHLORIDE 0.9% 500 ML IV ONE ×2 (02:44→15:15)
[2025-01-22] MEDS ORDERED: POLYETHYLENE (MIRALAX) 17 GM PACK PO PRN (02:53)
[2025-01-22] MEDS ORDERED: MELATONIN 3 MG TAB PO PRN (02:55)
[2025-01-22] MEDS ORDERED: SENNA 8.6 MG TAB PO PRN (04:00)
[2025-01-22 04:12] LABS: Magnesium 1.9 mg/dl (1.7-2.4)
[2025-01-22 04:17] LABS: Creatine Kinase 82.0 U/L (26-192)
[2025-01-22 05:07] LABS: Hematocrit (blood only) 33.4 % (37.0-47.0); Hemoglobin 11.4 g/dL (12.0-16.0); Immature Granulocytes # (auto) 0.01 K/uL (0.01-0.20); Immature Granulocytes % (auto) 0.2 %; Mean Corpuscular Hemoglobin 29.9 pg (25.0-34.0); Mean Corpuscular Volume 87.7 fL (80.0-100.0); Platelet Count 205 K/uL (130-400); RDW Standard Deviation 46.6 fL (36.4-46.3); Red Blood Count 3.81 M/uL (4.20-5.40); White Blood Count 6.01 K/ul (4.8-10.8)
[2025-01-22 05:21] LABS: Anion Gap 7.0 (3-11); Blood Urea Nitrogen 15.0 mg/dl (6-23); Calcium 8.1 mg/dl (8.6-10.3); Carbon Dioxide 23.0 mmol/L (21-32); Chloride 110.0 mmol/L (98-107); Creatinine Clr Calc Pharmacy 58.7 ml/min; Glucose 95.0 mg/dl (70-99(Fasting)); Potassium 3.7 mmol/L (3.5-5.1); Sodium 140.0 mmol/L (136-145)
[2025-01-22 05:36] LABS: Thyroid Stimulating Hormone 4.957 uIu/ml (0.300-4.500)
[2025-01-22 06:11] LABS: T4 Free Thyroxine 0.9 ng/dl (0.61-1.60)
[2025-01-22] MEDS: LEVOTHYROXINE SODIUM 100 MCG TABLET PO SCH (06:16)
--- NOTE | 2025-01-22 06:51 | Emergency Department Note ---
Impression & Plan Fall, Weakness, Acute dehydration admit to the [facility] ED Provider Note NAME: FILIBERTO SIMMONS AGE: 69 SEX: Female INFORMANT: Patient ED PROVIDER(S): Rosibel Walker DO CHIEF COMPLAINT: fall PLAN: Disposition: Admit to the [facility] MEDICAL DECISION MAKING: This is a 69-year-old female patient who underwent total knee replacement with Dr. Fuentes on December 23. Following that hospitalization, she went to [facility] for rehab. Patient was discharged last to home. Since that time, the patient has had increasing weakness and suffered a couple of falls. Patient does take Eliquis. Patient fell both yesterday and today and now has increasing pain in both knees, calfs and feet. She describes weakness, dizziness and decreased appetite. Of note, the patient was given prescribed oxycodone for the first time. This may have contributed to the patient's symptoms. While the patient was in [facility], she took an antibiotic for possible urinary tract infection. She developed diarrhea yesterday and diffuse abdominal pain. On physical exam here today, the patient appears to be dehydrated with dry mucous membranes. Laboratory studies reveal no leukocytosis or significant anemia. Coagulation studies were normal. Renal function is normal. Glucose is normal. Troponin was negative. Urinalysis appears to be contaminated. Patient was bolused with IV normal saline solution and given a dose of Tylenol for the pain in her lower extremities. X-rays of her lower extremities are without evidence of traumatic injury. I had extensive conversation with the patient's daughter and grandson. I do not feel that the patient is able to remain safely at home and will require admission back in the hospital for case management evaluation for possible additional rehab status post orthopedic surgery. Care/management discussed with: The patient's grandson, the patient's daughter, ED case management and the [facility] Triage Nursing notes: reviewed and agree with them. Vital Signs: reviewed and remarkable for no significant abnormalities Additional History obtained from: The grandson who accompanies the patient here to the emergency department as well as the patient's daughter Chronic Medical/Social Conditions affecting care: The patient does take Eliquis Prior/ Outside/ External records reviewed: I did review inpatient records from her recent hospitalization for total knee replacement Differential Diagnosis: Traumatic injury to the lower extremities from these recent falls. Dehydration, medication side effects from oxycodone, hypoglycemia Diagnostics, independently interpreted by me: ECG: normal sinus rhythm at a rate of [address] segment elevation or signs of ischemia. There is no ectopy. Cardiac Monitoring: Normal sinus rhythm at a rate of 93 Imaging studies: right knee x-ray: No acute fracture as per my independent interpretation Left knee x-ray: No acute fracture as per my independent interpretation left foot x-ray: No acute fracture as per my independent interpretation left ankle x-ray: No acute fracture as per my independent interpretation Chest x-ray: No acute pulmonary consolidation or infiltrate left tib-fib: No acute fractures identified. HPI: 69 year old Female arrives for evaluation of multiple falls. Patient was discharged from [facility] rehab just 4-5 days ago. Patient had been admitted there after having a right sided total knee replacement on December 23. Patient had been doing well at rehab but when she was discharged back to her home, she had decreased ambulation, increasing weakness and dizziness. The patient had just recently developed diarrhea and decreased appetite. PAST MEDICAL HISTORY: See Below, PAST SURGICAL HISTORY: See Below, SOCIAL HISTORY: Patient is currently living with her daughter and grandson, HOME MEDICATIONS: See Below ALLERGIES: See list VITALS: See Below PHYSICAL EXAMINATION: Primary Survey Airway: Intact Breathing: Normal, breath sounds equal bilaterally Circulation: Skin warm, distal pulses 2+, capillary refill less than 2 seconds Disability Pupils: Equal and reactive to light, 6mm, brisk GCS: 15, E = 6 V=5 M= 4 Motor Function: Moves all extremities. Sensory: No deficits Secondary Survey GEN: Well developed and well-nourished HEAD: Normal cephalic atraumatic. Mouth-dry mucous membranes. EYES: Pupils round reactive to light, conjunctiva clear, extraocular movements intact, no raccoons eyes ENT: No fluid in external acoustic canals, no hemotympanum, no levy's sign, nares patent, oropharynx clear NECK: No JVD, midline trachea, no cervical spine tenderness, HEART: Regular rate and rhythm LUNGS: Clear to auscultation bilaterally. CHEST: Chest wall non-tender, no bruising/deformity ABD: No Sylvester-Carvajal's or Kensett's sign, soft, non-tender, no rebound or guarding, PELVIS: Stable to rock BACK: No step offs or deformities, T-L spine non tender EXT: right lower extremity-bandage in place over the knee with compression stocking in place over the entire leg. Easily palpable distal pulses. There is limited range of motion to the right knee. Left lower extremity has normal range of motion. The patient does have pain to palpation over the dorsal aspect of that foot. Upper extremities have no evidence of trauma. NEURO: CNII-XII grossly intact, no sensory deficits Skin: Dry with poor turgor. There are no rashes. Emergency Department course: The patient was evaluated in room A-12-a as an i njury alert IV lock was initiated and labs were drawn as above. A urine specimen was obtained. Patient was bolused with 500 cc of normal saline solution and given an oral dose of Tylenol for her pain. She underwent multiple plain films of both lower extremities which were all negative for acute traumatic injuries. I had detailed conversations with the patient's grandson and her daughter about the patient's recovery at home and her ability to ambulate and be safe with ambulation at home with a walker. It seems that the patient does not have the strength to ambulate and keep herself safe at this time as she has had multiple falls. This is concerning given the fact that she is currently on Eliquis. I discussed the case with the esthetician and manager medical spa and [facility] Hospitalist and they will evaluate for further inpatient care Past Med/Surg History Problem List (Updated 01/03/25 @ 00:07 by Shahida Strickland) Syncope Acute dehydration (Acute) Weakness (Acute) Fall (Acute) Status post total right knee replacement Medical History (Updated 01/22/25 @ 07:45 by Nhan Chiu MD) Aortic root enlargement Follows with [facility] cardio "Mild aortic root enlargement 4.0 cm and ascending aorta dilatation at 4.4 cm" CAD (coronary artery disease) 2018 cath- nonobstructive "mild coronary atherosclerosis and luminal irregularities but no obstruction" per cardio records Hearing deficit bilateral hearing aides Renal cyst Right kidney Follows with Dr. 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 Follows with [facility] heme/onc- per 11/28/24 visit, "Most likely dehydration occurred following gastric bypass surgery causing thrombotic complications.." History of COVID-19 10/2020- Covid PNA per records, [facility] admission for about 1 week, no ventilator > resolved Sleep apnea Hx obesity hypoventilation per [facility] records Did not tolerate device, "only wears a nose piece" Asthma Hypothyroidism Thyroid nodule monitoring Depression Fibromyalgia Hypertension Surgical History (Updated 01/03/25 @ 00:07 by Shahida Strickland) History of cardiac cath (2017) No stents History of colonoscopy History of tooth extraction all teeth removed S/P carpal tunnel release bilateral S/P CARROLL (total abdominal hysterectomy) (2001) H/O hernia repair History of appendectomy History of esophagogastroduodenoscopy (EGD) History of cataract surgery R/L S/P thyroid biopsy negative Hx of gastric bypass (05/14/24) + hiatal hernia repair [facility] History of cholecystectomy Family History Mother FHx: stomach cancer FHx: liver cancer Father FHx: lung cancer Other No family history of adverse response to anesthesia Social History Smoking Status: Never smoker Second Hand Exposure: No; Do You Dip or Chew Tobacco: No; Tobacco Cessation Education Requested by Patient: No Hx Alcohol Use: No Hx Substance Use: No Preferred Language: [place] Communication Ability: Effective Visual Impairment: No Limitations Hearing Ability: Normal Chief Accounting Officer Required: No Beliefs That Will Affect Care: None Current Living Situation: Family Current Living Situation Comment: Pt lives with grandson at home in a garage apartment current occupational status: unemployed Feels Safe at Home: Yes Safety Concerns: Feels Safe At This Time Assistive Devices: CPAP, Denture - Upper, Denture - Lower, Glasses and Walker Allergies Allergies Allergy/AdvReac Type Severity Reaction Status Date / Time semaglutide [From Jenna] Allergy Intermediate Abdominal Verified 12/23/24 07:34 Pain paroxetine AdvReac Mild Dizziness Verified 12/23/24 07:34 Home Meds Home Medications Medication Instructions Recorded Confirmed levothyroxine 100 mcg tablet 100 mcg PO QAM 10/12/18 01/22/25 (Synthroid) gabapentin 400 mg capsule 400 mg PO BID 05/22/24 01/22/25 (Neurontin) multivitamin (Daily Multi-Vitamin 1 tab PO DAILY 05/22/24 01/22/25 tablet) apixaban 5 mg tablet (Eliquis) 5 mg PO BID 07/11/24 01/22/25 aspirin 81 mg chewable tablet 81 mg PO QAM 07/11/24 01/22/25 atorvastatin 40 mg tablet (Lipitor) 40 mg PO QAM 07/11/24 01/22/25 cholecalciferol (vitamin D3) 25 25 mcg PO QAM 07/11/24 01/22/25 mcg (1,000 unit) tablet (Vitamin D3) diclofenac sodium 1 % topical gel 2 g topical QID PRN ARTHRITIS 07/11/24 01/22/25 fluticasone furoate 100 1 inh inhalation QAM 07/11/24 01/22/25 mcg-vilanterol 25 mcg/dose inhalation powder (Breo Ellipta) levocetirizine 5 mg tablet (24HR 5 mg PO QPM 07/11/24 01/22/25 Allergy Relief) omeprazole 40 mg capsule,delayed 40 mg PO Q12 07/11/24 01/22/25 release ondansetron 4 mg disintegrating 4 mg translingual Q8 PRN Nausea 07/11/24 01/22/25 tablet polyethylene glycol 3350 17 gram 17 g PO QAM PRN Constipation 07/11/24 01/22/25 oral powder packet quetiapine 300 mg tablet (Seroquel) 300 mg PO HS 07/11/24 01/22/25 bisacodyl 5 mg tablet,delayed 15 mg PO HS 11/22/24 01/22/25 release (Dulcolax (bisacodyl)) bupropion HCl 150 mg tablet,12 hr 100 mg PO BID 11/22/24 01/22/25 sustained-release (Wellbutrin SR) acetaminophen 500 mg tablet 500 mg PO BID 01/22/25 01/22/25 (Acetaminophen Extra Strength) Previous Rx's Medication Instructions Recorded oxycodone 5 mg tablet 5 mg PO Q6H PRN pain #30 tabs 12/24/24 sennosides 17.2 mg tablet (Senokot 17.2 mg PO HS PRN constipation #14 12/24/24 Extra Strength) tabs Results & Data (ED) Vital Signs Vital Signs - 24 hr 01/21/25 21:30 01/21/25 21:42 01/21/25 22:00 Temperature 36.9 C 36.9 C Temperature Source Oral Oral Pulse Rate 85 84 Pulse Rate from SpO2 Sensor 83 Pulse Rhythm Regular Pulse Strength Normal Respiratory Rate 18 23 Respiratory Effort / Characteristics Non-Labored Spontaneous Respiratory Depth Normal Respiratory Pattern Regular Blood Pressure 128/97 Blood Pressure Mean 107 Blood Pressure Position Lying Pulse Oximetry 97 97 Oxygen Delivery Method Room Air Room Air Sepsis Recent Fever Within 48 Hours No Sepsis New/Unexplained Change in Mental Status N/A Sepsis Action Taken by Nursing No Action Required 01/21/25 22:00 01/21/25 22:14 01/21/25 23:00 Temperature 36.6 C Temperature Source Oral Pulse Rate 84 86 Pulse Rate from SpO2 Sensor 84 Pulse Rhythm Pulse Strength Respiratory Rate 18 Respiratory Effort / Characteristics Non-Labored Respiratory Depth Normal Respiratory Pattern Regular Blood Pressure 114/75 Blood Pressure Mean 88 Blood Pressure Position Pulse Oximetry 96 Oxygen Delivery Method Room Air Room Air Sepsis Recent Fever Within 48 Hours Sepsis New/Unexplained Change in Mental Status Sepsis Action Taken by Nursing 01/21/25 23:00 01/21/25 23:30 01/22/25 00:00 Temperature 36.6 C Temperature Source Oral Pulse Rate 85 87 Pulse Rate from SpO2 Sensor 84 87 Pulse Rhythm Pulse Strength Respiratory Rate 15 16 Respiratory Effort / Characteristics Non-Labored Respiratory Depth Normal Respiratory Pattern Regular Blood Pressure 128/94 125/84 Blood Pressure Mean 105 97 Blood Pressure Position Pulse Oximetry 97 98 Oxygen Delivery Method Room Air Room Air Room Air Sepsis Recent Fever Within 48 Hours Sepsis New/Unexplained Change in Mental Status Sepsis Action Taken by Nursing 01/22/25 00:00 01/22/25 00:30 01/22/25 01:00 Temperature 36.7 C Temperature Source Oral Pulse Rate 90 91 H Pulse Rate from SpO2 Sensor 90 91 H Pulse Rhythm Pulse Strength Respiratory Rate 16 17 Respiratory Effort / Characteristics Non-Labored Respiratory Depth Normal Respiratory Pattern Regular Blood Pressure 128/93 128/93 Blood Pressure Mean 104 104 Blood Pressure Position Pulse Oximetry 99 97 Oxygen Delivery Method Room Air Room Air Room Air Sepsis Recent Fever Within 48 Hours Sepsis New/Unexplained Change in Mental Status Sepsis Action Taken by Nursing 01/22/25 01:00 01/22/25 01:30 01/22/25 01:48 Temperature Temperature Source Pulse Rate 87 90 87 Pulse Rate from SpO2 Sensor 87 90 Pulse Rhythm Pulse Strength Respiratory Rate 21 23 Respiratory Effort / Characteristics Respiratory Depth Respiratory Pattern Blood Pressure 122/82 109/83 Blood Pressure Mean 95 91 Blood Pressure Position Pulse Oximetry 97 95 Oxygen Delivery Method Room Air Room Air Sepsis Recent Fever Within 48 Hours Sepsis New/Unexplained Change in Mental Status Sepsis Action Taken by Nursing 01/22/25 02:00 01/22/25 02:00 Temperature 36.6 C Temperature Source Oral Pulse Rate 87 Pulse Rate from SpO2 Sensor 87 Pulse Rhythm Pulse Strength Respiratory Rate 14 Respiratory Effort / Characteristics Non-Labored Respiratory Depth Normal Respiratory Pattern Regular Blood Pressure 123/84 Blood Pressure Mean 97 Blood Pressure Position Pulse Oximetry 96 Oxygen Delivery Method Room Air Room Air Sepsis Recent Fever Within 48 Hours Sepsis New/Unexplained Change in Mental Status Sepsis Action Taken by Nursing Laboratory Data 01/22/25 04:44 01/22/25 04:44 Lab Results 01/21/25 01/21/25 Range/Units 21:29 Unknown WBC 6.62 (4.8-10.8) K/ul RBC 4.15 L (4.20-5.40) M/uL Hgb 12.7 (12.0-16.0) g/dL Hct 37.0 (37.0-47.0) % MCV 89.2 (80.0-100.0) fL MCH 30.6 (25.0-34.0) pg MCHC 34.3 (32.0-36.0) g/dL RDW Std Deviation 47.2 H (36.4-46.3) fL RDW Coeff of Marielos 14.5 (11.5-14.5) % Plt Count 268 (130-400) K/uL MPV 11.4 (9.4-12.4) fL Immature Gran % (Auto) 0.2 % Neut % (Auto) 61.5 % Lymph % (Auto) 23.4 % Coke % (Auto) 13.4 % Eos % (Auto) 0.9 % Baso % (Auto) 0.6 % Neut # (Auto) 4.07 (1.40-6.50) K/uL Lymph # (Auto) 1.55 (1.20-3.40) K/uL Coke # (Auto) 0.89 H (0.11-0.59) K/uL Eos # (Auto) 0.06 (0.00-0.50) K/uL Baso # (Auto) 0.04 (0.00-0.20) K/uL Immature Gran # (Auto) 0.01 (0.01-0.20) K/uL PT 11.9 (9.0-12.0) Seconds INR 1.1 (0.9-1.1) APTT 26 (21-31) Seconds PTT Ratio 1.0 Sodium 141 (136-145) mmol/L Potassium 3.7 (3.5-5.1) mmol/L Chloride 107 (98-107) mmol/L Carbon Dioxide 23 (21-32) mmol/L Anion Gap 11 (3-11) BUN 15 (6-23) mg/dl Creatinine 1.25 H (0.6-1.2) mg/dl Est Cr Clr Drug Dosing 49.3 ml/min eGFR 47.24 BUN/Creatinine Ratio 12.0 (10-20) Glucose 107 H (70-99(Fasting)) mg/dl Calcium 9.0 (8.6-10.3) mg/dl Magnesium 1.9 (1.7-2.4) mg/dl Total Bilirubin 0.6 (0.2-1.0) mg/dl AST 22 (13-39) U/L ALT 24 (7-52) U/L Alkaline Phosphatase 174 H (34-104) U/L Total Creatine Kinase 82 (26-192) U/L Troponin I High Sens 11.9 (0-14) pg/ml Total Protein 6.6 (6.0-8.3) gm/dl Albumin 3.3 L (3.4-5.0) gm/dl Globulin 3.3 (2.5-4.0) gm/dl Albumin/Globulin Ratio 1.0 (0.9-2) Urine Color Dark Yellow Urine Appearance Clear (Clear) Urine pH 7.5 (4.5-7.5) Ur Specific [place] 1.027 (1.000-1.030) Urine Protein 1+ H (Negative) Urine Glucose (UA) Negative (Negative) Urine Ketones 2+ H (Negative) Urine Blood Negative (Negative) Urine Nitrite Negative (Negative) Urine Bilirubin 1+ H (Negative) Urine Urobilinogen Negative (Negative) Ur Leukocyte Esterase 1+ H (Negative) Urine WBC (Auto) 0-5 (0-5) /hpf Urine RBC (Auto) 6-10 H (0-2) /hpf U Hyaline Cast (Auto) 11-20 H (0-2) /lpf U Epithel Cells (Auto) 3-5 H (0-2) /hpf Urine Bacteria (Auto) None Seen (None Seen) Calcium Oxalate Crystal Present A (None Prsent) Urine Mucus Present A (None Prsent) Urine Comment Administered Medications Acetaminophen (Acetaminophen 500 Mg Tab) 500 mg PO BID [facility] Stop: 02/21/25 08:59 Last Admin: 01/22/25 10:14 Dose: 500 mg Documented By: SHELLY Apixaban (Apixaban 5 Mg Tablet) 5 mg PO BID [facility] Stop: 02/21/25 08:59 Last Admin: 01/22/25 10:15 Dose: 5 mg Documented By: SHELLY Aspirin (Aspirin 81 Mg Chew) [facility] [place]: 02/21/25 08:59 Last Admin: 01/22/25 10:14 Dose: 81 mg Documented By: SHELLY Atorvastatin Calcium (Atorvastatin 40 Mg Tab) 40 mg PO QAM [facility] Stop: 02/21/25 08:59 Last Admin: 01/22/25 10:16 Dose: 40 mg Documented By: SHLELY Bupropion HCl (Bupropion Sr 100 Mg Tabcr) 100 mg PO BID [facility] Stop: 02/21/25 08:59 Last Admin: 01/22/25 10:16 Dose: 100 mg Documented By: SHELLY Fluticasone/Vilanterol (Fluticasone/Vilanterol 100/25mcg 14 Puffs/Inhaler) 1 puffs INH QAM [facility] Stop: 02/21/25 08:59 Last Admin: 01/22/25 10:16 Dose: 1 puffs Documented By: SHELLY Gabapentin (Gabapentin 400 Mg Cap) 400 mg PO BID [facility] Stop: 02/21/25 08:59 Last Admin: 01/22/25 10:16 Dose: 400 mg Documented By: SHELLY Levothyroxine Sodium (Levothyroxine Sodium 100 Mcg Tablet) 100 mcg PO DAILYBB [facility] Stop: 02/21/25 06:29 Last Admin: 01/22/25 06:16 Dose: 100 mcg Documented By: RICARDO Multivitamins (Multivitamin Tab) 1 tab PO DAILY [facility] Stop: 02/21/25 08:59 Last Admin: 01/22/25 10:15 Dose: 1 tab Documented By: SHELLY Pantoprazole Sodium (Pantoprazole 40 Mg Tab) 40 mg PO Q12 [facility] Stop: 02/21/25 08:59 Last Admin: 01/22/25 10:15 Dose: 40 mg Documented By: SHELLY Quetiapine Fumarate (Quetiapine Fumarate 300 Mg Tablet) 300 mg PO HS [facility] Stop: 02/21/25 02:54 Last Admin: 01/22/25 04:41 Dose: 300 mg Documented By: RICARDO Vitamin D (Cholecalciferol 25 Mcg (1000 Units) Tab) 25 mcg PO QAM [facility] Stop: 02/21/25 08:59 Last Admin: 01/22/25 10:17 Dose: 25 mcg Documented By: SHELLY Discontinued Medications Acetaminophen (Acetaminophen 500 Mg Tab) 1,000 mg PO NOW STA Stop: 01/22/25 00:17 Last Admin: 01/22/25 00:21 Dose: 1,000 mg Documented By: ZACH Co-signed By: DANA Sodium Chloride (Nss) 500 mls @ 999 mls/hr IV .Q31M ONE Stop: 01/22/25 02:45 Last Admin: 01/22/25 02:44 Dose: Not Given Documented By: DANA Lactated Ringer's (Lr) 1,000 mls @ 100 mls/hr IV .Q10H ONE Stop: 01/22/25 12:15 Last Infusion: 01/22/25 12:06 Dose: Infused Documented By: Admin: 01/22/25 02:33 Dose: 100 mls/hr Documented By: ZACH Co-signed By: DANA Potassium Chloride (Potassium Chloride Crtab 20 Meq Tabcr) 20 meq PO NOW STA Stop: 01/22/25 12:00 Last Admin: 01/22/25 12:16 Dose: 20 meq Documented By: SHELLY Imaging Data Radiologist's Impression: Ankle X-Ray 01/21/25 21:47 Exam(s): XR LEFT ANKLE, 3+ views EXAM: XR Left Ankle Complete, 3 or More Views CLINICAL HISTORY: Ankle trauma, no prior imaging. TECHNIQUE: Frontal, lateral and oblique views of the left ankle. COMPARISON: No relevant prior studies available. FINDINGS: Bones/joints: Posterior and plantar calcaneal spurs. No acute osseous abnormality. No dislocation. Soft tissues: No appreciable overlying soft tissue abnormality. Vasculature: Regional arterial calcification. IMPRESSION: No acute findings involving the left ankle. Electronically signed by: Quincy Mendez MD 01/21/25 23:35 PM Chest X-Ray 01/21/25 21:47 Exam(s): XR CXR 1 VIEW EXAM: XR Chest, 1 View CLINICAL HISTORY: injury alert, dizziness, weakness.. TECHNIQUE: Frontal view of the chest. COMPARISON: Portable chest single view 12/24/2024 and 01/19/2024 FINDINGS: Lungs: No focal consolidation. The pulmonary vasculature demonstrates no significant radiographic abnormality. Pleural space: Unremarkable. No pneumothorax. No large pleural effusion. Heart: The cardiac silhouette is stable and upper normal limits, accounting for portable technique. Mediastinum: No significant abnormality identified. The trachea is midline. Bones/joints: Unremarkable. No acute fracture. Upper abdomen: The rim calcified rounded structure overlying the diaphragm is presumed in the liver when compared to the prior examinations. IMPRESSION: No focal consolidation or acute cardiopulmonary process identified. Electronically signed by: Quincy Mendez MD 01/21/25 23:40 PM Foot X-Ray 01/21/25 21:47 Exam(s): XR LEFT FOOT, 3+ views EXAM: XR Left Foot Complete, 3 or More Views CLINICAL HISTORY: Foot trauma, no prior imaging. TECHNIQUE: Frontal, lateral and oblique views of the left foot. COMPARISON: No relevant prior studies available. FINDINGS: Bones/joints: Posterior and plantar calcaneal spurs noted. No acute fracture. No dislocation. Soft tissues: Unremarkable. No radiopaque foreign body. IMPRESSION: No acute findings involving the left foot. Electronically signed by: Quincy Mendez MD 01/21/25 23:39 PM Knee X-Ray 01/21/25 21:47 Exam(s): XR RIGHT KNEE, 1-2 views EXAM: XR Right Knee, 1 or 2 Views CLINICAL HISTORY: Knee trauma, no prior imaging. TECHNIQUE: Frontal and/or lateral views of the right knee. COMPARISON: Bilateral knees 04/30/2024 FINDINGS: Bones/joints: A right total knee arthroplasties identified, new from the previous examination. No radiographic evidence of a suprapatellar joint effusion. No acute fracture. No dislocation. Soft tissues: Soft tissue fat stranding noted about the knee medially and laterally. No radiopaque foreign body or subcutaneous emphysema. IMPRESSION: Soft tissue fat stranding noted about the knee medially and laterally. No radiopaque foreign body or subcutaneous emphysema. No acute osseous abnormality involving the right knee. Electronically signed by: Quincy Mendez MD 01/21/25 23:41 PM Knee X-Ray 01/21/25 21:47 Exam(s): XR LEFT KNEE, 1-2 views EXAM: XR Left Knee, 1 or 2 Views CLINICAL HISTORY: Knee trauma, no prior imaging. TECHNIQUE: Frontal and/or lateral views of the left knee. COMPARISON: Bilateral knees dated 04/30/2024 FINDINGS: Bones/joints: Degenerative changes diffusely noted involving the left knee, most prominent involving the medial compartment and patellofemoral compartment. No acute fracture. No dislocation. Soft tissues: Soft tissue fat stranding involving the distal thigh and proximal calf. No radiopaque foreign body or subcutaneous emphysema. IMPRESSION: Soft tissue fat stranding involving the distal thigh and proximal calf. No radiopaque foreign body or subcutaneous emphysema. No acute osseous abnormality involving the left knee. Electronically signed by: Quincy Mendez MD 01/21/25 23:43 PM Tibia/Fibula X-Ray 01/21/25 21:47 Exam(s): XR LEFT TIB/FIB, 2 views EXAM: XR Left Tibia and Fibula, 2 Views CLINICAL HISTORY: Lower leg trauma. TECHNIQUE: Frontal and lateral views of the left tibia and fibula. COMPARISON: No relevant prior studies available. FINDINGS: Bones/joints: Moderate degenerative changes involving the medial compartment and patellofemoral compartment. No acute osseous abnormality or abnormal alignment. Soft tissues: Mild subcutaneous edema suggested throughout the distal thigh and calf. No radiopaque foreign body or subcutaneous emphysema. IMPRESSION: Mild subcutaneous edema suggested throughout the distal thigh and calf. No radiopaque foreign body or subcutaneous emphysema. No acute osseous abnormality. Electronically signed by: Quincy Mendez MD 01/21/25 23:41 PM Discharge Plan Visit Data Chief Complaint: Fall Stated Complaint: INJURY ALERT, FALL ED Provider: Rosibel Walker Discharge Problem: Fall, Weakness, Acute dehydration Patient Disposition: Admitted As Inpatient Condition: Serious Discharge Instructions Interventions: ED Discharge Assessment Last Done: 01/22/25 06:43
--- NOTE | 2025-01-22 09:30 | Orthopedic Consultation ---
Date of Service January 22, 2025 Assessment & Plan (1) Status post total right knee replacement: * Case/imaging reviewed and discussed with Dr Fuentes * Patient is recovering as expected from right TKA * No specific complaints regarding the right knee * Recommend continued PT, activity as tolerated * Dressing removed, may leave open to air. Okay for shower * Weight bearing status: WBAT * Daily treatment: Physical Therapy/ Occupational Therapy per protocol * Pain control * Disposition: TBD * Remainder care per primary team * Will follow peripherally in hospital, follow-up as scheduled with Dr. Fuentes in the coming weeks History of Present Illness Reason for Consultation: s/p R TKA Requesting Physician: . Attending Physician: Napoleon Corbett MD .Patient is a 69y/o female with recent right knee replacement. PMH including chronic diastolic heart failure (EF 65-70%, TTE 2023), nonocclusive CAD, PVD, hypertension, transverse sinus thrombosis on Eliquis, AMIRA, GERD, history gastric bypass, anxiety/mood disorder/schizophrenia/fibromyalgia, hypothyroidism, prediabetes. Known to orthopedic team with recent R TKA with Dr. Fuentes 12/23/2024. Initially was recovering at rehab but has been home for the past week or 2. Presents to hospital with recurrent falls, admitted to hospital medicine team for syncopal workup. Orthopedics consulted for management recommendations per patient request. At time of exam patient lying comfortably in bed, no acute distress. Reports that she has been improving slowly with therapy regarding her right knee replacement. Still unsteady at times while ambulating but her range of motion has improved quite well. No specific complaints regarding the knee. Allergies Allergy/AdvReac Type Severity Reaction Status Date / Time semaglutide [From Wegovy] Allergy Intermediate Abdominal Verified 12/23/24 07:34 Pain paroxetine AdvReac Mild Dizziness Verified 12/23/24 07:34 Home Medications Medication Instructions Recorded Confirmed Type levothyroxine 100 mcg tablet 100 mcg PO QAM 10/12/18 01/22/25 History (Synthroid) gabapentin 400 mg capsule 400 mg PO BID 05/22/24 01/22/25 History (Neurontin) multivitamin (Daily Multi-Vitamin 1 tab PO DAILY 05/22/24 01/22/25 History tablet) apixaban 5 mg tablet (Eliquis) 5 mg PO BID 07/11/24 01/22/25 History aspirin 81 mg chewable tablet 81 mg PO QAM 07/11/24 01/22/25 History atorvastatin 40 mg tablet (Lipitor) 40 mg PO QAM 07/11/24 01/22/25 History cholecalciferol (vitamin D3) 25 25 mcg PO QAM 07/11/24 01/22/25 History mcg (1,000 unit) tablet (Vitamin D3) diclofenac sodium 1 % topical gel 2 g topical QID PRN ARTHRITIS 07/11/24 01/22/25 History fluticasone furoate 100 1 inh inhalation QAM 07/11/24 01/22/25 History mcg-vilanterol 25 mcg/dose inhalation powder (Breo Ellipta) levocetirizine 5 mg tablet (24HR 5 mg PO QPM 07/11/24 01/22/25 History Allergy Relief) omeprazole 40 mg capsule,delayed 40 mg PO Q12 07/11/24 01/22/25 History release ondansetron 4 mg disintegrating 4 mg translingual Q8 PRN Nausea 07/11/24 01/22/25 History tablet polyethylene glycol 3350 17 gram 17 g PO QAM PRN Constipation 07/11/24 01/22/25 History oral powder packet quetiapine 300 mg tablet (Seroquel) 300 mg PO HS 07/11/24 01/22/25 History bisacodyl 5 mg tablet,delayed 15 mg PO HS 11/22/24 01/22/25 History release (Dulcolax (bisacodyl)) bupropion HCl 150 mg tablet,12 hr 100 mg PO BID 11/22/24 01/22/25 History sustained-release (Wellbutrin SR) oxycodone 5 mg tablet 5 mg PO Q6H PRN pain #30 tabs 12/24/24 01/22/25 Rx sennosides 17.2 mg tablet (Senokot 17.2 mg PO HS PRN constipation #14 12/24/24 01/22/25 Rx Extra Strength) tabs acetaminophen 500 mg tablet 500 mg PO BID 01/22/25 01/22/25 History (Acetaminophen Extra Strength) Past Med/Surg History Problem List (Updated 01/03/25 @ 00:07 by Background Daemon) Syncope Acute dehydration (Acute) Weakness (Acute) Fall (Acute) Status post total right knee replacement Medical History (Updated 01/22/25 @ 07:45 by Nhan Chiu MD) Aortic root enlargement Follows with [facility] cardio "Mild aortic root enlargement 4.0 cm and ascending aorta dilatation at 4.4 cm" CAD (coronary artery disease) 2018 cath- nonobstructive "mild coronary atherosclerosis and luminal irregularities but no obstruction" per cardio records Hearing deficit bilateral hearing aides Renal cyst Right kidney Follows with Dr. 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 Follows with [facility]) heme/onc- per 11/28/24 visit, "Most likely dehydration occurred following gastric bypass surgery causing thrombotic complications.." History of COVID-19 10/2020- Covid PNA per records, [facility] admission for about 1 week, no ventilator > resolved Sleep apnea Hx obesity hypoventilation per [facility] records Did not tolerate device, "only wears a nose piece" Asthma Hypothyroidism Thyroid nodule monitoring Depression Fibromyalgia Hypertension Surgical History (Updated 01/03/25 @ 00:07 by Shahida Strickland) History of cardiac cath (2017) No stents History of colonoscopy History of tooth extraction all teeth removed S/P carpal tunnel release bilateral S/P CARROLL (total abdominal hysterectomy) (2001) H/O hernia repair History of appendectomy History of esophagogastroduodenoscopy (EGD) History of cataract surgery R/L S/P thyroid biopsy negative Hx of gastric bypass (05/14/24) + hiatal hernia repair [facility] History of cholecystectomy Family History Mother FHx: stomach cancer FHx: liver cancer Father FHx: lung cancer Other No family history of adverse response to anesthesia Social History Smoking Status: Never smoker Second Hand Exposure: No; Do You Dip or Chew Tobacco: No; Hx Alcohol Use: No Hx Substance Use: No Preferred Language: Senegalese Communication Ability: Effective Visual Impairment: No Limitations Hearing Ability: Normal Corpsman Required: No Beliefs That Will Affect Care: None Current Living Situation: Alone current occupational status: unemployed Feels Safe at Home: Yes Assistive Devices: Cane, CPAP, Oxygen - at Night and Walker Review of Systems All systems reviewed & are unremarkable except as noted in HPI & below. Physical Exam . * General: Alert and oriented, no acute distress * Constitutional: well-developed, well-nourished. * Respiratory: Normal respiratory effort, no distress * Gastrointestinal: No tenderness to palpation, no rigidity or guarding. * Skin: No rash or lesion. * Neurologic: Grossly normal * Musculoskeletal: Right knee surgical incision CDI, no evidence of superficial infection or wound breakdown. Staple/sutures removed previously at rehab. Otherwise no obvious deformity or overlying skin changes RLE. Diffuse TTP distal thigh and knee region. Otherwise no specific tenderness of proximal thigh, lower leg, foot/ankle. AROM knee flexion 110 degrees. AROM foot/ankle intact. Sensation intact plantar/dorsal foot. Brisk capillary refill. Results & Data Results & Data Laboratory Results . Diagnostic Findings . Ankle X-Ray 01/21/25 21:47 Exam(s): XR LEFT ANKLE, 3+ views EXAM: XR Left Ankle Complete, 3 or More Views CLINICAL HISTORY: Ankle trauma, no prior imaging. TECHNIQUE: Frontal, lateral and oblique views of the left ankle. COMPARISON: No relevant prior studies available. FINDINGS: Bones/joints: Posterior and plantar calcaneal spurs. No acute osseous abnormality. No dislocation. Soft tissues: No appreciable overlying soft tissue abnormality. Vasculature: Regional arterial calcification. IMPRESSION: No acute findings involving the left ankle. Electronically signed by: Quincy Mendez MD 01/21/25 23:35 PM Chest X-Ray 01/21/25 21:47 Exam(s): XR CXR 1 VIEW EXAM: XR Chest, 1 View CLINICAL HISTORY: injury alert, dizziness, weakness.. TECHNIQUE: Frontal view of the chest. COMPARISON: Portable chest single view 12/24/2024 and 01/19/2024 FINDINGS: Lungs: No focal consolidation. The pulmonary vasculature demonstrates no significant radiographic abnormality. Pleural space: Unremarkable. No pneumothorax. No large pleural effusion. Heart: The cardiac silhouette is stable and upper normal limits, accounting for portable technique. Mediastinum: No significant abnormality identified. The trachea is midline. Bones/joints: Unremarkable. No acute fracture. Upper abdomen: The rim calcified rounded structure overlying the diaphragm is presumed in the liver when compared to the prior examinations. IMPRESSION: No focal consolidation or acute cardiopulmonary process identified. Electronically signed by: Quincy Mendez MD 01/21/25 23:40 PM Foot X-Ray 01/21/25 21:47 Exam(s): XR LEFT FOOT, 3+ views EXAM: XR Left Foot Complete, 3 or More Views CLINICAL HISTORY: Foot trauma, no prior imaging. TECHNIQUE: Frontal, lateral and oblique views of the left foot. COMPARISON: No relevant prior studies available. FINDINGS: Bones/joints: Posterior and plantar calcaneal spurs noted. No acute fracture. No dislocation. Soft tissues: Unremarkable. No radiopaque foreign body. IMPRESSION: No acute findings involving the left foot. Electronically signed by: Quincy Mendez MD 01/21/25 23:39 PM Knee X-Ray 01/21/25 21:47 Exam(s): XR RIGHT KNEE, 1-2 views EXAM: XR Right Knee, 1 or 2 Views CLINICAL HISTORY: Knee trauma, no prior imaging. TECHNIQUE: Frontal and/or lateral views of the right knee. COMPARISON: Bilateral knees 04/30/2024 FINDINGS: Bones/joints: A right total knee arthroplasties identified, new from the previous examination. No radiographic evidence of a suprapatellar joint effusion. No acute fracture. No dislocation. Soft tissues: Soft tissue fat stranding noted about the knee medially and laterally. No radiopaque foreign body or subcutaneous emphysema. IMPRESSION: Soft tissue fat stranding noted about the knee medially and laterally. No radiopaque foreign body or subcutaneous emphysema. No acute osseous abnormality involving the right knee. Electronically signed by: Quincy Mendez MD 01/21/25 23:41 PM Knee X-Ray 01/21/25 21:47 Exam(s): XR LEFT KNEE, 1-2 views EXAM: XR Left Knee, 1 or 2 Views CLINICAL HISTORY: Knee trauma, no prior imaging. TECHNIQUE: Frontal and/or lateral views of the left knee. COMPARISON: Bilateral knees dated 04/30/2024 FINDINGS: Bones/joints: Degenerative changes diffusely noted involving the left knee, most prominent involving the medial compartment and patellofemoral compartment. No acute fracture. No dislocation. Soft tissues: Soft tissue fat stranding involving the distal thigh and proximal calf. No radiopaque foreign body or subcutaneous emphysema. IMPRESSION: Soft tissue fat stranding involving the distal thigh and proximal calf. No radiopaque foreign body or subcutaneous emphysema. No acute osseous abnormality involving the left knee. Electronically signed by: Quincy Mendez MD 01/21/25 23:43 PM Tibia/Fibula X-Ray 01/21/25 21:47 Exam(s): XR LEFT TIB/FIB, 2 views EXAM: XR Left Tibia and Fibula, 2 Views CLINICAL HISTORY: Lower leg trauma. TECHNIQUE: Frontal and lateral views of the left tibia and fibula. COMPARISON: No relevant prior studies available. FINDINGS: Bones/joints: Moderate degenerative changes involving the medial compartment and patellofemoral compartment. No acute osseous abnormality or abnormal alignment. Soft tissues: Mild subcutaneous edema suggested throughout the distal thigh and calf. No radiopaque foreign body or subcutaneous emphysema. IMPRESSION: Mild subcutaneous edema suggested throughout the distal thigh and calf. No radiopaque foreign body or subcutaneous emphysema. No acute osseous abnormality. Electronically signed by: Quincy Mendez MD 01/21/25 23:41 PM PG Care Time/CCT Total # of Minutes Spent Total Time Spent with Patient: Total time spent is greater than 50% in coordination of care (as documented) at patient's floor/unit and/or counseling patient: Coding [place] [address] IN/OBS CONSULT LVL 2,35M Patient Type Established History Problem Focused Exam Problem Focused Medical Decision Making Straight Forward Diagnoses Status post total right knee replacement Z96.651
[2025-01-22] MEDS: ACETAMINOPHEN 500 MG TAB PO SCH (10:14)
[2025-01-22] MEDS: ASPIRIN 81 MG CHEW PO SCH (10:14)
[2025-01-22] MEDS: MULTIVITAMIN TAB PO SCH (10:15)
[2025-01-22] MEDS: APIXABAN 5 MG TABLET PO SCH (10:15)
[2025-01-22] MEDS: ATORVASTATIN 40 MG TAB PO SCH (10:16)
[2025-01-22] MEDS: FLUTICASONE/VILANTEROL 100/25MCG 14 PUFFS/INHALER INH SCH (10:16)
[2025-01-22] MEDS: GABAPENTIN 400 MG CAP PO SCH (10:16)
[2025-01-22] MEDS: CHOLECALCIFEROL 25 MCG (1000 UNITS) TAB PO SCH (10:17)
[2025-01-22] MEDS: POTASSIUM CHLORIDE CRTAB 20 MEQ TABCR PO STA (12:16)
[2025-01-22] MEDS: CETIRIZINE HCL 10 MG TABLET PO SCH (20:38)
--- NOTE | 2025-01-23 05:56 | Electrocardiogram Report ---
Test Reason : Blood Pressure : */* mmHG Vent. Rate : 86 BPM Atrial Rate : 86 BPM P-R Int : 166 ms QRS Dur : 94 ms QT Int : 376 ms P-R-T Axes : 19 -12 21 degrees QTcB Int : 449 ms Normal sinus rhythm Minimal voltage criteria for LVH, may be normal variant ( R in aVL ) Inferior infarct , age undetermined Cannot rule out Anterior infarct , age undetermined Abnormal ECG When compared with ECG of 24-Dec-2024 10:13, No significant change was found Confirmed by Jb Jackman ([id number]) on 01/23/2025 5:56:12 AM Referred By: REFERRED SELF Confirmed By: Jb Jackman
[2025-01-23 06:31] LABS: Hematocrit (blood only) 29.5 % (37.0-47.0); Hemoglobin 10.2 g/dL (12.0-16.0); Mean Corpuscular Hemoglobin 31.1 pg (25.0-34.0); Mean Corpuscular Volume 89.9 fL (80.0-100.0); Platelet Count 192 K/uL (130-400); RDW Standard Deviation 48.3 fL (36.4-46.3); Red Blood Count 3.28 M/uL (4.20-5.40); White Blood Count 4.47 K/ul (4.8-10.8)
[2025-01-23 06:53] LABS: Anion Gap 5.0 (3-11); Blood Urea Nitrogen 14.0 mg/dl (6-23); Calcium 8.3 mg/dl (8.6-10.3); Carbon Dioxide 25.0 mmol/L (21-32); Chloride 113.0 mmol/L (98-107); Creatinine Clr Calc Pharmacy 59.1 ml/min; Glucose 87.0 mg/dl (70-99(Fasting)); Magnesium 1.8 mg/dl (1.7-2.4); Potassium 3.8 mmol/L (3.5-5.1); Sodium 143.0 mmol/L (136-145)
--- NOTE | 2025-01-23 08:51 | XCELERA ---
[id number]
--- NOTE | 2025-01-23 15:23 | Hospitalist Progress Note ---
Date of Service January 23, 2025 Assessment & Plan (1) Syncope: Plan: Per admitting provider w/ addendum: Syncope possibly secondary to orthostasis from diarrheal illness Rule out C. difficile ARF secondary to illness Cr 1.25 on 01/21 -> now down to 1 (resolved), received IVF Check orthostatic vitals - pt found orthostatic yesterday (01/22) Stool C. difficile ordered - no stool Pt says she was constipated at rehab and so received several stool softeners -> possibly had loose BMs from that, cont. to monitor Hold laxatives for now 01/23 pt feels improved today. Says she was walking to bathroom and did not have any dizziness today. BP also improved after IVF. reports calf pain, will obtain Doppler Seen by PT - recommend rehab, CM involved Orthopedics consult Re: Postop eval as per patient request (Patient known to Dr. Fuentes.) Status post total right knee replacement: * Case/imaging reviewed and discussed with Dr Fuentes * Patient is recovering as expected from right TKA * No specific complaints regarding the right knee * Recommend continued PT, activity as tolerated * Dressing removed, may leave open to air. Okay for shower * Weight bearing status: WBAT * Daily treatment: Physical Therapy/ Occupational Therapy per protocol * Pain control * Disposition: TBD * Remainder care per primary team * Will follow peripherally in hospital, follow-up as scheduled with Dr. Fuentes in the coming weeks Echo obtained - LV syst. function is normal. LV EF 60-65%. Grade I diastolic dysfunction. Moderate aortic regurg. Mild pulmonic valv. regurg. Mild mitral regurg. Mild tricuspid regurg. Reviewed previous echo from 2023, no significant valvular disease noted at that time. Recommend follow up w/ cardiology. Chronic diastolic heart failure (EF 65-70%, TTE 2023), patient on the dry side on admission. hx nonocclusive CAD/PVD hypertension, stable BP off maintenance medications. transverse sinus thrombosis on Eliquis Recent right knee surgery (12/2024) history gastric bypass anxiety/mood disorder/schizophrenia/fibromyalgia, at baseline hypothyroidism, TSH slight elevated with normal free T4 , Recheck TSH after 6 weeks prediabetes, hemoglobin A1c of 5.5 from October 2024 DVT prophylaxis. Eliquis DNR as per patient wishes Patient's son Mr. Socrates Hendricks, contact #[phone]. Admission and Anticipated Discharge Date Admission Date: January 22, 2025 Subjective Pt seen in follow up for falls, poss. syncope Hx of recent knee surgery, then pt was at rehab, was Or'ed home on Yesterday pt found orthostatic, she has received IVF Today pt seen lying in bed in NAD. She says she is feeling well. Says she was up to the bathroom and denies any dizziness, also denies any chest pain or shortness of breath. Denies any abd. pain n/v. Reports calf pain. Seen by PT yesterday and recommend rehab. Discussed w/ RN - will need CM involved and perhaps follow up PT eval. Review of Systems Review of Systems: All systems reviewed & are unremarkable except as noted in Subjective Physical Exam Physical Exam: GENERAL: morbidly obese, pleasant, no respiratory distress SKIN: Normal color, warm HEENT: [place] palpebral conjunctivae, no ptosis NECK : Supple CHEST : Decreased breath sounds, no wheezing HEART : RRR, no obvious murmurs ABDOMEN: soft, nontender EXTREMITIES : moves extremities, dressings removed from RLE - post surg incision looks clean dry, charli noted, + some calf tenderness NEUROLOGIC : Coherent, no facial asymmetry, moves extremities Results & Data Results & Data Vital Signs (Past 12 Hours) Vital Signs Temp Pulse Pulse Resp BP Pulse Ox O2 Del Method 01/23/25 15:12 36.8 C 84 115/73 95 Room Air 01/23/25 14:31 86 01/23/25 11:02 37.1 C 83 12 127/78 91 Room Air 01/23/25 07:36 36.7 C 74 16 118/76 94 Room Air 01/23/25 07:27 Room Air 01/23/25 07:21 76 Laboratory Results 01/23/25 Range/Units 05:22 WBC 4.47 L (4.8-10.8) K/ul RBC 3.28 L (4.20-5.40) M/uL Hgb 10.2 L (12.0-16.0) g/dL Hct 29.5 L (37.0-47.0) % MCV 89.9 (80.0-100.0) fL MCH 31.1 (25.0-34.0) pg MCHC 34.6 (32.0-36.0) g/dL RDW Std Deviation 48.3 H (36.4-46.3) fL RDW Coeff of Marielos 14.6 H (11.5-14.5) % Plt Count 192 (130-400) K/uL MPV 11.2 (9.4-12.4) fL Sodium 143 (136-145) mmol/L Potassium 3.8 (3.5-5.1) mmol/L Chloride 113 H (98-107) mmol/L Carbon Dioxide 25 (21-32) mmol/L Anion Gap 5 (3-11) BUN 14 (6-23) mg/dl Creatinine 1.02 (0.6-1.2) mg/dl Est Cr Clr Drug Dosing 59.1 ml/min eGFR 60.30 BUN/Creatinine Ratio 13.7 (10-20) Glucose 87 (70-99(Fasting)) mg/dl Calcium 8.3 L (8.6-10.3) mg/dl Phosphorus 3.6 (2.5-4.9) mg/dl Magnesium 1.8 (1.7-2.4) mg/dl Medications Administered Current Inpatient Medications Acetaminophen (Acetaminophen 500 Mg Tab) 500 mg PO BID SHAWN Stop: 02/21/25 08:59 Last Admin: 01/23/25 08:17 Dose: 500 mg Apixaban (Apixaban 5 Mg Tablet) 5 mg PO BID SHAWN Stop: 02/21/25 08:59 Last Admin: 01/23/25 08:18 Dose: 5 mg Aspirin (Aspirin 81 Mg Chew) 81 mg PO QAM SHAWN Stop: 02/21/25 08:59 Last Admin: 01/23/25 08:17 Dose: 81 mg Atorvastatin Calcium (Atorvastatin 40 Mg Tab) 40 mg PO QAM SHAWN Stop: 02/21/25 08:59 Last Admin: 01/23/25 08:18 Dose: 40 mg Bisacodyl (Bisacodyl 5 Mg Tabec) 15 mg PO HS SHAWN Stop: 02/21/25 20:59 Last Admin: 01/22/25 20:26 Dose: 15 mg Bupropion HCl (Bupropion Sr 100 Mg Tabcr) 100 mg PO BID SHAWN Stop: 02/21/25 08:59 Last Admin: 01/23/25 08:18 Dose: 100 mg Cetirizine HCl (Cetirizine Hcl 10 Mg Tablet) 10 mg PO QPM SHAWN Stop: 02/21/25 20:59 Last Admin: 01/22/25 20:38 Dose: 10 mg Diclofenac Sodium (Diclofenac Sod 1% Gel 100 Gm Tube) 2 gm EXT QID PRN; Protocol PRN Reason: ARTHRITIS Stop: 02/21/25 02:52 Fluticasone/Vilanterol (Fluticasone/Vilanterol 100/25mcg 14 Puffs/Inhaler) 1 puffs INH QAM SHAWN Stop: 02/21/25 08:59 Last Admin: 01/23/25 08:18 Dose: 1 puffs Gabapentin (Gabapentin 400 Mg Cap) 400 mg PO BID SHAWN Stop: 02/21/25 08:59 Last Admin: 01/23/25 08:18 Dose: 400 mg Levothyroxine Sodium (Levothyroxine Sodium 100 Mcg Tablet) 100 mcg PO DAILYBB SHAWN Stop: 02/21/25 06:29 Last Admin: 01/23/25 06:04 Dose: 100 mcg Melatonin (Melatonin 3 Mg Tab) 6 mg PO HS PRN PRN Reason: Sleep Stop: 02/21/25 02:54 Multivitamins (Multivitamin Tab) 1 tab PO DAILY SHAWN Stop: 02/21/25 08:59 Last Admin: 01/23/25 08:18 Dose: 1 tab Oxycodone HCl (Oxycodone Hcl Ir 5 Mg Tab (Immediate Release)) 5 mg PO Q6H PRN PRN Reason: pain Stop: 02/05/25 02:52 Pantoprazole Sodium (Pantoprazole 40 Mg Tab) 40 mg PO Q12 SHAWN Stop: 02/21/25 08:59 Last Admin: 01/23/25 08:18 Dose: 40 mg Polyethylene Glycol (Polyethylene (Miralax) 17 Gm Pack) 17 gm PO QAM PRN PRN Reason: Constipation Stop: 02/21/25 02:52 Quetiapine Fumarate (Quetiapine Fumarate 300 Mg Tablet) 300 mg PO HS SHAWN Stop: 02/21/25 02:54 Last Admin: 01/22/25 20:26 Dose: 300 mg Sennosides (Senna 8.6 Mg Tab) 17.2 mg PO HS PRN PRN Reason: constipation Stop: 02/21/25 03:59 Vitamin D (Cholecalciferol 25 Mcg (1000 Units) Tab) 25 mcg PO QAM [facility] Stop: 02/21/25 08:59 Last Admin: 01/23/25 08:18 Dose: 25 mcg
--- NOTE | 2025-01-23 17:00 | Ultrasound Report ---
DVT ULTRASOUND BILATERAL LOWER EXTREMITY INDICATION: Pain TECHNIQUE: Grayscale and color Doppler evaluation of the BILATERAL femoral-popliteal venous system was performed. A duplex Doppler study was performed, consisting of integrated two-dimensional (2D) real-time imaging: Color flow Doppler and Doppler spectral analysis. COMPARISON: None FINDINGS: RIGHT common femoral, femoral and popliteal veins: Normal compressibility, color flow, respiratory variation. No intraluminal echogenic material. LEFT common femoral, femoral and popliteal veins: Normal compressibility, color flow, respiratory variation. No intraluminal echogenic material. IMPRESSION: No evidence of deep venous thrombus in bilateral femoral-popliteal venous systems. Electronically signed by Nic Stuart 01-23-2025 4:59 PM
[2025-01-23] MEDS: CALCIUM CARBONATE 500 MG CHEWABLE TAB PO PRN (17:18)
[2025-01-23] MEDS: COUGH DROP (SUGAR FREE) LOZ 24 LOZ/1 BOX BUCCAL PRN (23:24)
[2025-01-24 06:27] LABS: Hematocrit (blood only) 31.0 % (37.0-47.0); Hemoglobin 10.6 g/dL (12.0-16.0); Mean Corpuscular Hemoglobin 30.5 pg (25.0-34.0); Mean Corpuscular Volume 89.3 fL (80.0-100.0); Platelet Count 193 K/uL (130-400); RDW Standard Deviation 47.1 fL (36.4-46.3); Red Blood Count 3.47 M/uL (4.20-5.40); White Blood Count 5.16 K/ul (4.8-10.8)
[2025-01-24 06:49] LABS: Anion Gap 6.0 (3-11); Blood Urea Nitrogen 15.0 mg/dl (6-23); Calcium 8.4 mg/dl (8.6-10.3); Carbon Dioxide 24.0 mmol/L (21-32); Chloride 113.0 mmol/L (98-107); Creatinine Clr Calc Pharmacy 61.6 ml/min; Glucose 83.0 mg/dl (70-99(Fasting)); Magnesium 1.8 mg/dl (1.7-2.4); Potassium 3.7 mmol/L (3.5-5.1); Sodium 143.0 mmol/L (136-145)
[2025-01-24] MEDS: KETOROLAC TROMETHAMINE 15 MG/ML VIAL IV ONE (06:54)
[2025-01-24] MEDS: DICLOFENAC SOD 1% GEL 100 GM TUBE EXT PRN (09:33)
--- NOTE | 2025-01-24 10:04 | XRay Report ---
XR cervical spine 2 or 3V CLINICAL HISTORY: neck pain COMPARISON STUDY: None FINDINGS: There are mild degenerative changes at the mid and lower cervical spine. There is grade 1 a nterolisthesis of C5 on 6. No fracture seen. IMPRESSION: Mild degenerative changes. ACT 112: Negative or not required by law. Electronically signed by: Ben Mayfield M.D. 01/24/2025 10:02 AM
--- NOTE | 2025-01-24 10:55 | Ultrasound Report ---
CAROTID ARTERY ULTRASOUND CLINICAL HISTORY: hx of syncope, current neck pain COMPARISON STUDY: None TECHNIQUE: Real-time, grayscale, and color Doppler sonography of the carotid and vertebral arteries w as performed. Images were viewed in the transverse and longitudinal planes. FINDINGS: No significant atherosclerotic plaque seen. Velocities and ratios are normal at the common, internal, and external carotid arteries bilaterally. Maximum velocity on the right is 56 cm/s and ma ximum velocity on the left is 64 cm/s, normal. ICA to CCA ratio on the right is 0.9 and on the left i s 1.1, normal. There is antegrade flow in both vertebral arteries. IMPRESSION: No significant arterial narrowing or occlusion seen at the neck. ACT 112: Negative or not required by law. Electronically signed by: Ben Mayfield M.D. 01/24/2025 10:53 AM
--- NOTE | 2025-01-24 16:50 | Hospitalist Progress Note ---
Date of Service January 24, 2025 Assessment & Plan (1) Syncope: Plan: Per admitting provider w/ addendum: Syncope possibly secondary to orthostasis from diarrheal illness Rule out C. difficile ARF secondary to illness Cr 1.25 on 01/21 -> now down to 1 (resolved), received IVF Check orthostatic vitals - pt found orthostatic on (01/22) Stool C. difficile ordered - no stool sample collected, pt had BM today (01/24) Pt says she was constipated at rehab and so received several stool softeners -> possibly had loose BMs from that, cont. to monitor 01/23 pt feels improved today. Says she was walking to bathroom and did not have any dizziness today. BP also improved after IVF. reports calf pain, obtained Dopplers - negative for DVT Seen by PT - recommend rehab, CM involved 01/24 Pt reported right sided neck pain that started overnight, received toradol overnight. XR Cervical spine - Mild degenerative changes. Carotid dopplers - No significant arterial narrowing or occlusion seen at the neck. Orthopedics consult Re: Postop eval as per patient request (Patient known to Dr. Fuentes.) Status post total right knee replacement: * Case/imaging reviewed and discussed with Dr Fuentes * Patient is recovering as expected from right TKA * No specific complaints regarding the right knee * Recommend continued PT, activity as tolerated * Dressing removed, may leave open to air. Okay for shower * Weight bearing status: WBAT * Daily treatment: Physical Therapy/ Occupational Therapy per protocol * Pain control * Disposition: TBD * Remainder care per primary team * Will follow peripherally in hospital, follow-up as scheduled with Dr. Fuentes in the coming weeks Echo obtained - LV syst. function is normal. LV EF 60-65%. Grade I diastolic dysfunction. Moderate aortic regurg. Mild pulmonic valv. regurg. Mild mitral regurg. Mild tricuspid regurg. Reviewed previous echo from 2023, no significant valvular disease noted at that time. Recommend follow up w/ cardiology. Chronic diastolic heart failure (EF 65-70%, TTE 2023), patient on the dry side on admission. hx nonocclusive CAD/PVD hypertension, stable BP off maintenance medications. transverse sinus thrombosis on Eliquis Recent right knee surgery (12/2024) history gastric bypass anxiety/mood disorder/schizophrenia/fibromyalgia, at baseline hypothyroidism, TSH slight elevated with normal free T4 , Recheck TSH after 6 weeks prediabetes, hemoglobin A1c of 5.5 from October 2024 DVT prophylaxis. Lucien DNR as per patient wishes Patient's son Mr. Socrates Hendricks, contact #[phone]. Admission and Anticipated Discharge Date Admission Date: January 22, 2025 Subjective Pt seen in follow up for falls, poss. syncope Hx of recent knee surgery, then pt was at rehab, was Ca'ed home on Yesterday pt found orthostatic, she has received IVF Today pt seen lying in bed in NAD. She says she is feeling well, except her right side of her neck feels sore, started overnight. Denies any dizziness, also denies any chest pain or shortness of breath. Denies any abd. pain n/v. Seen by PT and recommend rehab. Review of Systems Review of Systems: All systems reviewed & are unremarkable except as noted in Subjective Physical Exam Physical Exam: GENERAL: obese F, pleasant, no respiratory distress SKIN: Normal color, warm HEENT: [place] palpebral conjunctivae, no ptosis NECK : Supple CHEST : Decreased breath sounds, no wheezing HEART : RRR, no obvious murmurs ABDOMEN: soft, nontender EXTREMITIES : moves extremities, dressings removed from RLE - post surg incision looks clean dry, charli noted, + some calf tenderness NEUROLOGIC : Coherent, no facial asymmetry, moves extremities Results & Data Results & Data Vital Signs (Past 12 Hours) Vital Signs Temp Pulse Pulse Resp BP BP Pulse Ox 01/24/25 15:37 37.2 C 01/24/25 15:12 84 20 116/73 94 01/24/25 14:03 89 01/24/25 11:03 36.9 C 87 20 120/81 94 01/24/25 10:47 01/24/25 08:00 37.2 C 82 18 134/80 96 01/24/25 07:24 71 01/24/25 06:25 82 18 108/72 O2 Del Method 01/24/25 15:37 01/24/25 15:12 Room Air 01/24/25 14:03 01/24/25 11:03 Room Air 01/24/25 10:47 Room Air 01/24/25 08:00 Room Air 01/24/25 07:24 01/24/25 06:25 Laboratory Results 01/24/25 Range/Units 05:01 WBC 5.16 (4.8-10.8) K/ul RBC 3.47 L (4.20-5.40) M/uL Hgb 10.6 L (12.0-16.0) g/dL Hct 31.0 L (37.0-47.0) % MCV 89.3 (80.0-100.0) fL MCH 30.5 (25.0-34.0) pg MCHC 34.2 (32.0-36.0) g/dL RDW Std Deviation 47.1 H (36.4-46.3) fL RDW Coeff of Marielos 14.6 H (11.5-14.5) % Plt Count 193 (130-400) K/uL MPV 11.3 (9.4-12.4) fL Sodium 143 (136-145) mmol/L Potassium 3.7 (3.5-5.1) mmol/L Chloride 113 H (98-107) mmol/L Carbon Dioxide 24 (21-32) mmol/L Anion Gap 6 (3-11) BUN 15 (6-23) mg/dl Creatinine 0.98 (0.6-1.2) mg/dl Est Cr Clr Drug Dosing 61.6 ml/min eGFR 63.26 BUN/Creatinine Ratio 15.3 (10-20) Glucose 83 (70-99(Fasting)) mg/dl Calcium 8.4 L (8.6-10.3) mg/dl Phosphorus 3.5 (2.5-4.9) mg/dl Magnesium 1.8 (1.7-2.4) mg/dl Medications Administered Current Inpatient Medications Acetaminophen (Acetaminophen 500 Mg Tab) 500 mg PO BID [facility] Stop: 02/21/25 08:59 Last Admin: 01/24/25 08:51 Dose: 500 mg Apixaban (Apixaban 5 Mg Tablet) 5 mg PO BID [facility] Stop: 02/21/25 08:59 Last Admin: 01/24/25 08:47 Dose: 5 mg Aspirin (Aspirin 81 Mg Chew) 81 mg PO QAM [facility] Stop: 02/21/25 08:59 Last Admin: 01/24/25 08:50 Dose: 81 mg Atorvastatin Calcium (Atorvastatin 40 Mg Tab) 40 mg PO QAM [facility] Stop: 02/21/25 08:59 Last Admin: 01/24/25 08:47 Dose: 40 mg Bisacodyl (Bisacodyl 5 Mg Tabec) 15 mg PO HS [facility] Stop: 02/21/25 20:59 Last Admin: 01/23/25 20:19 Dose: 15 mg Bupropion HCl (Bupropion Sr 100 Mg Tabcr) 100 mg PO BID [facility] Stop: 02/21/25 08:59 Last Admin: 01/24/25 08:47 Dose: 100 mg Calcium Carbonate (Calcium Carbonate 500 Mg Chewable Tab) 500 mg PO TID PRN PRN Reason: Indigestion Stop: 02/22/25 15:29 Last Admin: 01/23/25 17:18 Dose: 500 mg Cetirizine HCl (Cetirizine Hcl 10 Mg Tablet) 10 mg PO QPM [facility] Stop: 02/21/25 20:59 Last Admin: 01/23/25 20:18 Dose: 10 mg Diclofenac Sodium (Diclofenac Sod 1% Gel 100 Gm Tube) 2 gm EXT QID PRN; Protocol PRN Reason: ARTHRITIS Stop: 02/21/25 02:52 Last Admin: 01/24/25 09:33 Dose: 2 gm Fluticasone/Vilanterol (Fluticasone/Vilanterol 100/25mcg 14 Puffs/Inhaler) 1 puffs INH QAM [facility] Stop: 02/21/25 08:59 Last Admin: 01/24/25 08:45 Dose: 1 puffs Gabapentin (Gabapentin 400 Mg Cap) 400 mg PO BID [facility] Stop: 02/21/25 08:59 Last Admin: 01/24/25 08:47 Dose: 400 mg Levothyroxine Sodium (Levothyroxine Sodium 100 Mcg Tablet) 100 mcg PO DAILYBB [facility] Stop: 02/21/25 06:29 Last Admin: 01/24/25 05:54 Dose: 100 mcg Melatonin (Melatonin 3 Mg Tab) 6 mg PO HS PRN PRN Reason: Sleep Stop: 02/21/25 02:54 Menthol (Cough Drop (Sugar Free) Reji 24 Reji/1 Box) 1 reji BUCCAL Q2H PRN PRN Reason: Sore Throat Stop: 02/22/25 22:18 Last Admin: 01/23/25 23:24 Dose: 1 reji Multivitamins (Multivitamin Tab) 1 tab PO DAILY [facility] Stop: 02/21/25 08:59 Last Admin: 01/24/25 08:47 Dose: 1 tab Oxycodone HCl (Oxycodone Hcl Ir 5 Mg Tab (Immediate Release)) 5 mg PO Q6H PRN PRN Reason: pain Stop: 02/05/25 02:52 Pantoprazole Sodium (Pantoprazole 40 Mg Tab) 40 mg PO Q12 [facility] Stop: 02/21/25 08:59 Last Admin: 01/24/25 08:47 Dose: 40 mg Polyethylene Glycol (Polyethylene (Miralax) 17 Gm Pack) 17 gm PO QAM PRN PRN Reason: Constipation Stop: 02/21/25 02:52 Quetiapine Fumarate (Quetiapine Fumarate 300 Mg Tablet) 300 mg PO HS [facility] Stop: 02/21/25 02:54 Last Admin: 01/23/25 20:19 Dose: 300 mg Sennosides (Senna 8.6 Mg Tab) 17.2 mg PO HS PRN PRN Reason: constipation Stop: 02/21/25 03:59 Vitamin D (Cholecalciferol 25 Mcg (1000 Units) Tab) 25 mcg PO QAM [facility] Stop: 02/21/25 08:59 Last Admin: 01/24/25 08:47 Dose: 25 mcg
[2025-01-24] MEDS: SENNA 8.6 MG TAB PO ONE (17:26)
[2025-01-24] MEDS: MAGNESIUM OXIDE 400 MG TAB PO SCH (20:10)
[2025-01-25 06:33] LABS: Hematocrit (blood only) 29.8 % (37.0-47.0); Hemoglobin 10.3 g/dL (12.0-16.0); Mean Corpuscular Hemoglobin 30.6 pg (25.0-34.0); Mean Corpuscular Volume 88.4 fL (80.0-100.0); Platelet Count 188 K/uL (130-400); RDW Standard Deviation 46.5 fL (36.4-46.3); Red Blood Count 3.37 M/uL (4.20-5.40); White Blood Count 3.98 K/ul (4.8-10.8)
[2025-01-25 07:04] LABS: Anion Gap 5.0 (3-11); Blood Urea Nitrogen 18.0 mg/dl (6-23); Calcium 7.8 mg/dl (8.6-10.3); Carbon Dioxide 24.0 mmol/L (21-32); Chloride 113.0 mmol/L (98-107); Creatinine Clr Calc Pharmacy 56.4 ml/min; Glucose 86.0 mg/dl (70-99(Fasting)); Magnesium 1.8 mg/dl (1.7-2.4); Potassium 3.7 mmol/L (3.5-5.1); Sodium 142.0 mmol/L (136-145)
--- NOTE | 2025-01-25 08:13 | Hospitalist Progress Note ---
Date of Service January 25, 2025 Assessment & Plan (1) Syncope: Plan: Per admitting provider w/ addendum: Syncope possibly secondary to orthostasis from diarrheal illness Rule out C. difficile ARF secondary to illness Cr 1.25 on 01/21 -> now down to 1 (resolved), received IVF Check orthostatic vitals - pt found orthostatic on (01/22) Stool pcr - negative Stool C. difficile - not obtained yet Pt says she was constipated at rehab and so received several stool softeners -> possibly had loose BMs from that, cont. to monitor 01/23 pt feels improved today. Says she was walking to bathroom and did not have any dizziness today. BP also improved after IVF. reports calf pain, obtained Dopplers - negative for DVT Seen by PT - recommend rehab, CM involved 01/24 Pt reported right sided neck pain that started overnight, received toradol overnight. XR Cervical spine - Mild degenerative changes. Carotid dopplers - No significant arterial narrowing or occlusion seen at the neck. 01/25 No changes today. Pt feels well overall. Discussed w/ RN. Awaiting placement. Orthopedics consult Re: Postop eval as per patient request (Patient known to Dr. Fuentes.) Status post total right knee replacement: * Case/imaging reviewed and discussed with Dr Fuentes * Patient is recovering as expected from right TKA * No specific complaints regarding the right knee * Recommend continued PT, activity as tolerated * Dressing removed, may leave open to air. Okay for shower * Weight bearing status: WBAT * Daily treatment: Physical Therapy/ Occupational Therapy per protocol * Pain control * Disposition: TBD * Remainder care per primary team * Will follow peripherally in hospital, follow-up as scheduled with Dr. Fuentes in the coming weeks Echo obtained - LV syst. function is normal. LV EF 60-65%. Grade I diastolic dysfunction. Moderate aortic regurg. Mild pulmonic valv. regurg. Mild mitral regurg. Mild tricuspid regurg. Reviewed previous echo from 2023, no significant valvular disease noted at that time. Recommend follow up w/ cardiology. Chronic diastolic heart failure (EF 65-70%, TTE 2023), patient on the dry side on admission. hx nonocclusive CAD/PVD hypertension, stable BP off maintenance medications. transverse sinus thrombosis on Eliquis Recent right knee surgery (12/2024) history gastric bypass anxiety/mood disorder/schizophrenia/fibromyalgia, at baseline hypothyroidism, TSH slight elevated with normal free T4 , Recheck TSH after 6 weeks prediabetes, hemoglobin A1c of 5.5 from October 2024 DVT prophylaxis. Lucien DNR as per patient wishes Patient's son Mr. Socrates Hendricks, contact #[phone]. Admission and Anticipated Discharge Date Admission Date: January 22, 2025 Subjective Pt seen in follow up for falls, poss. syncope Hx of recent knee surgery, then pt was at rehab, was Al'ed home on Pt found to be orthostatic in the hospital, received IVF Today pt seen lying in bed in NAD. She says she is feeling well, except her right side of her neck feels sore. Denies any dizziness, also denies any chest pain or shortness of breath. Denies any abd. pain n/v. Seen by PT and recommend rehab. [facility] denies by insurance. I called [facility] yesterday - plan for [facility], likely Monday. Review of Systems Review of Systems: All systems reviewed & are unremarkable except as noted in Subjective Physical Exam Physical Exam: GENERAL: obese F, pleasant, no respiratory distress SKIN: Normal color, warm HEENT: [place] palpebral conjunctivae, no ptosis NECK : Supple CHEST : Decreased breath sounds, no wheezing HEART : RRR, no obvious murmurs ABDOMEN: soft, nontender EXTREMITIES : moves extremities, dressings removed from RLE - post surg incision looks clean dry, charli noted, + some calf tenderness NEUROLOGIC : Coherent, no facial asymmetry, moves extremities Results & Data Results & Data Vital Signs (Past 12 Hours) Vital Signs Temp Pulse Pulse Resp BP Pulse Ox O2 Del Method 01/25/25 07:15 92 H 01/25/25 02:14 36.7 C 87 16 124/80 94 Room Air 01/24/25 21:59 37.2 C 90 16 122/74 91 Room Air 01/24/25 21:45 91 H 01/24/25 21:28 Room Air Laboratory Results 01/25/25 Range/Units 05:31 WBC 3.98 L (4.8-10.8) K/ul RBC 3.37 L (4.20-5.40) M/uL Hgb 10.3 L (12.0-16.0) g/dL Hct 29.8 L (37.0-47.0) % MCV 88.4 (80.0-100.0) fL MCH 30.6 (25.0-34.0) pg MCHC 34.6 (32.0-36.0) g/dL RDW Std Deviation 46.5 H (36.4-46.3) fL RDW Coeff of Marielos 14.5 (11.5-14.5) % Plt Count 188 (130-400) K/uL MPV 10.9 (9.4-12.4) fL Sodium 142 (136-145) mmol/L Potassium 3.7 (3.5-5.1) mmol/L Chloride 113 H (98-107) mmol/L Carbon Dioxide 24 (21-32) mmol/L Anion Gap 5 (3-11) BUN 18 (6-23) mg/dl Creatinine 1.07 (0.6-1.2) mg/dl Est Cr Clr Drug Dosing 56.4 ml/min eGFR 56.93 BUN/Creatinine Ratio 16.8 (10-20) Glucose 86 (70-99(Fasting)) mg/dl Calcium 7.8 L (8.6-10.3) mg/dl Phosphorus 3.7 (2.5-4.9) mg/dl Magnesium 1.8 (1.7-2.4) mg/dl Medications Administered Current Inpatient Medications Acetaminophen (Acetaminophen 500 Mg Tab) 500 mg PO BID [facility] Stop: 02/21/25 08:59 Last Admin: 01/24/25 20:10 Dose: 500 mg Apixaban (Apixaban 5 Mg Tablet) 5 mg PO BID [facility] Stop: 02/21/25 08:59 Last Admin: 01/24/25 20:10 Dose: 5 mg Aspirin (Aspirin 81 Mg Chew) 81 mg PO QAM [facility] Stop: 02/21/25 08:59 Last Admin: 01/24/25 08:50 Dose: 81 mg Atorvastatin Calcium (Atorvastatin 40 Mg Tab) 40 mg PO QAM [facility] Stop: 02/21/25 08:59 Last Admin: 01/24/25 08:47 Dose: 40 mg Bisacodyl (Bisacodyl 5 Mg Tabec) 15 mg PO HS [facility] Stop: 02/21/25 20:59 Last Admin: 01/24/25 20:10 Dose: 15 mg Bupropion HCl (Bupropion Sr 100 Mg Tabcr) 100 mg PO BID [facility] Stop: 02/21/25 08:59 Last Admin: 01/24/25 20:10 Dose: 100 mg Calcium Carbonate (Calcium Carbonate 500 Mg Chewable Tab) 500 mg PO TID PRN PRN Reason: Indigestion Stop: 02/22/25 15:29 Last Admin: 01/24/25 21:33 Dose: 500 mg Cetirizine HCl (Cetirizine Hcl 10 Mg Tablet) 10 mg PO QPM [facility] Stop: 02/21/25 20:59 Last Admin: 01/24/25 20:10 Dose: 10 mg Diclofenac Sodium (Diclofenac Sod 1% Gel 100 Gm Tube) 2 gm EXT QID PRN; Protocol PRN Reason: ARTHRITIS Stop: 02/21/25 02:52 Last Admin: 01/24/25 17:26 Dose: 2 gm Fluticasone/Vilanterol (Fluticasone/Vilanterol 100/25mcg 14 Puffs/Inhaler) 1 puffs INH QAM [facility] Stop: 02/21/25 08:59 Last Admin: 01/24/25 08:45 Dose: 1 puffs Gabapentin (Gabapentin 400 Mg Cap) 400 mg PO BID [facility] Stop: 02/21/25 08:59 Last Admin: 01/24/25 20:10 Dose: 400 mg Magnesium Sulfate/Dextrose (Magnesium Sulfate / D5w) 1 gm in 100 mls @ 50 mls/hr IV ONE ONE Stop: 01/25/25 10:10 Levothyroxine Sodium (Levothyroxine Sodium 100 Mcg Tablet) 100 mcg PO DAILYBB [facility] Stop: 02/21/25 06:29 Last Admin: 01/25/25 06:23 Dose: 100 mcg Magnesium Oxide (Magnesium Oxide 400 Mg Tab) 400 mg PO BID [facility] Stop: 02/23/25 20:59 Last Admin: 01/24/25 20:10 Dose: 400 mg Melatonin (Melatonin 3 Mg Tab) 6 mg PO HS PRN PRN Reason: Sleep Stop: 02/21/25 02:54 Menthol (Cough Drop (Sugar Free) Reji 24 Reji/1 Box) 1 reji BUCCAL Q2H PRN PRN Reason: Sore Throat Stop: 02/22/25 22:18 Last Admin: 01/24/25 21:33 Dose: 1 reji Multivitamins (Multivitamin Tab) 1 tab PO DAILY [facility] Stop: 02/21/25 08:59 Last Admin: 01/24/25 08:47 Dose: 1 tab Oxycodone HCl (Oxycodone Hcl Ir 5 Mg Tab (Immediate Release)) 5 mg PO Q6H PRN PRN Reason: pain Stop: 02/05/25 02:52 Pantoprazole Sodium (Pantoprazole 40 Mg Tab) 40 mg PO Q12 [facility] Stop: 02/21/25 08:59 Last Admin: 01/24/25 20:10 Dose: 40 mg Polyethylene Glycol (Polyethylene (Miralax) 17 Gm Pack) 17 gm PO QAM PRN PRN Reason: Constipation Stop: 02/21/25 02:52 Potassium Chloride (Potassium Chloride Crtab 20 Meq Tabcr) 20 meq PO NOW STA Stop: 01/25/25 08:13 Quetiapine Fumarate (Quetiapine Fumarate 300 Mg Tablet) 300 mg PO HS [facility] Stop: 02/21/25 02:54 Last Admin: 01/24/25 20:10 Dose: 300 mg Sennosides (Senna 8.6 Mg Tab) 17.2 mg PO HS PRN PRN Reason: constipation Stop: 02/21/25 03:59 Vitamin D (Cholecalciferol 25 Mcg (1000 Units) Tab) 25 mcg PO QAM [facility] Stop: 02/21/25 08:59 Last Admin: 01/24/25 08:47 Dose: 25 mcg
[2025-01-25] MEDS: MAGNESIUM SULFATE / D5W 1 GM/100 ML BAG IV ONE (09:13)
[2025-01-25] MEDS: POTASSIUM CHLORIDE CRTAB 20 MEQ TABCR PO STA (09:13)
[2025-01-25 10:25] LABS: Adenovirus F 40/41 PCR Not Detected (NotDetected); Campylobacter PCR Not Detected (NotDetected); Enteroaggregative E.coli(EAEC) Not Detected (NotDetected); Shiga-like Toxin E.coli (STEC) Not Detected (NotDetected); Vibrio species PCR Not Detected (NotDetected)
[2025-01-25 13:06] LABS: Cdiff Toxin B Gene (2yr or >) Negative Cdiff Gene (Neg)
--- NOTE | 2025-01-26 11:33 | Hospitalist Progress Note ---
Date of Service January 26, 2025 Assessment & Plan (1) Syncope: Plan: Per admitting provider w/ addendum: Syncope possibly secondary to orthostasis from diarrheal illness Rule out C. difficile ARF secondary to illness Cr 1.25 on 01/21 -> now down to 1 (resolved), received IVF Check orthostatic vitals - pt found orthostatic on (01/22) Stool pcr - negative Stool C. difficile - not obtained yet Pt says she was constipated at rehab and so received several stool softeners -> possibly had loose BMs from that, cont. to monitor 01/23 pt feels improved today. Says she was walking to bathroom and did not have any dizziness today. BP also improved after IVF. reports calf pain, obtained Dopplers - negative for DVT Seen by PT - recommend rehab, CM involved 01/24 Pt reported right sided neck pain that started overnight, received toradol overnight. XR Cervical spine - Mild degenerative changes. Carotid dopplers - No significant arterial narrowing or occlusion seen at the neck. Pt feels well overall. Discussed w/ RN. Likely Dc to rehab on Monday Orthopedics consult Re: Postop eval as per patient request (Patient known to Dr. Fuentes.) Status post total right knee replacement: * Case/imaging reviewed and discussed with Dr Fuentes * Patient is recovering as expected from right TKA * No specific complaints regarding the right knee * Recommend continued PT, activity as tolerated * Dressing removed, may leave open to air. Okay for shower * Weight bearing status: WBAT * Daily treatment: Physical Therapy/ Occupational Therapy per protocol * Pain control * Disposition: TBD * Remainder care per primary team * Will follow peripherally in hospital, follow-up as scheduled with Dr. Fuentes in the coming weeks Echo obtained - LV syst. function is normal. LV EF 60-65%. Grade I diastolic dysfunction. Moderate aortic regurg. Mild pulmonic valv. regurg. Mild mitral regurg. Mild tricuspid regurg. Reviewed previous echo from 2023, no significant valvular disease noted at that time. Recommend follow up w/ cardiology. Chronic diastolic heart failure (EF 65-70%, TTE 2023), patient on the dry side on admission. hx nonocclusive CAD/PVD hypertension, stable BP off maintenance medications. transverse sinus thrombosis on Eliquis Recent right knee surgery (12/2024) history gastric bypass anxiety/mood disorder/schizophrenia/fibromyalgia, at baseline hypothyroidism, TSH slight elevated with normal free T4 , Recheck TSH after 6 weeks prediabetes, hemoglobin A1c of 5.5 from October 2024 DVT prophylaxis. Lucien DNR as per patient wishes Patient's son Mr. Socrates Hendricks, contact #[phone]. Admission and Anticipated Discharge Date Admission Date: January 22, 2025 Subjective Pt seen in follow up for falls, poss. syncope Hx of recent knee surgery, then pt was at rehab, was Ut'ed home on Pt found to be orthostatic in the hospital, received IVF Currently pt seen lying in bed in NAD. no new complaints. Denies any dizziness, also denies any chest pain or shortness of breath. Denies any abd. pain n/v. Seen by PT and recommend rehab. [facility] denied by insurance. I called [facility] on Monday - plan for [facility], likely Monday. Review of Systems Review of Systems: All systems reviewed & are unremarkable except as noted in Subjective Physical Exam Physical Exam: GENERAL: obese F, pleasant, no respiratory distress SKIN: Normal color, warm HEENT: [place] palpebral conjunctivae, no ptosis NECK : Supple CHEST : Decreased breath sounds, no wheezing HEART : RRR, no obvious murmurs ABDOMEN: soft, nontender EXTREMITIES : moves extremities, dressings removed from RLE - post surg incision looks clean dry, charli noted, + some calf tenderness NEUROLOGIC : Coherent, no facial asymmetry, moves extremities Results & Data Results & Data Vital Signs (Past 12 Hours) Vital Signs Temp Pulse Resp BP Pulse Ox Pulse Ox O2 Del Method 01/26/25 08:03 36.7 C 89 16 120/82 97 Room Air 01/26/25 04:07 36.7 C 88 16 116/77 97 Room Air 01/26/25 03:00 97 01/25/25 23:47 36.8 C 87 16 111/74 97 Room Air O2 Del Method 01/26/25 08:03 01/26/25 04:07 01/26/25 03:00 Room Air 01/25/25 23:47 Laboratory Results 01/25/25 Range/Units 08:50 Stl C. diff Tox B Gene Negative Cdiff Gene (Neg) Stl C. diff [id number] NEGATIVE Medications Administered Current Inpatient Medications Acetaminophen (Acetaminophen 500 Mg Tab) 500 mg PO BID [facility] Stop: 02/21/25 08:59 Last Admin: 01/26/25 07:50 Dose: 500 mg Apixaban (Apixaban 5 Mg Tablet) 5 mg PO BID [facility] Stop: 02/21/25 08:59 Last Admin: 01/26/25 07:48 Dose: 5 mg Aspirin (Aspirin 81 Mg Chew) 81 mg PO QAM [facility] Stop: 02/21/25 08:59 Last Admin: 01/26/25 07:50 Dose: 81 mg Atorvastatin Calcium (Atorvastatin 40 Mg Tab) 40 mg PO QAM [facility] Stop: 02/21/25 08:59 Last Admin: 01/26/25 07:47 Dose: 40 mg Bisacodyl (Bisacodyl 5 Mg Tabec) 15 mg PO HS [facility] Stop: 02/21/25 20:59 Last Admin: 01/25/25 20:28 Dose: 15 mg Bupropion HCl (Bupropion Sr 100 Mg Tabcr) 100 mg PO BID [facility] Stop: 02/21/25 08:59 Last Admin: 01/26/25 07:48 Dose: 100 mg Calcium Carbonate (Calcium Carbonate 500 Mg Chewable Tab) 500 mg PO TID PRN PRN Reason: Indigestion Stop: 02/22/25 15:29 Last Admin: 01/25/25 18:32 Dose: 500 mg Cetirizine HCl (Cetirizine Hcl 10 Mg Tablet) 10 mg PO QPM [facility] Stop: 02/21/25 20:59 Last Admin: 01/25/25 20:30 Dose: 10 mg Diclofenac Sodium (Diclofenac Sod 1% Gel 100 Gm Tube) 2 gm EXT QID PRN; Protocol PRN Reason: ARTHRITIS Stop: 02/21/25 02:52 Last Admin: 01/26/25 07:46 Dose: 2 gm Fluticasone/Vilanterol (Fluticasone/Vilanterol 100/25mcg 14 Puffs/Inhaler) 1 puffs INH QAM [facility] Stop: 02/21/25 08:59 Last Admin: 01/26/25 07:47 Dose: 1 puffs Gabapentin (Gabapentin 400 Mg Cap) 400 mg PO BID [facility] Stop: 02/21/25 08:59 Last Admin: 01/26/25 07:48 Dose: 400 mg Levothyroxine Sodium (Levothyroxine Sodium 100 Mcg Tablet) 100 mcg PO DAILYBB [facility] Stop: 02/21/25 06:29 Last Admin: 01/26/25 06:08 Dose: 100 mcg Magnesium Oxide (Magnesium Oxide 400 Mg Tab) 400 mg PO BID [facility] Stop: 02/23/25 20:59 Last Admin: 01/26/25 07:48 Dose: 400 mg Melatonin (Melatonin 3 Mg Tab) 6 mg PO HS PRN PRN Reason: Sleep Stop: 02/21/25 02:54 Menthol (Cough Drop (Sugar Free) Reji 24 Reji/1 Box) 1 reji BUCCAL Q2H PRN PRN Reason: Sore Throat Stop: 02/22/25 22:18 Last Admin: 01/24/25 21:33 Dose: 1 reji Multivitamins (Multivitamin Tab) 1 tab PO DAILY [facility] Stop: 02/21/25 08:59 Last Admin: 01/26/25 07:48 Dose: 1 tab Oxycodone HCl (Oxycodone Hcl Ir 5 Mg Tab (Immediate Release)) 5 mg PO Q6H PRN PRN Reason: pain Stop: 02/05/25 02:52 Pantoprazole Sodium (Pantoprazole 40 Mg Tab) 40 mg PO Q12 [facility] Stop: 02/21/25 08:59 Last Admin: 01/26/25 07:47 Dose: 40 mg Polyethylene Glycol (Polyethylene (Miralax) 17 Gm Pack) 17 gm PO QAM PRN PRN Reason: Constipation Stop: 02/21/25 02:52 Quetiapine Fumarate (Quetiapine Fumarate 300 Mg Tablet) 300 mg PO HS [facility] Stop: 02/21/25 02:54 Last Admin: 01/25/25 20:29 Dose: 300 mg Sennosides (Senna 8.6 Mg Tab) 17.2 mg PO HS PRN PRN Reason: constipation Stop: 02/21/25 03:59 Vitamin D (Cholecalciferol 25 Mcg (1000 Units) Tab) 25 mcg PO QAM [facility] Stop: 02/21/25 08:59 Last Admin: 01/26/25 07:48 Dose: 25 mcg
--- NOTE | 2025-01-27 19:20 | Hospitalist Progress Note ---
Date of Service January 27, 2025 Assessment & Plan (1) Syncope: Plan: Per admitting provider w/ addendum: Syncope possibly secondary to orthostasis from diarrheal illness Rule out C. difficile ARF secondary to illness Cr 1.25 on 01/21 -> now down to 1 (resolved), received IVF Check orthostatic vitals - pt found orthostatic on (01/22) Stool pcr - negative, Stool C. difficile - negative Pt says she was constipated at rehab and so received several stool softeners -> possibly had loose BMs from that, cont. to monitor 01/23 pt feels improved today. Says she was walking to bathroom and did not have any dizziness today. BP also improved after IVF. reports calf pain, obtained Dopplers - negative for DVT Seen by PT - recommend rehab, CM involved 01/24 Pt reported right sided neck pain that started overnight, received toradol overnight. XR Cervical spine - Mild degenerative changes. Carotid dopplers - No significant arterial narrowing or occlusion seen at the neck. 01/25- Pt feels well overall. CM involved in DC plan Orthopedics consult Re: Postop eval as per patient request (Patient known to Dr. Fuentes.) Status post total right knee replacement: * Case/imaging reviewed and discussed with Dr Fuentes * Patient is recovering as expected from right TKA * No specific complaints regarding the right knee * Recommend continued PT, activity as tolerated * Dressing removed, may leave open to air. Okay for shower * Weight bearing status: WBAT * Daily treatment: Physical Therapy/ Occupational Therapy per protocol * Pain control * Disposition: TBD * Remainder care per primary team * Will follow peripherally in hospital, follow-up as scheduled with Dr. Fuentes in the coming weeks Echo obtained - LV syst. function is normal. LV EF 60-65%. Grade I diastolic dysfunction. Moderate aortic regurg. Mild pulmonic valv. regurg. Mild mitral regurg. Mild tricuspid regurg. Reviewed previous echo from 2023, no significant valvular disease noted at that time. Recommend follow up w/ cardiology. Chronic diastolic heart failure (EF 65-70%, TTE 2023), patient on the dry side on admission. hx nonocclusive CAD/PVD hypertension, stable BP off maintenance medications. transverse sinus thrombosis on Eliquis Recent right knee surgery (12/2024) history gastric bypass anxiety/mood disorder/schizophrenia/fibromyalgia, at baseline hypothyroidism, TSH slight elevated with normal free T4 , Recheck TSH after 6 weeks prediabetes, hemoglobin A1c of 5.5 from October 2024 DVT prophylaxis. Lucien DNR as per patient wishes Patient's son Mr. Socrates Hendricks, contact #[phone]. Admission and Anticipated Discharge Date Admission Date: January 22, 2025 Subjective Pt seen in follow up for falls, poss. syncope Hx of recent knee surgery, then pt was at rehab, was Va'ed home on Pt found to be orthostatic in the hospital, received IVF Currently pt seen sitting up in chair in NAD. no new complaints. Denies any dizziness, also denies any chest pain or shortness of breath. Denies any abd. pain n/v. Seen by PT and recommend rehab. [facility] denied by insurance. I called [facility] on Monday - plan for [facility], CM involved. Review of Systems Review of Systems: All systems reviewed & are unremarkable except as noted in Subjective Physical Exam Physical Exam: GENERAL: obese F, pleasant, no respiratory distress SKIN: Normal color, warm HEENT: [place] palpebral conjunctivae, no ptosis NECK : Supple CHEST : Decreased breath sounds, no wheezing HEART : RRR, no obvious murmurs ABDOMEN: soft, nontender EXTREMITIES : moves extremities, dressings removed from RLE - post surg incision looks clean dry, charli noted, + some calf tenderness NEUROLOGIC : Coherent, no facial asymmetry, moves extremities Results & Data Results & Data Vital Signs (Past 12 Hours) Vital Signs Temp Pulse Pulse BP Pulse Ox O2 Del Method 01/27/25 15:38 36.9 C 88 130/76 96 Room Air 01/27/25 12:00 85 01/27/25 11:27 36.8 C 90 114/74 95 Room Air 01/27/25 07:37 Room Air 01/27/25 07:35 36.9 C 80 119/80 96 Room Air Medications Administered Current Inpatient Medications Acetaminophen (Acetaminophen 500 Mg Tab) 500 mg PO BID SHAWN Stop: 02/21/25 08:59 Last Admin: 01/27/25 08:47 Dose: 500 mg Apixaban (Apixaban 5 Mg Tablet) 5 mg PO BID SH[facility] Stop: 02/21/25 08:59 Last Admin: 01/27/25 08:47 Dose: 5 mg Aspirin (Aspirin 81 Mg Chew) 81 mg PO QAM [facility] Stop: 02/21/25 08:59 Last Admin: 01/27/25 08:47 Dose: 81 mg Atorvastatin Calcium (Atorvastatin 40 Mg Tab) 40 mg PO QAM [facility] Stop: 02/21/25 08:59 Last Admin: 01/27/25 08:47 Dose: 40 mg Bisacodyl (Bisacodyl 5 Mg Tabec) 15 mg PO HS [facility] Stop: 02/21/25 20:59 Last Admin: 01/26/25 20:24 Dose: 15 mg Bupropion HCl (Bupropion Sr 100 Mg Tabcr) 100 mg PO BID [facility] Stop: 02/21/25 08:59 Last Admin: 01/27/25 08:47 Dose: 100 mg Calcium Carbonate (Calcium Carbonate 500 Mg Chewable Tab) 500 mg PO TID PRN PRN Reason: Indigestion Stop: 02/22/25 15:29 Last Admin: 01/25/25 18:32 Dose: 500 mg Cetirizine HCl (Cetirizine Hcl 10 Mg Tablet) 10 mg PO QPM [facility] Stop: 02/21/25 20:59 Last Admin: 01/26/25 20:25 Dose: 10 mg Diclofenac Sodium (Diclofenac Sod 1% Gel 100 Gm Tube) 2 gm EXT QID PRN; Protocol PRN Reason: ARTHRITIS Stop: 02/21/25 02:52 Last Admin: 01/27/25 11:33 Dose: 2 gm Fluticasone/Vilanterol (Fluticasone/Vilanterol 100/25mcg 14 Puffs/Inhaler) 1 puffs INH QAM [facility] Stop: 02/21/25 08:59 Last Admin: 01/27/25 08:47 Dose: 1 puffs Gabapentin (Gabapentin 400 Mg Cap) 400 mg PO BID [facility] Stop: 02/21/25 08:59 Last Admin: 01/27/25 08:46 Dose: 400 mg Levothyroxine Sodium (Levothyroxine Sodium 100 Mcg Tablet) 100 mcg PO DAILYBB [facility] Stop: 02/21/25 06:29 Last Admin: 01/27/25 06:15 Dose: 100 mcg Magnesium Oxide (Magnesium Oxide 400 Mg Tab) 400 mg PO BID [facility] Stop: 02/23/25 20:59 Last Admin: 01/27/25 08:47 Dose: 400 mg Melatonin (Melatonin 3 Mg Tab) 6 mg PO HS PRN PRN Reason: Sleep Stop: 02/21/25 02:54 Menthol (Cough Drop (Sugar Free) Reji 24 Reji/1 Box) 1 reji BUCCAL Q2H PRN PRN Reason: Sore Throat Stop: 02/22/25 22:18 Last Admin: 01/24/25 21:33 Dose: 1 reji Multivitamins (Multivitamin Tab) 1 tab PO DAILY SHAWN Stop: 02/21/25 08:59 Last Admin: 01/27/25 08:46 Dose: 1 tab Oxycodone HCl (Oxycodone Hcl Ir 5 Mg Tab (Immediate Release)) 5 mg PO Q6H PRN PRN Reason: pain Stop: 02/05/25 02:52 Pantoprazole Sodium (Pantoprazole 40 Mg Tab) 40 mg PO Q12 [facility] Stop: 02/21/25 08:59 Last Admin: 01/27/25 08:47 Dose: 40 mg Polyethylene Glycol (Polyethylene (Miralax) 17 Gm Pack) 17 gm PO QAM PRN PRN Reason: Constipation Stop: 02/21/25 02:52 Quetiapine Fumarate (Quetiapine Fumarate 300 Mg Tablet) 300 mg PO HS [facility] Stop: 02/21/25 02:54 Last Admin: 01/26/25 20:24 Dose: 300 mg Sennosides (Senna 8.6 Mg Tab) 17.2 mg PO HS PRN PRN Reason: constipation Stop: 02/21/25 03:59 Vitamin D (Cholecalciferol 25 Mcg (1000 Units) Tab) 25 mcg PO QAM [facility] Stop: 02/21/25 08:59 Last Admin: 01/27/25 08:47 Dose: 25 mcg
[2025-01-28 12:13] VITALS: BP 129/86; RESP 16; TEMP 98.4; O2SAT 95
--- NOTE | 2025-01-28 12:58 | Discharge Summary ---
Date of Service January 28, 2025 Admission HPI Per Admitting Provider History obtained from patient and records. Medical history significant for chronic diastolic heart failure (EF 65-70%, TTE 2023), nonocclusive CAD, PVD, hypertension, transverse sinus thrombosis on Eliquis, AMIRA, GERD, history gastric bypass, anxiety/mood disorder/schizophrenia/fibromyalgia, hypothyroidism, prediabetes. Recent confinement December 24-2024 under Orthopedics service for elective right total knee arthroplasty. Unremarkable postop course. Patient discharged to [facility] for rehab. Patient discharged home from rehab 4 days ago. Patient feels she was discharged home too early but she had to leave because of insurance issues. Patient had trouble getting around upon return home. Yesterday, patient was walking when she felt a downward force pulling her down. Patient thinks she may have passed out. No head trauma, no headache, no weakness seizures, no chest pain, no SOB. Increasing weakness since yesterday. Watery diarrhea symptoms without abdominal pain. Fair appetite. Patient had another fall today without LOC, head trauma, chest pain or SOB. Achy leg pain from fall patient had trouble getting up. Patient denies abdominal pain or dysuria symptoms. Patient brought to ER for evaluation. Medical History as above Surgical History : Dental surgery, hand/finger surgery, hysterectomy, laparoscopic cholecystectomy, cataract surgeries, umbilical hernia repair, gastric bypass, right knee surgery Family History : Lung cancer, ovarian cancer, liver cancer, heart disease Personal/Social history : Non-smoker, no EtOH intake, retired [employer] Admission Exam Per Admitting Provider GENERAL: morbidly obese, pleasant, no respiratory distress SKIN: Normal color, warm HEENT: [place] palpebral conjunctivae, no ptosis, dry buccal mucosa NECK : Supple, short neck, no tenderness CHEST : Decreased breath sounds, no tenderness HEART : RRR, no obvious murmurs ABDOMEN: distention, no tenderness EXTREMITIES : RLE wrapped, no tenderness NEUROLOGIC : Coherent, no facial asymmetry, occasional rest tremors, gait and stance not assessed Principal Diagnosis Fall, syncope, orthostatic hypotension, MADAN Recent knee surgery Discharge Exam GENERAL: obese F, pleasant, no respiratory distress SKIN: Normal color, warm HEENT: [place] palpebral conjunctivae, no ptosis NECK : Supple CHEST : Decreased breath sounds, no wheezing HEART : RRR, no obvious murmurs ABDOMEN: soft, nontender EXTREMITIES : moves extremities, dressings removed from RLE - post surg incision looks clean dry, charli noted NEUROLOGIC : Coherent, no facial asymmetry, moves extremities Discharge Data Allergies Allergy/AdvReac Type Severity Reaction Status Date / Time semaglutide [From Wegovy] Allergy Intermediate Abdominal Verified 12/23/24 07:34 Pain paroxetine AdvReac Mild Dizziness Verified 12/23/24 07:34 Consultations 01/22/25 02:04 ED Decision to Admit Stat 01/22/25 02:56 Consult Orthopedic Surgery Routine Ordered Studies 01/23/25 15:16 US venous doppler LE BI Routine FINDINGS: RIGHT common femoral, femoral and popliteal veins: Normal compressibility, color flow, respiratory variation. No intraluminal echogenic material. LEFT common femoral, femoral and popliteal veins: Normal compressibility, color flow, respiratory variation. No intraluminal echogenic material. IMPRESSION: No evidence of deep venous thrombus in bilateral femoral-popliteal venous systems. 01/24/25 08:44 US carotid doppler BI Urgent FINDINGS: No significant atherosclerotic plaque seen. Velocities and ratios are normal at the common, internal, and external carotid arteries bilaterally. Maximum velocity on the right is 56 cm/s and maximum velocity on the left is 64 cm/s, normal. ICA to CCA ratio on the right is 0.9 and on the left is 1.1, normal. There is antegrade flow in both vertebral arteries. IMPRESSION: No significant arterial narrowing or occlusion seen at the neck. Hospital Course (1) Syncope: Syncope possibly secondary to orthostasis from diarrheal illness Rule out C. difficile ARF secondary to illness Cr 1.25 on 01/21 -> now down to 1 (resolved), received IVF Check orthostatic vitals - pt found orthostatic on (01/22) Stool pcr - negative, Stool C. difficile - negative Pt says she was constipated at rehab and so received several stool softeners -> possibly had loose BMs from that, cont. to monitor 01/23 pt feels improved today. Says she was walking to bathroom and did not have any dizziness today. BP also improved after IVF. reports calf pain, obtained Dopplers - negative for DVT Seen by PT - recommend rehab, CM involved 01/24 Pt reported right sided neck pain that started overnight, received toradol overnight. XR Cervical spine - Mild degenerative changes. Carotid dopplers - No significant arterial narrowing or occlusion seen at the neck. 01/25- Pt feels well overall. CM involved in DC plan 01/28 Pt approved for rehab but now pt and family feel she can be at home. Plan to DC home with HH and family support.. Orthopedics consult Re: Postop eval as per patient request (Patient known to Dr. Fuentes.) Status post total right knee replacement: * Case/imaging reviewed and discussed with Dr Fuentes * Patient is recovering as expected from right TKA * No specific complaints regarding the right knee * Recommend continued PT, activity as tolerated * Dressing removed, may leave open to air. Okay for shower * Weight bearing status: WBAT * Daily treatment: Physical Therapy/ Occupational Therapy per protocol * Pain control * Disposition: TBD * Remainder care per primary team * Will follow peripherally in hospital, follow-up as scheduled with Dr. Fuentes in the coming weeks Echo obtained - LV syst. function is normal. LV EF 60-65%. Grade I diastolic dysfunction. Moderate aortic regurg. Mild pulmonic valv. regurg. Mild mitral regurg. Mild tricuspid regurg. Reviewed previous echo from 2023, no significant valvular disease noted at that time. Recommend follow up w/ cardiology. Chronic diastolic heart failure (EF 65-70%, TTE 2023), patient on the dry side on admission. hx nonocclusive CAD/PVD hypertension, stable BP off maintenance medications. transverse sinus thrombosis on Eliquis Recent right knee surgery (12/2024) history gastric bypass anxiety/mood disorder/schizophrenia/fibromyalgia, at baseline hypothyroidism, TSH slight elevated with normal free T4 , Recheck TSH after 6 weeks prediabetes, hemoglobin A1c of 5.5 from October 2024 Total Time Total Time Spent Total Time Spent (In Minutes): 35 Discharge Plan Discharge Items Patient Disposition: Home - Home Health Services Reason For Visit: RECURRENT FALLS, SYNCOPE Discharge Diagnosis: Fall, syncope, orthostatic hypotension, MADAN Recent knee surgery Condition on Discharge: Good Activity: Per Instructions section Non-emergency contact: Primary Care Provider and Surgeon Call non-emergency contact if: you have any medication questions and your symptoms worsen Follow-up/Referrals: Kennedy Brooks MD [Primary Care Provider] - (Date & Time 01/31/2025 10:40 AM Provider: Kennedy Brooks MD [facility] ) Diet: Heart Healthy Add Attending Provider Instructions: Follow up with primary care doctor and orthopedic surgeon. The appointment with primary care doctor was scheduled for you for 01/31/2025. Pending Studies at Discharge: No Stand-Alone Forms: My [facility], Smoking Cessation Medications and DC Order Prescriptions: Continued levothyroxine [Synthroid] 100 mcg tablet 100 mcg PO QAM polyethylene glycol 3350 17 gram Powder In Packet 17 g PO QAM PRN (Reason: Constipation) omeprazole 40 mg capsule,delayed release(DR/EC) 40 mg PO Q12 ondansetron 4 mg tablet,disintegrating 4 mg translingual Q8 PRN (Reason: Nausea) atorvastatin [Lipitor] 40 mg tablet 40 mg PO QAM Eliquis 5 mg tablet 5 mg PO BID aspirin 81 mg Tablet,Chewable 81 mg PO QAM cholecalciferol (vitamin D3) [Vitamin D3] 25 mcg (1,000 unit) Tablet 25 mcg PO QAM fluticasone furoate-vilanterol [Breo Ellipta] 100-25 mcg/dose Blister With Device 1 inh INHALATION QAM levocetirizine [24HR Allergy Relief] 5 mg tablet 5 mg PO QPM quetiapine [Seroquel] 300 mg tablet 300 mg PO HS diclofenac sodium 1 % Gel 2 g TOPICAL QID PRN (Reason: ARTHRITIS) Rx Instructions: apply to single elbow, wrist or hand; for hand includes palm/fingers/back of hand multivitamin [Daily Multi-Vitamin] Tablet 1 tab PO DAILY gabapentin [Neurontin] 400 mg capsule 400 mg PO BID Rx Instructions: "take 1 capsule by mouth every 8 hours at 12:00am, 8:00am and 4:00pm." bupropion HCl [Wellbutrin SR] 150 mg Tablet Sustained-Release 12 Hr 100 mg PO BID bisacodyl [Dulcolax (bisacodyl)] 5 mg Tablet,Delayed Release (Dr/Ec) 15 mg PO HS Senokot Extra Strength 17.2 mg tablet 17.2 mg PO HS PRN (Reason: constipation) Qty: 14 0RF oxycodone 5 mg tablet 5 mg PO Q6H PRN (Reason: pain) Qty: 30 0RF acetaminophen [Acetaminophen Extra Strength] 500 mg tablet 500 mg PO BID Discharge Orders: Discharge Order (Routine); Ordered 01/28/25 Ordered By: Napoleon Corbett Admission Data Admit Date/Time: 01/22/25 16:25 Attending Provider: Napoleon Corbett Admit Provider: Nhan Chiu Primary Care Provider: Kennedy Brooks Other Providers: Nhan Chiu; Hans Fuentes; [facility]; [facility]
[2025-01-28 14:44] VITALS: PULSE 97
== END 2025-01-28 18:14 | disposition home health service (06) | DRG 312 ==
LOC: EDINP 21:26 → ED 21:26 → 2W 01-22 06:43